=== PATIENT | female | born 2000 | race Hispanic/Latino ===

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

== ENCOUNTER 2021-05-27 18:01 | Emergency (ER) | payer OTHER ==
--- OUTSIDE RECORDS SUMMARY | 2021-05-27 18:06 | XMS REPORT | Continuity of Care Document ---
:2000 Author Organization [facility] t Address [address] [place] [address] Care Team Providers Name Role Phone PCP, DOES NOT HAVE A Primary Care Physician Unavailable RONI SMITH Attending Clinician Unavailable RONI SMITH Attending Clinician Unavailable Chandan Santamaria MD Attending Clinician Antonio OCAMPO Attending Clinician Sj ISRAEL Attending Clinician Sheyla ISRAEL Attending Clinician SJ Attending Clinician Unavailable Courtney Smith MD Attending Clinician Doctor Unassigned, Name Attending Clinician Unavailable López Attending Clinician Eusebio Rivera MD Attending Clinician Eusebio RIVERA Attending Clinician Unavailable Chandan Santamaria MD Admitting Clinician CHANDAN SANTAMARIA Admitting Clinician Unavailable Eusebio RIVERA Admitting Clinician Unavailable Payers Payer Name Policy Type Policy Number Effective Date Expiration Date Courtney JONES [id number] 2019 00:00:00 [place] [employer] [id number] 2017 HEALTH 00:00:00 Problems Condition Condition Condition Status Onset Resolution Last Treating Co mments Source Name Details Category Date Date Treatment Clinician Date Dehydratio Dehydratio Disease Active U nivers n n 9-12 ity of 00:00: [place] 00 Medical Branch Weakness Weakness Disease Active Unive rs of both of both 9-12 ity of lower lower 00:00: [place] extremitie extremitie 00 Me dical s s Branch Cystitis Cystitis Disease Active Unive rs 9-12 ity of 00:00: [place] 00 Medical Branch Complaints Complaints Disease Active U nivers of of 9-12 ity of weakness weakness 00:00: [place] of lower of lower 00 Medica l extremity extremity Bran ch No known No known Disease Unive rs active active ity of problems problems [facility] Allergies, Adverse Reactions, Alerts Allergy Allergy Status Severity Reaction(s) Onset Inactive Treating Comm ents Source Name Type Date Date Clinician [place] Propensi Active Hives Univers And ty to 9-10 ity of Derivati adverse 00:00: [place] ves reaction 00 Medical s Branch CITRUS Drug Active Hives Univers AND Class 9-10 ity of DERIVATI 00:00: [place] VES 00 Medical Branch Fruit Propensi Active Unknown - Allergy Univ ers Flavor ty to See comments 10-06 to ity of adverse 00:00: oranges [place] reaction 00 Medical s Branch FRUIT DRUG Active Unknown-Cmnt Univ ers FLAVOR INGREDI 10-06 ity of 00:00: [place] 00 Medical Branch Social History Social Habit Start Date Stop Date Quantity Comments Source Exposure to Not sure [facility] SARS-CoV-2 (event) [facility] Tobacco use and 2017-11-19 2017-11-19 Never used [facility] exposure 00:00:00 00:00:00 Medical [place] Sex Assigned At [birth year] [facility] 00:00:00 00:00:00 Medical Branch Smoking Status Start Date Stop Date Source Never smoker [facility] Medications Ordered Filled Start Stop Current Ordering Indication Dosage Frequency Signature Comments Components Source Medication Medication Date Date Medication? Clinician (SIG) Name Name Potassium Yes 40meq 40 mEq, Univ ers Bicarb-Citr 12-04 Oral, ity of ic Acid 14:00: DAILY, [place] (EFFER-K) 00 First dose Medi lilibeth effervescen on Thu [place] t tablet 40 12/04/20 at mEq 0900, Until Discontinu ed, Routine Potassium Yes 40meq 40 mEq, Univ ers Bicarb-Citr 9-14 Oral, ity of ic Acid 14:00: DAILY, [place] (EFFER-K) 00 First dose Medi lilibeth effervescen on Thu t tablet 40 12/04/20 at mEq 0900, Until Discontinu ed, Routine prazosin Yes 1mg 1 mg, Univers (MINIPRES) 9-14 Oral, QHS, ity of capsule 1 02:00: [place] 00 on [facility] 12/03/20 at [place] 2100, Until Discontinu ed, Routine prazosin Yes 1mg 1 mg, Univers (MINIPRES) 9-14 Oral, QHS, ity of capsule 1 02:00: First dose [place] mg 00 on [facility] 12/03/20 at [place] 2100, Until Discontinu ed, Routine vitamin 2020- No [id number] 1000ug Take 1 U nivers B-12 1,000 9-14 10-15 tablet by ity of mcg tablet 00:00: 04:59 mouth [place] 00 :00 daily for Medical 30 days. [place] vitamin 2020- No [id number] 1000ug Take 1 U nivers B-12 1,000 -14 10-15 tablet by ity of mcg tablet 00:00: 04:59 mouth [place] 00 :00 daily for Medical 30 days. [place] gadoteridol 2020- No [id number] .2mL/kg 11.8 mL Univers (PROHANCE-1 12-03 (0.2 mL/kg i ty of 5 mL) 17:00: 17:00 ?59 kg), [place] injection 00 :00 Intravenou Medi lilibeth 11.8 mL s, ONCE, 1 Branch dose, On [facility] 12/03/20 at 1200, Routine gadoteridol 2020- No [id number] .2mL/kg 11.8 mL Univers (PROHANCE-1 12-03 (0.2 mL/kg i ty of 5 mL) 17:00: 17:00 ?59 kg), [place] injection 00 :00 Intravenou Medi lilibeth 11.8 mL s, ONCE, 1 Branch dose, On [facility] 12/03/20 at 1200, Routine vitamin Yes 1000ug 1,000 mcg, Un spring B-12 12-03 Oral, ity of (CYANOCOBAL 14:00: DAILY, [place] RAM) 00 First dose Medical tablet on Mon Branch 1,000 mcg 12/03/20 at 0900, Until Discontinu ed, Routine pantoprazol Yes 40mg 40 mg, [facility] ers e 12-03 Oral, ity of (PROTONIX) 14:00: DAILY, [place] EC tablet 00 First dose Medi lilibeth 40 mg on Thu Branch 12/03/20 at 0900, Until Discontinu ed, Routine vitamin 0 Yes 1000ug 1,000 mcg, Un spring B-12 12-03 Oral, ity of (CYANOCOBAL 14:00: DAILY, [place] RAM[place] 00 First dose Medical tablet on [facility] Branch 1,000 mcg 12/03/20 at 0900, Until Discontinu ed, Routine pantoprazol Yes 40mg 40 mg, Univ ers e 12-03 Oral, ity of (PROTONIX) 14:00: DAILY, [place] EC tablet 00 First dose Medi lilibeth 40 mg on [facility] Branch 12/03/20 at 0900, Until Discontinu ed, Routine potassium 2020- No 20meq 20 mEq, IV Univers chloride 20 12-03 [place], i ty of mEq/100 mL 13:00: 16:59 Q2H, 2 [place] (KCL) 20 00 :00 doses, Medical mEq/100 mL First dose Bra [facility] RTU IVPB 20 on Thu mEq 12/03/20 at 0800, Last dose on Thu12/03/20 at 1000, 100 mL potassium 2020- No 20meq 20 mEq, IV Univers chloride 20 12-03 [place], i ty of mEq/100 mL 13:00: 16:59 Q2H, 2 [place] (KCL) 20 00 :00 doses, Medical mEq/100 mL First dose Bra [facility] RTU IVPB 20 on Thu mEq 12/03/20 at 0800, Last dose on Thu12/03/20 at 1000, 100 mL ciprofloxac 2020-2020- No [id number] 500mg Take 1 Univers in HCl 500 12-03 tablet by ity of mg tablet 00:00: 04:59 mouth [place] 00 :00 every 12 Medical (twelve) Branch hours for 7 days. ciprofloxac 2020- No [id number] 500mg Take 1 Univers in HCl 500 12-03 tablet by ity of mg tablet 00:00: 04:59 mouth [place] 00 :00 every 12 Medical (twelve) Branch hours for 7 days. enoxaparin Yes 40mg 40 mg, Unive rs (LOVENOX) 12-02 Subcutaneo ity of injection 22:00: [place], DAILY, [place] 40 mg 00 First dose Medical on [facility] 12/02/20 at 1700, Until Discontinu ed, Routine enoxaparin Yes 40mg 40 mg, Unive rs (LOVENOX) 12-02 Subcutaneo ity of injection 22:00: us, DAILY, [place] 40 mg 00 First dose Medical on [facility] 12/02/20 at 1700, Until Discontinu ed, Routine gadoteridol 2020- No [id number] .2mL/kg 11.8 mL Univers (PROHANCE-1 12-02 (0.2 mL/kg i ty of 5 mL) 17:45: 17:45 ?59 kg), [place] injection 00 :00 Intravenou Medi lilibeth 11.8 mL s, ONCE, 1 Branch dose, On [place] 12/02/20 at 1245, Routine gadoteridol 2020- No [id number] .2mL/kg 11.8 mL Univers (PROHANCE-1 12-02 (0.2 mL/kg i ty of 5 mL) 17:45: 17:45 ?59 kg), [place] injection 00 :00 Intravenou Medi lilibeth 11.8 mL s, ONCE, 1 Branch dose, On [place] 12/02/20 at 1245, Routine cefTRIAXone Yes 1000mg 1,000 mg, Univers (ROCEPHIN) 12-02 IV ity of 1,000 mg in 16:30: Piggyback, [place] NaCl 0.9% 00 Q24H ABX, Medic al (NS) 50 mL First dose Bra [facility] MINI-BAG on [place] 12/02/20 at 1130, Until Discontinu ed, Administer over 30 Minutes, 50 mL
Reas on for Anti-Infec tive: Documented Infection< br>Documen carole Infection Site: Urine
D uration of Therapy: 7 days cefTRIAXone 0 Yes 1000mg 1,000 mg, Univers (ROCEPHIN) 9-12 IV ity of 1,000 mg in 16:30: Piggyback, [place] NaCl 0.9% 00 Q24H ABX, Medic al (NS) 50 mL First dose Bra [facility] MINI-BAG on [place] 12/02/20 at 1130, Until Discontinu ed, Administer over 30 Minutes, 50 mL
Reas on for Anti-Infec tive: Documented Infection< br>Documen carole Infection Site: Urine
D uration of Therapy: 7 days NaCl 0.9% 0 Yes 1000mL at 50 Unive rs (NS) IV 9-12 mL/hr, IV ity of infusion 15:30: Infusion, [place] 1,000 mL 00 CONTINUOUS Medic al , Starting Branch on [place] 12/02/20 at 1030, Until Discontinu ed, Routine NaCl 0.9% 0 Yes 1000mL at 50 Unive rs (NS) IV 9-12 mL/hr, IV ity of infusion 15:30: Infusion, [place] 1,000 mL 00 CONTINUOUS Medic al , Starting Branch on [place] 12/02/20 at 1030, Until Discontinu ed, Routine acetaminoph 0 Yes 650mg 650 mg, Un spring en 12 Oral, ity of (TYLENOL) 15:19: Q6HPRN, [place] tablet 650 42 Starting Medic al mg on [facility] 12/02/20 at 1019, Until Discontinu ed, Routine, Pain (scale 4-6) docusate 0 Yes 100mg 100 mg, Unive rs (COLACE) 912 Oral, ity of capsule 100 15:19: QDAILYPRN, [place] mg 42 Starting Medical on [facility] 12/02/20 at 1019, Until Discontinu ed, Routine, Constipati on acetaminoph 0 Yes 650mg 650 mg, Un spring en 9-12 Oral, ity of (TYLENOL) 15:19: Q6HPRN, [place] tablet 650 42 Starting Medic al mg on [facility] 12/02/20 at 1019, Until Discontinu ed, Routine, Pain (scale 4-6) docusate Yes 100mg 100 mg, Unive rs (COLACE) 12-02 Oral, ity of capsule 100 15:19: QDAILYPRN, [place] mg 42 Starting Medical on [facility] 12/02/20 at 1019, Until Discontinu ed, Routine, Constipati on midazolam 2020- No 1mg 1 mg, IV Uni vers (VERSED) 12-02 Push, ity of injection 1 11:15: 10:15 ONCE, 1 [place] mg 00 :[facility] dose, [facility] 12/02/20 at Branch 0615, STAT midazolam 2020-0 2020- No 1mg 1 mg, IV Uni vers (VERSED) 12-02 Push, ity of injection 1 11:15: 10:15 ONCE, 1 [place] mg 00 :[place] dose, [facility] 12/02/20 at [place] 0615, STAT midazolam 2020-2020- No 1mg 1 mg, IV Uni vers (VERSED) 12-02 Push, ity of injection 1 10:45: 09:30 ONCE, 1 [place] mg 00 :00 dose, [facility] 12/02/20 at Branch 0545, STAT midazolam 2020-2020- No 1mg 1 mg, IV Uni vers (VERSED) 12-02 Push, ity of injection 1 10:45: 09:30 ONCE, 1 [place] mg 00 :00 dose, [facility] 12/02/20 at Branch 0545, STAT NaCl 0.9% Yes 1000mL at 125 Univ ers (NS) IV 9-12 mL/hr, IV ity of infusion 10:00: Infusion, [place] 1,000 mL 00 CONTINUOUS Medic al , Starting [facility] 12/02/20 at 0500, Until Discontinu ed, Routine NaCl 0.9% 0 Yes 1000mL at 125 Univ ers (NS) IV 9-12 mL/hr, IV ity of infusion 10:00: Infusion, [place] 1,000 mL 00 CONTINUOUS Medic al , Starting [facility] 12/02/20 at 0500, Until Discontinu ed, Routine ondansetron Yes 4mg 4 mg, Slow Univers (ZOFRAN 12-02 IV Push, ity of (PF)) 09:52: Q6HPRN, [place] injection 4 57 Starting Medi lilibeth mg [facility] 12/02/20 at 0452, Until Discontinu ed, Routine, Nausea and Vomiting (N/V) ondansetron 2020-0 Yes 4mg 4 mg, Slow Univers (ZOFRAN 12-02 IV Push, ity of (PF)) 09:52: Q6HPRN, [place] injection 4 57 Starting Medi lilibeth mg [facility] 12/02/20 at 0452, Until Discontinu ed, Routine, Nausea and Vomiting (N/V) acetaminoph 1-0 Yes 650mg 650 mg, Un spring en 12 Oral, ity of (TYLENOL) 09:52: Q6HPRN, [place] tablet 650 44 Starting Medic al mg [facility] 12/02/20 at 0452, Until Discontinu ed, Routine, Pain (scale 1-3), Temp > 38.5 C acetaminoph 2020-0 Yes 650mg 650 mg, Un spring en 12-02 Oral, ity of (TYLENOL) 09:52: Q6HPRN, [place] tablet 650 44 Starting Medic al mg [facility] 12/02/20 at 0452, Until Discontinu ed, Routine, Pain (scale 1-3), Temp > 38.5 C NaCl 0.9% 2020- No 1000mL at 999 Uni vers (NS) bolus 12-02 mL/hr, ity of infusion 09:00: 10:23 1,000 mL, [place] 1,000 [facility] 00 :[facility], [place] 12/02/20 at 0400, STAT NaCl 0.9% 2020- No 1000mL at 999 Uni vers (NS) bolus 12-02 mL/hr, ity of infusion 09:00: 10:23 1,000 mL, [place] 1,000 mL 00 :00 IV Medical Piggyback, [place] ONCE, 1 dose, [place] 12/02/20 at 0400, STAT cefTRIAXone 2020-2020- No 1000mg 1,000 mg, Univers (ROCEPHIN) 12-02 IV ity of 1,000 mg in 08:45: 08:24 [place], [place] NaCl 0.9% 00 :00 ONCE, 1 Medical (NS) 50 mL dose, [place] Bran ch MINI-BAG 12/02/20 at 0345, Administer over 30 Minutes, 50 mL
R fabio for Anti-Infec tive: Documented Infection< br>Documen carole Infection Site: Urine
D uration of Therapy: 7 days cefTRIAXone 2020-2020- No 1000mg 1,000 mg, Univers (ROCEPHIN) 12-02 IV ity of 1,000 mg in 08:45: 08:24 [place], [place] NaCl 0.9% 00 :00 ONCE, 1 Medical (NS) 50 mL dose, [place] Bran ch MINI-BAG 12/02/20 at 0345, Administer over 30 Minutes, 50 mL
R fabio for Anti-Infec tive: Documented Infection< br>Documen carole Infection Site: Urine
D uration of Therapy: 7 days midazolam 2020-2020- No 1mg 1 mg, IV Uni vers (VERSED) 12-02 Push, ity of injection 1 07:15: 06:42 ONCE, 1 [place] mg 00 :[place] dose, [facility] 12/02/20 at Branch 0215, STAT midazolam 2020-2020- No 1mg 1 mg, IV Uni vers (VERSED) 12-02 Push, ity of injection 1 07:15: 06:42 ONCE, 1 [place] mg 00 :[place] dose, [facility] 12/02/20 at Branch 0215, STAT NaCl 0.9% 2020- No 500mL at 999 Univ ers (NS) bolus 12-02 mL/hr, 500 it y of infusion 07:00: 07:12 mL, IV [place] 500 mL 00 :00 Piggyback, [facility] ONCE, 1 Branch dose, [place] 12/02/20 at 0200, STAT NaCl 0.9% 2020-2020- No 500mL at 999 Univ ers (NS) bolus 12-02 mL/hr, 500 it y of infusion 07:00: 07:12 mL, IV [place] 500 mL 00 :00 Piggy[place], Medical ONCE, 1 Branch dose, [place] 12/02/20 at 0200, STAT cefTRIAXone 2020-0 2021- No 1000mg 1,000 mg, Univers (ROCEPHIN) 11-30 IV ity of 1,000 mg in :30: 07:03 [place], [place] NaCl 0.9% 00 :00 ONCE, 1 Medical (NS) 50 mL dose, Fri Bran ch MINI-BAG 11/30/20 at 0230, Administer over 30 Minutes, 50 mL
R fabio for Anti-Infec tive: Documented Infection< br>Documen carole Infection Site: Urine
D uration of Therapy: Other (see Comments) cefTRIAXone 2020- No 1000mg 1,000 mg, Univers (ROCEPHIN) 11-30 IV ity of 1,000 mg in :30: 07:03 [place], [place] NaCl 0.9% 00 :00 ONCE, 1 Medical (NS) 50 mL dose, Fri Bran ch MINI-BAG 11/30/20 at 0230, Administer over 30 Minutes, 50 mL
R fabio for Anti-Infec tive: Documented Infection< br>Documen carole Infection Site: Urine
D uration of Therapy: Other (see Comments) Nitrofurant Yes [id number] 100mg Take 1 Univers oin&Nit. 9-10 capsule by ity o f Macroc[place] 00:00: mouth 2 [place] (MACROBID) 00 (two) Medical 100 mg times Branch capsule daily. Nitrofurant Yes [id number] 100mg Take 1 Univers oin&Nit. 9-10 capsule by ity o f Macrocryst 00:00: mouth 2 [place] (MACROBID) 00 (two) Medical 100 mg times Branch capsule daily. Nitrofurant Yes [id number] 100mg Take 1 Univers oin&Nit. 9-10 capsule by ity o f Macrocryst 00:00: mouth 2 [place] (MACROBID) 00 (two) Medical 100 mg times Branch capsule daily. Nitrofurant Yes [id number] 100mg Take 1 Univers oin&Nit. 9-10 capsule by ity o f Macrocryst 00:00: mouth 2 [place] (MACROBID) 00 (two) Medical 100 mg times Branch capsule daily. Nitrofurant Yes [id number] 100mg Take 1 Univers oin&Nit. 9-10 capsule by ity o f Macrocryst 00:00: mouth 2 [place] (MACROBID) 00 (two) Medical 100 mg times Branch capsule daily. Nitrofurant Yes [id number] 100mg Take 1 Univers oin&Nit. 9-10 capsule by ity o f Macrocryst 00:00: mouth 2 [place] (MACROBID) 00 (two) Medical 100 mg times Branch capsule daily. Nitrofurant Yes [id number] 100mg Take 1 Univers oin&Nit. 9-10 capsule by ity o f [place]ryst 00:00: mouth 2 [place] (MACROBID) 00 (two) Medical 100 mg times Branch capsule daily. HYDROcodone 2020- No 1{tbl} 1 tablet, Univers -acetaminop 3-08 03-08 Oral, ity of hen (NORCO 06:45: 05:37 ONCE, 1 [place] 5) 5-325 mg 00 :00 dose, [place] Med ical tablet 1 05/29/19 at Branch tablet 0045, CHEN hydrocortis 2015-0 Yes Apply to U nivers one 1 % 3-11 affected ity of cream 00:00: area(s) [place] 00 daily. Medical Branch hydrocortis 2015- Yes Apply to U nivers one 1 % 3-11 affected ity of cream 00:00: area(s) [place] 00 daily. Medical Branch hydrocortis 2015- Yes Apply to U nivers one 1 % 3-11 affected ity of cream 00:00: area(s) [place] 00 daily. Medical Branch hydrocortis 2015-0 Yes Apply to U nivers one 1 % 3-11 affected ity of cream 00:00: area(s) [place] 00 daily. Medical Branch hydrocortis 2015-0 Yes Apply to U nivers one 1 % 3-11 affected ity of cream 00:00: area(s) [place] 00 daily. Medical Branch hydrocortis 2015-0 Yes Apply to U nivers one 1 % 3-11 affected ity of cream 00:00: area(s) [place] 00 daily. Medical Branch hydrocortis 2015-0 Yes Apply to U nivers one 1 % 3-11 affected ity of cream 00:00: area(s) [place] 00 daily. Medical Branch hydrocortis 2016-0 Yes Apply to U nivers one 1 % 3-11 affected ity of cream 00:00: area(s) [place] 00 daily. Medical Branch hydrocortis 2016-0 Yes Apply to U nivers one 1 % 3-11 affected ity of cream 00:00: area(s) [place] 00 daily. Medical Branch hydrocortis 2016-0 Yes Apply to U nivers one 1 % 3-11 affected ity of cream 00:00: area(s) [place] 00 daily. Medical Branch crotamiton 2016-0 Yes [id number] After warm Univers (EURAX) 10 3-08 bath apply ity of % lotion 00:00: lotion to [place] 00 entire Medical body Branch excluding face and scalp. Repeat in 24 hours. cetirizine 2015- Yes [id number] 10mg Take 1 Tab Univers (ZYRTEC) 10 3-08 by mouth ity of mg tablet 00:00: at bedtime [place] 00 as needed Medical for Other Branch (itching). crotamiton 0 Yes [id number] After warm Univers (EURAX) 10 3-08 bath apply ity of % lotion 00:00: lotion to [place] 00 entire Medical body Branch excluding face and scalp. Repeat in 24 hours. cetirizine 2015-0 Yes [id number] 10mg Take 1 Tab Univers (ZYRTEC) 10 3-08 by mouth ity of mg tablet 00:00: at bedtime [place] 00 as needed Medical for Other Branch (itching). crotamiton 2015-0 Yes [id number] After warm Univers (EURAX) 10 3-08 bath apply ity of % lotion 00:00: lotion to [place] 00 entire Medical body Branch excluding face and scalp. Repeat in 24 hours. cetirizine 2015-0 Yes [id number] 10mg Take 1 Tab Univers (ZYRTEC) 10 3-08 by mouth ity of mg tablet 00:00: at bedtime [place] 00 as needed Medical for Other Branch (itching). crotamiton 2015-0 Yes [id number] After warm Univers (EURAX) 10 3-08 bath apply ity of % lotion 00:00: lotion to [place] 00 entire Medical body Branch excluding face and scalp. Repeat in 24 hours. cetirizine Yes [id number] 10mg Take 1 Tab Univers (ZYRTEC) 10 3-08 by mouth ity of mg tablet 00:00: at bedtime [place] 00 as needed Medical for Other Branch (itching). crotamiton Yes [id number] After warm Univers (EURAX) 10 3-08 bath apply ity of % lotion 00:00: lotion to [place] 00 entire Medical body Branch excluding face and scalp. Repeat in 24 hours. cetirizine Yes [id number] 10mg Take 1 Tab Univers (ZYRTEC) 10 3-08 by mouth ity of mg tablet 00:00: at bedtime [place] 00 as needed Medical for Other Branch (itching). crotamiton Yes [id number] After warm Univers (EURAX) 10 3-08 bath apply ity of % lotion 00:00: lotion to [place] 00 entire Medical body Branch excluding face and scalp. Repeat in 24 hours. cetirizine Yes [id number] 10mg Take 1 Tab Univers (ZYRTEC) 10 3-08 by mouth ity of mg tablet 00:00: at bedtime [place] 00 as needed Medical for Other Branch (itching). crotamiton Yes [id number] After warm Univers (EURAX) 10 3-08 bath apply ity of % lotion 00:00: lotion to [place] 00 entire Medical body Branch excluding face and scalp. Repeat in 24 hours. cetirizine Yes [id number] 10mg Take 1 Tab Univers (ZYRTEC) 10 3-08 by mouth ity of mg tablet 00:00: at bedtime [place] 00 as needed Medical for Other Branch (itching). crotamiton Yes [id number] After warm Univers (EURAX) 10 3-08 bath apply ity of % lotion 00:00: lotion to [place] 00 entire Medical body Branch excluding face and scalp. Repeat in 24 hours. cetirizine Yes [id number] 10mg Take 1 Tab Univers (ZYRTEC) 10 3-08 by mouth ity of mg tablet 00:00: at bedtime [place] 00 as needed Medical for Other Branch (itching). crotamiton Yes [id number] After warm Univers (EURAX) 10 3-08 bath apply ity of % lotion 00:00: lotion to [place] 00 entire Medical body Branch excluding face and scalp. Repeat in 24 hours. cetirizine Yes [id number] 10mg Take 1 Tab Univers (ZYRTEC) 10 3-08 by mouth ity of mg tablet 00:00: at bedtime [place] 00 as needed Medical for Other Branch (itching). crotamiton Yes [id number] After warm Univers (EURAX) 10 3-08 bath apply ity of % lotion 00:00: lotion to [place] 00 entire Medical body Branch excluding face and scalp. Repeat in 24 hours. cetirizine Yes [id number] 10mg Take 1 Tab Univers (ZYRTEC) 10 3-08 by mouth ity of mg tablet 00:00: at bedtime [place] 00 as needed Medical for Other Branch (itching). albuterol Yes 1{puff} Inhale 1-2 Univers (PROAIR 7-17 Puffs ity of HFA) 90 00:00: every 6 [place] mcg/actuati 00 (six) Medical on inhaler hours as Branc h needed for Wheezing or Shortness of Breath. albuterol Yes 1{puff} Inhale 1-2 Univers (PROAIR 7-17 Puffs ity of HFA) 90 00:00: every 6 [place] mcg/actuati 00 (six) Medical on inhaler hours as Branc h needed for Wheezing or Shortness of Breath. albuterol Yes 1{puff} Inhale 1-2 Univers (PROAIR 7-17 Puffs ity of HFA) 90 00:00: every 6 [place] mcg/actuati 00 (six) Medical on inhaler hours as Branc h needed for Wheezing or Shortness of Breath. albuterol Yes 1{puff} Inhale 1-2 Univers (PROAIR 7-17 Puffs ity of HFA) 90 00:00: every 6 [place] mcg/actuati 00 (six) Medical on inhaler hours as Branc h needed for Wheezing or Shortness of Breath. albuterol 2014-0 Yes 1{puff} Inhale 1-2 Univers (PROAIR 7-17 Puffs ity of HFA) 90 00:00: every 6 [place] mcg/actuati 00 (six) Medical on inhaler hours as Branc h needed for Wheezing or Shortness of Breath. albuterol 2014- Yes 1{puff} Inhale 1-2 Univers (PROAIR 7-17 Puffs ity of HFA) 90 00:00: every 6 [place] mcg/actuati 00 (six) Medical on inhaler hours as Branc h needed for Wheezing or Shortness of Breath. albuterol 2014-0 Yes 1{puff} Inhale 1-2 Univers (PROAIR 7-17 Puffs ity of HFA) 90 00:00: every 6 [place] mcg/actuati 00 (six) Medical on inhaler hours as Branc h needed for Wheezing or Shortness of Breath. albuterol 2014-0 Yes 1{puff} Inhale 1-2 Univers (PROAIR 7-17 Puffs ity of HFA) 90 00:00: every 6 [place] mcg/actuati 00 (six) Medical on inhaler hours as Branc h needed for Wheezing or Shortness of Breath. albuterol 2014-0 Yes 1{puff} Inhale 1-2 Univers (PROAIR 7-17 Puffs ity of HFA) 90 00:00: every 6 [place] mcg/actuati 00 (six) Medical on inhaler hours as Branc h needed for Wheezing or Shortness of Breath. albuterol Yes 1{puff} Inhale 1-2 Univers (PROAIR 7-17 Puffs ity of HFA) 90 00:00: every 6 [place] mcg/actuati 00 (six) Medical on inhaler hours as Branc h needed for Wheezing or Shortness of Breath. Immunizations Ordered Filled Immunization Date Status Comments [facility] e Immunization Name Name HPV9 2015-05-17 Completed University of 00:00:00 [facility] HPV9 2015-05-17 Completed University of 00:00:00 [facility] HPV9 2015-05-17 Completed University of 00:00:00 [facility] HPV9 2015-05-17 Completed University of 00:00:00 [facility] HPV9 2015-05-17 Completed University of 00:00:00 [facility] HPV9 2015-05-17 Completed University of 00:00:00 [facility] HPV9 2015-05-17 Completed University of 00:00:00 [facility] HPV9 2015-05-17 Completed University of 00:00:00 [facility] HPV9 2015-05-17 Completed University of 00:00:00 [facility] HPV9 2015-05-17 Completed University of 00:00:00 [facility] Varicella 2015-01-16 Completed University of (varivax)(chicken 00:00:00 [place] M edical pox) Branch Varicella 2015-01-16 Completed University of (varivax)(chicken 00:00:00 [place] M edical pox) Branch Varicella 2015-01-16 Completed University of (varivax)(chicken 00:00:00 [place] M edical pox) Branch Varicella 2015-01-16 Completed [facility] (varivax[facility] 00:[facility] [place] [facility] Varicella 2015-01-16 Completed [facility] (varivax[facility] 00:[facility] [place] [facility] Branch Varicella 2015-01-16 Completed [facility] (varivax)([facility] 00:00:[facility] [place] [facility] pox) Branch Varicella 2015-01-16 Completed [facility] (varivax)(chicken 00:00:00 [place] [facility] pox) Branch Varicella 2015-01-16 Completed [facility] (varivax)(chicken 00:00:00 [place] [facility] pox) Branch Varicella 2015-01-16 Completed [facility] (varivax)(chicken 00:00:00 [place] [facility] pox) Branch Varicella 2015-01-16 Completed [facility] (varivax)(chicken 00:00:00 [place] [facility] pox[facility] Branch Influenza Virus 2014-12-27 Completed Universit y of Vaccine Quad IM 3+ 00:00:00 [facility] Influenza Virus 2014-12-27 Completed Universit y of Vaccine Quad IM 3+ 00:00:00 [facility] Influenza Virus 2014-12-27 Completed Universit y of Vaccine Quad IM 3+ 00:00:00 [facility] Influenza Virus 2014-12-27 Completed Universit y of Vaccine Quad IM 3+ 00:00:00 [facility] Influenza Virus 2014-12-27 Completed Universit y of Vaccine Quad IM 3+ 00:00:00 [facility] Influenza Virus 2014-12-27 Completed Universit y of Vaccine Quad IM 3+ 00:00:00 [facility] Influenza Virus 2014-12-27 Completed Universit y of Vaccine Quad IM 3+ 00:00:00 [facility] Influenza Virus 2014-12-27 Completed Universit y of Vaccine Quad IM 3+ 00:00:00 [facility] Influenza Virus 2014-12-27 Completed Universit y of Vaccine Quad IM 3+ 00:00:00 [facility] Influenza Virus 2014-12-27 Completed Universit y of Vaccine Quad IM 3+ 00:00:00 [facility] Vital Signs Vital Name Observation Time Observation Value Comments Source Systolic blood 2020-12-04 12:43:00 118 mm[Hg] [facility]iver [facility] Diastolic blood 2020-12-04 12:43:00 65 mm[Hg] Unive rs[facility] Heart rate 2020-12-04 12:43:00 69 /min [facility] Body temperature 2020-12-04 12:43:00 36.5 Latoya [facility] Respiratory rate 2020-12-04 12:43:00 15 /min [facility] Oxygen saturation in 2020-12-04 12:43:00 97 /min [facility] Arterial blood by [facility] Pulse oximetry [place] Body height 2020-12-02 23:01:[address] [facility] Body weight 2020-12-02 23:01:[address] [facility] BMI 2020-12-02 23:01:00 22.31 kg/m2 [facility] Body mass index 2020-12-02 23:01:00 58.99 % Unive rsity of (BMI) [Percentile] [facility] ica Per age and sex Branch Systolic blood 2020-12-02 11:00:00 104 mm[Hg] Univer sity of [facility] Diastolic blood 2020-12-02 11:00:00 71 mm[Hg] Unive rsity of pressure [facility] Heart rate 2020-12-02 11:00:00 74 /min [facility] Respiratory rate 2020-12-02 11:00:00 18 /min [facility] [place] [facility] Oxygen saturation in 2020-12-02 11:00:00 98 /min [facility] of Arterial blood by [facility] Pulse oximetry Branch Body temperature 2020-12-02 05:55:00 36.44 Latoya [facility] [place] [facility] Body height 2020-12-02 05:55:00 162.6 cm [facility] [place] [facility] Body weight 2020-12-02 05:55:00 58.968 kg [facility] [place] [facility] BMI 2020-12-02 05:55:00 22.31 kg/m2 [facility] [place] [facility] Systolic blood 2020-11-30 08:00:00 100 mm[Hg] Univer sity of [facility] Diastolic blood 2020-11-30 08:00:00 66 mm[Hg] Unive rsity of [facility] Heart rate 2020-11-30 08:00:00 55 /min [facility] [place] [facility] Respiratory rate 2020-11-30 08:00:00 14 /min Univ [facility] [place] [facility] Oxygen saturation in 2020-11-30 08:00:00 100 /min [facility] of Arterial blood by [facility] Pulse oximetry Branch Body height 2020-11-30 05:22:00 162.6 cm [facility] [place] [facility] Body weight 2020-11-30 05:22:00 58.968 kg [facility] [place] [facility] BMI 2020-11-30 05:22:00 22.31 kg/m2 [facility] [place] [facility] Body temperature 2020-11-30 05:10:00 36.44 Latoya [facility] [place] [facility] Body temperature 2019-05-29 05:43:00 36.61 Latoya [facility] [place] [facility] Systolic blood 2019-05-29 04:50:00 118 mm[Hg] Univer [facility]ity of [facility] [place] [facility] Diastolic blood 2019-05-29 04:50:00 86 mm[Hg] Unive rsity [facility] [place] [facility] Heart rate 2019-05-29 04:50:00 61 /min [facility] [place] [facility] Respiratory rate 2019-05-29 04:50:00 18 /min Univ [facility] [place] [facility] Oxygen saturation in 2019-05-29 04:50:00 99 /min [place] of Arterial blood by [facility] Pulse oximetry Branch Body weight 2019-05-29 02:56:[address] [facility] Body temperature 2019-05-29 05:43:00 36.61 Latoya [facility] Systolic blood 2019-05-29 04:50:00 118 mm[Hg] Univer sity of pressure [facility] Diastolic blood 2019-05-29 04:50:00 86 mm[Hg] Unive rsity of pressure [facility] Heart rate 2019-05-29 04:50:00 61 /min [facility] Respiratory rate 2019-05-29 04:50:00 18 /min [facility] Oxygen saturation in 2019-05-29 04:50:00 99 /min [facility] Arterial blood by [facility] Pulse oximetry [place] Body weight 2019-05-29 02:56:[address] [facility] Procedures Procedure Date / Time Performing Source Performed Clinician MR BRAIN W WO CONTRAST 2020-12-03 [facility] [facility] GALV ONLY - SYPHILIS IGG/IGM 2020-12-03 Jose Martin [facility] 09:57:[address] [facility] ELECTROENCEPHALOGRAM 2020-12-03 [facility] [facility] MR LUMBAR SPINE W WO CONTRAST 2020-12-02 Marquez Philippe [facility] 17:43:[address] [place] [address] LUMBAR SPINE WO CONTRAST 2020-12-02 Marquez Philippe [facility] 16:47:15 Medical Branch PHOSPHORUS 2020-12-02 Jose Martin [facility] 16:10:00 Medical Branch CREATINE KINASE 2020-12-02 [facility] 16:10[facility]00 [facility] Branch MAGNESIUM 2020-12-02 [facility] 16:10:00 [facility] Branch VITAMIN B12, LEVEL 2020-12-02 Jose Martin [facility] 16:10:00 Medical Branch FOLATE 2020-12-02 [facility] 16:10[facility] Medical Branch BASIC METABOLIC PANEL (NA, K, 2020-12-02 Marquez Philippe [facility] CL, CO2, GLUCOSE, BUN, 16:10:00 Medical B ranch CREATININE, CA) CBC WITH DIFF 2020-12-02 Jose Martin [facility] x[facility] 16:10:00 [facility] Branch HIV 1/2 AG-AB WITH REFLEX 2020-12-02 Marquez Philippe [facility] 16:10:[address] ABDOMEN PELVIS WO CONTRAST 2020-12-02 Jermain Ghosh [facility] 08:43:26 [facility] Branch CREATINE KINASE 2020-12-02 Sj [facility] xa 07:13:00 [facility] Branch COMP. METABOLIC PANEL ([id number]) 2020-12-02 Jermain Ghosh [facility] 07:13:[address] [facility] THYROID STIMULATING HORMONE 2020-12-02 Jose Martin [facility] 07:13:[address] [facility] POCT TEST 2020-12-02 Sj [facility] [place] 06:36:[address] [facility] COVID-19 (ID NOW RAPID 2020-12-02 Sj [facility] TESTING) 06:35:[address] [facility] URINE DRUG (IMMUNOASSAY) - 2020-12-02 Sj [facility] COMPREHENSIVE DRUG SCREEN W/O 06:32:00 Nc dical Branch REFLEX URINALYSIS 2020-12-02 Sj [facility] xa 06:31:00 [facility] Branch CBC WITH DIFF 2020-12-02 Sj [facility] xa 06:15:[address] [facility] LACTIC ACID WHOLE BLOOD 2020-12-02 Jermani Ghosh [facility] 06:14:00 [facility] Branch NOTICE OF PRIVACY PRACTICES 2020-12-02 Doctor Unassigned, [facility] 05:51:23 [facility] CONSENT/REFUSAL FOR DIAGNOSIS 2020-12-02 Doctor Unassigned, [facility] AND TREATMENT 05:51:04 [facility] [address] [place] [address] HEAD WO CONTRAST 2020-11-30 Chauncey Smith [facility] 06:48:[address] [facility] POCT GLUCOSE(AGE >30DAYS) 2020-11-30 Chauncey Smith [facility] 05:31:00 Medical Branch AC PANEL 20 + LACTIC ACID 2020-11-30 Chauncey Smith [facility] 05:31:00 Medical Branch POCT GLUCOSE (AUTOMATED) 2020-11-30 Chauncey Smith [facility] 05:30:00 Medical Branch POCT TEST 2020-11-30 Chauncey Smith [facility] 05:26:[address] [facility] URINE DRUG (IMMUNOASSAY) - 2020-11-30 Chauncey Smith [facility] COMPREHENSIVE DRUG SCREEN 05:25:00 Medica l [place] URINALYSIS 2020-11-30 Chauncey Smith [facility] ex 05:25:00 Medical Branch COVID-19 (ID NOW RAPID 2020-11-30 Chauncey Smith [facility] TESTING) 05:25:00 Medical Branch MAGNESIUM 2020-11-30 Chauncey Smith [facility] ex 05:16:00 Medical Branch COMP. METABOLIC PANEL (03917) 2020-11-30 Chauncey Smith [facility] 05:16:00 Medical Branch CBC WITH DIFF 2020-11-30 Chauncey Smith [facility] 05:16:00 Medical Branch CREATINE KINASE 2020-11-30 Chauncey Smith [facility] 05:15:[address] [facility] NOTICE OF PRIVACY PRACTICES 2020-11-30 Doctor Unassigned, [facility] 05:01:00 [facility] CT HEAD WO CONTRAST 2019-05-29 Alec Rivera [facility] 04:16:04 Medical Branch XR CERVICAL SPINE 3 VW 2019-05-29 Alec Rivera [facility] 04:15:52 Medical [place] NOTICE OF PRIVACY PRACTICES 2019-05-29 Doctor Unassigned, [facility] 03:47:53 [facility] CONSENT/REFUSAL FOR DIAGNOSIS 2019-05-29 Doctor Unassigned, [facility] AND TREATMENT 03:47:41 [facility] Encounters Start End Encounter Admission Attending Care Care Encounter Source Date/Time Date/Time Type Type Clinicians Facility Department ID 2021-01-21 Emergency X [facility] [id number] Univers 22:04:01 ity of [facility] 2021-01-[address] [facility] [id number] Univers 22:03:07 ity of [facility] 2021-01-[address] [facility] [id number] Univers 21:40:40 ity of [facility] 2020 [address] [facility] [id number] Univers 15:00:00 15:00:00 SARAHBRADY [id number] ity of [facility] 2020 [address] [facility] [id number] Univers 15:00:00 15:00:00 SARAHBRADY [place] ity [facility] 2020-12-02 2020-12-04 Emergency [place] [id number] Univers 09:18:00 10:50:00 Lazaro Mckeon [id number] i ty [facility] 4.2.7.2.686 Tram[place] [id number] [place] [id number] Branch 2020-12-02 2020-12-02 Emergency AlvarezJanine mcgrath [facility] [id number] Univers 00:47:00 09:12:00 Jermain Ghosh [id number] ity Nicholas Carrion 4.2.7.2.686 [facility] [id number] [place] [address] Branch 2020-12-02 2020-12-02 Outpatient X SJ [facility] [id number] Univers 00:47:00 09:12:00 JERMAIN ity of [facility] 2020-11-30 2020-11-30 Emergency Luis [facility] [id number] Univers 00:08:00 04:02:00 Chauncey Farrell [id number] ity [place] 4.2.7.2.686 [facility] [id number] [place] 178714 Branch 2020-11-30 2020-11-30 Orders Doctor FREGOSO [id number] Univers 00:00:00 00:00:00 Only Unassigned, JOSE [id number] ity of [facility] 4.2.7.2.686 Tramaine [phone] [facility] 009 Branch 2019-06-15 2019-06-[address] [facility] [id number] Univers 10:00:00 10:00:00 [id number] ity of [facility] 2019-06-15 2019-06-[address] [facility] [id number] Univers 10:00:00 10:00:00 ity of [facility] 2019-06-15 2019-06-[address] [facility] [id number] Univers 10:00:00 10:00:00 ity of [facility] 2019-06-15 2019-06-15 Telephone de [facility] [id number] Univers 00:00:00 00:00:00 Marcos Lerma [id number] ity of [facility] 4.2.7.2.686 [place] [facility] [id number] [facility] 225 [place] 2019-06-15 2019-06-15 Telephone de [facility] [id number] 00:00:00 00:00:00 Marcos Lerma [id number] [facility] Pediatric 4.2.7.2.686 Clinic [id number] [facility] 2019-06-14 2019-06-[address] [facility] [id number] Univers 14:40:00 14:40:00 [id number] ity of [facility] 2019-06-14 2019-06-[address] [facility] [id number] Univers 14:40:00 14:40:00 ity of [facility] 2019-05-28 2019-05-28 Emergency [place]AL [place], [place] [id number] Univers 20:59:13 23:56:00 Alec Farrell [id number] i ty of [place] 4.2.7.2.686 [facility] [id number] [facility] 084 Branch 2019-05-28 2019-05-28 Emergency X NICOLE [facility] ERT [id number] Univers 20:59:13 23:56:00 ALEC ity of [facility] 2019-05-28 2019-05-28 Emergency [place], [place] [id number] 20:59:13 23:56:00 Alec Farrell [id number] [place] 4.2.7.2.686 [place] [id number] 084 2019-05-28 2019-05-28 Orders Doctor ILDEFONSO [id number] Univers 00:00:00 00:00:00 Only Unassigned, JOSE [id number] ity of [facility] 4.2.7.2.686 [facility] [id number] [address] 2019-05-28 2019-05-28 Orders Doctor FREGOSO [id number] 00:00:00 00:00:00 Only Unassigned, JOSE [id number] [facility] 4.2.7.2.686 [id number] Results Test Description Test Time Test Comments Results Result Comments Source GALV ONLY - SYPHILIS IGG/IGM 2020-12-03 15:29:02 Test Item Value Reference Range Interpretation Comme nts Syphilis IgG/IgM (test code = Non-reactive Non-reactive 08251-3) VIRIDIANA (test code = VIRIDIANA) Non-reactive - No serologic evidence of T. pallidum infection. Cannot exclude incubating or early syphilis. Submit a second specimen in 2-4 weeks if syphilis is clinically suspected. Equivocal - Further testing to follow. Reactive - Further testing to follow. Lab Interpretation (test code = Normal 27790-7) [id number] 15:29:02 Test Item Value Reference Range Interpretation Comments Syphilis IgG/IgM (test Non-reactive Non-reactive code = 19145-0) VIRIDIANA (test code = VIRIDIANA) Non-reactive - No serologic evidence of T. pallidum infection. Cannot exclude incubating or early syphilis. Submit a second specimen in 2-4 weeks if syphilis is clinically suspected. Equivocal - Further testing to follow. Reactive - Further testing to follow. Lab Interpretation (test Normal code = 64852-2) [facility]12, [id number] 23:31:33 Test Item Value Reference Range Interpretation Comments VIT B12 (test code = 367 pg/mL 240-930 3522259248) VIRIDIANA (test code = VIRIDIANA) Biotin has been reported to cause a positive bias, interpret results relative to patient's use of biotin. Lab Interpretation (test Normal code = 80753-8) [facility] B12, [id number] 23:31:33 Test Item Value Reference Range Interpretation Comments VIT B12 (test code = 367 pg/mL 240-930 2021975275) VIRIDIANA (test code = VIRIDIANA) Biotin has been reported to cause a positive bias, interpret results relative to patient's use of biotin. Lab Interpretation (test Normal code = 46572-6) [facility] AG-AB WITH [id number] 22:52:15 Test Item Value Reference Range Interpretation Comments HIV Negative Negative Semi-quantitative (test code = 08715-8) VIRIDIANA (test code = Non-reactive for HIV-1 VIRIDIANA) antigen and HIV-1/HIV-2 antibodies. ?No laboratory evidence of HIV infection. ?Repeat in 2-4 weeks if acute HIV infection is suspected. [facility] AG-AB WITH [id number] 22:52:15 Test Item Value Reference Range Interpretation Comments HIV Negative Negative Semi-quantitative (test code = 15096-8) VIRIDIANA (test code = Non-reactive for HIV-1 VIRIDIANA) antigen and HIV-1/HIV-2 antibodies. ?No laboratory evidence of HIV infection. ?Repeat in 2-4 weeks if acute HIV infection is suspected. [facility] 21:55:01 Test Item Value Reference Range Interpretation Comments FOLATE SER (test code = 10.1 ng/mL 3.0-20.0 8957355929) Lab Interpretation (test code = Normal 35027-5) [facility] 21:55:01 Test Item Value Reference Range Interpretation Comments FOLATE SER (test code = 10.1 ng/mL 3.0-20.0 5404418247) Lab Interpretation (test code = Normal 08179-0) [facility] [id number] 20:12:25 Test Item Value Reference Range Interpretation Comments MAGNESIUM (test code = 9597972038) 1.6 mg/dL 1.7-2.4 L Lab Interpretation (test code = Abnormal 92721-5) [facility] [id number] 20:12:25 Test Item Value Reference Range Interpretation Comments MAGNESIUM (test code = 0567868673) 1.6 mg/dL 1.7-2.4 L Lab Interpretation (test code = Abnormal 02983-9) [facility] Metabolic Panel (Na, K, Cl, CO2, Glucose, BUN, Creatinine, Ca)2020-12-02 20:12:19 Test Item Value Reference Range Interpretation Comments NA (test code = 144 mmol/L 135-145 6379554944) K (test code = 3.3 mmol/L 3.5-5.0 L 0305302783) CL (test code = 114 mmol/L 98-108 H 3286718880) CO2 TOTAL (test code = 21 mmol/L 23-31 L 1001428584) AGAP (test code = 2-16 5838672547) BUN (test code = 4 mg/dL 7-23 L 5755523754) GLUCOSE (test code = 71 mg/dL 70-110 6189625004) CREATININE (test code = 0.57 mg/dL 0.50-1.04 3518985690) CALCIUM (test code = 7.8 mg/dL 8.6-10.6 L 5427110353) eGFR (test code = mL/min/1.73m2 3172832863) VIRIDIANA (test code = VIRIDIANA) Association of Glomerular Filtration Rate (GFR) and Staging of Kidney Disease* + --+ --+ ------+| GFR (mL/min/1.73 m2) ?| With Kidney Damage ?| ?Without Kidney Damage+ --------+ --------+ +| ?>90 ?| ?Stage one ?| ? Normal ?+ ---+ ---+ -------+| ?60-89 ?| ?Stage two ?| ? Decreased GFR ? + --+ --+ ------+| ?30-59 ?| ?Stage three ?| ? Stage three ? + --+ --+ ------+| ?15-29 ?| ?Stage four ? | ? Stage four ?+ ---+ ---+ -------+| ?<15 (or dialysis) ? ?| ?Stage five ? | ? Stage five ?+ ---+ ---+ -------+ *Each stage assumes the associated GFR level has been in effect for at least three months. ?Stages 1 to 5, with or without kidney disease, indicate chronic kidney disease. Notes: Determination of stages one and two (with eGFR >59mL/min/1.73 m2) requires estimation of kidney damage for at least three months as defined by structural or functional abnormalities of the kidney, manifested by either:Pathological abnormalities or Markers of kidney damage (including abnormalities in the composition of the blood or urine or abnormalities in imaging tests). Lab Interpretation Abnormal (test code = 69312-0) [facility] Metabolic Panel (Na, K, Cl, CO2, Glucose, BUN, Creatinine, Ca)2020-12-02 20:12:19 Test Item Value Reference Range Interpretation Comments NA (test code = 144 mmol/L 135-145 0265140085) K (test code = 3.3 mmol/L 3.5-5.0 L 2431945709) CL (test code = 114 mmol/L 98-108 H 8265768237) CO2 TOTAL (test code = 21 mmol/L 23-31 L 2572713206) AGAP (test code = 2-16 6351141193) BUN (test code = 4 mg/dL 7-23 L 9552150458) GLUCOSE (test code = 71 mg/dL 70-110 6965240347) CREATININE (test code = 0.57 mg/dL 0.50-1.04 8839164646) CALCIUM (test code = 7.8 mg/dL 8.6-10.6 L 6973185827) eGFR (test code = mL/min/1.73m2 0221610663) VIRIDIANA (test code = VIRIDIANA) Association of Glomerular Filtration Rate (GFR) and Staging of Kidney Disease* + --+ --+ ------+| GFR (mL/min/1.73 m2) ?| With Kidney Damage ?| ?Without Kidney Damage+ --------+ --------+ +| ?>90 ?| ?Stage one ?| ? Normal ?+ ---+ ---+ -------+| ?60-89 ?| ?Stage two ?| ? Decreased GFR ? + --+ --+ ------+| ?30-59 ?| ?Stage three ?| ? Stage three ? + --+ --+ ------+| ?15-29 ?| ?Stage four ? | ? Stage four ?+ ---+ ---+ -------+| ?<15 (or dialysis) ? ?| ?Stage five ? | ? Stage five ?+ ---+ ---+ -------+ *Each stage assumes the associated GFR level has been in effect for at least three months. ?Stages 1 to 5, with or without kidney disease, indicate chronic kidney disease. Notes: Determination of stages one and two (with eGFR >59mL/min/1.73 m2) requires estimation of kidney damage for at least three months as defined by structural or functional abnormalities of the kidney, manifested by either:Pathological abnormalities or Markers of kidney damage (including abnormalities in the composition of the blood or urine or abnormalities in imaging tests). Lab Interpretation Abnormal (test code = 00477-6) [facility] [id number] 20:10:53 Test Item Value Reference Range Interpretation Comments PHOSPHORUS (test code = 0614983503) 3.7 mg/dL 2.5-5.0 Lab Interpretation (test code = Normal 38279-9) [facility] [id number] 20:10:53 Test Item Value Reference Range Interpretation Comments PHOSPHORUS (test code = 3396316913) 3.7 mg/dL 2.5-5.0 Lab Interpretation (test code = Normal 72178-2) [facility] (CK)2020-12-02 20:10:47 Test Item Value Reference Range Interpretation Comments CK (test code = 3539265804) 59 U/L 33-194 Lab Interpretation (test code = Normal 69718-6) [facility] (CK)2020-12-02 20:10:47 Test Item Value Reference Range Interpretation Comments CK (test code = 7986973986) 59 U/L 33-194 Lab Interpretation (test code = Normal 71707-9) [facility] with [id number] 20:10:42 Test Item Value Reference Range Interpretation Comments WBC (test code = See_Comment [Automated 2990-2) message] The sy stem which generated this result transmitted reference range : 4.50 - 13.50 10*3/?L. The reference range was not used to interpret this result as normal/abnormal . RBC (test code = See_Comment [Automated 789-8) message] The sy stem which generated this result transmitted reference range : 4.10 - 5.10 10*6/?L. The reference range was not used to interpret this result as normal/abnormal . HGB (test code = 11.8 g/dL 12.0-16.0 L 718-7) HCT (test code = 36.0 % 36.0-45.0 4544-3) MCV (test code = 87.2 fL 78.0-95.0 787-2) MCH (test code = 28.6 pg 26.0-32.0 785-6) MCHC (test code = 32.8 g/dL 32.0-36.0 786-4) RDW-SD (test code = 41.4 fL 38.5-49.0 17347-5) RDW-CV (test code = 13.2 % 11.5-14.0 788-0) PLT (test code = See_Comment L [Automated 777-3) message] The sy stem which generated this result transmitted reference range : 135 - 361 10*3/ ?L. The reference r lorene was not used to interpret this result as normal/abnormal . MPV (test code = 13.3 fL 9.4-13.3 62708-9) NRBC/100 WBC (test See_Comment [Automat ed code = 2489330814) message] The system which generated this result transmitted reference range : 0.0 - 10.0 /100 WBCs. The refer ence range was not u sed to interpret th is result as normal/abnormal . NRBC x10^3 (test code <0.01 See_Comment [Auto mated = [id number]) message] The s ystem which generated this result transmitted reference range : 10*3/?L. The reference range was not used to interpret this result as normal/abnormal . GRAN MAT (NEUT) % 48.7 % (test code = 770-8) IMM GRAN % (test code 0.40 % = 7547690920) LYMPH % (test code = 39.4 % 736-9) MONO % (test code = 8.9 % 5905-5) EOS % (test code = 2.2 % 713-8) BASO % (test code = 0.4 % 706-2) GRAN MAT x10^3(ANC) 2.67 10*3/uL 1.50-10.30 (test code = 3735101849) IMM GRAN x10^3 (test <0.03 0.00-0.06 code = 4493987997) LYMPH x10^3 (test code 2.16 10*3/uL 0.70-7.40 = 731-0) MONO x10^3 (test code 0.49 10*3/uL 0.00-0.50 = 742-7) EOS x10^3 (test code = 0.12 10*3/uL 0.00-0.40 711-2) BASO x10^3 (test code <0.03 0.00-0.10 = 704-7) Lab Interpretation Abnormal (test code = 88199-7) [facility] with [id number] 20:10:42 Test Item Value Reference Range Interpretation Comments WBC (test code = See_Comment [Automated 6690-2) message] The sy stem which generated this result transmitted reference range : 4.50 - 13.50 10*3/?L. The reference range was not used to interpret this result as normal/abnormal . RBC (test code = See_Comment [Automated 739-8) message] The sy stem which generated this result transmitted reference range : 4.10 - 5.10 10*6/?L. The reference range was not used to interpret this result as normal/abnormal . HGB (test code = 11.8 g/dL 12.0-16.0 L 718-7) HCT (test code = 36.0 % 36.0-45.0 4544-3) MCV (test code = 87.2 fL 78.0-95.0 787-2) MCH (test code = 28.6 pg 26.0-32.0 785-6) MCHC (test code = 32.8 g/dL 32.0-36.0 786-4) RDW-SD (test code = 41.4 fL 38.5-49.0 08055-8) RDW-CV (test code = 13.2 % 11.5-14.0 788-0) PLT (test code = See_Comment L [Automated 777-3) message] The sy stem which generated this result transmitted reference range : 135 - 361 10*3/ ?L. The reference r lorene was not used to interpret this result as normal/abnormal . MPV (test code = 13.3 fL 9.4-13.3 13226-7) NRBC/100 WBC (test See_Comment [Automat ed code = 7670092957) message] The system which generated this result transmitted reference range : 0.0 - 10.0 /100 WBCs. The refer ence range was not u sed to interpret th is result as normal/abnormal . NRBC x10^3 (test code <0.01 See_Comment [Auto mated = 6048874900) message] The s ystem which generated this result transmitted reference range : 10*3/?L. The reference range was not used to interpret this result as normal/abnormal . GRAN MAT (NEUT) % 48.7 % (test code = 770-8) IMM GRAN % (test code 0.40 % = 0315999785) LYMPH % (test code = 39.4 % 736-9) MONO % (test code = 8.9 % 5905-5) EOS % (test code = 2.2 % 713-8) BASO % (test code = 0.4 % 706-2) GRAN MAT x10^3(ANC) 2.67 10*3/uL 1.50-10.30 (test code = 3526013685) IMM GRAN x10^3 (test <0.03 0.00-0.06 code = 9157925340) LYMPH x10^3 (test code 2.16 10*3/uL 0.70-7.40 = 731-0) MONO x10^3 (test code 0.49 10*3/uL 0.00-0.50 = 742-7) EOS x10^3 (test code = 0.12 10*3/uL 0.00-0.40 711-2) BASO x10^3 (test code <0.03 0.00-0.10 = 704-7) Lab Interpretation Abnormal (test code = 18401-5) [facility] [id number] 16:37:32 Test Item Value Reference Range Interpretation Comments TSH (test code = See_Comment Biotin has been 7648239682) reported to cau se a negative bias, interpret resul ts relative to pat ient's use of biotin. [Automated mess age] The system TwitJ[employer] generated this result transmitted ref erence range: 0.45 - 4 .70 mIU/L. The refe rence range was not u sed to interpret this result as normal/abnor mal. Lab Interpretation (test Normal code = 81328-6) [facility] Rhzbkgr4913-09-39 16:37:32 Test Item Value Reference Range Interpretation Comments TSH (test code = See_Comment Biotin has been 2220673998) reported to cau se a negative bias, interpret resul ts relative to pat ient's use of biotin. [Automated mess age] The system TwitJ[employer] generated this result transmitted ref erence range: 0.45 - 4 .70 mIU/L. The refe rence range was not u sed to interpret this result as normal/abnor mal. Lab Interpretation (test Normal code = 15849-4) [facility] - COMPREHENSIVE DRUG SCREEN W/O [id number] 07:41:34 Test Item Value Reference Range Interpretation Comments AMPHET (test code = Negative Negative 3859522944) FABIO U (test code = Negative Negative 6377652635) BENZO U (test code = Negative Negative 1131283569) Cocaine Metabolite (test Negative Negative code = 3815566459) METHADONE (test code = Negative Negative 8878828438) OPIATES (test code = Negative Negative 5186021737) PCP (test code = Negative Negative 8208432302) THC (test code = Presumptive Positive Negative A 6297471289) VIRIDIANA (test code = VIRIDIANA) Urine Drug Cutoff Ranges Cocaine: ? 150 ng/mLBenzodiazepines: ? ? 200 ng/mLMethadone: ? 300 ng/mLAmphetamine: ? 1,000 ng/mLOpiates: ? 300 ng/mLCannabinoids: ?50 ng/mLPhencyclidine: ? ? ? 25 ng/mLBarbiturates: ?200 ng/mL The results are to be used only for medical (i.e., treatment) purposes. Unconfirmed screening results must not be used for non-medical purposes (e.g., employment testing, legal testing). Lab Interpretation (test Abnormal code = 11963-4) [facility] - COMPREHENSIVE DRUG SCREEN W/O [id number] 07:41:34 Test Item Value Reference Range Interpretation Comments AMPHET (test code = Negative Negative 1899513596) FABIO U (test code = Negative Negative 3228958800) BENZO U (test code = Negative Negative 9065132632) Cocaine Metabolite (test Negative Negative code = 9127913337) METHADONE (test code = Negative Negative 3535398227) OPIATES (test code = Negative Negative 7367353127) PCP (test code = Negative Negative 2494488748) THC (test code = Presumptive Positive Negative A 2694470310) VIRIDIANA (test code = VIRIDIANA) Urine Drug Cutoff Ranges Cocaine: ? 150 ng/mLBenzodiazepines: ? ? 200 ng/mLMethadone: ? 300 ng/mLAmphetamine: ? 1,000 ng/mLOpiates: ? 300 ng/mLCannabinoids: ?50 ng/mLPhencyclidine: ? ? ? 25 ng/mLBarbiturates: ?200 ng/mL The results are to be used only for medical (i.e., treatment) purposes. Unconfirmed screening results must not be used for non-medical purposes (e.g., employment testing, legal testing). Lab Interpretation (test Abnormal code = 07851-3) [facility] MET[facility]OLIC PANEL (25058)2020-12-02 07:38:37 Test Item Value Reference Range Interpretation Comments NA (test code = 138 mmol/L 135-145 4669427784) K (test code = 3.8 mmol/L 3.5-5.0 0462934106) CL (test code = 108 mmol/L 98-108 8386708559) CO2 TOTAL (test code = 23 mmol/L 23-31 8292936915) AGAP (test code = 2-16 2273218072) BUN (test code = 5 mg/dL 7-23 L 4735569004) GLUCOSE (test code = 93 mg/dL 70-110 5773256518) CREATININE (test code = 0.61 mg/dL 0.50-1.04 2745981211) TOTAL BILI (test code = 0.7 mg/dL 0.1-1.5 0622544468) CALCIUM (test code = 8.6 mg/dL 8.6-10.6 5701214892) T PROTEIN (test code = 6.5 g/dL 6.3-8.2 6630479081) ALBUMIN (test code = 3.9 g/dL 3.5-5.0 4605693439) ALK PHOS (test code = 56 U/L 34-122 2627109552) ALTv (test code = 15 U/L 5-35 2-6) AST(SGOT) (test code = 28 U/L 13-40 9314823129) eGFR (test code = mL/min/1.73m2 9102233167) VIRIDIANA (test code = VIRIDIANA) Association of Glomerular Filtration Rate (GFR) and Staging of Kidney Disease* + --+ --+ ------+| GFR (mL/min/1.73 m2) ?| With Kidney Damage ?| ?Without Kidney Damage+ --------+ --------+ +| ?>90 ?| ?Stage one ?| ? Normal ?+ ---+ ---+ -------+| ?60-89 ?| ?Stage two ?| ? Decreased GFR ? + --+ --+ ------+| ?30-59 ?| ?Stage three ?| ? Stage three ? + --+ --+ ------+| ?15-29 ?| ?Stage four ? | ? Stage four ?+ ---+ ---+ -------+| ?<15 (or dialysis) ? ?| ?Stage five ? | ? Stage five ?+ ---+ ---+ -------+ *Each stage assumes the associated GFR level has been in effect for at least three months. ?Stages 1 to 5, with or without kidney disease, indicate chronic kidney disease. Notes: Determination of stages one and two (with eGFR >59mL/min/1.73 m2) requires estimation of kidney damage for at least three months as defined by structural or functional abnormalities of the kidney, manifested by either:Pathological abnormalities or Markers of kidney damage (including abnormalities in the composition of the blood or urine or abnormalities in imaging tests). Lab Interpretation Abnormal (test code = 98654-5) [facility]. METABOLIC PANEL (87166)2020-12-02 07:38:37 Test Item Value Reference Range Interpretation Comments NA (test code = 138 mmol/L 135-145 2600519237) K (test code = 3.8 mmol/L 3.5-5.0 3181187553) CL (test code = 108 mmol/L 98-108 4735867229) CO2 TOTAL (test code = 23 mmol/L 23-31 9579791158) AGAP (test code = 2-16 6237934742) BUN (test code = 5 mg/dL 7-23 L 1760457556) GLUCOSE (test code = 93 mg/dL 70-110 0476272636) CREATININE (test code = 0.61 mg/dL 0.50-1.04 3481208838) TOTAL BILI (test code = 0.7 mg/dL 0.1-1.8 9446425179) CALCIUM (test code = 8.6 mg/dL 8.6-10.6 6204556502) T PROTEIN (test code = 6.5 g/dL 6.3-8.2 0883287056) ALBUMIN (test code = 3.9 g/dL 3.5-5.0 6723484582) ALK PHOS (test code = 56 U/L 34-122 5106112692) ALTv (test code = 15 U/L 5-35 1742-6) AST(SGOT) (test code = 28 U/L 13-40 6602713226) eGFR (test code = mL/min/1.73m2 4686939143) VIRIDIANA (test code = VIRIDIANA) Association of Glomerular Filtration Rate (GFR) and Staging of Kidney Disease* + --+ --+ ------+| GFR (mL/min/1.73 m2) ?| With Kidney Damage ?| ?Without Kidney Damage+ --------+ --------+ +| ?>90 ?| ?Stage one ?| ? Normal ?+ ---+ ---+ -------+| ?60-89 ?| ?Stage two ?| ? Decreased GFR ? + --+ --+ ------+| ?30-59 ?| ?Stage three ?| ? Stage three ? + --+ --+ ------+| ?15-29 ?| ?Stage four ? | ? Stage four ?+ ---+ ---+ -------+| ?<15 (or dialysis) ? ?| ?Stage five ? | ? Stage five ?+ ---+ ---+ -------+ *Each stage assumes the associated GFR level has been in effect for at least three months. ?Stages 1 to 5, with or without kidney disease, indicate chronic kidney disease. Notes: Determination of stages one and two (with eGFR >59mL/min/1.73 m2) requires estimation of kidney damage for at least three months as defined by structural or functional abnormalities of the kidney, manifested by either:Pathological abnormalities or Markers of kidney damage (including abnormalities in the composition of the blood or urine or abnormalities in imaging tests). Lab Interpretation Abnormal (test code = 51281-9) [facility] [id number] 07:38:17 Test Item Value Reference Range Interpretation Comments CK (test code = 9688438156) 62 U/L 33-194 Lab Interpretation (test code = Normal 25552-1) [facility] [id number] 07:38:17 Test Item Value Reference Range Interpretation Comments CK (test code = 5299230194) 62 U/L 33-194 Lab Interpretation (test code = Normal 49701-2) [facility]2021[facility]12 07:07:10 Test Item Value Reference Range Interpretation Comments APPEARANCE (test code = Cloudy Clear A 0129336454) COLOR (test code = Yellow Yellow 5558473921) PH (test code = 4.8-8.0 1298169360) SP GRAVITY (test code = 1.003-1.030 3264814074) GLU U QUAL (test code = Normal Normal 1260642602) BLOOD (test code = Negative Negative 1730313867) KETONES (test code = 5 mg/dL Negative A 5331025605) PROTEIN (test code = 100 mg/dL Negative A 2887-8) UROBILIN (test code = 2.0 mg/dL Normal A 3828210102) BILIRUBIN (test code = Negative Negative 5461339612) NITRITE (test code = Negative Negative 1477535748) LEUK DENNIS (test code = 500/uL Negative A 6358580937) RBC/HPF (test code = See_Comment [Autom ated message] 5648138407) The system TwitJ[employer] generated this result transmit carole reference range : 0 - 3 HPF. The refe rence range was not u sed to interpret th is result as normal/abnormal . WBC/HPF (test code = See_Comment H [Autom ated message] 9353385763) The system [employer] generated this result transmit carole reference range : 0 - 5 HPF. The refe rence range was not u sed to interpret th is result as normal/abnormal . BACTERIA (test code = Many Negative A 4109606368) MUCOUS (test code = Moderate Negative LPF A 2298615008) SQ EPITH (test code = HPF 8792457702) CA OXALATE (test code = See_Comment [Au tomated message] 0423235457) The system [employer] generated this result transmit carole reference range : <=1 HPF. The refere nce range was not u sed to interpret th is result as normal/abnormal . HYAL CAST (test code = See_Comment H [Aut omated message] 1162375711) The system [employer] generated this result transmit carole reference range : <=2 LPF. The refere nce range was not u sed to interpret th is result as normal/abnormal . Lab Interpretation (test Abnormal code = 53453-7) [facility] 07:07:10 Test Item Value Reference Range Interpretation Comments APPEARANCE (test code = Cloudy Clear A 1597159373) COLOR (test code = Yellow Yellow 6458568254) PH (test code = 4.8-8.0 3774303136) SP GRAVITY (test code = 1.003-1.030 6257047058) GLU U QUAL (test code = Normal Normal 4270386717) BLOOD (test code = Negative Negative 8997887500) KETONES (test code = 5 mg/dL Negative A 1837228819) PROTEIN (test code = 100 mg/dL Negative A 2887-8) UROBILIN (test code = 2.0 mg/dL Normal A 9882786019) BILIRUBIN (test code = Negative Negative 1739723836) NITRITE (test code = Negative Negative 2408036523) LEUK DENNIS (test code = 500/uL Negative A 4820892235) RBC/HPF (test code = See_Comment [Autom ated message] 8891021856) The system [employer] generated this result transmit carole reference range : 0 - 3 HPF. The refe rence range was not u sed to interpret th is result as normal/abnormal . WBC/HPF (test code = See_Comment H [Autom ated message] 0484769226) The system [employer] generated this result transmit carole reference range : 0 - 5 HPF. The refe rence range was not u sed to interpret th is result as normal/abnormal . BACTERIA (test code = Many Negative A 8785314598) MUCOUS (test code = Moderate Negative LPF A 3908622622) SQ EPITH (test code = HPF 5540271189) CA OXALATE (test code = See_Comment [Au tomated message] 3737012037) The system TwitJ[employer] generated this result transmit carole reference range : <=1 HPF. The refere nce range was not u sed to interpret th is result as normal/abnormal . HYAL CAST (test code = See_Comment H [Aut omated message] 0132004601) The system TwitJ[employer] generated this result transmit carole reference range : <=2 LPF. The refere nce range was not u sed to interpret th is result as normal/abnormal . Lab Interpretation (test Abnormal code = 44918-5) [facility] NOW RAPID TESTING)2020-12-02 06:56:19 Test Item Value Reference Range Interpretation Comments SARS-CoV-2 Rapid ID NOW Not Detected Not Detected (test code = 61770-3) VIRIDIANA (test code = VIRIDIANA) ID NOW COVID-19 Assay is an isothermal nucleic acid amplification test intended for the qualitative detection of nucleic acid from SARS-CoV-2 viral RNA in nasopharyngeal (RECREATION ESTABLISHMENT MANAGER) specimens. It is used under Emergency Use Authorization (EUA) by FDA. The limit of detection (LOD) of the assay is 125 Genome Equivalents/mL. A positive result is indicative of the presence of SARS-CoV-2 RNA. ?Clinical correlation with patient history and other diagnostic information is necessary to determine patient infection status. A negative (Not Detected) result does not preclude SARS-CoV-2 infection. In patients with a high suspicion of SARS-CoV-2 infection, negative results should be treated as presumptive negative and a new specimen should be tested with alternative nucleic acid amplification molecular test. Invalid: Please collect a new specimen for repeat patient testing if clinically indicated. Lab Interpretation Normal (test code = 80638-0) [facility]ID [facility]2020-12-02 06:56:19 Test Item Value Reference Range Interpretation Comments SARS-CoV-2 Rapid ID NOW Not Detected Not Detected (test code = 57007-7) VIRIDIANA (test code = VIRIDIANA) ID NOW COVID-19 Assay is an isothermal nucleic acid amplification test intended for the qualitative detection of nucleic acid from SARS-CoV-2 viral RNA in nasopharyngeal (RECREATION ESTABLISHMENT MANAGER) specimens. It is used under Emergency Use Authorization (EUA) by FDA. The limit of detection (LOD) of the assay is 125 Genome Equivalents/mL. A positive result is indicative of the presence of SARS-CoV-2 RNA. ?Clinical correlation with patient history and other diagnostic information is necessary to determine patient infection status. A negative (Not Detected) result does not preclude SARS-CoV-2 infection. In patients with a high suspicion of SARS-CoV-2 infection, negative results should be treated as presumptive negative and a new specimen should be tested with alternative nucleic acid amplification molecular test. Invalid: Please collect a new specimen for repeat patient testing if clinically indicated. Lab Interpretation Normal (test code = 52528-6) [facility] WITH [id number] 06:42:15 Test Item Value Reference Range Interpretation Comments WBC (test code = See_Comment [Automated message] 6790-2) The system [employer]itJ[employer] generated this result transmitted ref erence range: 4.50 - 1 3.50 10*3/?L. The re ference range was not u sed to interpret this result as normal/abnor mal. RBC (test code = See_Comment [Automated message] 539-8) The system [employer]it[employer] generated this result transmitted ref erence range: 4.10 - 5 .10 10*6/?L. The re ference range was not u sed to interpret this result as normal/abnor mal. HGB (test code = 12.8 g/dL 12.0-16.0 718-7) HCT (test code = 38.7 % 36.0-45.0 4544-3) MCV (test code = 85.2 fL 78.0-95.0 787-2) MCH (test code = 28.2 pg 26.0-32.0 785-6) MCHC (test code = 33.1 g/dL 32.0-36.0 786-4) RDW-SD (test code 40.5 fL 38.5-49.0 = 28545-1) RDW-CV (test code 13.1 % 11.5-14.0 = 788-0) PLT (test code = See_Comment [Automated message] 777-3) The system whic h generated this result transmitted ref erence range: 135 - 36 1 10*3/?L. The re ference range was not u sed to interpret this result as normal/abnor mal. MPV (test code = 12.9 fL 9.4-13.3 01809-8) NRBC/100 WBC (test See_Comment [Automat ed message] code = 0731407336) The syste m which generated this result transmitted ref erence range: 0.0 - 10 .0 /100 WBCs. The refer ence range was not u sed to interpret this result as normal/abnor mal. NRBC x10^3 (test <0.01 See_Comment [Automated message] code = 4204385129) The syste m which generated this result transmitted ref erence range: 10*3/?L. The reference range was not used to interpr et this result as normal/abnormal . GRAN MAT (NEUT) % 63.7 % (test code = 770-8) IMM GRAN % (test 0.40 % code = 4694178732) LYMPH % (test code 27.4 % = 736-9) MONO % (test code 7.2 % = 5905-5) EOS % (test code = 1.0 % 713-8) BASO % (test code 0.3 % = 706-2) GRAN MAT 4.40 10*3/uL 1.50-10.30 x10^3(ANC) (test code = 4067998667) IMM GRAN x10^3 0.03 10*3/uL 0.00-0.06 (test code = 2458486532) LYMPH x10^3 (test 1.89 10*3/uL 0.70-7.40 code = 731-0) MONO x10^3 (test 0.50 10*3/uL 0.00-0.50 code = 742-7) EOS x10^3 (test 0.07 10*3/uL 0.00-0.40 code = 711-2) BASO x10^3 (test <0.03 0.00-0.10 code = 704-7) [facility] WITH [id number] 06:42:15 Test Item Value Reference Range Interpretation Comments WBC (test code = See_Comment [Automated message] 1890-2) The system [employer] generated this result transmitted ref erence range: 4.50 - 1 3.50 10*3/?L. The re ference range was not u sed to interpret this result as normal/abnor mal. RBC (test code = See_Comment [Automated message] 809-8) The system [employer] generated this result transmitted ref erence range: 4.10 - 5 .10 10*6/?L. The re ference range was not u sed to interpret this result as normal/abnor mal. HGB (test code = 12.8 g/dL 12.0-16.0 718-7) HCT (test code = 38.7 % 36.0-45.0 4544-3) MCV (test code = 85.2 fL 78.0-95.0 787-2) MCH (test code = 28.2 pg 26.0-32.0 785-6) MCHC (test code = 33.1 g/dL 32.0-36.0 786-4) RDW-SD (test code 40.5 fL 38.5-49.0 = 75498-9) RDW-CV (test code 13.1 % 11.5-14.0 = 788-0) PLT (test code = See_Comment [Automated message] 777-3) The system [employer] generated this result transmitted ref erence range: 135 - 36 1 10*3/?L. The re ference range was not u sed to interpret this result as normal/abnor mal. MPV (test code = 12.9 fL 9.4-13.3 61940-1) NRBC/100 WBC (test See_Comment [Automat ed message] code = 3220141317) The syste m which generated this result transmitted ref erence range: 0.0 - 10 .0 /100 WBCs. The refer ence range was not u sed to interpret this result as normal/abnor mal. NRBC x10^3 (test <0.01 See_Comment [Automated message] code = 0168925904) The syste m which generated this result transmitted ref erence range: 10*3/?L. The reference range was not used to interpr et this result as normal/abnormal . GRAN MAT (NEUT) % 63.7 % (test code = 770-8) IMM GRAN % (test 0.40 % code = 6168323567) LYMPH % (test code 27.4 % = 736-9) MONO % (test code 7.2 % = 5905-5) EOS % (test code = 1.0 % 713-8) BASO % (test code 0.3 % = 706-2) GRAN MAT 4.40 10*3/uL 1.50-10.30 x10^3(ANC) (test code = 5725595780) IMM GRAN x10^3 0.03 10*3/uL 0.00-0.06 (test code = 6864730925) LYMPH x10^3 (test 1.89 10*3/uL 0.70-7.40 code = 731-0) MONO x10^3 (test 0.50 10*3/uL 0.00-0.50 code = 742-7) EOS x10^3 (test 0.07 10*3/uL 0.00-0.40 code = 711-2) BASO x10^3 (test <0.03 0.00-0.10 code = 704-7) [facility] [id number] 06:36:00 Test Item Value Reference Range Interpretation Comments POCT PREG (test code = 1605) neg On board controls acceptable with yes C Line (test code = 3574) POCT PREG LOT # (test code = [id number]) POCT PREG TEST DATE (test code = 3576) Lab Interpretation (test code = Normal 72229-0) [facility] [id number] 06:36:00 Test Item Value Reference Range Interpretation Comments POCT PREG (test code = 1605) neg On board controls acceptable with yes C Line (test code = 3574) POCT PREG LOT # (test code = [id number]) POCT PREG TEST DATE (test code = 3576) Lab Interpretation (test code = Normal 21728-8) [facility] [id number] 06:31:07 Test Item Value Reference Range Interpretation Comments LACTIC ACID (test code = 2.66 mmol/L 0.50-2.20 H 8561199028) Lab Interpretation (test code = Abnormal 95379-9) [facility] Whole [id number] 06:31:07 Test Item Value Reference Range Interpretation Comments LACTIC ACID (test code = 2.66 mmol/L 0.50-2.20 H 1514299313) Lab Interpretation (test code = Abnormal 38313-2) [facility] [id number] 08:22:54 Test Item Value Reference Range Interpretation Comments CK (test code = 5600044718) 101 U/L 33-194 Lab Interpretation (test code = Normal 29167-0) [facility] [id number] 08:22:54 Test Item Value Reference Range Interpretation Comments CK (test code = 6938112032) 101 U/L 33-194 Lab Interpretation (test code = Normal 80697-7) [facility] HEAD WO [id number] 07:07:23 Impression: No CT evidence for acute intracranial abnormality. RL: 460 AFC: [id number] Ordering physician: CHAUNCEY SMITH Indication: Altered level of awareness Comparison: None Technique: Axial images of the head were performed without administrationof intravenous contrast material. CT scan was performed according to ALARA(as low as reasonably achievable) principles. Findings: No acute intracranial abnormality is appreciated. Specifically,there is no acute intracranial hemorrhage, mass, mass effect, extra-axialfluid collection or hydrocephalus. The visualized paranasal sinuses areclear. No middle ear or mastoid effusion is appreciated. There is nocalvarial fracture. [facility], Radiant Results Inft User - 11/30/2020 2:08 AM CDT Ordering physician: CHANUCEY SMITHIndication: Altered level of awarenessComparison: NoneTechnique: Axial images of the head were performed without administrationof intravenous contrast material. CT scan was performed according to ALARA(as low as reasonably achievable) principles.Findings: No acute intracranial abnormality is appreciated. Specific ally,there is no acute intracranial hemorrhage, mass, mass effect, extra- axialfluid collection or hydrocephalus. The visualized paranasal sinuses areclear. No middle ear or mastoid effusion is appreciated. There is nocalvarial fracture.IMPRESSIONImpression:No CT evidence for acute intracranial abnormal ity.RL: 460AFC: [id number] signed by Pooja Rowland MD, PhD at 11/30/2020 2:07 AMUnMet[facility] HospitalCT HEAD WO [id number] 07:07:23Impression: No CT evidence for acute intracranial abnormality. RL: 460 AFC: [id number] Ordering physician: CHAUNCEY SIMTH Indication: Altered level of awareness Comparison: None Technique: Axial images of the head were performed without administrationof intravenous contrast material. CT scan was performed according to ALARA(as low as reasonably achievable) principles. Findings: No acute intracranial abnormality is appreciated. Specifically,there is no acute intracranial hemorrhage, mass, mass effect, extra-axialfluid collection or hydrocephalus. The visualized paranasal sinuses areclear. No middle ear or mastoid effusion is appreciated. There is nocalvarial fracture. [facility], Radiant Results Inft User - 11/30/2020 2:08 AM CDT Ordering physician: CHAUNCEY SMITHIndication: Altered level of awarenessComparison: NoneTechnique: Axial images of the head were performed without administrationof intravenous contrast material. CT scan was performed according to ALARA(as low as reasonably achievable) principles.Findings: No acute intracranial abnormality is appreciated. Specific ally,there is no acute intracranial hemorrhage, mass, mass effect, extra- axialfluid collection or hydrocephalus. The visualized paranasal sinuses areclear. No middle ear or mastoid effusion is appreciated. There is nocalvarial fracture.IMPRESSIONImpression:No CT evidence for acute intracranial abnormal ity.RL: 460AFC: [id number] signed by Pooja Rowland MD, PhD at 11/30/2020 2:07 AMUnMetropolitan Methodist HospitalDRUG SCREEN PANEL 2 URINE 2020-11-30 05:54:09 Test Item Value Reference Range Interpretation Comments AMPHET (test code = Negative Negative 8260611116) FABIO U (test code = Negative Negative 0012106437) BENZO U (test code = Presumptive Positive Negative A 1758505653) Cocaine Metabolite (test Negative Negative code = 4933058487) METHADONE (test code = Negative Negative 2287323011) OPIATES (test code = Negative Negative 5971935204) PCP (test code = Negative Negative 9448590838) THC (test code = Presumptive Positive Negative A 6435845871) VIRIDIANA (test code = VIRIDIANA) Urine Drug Cutoff Ranges Cocaine: ? 150 ng/mLBenzodiazepines: ? ? 200 ng/mLMethadone: ? 300 ng/mLAmphetamine: ? 1,000 ng/mLOpiates: ? 300 ng/mLCannabinoids: ?50 ng/mLPhencyclidine: ? ? ? 25 ng/mLBarbiturates: ?200 ng/mL The results are to be used only for medical (i.e., treatment) purposes. Unconfirmed screening results must not be used for non-medical purposes (e.g., employment testing, legal testing). Lab Interpretation (test Abnormal code = 83796-9) [facility] [id number] 05:54:09 Test Item Value Reference Range Interpretation Comments AMPHET (test code = Negative Negative 3922088887) FABIO U (test code = Negative Negative 9876323147) BENZO U (test code = Presumptive Positive Negative A 6262335019) Cocaine Metabolite (test Negative Negative code = 3986721520) METHADONE (test code = Negative Negative 9829169339) OPIATES (test code = Negative Negative 4133885670) PCP (test code = Negative Negative 2304511910) THC (test code = Presumptive Positive Negative A 9362198074) VIRIDIANA (test code = VIRIDIANA) Urine Drug Cutoff Ranges Cocaine: ? 150 ng/mLBenzodiazepines: ? ? 200 ng/mLMethadone: ? 300 ng/mLAmphetamine: ? 1,000 ng/mLOpiates: ? 300 ng/mLCannabinoids: ?50 ng/mLPhencyclidine: ? ? ? 25 ng/mLBarbiturates: ?200 ng/mL The results are to be used only for medical (i.e., treatment) purposes. Unconfirmed screening results must not be used for non-medical purposes (e.g., employment testing, legal testing). Lab Interpretation (test Abnormal code = 11652-1) [facility]-19 (ID NOW RAPID TESTING)2020-11-30 05:49:31 Test Item Value Reference Range Interpretation Comments SARS-CoV-2 Rapid ID NOW Not Detected Not Detected (test code = 08142-7) VIRIDIANA (test code = VIRIDIANA) ID NOW COVID-19 Assay is an isothermal nucleic acid amplification test intended for the qualitative detection of nucleic acid from SARS-CoV-2 viral RNA in nasopharyngeal (RECREATION ESTABLISHMENT MANAGER) specimens. It is used under Emergency Use Authorization (EUA) by FDA. The limit of detection (LOD) of the assay is 125 Genome Equivalents/mL. A positive result is indicative of the presence of SARS-CoV-2 RNA. ?Clinical correlation with patient history and other diagnostic information is necessary to determine patient infection status. A negative (Not Detected) result does not preclude SARS-CoV-2 infection. In patients with a high suspicion of SARS-CoV-2 infection, negative results should be treated as presumptive negative and a new specimen should be tested with alternative nucleic acid amplification molecular test. Invalid: Please collect a new specimen for repeat patient testing if clinically indicated. Lab Interpretation Normal (test code = 12978-3) [facility]-19 (ID NOW RAPID TESTING)2020-11-30 05:49:31 Test Item Value Reference Range Interpretation Comments SARS-CoV-2 Rapid ID NOW Not Detected Not Detected (test code = 99012-0) VIRIDIANA (test code = VIRIDIANA) ID NOW COVID-19 Assay is an isothermal nucleic acid amplification test intended for the qualitative detection of nucleic acid from SARS-CoV-2 viral RNA in nasopharyngeal (RECREATION ESTABLISHMENT MANAGER) specimens. It is used under Emergency Use Authorization (EUA) by FDA. The limit of detection (LOD) of the assay is 125 Genome Equivalents/mL. A positive result is indicative of the presence of SARS-CoV-2 RNA. ?Clinical correlation with patient history and other diagnostic information is necessary to determine patient infection status. A negative (Not Detected) result does not preclude SARS-CoV-2 infection. In patients with a high suspicion of SARS-CoV-2 infection, negative results should be treated as presumptive negative and a new specimen should be tested with alternative nucleic acid amplification molecular test. Invalid: Please collect a new specimen for repeat patient testing if clinically indicated. Lab Interpretation Normal (test code = 89061-2) [facility] 05:49:21 Test Item Value Reference Range Interpretation Comments APPEARANCE (test code = Hazy Clear A 1130947542) COLOR (test code = Lazara Yellow A 2912021602) PH (test code = 4.8-8.0 8838572867) SP GRAVITY (test code = 1.003-1.030 0825209099) GLU U QUAL (test code = Normal Normal 7592893941) BLOOD (test code = Negative Negative Interfere nce from 4419096650) ascorbic acid m ay cause false neg ative results. KETONES (test code = 20 mg/dL Negative A 4847670944) PROTEIN (test code = 30 mg/dL Negative A 2887-8) UROBILIN (test code = 4.0 mg/dL Normal A 9910935646) BILIRUBIN (test code = Negative Negative 4039167593) NITRITE (test code = Negative Negative 6097186455) LEUK DENNIS (test code = 500/uL Negative A 9533365584) RBC/HPF (test code = See_Comment H [Autom ated message] 2590478058) The system [employer]it[employer]ump generated this result transmitted ref erence range: 0 - 3 HP F. The reference range was not used to int erpret this result as normal/abnormal . WBC/HPF (test code = See_Comment H [Autom ated message] 2022638967) The system [employer] generated this result transmitted ref erence range: 0 - 5 HP F. The reference range was not used to int erpret this result as normal/abnormal . BACTERIA (test code = Few Negative A 9612476777) MUCOUS (test code = Slight Negative LPF A 9912674705) SQ EPITH (test code = HPF 7815092319) Lab Interpretation Abnormal (test code = 18417-2) [facility] 05:49:21 Test Item Value Reference Range Interpretation Comments APPEARANCE (test code = Hazy Clear A 9329287857) COLOR (test code = Lazara Yellow A 9613195592) PH (test code = 4.8-8.0 9612649349) SP GRAVITY (test code = 1.003-1.030 4895387600) GLU U QUAL (test code = Normal Normal 5040616298) BLOOD (test code = Negative Negative Interfere nce from 9389245995) ascorbic acid m ay cause false neg ative results. KETONES (test code = 20 mg/dL Negative A 4652857582) PROTEIN (test code = 30 mg/dL Negative A 2887-8) UROBILIN (test code = 4.0 mg/dL Normal A 7900476614) BILIRUBIN (test code = Negative Negative 8886589278) NITRITE (test code = Negative Negative 8503957660) LEUK DENNIS (test code = 500/uL Negative A 7574134032) RBC/HPF (test code = See_Comment H [Autom ated message] 5932541218) The system [employer] generated this result transmitted ref erence range: 0 - 3 HP F. The reference range was not used to int erpret this result as normal/abnormal . WBC/HPF (test code = See_Comment H [Autom ated message] 7676901512) The system [employer] generated this result transmitted ref erence range: 0 - 5 HP F. The reference range was not used to int erpret this result as normal/abnormal . BACTERIA (test code = Few Negative A 8783093308) MUCOUS (test code = Slight Negative LPF A 5804423304) SQ EPITH (test code = HPF 6573073417) Lab Interpretation Abnormal (test code = 21492-6) [facility] 05:47:51 Test Item Value Reference Range Interpretation Comments MAGNESIUM (test code = 8278144490) 2.1 mg/dL 1.7-2.4 Lab Interpretation (test code = Normal 01673-8) [facility]10 05:47:51 Test Item Value Reference Range Interpretation Comments MAGNESIUM (test code = 7683939704) 2.1 mg/dL 1.7-2.4 Lab Interpretation (test code = Normal 75611-9) [facility] METABOLIC PANEL (39718)2020-11-30 05:47:35 Test Item Value Reference Range Interpretation Comments NA (test code = 139 mmol/L 135-145 7581514890) K (test code = 3.4 mmol/L 3.5-5.0 L 8998709690) CL (test code = 105 mmol/L 98-108 8455239286) CO2 TOTAL (test code = 24 mmol/L 23-31 0492326470) AGAP (test code = 2-16 5957273732) BUN (test code = 8 mg/dL 7-23 3420617700) GLUCOSE (test code = 84 mg/dL 70-110 3279964413) CREATININE (test code = 0.70 mg/dL 0.50-1.04 5887183004) TOTAL BILI (test code = 0.6 mg/dL 0.1-1.2 4822858769) CALCIUM (test code = 9.3 mg/dL 8.6-10.6 9930103762) T PROTEIN (test code = 7.7 g/dL 6.3-8.2 4506566606) ALBUMIN (test code = 4.6 g/dL 3.5-5.0 2384523227) ALK PHOS (test code = 76 U/L 34-122 9682934151) ALTv (test code = 19 U/L 5-35 1742-6) AST(SGOT) (test code = 25 U/L 13-40 4723296123) eGFR (test code = mL/min/1.73m2 8619188758) VIRIDIANA (test code = VIRIDIANA) Association of Glomerular Filtration Rate (GFR) and Staging of Kidney Disease* + --+ --+ ------+| GFR (mL/min/1.73 m2) ?| With Kidney Damage ?| ?Without Kidney Damage+ --------+ --------+ +| ?>90 ?| ?Stage one ?| ? Normal ?+ ---+ ---+ -------+| ?60-89 ?| ?Stage two ?| ? Decreased GFR ? + --+ --+ ------+| ?30-59 ?| ?Stage three ?| ? Stage three ? + --+ --+ ------+| ?15-29 ?| ?Stage four ? | ? Stage four ?+ ---+ ---+ -------+| ?<15 (or dialysis) ? ?| ?Stage five ? | ? Stage five ?+ ---+ ---+ -------+ *Each stage assumes the associated GFR level has been in effect for at least three months. ?Stages 1 to 5, with or without kidney disease, indicate chronic kidney disease. Notes: Determination of stages one and two (with eGFR >59mL/min/1.73 m2) requires estimation of kidney damage for at least three months as defined by structural or functional abnormalities of the kidney, manifested by either:Pathological abnormalities or Markers of kidney damage (including abnormalities in the composition of the blood or urine or abnormalities in imaging tests). Lab Interpretation Abnormal (test code = 69244-2) [facility]. METABOLIC PANEL (74441)2020-11-30 05:47:35 Test Item Value Reference Range Interpretation Comments NA (test code = 139 mmol/L 135-145 8465745983) K (test code = 3.4 mmol/L 3.5-5.0 L 7046817335) CL (test code = 105 mmol/L 98-108 8181865993) CO2 TOTAL (test code = 24 mmol/L 23-31 0815837488) AGAP (test code = 2-16 3355303805) BUN (test code = 8 mg/dL 7-23 4703600080) GLUCOSE (test code = 84 mg/dL 70-110 4683987880) CREATININE (test code = 0.70 mg/dL 0.50-1.04 9012504787) TOTAL BILI (test code = 0.6 mg/dL 0.1-1.8 7141883830) CALCIUM (test code = 9.3 mg/dL 8.6-10.6 5050214493) T PROTEIN (test code = 7.7 g/dL 6.3-8.2 5270014981) ALBUMIN (test code = 4.6 g/dL 3.5-5.0 2773890897) ALK PHOS (test code = 76 U/L 34-122 2369724576) ALTv (test code = 19 U/L 5-35 1742-6) AST(SGOT) (test code = 25 U/L 13-40 2899351280) eGFR (test code = mL/min/1.73m2 7383636410) VIRIDIANA (test code = VIRIDIANA) Association of Glomerular Filtration Rate (GFR) and Staging of Kidney Disease* + --+ --+ ------+| GFR (mL/min/1.73 m2) ?| With Kidney Damage ?| ?Without Kidney Damage+ --------+ --------+ +| ?>90 ?| ?Stage one ?| ? Normal ?+ ---+ ---+ -------+| ?60-89 ?| ?Stage two ?| ? Decreased GFR ? + --+ --+ ------+| ?30-59 ?| ?Stage three ?| ? Stage three ? + --+ --+ ------+| ?15-29 ?| ?Stage four ? | ? Stage four ?+ ---+ ---+ -------+| ?<15 (or dialysis) ? ?| ?Stage five ? | ? Stage five ?+ ---+ ---+ -------+ *Each stage assumes the associated GFR level has been in effect for at least three months. ?Stages 1 to 5, with or without kidney disease, indicate chronic kidney disease. Notes: Determination of stages one and two (with eGFR >59mL/min/1.73 m2) requires estimation of kidney damage for at least three months as defined by structural or functional abnormalities of the kidney, manifested by either:Pathological abnormalities or Markers of kidney damage (including abnormalities in the composition of the blood or urine or abnormalities in imaging tests). Lab Interpretation Abnormal (test code = 90131-2) [facility]2020-11-30 05:45:23 Test Item Value Reference Range Interpretation Comments POCT GLU (test code = 0480620191) 83 mg/dL 70-110 Lab Interpretation (test code = Normal 48530-0) [facility]2020-11-30 05:45:23 Test Item Value Reference Range Interpretation Comments POCT GLU (test code = 7549037637) 83 mg/dL 70-110 Lab Interpretation (test code = Normal 22315-3) [facility] + LACTIC [id number] 05:35:20 Test Item Value Reference Range Interpretation Comments PH (test code = 2) 7.35-7.45 PCO2 (test code = See_Comment [Automat ed 1731033057) message] The sy stem which generated this result transmitted reference range : 35 - 45 mmHg. The reference range was not used to interpret this result as normal/abnormal . PO2 (test code = See_Comment H [Automated 8892738425) message] The sy stem which generated this result transmitted reference range : 80 - 100 mmHg. The reference range was not used to interpret this result as normal/abnormal . HCO3 (test code = See_Comment [Automate d 4354542044) message] The sy stem which generated this result transmitted reference range : 22 - 26 mEq/L. The reference range was not used to interpret this result as normal/abnormal . BE (test code = See_Comment [Automated 2089830565) message] The sy stem which generated this result transmitted reference range : -3.0 - 3.0 mEq/ L. The reference r lorene was not used to interpret this result as normal/abnormal . THB (test code = 13.4 g/dL 12.0-16.0 1833162798) %O2HB (test code = 98.5 % 94.0-99.0 2546071187) %COHB ART (test code = 0.0 % 0.0-1.5 0290865843) %METHB ART (test code = 0.3 % 0.4-1.5 L 0366532950) VOL%O2 ART (test code = 18.8 % 15.0-23.0 8897355385) NA (test code = 137 mmol/L 135-145 9308352675) K+ (test code = 3.5 mmol/L 3.5-5.0 7127090977) AC CA IONZ (test code = 4.60 mg/dL 4.50-5.30 3760914846) GLUCOSE (test code = 81 mg/dL 70-110 8491648418) LACTIC ACID (test code 0.87 mmol/L 0.50-2.20 = 0334045569) Lab Interpretation Abnormal (test code = 68663-6) [facility] + LACTIC [id number] 05:35:20 Test Item Value Reference Range Interpretation Comments PH (test code = 2) 7.35-7.45 PCO2 (test code = See_Comment [Automat ed 5611545080) message] The sy stem which generated this result transmitted reference range : 35 - 45 mmHg. The reference range was not used to interpret this result as normal/abnormal . PO2 (test code = See_Comment H [Automated 6940395811) message] The sy stem which generated this result transmitted reference range : 80 - 100 mmHg. The reference range was not used to interpret this result as normal/abnormal . HCO3 (test code = See_Comment [Automate d 4153269604) message] The sy stem which generated this result transmitted reference range : 22 - 26 mEq/L. The reference range was not used to interpret this result as normal/abnormal . BE (test code = See_Comment [Automated 1237096380) message] The sy stem which generated this result transmitted reference range : -3.0 - 3.0 mEq/ L. The reference r lorene was not used to interpret this result as normal/abnormal . THB (test code = 13.4 g/dL 12.0-16.0 2856899384) %O2HB (test code = 98.5 % 94.0-99.0 0298347986) %COHB ART (test code = 0.0 % 0.0-1.5 7713632986) %METHB ART (test code = 0.3 % 0.4-1.5 L 5329897794) VOL%O2 ART (test code = 18.8 % 15.0-23.0 4572749638) NA (test code = 137 mmol/L 135-145 8363943639) K+ (test code = 3.5 mmol/L 3.5-5.0 3119736361) AC CA IONZ (test code = 4.60 mg/dL 4.50-5.30 6181959743) GLUCOSE (test code = 81 mg/dL 70-110 5742046065) LACTIC ACID (test code 0.87 mmol/L 0.50-2.20 = 5615682797) Lab Interpretation Abnormal (test code = 57910-3) [facility] WITH [id number] 05:33:34 Test Item Value Reference Range Interpretation Comments WBC (test code = See_Comment [Automated 4790-2) message] The sy stem which generated this result transmitted reference range : 4.50 - 13.50 10*3/?L. The reference range was not used to interpret this result as normal/abnormal . RBC (test code = See_Comment [Automated 789-8) message] The sy stem which generated this result transmitted reference range : 4.10 - 5.10 10*6/?L. The reference range was not used to interpret this result as normal/abnormal . HGB (test code = 13.6 g/dL 12.0-16.0 718-7) HCT (test code = 40.8 % 36.0-45.0 4544-3) MCV (test code = 86.3 fL 78.0-95.0 787-2) MCH (test code = 28.8 pg 26.0-32.0 785-6) MCHC (test code = 33.3 g/dL 32.0-36.0 786-4) RDW-SD (test code = 41.1 fL 38.5-49.0 54384-5) RDW-CV (test code = 13.2 % 11.5-14.0 788-0) PLT (test code = See_Comment [Automated 777-3) message] The sy stem which generated this result transmitted reference range : 135 - 361 10*3/ ?L. The reference r lorene was not used to interpret this result as normal/abnormal . MPV (test code = 12.5 fL 9.4-13.3 04842-3) NRBC/100 WBC (test See_Comment [Automat ed code = 1844944738) message] The system which generated this result transmitted reference range : 0.0 - 10.0 /100 WBCs. The refer ence range was not u sed to interpret th is result as normal/abnormal . NRBC x10^3 (test code <0.01 See_Comment [Auto mated = 2990385632) message] The s ystem which generated this result transmitted reference range : 10*3/?L. The reference range was not used to interpret this result as normal/abnormal . GRAN MAT (NEUT) % 59.1 % (test code = 770-8) IMM GRAN % (test code 0.40 % = 8113936872) LYMPH % (test code = 31.7 % 736-9) MONO % (test code = 7.0 % 5905-5) EOS % (test code = 1.3 % 713-8) BASO % (test code = 0.5 % 706-2) GRAN MAT x10^3(ANC) 4.58 10*3/uL 1.50-10.30 (test code = 6985891898) IMM GRAN x10^3 (test 0.03 10*3/uL 0.00-0.06 code = 3072176528) LYMPH x10^3 (test code 2.45 10*3/uL 0.70-7.40 = 731-0) MONO x10^3 (test code 0.54 10*3/uL 0.00-0.50 H = 742-7) EOS x10^3 (test code = 0.10 10*3/uL 0.00-0.40 711-2) BASO x10^3 (test code 0.04 10*3/uL 0.00-0.10 = 704-7) Lab Interpretation Abnormal (test code = 58247-7) [facility] WITH [id number] 05:33:34 Test Item Value Reference Range Interpretation Comments WBC (test code = See_Comment [Automated 4044-2) message] The sy stem which generated this result transmitted reference range : 4.50 - 13.50 10*3/?L. The reference range was not used to interpret this result as normal/abnormal . RBC (test code = See_Comment [Automated 880-8) message] The sy stem which generated this result transmitted reference range : 4.10 - 5.10 10*6/?L. The reference range was not used to interpret this result as normal/abnormal . HGB (test code = 13.6 g/dL 12.0-16.0 718-7) HCT (test code = 40.8 % 36.0-45.0 4544-3) MCV (test code = 86.3 fL 78.0-95.0 787-2) MCH (test code = 28.8 pg 26.0-32.0 785-6) MCHC (test code = 33.3 g/dL 32.0-36.0 786-4) RDW-SD (test code = 41.1 fL 38.5-49.0 18293-5) RDW-CV (test code = 13.2 % 11.5-14.0 788-0) PLT (test code = See_Comment [Automated 777-3) message] The sy stem which generated this result transmitted reference range : 135 - 361 10*3/ ?L. The reference r lorene was not used to interpret this result as normal/abnormal . MPV (test code = 12.5 fL 9.4-13.3 67327-6) NRBC/100 WBC (test See_Comment [Automat ed code = 9772939039) message] The system which generated this result transmitted reference range : 0.0 - 10.0 /100 WBCs. The refer ence range was not u sed to interpret th is result as normal/abnormal . NRBC x10^3 (test code <0.01 See_Comment [Auto mated = 7295978151) message] The s ystem which generated this result transmitted reference range : 10*3/?L. The reference range was not used to interpret this result as normal/abnormal . GRAN MAT (NEUT) % 59.1 % (test code = 770-8) IMM GRAN % (test code 0.40 % = 4639549842) LYMPH % (test code = 31.7 % 736-9) MONO % (test code = 7.0 % 5905-5) EOS % (test code = 1.3 % 713-8) BASO % (test code = 0.5 % 706-2) GRAN MAT x10^3(ANC) 4.58 10*3/uL 1.50-10.30 (test code = 2068176897) IMM GRAN x10^3 (test 0.03 10*3/uL 0.00-0.06 code = 7012941022) LYMPH x10^3 (test code 2.45 10*3/uL 0.70-7.40 = 731-0) MONO x10^3 (test code 0.54 10*3/uL 0.00-0.50 H = 742-7) EOS x10^3 (test code = 0.10 10*3/uL 0.00-0.40 711-2) BASO x10^3 (test code 0.04 10*3/uL 0.00-0.10 = 704-7) Lab Interpretation Abnormal (test code = 77983-2) [facility] GLUCOSE(AGE >30DAYS)2020-11-30 05:31:00 Test Item Value Reference Range Interpretation Comments POCT Glu (age>30days) (test code = 83 mg/dL 70-110 3342) Lab Interpretation (test code = Normal 14750-4) [facility] GLUCOSE(AGE >30DAYS)2020-11-30 05:31:00 Test Item Value Reference Range Interpretation Comments POCT Glu (age>30days) (test code = 83 mg/dL 70-110 3342) Lab Interpretation (test code = Normal 34819-4) [facility] [id number] 05:26:00 Test Item Value Reference Range Interpretation Comments POCT PREG (test code = 1605) NEGATIVE On board controls acceptable with POSITIVE C Line (test code = 3574) POCT PREG LOT # (test code = 3575) [id number] POCT PREG TEST DATE (test 03/22/2022 code = 3576) Lab Interpretation (test code = Normal 92020-0) [facility] [id number] 05:26:00 Test Item Value Reference Range Interpretation Comments POCT PREG (test code = 1605) NEGATIVE On board controls acceptable with POSITIVE C Line (test code = 3574) POCT PREG LOT # (test code = 3575) [id number] POCT PREG TEST DATE (test 03/22/2022 code = 3576) Lab Interpretation (test code = Normal 90127-1) [facility] HEAD WO [id number] 04:38:43 1. No intracranial abnormalities.2. Left parietal scalp hematoma with no skull fracture RL: [id number] of report ORDERING CLINICIAN: ALEC RIVERA TECHNIQUE: Axial scanning of the brain was performed without IV contrast. CT scan was performed according to the ALARA (as low as reasonablyachievable) principal. INDICATION: Head injury COMPARISON: None DISCUSSION:There is no intracranial hemorrhage, extra-axial fluid collections, midlineshift or hydrocephalus. There is no loss of the pineda- white matterdifferentiation. No mass lesion isidentified. There is a left parietal scalp hematoma. There is no skull fracture. The parenchymal volume is within normal limits for the patient's age. [facility], Radiant Results Inft User - 05/28/2019 10:39PM CSTORDERING CLINICIAN: ALEC TRIANAIQUE: Axial scanning of the brain was performed without IV contrast.CT scan was performed according to the ALARA (as low as reasonablyachievable) principal.INDICATION: Head injuryCOMPARISON: NoneDISCUSSION:There is no intracranial hemorrhage, extra- axial fluid collections, midlineshift or hydrocephalus. There is no loss of the pineda-white matterdifferentiation. No mass lesion is identified.There is a left parietal scalp hematoma. There is no skull fracture.The parenchymal volume is within normal limits for the patient's age.IMPRESSION1. No intracranial abno rmalities.2. Left parietal scalp hematoma with no skull fractureRL: [id number] of report [facility] 3 [id number] 04:36:57Unremarkable cervical spine radiographs RL: [id number] End of report ORDERING PHYSICIAN: JACKY RIVERA TECHNIQUE: Cervical spine 3 views HISTORY: Fall, neck injury COMPARISON: None FINDINGS:The alignment of the cervical spine is normal. There are no displaced fractures. The prevertebral soft tissues are normal. [facility], Radiant Results Inft User- 05/28/2019 10:38 PM CSTORDERING PHYSICIAN: ALEC TRIANAIQUE: Cervical spine 3 viewsHISTORY:Fall, neck injuryCOMPARISON: NoneFINDINGS:The alignment of the cervical spine is normal.There are nodisplaced fractures.The prevertebral soft tissues are normal.IMPRESSIONUnremarkable cervical spine radiographsRL: [id number] of report [facility]"
[2021-05-27 18:53] LABS: Absolute Lymphocytes (CBC) 2.2 K/uL (0.7-4.9); Hematocrit 38.7 % (36.0-45.0); Lymphocytes % 36.3 % (15.3-44.8); MPV 10.5 fL (7.6-11.3)
[2021-05-27 19:00] LABS: Urine Blood 3+ (Negative); Urine Glucose Negative (Negative); Urine Protein Negative (Negative); Urine Specific Gravity >=1.030 (1.005-1.030)
[2021-05-27 19:03] LABS: ALT/SGPT 16 U/L (12-78); AST/SGOT 13 U/L (15-37); Alkaline Phosphatase 66 U/L (45-117); BUN Blood Urea Nitrogen 11 mg/dL (7-18); Bicarbonate 27 mmol/L (21-32); Bilirubin Total 0.3 mg/dL (0.2-1.0); Glucose Level 90 mg/dL (74-106); Potassium 3.7 mmol/L (3.5-5.1); Protein, Total 7.2 g/dL (6.4-8.2); Sodium Level 140 mmol/L (136-145)
[2021-05-27 19:21] LABS: Barbiturates NEGATIVE (NEGATIVE); Benzodiazepines NEGATIVE (NEGATIVE); Cocaine NEGATIVE (NEGATIVE); METHAMPHETAM NEGATIVE (NEGATIVE); Methadone NEGATIVE (NEGATIVE); Opiates NEGATIVE (NEGATIVE); Phencyclidine NEGATIVE (NEGATIVE); THC Cannibis POSITIVE (NEGATIVE)
--- NOTE | 2021-05-27 19:45 | EDPHYS ---
Physician Documentation [facility] Name: Sofie Jensen Age: 20 yrs Sex: Female : 2000 Arrival Date: 05/27/2021 Time: 18:12 Bed 23 Private MD: ED Physician Mckayla Benitez HPI: 05/27 18:29 This 20 yrs old Female presents to ER via EMS with complaints of Seizure. pm1 18:29 The patient presents after having a single isolated seizure, that lasted 10 minute(s), pm1 the episode(s) was witnessed, by family. Character of seizure(s): Loss of consciousness: the patient did not lose consciousness, Motor activity: generalized, Incontinence: none, Apnea: the patient did not experience apnea, Circulation: the patient did not experience evidence of pulse disturbance, Eye movements: Rolled back. Seizure onset: just prior to arrival. Seizure Hx: Last seizure: The patient's last seizure February 2021. Associated injury: The patient did not suffer any apparent associated injury. EMS care: Ativan, IV. Current symptoms: Talking like an . The patient has experienced similar episodes in the past, multiple times. The patient has not recently seen a physician. Reports that her seizures are prompted by stress. Patient's brother . 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 - Social history:: Smoking status: Patient reports the use of cigarette tobacco products. ROS: 18:29 Constitutional: Negative for fever, chills, and weight loss, Cardiovascular: Negative pm1 for chest pain, palpitations, and edema, Respiratory: Negative for shortness of breath, cough, wheezing, and pleuritic chest pain, Abdomen/GI: Negative for abdominal pain, nausea, vomiting, diarrhea, and constipation, Back: Negative for injury and pain, MS/Extremity: Negative for injury and deformity, Skin: Negative for injury, rash, and discoloration. 18:29 Neuro: Positive for seizure activity, Negative for headache, weakness. 18:29 Psych: Positive for anxiety. 18:29 All other systems are negative. Exam: 18:29 Constitutional: This is a well developed, well nourished patient who is awake, alert, pm1 and in no acute distress. Head/Face: Normocephalic, atraumatic. 18:29 Skin: Warm, dry with normal turgor. Normal color with no rashes, no lesions, and no evidence of cellulitis. MS/ Extremity: Pulses equal, no cyanosis. Neurovascular intact. Full, normal range of motion. 18:29 Eyes: Exam is negative for acute changes, Extraocular movements: no acute changes, Conjunctiva: no acute changes, no injection. 18:29 Cardiovascular: Exam negative for acute changes, Rate: normal, Rhythm: regular, Pulses: no pulse deficits are appreciated, Heart sounds: normal, normal S1and S2. 18:29 Respiratory: Exam negative for acute changes, respiratory distress, shortness of breath, Breath sounds: are clear throughout. 18:29 Neuro: Exam negative for acute changes, Orientation: is normal, Mentation: is normal, Motor: is normal, moves all fours. Vital Signs: 18:12 BP 116 / 71; Pulse 74; Resp 18; Temp 98.8; Pulse Ox 99% ; Weight 63.5 kg; Height 5 ft. ss7 5 in. (165.10 cm); 20:19 BP 114 / 73; Pulse 70; Resp 16; Pulse Ox 9% ; ss7 18:12 Body Mass Index 23.30 (63.50 kg, 165.10 cm) ss7 MDM: 18:23 Patient medically screened. pm1 19:43 Data reviewed: vital signs. Data interpreted: Pulse oximetry: on room air is 99 %. pm1 Interpretation: normal. Counseling: I had a detailed discussion with the patient and/or guardian regarding: the historical points, exam findings, and any diagnostic results supporting the discharge/admit diagnosis, lab results, the need for outpatient follow up, a neurologist, a psychiatrist, to return to the emergency department if symptoms worsen or persist or if there are any questions or concerns that arise at home. 05/27 18:26 Order name: UDS pm1 05/27 18:26 Order name: CBC with Diff pm1 05/27 18:26 Order name: CMP pm1 05/27 18:27 Order name: Urine Drug Screen; Complete Time: 19:26 EDMS 05/27 18:27 Order name: CBC with Automated Diff; Complete Time: 19:04 EDMS 05/27 18:27 Order name: Comprehensive Metabolic Panel; Complete Time: 19:04 EDMS 05/27 18:26 Order name: Urine Dipstick-Ancillary (obtain specimen); Complete Time: 19:01 pm1 05/27 18:26 Order name: Urine Test (obtain specimen); Complete Time: 19:01 pm1 05/27 18:26 Order name: EKG; Complete Time: 18:27 pm1 05/27 18:26 Order name: EKG - Nurse/Tech; Complete Time: 19:01 pm1 05/27 19:00 Order name: Urine Dipstick-Ancillary; Complete Time: 19:04 EDMS Administered Medications: No medications were administered Disposition Summary: 05/27/21 19:44 Discharge Ordered Location: Home pm1 Problem: new pm1 Symptoms: have improved pm1 Condition: Stable pm1 Diagnosis - Other seizures pm1 - Acute stress reaction pm1 Followup: pm1 - With: Emergency Department - When: As needed - Reason: Worsening of condition Followup: pm1 - With: Private Physician - When: 2 - 3 days - Reason: Recheck today's complaints, Continuance of care, Re-evaluation by your physician Discharge Instructions: - Discharge Summary Sheet pm1 - Seizure, Adult pm1 - Stress, Adult pm1 - Managing Anxiety, Adult pm1 Forms: - Medication Reconciliation Form pm1 - Thank You Letter pm1 - Antibiotic Education pm1 - Prescription Opioid Use pm1 Signatures: Dispatcher [employer] EDMS Bebeto Pabon NP CORE JAVA SOFTWARE ENGINEER pm1 Ronel Hawley, RN RN ss7
--- NOTE | 2021-05-27 19:45 | ER ---
Nurse's Notes [facility] Name: Sofie Jensen Age: 20 yrs Sex: Female : 2000 Arrival Date: 05/27/2021 Time: 18:12 Bed 23 Private MD: Diagnosis: Other seizures;Acute stress reaction Presentation: 05/27 18:12 Chief complaint: EMS states: EMS called due to seizure activity that lasted approx ss7 10minutes. + post ictal upon arrival. PMH of seizures with long post ictal states that causes her to return to " mentality" pt is unable to speak or walk. +able to follow commands. Pt does not take medication for seizures. Coronavirus screen: Vaccine status: Patient reports being unvaccinated. Ebola Screen: No symptoms or risks identified at this time. Initial Sepsis Screen: Does the patient meet any 2 criteria? No. Patient's initial sepsis screen is negative. Does the patient have a suspected source of infection? No. Patient's initial sepsis screen is negative. Risk Assessment: Do you want to hurt yourself or someone else? Patient reports no desire to harm self or others. Onset of symptoms was May 27, 2021. 18:12 Method Of Arrival: EMS: [facility] ss7 18:12 Acuity: EN 3 ss7 18:17 Note Given Ativan 2mg IV per EMS as patient began to seize again. ss7 Triage Assessment: 18:15 General: Appears in no apparent distress. Behavior is calm, cooperative, inappropriate ss7 for age. EENT: No deficits noted. Neuro: Level of Consciousness is awake, alert, obeys commands, lethargic, Oriented to Cane Burner are weak bilaterally Weakness in bilateral arm(s) leg(s) Gait is Speech with expressive aphasia noted. Cardiovascular: Heart tones S1 S2. Respiratory: Breath sounds are clear bilaterally. GI: Bowel sounds present X 4 quads. : No deficits noted. Derm: No deficits noted. Musculoskeletal: No deficits noted. 20:20 Pain: Denies pain. 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 - Social history:: Smoking status: Patient reports the use of cigarette tobacco products. Screenin:17 Abuse screen: Denies threats or abuse. Nutritional screening: No deficits noted. ss7 Tuberculosis screening: No symptoms or risk factors identified. Fall Risk IV access (20 points). Gait- Weak (10 pts.). Vital Signs: 18:12 BP 116 / 71; Pulse 74; Resp 18; Temp 98.8; Pulse Ox 99% ; Weight 63.5 kg; Height 5 ft. ss7 5 in. (165.10 cm); 20:19 BP 114 / 73; Pulse 70; Resp 16; Pulse Ox 9% ; ss7 18:12 Body Mass Index 23.30 (63.50 kg, 165.10 cm) ss7 ED Course: 18:12 Patient arrived in ED. ss7 18:15 Triage completed. ss7 18:15 Arm band placed on. ss7 18:16 Bebeto Pabon NP is PHCP. pm1 18:16 Mckayla Benitez MD is Attending Physician. pm1 18:17 Bed in low position. Call light in reach. Side rails up X2. Adult w/ patient. Cardiac ss7 monitor on. Pulse ox on. NIBP on. 18:17 Maintain EMS IV. Dressing intact. Good blood return noted. Site clean \\T\\ dry. Gauge \\T\\ ss 7 site: 20G RAC. 18:35 CBC with Automated Diff Sent. ss7 18:35 Comprehensive Metabolic Panel Sent. ss7 18:36 CMP Sent. ss7 18:39 Ronel Hawley RN is Primary Nurse. ss7 19:01 Urine Drug Screen Sent. ss7 19:01 CBC with Diff Sent. ss7 19:01 UDS Sent. ss7 20:20 No provider procedures requiring assistance completed. IV discontinued, intact. ss7 Administered Medications: No medications were administered Outcome: 19:44 Discharge ordered by . pm1 20:20 Discharged to home via wheelchair, with friend. ss7 20:20 Condition: good 20:20 Discharge instructions given to patient, friend, Instructed on discharge instructions, follow up and referral plans. Demonstrated understanding of instructions, follow-up care. 20:21 Patient left the ED. ss7 Signatures: Bebeto Pabon NP TIRE AND LUBE TECHNICIAN pm1 Hawley, Ronel, RN RN ss7
[2021-05-27 21:03] VITALS: TEMP 98.8
[2021-05-27 21:04] VITALS: BP 114/73; O2SAT 9
--- NOTE | 2021-05-28 12:50 | EKG ---
Test Date: 2021-05-27 Test Time: 18:45:42 English Composition Instructor: SS MEASUREMENT RESULTS: Intervals: Rate: 86 NJ: 174 QRSD: 88 QT: 370 QTc: 442 [place]: P: -5 NJ: 174 QRS: -16 T: 26 INTERPRETIVE STATEMENTS: Normal sinus rhythm with sinus arrhythmia Moderate voltage criteria for LVH, may be normal variant Borderline ECG Compared to ECG 01/22/2018 13:21:20 Left ventricular hypertrophy now present Electronically Signed On 05-28-21 12:49:26 STEAM PIPE FITTER by Trent aCpellan
== END 2021-05-27 20:21 | disposition home or self-care (01) ==
LOC: ER 18:01
DX: F43.0 Acute stress reaction (principal); Z72.0 Tobacco use; Z91.018 Allergy to other foods
CPT/HCPCS: 36415; 80053; 80307; 81003; 85025; 93005; 99284

== ENCOUNTER 2021-06-02 00:05 | Emergency (ER) | payer OTHER ==
--- OUTSIDE RECORDS SUMMARY | 2021-06-02 00:13 | XMS REPORT | Continuity of Care Document ---
:2000 Author Organization [facility] [place] [facility] t Address [address] [place] [address] Care Team Providers Name Role Phone PCP, [...] Number Effective Date Expiration Date Courtney JONES [id number] 2019 00:00:00 [place] [facility] [id number] 2017 HEALTH 00:00:00 Problems Condition Condition Condition [...] rs active active ity of problems problems [facility] Allergies, Adverse Reactions, Alerts Allergy Allergy Status Severity Reaction(s) Onset Inactive Treating Comm ents Source Name Type Date Date Clinician [place] [facility] Active Hives Univers And ty to [...] Quantity Comments Source Exposure to Not sure [facility] SARS-CoV-2 (event) [facility] Tobacco use and 2017-11-19 2017-11-19 Never used [facility] exposure 00:00:00 00:00:00 Medical [place] Sex Assigned At [birth year] [facility] 00:00:00 00:00:00 Medical Branch Smoking Status Start Date Stop Date Source Never smoker [facility] Medications Ordered Filled Start Stop Current Ordering Indication Dosage Frequency Signature Comments Components Source Medication Medication Date Date Medication? Clinician (SIG) Name Name Potassium Yes 40meq 40 mEq, Univ ers Bicarb-Citr 12-04 Oral, ity of ic Acid 14:00: DAILY, [place] (EFFER-K) 00 First dose Medi lilibeth effervescen on Thu [place] t tablet 40 12/04/20 at mEq 0900, Until Discontinu ed, Routine Potassium Yes 40meq 40 mEq, Univ ers Bicarb-Citr 9-14 Oral, ity of ic Acid 14:00: DAILY, [place] (EFFER-K) 00 First dose Medi lilibeth effervescen on Thu t tablet 40 12/04/20 at mEq 0900, Until Discontinu ed, Routine prazosin Yes 1mg 1 mg, Univers (MINIPRES) 9-14 Oral, QHS, ity of capsule 1 02:00: [place] dose [place] 00 on [facility] 12/03/20 at [place] 2100, Until Discontinu ed, Routine prazosin Yes 1mg 1 mg, Univers (MINIPRES) 9-14 Oral, QHS, ity of capsule 1 02:00: [place] mg 00 on [facility] 12/03/20 at [place] 2100, Until Discontinu ed, Routine vitamin 2020- No [id number] 1000ug Take 1 U nivers B-12 1,000 9-14 10-15 tablet by ity of mcg tablet 00:00: 04:59 mouth [place] 00 :00 daily for Medical 30 days. [place] vitamin 2020- No [id number] 1000ug Take 1 U nivers B-12 1,000 -14 10-15 tablet by ity of mcg tablet 00:00: 04:59 mouth [place] 00 :00 daily for Medical 30 days. [place] gadoteridol 2020- No [id number] .2mL/kg 11.8 mL Univers (PROHANCE-1 12-03 (0.2 mL/kg i ty of 5 mL) 17:00: 17:00 ?59 kg), [place] injection 00 :00 Intravenou Medi lilibeth 11.8 mL s, ONCE, 1 Branch dose, On [facility] 12/03/20 at 1200, Routine gadoteridol 2020- No [id number] .2mL/kg 11.8 mL Univers (PROHANCE-1 12-03 (0.2 mL/kg i ty of 5 mL) 17:00: 17:00 ?59 kg), [place] injection 00 :00 Intravenou Medi lilibeth 11.8 mL s, ONCE, 1 Branch dose, On [facility] 12/03/20 at 1200, Routine vitamin Yes 1000ug 1,000 mcg, Un spring B-12 12-03 Oral, ity of (CYANOCOBAL 14:00: DAILY[place] RAM[place] 00 First dose Medical tablet on Mon Branch 1,000 mcg 12/03/20 at 0900, Until Discontinu ed, Routine pantoprazol Yes 40mg 40 mg, [facility] ers e 12-03 Oral, ity of (PROTONIX) 14:00: DAILY, [place] EC tablet 00 First dose Medi lilibeth 40 mg on Thu Branch 12/03/20 at 0900, Until Discontinu ed, Routine vitamin 0 Yes 1000ug 1,000 mcg, Un spring B-12 12-03 Oral, ity of (CYANOCOBAL 14:00: DAILY[place] RAM[place] 00 First dose Medical tablet on [facility] Branch 1,000 mcg 12/03/20 at 0900, Until Discontinu ed, Routine pantoprazol Yes 40mg 40 mg, Univ ers e 12-03 Oral, ity of (PROTONIX) 14:00: DAILY, [place] EC tablet 00 First dose Medi lilibeth 40 mg on [facility] Branch 12/03/20 at 0900, Until Discontinu ed, Routine potassium 2020- No 20meq 20 mEq, IV Univers chloride 20 12-03 Piggyback, i ty of mEq/100 mL 13:00: 16:59 Q2H, 2 [place] (KCL) 20 00 :00 doses, Medical mEq/100 mL First dose [facility] RTU IVPB 20 on Thu mEq 12/03/20 at 0800, Last dose on Thu12/03/20 at 1000, 100 mL potassium 2020- No 20meq 20 mEq, IV Univers chloride 20 12-03 Piggyback, i ty of mEq/100 mL 13:00: 16:59 Q2H, 2 [place] (KCL) 20 00 :00 doses, Medical mEq/100 mL First dose [facility] RTU IVPB 20 on Thu mEq 12/03/20 at 0800, Last dose on Thu12/03/20 at 1000, 100 mL ciprofloxac 2020-2020- No [id number] 500mg Take 1 Univers in HCl 500 12-03 tablet by ity of mg tablet 00:00: 04:59 mouth [place] 00 :00 every 12 Medical (twelve) Branch hours for 7 days. ciprofloxac 2020- No [id number] 500mg Take 1 Univers in HCl 500 12-03 tablet by ity of mg tablet 00:00: 04:59 mouth [place] 00 :00 every 12 Medical (twelve) Branch hours for 7 days. enoxaparin Yes 40mg 40 mg, Unive rs (LOVENOX) 12-02 Subcutaneo ity of injection 22:00: us, DAILY, [place] 40 mg 00 First dose Medical on [facility] 12/02/20 at 1700, Until Discontinu ed, Routine enoxaparin Yes 40mg 40 mg, Unive rs (LOVENOX) 12-02 Subcutaneo ity of injection 22:00: us, DAILY, [place] 40 mg 00 First dose Medical on [facility] 12/02/20 at 1700, Until Discontinu ed, Routine gadoteridol 2020- No [id number] .2mL/kg 11.8 mL Univers (PROHANCE-1 12-02 (0.2 mL/kg i ty of 5 mL) 17:45: 17:45 ?59 kg), [place] injection 00 :00 Intravenou Medi lilibeth 11.8 mL s, ONCE, 1 Branch dose, On [facility] 12/02/20 at 1245, Routine gadoteridol 2020- No [id number] .2mL/kg 11.8 mL Univers (PROHANCE-1 12-02 (0.2 mL/kg i ty of 5 mL) 17:45: 17:45 ?59 kg), [place] injection 00 :00 Intravenou Medi lilibeth 11.8 mL s, ONCE, 1 Branch dose, On [facility] 12/02/20 at 1245, Routine cefTRIAXone Yes 1000mg 1,000 mg, Univers (ROCEPHIN) 12-02 IV ity of 1,000 mg in 16:30: Piggyback, [place] NaCl 0.9% 00 Q24H ABX, Medic al (NS) 50 mL First dose [facility] MINI-BAG on [place] 12/02/20 at 1130, Until Discontinu ed, Administer over 30 Minutes, 50 mL
Reas on for Anti-Infec tive: Documented Infection< br>Documen carole Infection Site: Urine
D uration of Therapy: 7 days cefTRIAXone 0 Yes 1000mg 1,000 mg, Univers (ROCEPHIN) 9-12 IV ity of 1,000 mg in 16:30: Piggyback, [place] NaCl 0.9% 00 Q24H ABX, Medic al (NS) 50 mL First dose [facility] MINI-BAG on [place] 12/02/20 at 1130, Until Discontinu ed, Administer over 30 Minutes, 50 mL
Reas on for Anti-Infec tive: Documented Infection< br>Documen carole Infection Site: Urine
D uration of Therapy: 7 days NaCl 0.9% 0 Yes 1000mL at 50 Unive rs (NS) IV 9-12 mL/hr, IV ity of infusion 15:30: Infusion, [place] 1,000 mL 00 CONTINUOUS Medic al , Starting Branch on [facility] 12/02/20 at 1030, Until Discontinu ed, Routine NaCl 0.9% 0 Yes 1000mL at 50 Unive rs (NS) IV 9-12 mL/hr, IV ity of infusion 15:30: Infusion, [place] 1,000 mL 00 CONTINUOUS Medic al , Starting Branch on [facility] 12/02/20 at 1030, Until Discontinu ed, Routine acetaminoph 0 Yes 650mg 650 mg, Un spring en 12 Oral, ity of (TYLENOL) 15:19: Q6HPRN, [place] tablet 650 42 Starting Medic al mg on [facility] 12/02/20 at 1019, Until Discontinu ed, Routine, Pain (scale 4-6) docusate 0 Yes 100mg 100 mg, Unive rs (COLACE) 912 Oral, ity of capsule 100 15:19: QDAILYPRN, [place] mg 42 Starting Medical on [facility] 12/02/20 at 1019, Until Discontinu ed, Routine, Constipati on acetaminoph 0 Yes 650mg 650 mg, Un spring en 9-12 Oral, ity of (TYLENOL) 15:19: Q6HPRN, [place] tablet 650 42 Starting Medic al mg on [facility] 12/02/20 at 1019, Until Discontinu ed, Routine, Pain (scale 4-6) docusate Yes 100mg 100 mg, Unive rs (COLACE) 12-02 Oral, ity of capsule 100 15:19: QDAILYPRN, [place] mg 42 Starting Medical on [facility] 12/02/20 at 1019, Until Discontinu ed, Routine, Constipati on midazolam 2020- No 1mg 1 mg, IV Uni vers (VERSED) 12-02 Push, ity of injection 1 11:15: 10:15 ONCE, 1 [place] mg 00 :00 dose, [facility] 12/02/20 at Branch 0615, STAT midazolam 2020-0 2020- No 1mg 1 mg, IV Uni vers (VERSED) 12-02 Push, ity of injection 1 11:15: 10:15 ONCE, 1 [place] mg 00 :00 dose, [facility] 12/02/20 at [place] 0615, STAT midazolam 2020-2020- No 1mg 1 mg, IV Uni vers (VERSED) 12-02 Push, ity of injection 1 10:45: 09:30 ONCE, 1 [place] mg 00 :00 dose, [facility] 12/02/20 at Branch 0545, STAT midazolam 2020-2020- No 1mg 1 mg, IV Uni vers (VERSED) 12-02 Push, ity of injection 1 10:45: 09:30 ONCE, 1 [place] mg 00 :00 dose, [facility] 12/02/20 at Branch 0545, STAT NaCl 0.9% Yes 1000mL at 125 Univ ers (NS) IV 9-12 mL/hr, IV ity of infusion 10:00: Infusion, [place] 1,000 mL 00 CONTINUOUS Medic al , Starting [facility] 12/02/20 at 0500, Until Discontinu ed, Routine NaCl 0.9% 0 Yes 1000mL at 125 Univ ers (NS) IV 9-12 mL/hr, IV ity of infusion 10:00: Infusion, [place] 1,000 mL 00 CONTINUOUS Medic al , Starting [facility] 12/02/20 at 0500, Until Discontinu ed, Routine ondansetron Yes 4mg 4 mg, Slow Univers (ZOFRAN 12-02 IV Push, ity of (PF)) 09:52: Q6HPRN, [place] injection 4 57 Starting Medi lilibeth mg [facility] 12/02/20 at 0452, Until Discontinu ed, Routine, Nausea and Vomiting (N/V) ondansetron 2020-0 Yes 4mg 4 mg, Slow Univers (ZOFRAN 12-02 IV Push, ity of (PF)) 09:52: Q6HPRN, [place] injection 4 57 Starting Medi lilibeth mg [facility] 12/02/20 at 0452, Until Discontinu ed, Routine, Nausea and Vomiting (N/V) acetaminoph 1-0 Yes 650mg 650 mg, Un spring en 12 Oral, ity of (TYLENOL) 09:52: Q6HPRN, [place] tablet 650 44 Starting Medic al mg [facility] 12/02/20 at 0452, Until Discontinu ed, Routine, Pain (scale 1-3), Temp > 38.5 C acetaminoph 2020-0 Yes 650mg 650 mg, Un spring en 12-02 Oral, ity of (TYLENOL) 09:52: Q6HPRN, [place] tablet 650 44 Starting Medic al mg [facility] 12/02/20 at 0452, Until Discontinu ed, Routine, Pain (scale 1-3), Temp > 38.5 C NaCl 0.9% 2020- No 1000mL at 999 Uni vers (NS) bolus 12-02 mL/hr, ity of infusion 09:00: 10:23 1,000 mL, [place] 1,000 mL 00 :[facility], [facility] 12/02/20 at 0400, STAT NaCl 0.9% 2020- No 1000mL at 999 Uni vers (NS) bolus 12-02 mL/hr, ity of infusion 09:00: 10:23 1,000 mL, [place] 1,000 mL 00 :00 IV Medical Piggyback, [place] ONCE, 1 dose, [facility] 12/02/20 at 0400, STAT cefTRIAXone 2020-2020- No 1000mg 1,000 mg, Univers (ROCEPHIN) 12-02 IV ity of 1,000 mg in 08:45: 08:24 [place], [place] NaCl 0.9% 00 :00 ONCE, 1 Medical (NS) 50 mL dose, [facility] Bran ch MINI-BAG 12/02/20 at 0345, Administer over 30 Minutes, 50 mL
R fabio for Anti-Infec tive: Documented Infection< br>Documen carole Infection Site: Urine
D uration of Therapy: 7 days cefTRIAXone 2020-2020- No 1000mg 1,000 mg, Univers (ROCEPHIN) 12-02 IV ity of 1,000 mg in 08:45: 08:24 [place], [place] NaCl 0.9% 00 :00 ONCE, 1 Medical (NS) 50 mL dose, [facility] Bran ch MINI-BAG 12/02/20 at 0345, Administer over 30 Minutes, 50 mL
R fabio for Anti-Infec tive: Documented Infection< br>Documen carole Infection Site: Urine
D uration of Therapy: 7 days midazolam 2020-2020- No 1mg 1 mg, IV Uni vers (VERSED) 12-02 Push, ity of injection 1 07:15: 06:42 ONCE, 1 [place] mg 00 :00 dose, [facility] 12/02/20 at Branch 0215, STAT midazolam 2020-2020- No 1mg 1 mg, IV Uni vers (VERSED) 12-02 Push, ity of injection 1 07:15: 06:42 ONCE, 1 [place] mg 00 :00 dose, [facility] 12/02/20 at Branch 0215, STAT NaCl 0.9% 2020- No 500mL at 999 Univ ers (NS) bolus 12-02 mL/hr, 500 it y of infusion 07:00: 07:12 mL, IV [place] 500 mL 00 :00 Piggyback, [facility] ONCE, 1 Branch dose, [facility] 12/02/20 at 0200, STAT NaCl 0.9% 2020-2020- No 500mL at 999 Univ ers (NS) bolus 12-02 mL/hr, 500 it y of infusion 07:00: 07:12 mL, IV [place] 500 mL 00 :00 Piggyback, Medical ONCE, 1 Branch dose, [facility] 12/02/20 at 0200, STAT cefTRIAXone 2020-0 2021- No 1000mg 1,000 mg, Univers (ROCEPHIN) 11-30 IV ity of 1,000 mg in :30: 07:03 [place], [place] NaCl 0.9% 00 :00 ONCE, 1 Medical (NS) 50 mL dose, Fri Bran ch MINI-BAG 11/30/20 at 0230, Administer over 30 Minutes, 50 mL
R fabio for Anti-Infec tive: Documented Infection< br>Documen carole Infection Site: Urine
D uration of Therapy: Other (see Comments) cefTRIAXone 2020- No 1000mg 1,000 mg, Univers (ROCEPHIN) 11-30 IV ity of 1,000 mg in :30: 07:03 [place], [place] NaCl 0.9% 00 :00 ONCE, 1 Medical (NS) 50 mL dose, Fri Bran ch MINI-BAG 11/30/20 at 0230, Administer over 30 Minutes, 50 mL
R fabio for Anti-Infec tive: Documented Infection< br>Documen carole Infection Site: Urine
D uration of Therapy: Other (see Comments) Nitrofurant Yes [id number] 100mg Take 1 Univers oin&Nit. 9-10 capsule by ity o f [place] 00:00: mouth 2 [place] (MACROBID) 00 (two) Medical 100 mg times Branch capsule daily. Nitrofurant Yes [id number] 100mg Take 1 Univers oin&Nit. 9-10 capsule by ity o f [place] 00:00: mouth 2 [place] (MACROBID) 00 (two) Medical 100 mg times Branch capsule daily. Nitrofurant Yes [id number] 100mg Take 1 Univers oin&Nit. 9-10 capsule by ity o f [place] 00:00: mouth 2 [place] (MACROBID) 00 (two) Medical 100 mg times Branch capsule daily. Nitrofurant Yes [id number] 100mg Take 1 Univers oin&Nit. 9-10 capsule by ity o f [place] 00:00: mouth 2 [place] (MACROBID) 00 (two) Medical 100 mg times Branch capsule daily. Nitrofurant Yes [id number] 100mg Take 1 Univers oin&Nit. 9-10 capsule by ity o f [place] 00:00: mouth 2 [place] (MACROBID) 00 (two) Medical 100 mg times Branch capsule daily. Nitrofurant Yes [id number] 100mg Take 1 Univers oin&Nit. 9-10 capsule by ity o f [place] 00:00: mouth 2 [place] (MACROBID) 00 (two) Medical 100 mg times Branch capsule daily. Nitrofurant Yes [id number] 100mg Take 1 Univers oin&Nit. 9-10 capsule [...] 3-11 affected ity of cream 00:00: area(s) [place] 00 daily. Medical Branch hydrocortis 2015- Yes Apply to U nivers one 1 % 3-11 affected ity of cream 00:00: area(s) [place] 00 daily. Medical Branch hydrocortis 2015- Yes [...] 00 daily. Medical Branch crotamiton 2016-0 Yes [id number] After warm Univers (EURAX) 10 3-08 bath apply ity of % lotion 00:00: lotion to [place] 00 entire Medical body Branch excluding face and scalp. Repeat in 24 hours. cetirizine 2015- Yes [id number] 10mg Take 1 Tab Univers (ZYRTEC) 10 3-08 by mouth ity of mg tablet 00:00: at bedtime [place] 00 as needed Medical for Other Branch (itching). crotamiton 0 Yes [id number] After warm Univers (EURAX) 10 3-08 bath apply ity of % lotion 00:00: lotion to [place] 00 entire Medical body Branch excluding face and scalp. Repeat in 24 hours. cetirizine 2015-0 Yes [id number] 10mg Take 1 Tab Univers (ZYRTEC) 10 3-08 by mouth ity of mg tablet 00:00: at bedtime [place] 00 as needed Medical for Other Branch (itching). crotamiton 2015-0 Yes [id number] After warm Univers (EURAX) 10 3-08 bath apply ity of % lotion 00:00: lotion to [place] 00 entire Medical body Branch excluding face and scalp. Repeat in 24 hours. cetirizine 2015-0 Yes [id number] 10mg Take 1 Tab Univers (ZYRTEC) 10 3-08 by mouth ity of mg tablet 00:00: at bedtime [place] 00 as needed Medical for Other Branch (itching). crotamiton 2015-0 Yes [id number] After warm Univers (EURAX) 10 3-08 bath apply ity of % lotion 00:00: lotion to [place] 00 entire Medical body Branch excluding face and scalp. Repeat in 24 hours. cetirizine Yes [id number] 10mg Take 1 Tab Univers (ZYRTEC) 10 3-08 by mouth ity of mg tablet 00:00: at bedtime [place] 00 as needed Medical for Other Branch (itching). crotamiton Yes [id number] After warm Univers (EURAX) 10 3-08 bath apply ity of % lotion 00:00: lotion to [place] 00 entire Medical body Branch excluding face and scalp. Repeat in 24 hours. cetirizine Yes [id number] 10mg Take 1 Tab Univers (ZYRTEC) 10 3-08 by mouth ity of mg tablet 00:00: at bedtime [place] 00 as needed Medical for Other Branch (itching). crotamiton Yes [id number] After warm Univers (EURAX) 10 3-08 bath apply ity of % lotion 00:00: lotion to [place] 00 entire Medical body Branch excluding face and scalp. Repeat in 24 hours. cetirizine Yes [id number] 10mg Take 1 Tab Univers (ZYRTEC) 10 3-08 by mouth ity of mg tablet 00:00: at bedtime [place] 00 as needed Medical for Other Branch (itching). crotamiton Yes [id number] After warm Univers (EURAX) 10 3-08 bath apply ity of % lotion 00:00: lotion to [place] 00 entire Medical body Branch excluding face and scalp. Repeat in 24 hours. cetirizine Yes [id number] 10mg Take 1 Tab Univers (ZYRTEC) 10 3-08 by mouth ity of mg tablet 00:00: at bedtime [place] 00 as needed Medical for Other Branch (itching). crotamiton Yes [id number] After warm Univers (EURAX) 10 3-08 bath apply ity of % lotion 00:00: lotion to [place] 00 entire Medical body Branch excluding face and scalp. Repeat in 24 hours. cetirizine Yes [id number] 10mg Take 1 Tab Univers (ZYRTEC) 10 3-08 by mouth ity of mg tablet 00:00: at bedtime [place] 00 as needed Medical for Other Branch (itching). crotamiton Yes [id number] After warm Univers (EURAX) 10 3-08 bath apply ity of % lotion 00:00: lotion to [place] 00 entire Medical body Branch excluding face and scalp. Repeat in 24 hours. cetirizine Yes [id number] 10mg Take 1 Tab Univers (ZYRTEC) 10 3-08 by mouth ity of mg tablet 00:00: at bedtime [place] 00 as needed Medical for Other Branch (itching). crotamiton Yes [id number] After warm Univers (EURAX) 10 3-08 bath apply ity of % lotion 00:00: lotion to [place] 00 entire Medical body Branch excluding face and scalp. Repeat in 24 hours. cetirizine Yes [id number] 10mg Take 1 Tab Univers (ZYRTEC) 10 [...] Immunizations Ordered Filled Immunization Date Status Comments [facility] e Immunization Name Name HPV9 2015-05-17 Completed University of 00:00:[address] [facility] HPV9 2015-05-17 Completed University of 00:00:[address] [facility] HPV9 2015-05-17 Completed University of 00:00:[address] [facility] HPV9 2015-05-17 Completed University of 00:00:[address] [facility] HPV9 2015-05-17 Completed University of 00:00:[address] [facility] HPV9 2015-05-17 Completed University of 00:00:[address] [facility] HPV9 2015-05-17 Completed University of 00:00:[address] [facility] HPV9 2015-05-17 Completed University of 00:00:[address] [facility] HPV9 2015-05-17 Completed University of 00:00:[address] [facility] HPV9 2015-05-17 Completed University of 00:00:[address] [facility] Varicella 2015-01-16 Completed University of (varivax)(chicken 00:00:00 [...] y of Vaccine Quad IM 3+ 00:00:00 [facility] Influenza Virus 2014-12-27 Completed Universit y of Vaccine Quad IM 3+ 00:00:00 [facility] Influenza Virus 2014-12-27 Completed Universit y of Vaccine Quad IM 3+ 00:00:00 [facility] Influenza Virus 2014-12-27 Completed Universit y of Vaccine Quad IM 3+ 00:00:00 [facility] Influenza Virus 2014-12-27 Completed Universit y of Vaccine Quad IM 3+ 00:00:00 [facility] Influenza Virus 2014-12-27 Completed Universit y of Vaccine Quad IM 3+ 00:00:00 [facility] Influenza Virus 2014-12-27 Completed Universit y of Vaccine Quad IM 3+ 00:00:00 [facility] Influenza Virus 2014-12-27 Completed Universit y of Vaccine Quad IM 3+ 00:00:00 [facility] Influenza Virus 2014-12-27 Completed Universit y of Vaccine Quad IM 3+ 00:00:00 [facility] Influenza Virus 2014-12-27 Completed Universit y of Vaccine Quad IM 3+ 00:00:00 [facility] Vital Signs Vital Name Observation Time Observation Value Comments Source Systolic blood 2020-12-04 12:43:00 118 mm[Hg] [facility] Diastolic blood 2020-12-04 12:43:00 65 mm[Hg] [facility] Heart rate 2020-12-04 12:43:00 69 /min [facility] Body temperature 2020-12-04 12:43:[address] [facility] [place] [facility] rate 2020-12-04 12:43:00 15 /min [facility] Oxygen saturation in 2020-12-04 12:43:00 97 /min [facility] Arterial blood by [facility] Pulse oximetry [place] Body height 2020-12-02 23:01:00 162.6 cm [facility] Body weight 2020-12-02 23:01:00 58.968 kg [facility] BMI 2020-12-02 23:01:00 22.31 kg/m2 [facility] Body mass index 2020-12-02 23:01:00 58.99 % Unive rsity of (BMI) [Percentile] [facility] ica Per age and sex Branch Systolic blood 2020-12-02 11:00:00 104 mm[Hg] [facility] Diastolic blood 2020-12-02 11:00:00 71 mm[Hg] Unive rsity of pressure [facility] Heart rate 2020-12-02 11:00:00 74 /min [facility] Respiratory rate 2020-12-02 11:00:00 18 /min Univ ers[facility] [place] [facility] Oxygen saturation in 2020-12-02 11:00:00 98 /min University of Arterial blood by [facility] Pulse oximetry Branch Body temperature 2020-12-02 05:55:00 36.44 [place] Univ ers[facility] [place] [facility] Body height 2020-12-02 05:55:00 162.6 cm [facility] [place] [facility] Body weight 2020-12-02 05:55:00 58.968 kg [facility] [place] [facility] BMI 2020-12-02 05:55:00 22.31 kg/m2 [facility] [place] [facility] Systolic blood 2020-11-30 08:00:00 100 mm[Hg] Univer sity of pressure [place] [facility] Diastolic blood 2020-11-30 08:00:00 66 mm[Hg] Unive rsity of pressure [place] [facility] Heart rate 2020-11-30 08:00:00 55 /min [facility] [place] [facility] Respiratory rate 2020-11-30 08:00:00 14 /min Univ ers[facility] [place] [facility] Oxygen saturation in 2020-11-30 08:00:00 100 /min University of Arterial blood by [facility] Pulse oximetry Branch Body height 2020-11-30 05:22:00 162.6 cm [facility] [place] [facility] Body weight 2020-11-30 05:22:00 58.968 kg [facility] [place] [facility] BMI 2020-11-30 05:22:00 22.31 kg/m2 [facility] [place] [facility] Body temperature 2020-11-30 05:10:00 36.44 [place] [facility] [place] [facility] Body temperature 2019-05-29 05:43:00 36.61 [place] [facility] [place] [facility] Systolic blood 2019-05-29 04:50:00 118 mm[Hg] Univer sity of pressure [place] [facility] Diastolic blood 2019-05-29 04:50:00 86 mm[Hg] Unive rsity of pressure [place] [facility] Heart rate 2019-05-29 04:50:00 61 /min [facility] [place] [facility] Respiratory rate 2019-05-29 04:50:00 18 /min Univ ers[facility] [place] [facility] Oxygen saturation in 2019-05-29 04:50:00 99 /min [place] of Arterial blood by [facility] Pulse oximetry Branch Body weight 2019-05-29 02:56:37 70.308 kg [facility] Body temperature 2019-05-29 05:43:00 36.61 [place] [facility] Systolic blood 2019-05-29 04:50:00 118 mm[Hg] Univer sity of pressure [facility] Diastolic blood 2019-05-29 04:50:00 86 mm[Hg] Unive rsity of pressure [facility] Heart rate 2019-05-29 04:50:00 61 /min [facility] Respiratory rate 2019-05-29 04:50:00 18 /min [facility] Oxygen saturation in 2019-05-29 04:50:00 99 /min [facility] Arterial blood by [facility] Pulse oximetry [place] Body weight 2019-05-29 02:56:37 70.308 kg [facility] Procedures Procedure Date / Time Performing Source Performed Clinician MR BRAIN W WO CONTRAST 2020-12-03 Luis [facility] GALV ONLY - SYPHILIS IGG/IGM 2020-12-[address] [facility] 09:57:00 [facility] ELECTROENCEPHALOGRAM 2020-12-03 [facility] MR LUMBAR SPINE W WO CONTRAST 2020-12-02 Marquez Philippe [facility] 17:43:[address] LUMBAR SPINE WO CONTRAST 2020-12-02 Marquez Philippe [facility] 16:47:15 Medical Branch PHOSPHORUS 2020-12-02 Jose Martin [facility] xas 16:10:00 Medical Branch CREATINE KINASE 2020-12-02 [facility] 16:10:00 [facility] MAGNESIUM 2020-12-02 [facility] 16:10:00 [facility] VITAMIN B12, LEVEL 2020-12-02 Jose Martin [facility] 16:10:00 Medical Branch FOLATE 2020-12-02 [facility] Branch BASIC METABOLIC PANEL (NA, K, 2020-12-02 Marquez Philippe [facility] CL, CO2, GLUCOSE, BUN, 16:10:00 Medical [place] CREATININE, CA) CBC WITH DIFF 2020-12-02 Jose Martin [facility] xa 16:10:00 [facility] HIV 1/2 AG-AB WITH REFLEX 2020-12-02 Marquez Philippe [facility] 16:10:[address] ABDOMEN PELVIS WO CONTRAST 2020-12-02 Jermain Ghosh [facility] 08:43:26 [facility] CREATINE KINASE 2020-12-02 Sj [facility] xa 07:13:00 [facility] COMP. METABOLIC PANEL (85152) 2020-12-02 Jermain Ghosh [facility] 07:13:00 [facility] THYROID STIMULATING HORMONE 2020-12-02 Jose Martin [facility] 07:13:00 [facility] POCT TEST 2020-12-02 Sj [facility] [place] 06:36:00 [facility] COVID-19 (ID NOW RAPID 2020-12-02 Sj [facility] [place] TESTING) 06:35:00 [facility] URINE DRUG (IMMUNOASSAY) - 2020-12-02 Sj [facility] COMPREHENSIVE DRUG SCREEN W/O 06:32:00 Md dical Branch REFLEX URINALYSIS 2020-12-02 Sj [facility] xa 06:31:00 [facility] CBC WITH DIFF 2020-12-02 Sj [facility] xa 06:15:00 [facility] LACTIC ACID WHOLE BLOOD 2020-12-02 Jermain Ghosh [facility] 06:14:00 [facility] NOTICE OF PRIVACY PRACTICES 2020-12-02 Doctor Unassigned, [facility] 05:51:23 [place] [facility] CONSENT/REFUSAL FOR DIAGNOSIS 2020-12-02 Doctor Unassigned, [facility] AND TREATMENT 05:51:[address] [place] [address] HEAD WO CONTRAST 2020-11-30 Chauncey Smith [facility] 06:48:07 [facility] POCT GLUCOSE(AGE >30DAYS) 2020-11-30 Chauncey Smith [facility] 05:31:00 Medical Branch AC PANEL 20 + LACTIC ACID 2020-11-30 Chauncey Smith [facility] 05:31:00 Medical Branch POCT GLUCOSE (AUTOMATED) 2020-11-30 Chauncey Smith [facility] 05:30:00 Medical Branch POCT TEST 2020-11-30 Chauncey Smith [facility] 05:26:00 [facility] URINE DRUG (IMMUNOASSAY) - 2020-11-30 Chauncey Smith [facility] COMPREHENSIVE DRUG SCREEN 05:25:00 Medica l [place] URINALYSIS 2020-11-30 Chauncey Smith [facility] ex 05:25:00 Medical Branch COVID-19 (ID NOW RAPID 2020-11-30 Chauncey Smith [facility] TESTING) 05:25:00 Medical Branch MAGNESIUM 2020-11-30 Chauncey Smith [facility] ex 05:16:00 Medical Branch COMP. METABOLIC PANEL (75570) 2020-11-30 Chauncey Smith [facility] 05:16:00 Medical Branch CBC WITH DIFF 2020-11-30 Chauncey Smith [facility] 05:16:00 Medical Branch CREATINE KINASE 2020-11-30 Chauncey Smith [facility] 05:15:00 [facility] NOTICE OF PRIVACY PRACTICES 2020-11-30 Doctor Unassigned, [facility] 05:01:[address] [place] [address] HEAD WO CONTRAST 2019-05-29 Alec Rivera [facility] 04:16:04 Medical Branch XR CERVICAL SPINE 3 VW 2019-05-29 Alec Rivera [facility] 04:15:52 [place] NOTICE OF PRIVACY PRACTICES 2019-05-29 Doctor Unassigned, [facility] 03:47:53 [place] [facility] CONSENT/REFUSAL FOR DIAGNOSIS 2019-05-29 Doctor Unassigned, [facility] AND TREATMENT 03:47:41 [place] [facility] Encounters Start End Encounter Admission Attending Care Care Encounter Source Date/Time Date/Time Type Type Clinicians Facility Department ID 2021-01-21 Emergency X [facility] [id number] Univers 22:04:[address] [facility] 2021-01-21 Emergency [facility] [id number] Univers 22:03:[address] [facility] 2021-01-21 Emergency [facility] [id number] Univers 21:40:[address] [facility] 2020 2020 Outpatient BRADY GOTTLIEB [facility] [id number] Univers 15:00:00 15:00:00 SARAHBRADY [id number] ity of [facility] 2020 2020 Outpatient BRADY GOTTLIEB [facility] [id number] Univers 15:00:00 15:00:00 SARAHBRADY Salas ity [facility] 2020-12-02 2020-12-04 Emergency Little Santamaria [id number] Univers 09:18:00 10:50:00 Lazaro Mckeon [id number] i ty [facility] 4.2.7.2.686 Tramaine [id number] [place] [id number] Branch 2020-12-02 2020-12-02 Emergency AlvarezJanine mcgrath [facility] [id number] Univers 00:47:00 09:12:00 Jermain Ghosh 350.1.13.10 ity Nicholas Carrion 4.2.7.2.686 [facility] [id number] [place] [address] Branch 2020-12-02 2020-12-02 Outpatient X SJ [facility] [id number] Univers 00:47:00 09:12:[address]ER[address] of [facility] 2020-11-30 2020-11-30 Emergency Luis [facility] [id number] Univers 00:08:00 04:02:00 Chauncey Farrell [id number] ity Shonda 4.2.7.2.686 [facility] [id number] [place] [id number] Branch 2020-11-30 2020-11-30 Orders Doctor FREGOSO [id number] Univers 00:00:00 00:00:00 Only Unassigned, JOSE [id number] [facility] 4.2.7.2.686 Tramaine [id number] [facility] 009 Branch 2019-06-15 2019-06-15 Outpatient R [facility] [id number] Univers 10:00:00 10:00:[id number] [facility] 2019-06-15 2019-06-15 Outpatient R [facility] [id number] Univers 10:00:00 10:00:[address] [facility] 2019-06-15 2019-06-15 Outpatient R [facility] [id number] Univers 10:00:00 10:00:[address] [facility] 2019-06-15 2019-06-15 Telephone de [facility] [id number] Univers 00:00:00 00:00:00 Marcos Lerma [id number] ity of [facility] 4.2.7.2.686 [place] [facility] [id number] [facility] [address] 2019-06-15 2019-06-15 Telephone de [facility] [id number] 00:00:00 00:00:00 Marcos Lerma [id number] [facility] Pediatric 4.2.7.2.686 Clinic [id number] [facility] 2019-06-14 2019-06-14 Outpatient R [facility] [id number] Univers 14:40:00 14:40:[id number] [facility] 2019-06-14 2019-06-14 Outpatient R [facility] [id number] Univers 14:40:00 14:40:[address] [facility] 2019-05-28 2019-05-28 Emergency NicoleJARALES, UTDENISE [id number] Univers 20:59:13 23:56:00 Alec Farrell 350.1.13.10 i ty of [place] 4.2.7.2.686 [facility] [id number] [facility] 084 Branch 2019-05-28 2019-05-28 Emergency X NICOLE [facility] ERT [id number] Univers 20:59:13 23:56:00 ALEC [address] of [facility] 2019-05-28 2019-05-28 Emergency [place], [place] [id number] 20:59:13 23:56:00 Alec Farrell 350.1.13.10 [place] 4.2.7.2.686 [place] [id number] 084 2019-05-28 2019-05-28 Orders Doctor ILDEFONSO [id number] Univers 00:00:00 00:00:00 Only Unassigned, JOSE 350.1.13.10 ity of [place] [facility] 4.2.7.2.686 [facility] [id number] [address] 2019-05-28 2019-05-28 Orders Doctor FREGOSO [id number] 00:00:00 00:00:00 Only Unassigned, JOSE 350.1.13.10 [place] [facility] 4.2.7.2.686 [id number] Results Test Description Test Time Test Comments Results Result Comments Source GALV ONLY - SYPHILIS IGG/IGM 2020-12-03 15:29:02 Test Item Value Reference Range Interpretation Comme nts Syphilis IgG/IgM (test code = Non-reactive Non-reactive 56893-3) VIRIDIANA (test code = VIRIDIANA) Non-reactive - No serologic evidence of T. pallidum infection. Cannot exclude incubating or early syphilis. Submit a second specimen in 2-4 weeks if syphilis is clinically suspected. Equivocal - Further testing to follow. Reactive - Further testing to follow. Lab Interpretation (test code = Normal 15251-2) [facility] SYPHILIS [id number] 15:29:02 Test Item Value Reference Range Interpretation Comments Syphilis IgG/IgM (test Non-reactive Non-reactive code = 55437-4) VIRIDIANA (test code = VIRIDIANA) Non-reactive - No serologic evidence of T. pallidum infection. Cannot exclude incubating or early syphilis. Submit a second specimen in 2-4 weeks if syphilis is clinically suspected. Equivocal - Further testing to follow. Reactive - Further testing to follow. Lab Interpretation (test Normal code = 97308-4) [facility] B12, [id number] 23:31:33 Test Item Value Reference Range Interpretation Comments VIT B12 (test code = 367 pg/mL 240-930 9542975135) VIRIDIANA (test code = VIRIDIANA) Biotin has been reported to cause a positive bias, interpret results relative to patient's use of biotin. Lab Interpretation (test Normal code = 48821-5) [facility] B12, [id number] 23:31:33 Test Item Value Reference Range Interpretation Comments VIT B12 (test code = 367 pg/mL 240-930 9366031268) VIRIDIANA (test code = VIRIDIANA) Biotin has been reported to cause a positive bias, interpret results relative to patient's use of biotin. Lab Interpretation (test Normal code = 81823-1) [facility]/2 AG-AB WITH [id number] 22:52:15 Test Item Value Reference Range Interpretation Comments HIV Negative Negative Semi-quantitative (test code = 68746-1) VIRIDIANA (test code = Non-reactive for HIV-1 VIRIDIANA) antigen and HIV-1/HIV-2 antibodies. ?No laboratory evidence of HIV infection. ?Repeat in 2-4 weeks if acute HIV infection is suspected. [facility] AG-AB WITH [id number] 22:52:15 Test Item Value Reference Range Interpretation Comments HIV Negative Negative Semi-quantitative (test code = 17463-4) VIRIDIANA (test code = Non-reactive for HIV-1 VIRIDIANA) antigen and HIV-1/HIV-2 antibodies. ?No laboratory evidence of HIV infection. ?Repeat in 2-4 weeks if acute HIV infection is suspected. [facility]OLATE2021-09-12 21:55:01 Test Item Value Reference Range Interpretation Comments FOLATE SER (test code = 10.1 ng/mL 3.0-20.0 0108214296) Lab Interpretation (test code = Normal 32309-9) [facility]2021-[facility]-12 21:55:01 Test Item Value Reference Range Interpretation Comments FOLATE SER (test code = 10.1 ng/mL 3.0-20.0 9915949183) Lab Interpretation (test code = Normal 36658-4) [facility]ano[facility] [id number] 20:12:25 Test Item Value Reference Range Interpretation Comments MAGNESIUM (test code = 5022889824) 1.6 mg/dL 1.7-2.4 L Lab Interpretation (test code = Abnormal 04174-0) [facility] [id number] 20:12:25 Test Item Value Reference Range Interpretation Comments MAGNESIUM (test code = 5081358635) 1.6 mg/dL 1.7-2.4 L Lab Interpretation (test code = Abnormal 96807-8) [facility] Metabolic Panel (Na, K, Cl, CO2, Glucose, BUN, Creatinine, Ca)2020-12-02 20:12:19 Test Item Value Reference Range Interpretation Comments NA (test code = 144 mmol/L 135-145 4720313107) K (test code = 3.3 mmol/L 3.5-5.0 L 0286199692) CL (test code = 114 mmol/L 98-108 H 2644972008) CO2 TOTAL (test code = 21 mmol/L 23-31 L 7253283481) AGAP (test code = 2-16 2697086675) BUN (test code = 4 mg/dL 7-23 L 3113994818) GLUCOSE (test code = 71 mg/dL 70-110 2959224563) CREATININE (test code = 0.57 mg/dL 0.50-1.04 3073635501) CALCIUM (test code = 7.8 mg/dL 8.6-10.6 L 0265295306) eGFR (test code = mL/min/1.73m2 4265109750) VIRIDIANA (test code = VIRIDIANA) Association of [...] tests). Lab Interpretation Abnormal (test code = 50749-0) [facility] Metabolic Panel (Na, K, Cl, CO2, Glucose, BUN, Creatinine, Ca)2020-12-02 20:12:19 Test Item Value Reference Range Interpretation Comments NA (test code = 144 mmol/L 135-145 6468690858) K (test code = 3.3 mmol/L 3.5-5.0 L 8468836676) CL (test code = 114 mmol/L 98-108 H 6553938907) CO2 TOTAL (test code = 21 mmol/L 23-31 L 0174093434) AGAP (test code = 2-16 1555706330) BUN (test code = 4 mg/dL 7-23 L 1072672177) GLUCOSE (test code = 71 mg/dL 70-110 3670102064) CREATININE (test code = 0.57 mg/dL 0.50-1.04 9090058250) CALCIUM (test code = 7.8 mg/dL 8.6-10.6 L 6371557648) eGFR (test code = mL/min/1.73m2 6791874856) VIRIDIANA (test code = VIRIDIANA) Association of [...] tests). Lab Interpretation Abnormal (test code = 03029-2) [facility] [id number] 20:10:53 Test Item Value Reference Range Interpretation Comments PHOSPHORUS (test code = 8230693471) 3.7 mg/dL 2.5-5.0 Lab Interpretation (test code = Normal 90069-3) [facility] [id number] 20:10:53 Test Item Value Reference Range Interpretation Comments PHOSPHORUS (test code = 2892337337) 3.7 mg/dL 2.5-5.0 Lab Interpretation (test code = Normal 31541-8) [facility] Kinase (CK)2020-12-02 20:10:47 Test Item Value Reference Range Interpretation Comments CK (test code = 8107753696) 59 U/L 33-194 Lab Interpretation (test code = Normal 90682-3) [facility]ano[facility] Kinase (CK)2020-12-02 20:10:47 Test Item Value Reference Range Interpretation Comments CK (test code = 5578617491) 59 U/L 33-194 Lab Interpretation (test code = Normal 06708-8) [facility] with [id number] 20:10:42 Test Item Value Reference Range Interpretation Comments WBC (test code = See_Comment [Automated 4590-2) message] The sy stem which generated this [...] RDW-SD (test code = 41.4 fL 38.5-49.0 28025-1) RDW-CV (test code = 13.2 % 11.5-14.0 788-0) PLT (test code = See_Comment L [Automated 777-3) message] The sy stem which generated this result transmitted reference range : 135 - 361 10*3/ ?L. The reference r lorene was not used to interpret this result as normal/abnormal . MPV (test code = 13.3 fL 9.4-13.3 11110-7) NRBC/100 WBC (test See_Comment [Automat ed code = 7013794998) message] The system which generated this result transmitted reference range : 0.0 - 10.0 /100 WBCs. The refer ence range was not u sed to interpret th is result as normal/abnormal . NRBC x10^3 (test code <0.01 See_Comment [Auto mated = 0568587716) message] The s ystem which generated this result transmitted reference range : 10*3/?L. The reference range was not used to interpret this result as normal/abnormal . GRAN MAT (NEUT) % 48.7 % (test code = 770-8) IMM GRAN % (test code 0.40 % = 6558086410) LYMPH % (test code = 39.4 % 736-9) MONO % (test code = 8.9 % 5905-5) EOS % (test code = 2.2 % 713-8) BASO % (test code = 0.4 % 706-2) GRAN MAT x10^3(ANC) 2.67 10*3/uL 1.50-10.30 (test code = 7163198048) IMM GRAN x10^3 (test <0.03 0.00-0.06 code = 0758176655) LYMPH x10^3 (test code 2.16 10*3/uL 0.70-7.40 = 731-0) MONO x10^3 (test code 0.49 10*3/uL 0.00-0.50 = 742-7) EOS x10^3 (test code = 0.12 10*3/uL 0.00-0.40 711-2) BASO x10^3 (test code <0.03 0.00-0.10 = 704-7) Lab Interpretation Abnormal (test code = 48202-3) [facility] with [id number] 20:10:42 Test Item Value Reference Range Interpretation Comments WBC (test code = See_Comment [Automated 6690-2) message] The sy stem which generated this result transmitted reference range : 4.50 - 13.50 10*3/?L. The reference range was not used to interpret this result as normal/abnormal . RBC (test code = See_Comment [Automated 929-8) message] The sy stem which generated this [...] RDW-SD (test code = 41.4 fL 38.5-49.0 39239-7) RDW-CV (test code = 13.2 % 11.5-14.0 788-0) PLT (test code = See_Comment L [Automated 777-3) message] The sy stem which generated this result transmitted reference range : 135 - 361 10*3/ ?L. The reference r lorene was not used to interpret this result as normal/abnormal . MPV (test code = 13.3 fL 9.4-13.3 69334-6) NRBC/100 WBC (test See_Comment [Automat ed code = 3683399419) message] The system which generated this result transmitted reference range : 0.0 - 10.0 /100 WBCs. The refer ence range was not u sed to interpret th is result as normal/abnormal . NRBC x10^3 (test code <0.01 See_Comment [Auto mated = 3915884460) message] The s ystem which generated this result transmitted reference range : 10*3/?L. The reference range was not used to interpret this result as normal/abnormal . GRAN MAT (NEUT) % 48.7 % (test code = 770-8) IMM GRAN % (test code 0.40 % = 8513043585) LYMPH % (test code = 39.4 % 736-9) MONO % (test code = 8.9 % 5905-5) EOS % (test code = 2.2 % 713-8) BASO % (test code = 0.4 % 706-2) GRAN MAT x10^3(ANC) 2.67 10*3/uL 1.50-10.30 (test code = 0069054408) IMM GRAN x10^3 (test <0.03 0.00-0.06 code = 1383079928) LYMPH x10^3 (test code 2.16 10*3/uL 0.70-7.40 = 731-0) MONO x10^3 (test code 0.49 10*3/uL 0.00-0.50 = 742-7) EOS x10^3 (test code = 0.12 10*3/uL 0.00-0.40 711-2) BASO x10^3 (test code <0.03 0.00-0.10 = 704-7) Lab Interpretation Abnormal (test code = 20155-0) [facility] [id number] 16:37:32 Test Item Value Reference Range Interpretation Comments TSH (test code = See_Comment Biotin has been 7193337498) reported to cau se a negative bias, interpret resul ts relative to pat ient's use of biotin. [Automated mess age] The system [employer] generated this result transmitted ref erence range: 0.45 - 4 .70 mIU/L. The refe rence range was not u sed to interpret this result as normal/abnor mal. Lab Interpretation (test Normal code = 47803-6) [facility] [id number] 16:37:32 Test Item Value Reference Range Interpretation Comments TSH (test code = See_Comment Biotin has been 3995408309) reported to cau se a negative bias, interpret resul ts relative to pat ient's use of biotin. [Automated mess age] The system [employer] generated this result transmitted ref erence range: 0.45 - 4 .70 mIU/L. The refe rence range was not u sed to interpret this result as normal/abnor mal. Lab Interpretation (test Normal code = 08128-0) [facility] DRUG (IMMUNOASSAY) - COMPREHENSIVE DRUG SCREEN W/O [id number] 07:41:34 Test Item Value Reference Range Interpretation Comments AMPHET (test code = Negative Negative 0910680131) FABIO U (test code = Negative Negative 4486260358) BENZO U (test code = Negative Negative 9921894729) Cocaine Metabolite (test Negative Negative code = 6508016710) METHADONE (test code = Negative Negative 9549254785) OPIATES (test code = Negative Negative 5364895137) PCP (test code = Negative Negative 6614005154) THC (test code = Presumptive Positive Negative A 6471975684) VIRIDIANA (test code = VIRIDIANA) Urine Drug [...] testing). Lab Interpretation (test Abnormal code = 24737-6) [facility] (IMMUNOASSAY) - COMPREHENSIVE DRUG SCREEN W/O [id number] 07:41:34 Test Item Value Reference Range Interpretation Comments AMPHET (test code = Negative Negative 3881944542) FABIO U (test code = Negative Negative 3127733500) BENZO U (test code = Negative Negative 6961446071) Cocaine Metabolite (test Negative Negative code = 6402055474) METHADONE (test code = Negative Negative 4963578942) OPIATES (test code = Negative Negative 6350372874) PCP (test code = Negative Negative 8440126892) THC (test code = Presumptive Positive Negative A 0942014486) VIRIDIANA (test code = VIRIDIANA) Urine Drug [...] testing). Lab Interpretation (test Abnormal code = 16162-6) [facility]. METABOLIC PANEL (33395)2020-12-02 07:38:37 Test Item Value Reference Range Interpretation Comments NA (test code = 138 mmol/L 135-145 8133966360) K (test code = 3.8 mmol/L 3.5-5.0 7787353491) CL (test code = 108 mmol/L 98-108 8560882583) CO2 TOTAL (test code = 23 mmol/L 23-31 2120401306) AGAP (test code = 2-16 5652975069) BUN (test code = 5 mg/dL 7-23 L 8382364582) GLUCOSE (test code = 93 mg/dL 70-110 4467469081) CREATININE (test code = 0.61 mg/dL 0.50-1.04 9683820150) TOTAL BILI (test code = 0.7 mg/dL 0.1-1.8 0880081983) CALCIUM (test code = 8.6 mg/dL 8.6-10.6 5406204210) T PROTEIN (test code = 6.5 g/dL 6.3-8.2 1901760362) ALBUMIN (test code = 3.9 g/dL 3.5-5.0 8047210552) ALK PHOS (test code = 56 U/L 34-122 2430338398) ALTv (test code = 15 U/L 5-35 2-6) AST(SGOT) (test code = 28 U/L 13-40 0068213473) eGFR (test code = mL/min/1.73m2 5115820630) VIRIDIANA (test code = VIRIDIANA) Association of [...] tests). Lab Interpretation Abnormal (test code = 02349-4) [facility]. METABOLIC PANEL (69920)2020-12-02 07:38:37 Test Item Value Reference Range Interpretation Comments NA (test code = 138 mmol/L 135-145 6095875860) K (test code = 3.8 mmol/L 3.5-5.0 0475600339) CL (test code = 108 mmol/L 98-108 8744042661) CO2 TOTAL (test code = 23 mmol/L 23-31 6317656044) AGAP (test code = 2-16 5931008799) BUN (test code = 5 mg/dL 7-23 L 6795739994) GLUCOSE (test code = 93 mg/dL 70-110 3350084348) CREATININE (test code = 0.61 mg/dL 0.50-1.04 4151662072) TOTAL BILI (test code = 0.7 mg/dL 0.1-1.6 3711473958) CALCIUM (test code = 8.6 mg/dL 8.6-10.6 3313472041) T PROTEIN (test code = 6.5 g/dL 6.3-8.2 0584727750) ALBUMIN (test code = 3.9 g/dL 3.5-5.0 8771025625) ALK PHOS (test code = 56 U/L 34-122 6811395819) ALTv (test code = 15 U/L 5-35 1742-6) AST(SGOT) (test code = 28 U/L 13-40 2133005536) eGFR (test code = mL/min/1.73m2 5836657708) VIRIDIANA (test code = VIRIDIANA) Association of [...] tests). Lab Interpretation Abnormal (test code = 96430-7) [facility] [id number] 07:38:17 Test Item Value Reference Range Interpretation Comments CK (test code = 6758603496) 62 U/L 33-194 Lab Interpretation (test code = Normal 47898-0) [facility] [id number] 07:38:17 Test Item Value Reference Range Interpretation Comments CK (test code = 6012937207) 62 U/L 33-194 Lab Interpretation (test code = Normal 01236-6) [facility] [facility] [place] 07[facility]07:10 Test Item Value Reference Range Interpretation Comments APPEARANCE (test code = Cloudy Clear A 9795038692) COLOR (test code = Yellow Yellow 2764682908) PH (test code = 4.8-8.0 5578074556) SP GRAVITY (test code = 1.003-1.030 1203285812) GLU U QUAL (test code = Normal Normal 8228750227) BLOOD (test code = Negative Negative 0137113901) KETONES (test code = 5 mg/dL Negative A 5452332943) PROTEIN (test code = 100 mg/dL Negative A 2887-8) UROBILIN (test code = 2.0 mg/dL Normal A 8020865618) BILIRUBIN (test code = Negative Negative 1341472113) NITRITE (test code = Negative Negative 3983168303) LEUK DENNIS (test code = 500/uL Negative A 3982336789) RBC/HPF (test code = See_Comment [Autom ated message] 2277853358) The system [employer] generated this result transmit carole reference range : 0 - 3 HPF. The refe rence range was not u sed to interpret th is result as normal/abnormal . WBC/HPF (test code = See_Comment H [Autom ated message] 8886438216) The system [employer] generated this result transmit carole reference range : 0 - 5 HPF. The refe rence range was not u sed to interpret th is result as normal/abnormal . BACTERIA (test code = Many Negative A 9763779962) MUCOUS (test code = Moderate Negative LPF A 4947406931) SQ EPITH (test code = HPF 5312650369) CA OXALATE (test code = See_Comment [Au tomated message] 7783269008) The system [employer] generated this result transmit carole reference range : <=1 HPF. The refere nce range was not u sed to interpret th is result as normal/abnormal . HYAL CAST (test code = See_Comment H [Aut omated message] 0819393265) The system [employer] generated this result transmit carole reference range : <=2 LPF. The refere nce range was not u sed to interpret th is result as normal/abnormal . Lab Interpretation (test Abnormal code = 29798-5) [facility] [place] 07[facility]07:10 Test Item Value Reference Range Interpretation Comments APPEARANCE (test code = Cloudy Clear A 0236690494) COLOR (test code = Yellow Yellow 2653863148) PH (test code = 4.8-8.0 6539457404) SP GRAVITY (test code = 1.003-1.030 2070990585) GLU U QUAL (test code = Normal Normal 8797825783) BLOOD (test code = Negative Negative 5564979439) KETONES (test code = 5 mg/dL Negative A 0921853599) PROTEIN (test code = 100 mg/dL Negative A 2887-8) UROBILIN (test code = 2.0 mg/dL Normal A 2732210242) BILIRUBIN (test code = Negative Negative 4696820102) NITRITE (test code = Negative Negative 1349492201) LEUK DENNIS (test code = 500/uL Negative A 6649139502) RBC/HPF (test code = See_Comment [Autom ated message] 5270663162) The system [employer] generated this result transmit carole reference range : 0 - 3 HPF. The refe rence range was not u sed to interpret th is result as normal/abnormal . WBC/HPF (test code = See_Comment H [Autom ated message] 6300252805) The system [employer] generated this result transmit carole reference range : 0 - 5 HPF. The refe rence range was not u sed to interpret th is result as normal/abnormal . BACTERIA (test code = Many Negative A 4173903363) MUCOUS (test code = Moderate Negative LPF A 0951074380) SQ EPITH (test code = HPF 1956951673) CA OXALATE (test code = See_Comment [Au tomated message] 7267933619) The system [employer] generated this result transmit carole reference range : <=1 HPF. The refere nce range was not u sed to interpret th is result as normal/abnormal . HYAL CAST (test code = See_Comment H [Aut omated message] 3854061263) The system [employer] generated this result transmit carole reference range : <=2 LPF. The refere nce range was not u sed to interpret th is result as normal/abnormal . Lab Interpretation (test Abnormal code = 05441-6) [facility] [place] NOW RAPID TESTING)2020-12-02 06:56:19 Test Item Value Reference Range Interpretation Comments SARS-CoV-2 Rapid ID NOW Not Detected Not Detected (test code = 37335-9) VIRIDIANA (test code = VIRIDIANA) ID NOW COVID-19 Assay is an isothermal nucleic acid amplification test intended for the qualitative detection of nucleic acid from SARS-CoV-2 viral RNA in nasopharyngeal (NUT SORTER) specimens. It is used under Emergency Use [...] indicated. Lab Interpretation Normal (test code = 46061-1) [facility] [place] NOW RAPID TESTING)2020-12-02 06:56:19 Test Item Value Reference Range Interpretation Comments SARS-CoV-2 Rapid ID NOW Not Detected Not Detected (test code = 88684-2) VIRIDIANA (test code = VIRIDIANA) ID NOW COVID-19 Assay is an isothermal nucleic acid amplification test intended for the qualitative detection of nucleic acid from SARS-CoV-2 viral RNA in nasopharyngeal (NUT SORTER) specimens. It is used under Emergency Use [...] indicated. Lab Interpretation Normal (test code = 71597-5) [facility] WITH [id number] 06:42:15 Test Item Value Reference Range Interpretation Comments WBC (test code = See_Comment [Automated message] 7690-2) The system [employer] generated this result transmitted ref erence range: 4.50 - 1 3.50 10*3/?L. The re ference range was not u sed to interpret this result as normal/abnor mal. RBC (test code = See_Comment [Automated message] 389-8) The system [employer] generated this result transmitted ref erence range: [...] RDW-SD (test code 40.5 fL 38.5-49.0 = 40997-7) RDW-CV (test code 13.1 % 11.5-14.0 = 788-0) PLT (test code = See_Comment [Automated message] 777-3) The system whic h generated this result transmitted ref erence range: 135 - 36 1 10*3/?L. The re ference range was not u sed to interpret this result as normal/abnor mal. MPV (test code = 12.9 fL 9.4-13.3 01939-1) NRBC/100 WBC (test See_Comment [Automat ed message] code = 0374351955) The syste m which generated this result transmitted ref erence range: 0.0 - 10 .0 /100 WBCs. The refer ence range was not u sed to interpret this result as normal/abnor mal. NRBC x10^3 (test <0.01 See_Comment [Automated message] code = 1676265385) The syste m which generated this result transmitted ref erence range: 10*3/?L. The reference range was not used to interpr et this result as normal/abnormal . GRAN MAT (NEUT) % 63.7 % (test code = 770-8) IMM GRAN % (test 0.40 % code = 0741036506) LYMPH % (test code 27.4 % = 736-9) MONO % (test code 7.2 % = 5905-5) EOS % (test code = 1.0 % 713-8) BASO % (test code 0.3 % = 706-2) GRAN MAT 4.40 10*3/uL 1.50-10.30 x10^3(ANC) (test code = 7532968679) IMM GRAN x10^3 0.03 10*3/uL 0.00-0.06 (test code = 0840649044) LYMPH x10^3 (test 1.89 10*3/uL 0.70-7.40 code = 731-0) MONO x10^3 (test 0.50 10*3/uL 0.00-0.50 code = 742-7) EOS x10^3 (test 0.07 10*3/uL 0.00-0.40 code = 711-2) BASO x10^3 (test <0.03 0.00-0.10 code = 704-7) [facility] WITH [id number] 06:42:15 Test Item Value Reference Range Interpretation Comments WBC (test code = See_Comment [Automated message] 8390-2) The system [employer] generated this result transmitted ref erence range: 4.50 - 1 3.50 10*3/?L. The re ference range was not u sed to interpret this result as normal/abnor mal. RBC (test code = See_Comment [Automated message] 139-8) The system [employer] generated this result transmitted ref erence range: [...] RDW-SD (test code 40.5 fL 38.5-49.0 = 65895-1) RDW-CV (test code 13.1 % 11.5-14.0 = 788-0) PLT (test code = See_Comment [Automated message] 777-3) The system [employer] generated this result transmitted ref erence range: 135 - 36 1 10*3/?L. The re ference range was not u sed to interpret this result as normal/abnor mal. MPV (test code = 12.9 fL 9.4-13.3 86091-3) NRBC/100 WBC (test See_Comment [Automat ed message] code = 2788387180) The syste m which generated this result transmitted ref erence range: 0.0 - 10 .0 /100 WBCs. The refer ence range was not u sed to interpret this result as normal/abnor mal. NRBC x10^3 (test <0.01 See_Comment [Automated message] code = 0703046078) The syste m which generated this result transmitted ref erence range: 10*3/?L. The reference range was not used to interpr et this result as normal/abnormal . GRAN MAT (NEUT) % 63.7 % (test code = 770-8) IMM GRAN % (test 0.40 % code = 3534922275) LYMPH % (test code 27.4 % = 736-9) MONO % (test code 7.2 % = 5905-5) EOS % (test code = 1.0 % 713-8) BASO % (test code 0.3 % = 706-2) GRAN MAT 4.40 10*3/uL 1.50-10.30 x10^3(ANC) (test code = 7708398841) IMM GRAN x10^3 0.03 10*3/uL 0.00-0.06 (test code = 6396514505) LYMPH x10^3 (test 1.89 10*3/uL 0.70-7.40 code = 731-0) MONO x10^3 (test 0.50 10*3/uL 0.00-0.50 code = 742-7) EOS x10^3 (test 0.07 10*3/uL 0.00-0.40 code = 711-2) BASO x10^3 (test <0.03 0.00-0.10 code = 704-7) [facility] [id number] 06:36:00 Test Item Value Reference Range Interpretation Comments POCT PREG (test code = 1605) neg On board controls acceptable with yes C Line (test code = 3574) POCT PREG LOT # (test code = [id number]) POCT PREG TEST DATE (test code = 3576) Lab Interpretation (test code = Normal 93489-3) [facility] [place] [id number] 06:36:00 Test Item Value Reference Range Interpretation Comments POCT PREG (test code = 1605) neg On board controls acceptable with yes C Line (test code = 3574) POCT PREG LOT # (test code = [id number]) POCT PREG TEST DATE (test code = 3576) Lab Interpretation (test code = Normal 44312-9) [facility] [id number] 06:31:07 Test Item Value Reference Range Interpretation Comments LACTIC ACID (test code = 2.66 mmol/L 0.50-2.20 H 8804481659) Lab Interpretation (test code = Abnormal 57449-0) [facility] [place] [id number] 06:31:07 Test Item Value Reference Range Interpretation Comments LACTIC ACID (test code = 2.66 mmol/L 0.50-2.20 H 9955498442) Lab Interpretation (test code = Abnormal 28078-8) [facility] [place] [id number] 08:22:54 Test Item Value Reference Range Interpretation Comments CK (test code = 7204887128) 101 U/L 33-194 Lab Interpretation (test code = Normal 97804-2) [facility] [place] [id number] 08:22:54 Test Item Value Reference Range Interpretation Comments CK (test code = 1952113229) 101 U/L 33-194 Lab Interpretation (test code = Normal 17962-3) [facility] HEAD WO [id number] 07:07:23 Impression: No CT evidence for acute intracranial abnormality. RL: 460 AFC: [id number] Ordering physician: CHAUNCEY SMITH Indication: Altered level [...] evidence for acute intracranial abnormal ity.RL: 460AFC: [id number] signed by Pooja Rowland MD, PhD at 11/30/2020 2:07 [facility]Un[facility] CenterCT [facility] WO [id number] 07:07:23Impression: No CT evidence for acute intracranial abnormality. RL: 460 AFC: [id number] Ordering physician: CHAUNCEY SMITH Indication: Altered level [...] evidence for acute intracranial abnormal ity.RL: 460AFC: [id number] signed by Pooja Rowland MD, PhD at 11/30/2020 2:07 AMUnBig [facility] CenterDRUG SCREEN PANEL 2 URINE 2020-11-30 05:54:09 Test Item Value Reference Range Interpretation Comments AMPHET (test code = Negative Negative 7529882853) FABIO U (test code = Negative Negative 7276656679) BENZO U (test code = Presumptive Positive Negative A 2324463874) Cocaine Metabolite (test Negative Negative code = 6058668603) METHADONE (test code = Negative Negative 2733604376) OPIATES (test code = Negative Negative 0927277003) PCP (test code = Negative Negative 9710962780) THC (test code = Presumptive Positive Negative A 3609596079) VIRIDIANA (test code = VIRIDIANA) Urine Drug [...] testing). Lab Interpretation (test Abnormal code = 14525-7) [facility] [place] [id number] 05:54:09 Test Item Value Reference Range Interpretation Comments AMPHET (test code = Negative Negative 6226212343) FABIO U (test code = Negative Negative 1503584922) BENZO U (test code = Presumptive Positive Negative A 5824820506) Cocaine Metabolite (test Negative Negative code = 5331685524) METHADONE (test code = Negative Negative 2027752604) OPIATES (test code = Negative Negative 4764057894) PCP (test code = Negative Negative 4321174822) THC (test code = Presumptive Positive Negative A 7765679994) VIRIDIANA (test code = VIRIDIANA) Urine Drug [...] testing). Lab Interpretation (test Abnormal code = 86301-9) [facility]-19 (ID NOW RAPID TESTING)2020-11-30 05:49:31 Test Item Value Reference Range Interpretation Comments SARS-CoV-2 Rapid ID NOW Not Detected Not Detected (test code = 17490-7) VIRIDIANA (test code = VIRIDIANA) ID NOW COVID-19 Assay is an isothermal nucleic acid amplification test intended for the qualitative detection of nucleic acid from SARS-CoV-2 viral RNA in nasopharyngeal (NUT SORTER) specimens. It is used under Emergency Use [...] indicated. Lab Interpretation Normal (test code = 83074-6) [facility]-19 (ID NOW RAPID TESTING)2020-11-30 05:49:31 Test Item Value Reference Range Interpretation Comments SARS-CoV-2 Rapid ID NOW Not Detected Not Detected (test code = 14652-6) VIRIDIANA (test code = VIRIDIANA) ID NOW COVID-19 Assay is an isothermal nucleic acid amplification test intended for the qualitative detection of nucleic acid from SARS-CoV-2 viral RNA in nasopharyngeal (NUT SORTER) specimens. It is used under Emergency Use [...] indicated. Lab Interpretation Normal (test code = 74690-5) [facility] [place] 05:[facility]:21 Test Item Value Reference Range Interpretation Comments APPEARANCE (test code = Hazy Clear A 2487572616) COLOR (test code = Lazara Yellow A 8353030697) PH (test code = 4.8-8.0 1318845144) SP GRAVITY (test code = 1.003-1.030 2376156199) GLU U QUAL (test code = Normal Normal 5848870859) BLOOD (test code = Negative Negative Interfere nce from 8824295105) ascorbic acid m ay cause false neg ative results. KETONES (test code = 20 mg/dL Negative A 6955129949) PROTEIN (test code = 30 mg/dL Negative A 2887-8) UROBILIN (test code = 4.0 mg/dL Normal A 3776013335) BILIRUBIN (test code = Negative Negative 9742006934) NITRITE (test code = Negative Negative 4069575068) LEUK DENNIS (test code = 500/uL Negative A 5645520606) RBC/HPF (test code = See_Comment H [Autom ated message] 9563818095) The system [employer] generated this result transmitted ref erence range: 0 - 3 HP F. The reference range was not used to int erpret this result as normal/abnormal . WBC/HPF (test code = See_Comment H [Autom ated message] 2224315053) The system [employer] generated this result transmitted ref erence range: 0 - 5 HP F. The reference range was not used to int erpret this result as normal/abnormal . BACTERIA (test code = Few Negative A 8086147462) MUCOUS (test code = Slight Negative LPF A 1828493737) SQ EPITH (test code = HPF 7872544215) Lab Interpretation Abnormal (test code = 64715-6) [facility] [place] 05:49:21 Test Item Value Reference Range Interpretation Comments APPEARANCE (test code = Hazy Clear A 0137206521) COLOR (test code = Lazara Yellow A 3872557013) PH (test code = 4.8-8.0 8461534557) SP GRAVITY (test code = 1.003-1.030 7006493694) GLU U QUAL (test code = Normal Normal 4623018421) BLOOD (test code = Negative Negative Interfere nce from 9137419764) ascorbic acid m ay cause false neg ative results. KETONES (test code = 20 mg/dL Negative A 6046650225) PROTEIN (test code = 30 mg/dL Negative A 2887-8) UROBILIN (test code = 4.0 mg/dL Normal A 2780812626) BILIRUBIN (test code = Negative Negative 8890536865) NITRITE (test code = Negative Negative 2477897707) LEUK DENNIS (test code = 500/uL Negative A 4857736312) RBC/HPF (test code = See_Comment H [Autom ated message] 5679641568) The system [employer] generated this result transmitted ref erence range: 0 - 3 HP F. The reference range was not used to int erpret this result as normal/abnormal . WBC/HPF (test code = See_Comment H [Autom ated message] 9344717835) The system [employer] generated this result transmitted ref erence range: 0 - 5 HP F. The reference range was not used to int erpret this result as normal/abnormal . BACTERIA (test code = Few Negative A 4553058180) MUCOUS (test code = Slight Negative LPF A 7216842521) SQ EPITH (test code = HPF 7498341718) Lab Interpretation Abnormal (test code = 53402-7) [facility] [place] 05:47:51 Test Item Value Reference Range Interpretation Comments MAGNESIUM (test code = 4905369525) 2.1 mg/dL 1.7-2.4 Lab Interpretation (test code = Normal 09385-9) [facility] [place]20[facility]-10 05:47:51 Test Item Value Reference Range Interpretation Comments MAGNESIUM (test code = 1985815668) 2.1 mg/dL 1.7-2.4 Lab Interpretation (test code = Normal 66290-2) [facility] [place] METABOLIC PANEL (92650)2020-11-30 05:47:35 Test Item Value Reference Range Interpretation Comments NA (test code = 139 mmol/L 135-145 8885526344) K (test code = 3.4 mmol/L 3.5-5.0 L 1146621930) CL (test code = 105 mmol/L 98-108 1442432570) CO2 TOTAL (test code = 24 mmol/L 23-31 7124509213) AGAP (test code = 2-16 9040577422) BUN (test code = 8 mg/dL 7-23 3642632240) GLUCOSE (test code = 84 mg/dL 70-110 4615467950) CREATININE (test code = 0.70 mg/dL 0.50-1.04 1388142286) TOTAL BILI (test code = 0.6 mg/dL 0.1-1.7 9267662362) CALCIUM (test code = 9.3 mg/dL 8.6-10.6 3079037375) T PROTEIN (test code = 7.7 g/dL 6.3-8.2 2053385527) ALBUMIN (test code = 4.6 g/dL 3.5-5.0 0745513661) ALK PHOS (test code = 76 U/L 34-122 8126973921) ALTv (test code = 19 U/L 5-35 1742-6) AST(SGOT) (test code = 25 U/L 13-40 7564409958) eGFR (test code = mL/min/1.73m2 2247894217) VIRIDIANA (test code = VIRIDIANA) Association of [...] tests). Lab Interpretation Abnormal (test code = 93102-4) [facility]. METABOLIC PANEL (15027)2020-11-30 05:47:35 Test Item Value Reference Range Interpretation Comments NA (test code = 139 mmol/L 135-145 7334939556) K (test code = 3.4 mmol/L 3.5-5.0 L 7787286491) CL (test code = 105 mmol/L 98-108 1438113013) CO2 TOTAL (test code = 24 mmol/L 23-31 6912709251) AGAP (test code = 2-16 8247571702) BUN (test code = 8 mg/dL 7-23 4639172386) GLUCOSE (test code = 84 mg/dL 70-110 1424951441) CREATININE (test code = 0.70 mg/dL 0.50-1.04 0604096550) TOTAL BILI (test code = 0.6 mg/dL 0.1-1.7 8271087842) CALCIUM (test code = 9.3 mg/dL 8.6-10.6 8910157884) T PROTEIN (test code = 7.7 g/dL 6.3-8.2 8619062435) ALBUMIN (test code = 4.6 g/dL 3.5-5.0 5138987341) ALK PHOS (test code = 76 U/L 34-122 6246140756) ALTv (test code = 19 U/L 5-35 1742-6) AST(SGOT) (test code = 25 U/L 13-40 9344143798) eGFR (test code = mL/min/1.73m2 9077994072) VIRIDIANA (test code = VIRIDIANA) Association of [...] tests). Lab Interpretation Abnormal (test code = 61943-2) [facility] [place])2020-11-30 05:45:23 Test Item Value Reference Range Interpretation Comments POCT GLU (test code = 2920346750) 83 mg/dL 70-110 Lab Interpretation (test code = Normal 21838-4) [facility] [place]2020-11-30 05:45:23 Test Item Value Reference Range Interpretation Comments POCT GLU (test code = 0323184815) 83 mg/dL 70-110 Lab Interpretation (test code = Normal 16921-4) [facility] [place] 20 + LACTIC [id number] 05:35:20 Test Item Value Reference Range Interpretation Comments PH (test code = 2) 7.35-7.45 PCO2 (test code = See_Comment [Automat ed 9876603842) message] The sy stem which generated this result transmitted reference range : 35 - 45 mmHg. The reference range was not used to interpret this result as normal/abnormal . PO2 (test code = See_Comment H [Automated 2797990832) message] The sy stem which generated this result transmitted reference range : 80 - 100 mmHg. The reference range was not used to interpret this result as normal/abnormal . HCO3 (test code = See_Comment [Automate d 5042644037) message] The sy stem which generated this result transmitted reference range : 22 - 26 mEq/L. The reference range was not used to interpret this result as normal/abnormal . BE (test code = See_Comment [Automated 3064352593) message] The sy stem which generated this result transmitted reference range : -3.0 - 3.0 mEq/ L. The reference r lorene was not used to interpret this result as normal/abnormal . THB (test code = 13.4 g/dL 12.0-16.0 3632549649) %O2HB (test code = 98.5 % 94.0-99.0 9937934965) %COHB ART (test code = 0.0 % 0.0-1.5 0040468935) %METHB ART (test code = 0.3 % 0.4-1.5 L 2067623799) VOL%O2 ART (test code = 18.8 % 15.0-23.0 0130234242) NA (test code = 137 mmol/L 135-145 3592824867) K+ (test code = 3.5 mmol/L 3.5-5.0 6133109816) AC CA IONZ (test code = 4.60 mg/dL 4.50-5.30 6346201074) GLUCOSE (test code = 81 mg/dL 70-110 2790994120) LACTIC ACID (test code 0.87 mmol/L 0.50-2.20 = 0056619815) Lab Interpretation Abnormal (test code = 69311-9) [facility] + LACTIC [id number] 05:35:20 Test Item Value Reference Range Interpretation Comments PH (test code = 2) 7.35-7.45 PCO2 (test code = See_Comment [Automat ed 6721893381) message] The sy stem which generated this result transmitted reference range : 35 - 45 mmHg. The reference range was not used to interpret this result as normal/abnormal . PO2 (test code = See_Comment H [Automated 8211452783) message] The sy stem which generated this result transmitted reference range : 80 - 100 mmHg. The reference range was not used to interpret this result as normal/abnormal . HCO3 (test code = See_Comment [Automate d 4236781338) message] The sy stem which generated this result transmitted reference range : 22 - 26 mEq/L. The reference range was not used to interpret this result as normal/abnormal . BE (test code = See_Comment [Automated 3253550640) message] The sy stem which generated this result transmitted reference range : -3.0 - 3.0 mEq/ L. The reference r lorene was not used to interpret this result as normal/abnormal . THB (test code = 13.4 g/dL 12.0-16.0 1827380218) %O2HB (test code = 98.5 % 94.0-99.0 7713041593) %COHB ART (test code = 0.0 % 0.0-1.5 9388987952) %METHB ART (test code = 0.3 % 0.4-1.5 L 4151428190) VOL%O2 ART (test code = 18.8 % 15.0-23.0 7233145086) NA (test code = 137 mmol/L 135-145 1490251613) K+ (test code = 3.5 mmol/L 3.5-5.0 9455410802) AC CA IONZ (test code = 4.60 mg/dL 4.50-5.30 4011190878) GLUCOSE (test code = 81 mg/dL 70-110 5889212227) LACTIC ACID (test code 0.87 mmol/L 0.50-2.20 = 3223703941) Lab Interpretation Abnormal (test code = 28167-7) [facility] WITH [id number] 05:33:34 Test Item Value Reference Range Interpretation Comments WBC (test code = See_Comment [Automated 2390-2) message] The sy stem which generated this [...] RDW-SD (test code = 41.1 fL 38.5-49.0 92425-6) RDW-CV (test code = 13.2 % 11.5-14.0 788-0) PLT (test code = See_Comment [Automated 777-3) message] The sy stem which generated this result transmitted reference range : 135 - 361 10*3/ ?L. The reference r lorene was not used to interpret this result as normal/abnormal . MPV (test code = 12.5 fL 9.4-13.3 02728-2) NRBC/100 WBC (test See_Comment [Automat ed code = 3707660835) message] The system which generated this result transmitted reference range : 0.0 - 10.0 /100 WBCs. The refer ence range was not u sed to interpret th is result as normal/abnormal . NRBC x10^3 (test code <0.01 See_Comment [Auto mated = 3668932877) message] The s ystem which generated this result transmitted reference range : 10*3/?L. The reference range was not used to interpret this result as normal/abnormal . GRAN MAT (NEUT) % 59.1 % (test code = 770-8) IMM GRAN % (test code 0.40 % = 3696080685) LYMPH % (test code = 31.7 % 736-9) MONO % (test code = 7.0 % 5905-5) EOS % (test code = 1.3 % 713-8) BASO % (test code = 0.5 % 706-2) GRAN MAT x10^3(ANC) 4.58 10*3/uL 1.50-10.30 (test code = 3860714434) IMM GRAN x10^3 (test 0.03 10*3/uL 0.00-0.06 code = [id number]) LYMPH x10^3 (test code 2.45 10*3/uL 0.70-7.40 = 731-0) MONO x10^3 (test code 0.54 10*3/uL 0.00-0.50 H = 742-7) EOS x10^3 (test code = 0.10 10*3/uL 0.00-0.40 711-2) BASO x10^3 (test code 0.04 10*3/uL 0.00-0.10 = 704-7) Lab Interpretation Abnormal (test code = 01603-4) [facility] WITH [id number] 05:33:34 Test Item Value Reference Range Interpretation Comments WBC (test code = See_Comment [Automated 0541-2) message] The sy stem which generated this result transmitted reference range : 4.50 - 13.50 10*3/?L. The reference range was not used to interpret this result as normal/abnormal . RBC (test code = See_Comment [Automated 187-8) message] The sy stem which generated this [...] RDW-SD (test code = 41.1 fL 38.5-49.0 20179-9) RDW-CV (test code = 13.2 % 11.5-14.0 788-0) PLT (test code = See_Comment [Automated 777-3) message] The sy stem which generated this result transmitted reference range : 135 - 361 10*3/ ?L. The reference r lorene was not used to interpret this result as normal/abnormal . MPV (test code = 12.5 fL 9.4-13.3 11942-7) NRBC/100 WBC (test See_Comment [Automat ed code = 1379534784) message] The system which generated this result transmitted reference range : 0.0 - 10.0 /100 WBCs. The refer ence range was not u sed to interpret th is result as normal/abnormal . NRBC x10^3 (test code <0.01 See_Comment [Auto mated = [id number]) message] The s ystem which generated this result transmitted reference range : 10*3/?L. The reference range was not used to interpret this result as normal/abnormal . GRAN MAT (NEUT) % 59.1 % (test code = 770-8) IMM GRAN % (test code 0.40 % = 1027121700) LYMPH % (test code = 31.7 % 736-9) MONO % (test code = 7.0 % 5905-5) EOS % (test code = 1.3 % 713-8) BASO % (test code = 0.5 % 706-2) GRAN MAT x10^3(ANC) 4.58 10*3/uL 1.50-10.30 (test code = 7386281976) IMM GRAN x10^3 (test 0.03 10*3/uL 0.00-0.06 code = 6398963287) LYMPH x10^3 (test code 2.45 10*3/uL 0.70-7.40 = 731-0) MONO x10^3 (test code 0.54 10*3/uL 0.00-0.50 H = 742-7) EOS x10^3 (test code = 0.10 10*3/uL 0.00-0.40 711-2) BASO x10^3 (test code 0.04 10*3/uL 0.00-0.10 = 704-7) Lab Interpretation Abnormal (test code = 05728-2) [facility] GLUCOSE(AGE >30DAYS)2020-11-30 05:31:00 Test Item Value Reference Range Interpretation Comments POCT Glu (age>30days) (test code = 83 mg/dL 70-110 3342) Lab Interpretation (test code = Normal 29034-3) [facility] GLUCOSE(AGE >30DAYS)2020-11-30 05:31:00 Test Item Value Reference Range Interpretation Comments POCT Glu (age>30days) (test code = 83 mg/dL 70-110 3342) Lab Interpretation (test code = Normal 73940-5) [facility] [id number] 05:26:00 Test Item Value Reference Range Interpretation Comments POCT PREG (test code = 1605) NEGATIVE On board controls acceptable with POSITIVE C Line (test code = 3574) POCT PREG LOT # (test code = 3575) [id number] POCT PREG TEST DATE (test 03/22/2022 code = 3576) Lab Interpretation (test code = Normal 99556-6) [facility] [id number] 05:26:00 Test Item Value Reference Range Interpretation Comments POCT PREG (test code = 1605) NEGATIVE On board controls acceptable with POSITIVE C Line (test code = 3574) POCT PREG LOT # (test code = 3575) [id number] POCT PREG TEST DATE (test 03/22/2022 code = 3576) Lab Interpretation (test code = Normal 50836-0) [facility] HEAD WO [id number] 04:38:43 1. No intracranial abnormalities.2. Left parietal [...] within normal limits for the patient's age. [facility], Radiant Results Inft User - 05/28/2019 10:39PM [...] with no skull fractureRL: 6190End of report [facility] 3 [id number] 04:36:57Unremarkable cervical spine radiographs RL: 6190 End [...] normal.IMPRESSIONUnremarkable cervical spine radiographsRL: 6190End of report [facility]"
[2021-06-02] MEDS ORDERED: NA CHLORIDE 0.9% 1,000 ML ONE (00:34)
[2021-06-02] MEDS ORDERED: LEVETIRACETAM 500 MG/5 ML VIAL IV ONE (00:34)
[2021-06-02 00:37] LABS: Absolute Lymphocytes (CBC) 1.4 K/uL (0.7-4.9); Hematocrit 39.5 % (36.0-45.0); MPV 10.5 fL (7.6-11.3); RBC Red Blood Cell Count 4.49 M/uL (3.86-4.86)
[2021-06-02] MEDS ORDERED: NA CHLORIDE 0.9% 100 ML IV ONE (00:38)
[2021-06-02 00:54] LABS: BUN Blood Urea Nitrogen 10 mg/dL (7-18); Bicarbonate 25 mmol/L (21-32); Glucose Level 93 mg/dL (74-106); Potassium 3.8 mmol/L (3.5-5.1); Sodium Level 138 mmol/L (136-145)
[2021-06-02 01:47] LABS: Urine Blood Negative (Negative); Urine Glucose Negative (Negative); Urine Protein Negative (Negative); Urine pH 7.5 (5.0-7.0)
[2021-06-02 03:11] LABS: Barbiturates NEGATIVE (NEGATIVE); Benzodiazepines POSITIVE (NEGATIVE); Cocaine NEGATIVE (NEGATIVE); METHAMPHETAM NEGATIVE (NEGATIVE); Methadone NEGATIVE (NEGATIVE); Opiates NEGATIVE (NEGATIVE); Phencyclidine NEGATIVE (NEGATIVE); THC Cannibis POSITIVE (NEGATIVE)
[2021-06-02 03:26] LABS: Urine Bacteria 20-50 /HPF (<20); Urine Trichomonas PRESENT (NONE SEEN); Urine Yeast FEW (NONE SEEN)
--- NOTE | 2021-06-02 03:44 | EDPHYS ---
Physician Documentation [facility] Name: Sofie Jensen Age: 20 yrs Sex: Female : 2000 Arrival Date: 06/02/2021 Time: 00:06 Bed 4 Private MD: ED Physician Eduardo Bill HPI: 06/02 00:24 This 20 yrs old Female presents to ER via EMS with complaints of Seizure. rn 00:24 The patient presents after having a single isolated seizure. Seizure onset: just prior rn to arrival. Seizure Hx: Original onset: 1 year(s) ago. Associated injury: The patient did not suffer any apparent associated injury. Current symptoms: confusion. The patient has experienced similar episodes in the past. The patient has not recently seen a physician. Pt's girlfriend reports she has had seizures for about 1 year, has appt with neurology next week, not currently on seizure medication, has had multiple seizures, had single seizure today that lasted approx 1 min. Pt awake now, no meds given by EMS, patient reports headache and generalized muscle aches. Denies recent illness. . 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 - Social history:: Smoking status: Reported history of juuling and/or vaping. Patient uses street drugs, marijuana. - Family history:: not pertinent. - Hospitalizations: : No recent hospitalization is reported. ROS: 00:24 Constitutional: Negative for fever, chills, and weight loss, Eyes: Negative for injury, rn pain, redness, and discharge, ENT: Negative for injury, pain, and discharge, Neck: Negative for injury, pain, and swelling, Cardiovascular: Negative for chest pain, palpitations, and edema, Respiratory: Negative for shortness of breath, cough, wheezing, and pleuritic chest pain, Abdomen/GI: Negative for abdominal pain, nausea, vomiting, diarrhea, and constipation, Back: Negative for injury and pain, : Negative for injury, bleeding, discharge, and swelling, MS/Extremity: Negative for injury and deformity, Skin: Negative for injury, rash, and discoloration, Neuro: Negative for weakness, numbness, tingling Exam: 00:24 Constitutional: This is a well developed, well nourished patient who is awake, alert, rn and in no acute distress. Head/Face: Normocephalic, atraumatic. Eyes: Periorbital areas with no swelling, redness, or edema. Cardiovascular: Regular rate and rhythm. No pulse deficits. Respiratory: No increased work of breathing, no retractions or nasal flaring. Abdomen/GI: Soft, non-tender Skin: Warm, dry MS/ Extremity: Pulses equal, no cyanosis. Neuro: Awake and alert, GCS 15 Vital Signs: 00:09 Weight 61.23 kg; Height 5 ft. 4 in. (162.56 cm); lp1 00:18 BP 126 / 79; Pulse 71; Resp 16; Pulse Ox 100% on R/A; kd3 01:59 BP 122 / 83; Pulse 72; Resp 16; Pulse Ox 100% on R/A; sf1 04:05 BP 130 / 87; Pulse 67; Resp 16; Pulse Ox 100% on R/A; kd3 00:09 Body Mass Index 23.17 (61.23 kg, 162.56 cm) lp1 [place] Coma Score: 00:13 Eye Response: spontaneous(4). Verbal Response: oriented(5). Motor Response: obeys lp1 commands(6). Total: 15. MDM: 00:07 Patient medically screened. rn 03:42 Differential diagnosis: seizure. Data reviewed: vital signs, nurses notes, lab test rn result(s), EKG, radiologic studies, CT scan, and as a result, I will discharge patient. Counseling: I had a detailed discussion with the patient and/or guardian regarding: the historical points, exam findings, and any diagnostic results supporting the discharge/admit diagnosis, lab results, radiology results, the need for outpatient follow up, to return to the emergency department if symptoms worsen or persist or if there are any questions or concerns that arise at home. Response to treatment: the patient's symptoms have markedly improved after treatment, the patient's symptoms have resolved after treatment, the patient's condition has returned to base line, the patient is now symptom free, and as a result, I will discharge patient. Special discussion: I discussed with the patient/guardian in detail that at this point there is no indication for admission to the hospital. It is understood, however, that if the symptoms persist or worsen the patient needs to return immediately for re-evaluation. Based on the history and exam findings, there is no indication for further emergent testing or inpatient evaluation. I discussed with the patient/guardian the need to see the neurologist for further evaluation of the symptoms. ED course: Pt states wants to leave, is back to baseline, refuses prescription for seizure medication, states has neuro appt in 3 days and will wait to see what they say. . 06/02 00:07 Order name: CBC with Diff; Complete Time: 03:04 rn 06/02 00:07 Order name: Basic Metabolic Panel; Complete Time: 03:04 rn 06/02 00:07 Order name: Urine Drug Screen; Complete Time: 03:13 rn 06/02 00:07 Order name: Urine Microscopic Only; Complete Time: 03:33 rn 06/02 01:47 Order name: Urine Dipstick-Ancillary; Complete Time: 03:04 EDMS 06/02 03:27 Order name: Urine Culture EDMS 06/02 00:07 Order name: CT Head Brain wo Cont rn 06/02 00:07 Order name: IV Start; Complete Time: 00:29 rn 06/02 00:07 Order name: Urine Dipstick-Ancillary (obtain specimen); Complete Time: 01:48 rn 06/02 00:07 Order name: Urine Test (obtain specimen); Complete Time: 01:48 rn 06/02 00:08 Order name: EKG; Complete Time: 00:08 rn 06/02 00:08 Order name: Cardiac monitoring; Complete Time: 00:20 rn 06/02 00:08 Order name: O2 Sat Monitoring; Complete Time: 00:19 rn 06/02 00:08 Order name: EKG - Nurse/Tech; Complete Time: 00:19 rn Administered Medications: 01:01 Drug: Keppra (levETIRAcetam) 1000 mg Route: IV; Rate: calculated rate; Site: right kd3 antecubital; 04:04 Follow up: Response: No adverse reaction; Rate change 100 ml; IV Status: Completed kd3 infusion 01:12 Drug: NS 0.9% 1000 ml Route: IV; Rate: 1000 ml; Site: right antecubital; kd3 04:04 Follow up: IV Status: Completed infusion kd3 03:54 Drug: metroNIDAZOLE 2 grams Route: PO; sf1 04:04 Follow up: Response: No adverse reaction kd3 Disposition Summary: 06/02/21 03:44 Discharge Ordered Location: Home rn Problem: new rn Symptoms: have improved rn Condition: Stable rn Diagnosis - Epileptic seizures related to external causes, not intractable, without status rn epilepticus Followup: rn - With: Private Physician - When: As needed - Reason: Recheck today's complaints, Re-evaluation by your physician Discharge Instructions: - Discharge Summary Sheet rn - Epilepsy rn - Seizure, Adult rn - Trichomoniasis rn Forms: - Medication Reconciliation Form rn - Thank You Letter rn - Antibiotic afternoon nanny - Prescription Opioid Use rn Signatures: Dispatcher [employer] EDMS Eduardo Bill MD MD rn Pena, Laura, RN RN lp1 Blanche Starkey, RN RN kd3 Samina German, RN RN sf1 Rosalia Zaragoza PA PA sb3
--- NOTE | 2021-06-02 03:44 | ER ---
Nurse's Notes [facility] Name: Sofie Jensen Age: 20 yrs Sex: Female : 2000 Arrival Date: 06/02/2021 Time: 00:06 Bed 4 Private MD: Diagnosis: Epileptic seizures related to external causes, not intractable, without status epilepticus Presentation: 06/02 00:09 Chief complaint: EMS states: Called for patient by significant other for witnessed lp1 seizure while in bed, reports about 5-10 minutes; Patient has reported new onset seizures, appt with Neurologist next week; Per EMS, patient in post-ictal state enroute. Coronavirus screen: At this time, the client does not indicate any symptoms associated with coronavirus-19. Ebola Screen: No symptoms or risks identified at this time. Onset of symptoms was June 02, 2021. Care prior to arrival: IV initiated. 20 GA, in the right antecubital area, Glucose check: 89. 00:09 Acuity: EN 2 lp1 00:09 Method Of Arrival: EMS: [facility] lp1 00:30 Initial Sepsis Screen: Does the patient meet any 2 criteria? No. Patient's initial kd3 sepsis screen is negative. Does the patient have a suspected source of infection? No. Patient's initial sepsis screen is negative. Risk Assessment: Do you want to hurt yourself or someone else? Patient reports no desire to harm self or others. Triage Assessment: 00:30 General: Appears post ictal . Behavior is calm, cooperative. Pain: Denies pain. Neuro: kd3 Level of Consciousness is awake, obeys commands, Oriented to person, place. 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 - Social history:: Smoking status: Reported history of juuling and/or vaping. Patient uses street drugs, marijuana. - Family history:: not pertinent. - Hospitalizations: : No recent hospitalization is reported. Screenin:58 Abuse screen: Denies threats or abuse. Nutritional screening: No deficits noted. sf1 Tuberculosis screening: No symptoms or risk factors identified. Fall Risk Fall in past 12 months (25 points). Secondary diagnosis (15 points) seizures, IV access (20 points). Ambulatory Aid- None/Bed Rest/Nurse Assist (0 pts). Gait- Impaired (20 pts.). Mental Status- Oriented to own ability (0 pts). Assessment: 03:20 Reassessment: Patient and/or family updated on plan of care and expected duration. Pain kd3 level reassessed. Patient is alert, oriented x 3, equal unlabored respirations, skin warm/dry/pink. General: Appears in no apparent distress. Behavior is calm, cooperative, appropriate for age. Neuro: Level of Consciousness is awake, alert, obeys commands, Oriented to person, place, time, situation. Respiratory: Airway is patent Trachea midline Respiratory effort is even, unlabored. 03:55 General: Patient gave permission to discuss personal information in front of sf1 significant other. Made patient aware that personal information would be discussed and patient confirmed okay to give information. After giving results patient's girlfriend was on the phone, nurse not aware because no one appeared to be on the phone, and several warnings of personal information was about to be shared. . Vital Signs: 00:09 Weight 61.23 kg; Height 5 ft. 4 in. (162.56 cm); lp1 00:18 BP 126 / 79; Pulse 71; Resp 16; Pulse Ox 100% on R/A; kd3 01:59 BP 122 / 83; Pulse 72; Resp 16; Pulse Ox 100% on R/A; sf1 04:05 BP 130 / 87; Pulse 67; Resp 16; Pulse Ox 100% on R/A; kd3 00:09 Body Mass Index 23.17 (61.23 kg, 162.56 cm) lp1 Vitals: 01:59 Cardiac Rhythm Assessment Regular Sinus rhythm. sf1 [place] Coma Score: 00:13 Eye Response: spontaneous(4). Verbal Response: oriented(5). Motor Response: obeys lp1 commands(6). Total: 15. ED Course: 00:01 No provider procedures requiring assistance completed. Maintain EMS IV. Dressing sf1 intact. Good blood return noted. Site clean \T\ dry. Gauge \T\ site: 20g RAC. 00:06 Patient arrived in ED. wm 00:07 Eduardo Bill MD is Attending Physician. rn 00:11 Triage completed. lp1 00:13 Patient has correct armband on for positive identification. Bed in low position. Call lp1 light in reach. Side rails up X2. Seizure precautions initiated. radiation monitor on. Pulse ox on. NIBP on. 00:18 Blanche Starkey, RN is Primary Nurse. kd3 00:30 Arm band placed on right wrist. kd3 00:56 CT Head Brain wo Cont In Process Unspecified. EDMS 03:55 patient self removed IV. sf1 Administered Medications: 01:01 Drug: Keppra (levETIRAcetam) 1000 mg Route: IV; Rate: calculated rate; Site: right kd3 antecubital; 04:04 Follow up: Response: No adverse reaction; Rate change 100 ml; IV Status: Completed kd3 infusion 01:12 Drug: NS 0.9% 1000 ml Route: IV; Rate: 1000 ml; Site: right antecubital; kd3 04:04 Follow up: IV Status: Completed infusion kd3 03:54 Drug: metroNIDAZOLE 2 grams Route: PO; sf1 04:04 Follow up: Response: No adverse reaction kd3 Outcome: 03:44 Discharge ordered by MD. rn 03:55 Discharged to home ambulatory. sf1 03:55 Condition: stable 03:55 Condition: stable 03:55 Discharge instructions given to patient, Instructed on discharge instructions, follow up and referral plans. Demonstrated understanding of instructions, follow-up care, medications. 04:18 Patient left the ED. sf1 Signatures: Dispatcher [employer] EDNJ Eduardo Bill MD MD rn Pena, Laura RN RN lp1 Jada Zamarripa Blanche Starkey, MIESHA RN kd3 Samina German RN RN sf1
[2021-06-02] MEDS ORDERED: metroNIDAZOLE 500 MG TABLET ONE (03:52)
[2021-06-02 05:43] VITALS: O2SAT 100
[2021-06-02 05:45] VITALS: BP 130/87
--- NOTE | 2021-06-03 11:54 | RAD REPORT ---
EXAM DESCRIPTION: CT - Head Brain Wo Cont - 06/02/2021 6:39 am CLINICAL HISTORY: The patient is 20 years old and is Female; SEIZURE TECHNIQUE: Axial computed tomography images of the head/brain without intravenous contrast. Sagitt al and coronal reformatted images were created and reviewed. This CT exam was performed using one o r more of the following dose reduction techniques: automated exposure control, adjustment of the mA and/or kV according to patient size, and/or use of iterative reconstruction technique. COMPARISON: No relevant prior studies available. FINDINGS: Brain: Unremarkable. No hemorrhage. No significant white matter disease. No edema. Ventricles: Unremarkable. No ventriculomegaly. Bones/joints: Unremarkable. No acute fracture. Soft tissues: Unremarkable. Sinuses: Unremarkable as visualized. Mastoid air cells: Unremarkable as visualized. No mastoid effusion. IMPRESSION: No acute intracranial abnormality. Electronically signed by: Martín Kim MD 06/02/2021 1:09 AM CARDIOVASCULAR INVASIVE SPECIALIST Due to temporary technical issues with the PACS/Fluency reporting system, reports are being signed by the in house radiologist without review as a courtesy to ensure prompt reporting. The interpreting r adiologist is fully responsible for the content of the report.
== END 2021-06-02 04:18 | disposition home or self-care (01) ==
LOC: ER 00:05
DX: G40.509 Epileptic seizures related to external causes, not intractable, without status epilepticus (principal); Z91.018 Allergy to other foods
CPT/HCPCS: 96365; 93005; 87088; 85025; 87086; 80048; 36415; 80307; 70450; 99284; 96366; J1953; J7030; 81003; 81015

== ENCOUNTER 2021-06-11 00:30 | Emergency (ER) | payer OTHER ==
[2021-06-11] MEDS ORDERED: NA CHLORIDE 0.9% 1,000 ML ONE (00:52)
--- OUTSIDE RECORDS SUMMARY | 2021-06-11 01:19 | XMS REPORT | Continuity of Care Document ---
:2000 Author Organization [facility] t Address [address] [place] [address] Care Team Providers Name Role Phone PCP, [...] Number Effective Date Expiration Date Courtney JONES [id number] 2019 00:00:00 [place] [facility] [id number] 2017 HEALTH 00:00:00 Problems Condition Condition Condition [...] rs active active ity of problems problems [facility] Allergies, Adverse Reactions, Alerts Allergy Allergy Status Severity Reaction(s) Onset Inactive Treating Comm ents Source Name Type Date Date Clinician Cameron Propensi Active Hives Univers And ty to [...] Quantity Comments Source Exposure to Not sure [facility] SARS-CoV-2 (event) [facility] Tobacco use and 2017-11-19 2017-11-19 Never used [facility] exposure 00:00:00 00:00:00 Medical [place] Sex Assigned At 2000 2001 [facility] 00:00:00 00:00:00 Medical Branch Smoking Status Start Date Stop Date Source Never smoker [facility] Medications Ordered Filled Start Stop Current Ordering Indication Dosage Frequency Signature Comments Components Source Medication Medication Date Date Medication? Clinician (SIG) Name Name Potassium Yes 40meq 40 mEq, Univ ers Bicarb-Citr 12-04 Oral, ity of ic Acid 14:00: DAILY, [place] (EFFER-K) 00 First dose Medi lilibeth effervescen on Thu [place] t tablet 40 12/04/20 at mEq 0900, Until Discontinu ed, Routine Potassium Yes 40meq 40 mEq, Univ ers Bicarb-Citr 9-14 Oral, ity of ic Acid 14:00: DAILY, [place] (EFFER-K) 00 First dose Medi lilibeth effervescen on Thu t tablet 40 12/04/20 at mEq 0900, Until Discontinu ed, Routine prazosin Yes 1mg 1 mg, Univers (MINIPRES) 9-14 Oral, QHS, ity of capsule 1 02:00: [place] 00 on [facility] 12/03/20 at [place] 2100, Until Discontinu ed, Routine prazosin Yes 1mg 1 mg, Univers (MINIPRES) 9-14 Oral, QHS, ity of capsule 1 02:00: [place] 00 on [facility] 12/03/20 at [place] 2100, Until Discontinu ed, Routine vitamin 2020- No [id number] 1000ug Take 1 U nivers B-12 1,000 9-14 10-15 tablet by ity of mcg tablet 00:00: 04:59 mouth [place] 00 :00 daily for Medical 30 days. [place] vitamin 2020- No [id number] 1000ug Take 1 U nivers B-12 1,000 -14 10-15 tablet by ity of mcg tablet 00:00: 04:59 mouth [place] 00 :00 daily for Medical 30 days. [place] gadoteridol 2020- No [id number] .2mL/kg 11.8 mL Univers (PROHANCE-1 12-03 (0.2 mL/kg i ty of 5 mL) 17:00: 17:00 ?59 kg), [place] injection 00 :00 Intravenou Medi lilibeth 11.8 mL s, ONCE, 1 Branch dose, On [facility] 12/03/20 at 1200, Routine gadoteridol 2020- No [id number] .2mL/kg 11.8 mL Univers (PROHANCE-1 12-03 (0.2 mL/kg i ty of 5 mL) 17:00: 17:00 ?59 kg), [place] injection 00 :00 Intravenou Medi lilibeth 11.8 mL s, ONCE, 1 Branch dose, On [facility] 12/03/20 at 1200, Routine vitamin Yes 1000ug 1,000 mcg, Un spring B-12 12-03 Oral, ity of (CYANOCOBAL 14:00: DAILY[place] RAM[place] 00 First dose Medical tablet on Mon Branch 1,000 mcg 12/03/20 at 0900, Until Discontinu ed, Routine pantoprazol Yes 40mg 40 mg, [facility] ers e 12-03 Oral, ity of (PROTONIX) 14:00: DAILY, [place] EC tablet 00 First dose Medi lilibeth 40 mg on Thu Branch 12/03/20 at 0900, Until Discontinu ed, Routine vitamin 0 Yes 1000ug 1,000 mcg, Un spring B-12 12-03 Oral, ity of (CYANOCOBAL 14:00: DAILY, [place] RAM[place] 00 First dose Medical tablet on [facility] Branch 1,000 mcg 12/03/20 at 0900, Until Discontinu ed, Routine pantoprazol Yes 40mg 40 mg, Univ ers e 12-03 Oral, ity of (PROTONIX) 14:00: DAILY, [place] EC tablet 00 First dose Medi lilibeth 40 mg on [facility] Branch 12/03/20 at 0900, Until Discontinu ed, Routine potassium 2020- No 20meq 20 mEq, IV Univers chloride 20 12-03 Piggyback, i ty of mEq/100 mL 13:00: 16:59 Q2H, 2 [place] (KCL) 20 00 :00 doses, Medical mEq/100 mL First dose [facility] RTU IVPB 20 on Thu mEq 12/03/20 at 0800, Last dose on Thu12/03/20 at 1000, 100 mL potassium 2020- No 20meq 20 mEq, IV Univers chloride 20 12-03 Piggyback, i ty of mEq/100 mL 13:00: 16:59 Q2H, 2 [place] (KCL) 20 00 :00 doses, Medical mEq/100 mL First dose [facility] RTU IVPB 20 on Thu mEq 12/03/20 at 0800, Last dose on Thu12/03/20 at 1000, 100 mL ciprofloxac 2020-2020- No [id number] 500mg Take 1 Univers in HCl 500 12-03 tablet by ity of mg tablet 00:00: 04:59 mouth [place] 00 :00 every 12 Medical (twelve) Branch hours for 7 days. ciprofloxac 2020- No [id number] 500mg Take 1 Univers in HCl 500 12-03 tablet by ity of mg tablet 00:00: 04:59 mouth [place] 00 :00 every 12 Medical (twelve) Branch hours for 7 days. enoxaparin Yes 40mg 40 mg, Unive rs (LOVENOX) 12-02 Subcutaneo ity of injection 22:00: us, DAILY, [place] 40 mg 00 First dose Medical on [facility] 12/02/20 at 1700, Until Discontinu ed, Routine enoxaparin Yes 40mg 40 mg, Unive rs (LOVENOX) 12-02 Subcutaneo ity of injection 22:00: us, DAILY, [place] 40 mg 00 First dose Medical on [facility] 12/02/20 at 1700, Until Discontinu ed, Routine gadoteridol 2020- No [id number] .2mL/kg 11.8 mL Univers (PROHANCE-1 12-02 (0.2 mL/kg i ty of 5 mL) 17:45: 17:45 ?59 kg), [place] injection 00 :00 Intravenou Medi lilibeth 11.8 mL s, ONCE, 1 Branch dose, On [place] 12/02/20 at 1245, Routine gadoteridol 2020- No [id number] .2mL/kg 11.8 mL Univers (PROHANCE-1 12-02 (0.2 mL/kg i ty of 5 mL) 17:45: 17:45 ?59 kg), [place] injection 00 :00 Intravenou Medi lilibeth 11.8 mL s, ONCE, 1 Branch dose, On [place] 12/02/20 at 1245, Routine cefTRIAXone Yes 1000mg 1,000 mg, Univers (ROCEPHIN) 12-02 IV ity of 1,000 mg in 16:30: Piggyback, [place] NaCl 0.9% 00 Q24H ABX, Medic al (NS) 50 mL First dose [facility] MINI-BAG on [place] 12/02/20 at 1130, Until Discontinu ed, Administer over 30 Minutes, 50 mL
Reas on for Anti-Infec tive: Documented Infection< br>Documen carole Infection Site: Urine
D uration of Therapy: 7 days cefTRIAXone 0 Yes 1000mg 1,000 mg, Univers (ROCEPHIN) 9-12 IV ity of 1,000 mg in 16:30: Piggyback, [place] NaCl 0.9% 00 Q24H ABX, Medic al (NS) 50 mL First dose [facility] MINI-BAG on [place] 12/02/20 at 1130, Until Discontinu ed, Administer over 30 Minutes, 50 mL
Reas on for Anti-Infec tive: Documented Infection< br>Documen carole Infection Site: Urine
D uration of Therapy: 7 days NaCl 0.9% 0 Yes 1000mL at 50 Unive rs (NS) IV 9-12 mL/hr, IV ity of infusion 15:30: Infusion, [place] 1,000 mL 00 CONTINUOUS Medic al , Starting Branch on [place] 12/02/20 at 1030, Until Discontinu ed, Routine NaCl 0.9% 0 Yes 1000mL at 50 Unive rs (NS) IV 9-12 mL/hr, IV ity of infusion 15:30: Infusion, [place] 1,000 mL 00 CONTINUOUS Medic al , Starting Branch on [place] 12/02/20 at 1030, Until Discontinu ed, Routine acetaminoph 0 Yes 650mg 650 mg, Un spring en 12 Oral, ity of (TYLENOL) 15:19: Q6HPRN, [place] tablet 650 42 Starting Medic al mg on [facility] 12/02/20 at 1019, Until Discontinu ed, Routine, Pain (scale 4-6) docusate 0 Yes 100mg 100 mg, Unive rs (COLACE) 912 Oral, ity of capsule 100 15:19: QDAILYPRN, [place] mg 42 Starting Medical on [facility] 12/02/20 at 1019, Until Discontinu ed, Routine, Constipati on acetaminoph 0 Yes 650mg 650 mg, Un spring en 9-12 Oral, ity of (TYLENOL) 15:19: Q6HPRN, [place] tablet 650 42 Starting Medic al mg on [facility] 12/02/20 at 1019, Until Discontinu ed, Routine, Pain (scale 4-6) docusate Yes 100mg 100 mg, Unive rs (COLACE) 12-02 Oral, ity of capsule 100 15:19: QDAILYPRN, [place] mg 42 Starting Medical on [facility] 12/02/20 at 1019, Until Discontinu ed, Routine, Constipati on midazolam 2020- No 1mg 1 mg, IV Uni vers (VERSED) 12-02 Push, ity of injection 1 11:15: 10:15 ONCE, 1 [place] mg 00 :00 dose, [facility] 12/02/20 at Branch 0615, STAT midazolam 2020-0 2020- No 1mg 1 mg, IV Uni vers (VERSED) 12-02 Push, ity of injection 1 11:15: 10:15 ONCE, 1 [place] mg 00 :00 dose, [facility] 12/02/20 at [place] 0615, STAT midazolam 2020-2020- No 1mg 1 mg, IV Uni vers (VERSED) 12-02 Push, ity of injection 1 10:45: 09:30 ONCE, 1 [place] mg 00 :00 dose, [facility] 12/02/20 at Branch 0545, STAT midazolam 2020-2020- No 1mg 1 mg, IV Uni vers (VERSED) 12-02 Push, ity of injection 1 10:45: 09:30 ONCE, 1 [place] mg 00 :00 dose, [facility] 12/02/20 at Branch 0545, STAT NaCl 0.9% Yes 1000mL at 125 Univ ers (NS) IV 9-12 mL/hr, IV ity of infusion 10:00: Infusion, [place] 1,000 mL 00 CONTINUOUS Medic al , Starting [facility] 12/02/20 at 0500, Until Discontinu ed, Routine NaCl 0.9% 0 Yes 1000mL at 125 Univ ers (NS) IV 9-12 mL/hr, IV ity of infusion 10:00: Infusion, [place] 1,000 mL 00 CONTINUOUS Medic al , Starting [facility] 12/02/20 at 0500, Until Discontinu ed, Routine ondansetron Yes 4mg 4 mg, Slow Univers (ZOFRAN 12-02 IV Push, ity of (PF)) 09:52: Q6HPRN, [place] injection 4 57 Starting Medi lilibeth mg [facility] 12/02/20 at 0452, Until Discontinu ed, Routine, Nausea and Vomiting (N/V) ondansetron 2020-0 Yes 4mg 4 mg, Slow Univers (ZOFRAN 12-02 IV Push, ity of (PF)) 09:52: Q6HPRN, [place] injection 4 57 Starting Medi lilibeth mg [facility] 12/02/20 at 0452, Until Discontinu ed, Routine, Nausea and Vomiting (N/V) acetaminoph 1-0 Yes 650mg 650 mg, Un spring en 12 Oral, ity of (TYLENOL) 09:52: Q6HPRN, [place] tablet 650 44 Starting Medic al mg [facility] 12/02/20 at 0452, Until Discontinu ed, Routine, Pain (scale 1-3), Temp > 38.5 C acetaminoph 2020-0 Yes 650mg 650 mg, Un spring en 12-02 Oral, ity of (TYLENOL) 09:52: Q6HPRN, [place] tablet 650 44 Starting Medic al mg [facility] 12/02/20 at 0452, Until Discontinu ed, Routine, Pain (scale 1-3), Temp > 38.5 C NaCl 0.9% 2020- No 1000mL at 999 Uni vers (NS) bolus 12-02 mL/hr, ity of infusion 09:00: 10:23 1,000 mL, [place] 1,000 mL 00 :[facility], [facility] dose, [place] 12/02/20 at 0400, STAT NaCl 0.9% 2020- No 1000mL at 999 Uni vers (NS) bolus 12-02 mL/hr, ity of infusion 09:00: 10:23 1,000 mL, [place] 1,000 mL 00 :00 IV Medical Piggyback, [place] ONCE, 1 dose, [place] 12/02/20 at 0400, STAT cefTRIAXone 2020-2020- No 1000mg 1,000 mg, Univers (ROCEPHIN) 12-02 IV ity of 1,000 mg in 08:45: 08:24 [place], [place] NaCl 0.9% 00 :00 ONCE, 1 Medical (NS) 50 mL dose, [place] Bran ch MINI-BAG 12/02/20 at 0345, Administer over 30 Minutes, 50 mL
R fabio for Anti-Infec tive: Documented Infection< br>Documen carole Infection Site: Urine
D uration of Therapy: 7 days cefTRIAXone 2020-2020- No 1000mg 1,000 mg, Univers (ROCEPHIN) 12-02 IV ity of 1,000 mg in 08:45: 08:24 Piggyback, [place] NaCl 0.9% 00 :00 ONCE, 1 Medical (NS) 50 mL dose, [place] Bran ch MINI-BAG 12/02/20 at 0345, Administer over 30 Minutes, 50 mL
R fabio for Anti-Infec tive: Documented Infection< br>Documen carole Infection Site: Urine
D uration of Therapy: 7 days midazolam 2020-2020- No 1mg 1 mg, IV Uni vers (VERSED) 12-02 Push, ity of injection 1 07:15: 06:42 ONCE, 1 [place] mg 00 :00 dose, [facility] 12/02/20 at Branch 0215, STAT midazolam 2020-2020- No 1mg 1 mg, IV Uni vers (VERSED) 12-02 Push, ity of injection 1 07:15: 06:42 ONCE, 1 [place] mg 00 :00 dose, [facility] 12/02/20 at Branch 0215, STAT NaCl 0.9% 2020- No 500mL at 999 Univ ers (NS) bolus 12-02 mL/hr, 500 it y of infusion 07:00: 07:12 mL, IV [place] 500 mL 00 :00 Piggyback, [facility] ONCE, 1 Branch dose, [place] 12/02/20 at 0200, STAT NaCl 0.9% 2020-2020- No 500mL at 999 Univ ers (NS) bolus 12-02 mL/hr, 500 it y of infusion 07:00: 07:12 mL, IV [place] 500 mL 00 :00 Piggyback, Medical ONCE, 1 Branch dose, [place] 12/02/20 at 0200, STAT cefTRIAXone 2020-0 2021- No 1000mg 1,000 mg, Univers (ROCEPHIN) 11-30 IV ity of 1,000 mg in :30: 07:03 [place], [place] NaCl 0.9% 00 :00 ONCE, 1 Medical (NS) 50 mL dose, Fri Bran ch MINI-BAG 11/30/20 at 0230, Administer over 30 Minutes, 50 mL
R fabio for Anti-Infec tive: Documented Infection< br>Documen carole Infection Site: Urine
D uration of Therapy: Other (see Comments) cefTRIAXone 2020- No 1000mg 1,000 mg, Univers (ROCEPHIN) 11-30 IV ity of 1,000 mg in :30: 07:03 [place], [place] NaCl 0.9% 00 :00 ONCE, 1 Medical (NS) 50 mL dose, Fri Bran ch MINI-BAG 11/30/20 at 0230, Administer over 30 Minutes, 50 mL
R fabio for Anti-Infec tive: Documented Infection< br>Documen carole Infection Site: Urine
D uration of Therapy: Other (see Comments) Nitrofurant Yes [id number] 100mg Take 1 Univers oin&Nit. 9-10 capsule by ity o f [place]roc[place] 00:00: mouth 2 [place] (MACROBID) 00 (two) Medical 100 mg times Branch capsule daily. Nitrofurant Yes [id number] 100mg Take 1 Univers oin&Nit. 9-10 capsule by ity o f Macrocryst 00:00: mouth 2 [place] (MACROBID) 00 (two) Medical 100 mg times Branch capsule daily. Nitrofurant Yes [id number] 100mg Take 1 Univers oin&Nit. 9-10 capsule by ity o f Macrocryst 00:00: mouth 2 [place] (MACROBID) 00 (two) Medical 100 mg times Branch capsule daily. Nitrofurant Yes [id number] 100mg Take 1 Univers oin&Nit. 9-10 capsule by ity o f Macrocryst 00:00: mouth 2 [place] (MACROBID) 00 (two) Medical 100 mg times Branch capsule daily. Nitrofurant Yes [id number] 100mg Take 1 Univers oin&Nit. 9-10 capsule by ity o f [place] 00:00: mouth 2 [place] (MACROBID) 00 (two) Medical 100 mg times Branch capsule daily. Nitrofurant Yes [id number] 100mg Take 1 Univers oin&Nit. 9-10 capsule by ity o f [place] 00:00: mouth 2 [place] (MACROBID) 00 (two) Medical 100 mg times Branch capsule daily. Nitrofurant Yes [id number] 100mg Take 1 Univers oin&Nit. 9-10 capsule [...] 3-11 affected ity of cream 00:00: area(s) [place] 00 daily. Medical Branch hydrocortis 2015- Yes Apply to U nivers one 1 % 3-11 affected ity of cream 00:00: area(s) [place] 00 daily. Medical Branch hydrocortis 2015- Yes [...] 00 daily. Medical Branch crotamiton 2016-0 Yes [id number] After warm Univers (EURAX) 10 3-08 bath apply ity of % lotion 00:00: lotion to [place] 00 entire Medical body Branch excluding face and scalp. Repeat in 24 hours. cetirizine 2015- Yes [id number] 10mg Take 1 Tab Univers (ZYRTEC) 10 3-08 by mouth ity of mg tablet 00:00: at bedtime [place] 00 as needed Medical for Other Branch (itching). crotamiton 0 Yes [id number] After warm Univers (EURAX) 10 3-08 bath apply ity of % lotion 00:00: lotion to [place] 00 entire Medical body Branch excluding face and scalp. Repeat in 24 hours. cetirizine 2015-0 Yes [id number] 10mg Take 1 Tab Univers (ZYRTEC) 10 3-08 by mouth ity of mg tablet 00:00: at bedtime [place] 00 as needed Medical for Other Branch (itching). crotamiton 2015-0 Yes [id number] After warm Univers (EURAX) 10 3-08 bath apply ity of % lotion 00:00: lotion to [place] 00 entire Medical body Branch excluding face and scalp. Repeat in 24 hours. cetirizine 2015-0 Yes [id number] 10mg Take 1 Tab Univers (ZYRTEC) 10 3-08 by mouth ity of mg tablet 00:00: at bedtime [place] 00 as needed Medical for Other Branch (itching). crotamiton 2015-0 Yes [id number] After warm Univers (EURAX) 10 3-08 bath apply ity of % lotion 00:00: lotion to [place] 00 entire Medical body Branch excluding face and scalp. Repeat in 24 hours. cetirizine Yes [id number] 10mg Take 1 Tab Univers (ZYRTEC) 10 3-08 by mouth ity of mg tablet 00:00: at bedtime [place] 00 as needed Medical for Other Branch (itching). crotamiton Yes [id number] After warm Univers (EURAX) 10 3-08 bath apply ity of % lotion 00:00: lotion to [place] 00 entire Medical body Branch excluding face and scalp. Repeat in 24 hours. cetirizine Yes [id number] 10mg Take 1 Tab Univers (ZYRTEC) 10 3-08 by mouth ity of mg tablet 00:00: at bedtime [place] 00 as needed Medical for Other Branch (itching). crotamiton Yes [id number] After warm Univers (EURAX) 10 3-08 bath apply ity of % lotion 00:00: lotion to [place] 00 entire Medical body Branch excluding face and scalp. Repeat in 24 hours. cetirizine Yes [id number] 10mg Take 1 Tab Univers (ZYRTEC) 10 3-08 by mouth ity of mg tablet 00:00: at bedtime [place] 00 as needed Medical for Other Branch (itching). crotamiton Yes [id number] After warm Univers (EURAX) 10 3-08 bath apply ity of % lotion 00:00: lotion to [place] 00 entire Medical body Branch excluding face and scalp. Repeat in 24 hours. cetirizine Yes [id number] 10mg Take 1 Tab Univers (ZYRTEC) 10 3-08 by mouth ity of mg tablet 00:00: at bedtime [place] 00 as needed Medical for Other Branch (itching). crotamiton Yes [id number] After warm Univers (EURAX) 10 3-08 bath apply ity of % lotion 00:00: lotion to [place] 00 entire Medical body Branch excluding face and scalp. Repeat in 24 hours. cetirizine Yes [id number] 10mg Take 1 Tab Univers (ZYRTEC) 10 3-08 by mouth ity of mg tablet 00:00: at bedtime [place] 00 as needed Medical for Other Branch (itching). crotamiton Yes [id number] After warm Univers (EURAX) 10 3-08 bath apply ity of % lotion 00:00: lotion to [place] 00 entire Medical body Branch excluding face and scalp. Repeat in 24 hours. cetirizine Yes [id number] 10mg Take 1 Tab Univers (ZYRTEC) 10 3-08 by mouth ity of mg tablet 00:00: at bedtime [place] 00 as needed Medical for Other Branch (itching). crotamiton Yes [id number] After warm Univers (EURAX) 10 3-08 bath apply ity of % lotion 00:00: lotion to [place] 00 entire Medical body Branch excluding face and scalp. Repeat in 24 hours. cetirizine Yes [id number] 10mg Take 1 Tab Univers (ZYRTEC) 10 [...] Immunizations Ordered Filled Immunization Date Status Comments [facility] e Immunization Name Name HPV9 2015-05-17 Completed University of 00:00:00 [facility] HPV9 2015-05-17 Completed University of 00:00:00 [facility] HPV9 2015-05-17 Completed University of 00:00:00 [facility] HPV9 2015-05-17 Completed University of 00:00:00 [facility] HPV9 2015-05-17 Completed University of 00:00:00 [facility] HPV9 2015-05-17 Completed University of 00:00:00 [facility] HPV9 2015-05-17 Completed University of 00:00:00 [facility] HPV9 2015-05-17 Completed University of 00:00:00 [facility] HPV9 2015-05-17 Completed University of 00:00:00 [facility] HPV9 2015-05-17 Completed University of 00:00:00 [facility] Varicella 2015-01-16 Completed University of (varivax)(chicken 00:00:00 [...] y of Vaccine Quad IM 3+ 00:00:00 [facility] Influenza Virus 2014-12-27 Completed Universit y of Vaccine Quad IM 3+ 00:00:00 [facility] Influenza Virus 2014-12-27 Completed Universit y of Vaccine Quad IM 3+ 00:00:00 [facility] Influenza Virus 2014-12-27 Completed Universit y of Vaccine Quad IM 3+ 00:00:00 [facility] Influenza Virus 2014-12-27 Completed Universit y of Vaccine Quad IM 3+ 00:00:00 [facility] Influenza Virus 2014-12-27 Completed Universit y of Vaccine Quad IM 3+ 00:00:00 [facility] Influenza Virus 2014-12-27 Completed Universit y of Vaccine Quad IM 3+ 00:00:00 [facility] Influenza Virus 2014-12-27 Completed Universit y of Vaccine Quad IM 3+ 00:00:00 [facility] Influenza Virus 2014-12-27 Completed Universit y of Vaccine Quad IM 3+ 00:00:00 [facility] Influenza Virus 2014-12-27 Completed Universit y of Vaccine Quad IM 3+ 00:00:00 [facility] Vital Signs Vital Name Observation Time Observation Value Comments Source Systolic blood 2020-12-04 12:43:00 118 mm[Hg] Univer sity of [facility] Diastolic blood 2020-12-04 12:43:00 65 mm[Hg] Unive rsity of [facility] Heart rate 2020-12-04 12:43:00 69 /min [facility] Body temperature 2020-12-04 12:43:00 36.5 Latoya [facility] 2020-12-04 12:43:00 15 /min [facility] Oxygen saturation in 2020-12-04 12:43:00 97 /min [facility] Arterial blood by [facility] Pulse oximetry [place] Body height 2020-12-02 23:01:00 162.6 cm [facility] Body weight 2020-12-02 23:01:00 58.968 kg [facility] BMI 2020-12-02 23:01:00 22.31 kg/m2 [facility] Body mass index 2020-12-02 23:01:00 58.99 % Unive rsity of (BMI) [Percentile] [facility] ica Per age and sex Branch Systolic blood 2020-12-02 11:00:00 104 mm[Hg] Univer sity of [place] Diastolic blood 2020-12-02 11:00:00 71 mm[Hg] Unive rsity of pressure [facility] Heart rate 2020-12-02 11:00:00 74 /min [facility] Respiratory rate 2020-12-02 11:00:00 18 /min Univ ersity of [place] [facility] Oxygen saturation in 2020-12-02 11:00:00 98 /min University of Arterial blood by [facility] Pulse oximetry Branch Body temperature 2020-12-02 05:55:00 36.44 Latoya Univ ersity [facility] [place] [facility] Body height 2020-12-02 05:55:00 162.6 cm [facility] [place] [facility] Body weight 2020-12-02 05:55:00 58.968 kg [facility] [place] [facility] BMI 2020-12-02 05:55:00 22.31 kg/m2 [facility] [place] [facility] Systolic blood 2020-11-30 08:00:00 100 mm[Hg] Univer sity of pressure [place] [facility] Diastolic blood 2020-11-30 08:00:00 66 mm[Hg] Unive rsity of pressure [place] [facility] Heart rate 2020-11-30 08:00:00 55 /min [facility] [place] [facility] Respiratory rate 2020-11-30 08:00:00 14 /min Univ ersity [facility] [place] [facility] Oxygen saturation in 2020-11-30 08:00:00 100 /min University of Arterial blood by [facility] Pulse oximetry Branch Body height 2020-11-30 05:22:00 162.6 cm [facility] [place] [facility] Body weight 2020-11-30 05:22:00 58.968 kg [facility] [place] [facility] BMI 2020-11-30 05:22:00 22.31 kg/m2 [facility] [place] [facility] Body temperature 2020-11-30 05:10:00 36.44 Latoya Univ ers[facility] [place] [facility] Body temperature 2019-05-29 05:43:00 36.61 Latoya Univ ersity [facility] [place] [facility] Systolic blood 2019-05-29 04:50:00 118 mm[Hg] Univer sity of pressure [place] [facility] Diastolic blood 2019-05-29 04:50:00 86 mm[Hg] Unive rsity of pressure [place] [facility] Heart rate 2019-05-29 04:50:00 61 /min [facility]i [facility] [place] [facility] Respiratory rate 2019-05-29 04:50:00 18 /min Univ ersity of [place] [facility] Oxygen saturation in 2019-05-29 04:50:00 99 /min [place] of Arterial blood by [facility] Pulse oximetry Branch Body weight 2019-05-29 02:56:37 70.308 kg [facility] Body temperature 2019-05-29 05:43:00 36.61 Latoya [facility] Systolic blood 2019-05-29 04:50:00 118 mm[Hg] Univer sity of pressure [facility] Diastolic blood 2019-05-29 04:50:00 86 mm[Hg] Unive rsity of pressure [facility] Heart rate 2019-05-29 04:50:00 61 /min [facility] Respiratory rate 2019-05-29 04:50:00 18 /min [facility] Oxygen saturation in 2019-05-29 04:50:00 99 /min [facility] Arterial blood by [facility] Pulse oximetry [place] Body weight 2019-05-29 02:56:37 70.308 kg [facility] Procedures Procedure Date / Time Performing Source Performed Clinician MR BRAIN W WO CONTRAST [facility] GALV ONLY - SYPHILIS IGG/IGM 2020-12-03 Jose Martin [facility] 09:57:00 [facility] ELECTROENCEPHALOGRAM 2020[facility]12-03 [facility] MR LUMBAR SPINE W WO CONTRAST 2020-12-02 Marquez Philippe [facility] 17:43:[address] [place] [address] LUMBAR SPINE WO CONTRAST 2020-12-02 Marquez Philippe [facility] 16:47:15 Medical Branch PHOSPHORUS 2020-12-02 Jose Martin [facility] xas 16:10:00 Medical Branch CREATINE KINASE 2020-[facility]-02 [facility] MAGNESIUM 2020-12-02 [facility] 16:10[facility]00 [facility] VITAMIN B12, LEVEL 2020-12-02 Jose Martin [facility] 16:10:00 Medical Branch FOLATE 2020-12-02 [facility] BASIC METABOLIC PANEL (NA, K, 2020-12-02 Marquez Philippe [facility] CL, CO2, GLUCOSE, BUN, 16:10:00 Medical B ranch CREATININE, CA) CBC WITH DIFF 2020-12-02 Jose Martin [facility] xa 16:10:00 [facility] HIV 1/2 AG-AB WITH REFLEX 2020-12-02 Marquez Philippe [facility] 16:10:[address] ABDOMEN PELVIS WO CONTRAST 2020-12-02 Jermain Ghosh [facility] 08:43:26 [facility] CREATINE KINASE 2020-12-02 Sj [facility] x[place] 07:13:00 [facility] COMP. METABOLIC PANEL (99404) 2020-12-02 Jermain Ghosh [facility] 07:13:00 [facility] THYROID STIMULATING HORMONE 2020-12-02 Jose Martin [facility] 07:13:00 [facility] POCT TEST 2020-12-02 Sj [facility] [place] 06:36:00 [facility] COVID-19 (ID NOW RAPID 2020-12-02 Sj [facility] TESTING) 06:35:00 [facility] URINE DRUG (IMMUNOASSAY) - 2020-12-02 Sj [facility] COMPREHENSIVE DRUG SCREEN W/O 06:32:00 Sd dical Branch REFLEX URINALYSIS 2020-12-02 Sj [facility] x[facility] 06:31:00 [facility] CBC WITH DIFF 2020-12-02 Sj [facility] x[facility] 06:15:00 [facility] LACTIC ACID WHOLE BLOOD 2020-12-02 Jermain Ghosh [facility] 06:14:00 [facility] NOTICE OF PRIVACY PRACTICES 2020-12-02 Doctor Unassigned, [facility] 05:51:23 [place] [facility] CONSENT/REFUSAL FOR DIAGNOSIS 2020-12-02 Doctor Unassigned, [facility] AND TREATMENT 05:51:04 [place] [facility] [place] CT HEAD WO CONTRAST 2020-11-30 Chauncey Smith [facility] 06:48:07 [facility] POCT GLUCOSE(AGE >30DAYS) 2020-11-30 Chauncey Smith [facility] 05:31:00 Medical Branch AC PANEL 20 + LACTIC ACID 2020-11-30 Chauncey Smith [facility] 05:31:00 Medical Branch POCT GLUCOSE (AUTOMATED) 2020-11-30 Chauncey Smith [facility] 05:30:00 Medical Branch POCT TEST 2020-11-30 Chauncey Smith [facility] 05:26:00 [facility] URINE DRUG (IMMUNOASSAY) - 2020-11-30 Chauncey Smith [facility] COMPREHENSIVE DRUG SCREEN 05:25:00 Medica l [place] URINALYSIS 2020-11-30 Chauncey Smith [facility] ex 05:25:00 Medical Branch COVID-19 (ID NOW RAPID 2020-11-30 Chauncey Smith [facility] TESTING) 05:25:00 Medical Branch MAGNESIUM 2020-11-30 Chauncey Smith [facility] ex 05:16:00 Medical Branch COMP. METABOLIC PANEL (53984) 2020-11-30 Chauncey Smith [facility] 05:16:00 Medical Branch CBC WITH DIFF 2020-11-30 Chauncey Smith [facility] 05:16:00 Medical Branch CREATINE KINASE 2020-11-30 Chauncey Smith [facility] 05:15:00 [facility] NOTICE OF PRIVACY PRACTICES 2020-11-30 Doctor Unassigned, [facility] 05:01:00 [place] [facility] CT HEAD WO CONTRAST 2019-05-29 Alec Rivera [facility] 04:16:04 Medical Branch XR CERVICAL SPINE 3 VW 2019-05-29 Alec Rivera [facility] 04:15:52 Medical [place] NOTICE OF PRIVACY PRACTICES 2019-05-29 Doctor Unassigned, [facility] 03:47:53 [place] [facility] CONSENT/REFUSAL FOR DIAGNOSIS 2019-05-29 Doctor Unassigned, [facility] AND TREATMENT 03:47:41 [place] [facility] Encounters Start End Encounter Admission Attending Care Care Encounter Source Date/Time Date/Time Type Type Clinicians Facility Department ID 2021-01-21 Emergency X [facility] [id number] Univers 22:04:01 [facility]y of [facility] 2021-01-21 Emergency [facility] [id number] Univers 22:03:07 ity of [facility] 2021-01-21 Emergency [facility] [id number] Univers 21:40:40 ity of [facility] 2020 2020 Outpatient BRADY GOTTLIEB [facility] [id number] Univers 15:00:00 15:00:00 SARAHBRADY [id number] ity of [facility] 2020 2020 Outpatient BRADY GOTTLIEB [facility] [id number] Univers 15:00:00 15:00:00 SARAHBRADY Salas ity [facility] 2020-12-02 2020-12-04 Emergency [place] [id number] Univers 09:18:00 10:50:00 Lazaro Mckeon 350.1.13.[address] [facility] 4.2.7.2.686 Tram[place] [id number] [place] [id number] Branch 2020-12-02 2020-12-02 Emergency AlvarezJanine mcgrath [facility] [id number] Univers 00:47:00 09:12:00 Jermain Ghosh 350.1.13.10 ity Nicholas Carrion 4.2.7.2.686 [facility] [id number] [place] [address] Branch 2020-12-02 2020-12-02 Outpatient X SJ [facility] [id number] Univers 00:47:00 09:12:00 JERMAIN ity of [facility] 2020-11-30 2020-11-30 Emergency Luis [facility] [id number] Univers 00:08:00 04:02:00 Chauncey Farrell [id number] ity [place] 4.2.7.2.686 [facility] [id number] [place] 165414 Branch 2020-11-30 2020-11-30 Orders Doctor FREGOSO [id number] Univers 00:00:00 00:00:00 Only Unassigned, JOSE [id number] [facility]y [facility] 4.2.7.2.686 Tramaine [id number] [facility] 009 Branch 2019-06-15 2019-06-15 Outpatient R [facility] [id number] Univers 10:00:00 10:00:00 [id number] ity of [facility] 2019-06-15 2019-06-15 Outpatient R [facility] [id number] Univers 10:00:00 10:00:00 ity of [facility] 2019-06-15 2019-06-15 Outpatient R [facility] [id number] Univers 10:00:00 10:00:00 ity of [facility] 2019-06-15 2019-06-15 Telephone de [facility] [id number] Univers 00:00:00 00:00:00 Marcos Lerma [id number] ity of [facility] 4.2.7.2.686 [place] [facility] [id number] [facility] 225 [place] 2019-06-15 2019-06-15 Telephone de [facility] [id number] 00:00:00 00:00:00 Marcos Lerma 350.1.13.10 [facility] 4.2.7.2.686 Clinic [id number] [facility] 2019-06-14 2019-06-14 Outpatient R [facility] [id number] Univers 14:40:00 14:40:00 [id number] ity of [facility] 2019-06-14 2019-06-14 Outpatient R [facility] [id number] Univers 14:40:00 14:40:00 ity of [facility] 2019-05-28 2019-05-28 [place] [id number] Univers 20:59:13 23:56:00 Alec Farrell 350.1.13.10 i ty of [place] 4.2.7.2.686 [facility] [id number] [facility] 084 Branch 2019-05-28 2019-05-28 Emergency X NICOLE [facility] ERT [id number] Univers 20:59:13 23:56:00 ALEC ity of [facility] 2019-05-28 2019-05-28 Emergency [place], [place] [id number] 20:59:13 23:56:00 Alec Farrell 350.1.13.10 [place] 4.2.7.2.686 [place] [id number] 084 2019-05-28 2019-05-28 Orders Doctor ILDEFONSO [id number] Univers 00:00:00 00:00:00 Only Unassigned, JOSE 350.1.13.10 ity of [place] [facility] 4.2.7.2.686 [facility] [id number] [address] 2019-05-28 2019-05-28 Orders Doctor FREGOSO [id number] 00:00:00 00:00:00 Only Unassigned, JOSE 350.1.13.10 [place] [facility] 4.2.7.2.686 [id number] 009 Results Test Description Test Time Test Comments Results Result Comments Source GALV ONLY - SYPHILIS IGG/IGM 2020-12-03 15:29:02 Test Item Value Reference Range Interpretation Comme nts Syphilis IgG/IgM (test code = Non-reactive Non-reactive 69740-9) VIRIDIANA (test code = VIRIDIANA) Non-reactive - No serologic evidence of T. pallidum infection. Cannot exclude incubating or early syphilis. Submit a second specimen in 2-4 weeks if syphilis is clinically suspected. Equivocal - Further testing to follow. Reactive - Further testing to follow. Lab Interpretation (test code = Normal 51671-4) [facility] SYPHILIS [id number] 15:29:02 Test Item Value Reference Range Interpretation Comments Syphilis IgG/IgM (test Non-reactive Non-reactive code = 11039-1) VIRIDIANA (test code = VIRIDIANA) Non-reactive - No serologic evidence of T. pallidum infection. Cannot exclude incubating or early syphilis. Submit a second specimen in 2-4 weeks if syphilis is clinically suspected. Equivocal - Further testing to follow. Reactive - Further testing to follow. Lab Interpretation (test Normal code = 38707-3) [facility] B12, [id number] 23:31:33 Test Item Value Reference Range Interpretation Comments VIT B12 (test code = 367 pg/mL 240-930 7984666613) VIRIDIANA (test code = VIRIDIANA) Biotin has been reported to cause a positive bias, interpret results relative to patient's use of biotin. Lab Interpretation (test Normal code = 85821-5) [facility] B12, [id number] 23:31:33 Test Item Value Reference Range Interpretation Comments VIT B12 (test code = 367 pg/mL 240-930 0604543624) VIRIDIANA (test code = VIRIDIANA) Biotin has been reported to cause a positive bias, interpret results relative to patient's use of biotin. Lab Interpretation (test Normal code = 88112-6) [facility]/2 AG-AB WITH [id number] 22:52:15 Test Item Value Reference Range Interpretation Comments HIV Negative Negative Semi-quantitative (test code = 23040-5) VIRIDIANA (test code = Non-reactive for HIV-1 VIRIDIANA) antigen and HIV-1/HIV-2 antibodies. ?No laboratory evidence of HIV infection. ?Repeat in 2-4 weeks if acute HIV infection is suspected. [facility] AG-AB WITH [id number] 22:52:15 Test Item Value Reference Range Interpretation Comments HIV Negative Negative Semi-quantitative (test code = 50087-0) VIRIDIANA (test code = Non-reactive for HIV-1 VIRIDIANA) antigen and HIV-1/HIV-2 antibodies. ?No laboratory evidence of HIV infection. ?Repeat in 2-4 weeks if acute HIV infection is suspected. [facility]2021-09-12 21:55:01 Test Item Value Reference Range Interpretation Comments FOLATE SER (test code = 10.1 ng/mL 3.0-20.0 6755058580) Lab Interpretation (test code = Normal 84409-9) [facility]2021-[facility]-12 21:55:01 Test Item Value Reference Range Interpretation Comments FOLATE SER (test code = 10.1 ng/mL 3.0-20.0 0615759933) Lab Interpretation (test code = Normal 52016-6) [facility]entonMagnesium [id number] 20:12:25 Test Item Value Reference Range Interpretation Comments MAGNESIUM (test code = 9564603748) 1.6 mg/dL 1.7-2.4 L Lab Interpretation (test code = Abnormal 57843-4) [facility]enton[facility] [id number] 20:12:25 Test Item Value Reference Range Interpretation Comments MAGNESIUM (test code = 5204296591) 1.6 mg/dL 1.7-2.4 L Lab Interpretation (test code = Abnormal 07770-2) [facility] Metabolic Panel (Na, K, Cl, CO2, Glucose, BUN, Creatinine, Ca)2020-12-02 20:12:19 Test Item Value Reference Range Interpretation Comments NA (test code = 144 mmol/L 135-145 0772505409) K (test code = 3.3 mmol/L 3.5-5.0 L 0789791335) CL (test code = 114 mmol/L 98-108 H 8070924546) CO2 TOTAL (test code = 21 mmol/L 23-31 L 9158691775) AGAP (test code = 2-16 5118057261) BUN (test code = 4 mg/dL 7-23 L 6946725278) GLUCOSE (test code = 71 mg/dL 70-110 2517781805) CREATININE (test code = 0.57 mg/dL 0.50-1.04 7604088953) CALCIUM (test code = 7.8 mg/dL 8.6-10.6 L 4764730326) eGFR (test code = mL/min/1.73m2 3617272925) VIRIDIANA (test code = VIRIDIANA) Association of [...] tests). Lab Interpretation Abnormal (test code = 88751-3) [facility] Metabolic Panel (Na, K, Cl, CO2, Glucose, BUN, Creatinine, Ca)2020-12-02 20:12:19 Test Item Value Reference Range Interpretation Comments NA (test code = 144 mmol/L 135-145 6821439835) K (test code = 3.3 mmol/L 3.5-5.0 L 6733028455) CL (test code = 114 mmol/L 98-108 H 4895387501) CO2 TOTAL (test code = 21 mmol/L 23-31 L 2797190500) AGAP (test code = 2-16 0540277453) BUN (test code = 4 mg/dL 7-23 L 2337605095) GLUCOSE (test code = 71 mg/dL 70-110 5974897220) CREATININE (test code = 0.57 mg/dL 0.50-1.04 4582877024) CALCIUM (test code = 7.8 mg/dL 8.6-10.6 L 2093174315) eGFR (test code = mL/min/1.73m2 9994054531) VIRIDIANA (test code = VIRIDIANA) Association of [...] tests). Lab Interpretation Abnormal (test code = 89693-4) [facility] [id number] 20:10:53 Test Item Value Reference Range Interpretation Comments PHOSPHORUS (test code = 5956630866) 3.7 mg/dL 2.5-5.0 Lab Interpretation (test code = Normal 25635-3) [facility] [id number] 20:10:53 Test Item Value Reference Range Interpretation Comments PHOSPHORUS (test code = 1348540503) 3.7 mg/dL 2.5-5.0 Lab Interpretation (test code = Normal 81285-0) [facility]enton[facility] Kinase (CK)2020-12-02 20:10:47 Test Item Value Reference Range Interpretation Comments CK (test code = 7490976609) 59 U/L 33-194 Lab Interpretation (test code = Normal 89400-5) [facility]enton[facility] Kinase (CK)2020-12-02 20:10:47 Test Item Value Reference Range Interpretation Comments CK (test code = 8799136024) 59 U/L 33-194 Lab Interpretation (test code = Normal 17391-7) [facility] with [id number] 20:10:42 Test Item Value Reference Range Interpretation Comments WBC (test code = See_Comment [Automated 0690-2) message] The sy stem which generated this [...] RDW-SD (test code = 41.4 fL 38.5-49.0 33850-3) RDW-CV (test code = 13.2 % 11.5-14.0 788-0) PLT (test code = See_Comment L [Automated 777-3) message] The sy stem which generated this result transmitted reference range : 135 - 361 10*3/ ?L. The reference r lorene was not used to interpret this result as normal/abnormal . MPV (test code = 13.3 fL 9.4-13.3 48942-9) NRBC/100 WBC (test See_Comment [Automat ed code = 6189690456) message] The system which generated this result transmitted reference range : 0.0 - 10.0 /100 WBCs. The refer ence range was not u sed to interpret th is result as normal/abnormal . NRBC x10^3 (test code <0.01 See_Comment [Auto mated = 1241653620) message] The s ystem which generated this result transmitted reference range : 10*3/?L. The reference range was not used to interpret this result as normal/abnormal . GRAN MAT (NEUT) % 48.7 % (test code = 770-8) IMM GRAN % (test code 0.40 % = 1501289325) LYMPH % (test code = 39.4 % 736-9) MONO % (test code = 8.9 % 5905-5) EOS % (test code = 2.2 % 713-8) BASO % (test code = 0.4 % 706-2) GRAN MAT x10^3(ANC) 2.67 10*3/uL 1.50-10.30 (test code = 9837622974) IMM GRAN x10^3 (test <0.03 0.00-0.06 code = 0107577353) LYMPH x10^3 (test code 2.16 10*3/uL 0.70-7.40 = 731-0) MONO x10^3 (test code 0.49 10*3/uL 0.00-0.50 = 742-7) EOS x10^3 (test code = 0.12 10*3/uL 0.00-0.40 711-2) BASO x10^3 (test code <0.03 0.00-0.10 = 704-7) Lab Interpretation Abnormal (test code = 80590-8) [facility] with [id number] 20:10:42 Test Item Value Reference Range Interpretation Comments WBC (test code = See_Comment [Automated 6690-2) message] The sy stem which generated this result transmitted reference range : 4.50 - 13.50 10*3/?L. The reference range was not used to interpret this result as normal/abnormal . RBC (test code = See_Comment [Automated 179-8) message] The sy stem which generated this [...] RDW-SD (test code = 41.4 fL 38.5-49.0 50428-9) RDW-CV (test code = 13.2 % 11.5-14.0 788-0) PLT (test code = See_Comment L [Automated 777-3) message] The sy stem which generated this result transmitted reference range : 135 - 361 10*3/ ?L. The reference r lorene was not used to interpret this result as normal/abnormal . MPV (test code = 13.3 fL 9.4-13.3 71311-6) NRBC/100 WBC (test See_Comment [Automat ed code = 6249784854) message] The system which generated this result transmitted reference range : 0.0 - 10.0 /100 WBCs. The refer ence range was not u sed to interpret th is result as normal/abnormal . NRBC x10^3 (test code <0.01 See_Comment [Auto mated = 0906020987) message] The s ystem which generated this result transmitted reference range : 10*3/?L. The reference range was not used to interpret this result as normal/abnormal . GRAN MAT (NEUT) % 48.7 % (test code = 770-8) IMM GRAN % (test code 0.40 % = 1941592770) LYMPH % (test code = 39.4 % 736-9) MONO % (test code = 8.9 % 5905-5) EOS % (test code = 2.2 % 713-8) BASO % (test code = 0.4 % 706-2) GRAN MAT x10^3(ANC) 2.67 10*3/uL 1.50-10.30 (test code = 2078129720) IMM GRAN x10^3 (test <0.03 0.00-0.06 code = 8156614099) LYMPH x10^3 (test code 2.16 10*3/uL 0.70-7.40 = 731-0) MONO x10^3 (test code 0.49 10*3/uL 0.00-0.50 = 742-7) EOS x10^3 (test code = 0.12 10*3/uL 0.00-0.40 711-2) BASO x10^3 (test code <0.03 0.00-0.10 = 704-7) Lab Interpretation Abnormal (test code = 27429-0) [facility]enton[facility]ulating [id number] 16:37:32 Test Item Value Reference Range Interpretation Comments TSH (test code = See_Comment Biotin has been 7454974266) reported to cau se a negative bias, interpret resul ts relative to pat ient's use of biotin. [Automated mess age] The system [employer] generated this result transmitted ref erence range: 0.45 - 4 .70 mIU/L. The refe rence range was not u sed to interpret this result as normal/abnor mal. Lab Interpretation (test Normal code = 28019-0) [facility] [id number] 16:37:32 Test Item Value Reference Range Interpretation Comments TSH (test code = See_Comment Biotin has been 5931309440) reported to cau se a negative bias, interpret resul ts relative to pat ient's use of biotin. [Automated mess age] The system [employer] generated this result transmitted ref erence range: 0.45 - 4 .70 mIU/L. The refe rence range was not u sed to interpret this result as normal/abnor mal. Lab Interpretation (test Normal code = 90132-2) [facility] DRUG (IMMUNOASSAY) - COMPREHENSIVE DRUG SCREEN W/O [id number] 07:41:34 Test Item Value Reference Range Interpretation Comments AMPHET (test code = Negative Negative 1010982342) FABIO U (test code = Negative Negative 8952539578) BENZO U (test code = Negative Negative 4944250647) Cocaine Metabolite (test Negative Negative code = 6880987086) METHADONE (test code = Negative Negative 3295077523) OPIATES (test code = Negative Negative 7489802590) PCP (test code = Negative Negative 3240672902) THC (test code = Presumptive Positive Negative A 9546280402) VIRIDIANA (test code = VIRIDIANA) Urine Drug [...] testing). Lab Interpretation (test Abnormal code = 93085-2) [facility] (IMMUNOASSAY) - COMPREHENSIVE DRUG SCREEN W/O [id number] 07:41:34 Test Item Value Reference Range Interpretation Comments AMPHET (test code = Negative Negative 9255617225) FABIO U (test code = Negative Negative 2373477076) BENZO U (test code = Negative Negative 6621858127) Cocaine Metabolite (test Negative Negative code = 2661387619) METHADONE (test code = Negative Negative 4225956456) OPIATES (test code = Negative Negative 7393731737) PCP (test code = Negative Negative 8826225862) THC (test code = Presumptive Positive Negative A 9712054898) VIRIDIANA (test code = VIRIDIANA) Urine Drug [...] testing). Lab Interpretation (test Abnormal code = 20059-6) [facility]entonCOMP. METABOLIC PANEL (70250)2020-12-02 07:38:37 Test Item Value Reference Range Interpretation Comments NA (test code = 138 mmol/L 135-145 6564155016) K (test code = 3.8 mmol/L 3.5-5.0 9388803011) CL (test code = 108 mmol/L 98-108 7045694224) CO2 TOTAL (test code = 23 mmol/L 23-31 6749588497) AGAP (test code = 2-16 5348565365) BUN (test code = 5 mg/dL 7-23 L 6774233619) GLUCOSE (test code = 93 mg/dL 70-110 7039102068) CREATININE (test code = 0.61 mg/dL 0.50-1.04 8187378057) TOTAL BILI (test code = 0.7 mg/dL 0.1-1.1 4711415073) CALCIUM (test code = 8.6 mg/dL 8.6-10.6 8254292109) T PROTEIN (test code = 6.5 g/dL 6.3-8.2 1014837699) ALBUMIN (test code = 3.9 g/dL 3.5-5.0 6679643686) ALK PHOS (test code = 56 U/L 34-122 7562781149) ALTv (test code = 15 U/L 5-35 2-6) AST(SGOT) (test code = 28 U/L 13-40 5266461229) eGFR (test code = mL/min/1.73m2 0751841090) VIRIDIANA (test code = VIRIDIANA) Association of [...] tests). Lab Interpretation Abnormal (test code = 63400-0) [facility]. METABOLIC PANEL (44558)2020-12-02 07:38:37 Test Item Value Reference Range Interpretation Comments NA (test code = 138 mmol/L 135-145 4816645488) K (test code = 3.8 mmol/L 3.5-5.0 7122556411) CL (test code = 108 mmol/L 98-108 8754373803) CO2 TOTAL (test code = 23 mmol/L 23-31 9151148071) AGAP (test code = 2-16 2565244486) BUN (test code = 5 mg/dL 7-23 L 7302034593) GLUCOSE (test code = 93 mg/dL 70-110 2775717022) CREATININE (test code = 0.61 mg/dL 0.50-1.04 6479860249) TOTAL BILI (test code = 0.7 mg/dL 0.1-1.4 2245117288) CALCIUM (test code = 8.6 mg/dL 8.6-10.6 0219520635) T PROTEIN (test code = 6.5 g/dL 6.3-8.2 3465236471) ALBUMIN (test code = 3.9 g/dL 3.5-5.0 9018190868) ALK PHOS (test code = 56 U/L 34-122 9187066115) ALTv (test code = 15 U/L 5-35 1742-6) AST(SGOT) (test code = 28 U/L 13-40 3943983967) eGFR (test code = mL/min/1.73m2 1583595894) VIRIDIANA (test code = VIRIDIANA) Association of [...] tests). Lab Interpretation Abnormal (test code = 19984-4) [facility]entonCREATINE [id number] 07:38:17 Test Item Value Reference Range Interpretation Comments CK (test code = 7747293208) 62 U/L 33-194 Lab Interpretation (test code = Normal 23346-2) [facility] DentonCREATINE [id number] 07:38:17 Test Item Value Reference Range Interpretation Comments CK (test code = 7068637715) 62 U/L 33-194 Lab Interpretation (test code = Normal 89766-4) [facility]enton[facility]INALYSIS2021-09-12 07:07:10 Test Item Value Reference Range Interpretation Comments APPEARANCE (test code = Cloudy Clear A 5203528378) COLOR (test code = Yellow Yellow 9500173822) PH (test code = 4.8-8.0 6568031907) SP GRAVITY (test code = 1.003-1.030 1052491693) GLU U QUAL (test code = Normal Normal 4420412884) BLOOD (test code = Negative Negative 0913005821) KETONES (test code = 5 mg/dL Negative A 6399429905) PROTEIN (test code = 100 mg/dL Negative A 2887-8) UROBILIN (test code = 2.0 mg/dL Normal A 6768357581) BILIRUBIN (test code = Negative Negative 7650102261) NITRITE (test code = Negative Negative 7567138034) LEUK DENNIS (test code = 500/uL Negative A 6272496489) RBC/HPF (test code = See_Comment [Autom ated message] 3634869582) The system [employer] generated this result transmit carole reference range : 0 - 3 HPF. The refe rence range was not u sed to interpret th is result as normal/abnormal . WBC/HPF (test code = See_Comment H [Autom ated message] 1526591090) The system [employer] generated this result transmit carole reference range : 0 - 5 HPF. The refe rence range was not u sed to interpret th is result as normal/abnormal . BACTERIA (test code = Many Negative A 4962539000) MUCOUS (test code = Moderate Negative LPF A 3215071481) SQ EPITH (test code = HPF 3648256963) CA OXALATE (test code = See_Comment [Au tomated message] 2008004284) The system [employer] generated this result transmit carole reference range : <=1 HPF. The refere nce range was not u sed to interpret th is result as normal/abnormal . HYAL CAST (test code = See_Comment H [Aut omated message] 3528289898) The system [employer] generated this result transmit carole reference range : <=2 LPF. The refere nce range was not u sed to interpret th is result as normal/abnormal . Lab Interpretation (test Abnormal code = 48880-9) [facility]10 Test Item Value Reference Range Interpretation Comments APPEARANCE (test code = Cloudy Clear A 4846894919) COLOR (test code = Yellow Yellow 5573770451) PH (test code = 4.8-8.0 1123402128) SP GRAVITY (test code = 1.003-1.030 2908689711) GLU U QUAL (test code = Normal Normal 9728808372) BLOOD (test code = Negative Negative 4802497689) KETONES (test code = 5 mg/dL Negative A 3812486780) PROTEIN (test code = 100 mg/dL Negative A 2887-8) UROBILIN (test code = 2.0 mg/dL Normal A 5005052830) BILIRUBIN (test code = Negative Negative 1870461749) NITRITE (test code = Negative Negative 4274738689) LEUK DENNIS (test code = 500/uL Negative A 2920495113) RBC/HPF (test code = See_Comment [Autom ated message] 8884894687) The system [employer] generated this result transmit carole reference range : 0 - 3 HPF. The refe rence range was not u sed to interpret th is result as normal/abnormal . WBC/HPF (test code = See_Comment H [Autom ated message] 8498968785) The system [employer] generated this result transmit carole reference range : 0 - 5 HPF. The refe rence range was not u sed to interpret th is result as normal/abnormal . BACTERIA (test code = Many Negative A 4136627384) MUCOUS (test code = Moderate Negative LPF A 5448833188) SQ EPITH (test code = HPF 3558780380) CA OXALATE (test code = See_Comment [Au tomated message] 3319725985) The system [employer] generated this result transmit carole reference range : <=1 HPF. The refere nce range was not u sed to interpret th is result as normal/abnormal . HYAL CAST (test code = See_Comment H [Aut omated message] 7630056425) The system [employer] generated this result transmit carole reference range : <=2 LPF. The refere nce range was not u sed to interpret th is result as normal/abnormal . Lab Interpretation (test Abnormal code = 53111-9) [facility] NOW RAPID TESTING)2020-12-02 06:56:19 Test Item Value Reference Range Interpretation Comments SARS-CoV-2 Rapid ID NOW Not Detected Not Detected (test code = 10642-2) VIRIDIANA (test code = VIRIDIANA) ID NOW COVID-19 Assay is an isothermal nucleic acid amplification test intended for the qualitative detection of nucleic acid from SARS-CoV-2 viral RNA in nasopharyngeal (INSPECTOR PLATING) specimens. It is used under Emergency Use [...] indicated. Lab Interpretation Normal (test code = 21112-9) [facility]APID TESTING[facility]2020-12-02 06:56:19 Test Item Value Reference Range Interpretation Comments SARS-CoV-2 Rapid ID NOW Not Detected Not Detected (test code = 26213-3) VIRIDIANA (test code = VIRIDIANA) ID NOW COVID-19 Assay is an isothermal nucleic acid amplification test intended for the qualitative detection of nucleic acid from SARS-CoV-2 viral RNA in nasopharyngeal (INSPECTOR PLATING) specimens. It is used under Emergency Use [...] indicated. Lab Interpretation Normal (test code = 58112-8) [facility] WITH [id number] 06:42:15 Test Item Value Reference Range Interpretation Comments WBC (test code = See_Comment [Automated message] 6190-2) The system [employer] generated this result transmitted ref erence range: 4.50 - 1 3.50 10*3/?L. The re ference range was not u sed to interpret this result as normal/abnor mal. RBC (test code = See_Comment [Automated message] 759-8) The system [employer] generated this result transmitted ref erence range: [...] RDW-SD (test code 40.5 fL 38.5-49.0 = 04237-7) RDW-CV (test code 13.1 % 11.5-14.0 = 788-0) PLT (test code = See_Comment [Automated message] 777-3) The system whic h generated this result transmitted ref erence range: 135 - 36 1 10*3/?L. The re ference range was not u sed to interpret this result as normal/abnor mal. MPV (test code = 12.9 fL 9.4-13.3 46628-2) NRBC/100 WBC (test See_Comment [Automat ed message] code = 1128323636) The syste m which generated this result transmitted ref erence range: 0.0 - 10 .0 /100 WBCs. The refer ence range was not u sed to interpret this result as normal/abnor mal. NRBC x10^3 (test <0.01 See_Comment [Automated message] code = 6148960384) The syste m which generated this result transmitted ref erence range: 10*3/?L. The reference range was not used to interpr et this result as normal/abnormal . GRAN MAT (NEUT) % 63.7 % (test code = 770-8) IMM GRAN % (test 0.40 % code = 6697205926) LYMPH % (test code 27.4 % = 736-9) MONO % (test code 7.2 % = 5905-5) EOS % (test code = 1.0 % 713-8) BASO % (test code 0.3 % = 706-2) GRAN MAT 4.40 10*3/uL 1.50-10.30 x10^3(ANC) (test code = 4866052846) IMM GRAN x10^3 0.03 10*3/uL 0.00-0.06 (test code = 0807524640) LYMPH x10^3 (test 1.89 10*3/uL 0.70-7.40 code = 731-0) MONO x10^3 (test 0.50 10*3/uL 0.00-0.50 code = 742-7) EOS x10^3 (test 0.07 10*3/uL 0.00-0.40 code = 711-2) BASO x10^3 (test <0.03 0.00-0.10 code = 704-7) [facility] WITH [id number] 06:42:15 Test Item Value Reference Range Interpretation Comments WBC (test code = See_Comment [Automated message] 1090-2) The system [employer] generated this result transmitted ref erence range: 4.50 - 1 3.50 10*3/?L. The re ference range was not u sed to interpret this result as normal/abnor mal. RBC (test code = See_Comment [Automated message] 259-8) The system [employer] generated this result transmitted ref erence range: [...] RDW-SD (test code 40.5 fL 38.5-49.0 = 60755-0) RDW-CV (test code 13.1 % 11.5-14.0 = 788-0) PLT (test code = See_Comment [Automated message] 777-3) The system [employer] generated this result transmitted ref erence range: 135 - 36 1 10*3/?L. The re ference range was not u sed to interpret this result as normal/abnor mal. MPV (test code = 12.9 fL 9.4-13.3 19620-8) NRBC/100 WBC (test See_Comment [Automat ed message] code = 5393787540) The syste m which generated this result transmitted ref erence range: 0.0 - 10 .0 /100 WBCs. The refer ence range was not u sed to interpret this result as normal/abnor mal. NRBC x10^3 (test <0.01 See_Comment [Automated message] code = 2116660817) The syste m which generated this result transmitted ref erence range: 10*3/?L. The reference range was not used to interpr et this result as normal/abnormal . GRAN MAT (NEUT) % 63.7 % (test code = 770-8) IMM GRAN % (test 0.40 % code = 1779451658) LYMPH % (test code 27.4 % = 736-9) MONO % (test code 7.2 % = 5905-5) EOS % (test code = 1.0 % 713-8) BASO % (test code 0.3 % = 706-2) GRAN MAT 4.40 10*3/uL 1.50-10.30 x10^3(ANC) (test code = 8919465659) IMM GRAN x10^3 0.03 10*3/uL 0.00-0.06 (test code = 8396919409) LYMPH x10^3 (test 1.89 10*3/uL 0.70-7.40 code = 731-0) MONO x10^3 (test 0.50 10*3/uL 0.00-0.50 code = 742-7) EOS x10^3 (test 0.07 10*3/uL 0.00-0.40 code = 711-2) BASO x10^3 (test <0.03 0.00-0.10 code = 704-7) [facility] [id number] 06:36:00 Test Item Value Reference Range Interpretation Comments POCT PREG (test code = 1605) neg On board controls acceptable with yes C Line (test code = 3574) POCT PREG LOT # (test code = [id number]) POCT PREG TEST DATE (test code = 3576) Lab Interpretation (test code = Normal 90557-4) [facility] [id number] 06:36:00 Test Item Value Reference Range Interpretation Comments POCT PREG (test code = 1605) neg On board controls acceptable with yes C Line (test code = 3574) POCT PREG LOT # (test code = [id number]) POCT PREG TEST DATE (test code = 3576) Lab Interpretation (test code = Normal 91668-8) [facility] [id number] 06:31:07 Test Item Value Reference Range Interpretation Comments LACTIC ACID (test code = 2.66 mmol/L 0.50-2.20 H 1414577468) Lab Interpretation (test code = Abnormal 57235-4) [facility] Whole [id number] 06:31:07 Test Item Value Reference Range Interpretation Comments LACTIC ACID (test code = 2.66 mmol/L 0.50-2.20 H 2347489365) Lab Interpretation (test code = Abnormal 13828-3) [facility] [id number] 08:22:54 Test Item Value Reference Range Interpretation Comments CK (test code = 9153050373) 101 U/L 33-194 Lab Interpretation (test code = Normal 47066-0) [facility] [id number] 08:22:54 Test Item Value Reference Range Interpretation Comments CK (test code = 2646387558) 101 U/L 33-194 Lab Interpretation (test code = Normal 57855-8) [facility] HEAD WO [id number] 07:07:23 Impression: No CT evidence for acute intracranial abnormality. RL: 460 AFC: [id number] Ordering physician: CHAUNCEY SMITH Indication: Altered level [...] evidence for acute intracranial abnormal ity.RL: 460AFC: [id number] signed by Pooja Rowland MD, PhD at 11/30/2020 2:07 [facility]UnWood[facility] CenterCT HEAD WO [id number] 07:07:23Impression: No CT evidence for acute intracranial abnormality. RL: 460 AFC: [id number] Ordering physician: CHAUNCEY SMITH Indication: Altered level [...] evidence for acute intracranial abnormal ity.RL: 460AFC: [id number] signed by Pooja Rowland MD, PhD at 11/30/2020 2:07 AMUnWoodland Heights [facility] CenterDRUG SCREEN PANEL 2 URINE 2020-11-30 05:54:09 Test Item Value Reference Range Interpretation Comments AMPHET (test code = Negative Negative 7088974724) FABIO U (test code = Negative Negative 5883498282) BENZO U (test code = Presumptive Positive Negative A 9997262086) Cocaine Metabolite (test Negative Negative code = 9333213419) METHADONE (test code = Negative Negative 4179660847) OPIATES (test code = Negative Negative 3540203168) PCP (test code = Negative Negative 1605103950) THC (test code = Presumptive Positive Negative A 3143996860) VIRIDIANA (test code = VIRIDIANA) Urine Drug [...] testing). Lab Interpretation (test Abnormal code = 19197-9) [facility] [id number] 05:54:09 Test Item Value Reference Range Interpretation Comments AMPHET (test code = Negative Negative 9179130091) FABIO U (test code = Negative Negative 1328832424) BENZO U (test code = Presumptive Positive Negative A 8001643283) Cocaine Metabolite (test Negative Negative code = 0758012823) METHADONE (test code = Negative Negative 3963486016) OPIATES (test code = Negative Negative 2032406960) PCP (test code = Negative Negative 7801674221) THC (test code = Presumptive Positive Negative A 6327541122) VIRIDIANA (test code = VIRIDIANA) Urine Drug [...] testing). Lab Interpretation (test Abnormal code = 80967-4) [facility]-19 (ID NOW RAPID TESTING)2020-11-30 05:49:31 Test Item Value Reference Range Interpretation Comments SARS-CoV-2 Rapid ID NOW Not Detected Not Detected (test code = 48732-8) VIRIDIANA (test code = VIRIDIANA) ID NOW COVID-19 Assay is an isothermal nucleic acid amplification test intended for the qualitative detection of nucleic acid from SARS-CoV-2 viral RNA in nasopharyngeal (INSPECTOR PLATING) specimens. It is used under Emergency Use [...] indicated. Lab Interpretation Normal (test code = 43372-9) [facility]-19 (ID NOW RAPID TESTING)2020-11-30 05:49:31 Test Item Value Reference Range Interpretation Comments SARS-CoV-2 Rapid ID NOW Not Detected Not Detected (test code = 13913-8) VIRIDIANA (test code = VIRIDIANA) ID NOW COVID-19 Assay is an isothermal nucleic acid amplification test intended for the qualitative detection of nucleic acid from SARS-CoV-2 viral RNA in nasopharyngeal (INSPECTOR PLATING) specimens. It is used under Emergency Use [...] indicated. Lab Interpretation Normal (test code = 62177-7) [facility] 05:49:21 Test Item Value Reference Range Interpretation Comments APPEARANCE (test code = Hazy Clear A 1570035726) COLOR (test code = Lazara Yellow A 3419047572) PH (test code = 4.8-8.0 3310714424) SP GRAVITY (test code = 1.003-1.030 4453668344) GLU U QUAL (test code = Normal Normal 2486575555) BLOOD (test code = Negative Negative Interfere nce from 6608901411) ascorbic acid m ay cause false neg ative results. KETONES (test code = 20 mg/dL Negative A 1981058154) PROTEIN (test code = 30 mg/dL Negative A 2887-8) UROBILIN (test code = 4.0 mg/dL Normal A 3191437708) BILIRUBIN (test code = Negative Negative 0102506257) NITRITE (test code = Negative Negative 2920809131) LEUK DENNIS (test code = 500/uL Negative A 9780680433) RBC/HPF (test code = See_Comment H [Autom ated message] 7928667159) The system [employer] generated this result transmitted ref erence range: 0 - 3 HP F. The reference range was not used to int erpret this result as normal/abnormal . WBC/HPF (test code = See_Comment H [Autom ated message] 8054586892) The system [employer] generated this result transmitted ref erence range: 0 - 5 HP F. The reference range was not used to int erpret this result as normal/abnormal . BACTERIA (test code = Few Negative A 6433656033) MUCOUS (test code = Slight Negative LPF A 7305311040) SQ EPITH (test code = HPF 2829817287) Lab Interpretation Abnormal (test code = 25774-0) [facility] 05:49:21 Test Item Value Reference Range Interpretation Comments APPEARANCE (test code = Hazy Clear A 8189219025) COLOR (test code = Lazara Yellow A 8558917591) PH (test code = 4.8-8.0 3252779167) SP GRAVITY (test code = 1.003-1.030 6657142823) GLU U QUAL (test code = Normal Normal 4228516391) BLOOD (test code = Negative Negative Interfere nce from 9572970380) ascorbic acid m ay cause false neg ative results. KETONES (test code = 20 mg/dL Negative A 1259105996) PROTEIN (test code = 30 mg/dL Negative A 2887-8) UROBILIN (test code = 4.0 mg/dL Normal A 8966048326) BILIRUBIN (test code = Negative Negative 1580410188) NITRITE (test code = Negative Negative 4891512034) LEUK DENNIS (test code = 500/uL Negative A 5906496055) RBC/HPF (test code = See_Comment H [Autom ated message] 8959177175) The system [employer] generated this result transmitted ref erence range: 0 - 3 HP F. The reference range was not used to int erpret this result as normal/abnormal . WBC/HPF (test code = See_Comment H [Autom ated message] 4699530234) The system [employer] generated this result transmitted ref erence range: 0 - 5 HP F. The reference range was not used to int erpret this result as normal/abnormal . BACTERIA (test code = Few Negative A 0506717639) MUCOUS (test code = Slight Negative LPF A 6909132574) SQ EPITH (test code = HPF 1973649432) Lab Interpretation Abnormal (test code = 85958-0) [facility]2021-[facility]-10 05:47:51 Test Item Value Reference Range Interpretation Comments MAGNESIUM (test code = 9960120644) 2.1 mg/dL 1.7-2.4 Lab Interpretation (test code = Normal 19625-1) [facility]2021-09-10 05:47:51 Test Item Value Reference Range Interpretation Comments MAGNESIUM (test code = 4879071404) 2.1 mg/dL 1.7-2.4 Lab Interpretation (test code = Normal 37476-8) [facility] METABOLIC PANEL (76677)2020-11-30 05:47:35 Test Item Value Reference Range Interpretation Comments NA (test code = 139 mmol/L 135-145 6325742164) K (test code = 3.4 mmol/L 3.5-5.0 L 1515348904) CL (test code = 105 mmol/L 98-108 7401385270) CO2 TOTAL (test code = 24 mmol/L 23-31 8924667357) AGAP (test code = 2-16 6972041211) BUN (test code = 8 mg/dL 7-23 8684661600) GLUCOSE (test code = 84 mg/dL 70-110 9351575694) CREATININE (test code = 0.70 mg/dL 0.50-1.04 6213509633) TOTAL BILI (test code = 0.6 mg/dL 0.1-1.5 5397210227) CALCIUM (test code = 9.3 mg/dL 8.6-10.6 7869770698) T PROTEIN (test code = 7.7 g/dL 6.3-8.2 2401763158) ALBUMIN (test code = 4.6 g/dL 3.5-5.0 2015114265) ALK PHOS (test code = 76 U/L 34-122 9016890306) ALTv (test code = 19 U/L 5-35 1742-6) AST(SGOT) (test code = 25 U/L 13-40 7746514082) eGFR (test code = mL/min/1.73m2 2708098721) VIRIDIANA (test code = VIRIDIANA) Association of [...] tests). Lab Interpretation Abnormal (test code = 24604-2) [facility]. METABOLIC PANEL (88654)2020-11-30 05:47:35 Test Item Value Reference Range Interpretation Comments NA (test code = 139 mmol/L 135-145 6052572748) K (test code = 3.4 mmol/L 3.5-5.0 L 6401083619) CL (test code = 105 mmol/L 98-108 8387723027) CO2 TOTAL (test code = 24 mmol/L 23-31 6394241239) AGAP (test code = 2-16 0941090805) BUN (test code = 8 mg/dL 7-23 4484341323) GLUCOSE (test code = 84 mg/dL 70-110 7693925029) CREATININE (test code = 0.70 mg/dL 0.50-1.04 6311028364) TOTAL BILI (test code = 0.6 mg/dL 0.1-1.4 6902194521) CALCIUM (test code = 9.3 mg/dL 8.6-10.6 2718550015) T PROTEIN (test code = 7.7 g/dL 6.3-8.2 4300356635) ALBUMIN (test code = 4.6 g/dL 3.5-5.0 7743844441) ALK PHOS (test code = 76 U/L 34-122 8489990076) ALTv (test code = 19 U/L 5-35 1742-6) AST(SGOT) (test code = 25 U/L 13-40 9982687105) eGFR (test code = mL/min/1.73m2 9041903465) VIRIDIANA (test code = VIRIDIANA) Association of [...] tests). Lab Interpretation Abnormal (test code = 35954-7) [facility] (AUTOMATED)2020-11-30 05:45:23 Test Item Value Reference Range Interpretation Comments POCT GLU (test code = 2650184111) 83 mg/dL 70-110 Lab Interpretation (test code = Normal 39595-9) [facility])2020-11-30 05:45:23 Test Item Value Reference Range Interpretation Comments POCT GLU (test code = 4441062469) 83 mg/dL 70-110 Lab Interpretation (test code = Normal 72702-7) [facility] 20 + LACTIC [id number] 05:35:20 Test Item Value Reference Range Interpretation Comments PH (test code = 2) 7.35-7.45 PCO2 (test code = See_Comment [Automat ed 8104079985) message] The sy stem which generated this result transmitted reference range : 35 - 45 mmHg. The reference range was not used to interpret this result as normal/abnormal . PO2 (test code = See_Comment H [Automated 7110825982) message] The sy stem which generated this result transmitted reference range : 80 - 100 mmHg. The reference range was not used to interpret this result as normal/abnormal . HCO3 (test code = See_Comment [Automate d 3594611010) message] The sy stem which generated this result transmitted reference range : 22 - 26 mEq/L. The reference range was not used to interpret this result as normal/abnormal . BE (test code = See_Comment [Automated 1902234747) message] The sy stem which generated this result transmitted reference range : -3.0 - 3.0 mEq/ L. The reference r lorene was not used to interpret this result as normal/abnormal . THB (test code = 13.4 g/dL 12.0-16.0 5523200829) %O2HB (test code = 98.5 % 94.0-99.0 5701776667) %COHB ART (test code = 0.0 % 0.0-1.5 9566840063) %METHB ART (test code = 0.3 % 0.4-1.5 L 6155778931) VOL%O2 ART (test code = 18.8 % 15.0-23.0 2837864258) NA (test code = 137 mmol/L 135-145 3696626800) K+ (test code = 3.5 mmol/L 3.5-5.0 8818680779) AC CA IONZ (test code = 4.60 mg/dL 4.50-5.30 0279962871) GLUCOSE (test code = 81 mg/dL 70-110 0611131095) LACTIC ACID (test code 0.87 mmol/L 0.50-2.20 = 2643304346) Lab Interpretation Abnormal (test code = 56947-0) [facility] + LACTIC [id number] 05:35:20 Test Item Value Reference Range Interpretation Comments PH (test code = 2) 7.35-7.45 PCO2 (test code = See_Comment [Automat ed 2193280653) message] The sy stem which generated this result transmitted reference range : 35 - 45 mmHg. The reference range was not used to interpret this result as normal/abnormal . PO2 (test code = See_Comment H [Automated 0181136700) message] The sy stem which generated this result transmitted reference range : 80 - 100 mmHg. The reference range was not used to interpret this result as normal/abnormal . HCO3 (test code = See_Comment [Automate d 0946542524) message] The sy stem which generated this result transmitted reference range : 22 - 26 mEq/L. The reference range was not used to interpret this result as normal/abnormal . BE (test code = See_Comment [Automated 8016981635) message] The sy stem which generated this result transmitted reference range : -3.0 - 3.0 mEq/ L. The reference r lorene was not used to interpret this result as normal/abnormal . THB (test code = 13.4 g/dL 12.0-16.0 1997068058) %O2HB (test code = 98.5 % 94.0-99.0 4273227968) %COHB ART (test code = 0.0 % 0.0-1.5 6334100294) %METHB ART (test code = 0.3 % 0.4-1.5 L 2407375823) VOL%O2 ART (test code = 18.8 % 15.0-23.0 0308319437) NA (test code = 137 mmol/L 135-145 5506148568) K+ (test code = 3.5 mmol/L 3.5-5.0 0992398101) AC CA IONZ (test code = 4.60 mg/dL 4.50-5.30 6285237041) GLUCOSE (test code = 81 mg/dL 70-110 2480634471) LACTIC ACID (test code 0.87 mmol/L 0.50-2.20 = 1898699775) Lab Interpretation Abnormal (test code = 31048-3) [facility] WITH [id number] 05:33:34 Test Item Value Reference Range Interpretation Comments WBC (test code = See_Comment [Automated 6790-2) message] The sy stem which generated this [...] RDW-SD (test code = 41.1 fL 38.5-49.0 67092-8) RDW-CV (test code = 13.2 % 11.5-14.0 788-0) PLT (test code = See_Comment [Automated 777-3) message] The sy stem which generated this result transmitted reference range : 135 - 361 10*3/ ?L. The reference r lorene was not used to interpret this result as normal/abnormal . MPV (test code = 12.5 fL 9.4-13.3 54920-7) NRBC/100 WBC (test See_Comment [Automat ed code = 9664061813) message] The system which generated this result transmitted reference range : 0.0 - 10.0 /100 WBCs. The refer ence range was not u sed to interpret th is result as normal/abnormal . NRBC x10^3 (test code <0.01 See_Comment [Auto mated = 0867827251) message] The s ystem which generated this result transmitted reference range : 10*3/?L. The reference range was not used to interpret this result as normal/abnormal . GRAN MAT (NEUT) % 59.1 % (test code = 770-8) IMM GRAN % (test code 0.40 % = 3140994932) LYMPH % (test code = 31.7 % 736-9) MONO % (test code = 7.0 % 5905-5) EOS % (test code = 1.3 % 713-8) BASO % (test code = 0.5 % 706-2) GRAN MAT x10^3(ANC) 4.58 10*3/uL 1.50-10.30 (test code = 2506182656) IMM GRAN x10^3 (test 0.03 10*3/uL 0.00-0.06 code = 3020104363) LYMPH x10^3 (test code 2.45 10*3/uL 0.70-7.40 = 731-0) MONO x10^3 (test code 0.54 10*3/uL 0.00-0.50 H = 742-7) EOS x10^3 (test code = 0.10 10*3/uL 0.00-0.40 711-2) BASO x10^3 (test code 0.04 10*3/uL 0.00-0.10 = 704-7) Lab Interpretation Abnormal (test code = 81206-6) [facility] WITH [id number] 05:33:34 Test Item Value Reference Range Interpretation Comments WBC (test code = See_Comment [Automated 5395-2) message] The sy stem which generated this result transmitted reference range : 4.50 - 13.50 10*3/?L. The reference range was not used to interpret this result as normal/abnormal . RBC (test code = See_Comment [Automated 943-8) message] The sy stem which generated this [...] RDW-SD (test code = 41.1 fL 38.5-49.0 36578-1) RDW-CV (test code = 13.2 % 11.5-14.0 788-0) PLT (test code = See_Comment [Automated 777-3) message] The sy stem which generated this result transmitted reference range : 135 - 361 10*3/ ?L. The reference r lorene was not used to interpret this result as normal/abnormal . MPV (test code = 12.5 fL 9.4-13.3 54576-7) NRBC/100 WBC (test See_Comment [Automat ed code = [id number]) message] The system which generated this result transmitted reference range : 0.0 - 10.0 /100 WBCs. The refer ence range was not u sed to interpret th is result as normal/abnormal . NRBC x10^3 (test code <0.01 See_Comment [Auto mated = [id number]) message] The s ystem which generated this result transmitted reference range : 10*3/?L. The reference range was not used to interpret this result as normal/abnormal . GRAN MAT (NEUT) % 59.1 % (test code = 770-8) IMM GRAN % (test code 0.40 % = 6266373713) LYMPH % (test code = 31.7 % 736-9) MONO % (test code = 7.0 % 5905-5) EOS % (test code = 1.3 % 713-8) BASO % (test code = 0.5 % 706-2) GRAN MAT x10^3(ANC) 4.58 10*3/uL 1.50-10.30 (test code = 6971081275) IMM GRAN x10^3 (test 0.03 10*3/uL 0.00-0.06 code = 0547079959) LYMPH x10^3 (test code 2.45 10*3/uL 0.70-7.40 = 731-0) MONO x10^3 (test code 0.54 10*3/uL 0.00-0.50 H = 742-7) EOS x10^3 (test code = 0.10 10*3/uL 0.00-0.40 711-2) BASO x10^3 (test code 0.04 10*3/uL 0.00-0.10 = 704-7) Lab Interpretation Abnormal (test code = 55792-3) [facility] GLUCOSE(AGE >30DAYS)2020-11-30 05:31:00 Test Item Value Reference Range Interpretation Comments POCT Glu (age>30days) (test code = 83 mg/dL 70-110 3342) Lab Interpretation (test code = Normal 42193-7) [facility] GLUCOSE(AGE >30DAYS)2020-11-30 05:31:00 Test Item Value Reference Range Interpretation Comments POCT Glu (age>30days) (test code = 83 mg/dL 70-110 3342) Lab Interpretation (test code = Normal 83707-8) [facility] [id number] 05:26:00 Test Item Value Reference Range Interpretation Comments POCT PREG (test code = 1605) NEGATIVE On board controls acceptable with POSITIVE C Line (test code = 3574) POCT PREG LOT # (test code = 3575) [id number] POCT PREG TEST DATE (test 03/22/2022 code = 3576) Lab Interpretation (test code = Normal 96822-9) [facility] [id number] 05:26:00 Test Item Value Reference Range Interpretation Comments POCT PREG (test code = 1605) NEGATIVE On board controls acceptable with POSITIVE C Line (test code = 3574) POCT PREG LOT # (test code = 3575) [id number] POCT PREG TEST DATE (test 03/22/2022 code = 3576) Lab Interpretation (test code = Normal 18760-8) [facility] HEAD WO [id number] 04:38:43 1. No intracranial abnormalities.2. Left parietal [...] within normal limits for the patient's age. [facility] Inft User - 05/28/2019 10:39PM [...] with no skull fractureRL: [id number] of report [facility] 3 [id number] 04:36:57Unremarkable cervical spine radiographs RL: [id number] End [...] [facility]"
[2021-06-11 02:00] LABS: Absolute Lymphocytes (CBC) 2.4 K/uL (0.7-4.9); Hematocrit 35.3 % (36.0-45.0); Lymphocytes % 32.2 % (15.3-44.8); MPV 10.2 fL (7.6-11.3); RBC Red Blood Cell Count 4.02 M/uL (3.86-4.86)
[2021-06-11 02:05] LABS: BUN Blood Urea Nitrogen 11 mg/dL (7-18); Bicarbonate 25 mmol/L (21-32); Glucose Level 87 mg/dL (74-106); Potassium 3.2 mmol/L (3.5-5.1); Sodium Level 141 mmol/L (136-145)
--- NOTE | 2021-06-11 02:46 | EDPHYS ---
Physician Documentation [facility] Name: Sofie Jensen Age: 20 yrs Sex: Female : 2000 Arrival Date: 06/11/2021 Time: 00:31 Bed 6 Private MD: ED Physician Evan Ochoa HPI: 06/11 02:36 This 20 yrs old Female presents to ER via EMS with complaints of Seizure. pm1 02:36 The patient presents after having a single isolated seizure, the episode(s) was pm1 witnessed, by family. Character of seizure(s): Loss of consciousness: it is not known if the patient experienced loss of consciousness, Motor activity: generalized. Seizure onset: just prior to arrival. Context: Contributing factors: Depression and Stressor of her cousins . Associated injury: The patient did not suffer any apparent associated injury. EMS care: IV fluids. Current symptoms: Currently, the patient is not experiencing any symptoms. The patient has experienced similar episodes in the past, a few times. The patient has not recently seen a physician, Patient has not followed up with neurology since last ER visit. OIM ARCHITECT: 00:34 LMP 05/22/2021 st1 Historical: - Allergies: 00:34 citris; st1 - PMHx: 00:34 Asthma; Seizure; st1 - Immunization history:: Adult Immunizations not up to date, Client reports having NOT received the Covid vaccine. Pneumococcal vaccine is not up to date, Flu vaccine is not up to date. - Social history:: Smoking status: Patient reports the use of cigarette tobacco products, denies chronic smoking, but will smoke occasionally, Patient uses alcohol, only on a social basis. street drugs, marijuana, Patient/guardian denies using IV drugs. ROS: 02:36 Constitutional: Negative for fever, chills, and weight loss, Cardiovascular: Negative pm1 for chest pain, palpitations, and edema, Respiratory: Negative for shortness of breath, cough, wheezing, and pleuritic chest pain. 02:36 Abdomen/GI: Negative for abdominal pain, nausea, vomiting, diarrhea, and constipation, MS/Extremity: Negative for injury and deformity, Skin: Negative for injury, rash, and discoloration. 02:36 Neuro: Positive for seizure activity. 02:36 All other systems are negative. Exam: 02:36 Constitutional: This is a well developed, well nourished patient who is awake, alert, pm1 and in no acute distress. Head/Face: Normocephalic, atraumatic. 02:36 Skin: Warm, dry with normal turgor. Normal color with no rashes, no lesions, and no evidence of cellulitis. MS/ Extremity: Pulses equal, no cyanosis. Neurovascular intact. Full, normal range of motion. 02:36 Eyes: Exam is negative for acute changes, Pupils: no acute changes, Extraocular movements: intact throughout, Conjunctiva: no acute changes, no injection. 02:36 ENT: Exam is negative for acute changes, External ear(s): no acute changes, Ear canal(s): no acute changes, Mouth: Lips: normal, moist, Oral mucosa: normal, pink and intact, moist. 02:36 Cardiovascular: Exam negative for acute changes, Rate: normal, Rhythm: regular, Pulses: no pulse deficits are appreciated, Heart sounds: normal. 02:36 Respiratory: Exam negative for acute changes, respiratory distress, shortness of breath. 02:36 Abdomen/GI: Inspection: abdomen appears normal, Palpation: abdomen is soft and non-tender, in all quadrants. 02:36 Neuro: Exam negative for acute changes, Orientation: is normal, Mentation: is normal, Motor: moves all fours. Vital Signs: 00:38 BP 93 / 50; Pulse 74; Resp 18; Temp 99.1; Pulse Ox 100% on R/A; Weight 61.2 kg; Height st1 5 ft. 4 in. (162.56 cm); Pain 0/10; 03:03 BP 104 / 60; Pulse 70; Resp 18; Pulse Ox 100% on R/A; st1 00:38 Body Mass Index 23.16 (61.20 kg, 162.56 cm) st1 MDM: 00:35 Patient medically screened. pm1 02:45 Data reviewed: vital signs. Data interpreted: Pulse oximetry: on room air is 100 %. pm1 Interpretation: normal. Counseling: I had a detailed discussion with the patient and/or guardian regarding: the historical points, exam findings, and any diagnostic results supporting the discharge/admit diagnosis, lab results, the need for outpatient follow up, a neurologist, to return to the emergency department if symptoms worsen or persist or if there are any questions or concerns that arise at home. 06/11 00:38 Order name: CBC with Diff; Complete Time: 02:09 pm1 06/11 00:38 Order name: BMP; Complete Time: 02:27 pm1 06/11 00:38 Order name: IV Saline Lock; Complete Time: 00:47 pm1 06/11 00:38 Order name: EKG; Complete Time: 00:39 pm1 06/11 00:38 Order name: EKG - Nurse/Tech; Complete Time: 01:02 pm1 06/11 00:38 Order name: Urine Dipstick-Ancillary (obtain specimen) pm1 06/11 00:38 Order name: Urine Test (obtain specimen) pm1 Administered Medications: 00:50 Drug: NS 0.9% 1000 ml Route: IV; Rate: 1000 ml; Site: right antecubital; st1 Disposition Summary: 06/11/21 02:46 Discharge Ordered Location: Home pm1 Problem: new pm1 Symptoms: have improved pm1 Condition: Stable pm1 Diagnosis - Epileptic seizures related to external causes, not intractable pm1 - Acute stress reaction - Grief pm1 Followup: pm1 - With: Emergency Department - When: As needed - Reason: Worsening of condition Followup: pm1 - With: Private Physician - When: 2 - 3 days - Reason: Recheck today's complaints, Continuance of care, Re-evaluation by your physician Discharge Instructions: - Discharge Summary Sheet pm1 - Seizure, Adult pm1 - Stress, Adult pm1 Forms: - Medication Reconciliation Form pm1 - Thank You Letter pm1 - Antibiotic Education pm1 - Prescription Opioid Use pm1 Addendum: 06/12/2021 07:06 Co-signature as Attending Physician, Evan Ochoa MD I agree with the assessment and c cook plan of care. Signatures: Dispatcher [employer] Evan Zaman MD MD cha Marinas, Patrick, WOOD CREW SUPERVISOR WOOD CREW SUPERVISOR pm1 Ying Marin RN RN st1 Corrections: (The following items were deleted from the chart) 06/11 00:38 00:34 Social history: Smoking status: Patient reports the use of cigarette tobacco st1 products, denies chronic smoking, but will smoke occasionally, Patient uses alcohol, only on a social basis. Patient/guardian denies using street drugs, IV drugs, st1
--- NOTE | 2021-06-11 02:46 | ER ---
Nurse's Notes [facility] Name: Sofie Jensen Age: 20 yrs Sex: Female : 2000 Arrival Date: 06/11/2021 Time: 00:31 Bed 6 Private MD: Diagnosis: Epileptic seizures related to external causes, not intractable;Acute stress reaction-Grief Presentation: 06/11 00:31 Chief complaint: EMS states: the patient went to lay down in bed and had a seizure for st1 approximately 5 -10 minutes. The patient has not been taking her prescribed seizure medications. Coronavirus screen: Vaccine status: Patient reports being unvaccinated. Ebola Screen: No symptoms or risks identified at this time. Initial Sepsis Screen: Does the patient meet any 2 criteria? No. Patient's initial sepsis screen is negative. Does the patient have a suspected source of infection? No. Patient's initial sepsis screen is negative. Risk Assessment: Do you want to hurt yourself or someone else? Patient reports no desire to harm self or others. Onset of symptoms was June 11, 2021. 00:31 Method Of Arrival: EMS: [facility] st1 00:31 Acuity: EN 3 st1 Triage Assessment: 00:34 General: Appears in no apparent distress. uncomfortable, ill, well groomed, Behavior is st1 calm, cooperative, flat. Pain: Denies pain. WEED BURNER: 00:34 LMP 05/22/2021 st1 Historical: - Allergies: 00:34 citris; st1 - PMHx: 00:34 Asthma; Seizure; st1 - Immunization history:: Adult Immunizations not up to date, Client reports having NOT received the Covid vaccine. Pneumococcal vaccine is not up to date, Flu vaccine is not up to date. - Social history:: Smoking status: Patient reports the use of cigarette tobacco products, denies chronic smoking, but will smoke occasionally, Patient uses alcohol, only on a social basis. street drugs, marijuana, Patient/guardian denies using IV drugs. Screenin:40 Abuse screen: Denies threats or abuse. Nutritional screening: No deficits noted. st1 Tuberculosis screening: No symptoms or risk factors identified. Fall Risk None identified. No fall in past 12 months (0 pts). Secondary diagnosis (15 points) seizures, IV access (20 points). Ambulatory Aid- None/Bed Rest/Nurse Assist (0 pts). Gait- Normal/Bed Rest/Wheelchair (0 pts) Mental Status- Oriented to own ability (0 pts). Total Walton Fall Scale indicates No Risk (0-24 pts). Assessment: 00:40 Reassessment: Patient appears in no apparent distress at this time. please see triage st1 note. Vital Signs: 00:38 BP 93 / 50; Pulse 74; Resp 18; Temp 99.1; Pulse Ox 100% on R/A; Weight 61.2 kg; Height st1 5 ft. 4 in. (162.56 cm); Pain 0/10; 03:03 BP 104 / 60; Pulse 70; Resp 18; Pulse Ox 100% on R/A; st1 00:38 Body Mass Index 23.16 (61.20 kg, 162.56 cm) st1 ED Course: 00:31 Patient arrived in ED. mw2 00:31 Ying Marin RN is Primary Nurse. st1 00:32 Bebeto Pabon NP is PHCP. pm1 00:32 Evan Ochoa MD is Attending Physician. pm1 00:34 Triage completed. st1 00:36 Arm band placed on right wrist. st1 00:46 CBC with Diff Sent. st1 00:47 BMP Sent. st1 00:50 Maintain EMS IV. Dressing intact. Good blood return noted. Site clean \T\ dry. Gauge \T\ st 1 site: 18ga right AC. 01:02 Patient has correct armband on for positive identification. Bed in low position. Call st1 light in reach. Side rails up X2. Seizure precautions initiated. 02:59 No provider procedures requiring assistance completed. IV discontinued, intact, st1 bleeding controlled, No redness/swelling at site. Pressure dressing applied. Administered Medications: 00:50 Drug: NS 0.9% 1000 ml Route: IV; Rate: 1000 ml; Site: right antecubital; st1 Outcome: 02:46 Discharge ordered by . pm1 02:59 Discharged to home ambulatory. st1 02:59 Condition: good 02:59 Discharge instructions given to patient, Instructed on discharge instructions, follow up and referral plans. Demonstrated understanding of instructions, follow-up care. 03:03 Patient left the ED. st1 Signatures: Bebeto Pabon NP FASHION BUYER pm1 Bar Addison mw2 Ying Marin, RN RN st1 Corrections: (The following items were deleted from the chart) 00:38 00:34 Social history: Smoking status: Patient reports the use of cigarette tobacco st1 products, denies chronic smoking, but will smoke occasionally, Patient uses alcohol, only on a social basis. Patient/guardian denies using street drugs, IV drugs, st1 00:40 00:34 LMP N/A - Irregular menses st1 st1
[2021-06-11 03:45] VITALS: TEMP 99.1; O2SAT 100
[2021-06-11 03:46] VITALS: BP 104/60
--- NOTE | 2021-06-11 08:43 | EKG ---
Test Date: 2021-06-11 Test Time: 00:59:22 Copy Chaser: DANNIE MEASUREMENT RESULTS: Intervals: Rate: 80 IL: 188 QRSD: 90 QT: 384 QTc: 442 Corn: P: 56 IL: 188 QRS: 73 T: 58 INTERPRETIVE STATEMENTS: Normal sinus rhythm RSR' or QR pattern in V1 suggests right ventricular conduction delay Borderline ECG Compared to ECG 06/02/2021 00:13:57 RSR' in V1 or V2 now present Electronically Signed On 06-11-21 08:42:05 CDT by Trent Capellan
== END 2021-06-11 03:03 | disposition home or self-care (01) ==
LOC: ER 00:30
DX: G40.509 Epileptic seizures related to external causes, not intractable, without status epilepticus (principal); F43.0 Acute stress reaction; F17.210 Nicotine dependence, cigarettes, uncomplicated; Z91.018 Allergy to other foods
CPT/HCPCS: 93005; 85025; 80048; 36415; 99283; J7030

== ENCOUNTER 2021-06-24 14:30 | Emergency (ER) | payer OTHER ==
--- OUTSIDE RECORDS SUMMARY | 2021-06-24 14:36 | XMS REPORT | Continuity of Care Document ---
:[address] [facility] t Address [address] [place] [address] Care Team Providers Name Role Phone PCP, [...] Number Effective Date Expiration Date Courtney JONES [id number] 2019 00:00:00 [place] [facility] [id number] 2017 HEALTH 00:00:00 Problems Condition Condition Condition [...] rs active active ity of problems problems [facility] Allergies, Adverse Reactions, Alerts Allergy Allergy Status Severity Reaction(s) Onset Inactive Treating Comm ents Source Name Type Date Date Clinician Lasker Propensi Active Hives Univers And ty to [...] Quantity Comments Source Exposure to Not sure [facility] SARS-CoV-2 (event) [facility] Tobacco use and 2017-11-19 2017-11-19 Never used [facility] exposure 00:00:00 00:00:00 Medical [place] Sex Assigned At [birth year] [facility] 00:00:00 00:00:00 Medical Branch Smoking Status Start Date Stop Date Source Never smoker [facility] Medications Ordered Filled Start Stop Current Ordering Indication Dosage Frequency Signature Comments Components Source Medication Medication Date Date Medication? Clinician (SIG) Name Name Potassium Yes 40meq 40 mEq, Univ ers Bicarb-Citr 12-04 Oral, ity of ic Acid 14:00: DAILY, [place] (EFFER-K) 00 First dose Medi lilibeth effervescen on Thu [place] t tablet 40 12/04/20 at mEq 0900, Until Discontinu ed, Routine Potassium Yes 40meq 40 mEq, Univ ers Bicarb-Citr 9-14 Oral, ity of ic Acid 14:00: DAILY, [place] (EFFER-K) 00 First dose Medi lilibeth effervescen on Thu t tablet 40 12/04/20 at mEq 0900, Until Discontinu ed, Routine prazosin Yes 1mg 1 mg, Univers (MINIPRES) 9-14 Oral, QHS, ity of capsule 1 02:00: First dose [place] mg 00 on [facility] 12/03/20 at [place] 2100, Until Discontinu ed, Routine prazosin Yes 1mg 1 mg, Univers (MINIPRES) 9-14 Oral, QHS, ity of capsule 1 02:00: First dose [place] mg 00 on [facility] 12/03/20 at [place] 2100, Until Discontinu ed, Routine vitamin 2020- No [id number] 1000ug Take 1 U nivers B-12 1,000 9-14 10-15 tablet by ity of mcg tablet 00:00: 04:59 mouth [place] 00 :00 daily for Medical 30 days. [place] vitamin 2020- No [id number] 1000ug Take 1 U nivers B-12 1,000 -14 10-15 tablet by ity of mcg tablet 00:00: 04:59 mouth [place] 00 :00 daily for Medical 30 days. [place] gadoteridol 2020- No [id number] .2mL/kg 11.8 mL Univers (PROHANCE-1 12-03 (0.2 mL/kg i ty of 5 mL) 17:00: 17:00 ?59 kg), [place] injection 00 :00 Intravenou Medi lilibeth 11.8 mL s, ONCE, 1 Branch dose, On [facility] 12/03/20 at 1200, Routine gadoteridol 2020- No [id number] .2mL/kg 11.8 mL Univers (PROHANCE-1 12-03 (0.2 mL/kg i ty of 5 mL) 17:00: 17:00 ?59 kg), [place] injection 00 :00 Intravenou Medi lilibeth 11.8 mL s, ONCE, 1 Branch dose, On [facility] 12/03/20 at 1200, Routine vitamin Yes 1000ug 1,000 mcg, Un spring B-12 12-03 Oral, ity of (CYANOCOBAL 14:00: DAILY, [place] RAM) 00 First dose Medical tablet on Mon Branch 1,000 mcg 12/03/20 at 0900, Until Discontinu ed, Routine pantoprazol Yes 40mg 40 mg, [facility] ers e 12-03 Oral, ity of (PROTONIX) 14:00: DAILY, [place] EC tablet 00 First dose Medi lilibeth 40 mg on Thu Branch 12/03/20 at 0900, Until Discontinu ed, Routine vitamin 0 Yes 1000ug 1,000 mcg, Un spring B-12 12-03 Oral, ity of (CYANOCOBAL 14:00: DAILY, [place] RAM) 00 First dose Medical tablet on [facility] Branch 1,000 mcg 12/03/20 at 0900, Until Discontinu ed, Routine pantoprazol Yes 40mg 40 mg, Univ ers e 12-03 Oral, ity of (PROTONIX) 14:00: DAILY, [place] EC tablet 00 First dose Medi lilibeth 40 mg on [facility] Branch 12/03/20 at 0900, Until Discontinu ed, Routine potassium 2020- No 20meq 20 mEq, IV Univers chloride 20 12-03 Piggyback, i ty of mEq/100 mL 13:00: 16:59 Q2H, 2 [place] (KCL) 20 00 :00 doses, Medical mEq/100 mL First dose [facility] RTU IVPB 20 on Thu mEq 12/03/20 at 0800, Last dose on Thu12/03/20 at 1000, 100 mL potassium 2020- No 20meq 20 mEq, IV Univers chloride 20 12-03 Piggyback, i ty of mEq/100 mL 13:00: 16:59 Q2H, 2 [place] (KCL) 20 00 :00 doses, Medical mEq/100 mL First dose [facility] RTU IVPB 20 on Thu mEq 12/03/20 at 0800, Last dose on Thu12/03/20 at 1000, 100 mL ciprofloxac 2020-2020- No [id number] 500mg Take 1 Univers in HCl 500 12-03 tablet by ity of mg tablet 00:00: 04:59 mouth [place] 00 :00 every 12 Medical (twelve) Branch hours for 7 days. ciprofloxac 2020- No [id number] 500mg Take 1 Univers in HCl 500 12-03 tablet by ity of mg tablet 00:00: 04:59 mouth [place] 00 :00 every 12 Medical (twelve) Branch hours for 7 days. enoxaparin Yes 40mg 40 mg, Unive rs (LOVENOX) 12-02 Subcutaneo ity of injection 22:00: us, DAILY, [place] 40 mg 00 First dose Medical on [facility] 12/02/20 at 1700, Until Discontinu ed, Routine enoxaparin Yes 40mg 40 mg, Unive rs (LOVENOX) 12-02 Subcutaneo ity of injection 22:00: us, DAILY, [place] 40 mg 00 First dose Medical on [facility] 12/02/20 at 1700, Until Discontinu ed, Routine gadoteridol 2020- No [id number] .2mL/kg 11.8 mL Univers (PROHANCE-1 12-02 (0.2 mL/kg i ty of 5 mL) 17:45: 17:45 ?59 kg), [place] injection 00 :00 Intravenou Medi lilibeth 11.8 mL s, ONCE, 1 Branch dose, On [place] 12/02/20 at 1245, Routine gadoteridol 2020- No [id number] .2mL/kg 11.8 mL Univers (PROHANCE-1 12-02 (0.2 mL/kg i ty of 5 mL) 17:45: 17:45 ?59 kg), [place] injection 00 :00 Intravenou Medi lilibeth 11.8 mL s, ONCE, 1 Branch dose, On [place] 12/02/20 at 1245, Routine cefTRIAXone Yes 1000mg 1,000 mg, Univers (ROCEPHIN) 12-02 IV ity of 1,000 mg in 16:30: Piggyback, [place] NaCl 0.9% 00 Q24H ABX, Medic al (NS) 50 mL First dose [facility] MINI-BAG on [place] 12/02/20 at 1130, Until Discontinu ed, Administer over 30 Minutes, 50 mL
Reas on for Anti-Infec tive: Documented Infection< br>Documen carole Infection Site: Urine
D uration of Therapy: 7 days cefTRIAXone 0 Yes 1000mg 1,000 mg, Univers (ROCEPHIN) 9-12 IV ity of 1,000 mg in 16:30: Piggyback, [place] NaCl 0.9% 00 Q24H ABX, Medic al (NS) 50 mL First dose [facility] MINI-BAG on [place] 12/02/20 at 1130, Until Discontinu ed, Administer over 30 Minutes, 50 mL
Reas on for Anti-Infec tive: Documented Infection< br>Documen carole Infection Site: Urine
D uration of Therapy: 7 days NaCl 0.9% 0 Yes 1000mL at 50 Unive rs (NS) IV 9-12 mL/hr, IV ity of infusion 15:30: Infusion, [place] 1,000 mL 00 CONTINUOUS Medic al , Starting Branch on [place] 12/02/20 at 1030, Until Discontinu ed, Routine NaCl 0.9% 0 Yes 1000mL at 50 Unive rs (NS) IV 9-12 mL/hr, IV ity of infusion 15:30: Infusion, [place] 1,000 mL 00 CONTINUOUS Medic al , Starting Branch on [place] 12/02/20 at 1030, Until Discontinu ed, Routine acetaminoph 0 Yes 650mg 650 mg, Un spring en 12 Oral, ity of (TYLENOL) 15:19: Q6HPRN, [place] tablet 650 42 Starting Medic al mg on [facility] 12/02/20 at 1019, Until Discontinu ed, Routine, Pain (scale 4-6) docusate 0 Yes 100mg 100 mg, Unive rs (COLACE) 912 Oral, ity of capsule 100 15:19: QDAILYPRN, [place] mg 42 Starting Medical on [facility] 12/02/20 at 1019, Until Discontinu ed, Routine, Constipati on acetaminoph 0 Yes 650mg 650 mg, Un spring en 9-12 Oral, ity of (TYLENOL) 15:19: Q6HPRN, [place] tablet 650 42 Starting Medic al mg on [facility] 12/02/20 at 1019, Until Discontinu ed, Routine, Pain (scale 4-6) docusate Yes 100mg 100 mg, Unive rs (COLACE) 12-02 Oral, ity of capsule 100 15:19: QDAILYPRN, [place] mg 42 Starting Medical on [facility] 12/02/20 at 1019, Until Discontinu ed, Routine, Constipati on midazolam 2020- No 1mg 1 mg, IV Uni vers (VERSED) 12-02 Push, ity of injection 1 11:15: 10:15 ONCE, 1 [place] mg 00 :00 dose, [facility] 12/02/20 at Branch 0615, STAT midazolam 2020-0 2020- No 1mg 1 mg, IV Uni vers (VERSED) 12-02 Push, ity of injection 1 11:15: 10:15 ONCE, 1 [place] mg 00 :00 dose, [facility] 12/02/20 at [place] 0615, STAT midazolam 2020-2020- No 1mg 1 mg, IV Uni vers (VERSED) 12-02 Push, ity of injection 1 10:45: 09:30 ONCE, 1 [place] mg 00 :00 dose, [facility] 12/02/20 at [place] 0545, STAT midazolam 2020-2020- No 1mg 1 mg, IV Uni vers (VERSED) 12-02 Push, ity of injection 1 10:45: 09:30 ONCE, 1 [place] mg 00 :00 dose, [facility] 12/02/20 at Branch 0545, STAT NaCl 0.9% Yes 1000mL at 125 Univ ers (NS) IV 9-12 mL/hr, IV ity of infusion 10:00: Infusion, [place] 1,000 mL 00 CONTINUOUS Medic al , Starting [facility] 12/02/20 at 0500, Until Discontinu ed, Routine NaCl 0.9% 0 Yes 1000mL at 125 Univ ers (NS) IV 9-12 mL/hr, IV ity of infusion 10:00: Infusion, [place] 1,000 mL 00 CONTINUOUS Medic al , Starting [facility] 12/02/20 at 0500, Until Discontinu ed, Routine ondansetron Yes 4mg 4 mg, Slow Univers (ZOFRAN 12-02 IV Push, ity of (PF)) 09:52: Q6HPRN, [place] injection 4 57 Starting Medi lilibeth mg [facility] 12/02/20 at 0452, Until Discontinu ed, Routine, Nausea and Vomiting (N/V) ondansetron 2020-0 Yes 4mg 4 mg, Slow Univers (ZOFRAN 12-02 IV Push, ity of (PF)) 09:52: Q6HPRN, [place] injection 4 57 Starting Medi lilibeth mg [facility] 12/02/20 at 0452, Until Discontinu ed, Routine, Nausea and Vomiting (N/V) acetaminoph 1-0 Yes 650mg 650 mg, Un spring en 12 Oral, ity of (TYLENOL) 09:52: Q6HPRN, [place] tablet 650 44 Starting Medic al mg [facility] 12/02/20 at 0452, Until Discontinu ed, Routine, Pain (scale 1-3), Temp > 38.5 C acetaminoph 2020-0 Yes 650mg 650 mg, Un spring en 12-02 Oral, ity of (TYLENOL) 09:52: Q6HPRN, [place] tablet 650 44 Starting Medic al mg [facility] 12/02/20 at 0452, Until Discontinu ed, Routine, Pain (scale 1-3), Temp > 38.5 C NaCl 0.9% 2020- No 1000mL at 999 Uni vers (NS) bolus 12-02 mL/hr, ity of infusion 09:00: 10:23 1,000 mL, [place] 1,000 mL 00 :[facility] dose, [place] 12/02/20 at 0400, STAT NaCl 0.9% 2020- No 1000mL at 999 Uni vers (NS) bolus 12-02 mL/hr, ity of infusion 09:00: 10:23 1,000 mL, [place] 1,000 mL 00 :00 IV Medical Piggyback, [place] ONCE, 1 dose, [place] 12/02/20 at 0400, STAT cefTRIAXone 2020-2020- No 1000mg 1,000 mg, Univers (ROCEPHIN) 12-02 IV ity of 1,000 mg in 08:45: 08:24 [place], [place] NaCl 0.9% 00 :00 ONCE, 1 Medical (NS) 50 mL dose, [place] Bran ch MINI-BAG 12/02/20 at 0345, Administer over 30 Minutes, 50 mL
R fabio for Anti-Infec tive: Documented Infection< br>Documen carole Infection Site: Urine
D uration of Therapy: 7 days cefTRIAXone 2020-2020- No 1000mg 1,000 mg, Univers (ROCEPHIN) 12-02 IV ity of 1,000 mg in 08:45: 08:24 Piggyback, [place] NaCl 0.9% 00 :00 ONCE, 1 Medical (NS) 50 mL dose, [place] Bran ch MINI-BAG 12/02/20 at 0345, Administer over 30 Minutes, 50 mL
R fabio for Anti-Infec tive: Documented Infection< br>Documen carole Infection Site: Urine
D uration of Therapy: 7 days midazolam 2020-2020- No 1mg 1 mg, IV Uni vers (VERSED) 12-02 Push, ity of injection 1 07:15: 06:42 ONCE, 1 [place] mg 00 :00 dose, [facility] 12/02/20 at Branch 0215, STAT midazolam 2020-2020- No 1mg 1 mg, IV Uni vers (VERSED) 12-02 Push, ity of injection 1 07:15: 06:42 ONCE, 1 [place] mg 00 :00 dose, [facility] 12/02/20 at [place] 0215, STAT NaCl 0.9% 2020- No 500mL at 999 Univ ers (NS) bolus 12-02 mL/hr, 500 it y of infusion 07:00: 07:12 mL, IV [place] 500 mL 00 :00 Piggyback, [facility] ONCE, 1 Branch dose, [place] 12/02/20 at 0200, STAT NaCl 0.9% 2020-2020- No 500mL at 999 Univ ers (NS) bolus 12-02 mL/hr, 500 it y of infusion 07:00: 07:12 mL, IV [place] 500 mL 00 :00 Piggyback, Medical ONCE, 1 Branch dose, [place] 12/02/20 at 0200, STAT cefTRIAXone 2020-0 2021- No 1000mg 1,000 mg, Univers (ROCEPHIN) 11-30 IV ity of 1,000 mg in :30: 07:03 [place], [place] NaCl 0.9% 00 :00 ONCE, 1 Medical (NS) 50 mL dose, Fri Bran ch MINI-BAG 11/30/20 at 0230, Administer over 30 Minutes, 50 mL
R fabio for Anti-Infec tive: Documented Infection< br>Documen carole Infection Site: Urine
D uration of Therapy: Other (see Comments) cefTRIAXone 2020- No 1000mg 1,000 mg, Univers (ROCEPHIN) 11-30 IV ity of 1,000 mg in :30: 07:03 [place], [place] NaCl 0.9% 00 :00 ONCE, 1 Medical (NS) 50 mL dose, Fri Bran ch MINI-BAG 11/30/20 at 0230, Administer over 30 Minutes, 50 mL
R fabio for Anti-Infec tive: Documented Infection< br>Documen carole Infection Site: Urine
D uration of Therapy: Other (see Comments) Nitrofurant Yes [id number] 100mg Take 1 Univers oin&Nit. 9-10 capsule by ity o f Macrocryst 00:00: mouth 2 [place] (MACROBID) 00 (two) Medical 100 mg times Branch capsule daily. Nitrofurant Yes [id number] 100mg Take 1 Univers oin&Nit. 9-10 capsule by ity o f Macrocryst 00:00: mouth 2 [place] (MACROBID) 00 (two) Medical 100 mg times Branch capsule daily. Nitrofurant Yes [id number] 100mg Take 1 Univers oin&Nit. 9-10 capsule by ity o f Macrocryst 00:00: mouth 2 [place] (MACROBID) 00 (two) Medical 100 mg times Branch capsule daily. Nitrofurant Yes [id number] 100mg Take 1 Univers oin&Nit. 9-10 capsule by ity o f Macrocryst 00:00: mouth 2 [place] (MACROBID) 00 (two) Medical 100 mg times Branch capsule daily. Nitrofurant Yes [id number] 100mg Take 1 Univers oin&Nit. 9-10 capsule by ity o f Mac[place]ryst 00:00: mouth 2 [place] (MACROBID) 00 (two) Medical 100 mg times Branch capsule daily. Nitrofurant Yes [id number] 100mg Take 1 Univers oin&Nit. 9-10 capsule by ity o f [place] 00:00: mouth 2 [place] (MACROBID) 00 (two) Medical 100 mg times Branch capsule daily. Nitrofurant Yes [id number] 100mg Take 1 Univers oin&Nit. 9-10 capsule [...] 3-11 affected ity of cream 00:00: area(s) [place] 00 daily. Medical Branch hydrocortis 2015- Yes Apply to U nivers one 1 % 3-11 affected ity of cream 00:00: area(s) [place] 00 daily. Medical Branch hydrocortis 2015- Yes [...] 00 daily. Medical Branch crotamiton 2016-0 Yes [id number] After warm Univers (EURAX) 10 3-08 bath apply ity of % lotion 00:00: lotion to [place] 00 entire Medical body Branch excluding face and scalp. Repeat in 24 hours. cetirizine 2015- Yes [id number] 10mg Take 1 Tab Univers (ZYRTEC) 10 3-08 by mouth ity of mg tablet 00:00: at bedtime [place] 00 as needed Medical for Other Branch (itching). crotamiton 0 Yes [id number] After warm Univers (EURAX) 10 3-08 bath apply ity of % lotion 00:00: lotion to [place] 00 entire Medical body Branch excluding face and scalp. Repeat in 24 hours. cetirizine 2015-0 Yes [id number] 10mg Take 1 Tab Univers (ZYRTEC) 10 3-08 by mouth ity of mg tablet 00:00: at bedtime [place] 00 as needed Medical for Other Branch (itching). crotamiton 2015-0 Yes [id number] After warm Univers (EURAX) 10 3-08 bath apply ity of % lotion 00:00: lotion to [place] 00 entire Medical body Branch excluding face and scalp. Repeat in 24 hours. cetirizine 2015-0 Yes [id number] 10mg Take 1 Tab Univers (ZYRTEC) 10 3-08 by mouth ity of mg tablet 00:00: at bedtime [place] 00 as needed Medical for Other Branch (itching). crotamiton 2015-0 Yes [id number] After warm Univers (EURAX) 10 3-08 bath apply ity of % lotion 00:00: lotion to [place] 00 entire Medical body Branch excluding face and scalp. Repeat in 24 hours. cetirizine Yes [id number] 10mg Take 1 Tab Univers (ZYRTEC) 10 3-08 by mouth ity of mg tablet 00:00: at bedtime [place] 00 as needed Medical for Other Branch (itching). crotamiton Yes [id number] After warm Univers (EURAX) 10 3-08 bath apply ity of % lotion 00:00: lotion to [place] 00 entire Medical body Branch excluding face and scalp. Repeat in 24 hours. cetirizine Yes [id number] 10mg Take 1 Tab Univers (ZYRTEC) 10 3-08 by mouth ity of mg tablet 00:00: at bedtime [place] 00 as needed Medical for Other Branch (itching). crotamiton Yes [id number] After warm Univers (EURAX) 10 3-08 bath apply ity of % lotion 00:00: lotion to [place] 00 entire Medical body Branch excluding face and scalp. Repeat in 24 hours. cetirizine Yes [id number] 10mg Take 1 Tab Univers (ZYRTEC) 10 3-08 by mouth ity of mg tablet 00:00: at bedtime [place] 00 as needed Medical for Other Branch (itching). crotamiton Yes [id number] After warm Univers (EURAX) 10 3-08 bath apply ity of % lotion 00:00: lotion to [place] 00 entire Medical body Branch excluding face and scalp. Repeat in 24 hours. cetirizine Yes [id number] 10mg Take 1 Tab Univers (ZYRTEC) 10 3-08 by mouth ity of mg tablet 00:00: at bedtime [place] 00 as needed Medical for Other Branch (itching). crotamiton Yes [id number] After warm Univers (EURAX) 10 3-08 bath apply ity of % lotion 00:00: lotion to [place] 00 entire Medical body Branch excluding face and scalp. Repeat in 24 hours. cetirizine Yes [id number] 10mg Take 1 Tab Univers (ZYRTEC) 10 3-08 by mouth ity of mg tablet 00:00: at bedtime [place] 00 as needed Medical for Other Branch (itching). crotamiton Yes [id number] After warm Univers (EURAX) 10 3-08 bath apply ity of % lotion 00:00: lotion to [place] 00 entire Medical body Branch excluding face and scalp. Repeat in 24 hours. cetirizine Yes [id number] 10mg Take 1 Tab Univers (ZYRTEC) 10 3-08 by mouth ity of mg tablet 00:00: at bedtime [place] 00 as needed Medical for Other Branch (itching). crotamiton Yes [id number] After warm Univers (EURAX) 10 3-08 bath apply ity of % lotion 00:00: lotion to [place] 00 entire Medical body Branch excluding face and scalp. Repeat in 24 hours. cetirizine Yes [id number] 10mg Take 1 Tab Univers (ZYRTEC) 10 [...] Immunizations Ordered Filled Immunization Date Status Comments [facility] e Immunization Name Name HPV9 2015-05-17 Completed University of 00:00:00 [facility] HPV9 2015-05-17 Completed University of 00:00:00 [facility] HPV9 2015-05-17 Completed University of 00:00:00 [facility] HPV9 2015-05-17 Completed University of 00:00:00 [facility] HPV9 2015-05-17 Completed University of 00:00:00 [facility] HPV9 2015-05-17 Completed University of 00:00:00 [facility] HPV9 2015-05-17 Completed University of 00:00:00 [facility] HPV9 2015-05-17 Completed University of 00:00:00 [facility] HPV9 2015-05-17 Completed University of 00:00:00 [facility] HPV9 2015-05-17 Completed University of 00:00:00 [facility] Varicella 2015-01-16 Completed University of [...] y of Vaccine Quad IM 3+ 00:00:00 [facility] Influenza Virus 2014-12-27 Completed Universit y of Vaccine Quad IM 3+ 00:00:00 [facility] Influenza Virus 2014-12-27 Completed Universit y of Vaccine Quad IM 3+ 00:00:00 [facility] Influenza Virus 2014-12-27 Completed Universit y of Vaccine Quad IM 3+ 00:00:00 [facility] Influenza Virus 2014-12-27 Completed Universit y of Vaccine Quad IM 3+ 00:00:00 [facility] Influenza Virus 2014-12-27 Completed Universit y of Vaccine Quad IM 3+ 00:00:00 [facility] Influenza Virus 2014-12-27 Completed Universit y of Vaccine Quad IM 3+ 00:00:00 [facility] Influenza Virus 2014-12-27 Completed Universit y of Vaccine Quad IM 3+ 00:00:00 [facility] Influenza Virus 2014-12-27 Completed Universit y of Vaccine Quad IM 3+ 00:00:00 [facility] Influenza Virus 2014-12-27 Completed Universit y of Vaccine Quad IM 3+ 00:00:00 [facility] Vital Signs Vital Name Observation Time Observation Value Comments Source Systolic blood 2020-12-04 12:43:00 118 mm[Hg] [facility]iver [facility]ity [facility] Diastolic blood 2020-12-04 12:43:00 65 mm[Hg] Unive rsity of [facility] Heart rate 2020-12-04 12:43:00 69 /min General acute hospital Body temperature 2020-12-04 12:43:00 36.5 Latoya [facility] 2020-12-04 12:43:00 15 /min [facility] Oxygen saturation in 2020-12-04 12:43:00 97 /min [facility] Arterial blood by [facility] Pulse oximetry [place] Body height 2020-12-02 23:01:00 162.6 cm General acute hospital Body weight 2020-12-02 23:01:00 58.968 kg General acute hospital BMI 2020-12-02 23:01:00 22.31 kg/m2 General acute hospital Body mass index 2020-12-02 23:01:00 58.99 % Unive rsity of (BMI) [Percentile] [facility] ica Per age and sex Branch Systolic blood 2020-12-02 11:00:00 104 mm[Hg] Univer sity of [facility] Diastolic blood 2020-12-02 11:00:00 71 mm[Hg] Unive rsity of pressure [facility] Heart rate 2020-12-02 11:00:00 74 /min General acute hospital Respiratory rate 2020-12-02 11:00:00 18 /min Univ ersity of [place] [facility] Oxygen saturation in 2020-12-02 11:00:00 98 /min University of Arterial blood by [facility] Pulse oximetry Branch Body temperature 2020-12-02 05:55:00 36.44 [place]oya Univ ers[facility] [place] [facility] Body height 2020-12-02 05:55:00 162.6 cm [facility]i ty [facility] [place] [facility] Body weight 2020-12-02 05:55:00 58.968 kg [facility]i [facility] [place] [facility] BMI 2020-12-02 05:55:00 22.31 kg/m2 [facility] [place] [facility] Systolic blood 2020-11-30 08:00:00 100 mm[Hg] Univer sity of pressure [place] [facility] Diastolic blood 2020-11-30 08:00:00 66 mm[Hg] Unive rsity of pressure [place] [facility] Heart rate 2020-11-30 08:00:00 55 /min [facility] [place] [facility] Respiratory rate 2020-11-30 08:00:00 14 /min Univ ers[facility] [place] [facility] Oxygen saturation in 2020-11-30 08:00:00 100 /min University of Arterial blood by [facility] Pulse oximetry Branch Body height 2020-11-30 05:22:00 162.6 cm [facility] [place] [facility] Body weight 2020-11-30 05:22:00 58.968 kg [facility] [place] [facility] BMI 2020-11-30 05:22:00 22.31 kg/m2 [facility] [place] [facility] Body temperature 2020-11-30 05:10:00 36.44 [place] Univ ers[facility] [place] [facility] Body temperature 2019-05-29 05:43:00 36.61 [place] [facility] [place] [facility] Systolic blood 2019-05-29 04:50:00 118 mm[Hg] Univer sity of pressure [place] [facility] Diastolic blood 2019-05-29 04:50:00 86 mm[Hg] Unive rsity of pressure [place] [facility] Heart rate 2019-05-29 04:50:00 61 /min [facility] [place] [facility] Respiratory rate 2019-05-29 04:50:00 18 /min Univ ers[facility] [place] [facility] Oxygen saturation in 2019-05-29 04:50:00 99 /min [place] of Arterial blood by [facility] Pulse oximetry Branch Body weight 2019-05-29 02:56:37 70.308 kg General acute hospital Body temperature 2019-05-29 05:43:00 36.61 Lat[place] [facility] Systolic blood 2019-05-29 04:50:00 118 mm[Hg] Univer sity of pressure [facility] Diastolic blood 2019-05-29 04:50:00 86 mm[Hg] Unive rsity of pressure [facility] Heart rate 2019-05-29 04:50:00 61 /min General acute hospital Respiratory rate 2019-05-29 04:50:00 18 /min [facility] Oxygen saturation in 2019-05-29 04:50:00 99 /min [facility] Arterial blood by [facility] Pulse oximetry [place] Body weight 2019-05-29 02:56:37 70.308 kg General acute hospital Procedures Procedure Date / Time Performing Source Performed Clinician MR BRAIN W WO CONTRAST [facility]03 [facility] GALV ONLY - SYPHILIS IGG/IGM 2020-12-03 Jose Martin [facility] 09:57:00 [facility] E[facility]ROENCEPHALOGRAM 2020[facility]12-[facility] MR LUMBAR SPINE W WO CONTRAST 2020-12-02 Marquez Philippe [facility] 17:43:[address] [place] [address] LUMBAR SPINE WO CONTRAST 2020-12-02 Marquez Philippe [facility] Healthcare 16:47:15 Medical Branch PHOSPHORUS 2020-12-02 Jose Martin [facility] [place] 16:10:00 Medical Branch CREATINE KINASE 2020-12-02 [facility] 16:10[facility]00 [facility] MAGNESIUM 2020-12-02 [facility] 16:10[facility]00 [facility] VITAMIN B12, LEVEL 2020-12-02 Jose Martin [facility] 16:10:00 Medical Branch FOLATE 2020-12-02 [facility] Medical Branch BASIC METABOLIC PANEL (NA, K, 2020-12-02 Marquez Philippe [facility] CL, CO2, GLUCOSE, BUN, 16:10:00 Medical B ranch CREATININE, CA) CBC WITH DIFF 2020-12-02 Jose Martin [facility] [place] 16:10:00 [facility] HIV 1/2 AG-AB WITH REFLEX 2020-12-02 Marquez Philippe [facility] 16:10:[address] ABDOMEN PELVIS WO CONTRAST 2020-12-02 Jermain Ghosh [facility] 08:43:26 [facility] CREATINE KINASE 2020-12-02 Sj [facility] xa 07:13:00 [facility] COMP. METABOLIC PANEL (08340) 2020-12-02 Jermain Ghosh [facility] 07:13:00 [facility] THYROID STIMULATING HORMONE 2020-12-02 Jose Martin [facility] 07:13:00 [facility] POCT TEST 2020-12-02 Sj [facility] [place] 06:36:00 [facility] COVID-19 (ID NOW RAPID 2020-12-02 Sj [facility] TESTING) 06:35:00 [facility] URINE DRUG (IMMUNOASSAY) - 2020-12-02 Sj [facility] COMPREHENSIVE DRUG SCREEN W/O 06:32:00 Oh dical Branch REFLEX URINALYSIS 2020-12-02 Sj [facility] xa 06:31:00 [facility] CBC WITH DIFF 2020-12-02 Sj [facility] xa 06:15:00 [facility] LACTIC ACID WHOLE BLOOD 2020-12-02 Jermain Ghosh [facility] 06:14:00 [facility] Branch NOTICE OF PRIVACY PRACTICES 2020-12-02 Doctor Unassigned, [facility] 05:51:23 [place] [facility] CONSENT/REFUSAL FOR DIAGNOSIS 2020-12-02 Doctor Unassigned, [facility] AND TREATMENT 05:51:04 [place] Medical [place] CT HEAD WO CONTRAST 2020-11-30 Chauncey Smith [facility] 06:48:07 [facility] POCT GLUCOSE(AGE >30DAYS) 2020-11-30 Chauncey Smith [facility] 05:31:00 Medical Branch AC PANEL 20 + LACTIC ACID 2020-11-30 Chauncey Smith [facility] 05:31:00 Medical Branch POCT GLUCOSE (AUTOMATED) 2020-11-30 Chauncey Smith [facility] 05:30:00 Medical Branch POCT TEST 2020-11-30 Chauncey Smith [facility] 05:26:00 [facility] URINE DRUG (IMMUNOASSAY) - 2020-11-30 Chauncey Smith [facility] COMPREHENSIVE DRUG SCREEN 05:25:00 Medica l [place] URINALYSIS 2020-11-30 Chauncey Smith [facility] ex 05:25:00 Medical Branch COVID-19 (ID NOW RAPID 2020-11-30 Chauncey Smith [facility] TESTING) 05:25:00 Medical Branch MAGNESIUM 2020-11-30 Chauncey Smith [facility] ex 05:16:00 Medical Branch COMP. METABOLIC PANEL (17345) 2020-11-[address] [facility] 05:16:00 Medical Branch CBC WITH DIFF 2020-11-30 Chauncey Smith [facility] 05:16:00 Medical Branch CREATINE KINASE 2020-11-30 Chauncey Smith [facility] 05:15:00 [facility] NOTICE OF PRIVACY PRACTICES 2020-11-30 Doctor Unassigned, [facility] 05:01:00 [place] [facility] CT HEAD WO CONTRAST 2019-05-29 Alec Rivera [facility] 04:16:04 Medical Branch XR CERVICAL SPINE 3 VW 2019-05-29 Alec Rivera [facility] 04:15:52 Medical [place] NOTICE OF PRIVACY PRACTICES 2019-05-29 Doctor Unassigned, [facility] 03:47:53 [place] [facility] CONSENT/REFUSAL FOR DIAGNOSIS 2019-05-29 Doctor Unassigned, [facility] T[facility]ATMENT 03:47:41 [place] [facility] Encounters Start End Encounter Admission Attending Care Care Encounter Source Date/Time Date/Time Type Type Clinicians Facility Department ID 2021-01-21 Emergency X [facility] [id number] Univers 22:04:01 ity of [facility] 2021-01-[address] [facility] [id number] Univers 22:03:07 ity of [facility] 2021-01-[address] [facility] [id number] Univers 21:40:40 ity of [facility] 2020 [address] [facility] [id number] Univers 15:00:00 15:00:00 SARAHBRADY [id number] ity of [facility] 2020 [address] [facility] [id number] Univers 15:00:00 15:00:00 SARAHBRADY [place] ity [facility] 2020-12-02 2020-12-04 Emergency Little Santamraia [id number] Univers 09:18:00 10:50:00 Lazaro Mckeon [id number] i ty [facility] 4.2.7.2.686 Tramaine [phone] [place] 886882 Branch 2020-12-02 2020-12-02 Emergency AlvarezJanine mcgrath [facility] 1.2.840 [id number] Univers 00:47:00 09:12:00 Jermain Ghosh 350.1.13.10 ity Nicholas Carrion 4.2.7.2.686 [facility] [phone] [place] [address] Branch 2020-12-02 2020-12-02 Outpatient X SJ [facility] [id number] Univers 00:47:00 09:12:00 JERMAIN ity of [facility] 2020-11-30 2020-11-30 Emergency Luis [facility] [id number] Univers 00:08:00 04:02:00 Chauncey Farrell [id number] ity Shonda 4.2.7.2.686 [facility] [phone] [place] [id number] Branch 2020-11-30 2020-11-30 Orders Doctor FREGOSO [id number] Univers 00:00:00 00:00:00 Only Unassigned, JOSE [id number] ity of [facility] 4.2.7.2.686 Tramaine [id number] [facility] 009 Branch 2019-06-15 2019-06-[address] [facility] [id number] Univers 10:00:00 10:00:00 [id number] ity of [facility] 2019-06-15 2019-06-[address] [facility] [id number] Univers 10:00:00 10:00:00 ity of [facility] 2019-06-15 2019-06-[address] [facility] [id number] Univers 10:00:00 10:00:00 ity of [facility] 2019-06-15 2019-06-15 Telephone de [facility] [id number] Univers 00:00:00 00:00:00 Marcos Lerma [id number] ity of [facility] 4.2.7.2.686 [place] [facility] [id number] [facility] [address] [place] 2019-06-15 2019-06-15 Telephone de [facility] [id number] 00:00:00 00:00:00 Marcos Lerma [id number] Camila Pediatric 4.2.7.2.686 Clinic [id number] [facility] 2019-06-14 2019-06-[address] [facility] [id number] Univers 14:40:00 14:40:00 [id number] ity of [facility] 2019-06-14 2019-06-[address] [facility] [id number] Univers 14:40:00 14:40:00 ity of [facility] 2019-05-28 2019-05-28 Emergency NicoleBEDMINSTER, UTDENISE [id number] Univers 20:59:13 23:56:00 Alec Farrell 350.1.13.10 i ty of [place] 4.2.7.2.686 [facility] [id number] [facility] 084 Branch 2019-05-28 2019-05-28 Emergency X NICOLE [facility] ERT [id number] Univers 20:59:13 23:56:00 ALEC ity of [facility] 2019-05-28 2019-05-28 Emergency [place], [place] [id number] 20:59:13 23:56:00 Alec Farrell 350.1.13.[address] [place] [address] [id number] 084 2019-05-28 2019-05-28 Orders Doctor ILDEFONSO [id number] Univers 00:00:00 00:00:00 Only Unassigned, JOSE [id number] ity of [place] [facility] 4.2.7.2.686 [facility] [id number] [address] 2019-05-28 2019-05-28 Orders Doctor FREGOSO [id number] 00:00:00 00:00:00 Only Unassigned, JOSE 350.1.13.10 [place] [facility] 4.2.7.2.686 [id number] Results Test Description Test Time Test Comments Results Result Comments Source GAL[facility] ONLY - SYPHILIS IGG/IGM 2020-12-03 15:29:02 Test Item Value Reference Range Interpretation Comme nts Syphilis IgG/IgM (test code = Non-reactive Non-reactive 52071-4) VIRIDIANA (test code = VIRIDIANA) Non-reactive - No serologic evidence of T. pallidum infection. Cannot exclude incubating or early syphilis. Submit a second specimen in 2-4 weeks if syphilis is clinically suspected. Equivocal - Further testing to follow. Reactive - Further testing to follow. Lab Interpretation (test code = Normal 72334-8) [facility] [id number] 15:29:02 Test Item Value Reference Range Interpretation Comments Syphilis IgG/IgM (test Non-reactive Non-reactive code = 99904-5) VIRIDIANA (test code = VIRIDIANA) Non-reactive - No serologic evidence of T. pallidum infection. Cannot exclude incubating or early syphilis. Submit a second specimen in 2-4 weeks if syphilis is clinically suspected. Equivocal - Further testing to follow. Reactive - Further testing to follow. Lab Interpretation (test Normal code = 20103-4) [facility], [id number] 23:31:33 Test Item Value Reference Range Interpretation Comments VIT B12 (test code = 367 pg/mL 240-930 2571994267) VIRIDIANA (test code = VIRIDIANA) Biotin has been reported to cause a positive bias, interpret results relative to patient's use of biotin. Lab Interpretation (test Normal code = 40473-8) [facility] B12, [id number] 23:31:33 Test Item Value Reference Range Interpretation Comments VIT B12 (test code = 367 pg/mL 240-930 2669285082) VIRIDIANA (test code = VIRIDIANA) Biotin has been reported to cause a positive bias, interpret results relative to patient's use of biotin. Lab Interpretation (test Normal code = 42650-6) [facility]-AB WITH [id number] 22:52:15 Test Item Value Reference Range Interpretation Comments HIV Negative Negative Semi-quantitative (test code = 67647-3) VIRIDIANA (test code = Non-reactive for HIV-1 VIRIDIANA) antigen and HIV-1/HIV-2 antibodies. ?No laboratory evidence of HIV infection. ?Repeat in 2-4 weeks if acute HIV infection is suspected. [facility]-AB WITH [id number] 22:52:15 Test Item Value Reference Range Interpretation Comments HIV Negative Negative Semi-quantitative (test code = 24157-1) VIRIDIANA (test code = Non-reactive for HIV-1 VIRIDIANA) antigen and HIV-1/HIV-2 antibodies. ?No laboratory evidence of HIV infection. ?Repeat in 2-4 weeks if acute HIV infection is suspected. [facility] 21:55:01 Test Item Value Reference Range Interpretation Comments FOLATE SER (test code = 10.1 ng/mL 3.0-20.0 1472371290) Lab Interpretation (test code = Normal 95746-8) [facility] 21:55:01 Test Item Value Reference Range Interpretation Comments FOLATE SER (test code = 10.1 ng/mL 3.0-20.0 5896827687) Lab Interpretation (test code = Normal 97491-3) [facility] [id number] 20:12:25 Test Item Value Reference Range Interpretation Comments MAGNESIUM (test code = 1145680146) 1.6 mg/dL 1.7-2.4 L Lab Interpretation (test code = Abnormal 52398-0) [facility] [id number] 20:12:25 Test Item Value Reference Range Interpretation Comments MAGNESIUM (test code = 9234440785) 1.6 mg/dL 1.7-2.4 L Lab Interpretation (test code = Abnormal 82454-6) [facility] (Na, K, Cl, CO2, Glucose, BUN, Creatinine, Ca)2020-12-02 20:12:19 Test Item Value Reference Range Interpretation Comments NA (test code = 144 mmol/L 135-145 8837883415) K (test code = 3.3 mmol/L 3.5-5.0 L 1377491700) CL (test code = 114 mmol/L 98-108 H 7326344540) CO2 TOTAL (test code = 21 mmol/L 23-31 L 7545589707) AGAP (test code = 2-16 8461073506) BUN (test code = 4 mg/dL 7-23 L 0257454333) GLUCOSE (test code = 71 mg/dL 70-110 2536242602) CREATININE (test code = 0.57 mg/dL 0.50-1.04 9150304783) CALCIUM (test code = 7.8 mg/dL 8.6-10.6 L 0884126977) eGFR (test code = mL/min/1.73m2 0953023036) VIRIDIANA (test code = VIRIDIANA) Association of [...] tests). Lab Interpretation Abnormal (test code = 64491-7) [facility] Metabolic Panel (Na, K, Cl, CO2, Glucose, BUN, Creatinine, Ca)2020-12-02 20:12:19 Test Item Value Reference Range Interpretation Comments NA (test code = 144 mmol/L 135-145 5145239779) K (test code = 3.3 mmol/L 3.5-5.0 L 0150101282) CL (test code = 114 mmol/L 98-108 H 0999827668) CO2 TOTAL (test code = 21 mmol/L 23-31 L 6083674187) AGAP (test code = 2-16 1589261942) BUN (test code = 4 mg/dL 7-23 L 1098002003) GLUCOSE (test code = 71 mg/dL 70-110 2982137844) CREATININE (test code = 0.57 mg/dL 0.50-1.04 4738640197) CALCIUM (test code = 7.8 mg/dL 8.6-10.6 L 6819908117) eGFR (test code = mL/min/1.73m2 6222982406) VIRIDIANA (test code = VIRIDIANA) Association of [...] tests). Lab Interpretation Abnormal (test code = 25168-7) [facility] [id number] 20:10:53 Test Item Value Reference Range Interpretation Comments PHOSPHORUS (test code = 6859290858) 3.7 mg/dL 2.5-5.0 Lab Interpretation (test code = Normal 46801-6) [facility] [id number] 20:10:53 Test Item Value Reference Range Interpretation Comments PHOSPHORUS (test code = 7457214769) 3.7 mg/dL 2.5-5.0 Lab Interpretation (test code = Normal 51839-1) [facility] ([facility])2020-12-02 20:10:47 Test Item Value Reference Range Interpretation Comments CK (test code = 6097412911) 59 U/L 33-194 Lab Interpretation (test code = Normal 00354-6) [facility] (CK)2020-12-02 20:10:47 Test Item Value Reference Range Interpretation Comments CK (test code = 3420677001) 59 U/L 33-194 Lab Interpretation (test code = Normal 66506-5) [facility] with [id number] 20:10:42 Test Item Value Reference Range Interpretation Comments WBC (test code = See_Comment [Automated 6590-2) message] The sy stem which generated this [...] RDW-SD (test code = 41.4 fL 38.5-49.0 22414-7) RDW-CV (test code = 13.2 % 11.5-14.0 788-0) PLT (test code = See_Comment L [Automated 777-3) message] The sy stem which generated this result transmitted reference range : 135 - 361 10*3/ ?L. The reference r lorene was not used to interpret this result as normal/abnormal . MPV (test code = 13.3 fL 9.4-13.3 75790-9) NRBC/100 WBC (test See_Comment [Automat ed code = 3488914877) message] The system which generated this result transmitted reference range : 0.0 - 10.0 /100 WBCs. The refer ence range was not u sed to interpret th is result as normal/abnormal . NRBC x10^3 (test code <0.01 See_Comment [Auto mated = 3358689587) message] The s ystem which generated this result transmitted reference range : 10*3/?L. The reference range was not used to interpret this result as normal/abnormal . GRAN MAT (NEUT) % 48.7 % (test code = 770-8) IMM GRAN % (test code 0.40 % = 8915323260) LYMPH % (test code = 39.4 % 736-9) MONO % (test code = 8.9 % 5905-5) EOS % (test code = 2.2 % 713-8) BASO % (test code = 0.4 % 706-2) GRAN MAT x10^3(ANC) 2.67 10*3/uL 1.50-10.30 (test code = 3366198507) IMM GRAN x10^3 (test <0.03 0.00-0.06 code = 1588903686) LYMPH x10^3 (test code 2.16 10*3/uL 0.70-7.40 = 731-0) MONO x10^3 (test code 0.49 10*3/uL 0.00-0.50 = 742-7) EOS x10^3 (test code = 0.12 10*3/uL 0.00-0.40 711-2) BASO x10^3 (test code <0.03 0.00-0.10 = 704-7) Lab Interpretation Abnormal (test code = 86669-2) [facility] with [id number] 20:10:42 Test Item Value Reference Range Interpretation Comments WBC (test code = See_Comment [Automated 6690-2) message] The sy stem which generated this result transmitted reference range : 4.50 - 13.50 10*3/?L. The reference range was not used to interpret this result as normal/abnormal . RBC (test code = See_Comment [Automated 479-8) message] The sy stem which generated this [...] RDW-SD (test code = 41.4 fL 38.5-49.0 78454-2) RDW-CV (test code = 13.2 % 11.5-14.0 788-0) PLT (test code = See_Comment L [Automated 777-3) message] The sy stem which generated this result transmitted reference range : 135 - 361 10*3/ ?L. The reference r lorene was not used to interpret this result as normal/abnormal . MPV (test code = 13.3 fL 9.4-13.3 26742-0) NRBC/100 WBC (test See_Comment [Automat ed code = 0729150587) message] The system which generated this result transmitted reference range : 0.0 - 10.0 /100 WBCs. The refer ence range was not u sed to interpret th is result as normal/abnormal . NRBC x10^3 (test code <0.01 See_Comment [Auto mated = 2431454909) message] The s ystem which generated this result transmitted reference range : 10*3/?L. The reference range was not used to interpret this result as normal/abnormal . GRAN MAT (NEUT) % 48.7 % (test code = 770-8) IMM GRAN % (test code 0.40 % = 6088583648) LYMPH % (test code = 39.4 % 736-9) MONO % (test code = 8.9 % 5905-5) EOS % (test code = 2.2 % 713-8) BASO % (test code = 0.4 % 706-2) GRAN MAT x10^3(ANC) 2.67 10*3/uL 1.50-10.30 (test code = 1642306555) IMM GRAN x10^3 (test <0.03 0.00-0.06 code = 0565670600) LYMPH x10^3 (test code 2.16 10*3/uL 0.70-7.40 = 731-0) MONO x10^3 (test code 0.49 10*3/uL 0.00-0.50 = 742-7) EOS x10^3 (test code = 0.12 10*3/uL 0.00-0.40 711-2) BASO x10^3 (test code <0.03 0.00-0.10 = 704-7) Lab Interpretation Abnormal (test code = 58062-7) [facility] [id number] 16:37:32 Test Item Value Reference Range Interpretation Comments TSH (test code = See_Comment Biotin has been 1512788754) reported to cau se a negative bias, interpret resul ts relative to pat ient's use of biotin. [Automated mess age] The system [employer] generated this result transmitted ref erence range: 0.45 - 4 .70 mIU/L. The refe rence range was not u sed to interpret this result as normal/abnor mal. Lab Interpretation (test Normal code = 30232-2) [facility] [id number] 16:37:32 Test Item Value Reference Range Interpretation Comments TSH (test code = See_Comment Biotin has been 1694646889) reported to cau se a negative bias, interpret resul ts relative to pat ient's use of biotin. [Automated mess age] The system [employer] generated this result transmitted ref erence range: 0.45 - 4 .70 mIU/L. The refe rence range was not u sed to interpret this result as normal/abnor mal. Lab Interpretation (test Normal code = 41490-3) [facility] (IMMUNOASSAY) - COMPREHENSIVE DRUG SCREEN W/O [id number] 07:41:34 Test Item Value Reference Range Interpretation Comments AMPHET (test code = Negative Negative 6998743082) FABIO U (test code = Negative Negative 3862748460) BENZO U (test code = Negative Negative 2876122933) Cocaine Metabolite (test Negative Negative code = 8128327747) METHADONE (test code = Negative Negative 4437081164) OPIATES (test code = Negative Negative 4618074941) PCP (test code = Negative Negative 5860103738) THC (test code = Presumptive Positive Negative A 8603992756) VIRIDIANA (test code = VIRIDIANA) Urine Drug [...] testing). Lab Interpretation (test Abnormal code = 91797-9) [facility]IM[facility] - COMPREHENSIVE DRUG SCREEN W/O [id number] 07:41:34 Test Item Value Reference Range Interpretation Comments AMPHET (test code = Negative Negative 4301892004) FABIO U (test code = Negative Negative 4988383390) BENZO U (test code = Negative Negative 0281763769) Cocaine Metabolite (test Negative Negative code = 1072901899) METHADONE (test code = Negative Negative 9394522662) OPIATES (test code = Negative Negative 2893265762) PCP (test code = Negative Negative 6560666009) THC (test code = Presumptive Positive Negative A 4964865459) VIRIDIANA (test code = VIRIDIANA) Urine Drug [...] testing). Lab Interpretation (test Abnormal code = 40993-4) [facility]OL[facility] PANEL (41434)2020-12-02 07:38:37 Test Item Value Reference Range Interpretation Comments NA (test code = 138 mmol/L 135-145 2637338837) K (test code = 3.8 mmol/L 3.5-5.0 3442249983) CL (test code = 108 mmol/L 98-108 3581351961) CO2 TOTAL (test code = 23 mmol/L 23-31 4867445440) AGAP (test code = 2-16 5218642279) BUN (test code = 5 mg/dL 7-23 L 4241160978) GLUCOSE (test code = 93 mg/dL 70-110 7970694900) CREATININE (test code = 0.61 mg/dL 0.50-1.04 3338257034) TOTAL BILI (test code = 0.7 mg/dL 0.1-1.7 6894854350) CALCIUM (test code = 8.6 mg/dL 8.6-10.6 2513611474) T PROTEIN (test code = 6.5 g/dL 6.3-8.2 6070724437) ALBUMIN (test code = 3.9 g/dL 3.5-5.0 3819685673) ALK PHOS (test code = 56 U/L 34-122 5970263614) ALTv (test code = 15 U/L 5-35 2-6) AST(SGOT) (test code = 28 U/L 13-40 9376398801) eGFR (test code = mL/min/1.73m2 0425847895) VIRIDIANA (test code = VIRIDIANA) Association of [...] tests). Lab Interpretation Abnormal (test code = 10068-5) [facility]. METABOLIC PANEL (66291)2020-12-02 07:38:37 Test Item Value Reference Range Interpretation Comments NA (test code = 138 mmol/L 135-145 8145668563) K (test code = 3.8 mmol/L 3.5-5.0 2478165239) CL (test code = 108 mmol/L 98-108 3082636479) CO2 TOTAL (test code = 23 mmol/L 23-31 1535428145) AGAP (test code = 2-16 7939940068) BUN (test code = 5 mg/dL 7-23 L 4018112173) GLUCOSE (test code = 93 mg/dL 70-110 9399489082) CREATININE (test code = 0.61 mg/dL 0.50-1.04 4240054309) TOTAL BILI (test code = 0.7 mg/dL 0.1-1.4 6510298551) CALCIUM (test code = 8.6 mg/dL 8.6-10.6 4261766245) T PROTEIN (test code = 6.5 g/dL 6.3-8.2 5517119297) ALBUMIN (test code = 3.9 g/dL 3.5-5.0 8079855947) ALK PHOS (test code = 56 U/L 34-122 8913482896) ALTv (test code = 15 U/L 5-35 1742-6) AST(SGOT) (test code = 28 U/L 13-40 1048274337) eGFR (test code = mL/min/1.73m2 9577510770) VIRIDIANA (test code = VIRIDIANA) Association of [...] tests). Lab Interpretation Abnormal (test code = 53233-1) [facility] [id number] 07:38:17 Test Item Value Reference Range Interpretation Comments CK (test code = 2365471646) 62 U/L 33-194 Lab Interpretation (test code = Normal 60657-9) [facility] [id number] 07:38:17 Test Item Value Reference Range Interpretation Comments CK (test code = 5986046632) 62 U/L 33-194 Lab Interpretation (test code = Normal 68992-3) [facility]UR[facility]IS2021-[facility]-12 07:07:10 Test Item Value Reference Range Interpretation Comments APPEARANCE (test code = Cloudy Clear A 8201359869) COLOR (test code = Yellow Yellow 0669866318) PH (test code = 4.8-8.0 6864272603) SP GRAVITY (test code = 1.003-1.030 4473872046) GLU U QUAL (test code = Normal Normal 7352757742) BLOOD (test code = Negative Negative 3356866112) KETONES (test code = 5 mg/dL Negative A 8455850402) PROTEIN (test code = 100 mg/dL Negative A 2887-8) UROBILIN (test code = 2.0 mg/dL Normal A 5124448230) BILIRUBIN (test code = Negative Negative 1329987778) NITRITE (test code = Negative Negative 7311771141) LEUK DENNIS (test code = 500/uL Negative A 7405539094) RBC/HPF (test code = See_Comment [Autom ated message] 8260256292) The system [employer] generated this result transmit carole reference range : 0 - 3 HPF. The refe rence range was not u sed to interpret th is result as normal/abnormal . WBC/HPF (test code = See_Comment H [Autom ated message] 5566579309) The system [employer] generated this result transmit carole reference range : 0 - 5 HPF. The refe rence range was not u sed to interpret th is result as normal/abnormal . BACTERIA (test code = Many Negative A 3953922483) MUCOUS (test code = Moderate Negative LPF A 7747308308) SQ EPITH (test code = HPF 8386976046) CA OXALATE (test code = See_Comment [Au tomated message] 1692604251) The system [employer] generated this result transmit carole reference range : <=1 HPF. The refere nce range was not u sed to interpret th is result as normal/abnormal . HYAL CAST (test code = See_Comment H [Aut omated message] 4503755246) The system [employer] generated this result transmit carole reference range : <=2 LPF. The refere nce range was not u sed to interpret th is result as normal/abnormal . Lab Interpretation (test Abnormal code = 09934-2) [facility] Test Item Value Reference Range Interpretation Comments APPEARANCE (test code = Cloudy Clear A 0964612586) COLOR (test code = Yellow Yellow 7505158296) PH (test code = 4.8-8.0 0145591936) SP GRAVITY (test code = 1.003-1.030 8056271527) GLU U QUAL (test code = Normal Normal 7974782839) BLOOD (test code = Negative Negative 3569416815) KETONES (test code = 5 mg/dL Negative A 1757513949) PROTEIN (test code = 100 mg/dL Negative A 2887-8) UROBILIN (test code = 2.0 mg/dL Normal A 4860380437) BILIRUBIN (test code = Negative Negative 8371653142) NITRITE (test code = Negative Negative 8605379558) LEUK DENNIS (test code = 500/uL Negative A 1971219903) RBC/HPF (test code = See_Comment [Autom ated message] 7306260691) The system [employer] generated this result transmit carole reference range : 0 - 3 HPF. The refe rence range was not u sed to interpret th is result as normal/abnormal . WBC/HPF (test code = See_Comment H [Autom ated message] 9672644569) The system [employer] generated this result transmit carole reference range : 0 - 5 HPF. The refe rence range was not u sed to interpret th is result as normal/abnormal . BACTERIA (test code = Many Negative A 6721247786) MUCOUS (test code = Moderate Negative LPF A 4742376040) SQ EPITH (test code = HPF 5744585081) CA OXALATE (test code = See_Comment [Au tomated message] 6344249225) The system [employer] generated this result transmit carole reference range : <=1 HPF. The refere nce range was not u sed to interpret th is result as normal/abnormal . HYAL CAST (test code = See_Comment H [Aut omated message] 7624503970) The system [employer] generated this result transmit carole reference range : <=2 LPF. The refere nce range was not u sed to interpret th is result as normal/abnormal . Lab Interpretation (test Abnormal code = 82579-5) [facility]ID [facility]2020-12-02 06:56:19 Test Item Value Reference Range Interpretation Comments SARS-CoV-2 Rapid ID NOW Not Detected Not Detected (test code = 63285-2) VIRIDIANA (test code = VIRIDIANA) ID NOW COVID-19 Assay is an isothermal nucleic acid amplification test intended for the qualitative detection of nucleic acid from SARS-CoV-2 viral RNA in nasopharyngeal (SOD STRIPPER) specimens. It is used under Emergency Use [...] indicated. Lab Interpretation Normal (test code = 19556-1) [facility]2020-12-02 06:56:19 Test Item Value Reference Range Interpretation Comments SARS-CoV-2 Rapid ID NOW Not Detected Not Detected (test code = 59327-3) VIRIDIANA (test code = VIRIDIANA) ID NOW COVID-19 Assay is an isothermal nucleic acid amplification test intended for the qualitative detection of nucleic acid from SARS-CoV-2 viral RNA in nasopharyngeal (SOD STRIPPER) specimens. It is used under Emergency Use [...] indicated. Lab Interpretation Normal (test code = 63770-2) [facility] WITH [id number] 06:42:15 Test Item Value Reference Range Interpretation Comments WBC (test code = See_Comment [Automated message] 7590-2) The system [employer] generated this result transmitted ref erence range: 4.50 - 1 3.50 10*3/?L. The re ference range was not u sed to interpret this result as normal/abnor mal. RBC (test code = See_Comment [Automated message] 149-8) The system [employer] generated this result transmitted ref erence range: [...] RDW-SD (test code 40.5 fL 38.5-49.0 = 07953-8) RDW-CV (test code 13.1 % 11.5-14.0 = 788-0) PLT (test code = See_Comment [Automated message] 777-3) The system whic h generated this result transmitted ref erence range: 135 - 36 1 10*3/?L. The re ference range was not u sed to interpret this result as normal/abnor mal. MPV (test code = 12.9 fL 9.4-13.3 89933-9) NRBC/100 WBC (test See_Comment [Automat ed message] code = 9468634781) The syste m which generated this result transmitted ref erence range: 0.0 - 10 .0 /100 WBCs. The refer ence range was not u sed to interpret this result as normal/abnor mal. NRBC x10^3 (test <0.01 See_Comment [Automated message] code = 7561128754) The syste m which generated this result transmitted ref erence range: 10*3/?L. The reference range was not used to interpr et this result as normal/abnormal . GRAN MAT (NEUT) % 63.7 % (test code = 770-8) IMM GRAN % (test 0.40 % code = 3726981516) LYMPH % (test code 27.4 % = 736-9) MONO % (test code 7.2 % = 5905-5) EOS % (test code = 1.0 % 713-8) BASO % (test code 0.3 % = 706-2) GRAN MAT 4.40 10*3/uL 1.50-10.30 x10^3(ANC) (test code = 8619093135) IMM GRAN x10^3 0.03 10*3/uL 0.00-0.06 (test code = 8225147708) LYMPH x10^3 (test 1.89 10*3/uL 0.70-7.40 code = 731-0) MONO x10^3 (test 0.50 10*3/uL 0.00-0.50 code = 742-7) EOS x10^3 (test 0.07 10*3/uL 0.00-0.40 code = 711-2) BASO x10^3 (test <0.03 0.00-0.10 code = 704-7) [facility] WITH [id number] 06:42:15 Test Item Value Reference Range Interpretation Comments WBC (test code = See_Comment [Automated message] 1890-2) The system [employer] generated this result transmitted ref erence range: 4.50 - 1 3.50 10*3/?L. The re ference range was not u sed to interpret this result as normal/abnor mal. RBC (test code = See_Comment [Automated message] 079-8) The system [employer] generated this result transmitted ref erence range: [...] RDW-SD (test code 40.5 fL 38.5-49.0 = 55087-3) RDW-CV (test code 13.1 % 11.5-14.0 = 788-0) PLT (test code = See_Comment [Automated message] 777-3) The system [employer] generated this result transmitted ref erence range: 135 - 36 1 10*3/?L. The re ference range was not u sed to interpret this result as normal/abnor mal. MPV (test code = 12.9 fL 9.4-13.3 99158-6) NRBC/100 WBC (test See_Comment [Automat ed message] code = 0437874999) The syste m which generated this result transmitted ref erence range: 0.0 - 10 .0 /100 WBCs. The refer ence range was not u sed to interpret this result as normal/abnor mal. NRBC x10^3 (test <0.01 See_Comment [Automated message] code = 0493152234) The syste m which generated this result transmitted ref erence range: 10*3/?L. The reference range was not used to interpr et this result as normal/abnormal . GRAN MAT (NEUT) % 63.7 % (test code = 770-8) IMM GRAN % (test 0.40 % code = 1426924154) LYMPH % (test code 27.4 % = 736-9) MONO % (test code 7.2 % = 5905-5) EOS % (test code = 1.0 % 713-8) BASO % (test code 0.3 % = 706-2) GRAN MAT 4.40 10*3/uL 1.50-10.30 x10^3(ANC) (test code = 2688784947) IMM GRAN x10^3 0.03 10*3/uL 0.00-0.06 (test code = 7252872749) LYMPH x10^3 (test 1.89 10*3/uL 0.70-7.40 code = 731-0) MONO x10^3 (test 0.50 10*3/uL 0.00-0.50 code = 742-7) EOS x10^3 (test 0.07 10*3/uL 0.00-0.40 code = 711-2) BASO x10^3 (test <0.03 0.00-0.10 code = 704-7) [facility] [id number] 06:36:00 Test Item Value Reference Range Interpretation Comments POCT PREG (test code = 1605) neg On board controls acceptable with yes C Line (test code = 3574) POCT PREG LOT # (test code = [id number]) POCT PREG TEST DATE (test code = 3576) Lab Interpretation (test code = Normal 50134-5) [facility] [id number] 06:36:00 Test Item Value Reference Range Interpretation Comments POCT PREG (test code = 1605) neg On board controls acceptable with yes C Line (test code = 3574) POCT PREG LOT # (test code = [id number]) POCT PREG TEST DATE (test code = 3576) Lab Interpretation (test code = Normal 15322-9) [facility] [id number] 06:31:07 Test Item Value Reference Range Interpretation Comments LACTIC ACID (test code = 2.66 mmol/L 0.50-2.20 H 7530338585) Lab Interpretation (test code = Abnormal 94264-7) [facility] [id number] 06:31:07 Test Item Value Reference Range Interpretation Comments LACTIC ACID (test code = 2.66 mmol/L 0.50-2.20 H 8891808084) Lab Interpretation (test code = Abnormal 21119-1) [facility] [id number] 08:22:54 Test Item Value Reference Range Interpretation Comments CK (test code = 8645383183) 101 U/L 33-194 Lab Interpretation (test code = Normal 92419-0) [facility] [id number] 08:22:54 Test Item Value Reference Range Interpretation Comments CK (test code = 8473624801) 101 U/L 33-194 Lab Interpretation (test code = Normal 56457-8) [facility] HEAD WO [id number] 07:07:23 Impression: No CT evidence for acute intracranial abnormality. RL: 460 AFC: [id number] Ordering physician: CHAUNCEY SMITH Indication: Altered level [...] evidence for acute intracranial abnormal ity.RL: 460AFC: [id number] signed by Pooja Rowland MD, PhD at 11/30/2020 2:07 [facility]CT [facility] WO [id number] 07:07:23Impression: No CT evidence for acute intracranial abnormality. RL: 460 AFC: [id number] Ordering physician: CHAUNCEY SMITH Indication: Altered level [...] evidence for acute intracranial abnormal ity.RL: 460AFC: [id number] signed by Pooja Rowland MD, PhD at 11/30/2020 2:07 AMUnHeref[facility] CenterDRUG SCREEN PANEL 2 URINE 2020-11-30 05:54:09 Test Item Value Reference Range Interpretation Comments AMPHET (test code = Negative Negative 6479147192) FABIO U (test code = Negative Negative 6356075912) BENZO U (test code = Presumptive Positive Negative A 0272079090) Cocaine Metabolite (test Negative Negative code = 1414892908) METHADONE (test code = Negative Negative 1830632556) OPIATES (test code = Negative Negative 9489299623) PCP (test code = Negative Negative 5245710001) THC (test code = Presumptive Positive Negative A 3611997030) VIRIDIANA (test code = VIRIDIANA) Urine Drug [...] testing). Lab Interpretation (test Abnormal code = 88832-1) [facility] [id number] 05:54:09 Test Item Value Reference Range Interpretation Comments AMPHET (test code = Negative Negative 4482454230) FABIO U (test code = Negative Negative 5009495509) BENZO U (test code = Presumptive Positive Negative A 0155423407) Cocaine Metabolite (test Negative Negative code = 9094126156) METHADONE (test code = Negative Negative 2359470798) OPIATES (test code = Negative Negative 6417839633) PCP (test code = Negative Negative 0174299796) THC (test code = Presumptive Positive Negative A 9872999281) VIRIDIANA (test code = VIRIDIANA) Urine Drug [...] testing). Lab Interpretation (test Abnormal code = 30889-7) [facility]-19 (ID NOW RAPID TESTING)2020-11-30 05:49:31 Test Item Value Reference Range Interpretation Comments SARS-CoV-2 Rapid ID NOW Not Detected Not Detected (test code = 22609-9) VIRIDIANA (test code = VIRIDIANA) ID NOW COVID-19 Assay is an isothermal nucleic acid amplification test intended for the qualitative detection of nucleic acid from SARS-CoV-2 viral RNA in nasopharyngeal (SOD STRIPPER) specimens. It is used under Emergency Use [...] indicated. Lab Interpretation Normal (test code = 31171-6) [facility]-19 (ID NOW RAPID TESTING)2020-11-30 05:49:31 Test Item Value Reference Range Interpretation Comments SARS-CoV-2 Rapid ID NOW Not Detected Not Detected (test code = 08623-5) VIRIDIANA (test code = VIRIDIANA) ID NOW COVID-19 Assay is an isothermal nucleic acid amplification test intended for the qualitative detection of nucleic acid from SARS-CoV-2 viral RNA in nasopharyngeal (SOD STRIPPER) specimens. It is used under Emergency Use [...] indicated. Lab Interpretation Normal (test code = 23638-2) [facility] 05[facility]49:21 Test Item Value Reference Range Interpretation Comments APPEARANCE (test code = Hazy Clear A 3483625314) COLOR (test code = Lazara Yellow A 2077013156) PH (test code = 4.8-8.0 5868267978) SP GRAVITY (test code = 1.003-1.030 3496567529) GLU U QUAL (test code = Normal Normal 6226214335) BLOOD (test code = Negative Negative Interfere nce from 1727633361) ascorbic acid m ay cause false neg ative results. KETONES (test code = 20 mg/dL Negative A 8419339958) PROTEIN (test code = 30 mg/dL Negative A 2887-8) UROBILIN (test code = 4.0 mg/dL Normal A 7883530496) BILIRUBIN (test code = Negative Negative 0856928734) NITRITE (test code = Negative Negative 3076637132) LEUK DENNIS (test code = 500/uL Negative A 9842241790) RBC/HPF (test code = See_Comment H [Autom ated message] 4385616663) The system [employer] generated this result transmitted ref erence range: 0 - 3 HP F. The reference range was not used to int erpret this result as normal/abnormal . WBC/HPF (test code = See_Comment H [Autom ated message] 4710136674) The system [employer] generated this result transmitted ref erence range: 0 - 5 HP F. The reference range was not used to int erpret this result as normal/abnormal . BACTERIA (test code = Few Negative A 9104098667) MUCOUS (test code = Slight Negative LPF A 3469980758) SQ EPITH (test code = HPF 5275922790) Lab Interpretation Abnormal (test code = 16197-9) [facility] 05:49:21 Test Item Value Reference Range Interpretation Comments APPEARANCE (test code = Hazy Clear A 1839510475) COLOR (test code = Lazara Yellow A 2740140710) PH (test code = 4.8-8.0 5820602219) SP GRAVITY (test code = 1.003-1.030 6877410198) GLU U QUAL (test code = Normal Normal 9812371852) BLOOD (test code = Negative Negative Interfere nce from 1268292708) ascorbic acid m ay cause false neg ative results. KETONES (test code = 20 mg/dL Negative A 0242883817) PROTEIN (test code = 30 mg/dL Negative A 2887-8) UROBILIN (test code = 4.0 mg/dL Normal A 5848876741) BILIRUBIN (test code = Negative Negative 1252818163) NITRITE (test code = Negative Negative 7368820539) LEUK DENNIS (test code = 500/uL Negative A 8094313374) RBC/HPF (test code = See_Comment H [Autom ated message] 7807247393) The system [employer] generated this result transmitted ref erence range: 0 - 3 HP F. The reference range was not used to int erpret this result as normal/abnormal . WBC/HPF (test code = See_Comment H [Autom ated message] 6184287125) The system [employer] generated this result transmitted ref erence range: 0 - 5 HP F. The reference range was not used to int erpret this result as normal/abnormal . BACTERIA (test code = Few Negative A 7069391407) MUCOUS (test code = Slight Negative LPF A 2687437866) SQ EPITH (test code = HPF 9753738801) Lab Interpretation Abnormal (test code = 84531-3) [facility] 05:47:51 Test Item Value Reference Range Interpretation Comments MAGNESIUM (test code = 4612323583) 2.1 mg/dL 1.7-2.4 Lab Interpretation (test code = Normal 50753-4) [facility] 05:47:51 Test Item Value Reference Range Interpretation Comments MAGNESIUM (test code = 4154201380) 2.1 mg/dL 1.7-2.4 Lab Interpretation (test code = Normal 22562-5) [facility]COM. METABOLIC PANEL (91635)2020-11-30 05:47:35 Test Item Value Reference Range Interpretation Comments NA (test code = 139 mmol/L 135-145 0803260920) K (test code = 3.4 mmol/L 3.5-5.0 L 8770648970) CL (test code = 105 mmol/L 98-108 8573024004) CO2 TOTAL (test code = 24 mmol/L 23-31 1337922910) AGAP (test code = 2-16 5289424682) BUN (test code = 8 mg/dL 7-23 9607958858) GLUCOSE (test code = 84 mg/dL 70-110 6516423534) CREATININE (test code = 0.70 mg/dL 0.50-1.04 3348071335) TOTAL BILI (test code = 0.6 mg/dL 0.1-1.6 9505149001) CALCIUM (test code = 9.3 mg/dL 8.6-10.6 1756770954) T PROTEIN (test code = 7.7 g/dL 6.3-8.2 0431765419) ALBUMIN (test code = 4.6 g/dL 3.5-5.0 5333372142) ALK PHOS (test code = 76 U/L 34-122 7511777002) ALTv (test code = 19 U/L 5-35 1742-6) AST(SGOT) (test code = 25 U/L 13-40 3199496079) eGFR (test code = mL/min/1.73m2 8759775402) VIRIDIANA (test code = VIRIDIANA) Association of [...] tests). Lab Interpretation Abnormal (test code = 78822-0) [facility]. METABOLIC PANEL (13239)2020-11-30 05:47:35 Test Item Value Reference Range Interpretation Comments NA (test code = 139 mmol/L 135-145 4273330666) K (test code = 3.4 mmol/L 3.5-5.0 L 5190935641) CL (test code = 105 mmol/L 98-108 0269536358) CO2 TOTAL (test code = 24 mmol/L 23-31 2155734208) AGAP (test code = 2-16 8008330912) BUN (test code = 8 mg/dL 7-23 7074170705) GLUCOSE (test code = 84 mg/dL 70-110 6667097916) CREATININE (test code = 0.70 mg/dL 0.50-1.04 3932967363) TOTAL BILI (test code = 0.6 mg/dL 0.1-1.1 4293374822) CALCIUM (test code = 9.3 mg/dL 8.6-10.6 8711157726) T PROTEIN (test code = 7.7 g/dL 6.3-8.2 2104497796) ALBUMIN (test code = 4.6 g/dL 3.5-5.0 2950013055) ALK PHOS (test code = 76 U/L 34-122 8857116957) ALTv (test code = 19 U/L 5-35 1742-6) AST(SGOT) (test code = 25 U/L 13-40 5383868459) eGFR (test code = mL/min/1.73m2 1195739070) VIRIDIANA (test code = VIRIDIANA) Association of [...] tests). Lab Interpretation Abnormal (test code = 28651-1) [facility]2020-11-30 05:45:23 Test Item Value Reference Range Interpretation Comments POCT GLU (test code = 6881461059) 83 mg/dL 70-110 Lab Interpretation (test code = Normal 88998-3) [facility]2020-11-30 05:45:23 Test Item Value Reference Range Interpretation Comments POCT GLU (test code = 6195772217) 83 mg/dL 70-110 Lab Interpretation (test code = Normal 63308-7) [facility] + LACTIC [id number] 05:35:20 Test Item Value Reference Range Interpretation Comments PH (test code = 2) 7.35-7.45 PCO2 (test code = See_Comment [Automat ed 3512661979) message] The sy stem which generated this result transmitted reference range : 35 - 45 mmHg. The reference range was not used to interpret this result as normal/abnormal . PO2 (test code = See_Comment H [Automated 1917083874) message] The sy stem which generated this result transmitted reference range : 80 - 100 mmHg. The reference range was not used to interpret this result as normal/abnormal . HCO3 (test code = See_Comment [Automate d 9054242492) message] The sy stem which generated this result transmitted reference range : 22 - 26 mEq/L. The reference range was not used to interpret this result as normal/abnormal . BE (test code = See_Comment [Automated 6022784489) message] The sy stem which generated this result transmitted reference range : -3.0 - 3.0 mEq/ L. The reference r lorene was not used to interpret this result as normal/abnormal . THB (test code = 13.4 g/dL 12.0-16.0 5889685308) %O2HB (test code = 98.5 % 94.0-99.0 8735881972) %COHB ART (test code = 0.0 % 0.0-1.5 9381262038) %METHB ART (test code = 0.3 % 0.4-1.5 L 2000918349) VOL%O2 ART (test code = 18.8 % 15.0-23.0 6155379130) NA (test code = 137 mmol/L 135-145 5825958255) K+ (test code = 3.5 mmol/L 3.5-5.0 8444197587) AC CA IONZ (test code = 4.60 mg/dL 4.50-5.30 5058826553) GLUCOSE (test code = 81 mg/dL 70-110 6338418724) LACTIC ACID (test code 0.87 mmol/L 0.50-2.20 = 3939898297) Lab Interpretation Abnormal (test code = 53236-1) [facility] + LACTIC [id number] 05:35:20 Test Item Value Reference Range Interpretation Comments PH (test code = 2) 7.35-7.45 PCO2 (test code = See_Comment [Automat ed 8084138561) message] The sy stem which generated this result transmitted reference range : 35 - 45 mmHg. The reference range was not used to interpret this result as normal/abnormal . PO2 (test code = See_Comment H [Automated 3857703394) message] The sy stem which generated this result transmitted reference range : 80 - 100 mmHg. The reference range was not used to interpret this result as normal/abnormal . HCO3 (test code = See_Comment [Automate d 2213465547) message] The sy stem which generated this result transmitted reference range : 22 - 26 mEq/L. The reference range was not used to interpret this result as normal/abnormal . BE (test code = See_Comment [Automated 5492224787) message] The sy stem which generated this result transmitted reference range : -3.0 - 3.0 mEq/ L. The reference r lorene was not used to interpret this result as normal/abnormal . THB (test code = 13.4 g/dL 12.0-16.0 5330445751) %O2HB (test code = 98.5 % 94.0-99.0 8657120619) %COHB ART (test code = 0.0 % 0.0-1.5 4483559767) %METHB ART (test code = 0.3 % 0.4-1.5 L 3018532198) VOL%O2 ART (test code = 18.8 % 15.0-23.0 2690541374) NA (test code = 137 mmol/L 135-145 5406753764) K+ (test code = 3.5 mmol/L 3.5-5.0 4311187626) AC CA IONZ (test code = 4.60 mg/dL 4.50-5.30 8457044960) GLUCOSE (test code = 81 mg/dL 70-110 9268106713) LACTIC ACID (test code 0.87 mmol/L 0.50-2.20 = 7742148092) Lab Interpretation Abnormal (test code = 26264-1) [facility] WITH [id number] 05:33:34 Test Item Value Reference Range Interpretation Comments WBC (test code = See_Comment [Automated 5290-2) message] The sy stem which generated this [...] RDW-SD (test code = 41.1 fL 38.5-49.0 50685-4) RDW-CV (test code = 13.2 % 11.5-14.0 788-0) PLT (test code = See_Comment [Automated 777-3) message] The sy stem which generated this result transmitted reference range : 135 - 361 10*3/ ?L. The reference r lorene was not used to interpret this result as normal/abnormal . MPV (test code = 12.5 fL 9.4-13.3 10252-0) NRBC/100 WBC (test See_Comment [Automat ed code = 8509945245) message] The system which generated this result transmitted reference range : 0.0 - 10.0 /100 WBCs. The refer ence range was not u sed to interpret th is result as normal/abnormal . NRBC x10^3 (test code <0.01 See_Comment [Auto mated = 1693127722) message] The s ystem which generated this result transmitted reference range : 10*3/?L. The reference range was not used to interpret this result as normal/abnormal . GRAN MAT (NEUT) % 59.1 % (test code = 770-8) IMM GRAN % (test code 0.40 % = 8964119902) LYMPH % (test code = 31.7 % 736-9) MONO % (test code = 7.0 % 5905-5) EOS % (test code = 1.3 % 713-8) BASO % (test code = 0.5 % 706-2) GRAN MAT x10^3(ANC) 4.58 10*3/uL 1.50-10.30 (test code = 2237637116) IMM GRAN x10^3 (test 0.03 10*3/uL 0.00-0.06 code = 4128779870) LYMPH x10^3 (test code 2.45 10*3/uL 0.70-7.40 = 731-0) MONO x10^3 (test code 0.54 10*3/uL 0.00-0.50 H = 742-7) EOS x10^3 (test code = 0.10 10*3/uL 0.00-0.40 711-2) BASO x10^3 (test code 0.04 10*3/uL 0.00-0.10 = 704-7) Lab Interpretation Abnormal (test code = 99576-0) [facility] WITH [id number] 05:33:34 Test Item Value Reference Range Interpretation Comments WBC (test code = See_Comment [Automated 7190-2) message] The sy stem which generated this result transmitted reference range : 4.50 - 13.50 10*3/?L. The reference range was not used to interpret this result as normal/abnormal . RBC (test code = See_Comment [Automated 201-8) message] The sy stem which generated this [...] RDW-SD (test code = 41.1 fL 38.5-49.0 77648-5) RDW-CV (test code = 13.2 % 11.5-14.0 788-0) PLT (test code = See_Comment [Automated 777-3) message] The sy stem which generated this result transmitted reference range : 135 - 361 10*3/ ?L. The reference r lorene was not used to interpret this result as normal/abnormal . MPV (test code = 12.5 fL 9.4-13.3 36513-1) NRBC/100 WBC (test See_Comment [Automat ed code = 4158672857) message] The system which generated this result transmitted reference range : 0.0 - 10.0 /100 WBCs. The refer ence range was not u sed to interpret th is result as normal/abnormal . NRBC x10^3 (test code <0.01 See_Comment [Auto mated = 3932944460) message] The s ystem which generated this result transmitted reference range : 10*3/?L. The reference range was not used to interpret this result as normal/abnormal . GRAN MAT (NEUT) % 59.1 % (test code = 770-8) IMM GRAN % (test code 0.40 % = 0237357374) LYMPH % (test code = 31.7 % 736-9) MONO % (test code = 7.0 % 5905-5) EOS % (test code = 1.3 % 713-8) BASO % (test code = 0.5 % 706-2) GRAN MAT x10^3(ANC) 4.58 10*3/uL 1.50-10.30 (test code = 4435687646) IMM GRAN x10^3 (test 0.03 10*3/uL 0.00-0.06 code = [id number]) LYMPH x10^3 (test code 2.45 10*3/uL 0.70-7.40 = 731-0) MONO x10^3 (test code 0.54 10*3/uL 0.00-0.50 H = 742-7) EOS x10^3 (test code = 0.10 10*3/uL 0.00-0.40 711-2) BASO x10^3 (test code 0.04 10*3/uL 0.00-0.10 = 704-7) Lab Interpretation Abnormal (test code = 10834-3) [facility] GLUCOSE(AGE >30DAYS)2020-11-30 05:31:00 Test Item Value Reference Range Interpretation Comments POCT Glu (age>30days) (test code = 83 mg/dL 70-110 3342) Lab Interpretation (test code = Normal 48220-3) [facility] GLUCOSE(AGE >30DAYS)2020-11-30 05:31:00 Test Item Value Reference Range Interpretation Comments POCT Glu (age>30days) (test code = 83 mg/dL 70-110 3342) Lab Interpretation (test code = Normal 47048-5) [facility] [id number] 05:26:00 Test Item Value Reference Range Interpretation Comments POCT PREG (test code = 1605) NEGATIVE On board controls acceptable with POSITIVE C Line (test code = 3574) POCT PREG LOT # (test code = 3575) [id number] POCT PREG TEST DATE (test 03/22/2022 code = 3576) Lab Interpretation (test code = Normal 45672-5) [facility] [id number] 05:26:00 Test Item Value Reference Range Interpretation Comments POCT PREG (test code = 1605) NEGATIVE On board controls acceptable with POSITIVE C Line (test code = 3574) POCT PREG LOT # (test code = 3575) [id number] POCT PREG TEST DATE (test 03/22/2022 code = 3576) Lab Interpretation (test code = Normal 16179-9) [facility] HEAD WO [id number] 04:38:43 1. No intracranial abnormalities.2. Left parietal [...] within normal limits for the patient's age. [facility], Radiant Results Inft User - [...] with no skull fractureRL: [id number] of report [facility] 3 [id number] 04:36:57Unremarkable cervical spine radiographs RL: [id number] End [...] normal.IMPRESSIONUnremarkable cervical spine radiographsRL: [id number] of report [facility]"
[2021-06-24 15:06] LABS: Absolute Lymphocytes (CBC) 1.6 K/uL (0.7-4.9); Hematocrit 39.7 % (36.0-45.0); Lymphocytes % 34.5 % (15.3-44.8); MPV 10.1 fL (7.6-11.3); RBC Red Blood Cell Count 4.58 M/uL (3.86-4.86)
[2021-06-24 15:09] LABS: Urine Blood Trace-intact (Negative); Urine Glucose Negative (Negative); Urine Protein Negative (Negative); Urine pH 7.5 (5.0-7.0)
[2021-06-24] MEDS ORDERED: levETIRAcetam 1,000 MG in NA CHLORIDE 0.9% 100 ML IV ONE (15:15)
[2021-06-24] MEDS ORDERED: NA CHLORIDE 0.9% 1,000 ML ONE (15:19)
[2021-06-24 15:24] LABS: BUN Blood Urea Nitrogen 6 mg/dL (7-18); Bicarbonate 25 mmol/L (21-32); Glucose Level 93 mg/dL (74-106); Potassium 4.2 mmol/L (3.5-5.1); Sodium Level 141 mmol/L (136-145)
[2021-06-24 15:27] LABS: Barbiturates NEGATIVE (NEGATIVE); Benzodiazepines NEGATIVE (NEGATIVE); Cocaine NEGATIVE (NEGATIVE); METHAMPHETAM NEGATIVE (NEGATIVE); Methadone NEGATIVE (NEGATIVE); Opiates NEGATIVE (NEGATIVE); Phencyclidine NEGATIVE (NEGATIVE); THC Cannibis POSITIVE (NEGATIVE)
--- NOTE | 2021-06-24 16:13 | EDPHYS ---
Physician Documentation [facility] Name: Sofie Jensen Age: 20 yrs Sex: Female : 2000 Arrival Date: 06/24/2021 Time: 14:41 Bed 24 Private MD: ED Physician Eduardo Bill HPI: 06/24 15:29 This 20 yrs old Female presents to ER via EMS with complaints of seizure. rn 15:29 The patient presents after having a single isolated seizure. Character of seizure(s): rn Loss of consciousness: it is not known if the patient experienced loss of consciousness, Motor activity: generalized, Incontinence: none, Apnea: the patient did not experience apnea, Circulation: the patient did not experience evidence of pulse disturbance, Eye movements: are unknown. Seizure onset: just prior to arrival. Associated injury: The patient did not suffer any apparent associated injury. Current symptoms: confusion, headache. The patient has experienced similar episodes in the past. The patient has been recently seen at the [facility] Emergency Department. Pt states has hx of seizures, never put on seizure medication, seen here a few times, was supposed to f/u with neurology but never did. NO trauma. No drug use. No fever. . Historical: - Allergies: 14:50 No Known Allergies; ab2 - PMHx: 14:50 Asthma; Seizure; ab2 - PSHx: 14:50 None; ab2 - Immunization history:: Adult Immunizations up to date. - Social history:: Smoking status: Patient reports the use of cigarette tobacco products, smokes one-half pack cigarettes per day. - Family history:: not pertinent. - Hospitalizations: : No recent hospitalization is reported. ROS: 15:29 Constitutional: Negative for fever, chills, and weight loss, Eyes: Negative for injury, rn pain, redness, and discharge, Neck: Negative for injury, pain, and swelling, Cardiovascular: Negative for chest pain, palpitations, and edema, Respiratory: Negative for shortness of breath, cough, wheezing, and pleuritic chest pain, Abdomen/GI: Negative for abdominal pain, nausea, vomiting, diarrhea, and constipation, Back: Negative for injury and pain, : Negative for injury, bleeding, discharge, and swelling, MS/Extremity: Negative for injury and deformity, Skin: Negative for injury, rash, and discoloration, Neuro: Negative for headache, weakness, numbness, tingling Exam: 15:29 Constitutional: This is a well developed, well nourished patient who is awake, alert, rn and in no acute distress. Head/Face: Normocephalic, atraumatic. Eyes: Periorbital areas with no swelling, redness, or edema. Cardiovascular: Regular rate and rhythm. No pulse deficits. Respiratory: No increased work of breathing, no retractions or nasal flaring. Abdomen/GI: Soft, non-tender Skin: Warm, dry MS/ Extremity: Pulses equal, no cyanosis. Neuro: Awake and alert, GCS 15, oriented to person, place, time, and situation. Cranial nerves II-XII grossly intact. Motor strength 5/5 in all extremities. Sensory grossly intact. Cerebellar exam normal. 15:33 ECG was reviewed by the Attending Physician. rn Vital Signs: 14:45 BP 125 / 81; Pulse 67; Resp 17; Temp 98.3(O); Pulse Ox 99% on R/A; Weight 58.97 kg; ab2 Height 5 ft. 5 in. (165.10 cm); Pain 0/10; 15:30 BP 125 / 77; Pulse 73; Resp 16; Pulse Ox 100% on R/A; Pain 0/10; ab2 16:30 BP 117 / 69; Pulse 76; Resp 17; Pulse Ox 99% on R/A; ab2 17:42 BP 121 / 77; Pulse 75; Resp 16; Pulse Ox 99% on R/A; ab2 14:45 Body Mass Index 21.63 (58.97 kg, 165.10 cm) ab2 MDM: 14:48 Patient medically screened. rn 16:12 Differential diagnosis: seizure. Data reviewed: vital signs, nurses notes, lab test rn result(s), and as a result, I will discharge patient. Counseling: I had a detailed discussion with the patient and/or guardian regarding: the historical points, exam findings, and any diagnostic results supporting the discharge/admit diagnosis, lab results, the need for outpatient follow up, to return to the emergency department if symptoms worsen or persist or if there are any questions or concerns that arise at home. Response to treatment: the patient's symptoms have markedly improved after treatment, the patient is now symptom free, patient is well hydrated. and as a result, I will discharge patient. Special discussion: I discussed with the patient/guardian in detail that at this point there is no indication for admission to the hospital. It is understood, however, that if the symptoms persist or worsen the patient needs to return immediately for re-evaluation. Based on the history and exam findings, there is no indication for further emergent testing or inpatient evaluation. I discussed with the patient/guardian the need to see the neurologist for further evaluation of the symptoms. 06/24 14:53 Order name: CBC with Diff; Complete Time: 15:32 rn 06/24 14:53 Order name: Basic Metabolic Panel; Complete Time: 15:32 rn 06/24 14:53 Order name: Urine Drug Screen; Complete Time: 15:32 rn 06/24 15:09 Order name: Urine Dipstick-Ancillary; Complete Time: 15:32 EDMS 06/24 15:11 Order name: Urine --Ancillary (enter results); Complete Time: 15:32 bd 06/24 14:53 Order name: IV Start; Complete Time: 14:54 rn 06/24 14:53 Order name: Urine Dipstick-Ancillary (obtain specimen); Complete Time: 15:10 rn 06/24 14:53 Order name: Urine Test (obtain specimen); Complete Time: 15:10 rn 06/24 14:53 Order name: EKG; Complete Time: 14:54 rn 06/24 14:53 Order name: EKG - Nurse/Tech; Complete Time: 15:00 rn 06/24 14:54 Order name: Cardiac monitoring; Complete Time: 14:59 rn 06/24 14:54 Order name: O2 Sat Monitoring; Complete Time: 14:59 rn EC:33 Rate is 54 beats/min. Rhythm is regular. QRS [place] is Normal. [place] interval is normal. QRS rn interval is normal. QT interval is normal. No Q waves. T waves are Normal. No ST changes noted. Clinical impression: Sinus bradycardia. Interpreted by me. Reviewed by me. Administered Medications: 15:23 Drug: Keppra (levETIRAcetam) 1000 mg Route: IV; Rate: calculated rate; Site: right ab2 antecubital; 16:18 Follow up: Response: No adverse reaction; IV Status: Completed infusion ab2 15:23 Drug: NS 0.9% 1000 ml Route: IV; Rate: 1000 ml; Site: right antecubital; ab2 16:17 Follow up: Response: No adverse reaction; IV Status: Completed infusion ab2 Disposition Summary: 06/24/21 16:13 Discharge Ordered Location: Home rn Problem: new rn Symptoms: have improved rn Condition: Stable rn Diagnosis - Epileptic seizures related to external causes, not intractable rn Followup: rn - With: Ricky Ugalde MD - When: As needed - Reason: Recheck today's complaints, Re-evaluation by your physician Discharge Instructions: - Discharge Summary Sheet rn - Seizure, Adult rn Forms: - Medication Reconciliation Form rn - Thank You Letter rn - Antibiotic underwriting internship - Prescription Opioid Use rn Prescriptions: - Keppra 500 mg Oral Tablet - take 1 tablet by ORAL route every 12 hours; 60 tablet; Refills: 0, Product rn Selection Permitted Signatures: Dispatcher [employer] Eduardo Mitchell MD MD rn Bleininger, Alexis ab2 Corrections: (The following items were deleted from the chart) 14:51 14:50 Allergies: citris; ab2 ab2
--- NOTE | 2021-06-24 16:13 | ER ---
Nurse's Notes [facility] Name: Sofie Jensen Age: 20 yrs Sex: Female : 2000 Arrival Date: 06/24/2021 Time: 14:41 Bed 24 Private MD: Diagnosis: Epileptic seizures related to external causes, not intractable Presentation: 06/24 14:45 Chief complaint: EMS states: She was found around 1400 by other people living in the ab2 house. When they found her she was having seizure like activity. Pt is postictal upon arrival to ED. Coronavirus screen: Vaccine status: Patient reports being unvaccinated. Client denies travel out of the [place] in the last 14 days. At this time, the client does not indicate any symptoms associated with coronavirus-19. Ebola Screen: Patient negative for fever greater than or equal to 101.5 degrees Fahrenheit, and additional compatible Ebola Virus Disease symptoms Patient denies exposure to infectious person. Patient denies travel to an Ebola-affected area in the 21 days before illness onset. No symptoms or risks identified at this time. Initial Sepsis Screen: Does the patient meet any 2 criteria? No. Patient's initial sepsis screen is negative. Does the patient have a suspected source of infection? No. Patient's initial sepsis screen is negative. Risk Assessment: Do you want to hurt yourself or someone else? Patient reports no desire to harm self or others. Onset of symptoms is unknown. 14:45 Method Of Arrival: EMS: [facility] ab2 14:45 Acuity: EN 3 ab2 Historical: - Allergies: 14:50 No Known Allergies; ab2 - PMHx: 14:50 Asthma; Seizure; ab2 - PSHx: 14:50 None; ab2 - Immunization history:: Adult Immunizations up to date. - Social history:: Smoking status: Patient reports the use of cigarette tobacco products, smokes one-half pack cigarettes per day. - Family history:: not pertinent. - Hospitalizations: : No recent hospitalization is reported. Screenin:29 Abuse screen: Denies threats or abuse. Denies injuries from another. Nutritional ab2 screening: No deficits noted. Tuberculosis screening: No symptoms or risk factors identified. Fall Risk None identified. Assessment: 15:24 General: Appears in no apparent distress. comfortable, Behavior is calm, cooperative, ab2 appropriate for age. Pain: Denies pain. Neuro: Level of Consciousness is awake, alert, obeys commands, Oriented to person, place, time, situation, Appropriate for age Associate Professor Of English are equal bilaterally Moves all extremities. Gait is steady, Speech is normal, Facial symmetry appears normal. Neuro: Seizure activity reported prior to arrival. Cardiovascular: No deficits noted. Denies chest pain, shortness of breath, Heart tones S1 S2 present. Respiratory: No deficits noted. Airway is patent Respiratory effort is even, unlabored, Respiratory pattern is regular, symmetrical, Breath sounds are clear bilaterally. GI: No deficits noted. No signs and/or symptoms were reported involving the gastrointestinal system. Abdomen is round non-distended, Bowel sounds present X 4 quads. : No deficits noted. No signs and/or symptoms were reported regarding the genitourinary system. EENT: No deficits noted. No signs and/or symptoms were reported regarding the EENT system. Derm: Skin is intact, Skin is pink, warm \T\ dry. 15:31 Reassessment: Patient appears in no apparent distress at this time. No changes from ab2 previously documented assessment. Pt is resting in bed, seizure pads in place. Pt more alert at this time. Denies any needs. Keppra is infusing at this time, pt tolerating well. 16:16 Reassessment: Pt up for discharge. Pt does not have anyone that can give her a ride. Pt ab2 does not know the phone number for us to call anyone. MD aware. will try to arrange transportation. 16:55 Reassessment: Number for mother of patient phone is no longer in service. And number on ab2 file for the grandmother worked, nut no answer and no option to leave voicemail. pt ambulatory and alert and oriented she states she normally takes a cab. Charge nurse assessed pt as well and charge nurse and myself feel comfortable sending the patient home by cab. Vital Signs: 14:45 BP 125 / 81; Pulse 67; Resp 17; Temp 98.3(O); Pulse Ox 99% on R/A; Weight 58.97 kg; ab2 Height 5 ft. 5 in. (165.10 cm); Pain 0/10; 15:30 BP 125 / 77; Pulse 73; Resp 16; Pulse Ox 100% on R/A; Pain 0/10; ab2 16:30 BP 117 / 69; Pulse 76; Resp 17; Pulse Ox 99% on R/A; ab2 17:42 BP 121 / 77; Pulse 75; Resp 16; Pulse Ox 99% on R/A; ab2 14:45 Body Mass Index 21.63 (58.97 kg, 165.10 cm) ab2 ED Course: 14:41 Patient arrived in ED. bd 14:45 Nicholas Amezquita is Primary Nurse. ab2 14:48 Eduardo Bill MD is Attending Physician. rn 14:49 Patient has correct armband on for positive identification. Placed in gown. Bed in low mh5 position. Call light in reach. Side rails up X2. Seizure precautions initiated. Warm blanket given. Pillow given. store associate on. Pulse ox on. NIBP on. 14:50 Triage completed. ab2 14:50 Initial lab(s) drawn, by me, held in ED. Maintain EMS IV. Dressing intact. Good blood mh5 return noted. Site clean \T\ dry. 15:00 CBC with Diff Sent. ab2 15:00 Basic Metabolic Panel Sent. ab2 15:10 Urine Drug Screen Sent. mh5 15:10 Basic Metabolic Panel Sent. mh5 15:10 sent to lab. Urine collected: clean catch specimen, cloudy, EKG done, by ED staff, mh5 reviewed by Eduardo Bill MD. 15:29 Arm band placed on right wrist. ab2 15:30 No provider procedures requiring assistance completed. ab2 16:12 Ricky Ugalde MD is Referral Physician. rn 17:43 IV discontinued, intact, bleeding controlled, No redness/swelling at site. Pressure ab2 dressing applied. Administered Medications: 15:23 Drug: Keppra (levETIRAcetam) 1000 mg Route: IV; Rate: calculated rate; Site: right ab2 antecubital; 16:18 Follow up: Response: No adverse reaction; IV Status: Completed infusion ab2 15:23 Drug: NS 0.9% 1000 ml Route: IV; Rate: 1000 ml; Site: right antecubital; ab2 16:17 Follow up: Response: No adverse reaction; IV Status: Completed infusion ab2 Outcome: 16:13 Discharge ordered by . rn 17:43 Discharged to home via wheelchair, jinriksha driver ab2 17:43 Condition: good 17:43 Discharge instructions given to patient, Instructed on discharge instructions, follow up and referral plans. medication usage, Demonstrated understanding of instructions, follow-up care, medications, Prescriptions given X 1. 17:43 Patient left the ED. ab2 Signatures: Camila Martínez Roman, MD MD rn Martinez, Maria [facility] Nicholas Amezquita ab2 Corrections: (The following items were deleted from the chart) 14:51 14:50 Allergies: citris; ab2 ab2
[2021-06-24 18:07] VITALS: TEMP 98.3
[2021-06-24 18:10] VITALS: O2SAT 99
[2021-06-24 18:11] VITALS: BP 121/77
--- NOTE | 2021-06-25 08:30 | EKG ---
Test Date: 2021-06-24 Test Time: 15:11:[address] Associate Justice: MEASUREMENT RESULTS: Intervals: Rate: 54 MA: 176 QRSD: 84 QT: 438 QTc: 415 [place]: P: 64 MA: 176 QRS: 80 T: 47 INTERPRETIVE STATEMENTS: Sinus bradycardia Otherwise normal ECG Compared to ECG 06/11/2021 00:59:22 Sinus rhythm no longer present Electronically Signed On 06-25-21 08:28:02 CDT by Trent Capellan
== END 2021-06-24 17:43 | disposition home or self-care (01) ==
LOC: ER 14:30
DX: G40.509 Epileptic seizures related to external causes, not intractable, without status epilepticus (principal); F17.210 Nicotine dependence, cigarettes, uncomplicated
CPT/HCPCS: 96365; 93005; 85025; 80048; 36415; 81025; 81003; 80307; 99284; J1953; J7030

== ENCOUNTER 2021-06-24 23:34 | Emergency (ER) | payer OTHER ==
--- OUTSIDE RECORDS SUMMARY | 2021-06-24 23:40 | XMS REPORT | Continuity of Care Document ---
:2000 Author Organization [facility] t Address [address] [place] [address] Care Team Providers Name Role Phone PCP, [...] Number Effective Date Expiration Date Courtney JONES [id number] 2019 00:00:00 [place] [facility] [id number] 2017 HEALTH 00:00:00 Problems Condition Condition Condition [...] rs active active ity of problems problems [facility] Allergies, Adverse Reactions, Alerts Allergy Allergy Status Severity Reaction(s) Onset Inactive Treating Comm ents Source Name Type Date Date Clinician Shubert Propensi Active Hives Univers And ty to [...] Quantity Comments Source Exposure to Not sure [facility] SARS-CoV-2 (event) [facility] Tobacco use and 2017-11-19 2017-11-19 Never used [facility] exposure 00:00:00 00:00:00 Medical [place] Sex Assigned At 2000 2001 [facility] 00:00:00 00:00:00 Medical Branch Smoking Status Start Date Stop Date Source Never smoker [facility] Medications Ordered Filled Start Stop Current Ordering Indication Dosage Frequency Signature Comments Components Source Medication Medication Date Date Medication? Clinician (SIG) Name Name Potassium Yes 40meq 40 mEq, Univ ers Bicarb-Citr 12-04 Oral, ity of ic Acid 14:00: DAILY, [place] (EFFER-K) 00 First dose Medi lilibeth effervescen on Thu [place] t tablet 40 12/04/20 at mEq 0900, Until Discontinu ed, Routine Potassium Yes 40meq 40 mEq, Univ ers Bicarb-Citr 9-14 Oral, ity of ic Acid 14:00: DAILY, [place] (EFFER-K) 00 First dose Medi lilibeth effervescen on Thu t tablet 40 12/04/20 at mEq 0900, Until Discontinu ed, Routine prazosin Yes 1mg 1 mg, Univers (MINIPRES) 9-14 Oral, QHS, ity of capsule 1 02:00: [place] dose [place] 00 on [facility] 12/03/20 at [place] 2100, Until Discontinu ed, Routine prazosin Yes 1mg 1 mg, Univers (MINIPRES) 9-14 Oral, QHS, ity of capsule 1 02:00: [place] mg 00 on [facility] 12/03/20 at [place] 2100, Until Discontinu ed, Routine vitamin 2020- No [id number] 1000ug Take 1 U nivers B-12 1,000 9-14 10-15 tablet by ity of mcg tablet 00:00: 04:59 mouth [place] 00 :00 daily for Medical 30 days. [place] vitamin 2020- No [id number] 1000ug Take 1 U nivers B-12 1,000 -14 10-15 tablet by ity of mcg tablet 00:00: 04:59 mouth [place] 00 :00 daily for Medical 30 days. [place] gadoteridol 2020- No [id number] .2mL/kg 11.8 mL Univers (PROHANCE-1 12-03 (0.2 mL/kg i ty of 5 mL) 17:00: 17:00 ?59 kg), [place] injection 00 :00 Intravenou Medi lilibeth 11.8 mL s, ONCE, 1 Branch dose, On [facility] 12/03/20 at 1200, Routine gadoteridol 2020- No [id number] .2mL/kg 11.8 mL Univers (PROHANCE-1 12-03 (0.2 mL/kg i ty of 5 mL) 17:00: 17:00 ?59 kg), [place] injection 00 :00 Intravenou Medi lilibeth 11.8 mL s, ONCE, 1 Branch dose, On [facility] 12/03/20 at 1200, Routine vitamin Yes 1000ug 1,000 mcg, Un spring B-12 12-03 Oral, ity of (CYANOCOBAL 14:00: DAILY[place] RAM[place] 00 First dose Medical tablet on Mon Branch 1,000 mcg 12/03/20 at 0900, Until Discontinu ed, Routine pantoprazol Yes 40mg 40 mg, [facility] ers e 12-03 Oral, ity of (PROTONIX) 14:00: DAILY, [place] EC tablet 00 First dose Medi lilibeth 40 mg on Thu Branch 12/03/20 at 0900, Until Discontinu ed, Routine vitamin 0 Yes 1000ug 1,000 mcg, Un spring B-12 12-03 Oral, ity of (CYANOCOBAL 14:00: DAILY[place] RAM[place] 00 First dose Medical tablet on [facility] Branch 1,000 mcg 12/03/20 at 0900, Until Discontinu ed, Routine pantoprazol Yes 40mg 40 mg, Univ ers e 12-03 Oral, ity of (PROTONIX) 14:00: DAILY, [place] EC tablet 00 First dose Medi lilibeth 40 mg on [facility] Branch 12/03/20 at 0900, Until Discontinu ed, Routine potassium 2020- No 20meq 20 mEq, IV Univers chloride 20 12-03 [place]gy[place], i ty of mEq/100 mL 13:00: 16:59 Q2H, 2 [place] (KCL[place] 20 00 :00 doses, Medical mEq/100 mL First dose Bra [facility] RTU IVPB 20 on Thu mEq 12/03/20 at 0800, Last dose on Thu12/03/20 at 1000, 100 mL potassium 2020- No 20meq 20 mEq, IV Univers chloride 20 12-03 [place], i ty of mEq/100 mL 13:00: 16:59 Q2H, 2 [place] (KCL) 20 00 :00 doses, Medical mEq/100 mL First dose Bra [facility] RTU IVPB 20 on Thu mEq 12/03/20 at 0800, Last dose on Thu12/03/20 at 1000, 100 mL ciprofloxac 2020-2020- No [id number] 500mg Take 1 Univers in HCl 500 12-03 tablet by ity of mg tablet 00:00: 04:59 mouth [place] 00 :00 every 12 Medical (twelve) Branch hours for 7 days. ciprofloxac 2020- No [id number] 500mg Take 1 Univers in HCl 500 12-03 tablet by ity of mg tablet 00:00: 04:59 mouth [place] 00 :00 every 12 Medical (twelve) Branch hours for 7 days. enoxaparin Yes 40mg 40 mg, Unive rs (LOVENOX) 12-02 Subcutaneo ity of injection 22:00: us, DAILY, [place] 40 mg 00 First dose Medical on [facility] 12/02/20 at 1700, Until Discontinu ed, Routine enoxaparin Yes 40mg 40 mg, Unive rs (LOVENOX) 12-02 Subcutaneo ity of injection 22:00: us, DAILY, [place] 40 mg 00 First dose Medical on [facility] 12/02/20 at 1700, Until Discontinu ed, Routine gadoteridol 2020- No [id number] .2mL/kg 11.8 mL Univers (PROHANCE-1 12-02 (0.2 mL/kg i ty of 5 mL) 17:45: 17:45 ?59 kg), [place] injection 00 :00 Intravenou Medi lilibeth 11.8 mL s, ONCE, 1 Branch dose, On [place] 12/02/20 at 1245, Routine gadoteridol 2020- No [id number] .2mL/kg 11.8 mL Univers (PROHANCE-1 12-02 (0.2 mL/kg i ty of 5 mL) 17:45: 17:45 ?59 kg), [place] injection 00 :00 Intravenou Medi lilibeth 11.8 mL s, ONCE, 1 Branch dose, On [place] 12/02/20 at 1245, Routine cefTRIAXone Yes 1000mg 1,000 mg, Univers (ROCEPHIN) 12-02 IV ity of 1,000 mg in 16:30: [place]gy[place], [place] NaCl 0.9% 00 Q24H ABX, Medic al (NS) 50 mL First dose Bra [facility] MINI-BAG on [place] 12/02/20 at 1130, Until Discontinu ed, Administer over 30 Minutes, 50 mL
Reas on for Anti-Infec tive: Documented Infection< br>Documen carole Infection Site: Urine
D uration of Therapy: 7 days cefTRIAXone 0 Yes 1000mg 1,000 mg, Univers (ROCEPHIN) 9-12 IV ity of 1,000 mg in 16:30: [place], [place] NaCl 0.9% 00 Q24H ABX, Medic al (NS) 50 mL First dose Bra [facility] MINI-BAG on [place] 12/02/20 at 1130, Until Discontinu ed, Administer over 30 Minutes, 50 mL
Reas on for Anti-Infec tive: Documented Infection< br>Documen carole Infection Site: Urine
D uration of Therapy: 7 days NaCl 0.9% 0 Yes 1000mL at 50 Unive rs (NS) IV 9-12 mL/hr, IV ity of infusion 15:30: In[place], [place] 1,000 mL 00 CONTINUOUS Medic al , Starting Branch on [place] 12/02/20 at 1030, Until Discontinu ed, Routine NaCl 0.9% 0 Yes 1000mL at 50 Unive rs (NS) IV 9-12 mL/hr, IV ity of infusion 15:30: Infusion, [place] 1,000 mL 00 CONTINUOUS Medic al , Starting Branch on [place] 12/02/20 at 1030, Until Discontinu ed, Routine acetaminoph 0 Yes 650mg 650 mg, Un spring en 12 Oral, ity of (TYLENOL) 15:19: Q6HPRN, [place] tablet 650 42 Starting Medic al mg on [facility] 12/02/20 at 1019, Until Discontinu ed, Routine, Pain (scale 4-6) docusate 0 Yes 100mg 100 mg, Unive rs (COLACE) 912 Oral, ity of capsule 100 15:19: QDAILYPRN, [place] mg 42 Starting Medical on [facility] 12/02/20 at 1019, Until Discontinu ed, Routine, Constipati on acetaminoph 0 Yes 650mg 650 mg, Un spring en 9-12 Oral, ity of (TYLENOL) 15:19: Q6HPRN, [place] tablet 650 42 Starting Medic al mg on [facility] 12/02/20 at 1019, Until Discontinu ed, Routine, Pain (scale 4-6) docusate Yes 100mg 100 mg, Unive rs (COLACE) 12-02 Oral, ity of capsule 100 15:19: QDAILYPRN, [place] mg 42 Starting Medical on [facility] 12/02/20 at 1019, Until Discontinu ed, Routine, Constipati on midazolam 2020- No 1mg 1 mg, IV Uni vers (VERSED) 12-02 Push, ity of injection 1 11:15: 10:15 ONCE, 1 [place] mg 00 :00 dose, [facility] 12/02/20 at Branch 0615, STAT midazolam 2020-0 2020- No 1mg 1 mg, IV Uni vers (VERSED) 12-02 Push, ity of injection 1 11:15: 10:15 ONCE, 1 [place] mg 00 :00 dose, [facility] 12/02/20 at [place] 0615, STAT midazolam 2020-2020- No 1mg 1 mg, IV Uni vers (VERSED) 12-02 Push, ity of injection 1 10:45: 09:30 ONCE, 1 [place] mg 00 :00 dose, [facility] 12/02/20 at Branch 0545, STAT midazolam 2020-2020- No 1mg 1 mg, IV Uni vers (VERSED) 12-02 Push, ity of injection 1 10:45: 09:30 ONCE, 1 [place] mg 00 :00 dose, [facility] 12/02/20 at Branch 0545, STAT NaCl 0.9% Yes 1000mL at 125 Univ ers (NS) IV 9-12 mL/hr, IV ity of infusion 10:00: Infusion, [place] 1,000 mL 00 CONTINUOUS Medic al , Starting [facility] 12/02/20 at 0500, Until Discontinu ed, Routine NaCl 0.9% 0 Yes 1000mL at 125 Univ ers (NS) IV 9-12 mL/hr, IV ity of infusion 10:00: Infusion, [place] 1,000 mL 00 CONTINUOUS Medic al , Starting [facility] 12/02/20 at 0500, Until Discontinu ed, Routine ondansetron Yes 4mg 4 mg, Slow Univers (ZOFRAN 12-02 IV Push, ity of (PF)) 09:52: Q6HPRN, [place] injection 4 57 Starting Medi lilibeth mg [facility] 12/02/20 at 0452, Until Discontinu ed, Routine, Nausea and Vomiting (N/V) ondansetron 2020-0 Yes 4mg 4 mg, Slow Univers (ZOFRAN 12-02 IV Push, ity of (PF)) 09:52: Q6HPRN, [place] injection 4 57 Starting Medi lilibeth mg [facility] 12/02/20 at 0452, Until Discontinu ed, Routine, Nausea and Vomiting (N/V) acetaminoph 1-0 Yes 650mg 650 mg, Un spring en 12 Oral, ity of (TYLENOL) 09:52: Q6HPRN, [place] tablet 650 44 Starting Medic al mg [facility] 12/02/20 at 0452, Until Discontinu ed, Routine, Pain (scale 1-3), Temp > 38.5 C acetaminoph 2020-0 Yes 650mg 650 mg, Un spring en 12-02 Oral, ity of (TYLENOL) 09:52: Q6HPRN, [place] tablet 650 44 Starting Medic al mg [facility] 12/02/20 at 0452, Until Discontinu ed, Routine, Pain (scale 1-3), Temp > 38.5 C NaCl 0.9% 2020- No 1000mL at 999 Uni vers (NS) bolus 12-02 mL/hr, ity of infusion 09:00: 10:23 1,000 mL, [place] 1,000 mL 00 :[facility] dose, [place] 12/02/20 at 0400, STAT NaCl 0.9% 2020- No 1000mL at 999 Uni vers (NS) bolus 12-02 mL/hr, ity of infusion 09:00: 10:23 1,000 mL, [place] 1,000 mL 00 :00 IV Medical [place], [place] ONCE, 1 dose, [place] 12/02/20 at 0400, STAT cefTRIAXone 2020-2020- No 1000mg 1,000 mg, Univers (ROCEPHIN) 12-02 IV ity of 1,000 mg in 08:45: 08:24 [place], [place] NaCl 0.9% 00 :00 ONCE, 1 Medical (NS) 50 mL dose, [place] Bran ch MINI-BAG 12/02/20 at 0345, Administer over 30 Minutes, 50 mL
R fabio for Anti-Infec tive: Documented Infection< br>Documen carole Infection Site: Urine
D uration of Therapy: 7 days cefTRIAXone 2020-2020- No 1000mg 1,000 mg, Univers (ROCEPHIN) 12-02 IV ity of 1,000 mg in 08:45: 08:24 [place], [place] NaCl 0.9% 00 :00 ONCE, 1 Medical (NS) 50 mL dose, [place] Bran ch MINI-BAG 12/02/20 at 0345, Administer over 30 Minutes, 50 mL
R fabio for Anti-Infec tive: Documented Infection< br>Documen carole Infection Site: Urine
D uration of Therapy: 7 days midazolam 2020-2020- No 1mg 1 mg, IV Uni vers (VERSED) 12-02 Push, ity of injection 1 07:15: 06:42 ONCE, 1 [place] mg 00 :00 dose, [facility] 12/02/20 at Branch 0215, STAT midazolam 2020-2020- No 1mg 1 mg, IV Uni vers (VERSED) 12-02 Push, ity of injection 1 07:15: 06:42 ONCE, 1 [place] mg 00 :00 dose, [facility] 12/02/20 at Branch 0215, STAT NaCl 0.9% 2020- No 500mL at 999 Univ ers (NS) bolus 12-02 mL/hr, 500 it y of infusion 07:00: 07:12 mL, IV [place] 500 mL 00 :00 Piggyback, [facility] ONCE, 1 Branch dose, [place] 12/02/20 at 0200, STAT NaCl 0.9% 2020-2020- No 500mL at 999 Univ ers (NS) bolus 12-02 mL/hr, 500 it y of infusion 07:00: 07:12 mL, IV [place] 500 mL 00 :00 Piggy[place], Medical ONCE, 1 Branch dose, [place] 12/02/20 at 0200, STAT cefTRIAXone 2020-0 2021- No 1000mg 1,000 mg, Univers (ROCEPHIN) 11-30 IV ity of 1,000 mg in :30: 07:03 [place], [place] NaCl 0.9% 00 :00 ONCE, 1 Medical (NS) 50 mL dose, Fri Bran ch MINI-BAG 11/30/20 at 0230, Administer over 30 Minutes, 50 mL
R fabio for Anti-Infec tive: Documented Infection< br>Documen carole Infection Site: Urine
D uration of Therapy: Other (see Comments) cefTRIAXone 2020- No 1000mg 1,000 mg, Univers (ROCEPHIN) 11-30 IV ity of 1,000 mg in :30: 07:03 [place], [place] NaCl 0.9% 00 :00 ONCE, 1 Medical (NS) 50 mL dose, Fri Bran ch MINI-BAG 11/30/20 at 0230, Administer over 30 Minutes, 50 mL
R fabio for Anti-Infec tive: Documented Infection< br>Documen carole Infection Site: Urine
D uration of Therapy: Other (see Comments) Nitrofurant Yes [id number] 100mg Take 1 Univers oin&Nit. 9-10 capsule by ity o f [place] 00:00: mouth 2 [place] (MACROBID) 00 (two) Medical 100 mg times Branch capsule daily. Nitrofurant Yes [id number] 100mg Take 1 Univers oin&Nit. 9-10 capsule by ity o f [place] 00:00: mouth 2 [place] (MACROBID) 00 (two) Medical 100 mg times Branch capsule daily. Nitrofurant Yes [id number] 100mg Take 1 Univers oin&Nit. 9-10 capsule by ity o f Mac[place] 00:00: mouth 2 [place] (MACROBID) 00 (two) Medical 100 mg times Branch capsule daily. Nitrofurant Yes [id number] 100mg Take 1 Univers oin&Nit. 9-10 capsule by ity o f Mac[place]ryst 00:00: mouth 2 [place] (MACROBID) 00 (two) Medical 100 mg times Branch capsule daily. Nitrofurant Yes [id number] 100mg Take 1 Univers oin&Nit. 9-10 capsule by ity o f [place] 00:00: mouth 2 [place] (MACROBID) 00 (two) Medical 100 mg times Branch capsule daily. Nitrofurant Yes [id number] 100mg Take 1 Univers oin&Nit. 9-10 capsule by ity o f [place] 00:00: mouth 2 [place] (MACROBID) 00 (two) Medical 100 mg times Branch capsule daily. Nitrofurant Yes [id number] 100mg Take 1 Univers oin&Nit. 9-10 capsule [...] 3-11 affected ity of cream 00:00: area(s) [place] 00 daily. Medical Branch hydrocortis 2015- Yes Apply to U nivers one 1 % 3-11 affected ity of cream 00:00: area(s) [place] 00 daily. Medical Branch hydrocortis 2015- Yes [...] 00 daily. Medical Branch crotamiton 2016-0 Yes [id number] After warm Univers (EURAX) 10 3-08 bath apply ity of % lotion 00:00: lotion to [place] 00 entire Medical body Branch excluding face and scalp. Repeat in 24 hours. cetirizine 2015- Yes [id number] 10mg Take 1 Tab Univers (ZYRTEC) 10 3-08 by mouth ity of mg tablet 00:00: at bedtime [place] 00 as needed Medical for Other Branch (itching). crotamiton 0 Yes [id number] After warm Univers (EURAX) 10 3-08 bath apply ity of % lotion 00:00: lotion to [place] 00 entire Medical body Branch excluding face and scalp. Repeat in 24 hours. cetirizine 2015-0 Yes [id number] 10mg Take 1 Tab Univers (ZYRTEC) 10 3-08 by mouth ity of mg tablet 00:00: at bedtime [place] 00 as needed Medical for Other Branch (itching). crotamiton 2015-0 Yes [id number] After warm Univers (EURAX) 10 3-08 bath apply ity of % lotion 00:00: lotion to [place] 00 entire Medical body Branch excluding face and scalp. Repeat in 24 hours. cetirizine 2015-0 Yes [id number] 10mg Take 1 Tab Univers (ZYRTEC) 10 3-08 by mouth ity of mg tablet 00:00: at bedtime [place] 00 as needed Medical for Other Branch (itching). crotamiton 2015-0 Yes [id number] After warm Univers (EURAX) 10 3-08 bath apply ity of % lotion 00:00: lotion to [place] 00 entire Medical body Branch excluding face and scalp. Repeat in 24 hours. cetirizine Yes [id number] 10mg Take 1 Tab Univers (ZYRTEC) 10 3-08 by mouth ity of mg tablet 00:00: at bedtime [place] 00 as needed Medical for Other Branch (itching). crotamiton Yes [id number] After warm Univers (EURAX) 10 3-08 bath apply ity of % lotion 00:00: lotion to [place] 00 entire Medical body Branch excluding face and scalp. Repeat in 24 hours. cetirizine Yes [id number] 10mg Take 1 Tab Univers (ZYRTEC) 10 3-08 by mouth ity of mg tablet 00:00: at bedtime [place] 00 as needed Medical for Other Branch (itching). crotamiton Yes [id number] After warm Univers (EURAX) 10 3-08 bath apply ity of % lotion 00:00: lotion to [place] 00 entire Medical body Branch excluding face and scalp. Repeat in 24 hours. cetirizine Yes [id number] 10mg Take 1 Tab Univers (ZYRTEC) 10 3-08 by mouth ity of mg tablet 00:00: at bedtime [place] 00 as needed Medical for Other Branch (itching). crotamiton Yes [id number] After warm Univers (EURAX) 10 3-08 bath apply ity of % lotion 00:00: lotion to [place] 00 entire Medical body Branch excluding face and scalp. Repeat in 24 hours. cetirizine Yes [id number] 10mg Take 1 Tab Univers (ZYRTEC) 10 3-08 by mouth ity of mg tablet 00:00: at bedtime [place] 00 as needed Medical for Other Branch (itching). crotamiton Yes [id number] After warm Univers (EURAX) 10 3-08 bath apply ity of % lotion 00:00: lotion to [place] 00 entire Medical body Branch excluding face and scalp. Repeat in 24 hours. cetirizine Yes [id number] 10mg Take 1 Tab Univers (ZYRTEC) 10 3-08 by mouth ity of mg tablet 00:00: at bedtime [place] 00 as needed Medical for Other Branch (itching). crotamiton Yes [id number] After warm Univers (EURAX) 10 3-08 bath apply ity of % lotion 00:00: lotion to [place] 00 entire Medical body Branch excluding face and scalp. Repeat in 24 hours. cetirizine Yes [id number] 10mg Take 1 Tab Univers (ZYRTEC) 10 3-08 by mouth ity of mg tablet 00:00: at bedtime [place] 00 as needed Medical for Other Branch (itching). crotamiton Yes [id number] After warm Univers (EURAX) 10 3-08 bath apply ity of % lotion 00:00: lotion to [place] 00 entire Medical body Branch excluding face and scalp. Repeat in 24 hours. cetirizine Yes [id number] 10mg Take 1 Tab Univers (ZYRTEC) 10 [...] Name HPV9 2015-05-17 Completed University of 00:00:00 [facility] HPV9 2015-05-17 Completed University of 00:00:00 [facility] HPV9 2015-05-17 Completed University of 00:00:00 [facility] HPV9 2015-05-17 Completed University of 00:00:00 [facility] HPV9 2015-05-17 Completed University of 00:00:00 [facility] HPV9 2015-05-17 Completed University of 00:00:00 [facility] HPV9 2015-05-17 Completed University of 00:00:00 [facility] HPV9 2015-05-17 Completed University of 00:00:00 [facility] HPV9 2015-05-17 Completed University of 00:00:00 [facility] HPV9 2015-05-17 Completed University of 00:00:00 [facility] Varicella 2015-01-16 Completed University of (varivax)(chicken 00:00:00 [...] y of Vaccine Quad IM 3+ 00:00:00 [facility] Influenza Virus 2014-12-27 Completed Universit y of Vaccine Quad IM 3+ 00:00:00 [facility] Influenza Virus 2014-12-27 Completed Universit y of Vaccine Quad IM 3+ 00:00:00 [facility] Influenza Virus 2014-12-27 Completed Universit y of Vaccine Quad IM 3+ 00:00:00 [facility] Influenza Virus 2014-12-27 Completed Universit y of Vaccine Quad IM 3+ 00:00:00 [facility] Influenza Virus 2014-12-27 Completed Universit y of Vaccine Quad IM 3+ 00:00:00 [facility] Influenza Virus 2014-12-27 Completed Universit y of Vaccine Quad IM 3+ 00:00:00 [facility] Influenza Virus 2014-12-27 Completed Universit y of Vaccine Quad IM 3+ 00:00:00 [facility] Influenza Virus 2014-12-27 Completed Universit y of Vaccine Quad IM 3+ 00:00:00 [facility] Influenza Virus 2014-12-27 Completed Universit y of Vaccine Quad IM 3+ 00:00:00 [facility] Vital Signs Vital Name Observation Time Observation Value Comments Source Systolic blood 2020-12-04 12:43:00 118 mm[Hg] [facility]iver [facility]ity of [facility] Diastolic blood 2020-12-04 12:43:00 65 mm[Hg] Unive rsity of [facility] Heart rate 2020-12-04 12:43:00 69 /min [facility] Body temperature 2020-12-04 12:43:00 36.5 Latoya [facility] 2020-12-04 12:43:00 15 /min [facility] Oxygen saturation in 2020-12-04 12:43:00 97 /min [facility] Arterial blood by [facility] Pulse oximetry [place] Body height 2020-12-02 23:01:00 162.6 cm [facility] Body weight 2020-12-02 23:01:00 58.968 kg [facility] BMI 2020-12-02 23:01:00 22.31 kg/m2 [facility] Body mass index 2020-12-02 23:01:00 58.99 % Unive rsity of (BMI) [Percentile] [facility] ica Per age and sex Branch Systolic blood 2020-12-02 11:00:00 104 mm[Hg] Univer sity of [facility] Diastolic blood 2020-12-02 11:00:00 71 mm[Hg] Unive rsity of pressure [facility] Heart rate 2020-12-02 11:00:00 74 /min [facility] Respiratory rate 2020-12-02 11:00:00 18 /min Univ ersity [facility] [place] [facility] Oxygen saturation in 2020-12-02 11:00:00 98 /min University of Arterial blood by [facility] Pulse oximetry Branch Body temperature 2020-12-02 05:55:00 36.44 Latoya Univ ers[facility] [place] [facility] Body height 2020-12-02 05:55:00 162.6 cm [facility] [place] [facility] Body weight 2020-12-02 05:55:00 58.968 kg [facility] [place] [facility] BMI 2020-12-02 05:55:00 22.31 kg/m2 [facility] [place] [facility] Systolic blood 2020-11-30 08:00:00 100 mm[Hg] Univer sity of pressure [place] [facility] Diastolic blood 2020-11-30 08:00:00 66 mm[Hg] Unive rsity of pressure [place] [facility] Heart rate 2020-11-30 08:00:00 55 /min [facility] [place] [facility] Respiratory rate 2020-11-30 08:00:00 14 /min Univ ers[facility] [place] [facility] Oxygen saturation in 2020-11-30 08:00:00 100 /min University of Arterial blood by [facility] Pulse oximetry Branch Body height 2020-11-30 05:22:00 162.6 cm [facility] [place] [facility] Body weight 2020-11-30 05:22:00 58.968 kg [facility] [place] [facility] BMI 2020-11-30 05:22:00 22.31 kg/m2 [facility] [place] [facility] Body temperature 2020-11-30 05:10:00 36.44 [place] Univ [facility] [place] [facility] Body temperature 2019-05-29 05:43:00 36.61 [place] [facility] [place] [facility] Systolic blood 2019-05-29 04:50:00 118 mm[Hg] Univer sity of pressure [place] [facility] Diastolic blood 2019-05-29 04:50:00 86 mm[Hg] Unive rsity of pressure [place] [facility] Heart rate 2019-05-29 04:50:00 61 /min [facility] [place] [facility] Respiratory rate 2019-05-29 04:50:00 18 /min Univ ers[facility] [place] [facility] Oxygen saturation in 2019-05-29 04:50:00 99 /min [place] of Arterial blood by [facility] Pulse oximetry Branch Body weight 2019-05-29 02:56:37 70.308 kg [facility] Body temperature 2019-05-29 05:43:00 36.61 Latoya [facility] Systolic blood 2019-05-29 04:50:00 118 mm[Hg] Univer sity of pressure [facility] Diastolic blood 2019-05-29 04:50:00 86 mm[Hg] Unive rsity of pressure [facility] Heart rate 2019-05-29 04:50:00 61 /min [facility] Respiratory rate 2019-05-29 04:50:00 18 /min [facility] Oxygen saturation in 2019-05-29 04:50:00 99 /min [facility] Arterial blood by [facility] Pulse oximetry [place] Body weight 2019-05-29 02:56:37 70.308 kg [facility] Procedures Procedure Date / Time Performing Source Performed Clinician MR BRAIN W WO [facility]AST [facility] GALV ONLY - SYPHILIS IGG/IGM 2020-12-03 Jose Martin [facility] 09:57:00 [facility] ELECTROENCEPHALOGRAM 2020[facility] MR LUMBAR SPINE W WO CONTRAST 2020-12-02 Marquez Philippe [facility] [facility] 17:43:[address] LUMBAR SPINE WO CONTRAST 2020-12-02 Marquez Philippe [facility] 16:47:15 Medical Branch PHOSPHORUS 2020-12-[address] [facility] [place] 16:10:00 Medical Branch CREATINE KINASE 2020-12-02 [facility] MAGNESIUM 2020-12-02 [facility] 16:10[facility]00 [facility] VITAMIN B12, LEVEL 2020-12-[address] Jose Martin [facility] 16:10:00 Medical Branch FOLATE 2020-12-02 [facility] Branch BASIC METABOLIC PANEL (NA, K, 2020-12-02 Marquez Philippe [facility] CL, CO2, GLUCOSE, BUN, 16:10:00 Medical B ranch CREATININE, CA) CBC WITH DIFF 2020-12-[address] [facility] [place] 16:10:00 [facility] HIV 1/2 AG-AB WITH REFLEX 2020-12-02 Marquez Philippe [facility] 16:10:[address] ABDOMEN PELVIS WO CONTRAST 2020-12-02 Jermain Ghosh [facility] 08:43:26 [facility] CREATINE KINASE 2020-12-02 Sj [facility] 07:13:00 [facility] COMP. METABOLIC PANEL (84434) 2020-12-02 Jermain Ghosh [facility] 07:13:00 [facility] THYROID STIMULATING HORMONE 2020-12-02 Jose Martin [facility] 07:13:00 [facility] POCT TEST 2020-12-02 Sj [facility] [place] 06:36:00 [facility] COVID-19 (ID NOW RAPID 2020-12-02 Sj [facility] TESTING) 06:35:00 [facility] URINE DRUG (IMMUNOASSAY) - 2020-12-02 Sj [facility] COMPREHENSIVE DRUG SCREEN W/O 06:32:00 Nm dical Branch REFLEX URINALYSIS 2020-12-02 Sj [facility] 06:31:00 [facility] CBC WITH DIFF 2020-12-02 Sj [facility] 06:15:00 [facility] LACTIC ACID WHOLE BLOOD 2020-12-02 Jermain Ghosh [facility] 06:14:00 [facility] NOTICE OF PRIVACY PRACTICES 2020-12-02 Doctor Unassigned, [facility] 05:51:23 [facility] CONSENT/REFUSAL FOR DIAGNOSIS 2020-12-02 Doctor Unassigned, [facility] AND TREATMENT 05:51:[address] HEAD WO CONTRAST 2020-11-30 Chauncey Smith [facility] 06:48:07 [facility] POCT GLUCOSE(AGE >30DAYS) 2020-11-30 Chauncey Smith [facility] 05:31:00 Medical Branch AC PANEL 20 + LACTIC ACID 2020-11-30 Chauncey Smith [facility] 05:31:00 Medical Branch POCT GLUCOSE (AUTOMATED) 2020-11-30 Chauncey Smith [facility] 05:30:00 Medical Branch POCT TEST 2020-11-30 Chauncey Smith [facility] 05:26:00 [facility] URINE DRUG (IMMUNOASSAY) - 2020-11-30 Chauncey Smith [facility] COMPREHENSIVE DRUG SCREEN 05:25:00 Medica l [place] URINALYSIS 2020-11-30 Chauncey Smith [facility] ex 05:25:00 Medical Branch COVID-19 (ID NOW RAPID 2020-11-30 Chauncey Smith [facility] TESTING) 05:25:00 Medical Branch MAGNESIUM 2020-11-30 Chauncey Smith [facility] ex 05:16:00 Medical Branch COMP. METABOLIC PANEL (37755) 2020-11-30 Chauncey Smith [facility] 05:16:00 Medical Branch CBC WITH DIFF 2020-11-30 Chauncey Smith [facility] 05:16:00 Medical Branch CREATINE KINASE 2020-11-30 Chauncey Smith [facility] 05:15:00 [facility] NOTICE OF PRIVACY PRACTICES 2020-11-30 Doctor Unassigned, [facility] 05:01:[address] [facility] [address] HEAD WO CONTRAST 2019-05-29 Alec Rivera [facility] 04:16:04 Medical Branch XR CERVICAL SPINE 3 VW 2019-05-29 Alec Rivera [facility] 04:15:52 Medical [place] NOTICE OF PRIVACY PRACTICES 2019-05-29 Doctor Unassigned, [facility] 03:47:53 [facility] CONSENT/REFUSAL FOR DIAGNOSIS 2019-05-29 Doctor Unassigned, [facility] AND TREATMENT 03:47:41 [facility] Encounters Start End Encounter Admission Attending Care Care Encounter Source Date/Time Date/Time Type Type Clinicians Facility Department ID 2021-01-21 Emergency X [facility] [id number] Univers 22:04:01 [facility] of [facility] 2021-01-21 Emergency [facility] [id number] Univers 22:03:07 ity of [facility] 2021-01-21 Emergency [facility] [id number] Univers 21:40:40 ity of [facility] 2020 2020 Outpatient BRADY GOTTLIEB [facility] [id number] Univers 15:00:00 15:00:00 SARAHBRADY [id number] ity of [facility] 2020 2020 Outpatient BRADY GOTTLIEB [facility] [id number] Univers 15:00:00 15:00:00 SARAHBRADY [place] ity [facility] 2020-12-02 2020-12-04 Emergency [place] [id number] Univers 09:18:00 10:50:00 Lazaro Mckeon 350.1.13.10 i ty [facility] 4.2.7.2.686 Tram[place] [phone] [place] 135692 Branch 2020-12-02 2020-12-02 Emergency AlvarezJanine mcgrath [facility] 1.2.840 [id number] Univers 00:47:00 09:12:00 Jermain Ghosh 350.1.13.10 ity Nicholas Carrion 4.2.7.2.686 [facility] [id number] [place] [address] Branch 2020-12-02 2020-12-02 Outpatient X [facility]J [facility] [id number] Univers 00:47:00 09:12:00 JERMAIN ity of [facility] 2020-11-30 2020-11-30 Emergency Luis [facility] [id number] Univers 00:08:00 04:02:00 Chauncey Farrell [id number] ity Shonda 4.2.7.2.686 [facility] [phone] [place] 724284 Branch 2020-11-30 2020-11-30 Orders Doctor FREGOSO [id number] Univers 00:00:00 00:00:00 Only Unassigned, JOSE [id number] ity of [facility] 4.2.7.2.686 Tramaine [id number] [facility] 009 Branch 2019-06-15 2019-06-15 Outpatient R [facility] [id number] Univers 10:00:00 10:00:00 [id number] ity of [facility] 2019-06-15 2019-06-15 Outpatient R [facility] [id number] Univers 10:00:00 10:00:00 ity of [facility] 2019-06-15 2019-06-15 Outpatient R [facility] [id number] Univers 10:00:00 10:00:00 ity of [facility] 2019-06-15 2019-06-15 Telephone de [facility] [id number] Univers 00:00:00 00:00:00 Marcos Lerma [id number] ity of [facility] 4.2.7.2.686 [place] [facility] [phone] [facility] [address] 2019-06-15 2019-06-15 Telephone de [facility] [id number] 00:00:00 00:00:00 Marcos Lerma 350.1.13.10 [facility] 4.2.7.2.686 Clinic [id number] [facility] 2019-06-14 2019-06-14 Outpatient R [facility] [id number] Univers 14:40:00 14:40:00 [id number] ity of [facility] 2019-06-14 2019-06-14 Outpatient R [facility] [id number] Univers 14:40:00 14:40:00 ity of [facility] 2019-05-28 2019-05-28 Emergency NicoleWEATHERFORD, UTDENISE [id number] Univers 20:59:13 23:56:00 Alec Farrell 350.1.13.10 i ty of Pain[place] 4.2.7.2.686 [facility] [id number] [facility] 084 Branch 2019-05-28 2019-05-28 Emergency X NICOLE [facility] ERT [id number] Univers 20:59:13 23:56:00 ALEC ity of [facility] 2019-05-28 2019-05-28 Emergency [place], [place] [id number] 20:59:13 23:56:00 Alec Farrell 350.1.13.10 Painter 4.2.7.2.686 [place] [id number] 084 2019-05-28 2019-05-28 Orders Doctor ILDEFONSO 1.2.840.114 [id number] Univers 00:00:00 00:00:00 Only Unassigned, JOSE [id number] ity of [place] [facility] 4.2.7.2.686 [facility] [id number] [address] 2019-05-28 2019-05-28 Orders Doctor FREGOSO [id number] 00:00:00 00:00:00 Only Unassigned, JOSE 350.1.13.10 [place] [facility] 4.2.7.2.686 [id number] [id number] Results Test Description Test Time Test Comments Results Result Comments Source GALV ONLY - SYPHILIS IGG/IGM 2020-12-03 15:29:02 Test Item Value Reference Range Interpretation Comme nts Syphilis IgG/IgM (test code = Non-reactive Non-reactive 08488-7) VIRIDIANA (test code = VIRIDIANA) Non-reactive - No serologic evidence of T. pallidum infection. Cannot exclude incubating or early syphilis. Submit a second specimen in 2-4 weeks if syphilis is clinically suspected. Equivocal - Further testing to follow. Reactive - Further testing to follow. Lab Interpretation (test code = Normal 05834-8) [facility] SYPHILIS [id number] 15:29:02 Test Item Value Reference Range Interpretation Comments Syphilis IgG/IgM (test Non-reactive Non-reactive code = 66216-4) VIRIDIANA (test code = VIRIDIANA) Non-reactive - No serologic evidence of T. pallidum infection. Cannot exclude incubating or early syphilis. Submit a second specimen in 2-4 weeks if syphilis is clinically suspected. Equivocal - Further testing to follow. Reactive - Further testing to follow. Lab Interpretation (test Normal code = 71706-8) [facility] Center[facility] B12, [id number] 23:31:33 Test Item Value Reference Range Interpretation Comments VIT B12 (test code = 367 pg/mL 240-930 7822598861) VIRIDIANA (test code = VIRIDIANA) Biotin has been reported to cause a positive bias, interpret results relative to patient's use of biotin. Lab Interpretation (test Normal code = 17657-4) [facility] B12, [id number] 23:31:33 Test Item Value Reference Range Interpretation Comments VIT B12 (test code = 367 pg/mL 240-930 4280340325) VIRIDIANA (test code = VIRIDIANA) Biotin has been reported to cause a positive bias, interpret results relative to patient's use of biotin. Lab Interpretation (test Normal code = 80152-7) [facility]2 AG-AB WITH [id number] 22:52:15 Test Item Value Reference Range Interpretation Comments HIV Negative Negative Semi-quantitative (test code = 09771-5) VIRIDIANA (test code = Non-reactive for HIV-1 VIRIDIANA) antigen and HIV-1/HIV-2 antibodies. ?No laboratory evidence of HIV infection. ?Repeat in 2-4 weeks if acute HIV infection is suspected. [facility]2 AG-AB WITH [id number] 22:52:15 Test Item Value Reference Range Interpretation Comments HIV Negative Negative Semi-quantitative (test code = 09209-2) VIRIDIANA (test code = Non-reactive for HIV-1 VIRIDIANA) antigen and HIV-1/HIV-2 antibodies. ?No laboratory evidence of HIV infection. ?Repeat in 2-4 weeks if acute HIV infection is suspected. [facility] CenterFOLATE2021-09-12 21:55:01 Test Item Value Reference Range Interpretation Comments FOLATE SER (test code = 10.1 ng/mL 3.0-20.0 6268963358) Lab Interpretation (test code = Normal 33385-1) [facility]2021-09-12 21:55:01 Test Item Value Reference Range Interpretation Comments FOLATE SER (test code = 10.1 ng/mL 3.0-20.0 7408072712) Lab Interpretation (test code = Normal 83631-9) [facility] CenterMagnesium [id number] 20:12:25 Test Item Value Reference Range Interpretation Comments MAGNESIUM (test code = 8279468471) 1.6 mg/dL 1.7-2.4 L Lab Interpretation (test code = Abnormal 76218-4) [facility] CenterMagnesium [id number] 20:12:25 Test Item Value Reference Range Interpretation Comments MAGNESIUM (test code = 3024568946) 1.6 mg/dL 1.7-2.4 L Lab Interpretation (test code = Abnormal 19146-0) [facility] CenterBas[facility] Metabolic Panel (Na, K, Cl, CO2, Glucose, BUN, Creatinine, Ca)2020-12-02 20:12:19 Test Item Value Reference Range Interpretation Comments NA (test code = 144 mmol/L 135-145 9628971320) K (test code = 3.3 mmol/L 3.5-5.0 L 1568711981) CL (test code = 114 mmol/L 98-108 H 9346603395) CO2 TOTAL (test code = 21 mmol/L 23-31 L 2661188423) AGAP (test code = 2-16 2213997053) BUN (test code = 4 mg/dL 7-23 L 6102673137) GLUCOSE (test code = 71 mg/dL 70-110 3420579627) CREATININE (test code = 0.57 mg/dL 0.50-1.04 8873344630) CALCIUM (test code = 7.8 mg/dL 8.6-10.6 L 0316141881) eGFR (test code = mL/min/1.73m2 8610698318) VIRIDIANA (test code = VIRIDIANA) Association of [...] tests). Lab Interpretation Abnormal (test code = 56958-3) [facility] Metabolic Panel (Na, K, Cl, CO2, Glucose, BUN, Creatinine, Ca)2020-12-02 20:12:19 Test Item Value Reference Range Interpretation Comments NA (test code = 144 mmol/L 135-145 2135706070) K (test code = 3.3 mmol/L 3.5-5.0 L 6740142245) CL (test code = 114 mmol/L 98-108 H 8902503221) CO2 TOTAL (test code = 21 mmol/L 23-31 L 0268658102) AGAP (test code = 2-16 9040986373) BUN (test code = 4 mg/dL 7-23 L 3705003157) GLUCOSE (test code = 71 mg/dL 70-110 8561331268) CREATININE (test code = 0.57 mg/dL 0.50-1.04 7846454527) CALCIUM (test code = 7.8 mg/dL 8.6-10.6 L 1433291310) eGFR (test code = mL/min/1.73m2 8030612463) VIRIDIANA (test code = VIRIDIANA) Association of [...] tests). Lab Interpretation Abnormal (test code = 59476-1) [facility] [id number] 20:10:53 Test Item Value Reference Range Interpretation Comments PHOSPHORUS (test code = 8087354518) 3.7 mg/dL 2.5-5.0 Lab Interpretation (test code = Normal 35416-1) [facility] [id number] 20:10:53 Test Item Value Reference Range Interpretation Comments PHOSPHORUS (test code = 5360389285) 3.7 mg/dL 2.5-5.0 Lab Interpretation (test code = Normal 10004-7) [facility] CenterCreatine Kinase (CK)2020-12-02 20:10:47 Test Item Value Reference Range Interpretation Comments CK (test code = 0756840674) 59 U/L 33-194 Lab Interpretation (test code = Normal 91313-1) [facility] CenterCreatine Kinase (CK)2020-12-02 20:10:47 Test Item Value Reference Range Interpretation Comments CK (test code = 2245712181) 59 U/L 33-194 Lab Interpretation (test code = Normal 10511-1) [facility] with [id number] 20:10:42 Test Item Value Reference Range Interpretation Comments WBC (test code = See_Comment [Automated 5890-2) message] The sy stem which generated this [...] RDW-SD (test code = 41.4 fL 38.5-49.0 33293-3) RDW-CV (test code = 13.2 % 11.5-14.0 788-0) PLT (test code = See_Comment L [Automated 777-3) message] The sy stem which generated this result transmitted reference range : 135 - 361 10*3/ ?L. The reference r lorene was not used to interpret this result as normal/abnormal . MPV (test code = 13.3 fL 9.4-13.3 34894-9) NRBC/100 WBC (test See_Comment [Automat ed code = 3122954851) message] The system which generated this result transmitted reference range : 0.0 - 10.0 /100 WBCs. The refer ence range was not u sed to interpret th is result as normal/abnormal . NRBC x10^3 (test code <0.01 See_Comment [Auto mated = 0866638646) message] The s ystem which generated this result transmitted reference range : 10*3/?L. The reference range was not used to interpret this result as normal/abnormal . GRAN MAT (NEUT) % 48.7 % (test code = 770-8) IMM GRAN % (test code 0.40 % = 1227248990) LYMPH % (test code = 39.4 % 736-9) MONO % (test code = 8.9 % 5905-5) EOS % (test code = 2.2 % 713-8) BASO % (test code = 0.4 % 706-2) GRAN MAT x10^3(ANC) 2.67 10*3/uL 1.50-10.30 (test code = 3734652938) IMM GRAN x10^3 (test <0.03 0.00-0.06 code = 8773366826) LYMPH x10^3 (test code 2.16 10*3/uL 0.70-7.40 = 731-0) MONO x10^3 (test code 0.49 10*3/uL 0.00-0.50 = 742-7) EOS x10^3 (test code = 0.12 10*3/uL 0.00-0.40 711-2) BASO x10^3 (test code <0.03 0.00-0.10 = 704-7) Lab Interpretation Abnormal (test code = 36713-2) [facility] with [id number] 20:10:42 Test Item Value Reference Range Interpretation Comments WBC (test code = See_Comment [Automated 6690-2) message] The sy stem which generated this result transmitted reference range : 4.50 - 13.50 10*3/?L. The reference range was not used to interpret this result as normal/abnormal . RBC (test code = See_Comment [Automated 729-8) message] The sy stem which generated this [...] RDW-SD (test code = 41.4 fL 38.5-49.0 02064-6) RDW-CV (test code = 13.2 % 11.5-14.0 788-0) PLT (test code = See_Comment L [Automated 777-3) message] The sy stem which generated this result transmitted reference range : 135 - 361 10*3/ ?L. The reference r lorene was not used to interpret this result as normal/abnormal . MPV (test code = 13.3 fL 9.4-13.3 66527-0) NRBC/100 WBC (test See_Comment [Automat ed code = 6370908475) message] The system which generated this result transmitted reference range : 0.0 - 10.0 /100 WBCs. The refer ence range was not u sed to interpret th is result as normal/abnormal . NRBC x10^3 (test code <0.01 See_Comment [Auto mated = 3825540634) message] The s ystem which generated this result transmitted reference range : 10*3/?L. The reference range was not used to interpret this result as normal/abnormal . GRAN MAT (NEUT) % 48.7 % (test code = 770-8) IMM GRAN % (test code 0.40 % = 5955632229) LYMPH % (test code = 39.4 % 736-9) MONO % (test code = 8.9 % 5905-5) EOS % (test code = 2.2 % 713-8) BASO % (test code = 0.4 % 706-2) GRAN MAT x10^3(ANC) 2.67 10*3/uL 1.50-10.30 (test code = 9425456444) IMM GRAN x10^3 (test <0.03 0.00-0.06 code = 5400437142) LYMPH x10^3 (test code 2.16 10*3/uL 0.70-7.40 = 731-0) MONO x10^3 (test code 0.49 10*3/uL 0.00-0.50 = 742-7) EOS x10^3 (test code = 0.12 10*3/uL 0.00-0.40 711-2) BASO x10^3 (test code <0.03 0.00-0.10 = 704-7) Lab Interpretation Abnormal (test code = 11086-9) [facility] CenterThyroid Stimulating [id number] 16:37:32 Test Item Value Reference Range Interpretation Comments TSH (test code = See_Comment Biotin has been 5093822640) reported to cau se a negative bias, interpret resul ts relative to pat ient's use of biotin. [Automated mess age] The system [employer] generated this result transmitted ref erence range: 0.45 - 4 .70 mIU/L. The refe rence range was not u sed to interpret this result as normal/abnor mal. Lab Interpretation (test Normal code = 88198-6) [facility] CenterThy[facility] Stimulating [id number] 16:37:32 Test Item Value Reference Range Interpretation Comments TSH (test code = See_Comment Biotin has been 4255256037) reported to cau se a negative bias, interpret resul ts relative to pat ient's use of biotin. [Automated mess age] The system [employer] generated this result transmitted ref erence range: 0.45 - 4 .70 mIU/L. The refe rence range was not u sed to interpret this result as normal/abnor mal. Lab Interpretation (test Normal code = 44493-8) [facility] CenterURINE DRUG (IMMUNOASSAY) - COMPREHENSIVE DRUG SCREEN W/O [id number] 07:41:34 Test Item Value Reference Range Interpretation Comments AMPHET (test code = Negative Negative 6390798265) FABIO U (test code = Negative Negative 0463248048) BENZO U (test code = Negative Negative 3568196296) Cocaine Metabolite (test Negative Negative code = 2100985104) METHADONE (test code = Negative Negative 4427143462) OPIATES (test code = Negative Negative 9373461251) PCP (test code = Negative Negative 0838179987) THC (test code = Presumptive Positive Negative A 4370066905) VIRIDIANA (test code = VIRIDIANA) Urine Drug [...] testing). Lab Interpretation (test Abnormal code = 25841-1) [facility] (IMMUNOASSAY) - COMPREHENSIVE DRUG SCREEN W/O [id number] 07:41:34 Test Item Value Reference Range Interpretation Comments AMPHET (test code = Negative Negative 3745108280) FABIO U (test code = Negative Negative 5420499231) BENZO U (test code = Negative Negative 3049058780) Cocaine Metabolite (test Negative Negative code = 7439620241) METHADONE (test code = Negative Negative 9604399996) OPIATES (test code = Negative Negative 4152371875) PCP (test code = Negative Negative 0211282735) THC (test code = Presumptive Positive Negative A 2079461134) VIRIDIANA (test code = VIRIDIANA) Urine Drug [...] testing). Lab Interpretation (test Abnormal code = 20314-3) [facility] CenterCOMP. METABOLIC PANEL (68091)2020-12-02 07:38:37 Test Item Value Reference Range Interpretation Comments NA (test code = 138 mmol/L 135-145 9312591347) K (test code = 3.8 mmol/L 3.5-5.0 2175940777) CL (test code = 108 mmol/L 98-108 7800245306) CO2 TOTAL (test code = 23 mmol/L 23-31 0329300218) AGAP (test code = 2-16 4211244312) BUN (test code = 5 mg/dL 7-23 L 2496189590) GLUCOSE (test code = 93 mg/dL 70-110 9354401151) CREATININE (test code = 0.61 mg/dL 0.50-1.04 2147317363) TOTAL BILI (test code = 0.7 mg/dL 0.1-1.3 8823464824) CALCIUM (test code = 8.6 mg/dL 8.6-10.6 5978828682) T PROTEIN (test code = 6.5 g/dL 6.3-8.2 1505739565) ALBUMIN (test code = 3.9 g/dL 3.5-5.0 2316297438) ALK PHOS (test code = 56 U/L 34-122 0998589971) ALTv (test code = 15 U/L 5-35 2-6) AST(SGOT) (test code = 28 U/L 13-40 0514093498) eGFR (test code = mL/min/1.73m2 5483169728) VIRIDIANA (test code = VIRIDIANA) Association of [...] tests). Lab Interpretation Abnormal (test code = 86370-4) [facility]. METABOLIC PANEL (95040)2020-12-02 07:38:37 Test Item Value Reference Range Interpretation Comments NA (test code = 138 mmol/L 135-145 3821681535) K (test code = 3.8 mmol/L 3.5-5.0 2141855031) CL (test code = 108 mmol/L 98-108 8552539861) CO2 TOTAL (test code = 23 mmol/L 23-31 7132209483) AGAP (test code = 2-16 4142919819) BUN (test code = 5 mg/dL 7-23 L 3502554779) GLUCOSE (test code = 93 mg/dL 70-110 9600374898) CREATININE (test code = 0.61 mg/dL 0.50-1.04 2826965011) TOTAL BILI (test code = 0.7 mg/dL 0.1-1.9 3050635850) CALCIUM (test code = 8.6 mg/dL 8.6-10.6 9615170901) T PROTEIN (test code = 6.5 g/dL 6.3-8.2 4590922456) ALBUMIN (test code = 3.9 g/dL 3.5-5.0 8318073550) ALK PHOS (test code = 56 U/L 34-122 0320783723) ALTv (test code = 15 U/L 5-35 1742-6) AST(SGOT) (test code = 28 U/L 13-40 8472244914) eGFR (test code = mL/min/1.73m2 8528281982) VIRIDIANA (test code = VIRIDIANA) Association of [...] tests). Lab Interpretation Abnormal (test code = 60638-6) [facility] CenterCREATINE [id number] 07:38:17 Test Item Value Reference Range Interpretation Comments CK (test code = 1388333785) 62 U/L 33-194 Lab Interpretation (test code = Normal 93370-2) [facility] CenterCREATINE [id number] 07:38:17 Test Item Value Reference Range Interpretation Comments CK (test code = 1825795993) 62 U/L 33-194 Lab Interpretation (test code = Normal 01192-7) [facility] CenterURINALYSIS2021-09-12 07:07:10 Test Item Value Reference Range Interpretation Comments APPEARANCE (test code = Cloudy Clear A 4882244198) COLOR (test code = Yellow Yellow 2464855452) PH (test code = 4.8-8.0 2490916403) SP GRAVITY (test code = 1.003-1.030 3846964533) GLU U QUAL (test code = Normal Normal 7223660752) BLOOD (test code = Negative Negative 2004175976) KETONES (test code = 5 mg/dL Negative A 8069065078) PROTEIN (test code = 100 mg/dL Negative A 2887-8) UROBILIN (test code = 2.0 mg/dL Normal A 2802833280) BILIRUBIN (test code = Negative Negative 1293795441) NITRITE (test code = Negative Negative 7935374558) LEUK DENNIS (test code = 500/uL Negative A 7183443225) RBC/HPF (test code = See_Comment [Autom ated message] 5894677488) The system [employer] generated this result transmit carole reference range : 0 - 3 HPF. The refe rence range was not u sed to interpret th is result as normal/abnormal . WBC/HPF (test code = See_Comment H [Autom ated message] 5770029376) The system [employer] generated this result transmit carole reference range : 0 - 5 HPF. The refe rence range was not u sed to interpret th is result as normal/abnormal . BACTERIA (test code = Many Negative A 3467702001) MUCOUS (test code = Moderate Negative LPF A 8666533974) SQ EPITH (test code = HPF 0298043065) CA OXALATE (test code = See_Comment [Au tomated message] 4105827807) The system [employer] generated this result transmit carole reference range : <=1 HPF. The refere nce range was not u sed to interpret th is result as normal/abnormal . HYAL CAST (test code = See_Comment H [Aut omated message] 3167763911) The system [employer] generated this result transmit carole reference range : <=2 LPF. The refere nce range was not u sed to interpret th is result as normal/abnormal . Lab Interpretation (test Abnormal code = 74476-4) [facility] Test Item Value Reference Range Interpretation Comments APPEARANCE (test code = Cloudy Clear A 1083486297) COLOR (test code = Yellow Yellow 4899932154) PH (test code = 4.8-8.0 4278259149) SP GRAVITY (test code = 1.003-1.030 2339259515) GLU U QUAL (test code = Normal Normal 4952467756) BLOOD (test code = Negative Negative 3613018707) KETONES (test code = 5 mg/dL Negative A 5948146133) PROTEIN (test code = 100 mg/dL Negative A 2887-8) UROBILIN (test code = 2.0 mg/dL Normal A 4519497458) BILIRUBIN (test code = Negative Negative 8805919635) NITRITE (test code = Negative Negative 9047651348) LEUK DENNIS (test code = 500/uL Negative A 6065479178) RBC/HPF (test code = See_Comment [Autom ated message] 1743441139) The system [employer] generated this result transmit carole reference range : 0 - 3 HPF. The refe rence range was not u sed to interpret th is result as normal/abnormal . WBC/HPF (test code = See_Comment H [Autom ated message] 8020277399) The system [employer] generated this result transmit carole reference range : 0 - 5 HPF. The refe rence range was not u sed to interpret th is result as normal/abnormal . BACTERIA (test code = Many Negative A 0582433889) MUCOUS (test code = Moderate Negative LPF A 5918576315) SQ EPITH (test code = HPF 4909316627) CA OXALATE (test code = See_Comment [Au tomated message] 8236775329) The system [employer] generated this result transmit carole reference range : <=1 HPF. The refere nce range was not u sed to interpret th is result as normal/abnormal . HYAL CAST (test code = See_Comment H [Aut omated message] 7068002119) The system [employer] generated this result transmit carole reference range : <=2 LPF. The refere nce range was not u sed to interpret th is result as normal/abnormal . Lab Interpretation (test Abnormal code = 19361-6) [facility] NOW RAPID TESTING)2020-12-02 06:56:19 Test Item Value Reference Range Interpretation Comments SARS-CoV-2 Rapid ID NOW Not Detected Not Detected (test code = 31987-0) VIRIDIANA (test code = VIRIDIANA) ID NOW COVID-19 Assay is an isothermal nucleic acid amplification test intended for the qualitative detection of nucleic acid from SARS-CoV-2 viral RNA in nasopharyngeal (LITERACY TEACHER) specimens. It is used under Emergency Use [...] indicated. Lab Interpretation Normal (test code = 03529-6) [facility]ID [facility])2020-12-02 06:56:19 Test Item Value Reference Range Interpretation Comments SARS-CoV-2 Rapid ID NOW Not Detected Not Detected (test code = 96892-7) VIRIDIANA (test code = VIRIDIANA) ID NOW COVID-19 Assay is an isothermal nucleic acid amplification test intended for the qualitative detection of nucleic acid from SARS-CoV-2 viral RNA in nasopharyngeal (LITERACY TEACHER) specimens. It is used under Emergency Use [...] indicated. Lab Interpretation Normal (test code = 44702-9) [facility] WITH [id number] 06:42:15 Test Item Value Reference Range Interpretation Comments WBC (test code = See_Comment [Automated message] 6090-2) The system [employer] generated this result transmitted ref erence range: 4.50 - 1 3.50 10*3/?L. The re ference range was not u sed to interpret this result as normal/abnor mal. RBC (test code = See_Comment [Automated message] 159-8) The system [employer] generated this result transmitted ref erence range: [...] RDW-SD (test code 40.5 fL 38.5-49.0 = 51748-2) RDW-CV (test code 13.1 % 11.5-14.0 = 788-0) PLT (test code = See_Comment [Automated message] 777-3) The system whic h generated this result transmitted ref erence range: 135 - 36 1 10*3/?L. The re ference range was not u sed to interpret this result as normal/abnor mal. MPV (test code = 12.9 fL 9.4-13.3 51401-4) NRBC/100 WBC (test See_Comment [Automat ed message] code = 9376456679) The syste m which generated this result transmitted ref erence range: 0.0 - 10 .0 /100 WBCs. The refer ence range was not u sed to interpret this result as normal/abnor mal. NRBC x10^3 (test <0.01 See_Comment [Automated message] code = 9821755121) The syste m which generated this result transmitted ref erence range: 10*3/?L. The reference range was not used to interpr et this result as normal/abnormal . GRAN MAT (NEUT) % 63.7 % (test code = 770-8) IMM GRAN % (test 0.40 % code = 9211330870) LYMPH % (test code 27.4 % = 736-9) MONO % (test code 7.2 % = 5905-5) EOS % (test code = 1.0 % 713-8) BASO % (test code 0.3 % = 706-2) GRAN MAT 4.40 10*3/uL 1.50-10.30 x10^3(ANC) (test code = 8135262688) IMM GRAN x10^3 0.03 10*3/uL 0.00-0.06 (test code = 8387288633) LYMPH x10^3 (test 1.89 10*3/uL 0.70-7.40 code = 731-0) MONO x10^3 (test 0.50 10*3/uL 0.00-0.50 code = 742-7) EOS x10^3 (test 0.07 10*3/uL 0.00-0.40 code = 711-2) BASO x10^3 (test <0.03 0.00-0.10 code = 704-7) [facility] WITH [id number] 06:42:15 Test Item Value Reference Range Interpretation Comments WBC (test code = See_Comment [Automated message] 8790-2) The system [employer] generated this result transmitted ref erence range: 4.50 - 1 3.50 10*3/?L. The re ference range was not u sed to interpret this result as normal/abnor mal. RBC (test code = See_Comment [Automated message] 749-8) The system [employer] generated this result transmitted ref erence range: [...] RDW-SD (test code 40.5 fL 38.5-49.0 = 55325-8) RDW-CV (test code 13.1 % 11.5-14.0 = 788-0) PLT (test code = See_Comment [Automated message] 777-3) The system [employer] generated this result transmitted ref erence range: 135 - 36 1 10*3/?L. The re ference range was not u sed to interpret this result as normal/abnor mal. MPV (test code = 12.9 fL 9.4-13.3 31373-2) NRBC/100 WBC (test See_Comment [Automat ed message] code = 7446642041) The syste m which generated this result transmitted ref erence range: 0.0 - 10 .0 /100 WBCs. The refer ence range was not u sed to interpret this result as normal/abnor mal. NRBC x10^3 (test <0.01 See_Comment [Automated message] code = 0358220955) The syste m which generated this result transmitted ref erence range: 10*3/?L. The reference range was not used to interpr et this result as normal/abnormal . GRAN MAT (NEUT) % 63.7 % (test code = 770-8) IMM GRAN % (test 0.40 % code = 6171376867) LYMPH % (test code 27.4 % = 736-9) MONO % (test code 7.2 % = 5905-5) EOS % (test code = 1.0 % 713-8) BASO % (test code 0.3 % = 706-2) GRAN MAT 4.40 10*3/uL 1.50-10.30 x10^3(ANC) (test code = 0216972990) IMM GRAN x10^3 0.03 10*3/uL 0.00-0.06 (test code = 0961336220) LYMPH x10^3 (test 1.89 10*3/uL 0.70-7.40 code = 731-0) MONO x10^3 (test 0.50 10*3/uL 0.00-0.50 code = 742-7) EOS x10^3 (test 0.07 10*3/uL 0.00-0.40 code = 711-2) BASO x10^3 (test <0.03 0.00-0.10 code = 704-7) [facility] [id number] 06:36:00 Test Item Value Reference Range Interpretation Comments POCT PREG (test code = 1605) neg On board controls acceptable with yes C Line (test code = 3574) POCT PREG LOT # (test code = [id number]) POCT PREG TEST DATE (test code = 3576) Lab Interpretation (test code = Normal 88835-5) [facility] [id number] 06:36:00 Test Item Value Reference Range Interpretation Comments POCT PREG (test code = 1605) neg On board controls acceptable with yes C Line (test code = 3574) POCT PREG LOT # (test code = [id number]) POCT PREG TEST DATE (test code = 3576) Lab Interpretation (test code = Normal 25356-9) [facility] [id number] 06:31:07 Test Item Value Reference Range Interpretation Comments LACTIC ACID (test code = 2.66 mmol/L 0.50-2.20 H 4567466374) Lab Interpretation (test code = Abnormal 57483-5) [facility] Whole [id number] 06:31:07 Test Item Value Reference Range Interpretation Comments LACTIC ACID (test code = 2.66 mmol/L 0.50-2.20 H 0795939321) Lab Interpretation (test code = Abnormal 30910-2) [facility] CenterCREATINE [id number] 08:22:54 Test Item Value Reference Range Interpretation Comments CK (test code = 0385990133) 101 U/L 33-194 Lab Interpretation (test code = Normal 72587-9) [facility] CenterCREATINE [id number] 08:22:54 Test Item Value Reference Range Interpretation Comments CK (test code = 6563655723) 101 U/L 33-194 Lab Interpretation (test code = Normal 70013-8) [facility] HEAD WO [id number] 07:07:23 Impression: No CT evidence for acute intracranial abnormality. RL: 460 AFC: [id number] Ordering physician: CHAUNCEY SMITH Indication: Altered level [...] evidence for acute intracranial abnormal ity.RL: 460AFC: [id number] signed by Pooja Rowland MD, PhD at 11/30/2020 2:07 [facility] [id number] 07:07:23Impression: No CT evidence for acute intracranial abnormality. RL: 460 AFC: [id number] Ordering physician: CHAUNCEY SMITH Indication: Altered level [...] evidence for acute intracranial abnormal ity.RL: 460AFC: [id number] signed by Pooja Rowland MD, PhD at 11/30/2020 2:07 [facility] SystemDR[facility] S[facility]EN PANEL 2 URINE 2020-11-30 05:54:09 Test Item Value Reference Range Interpretation Comments AMPHET (test code = Negative Negative 3012064215) FABIO U (test code = Negative Negative 7300468720) BENZO U (test code = Presumptive Positive Negative A 6019004162) Cocaine Metabolite (test Negative Negative code = 0146465078) METHADONE (test code = Negative Negative 0447758274) OPIATES (test code = Negative Negative 7407231780) PCP (test code = Negative Negative 6343029306) THC (test code = Presumptive Positive Negative A 1903972078) VIRIDIANA (test code = VIRIDIANA) Urine Drug [...] testing). Lab Interpretation (test Abnormal code = 58821-3) [facility] [id number] 05:54:09 Test Item Value Reference Range Interpretation Comments AMPHET (test code = Negative Negative 6379960372) FABIO U (test code = Negative Negative 1340976635) BENZO U (test code = Presumptive Positive Negative A 2583694095) Cocaine Metabolite (test Negative Negative code = 1793630840) METHADONE (test code = Negative Negative 1487582380) OPIATES (test code = Negative Negative 0147465938) PCP (test code = Negative Negative 3478491772) THC (test code = Presumptive Positive Negative A 6955153791) VIRIDIANA (test code = VIRIDIANA) Urine Drug [...] testing). Lab Interpretation (test Abnormal code = 46696-4) [facility]-19 (ID NOW RAPID TESTING)2020-11-30 05:49:31 Test Item Value Reference Range Interpretation Comments SARS-CoV-2 Rapid ID NOW Not Detected Not Detected (test code = 05014-0) VIRIDIANA (test code = VIRIDIANA) ID NOW COVID-19 Assay is an isothermal nucleic acid amplification test intended for the qualitative detection of nucleic acid from SARS-CoV-2 viral RNA in nasopharyngeal (LITERACY TEACHER) specimens. It is used under Emergency Use [...] indicated. Lab Interpretation Normal (test code = 81739-7) [facility]-19 (ID NOW RAPID TESTING)2020-11-30 05:49:31 Test Item Value Reference Range Interpretation Comments SARS-CoV-2 Rapid ID NOW Not Detected Not Detected (test code = 81358-8) VIRIDIANA (test code = VIRIDIANA) ID NOW COVID-19 Assay is an isothermal nucleic acid amplification test intended for the qualitative detection of nucleic acid from SARS-CoV-2 viral RNA in nasopharyngeal (LITERACY TEACHER) specimens. It is used under Emergency Use [...] indicated. Lab Interpretation Normal (test code = 06058-0) [facility] 05:49:21 Test Item Value Reference Range Interpretation Comments APPEARANCE (test code = Hazy Clear A 8689356520) COLOR (test code = Lazara Yellow A 2005249180) PH (test code = 4.8-8.0 6190712957) SP GRAVITY (test code = 1.003-1.030 5934836109) GLU U QUAL (test code = Normal Normal 2721293386) BLOOD (test code = Negative Negative Interfere nce from 8113746984) ascorbic acid m ay cause false neg ative results. KETONES (test code = 20 mg/dL Negative A 1025056177) PROTEIN (test code = 30 mg/dL Negative A 2887-8) UROBILIN (test code = 4.0 mg/dL Normal A 2070569474) BILIRUBIN (test code = Negative Negative 1269969912) NITRITE (test code = Negative Negative 9610743084) LEUK DENNIS (test code = 500/uL Negative A 1394128803) RBC/HPF (test code = See_Comment H [Autom ated message] 7354620278) The system [employer] generated this result transmitted ref erence range: 0 - 3 HP F. The reference range was not used to int erpret this result as normal/abnormal . WBC/HPF (test code = See_Comment H [Autom ated message] 2929060178) The system [employer] generated this result transmitted ref erence range: 0 - 5 HP F. The reference range was not used to int erpret this result as normal/abnormal . BACTERIA (test code = Few Negative A 4918745744) MUCOUS (test code = Slight Negative LPF A 2042305528) SQ EPITH (test code = HPF 5248570802) Lab Interpretation Abnormal (test code = 53919-6) [facility] 05:49:21 Test Item Value Reference Range Interpretation Comments APPEARANCE (test code = Hazy Clear A 2581271084) COLOR (test code = Lazara Yellow A 5276996602) PH (test code = 4.8-8.0 0104074734) SP GRAVITY (test code = 1.003-1.030 2196864690) GLU U QUAL (test code = Normal Normal 4609941572) BLOOD (test code = Negative Negative Interfere nce from 9188138723) ascorbic acid m ay cause false neg ative results. KETONES (test code = 20 mg/dL Negative A 7122826272) PROTEIN (test code = 30 mg/dL Negative A 2887-8) UROBILIN (test code = 4.0 mg/dL Normal A 3103609135) BILIRUBIN (test code = Negative Negative 0363931785) NITRITE (test code = Negative Negative 4517581099) LEUK DENNIS (test code = 500/uL Negative A 7477005218) RBC/HPF (test code = See_Comment H [Autom ated message] 2206274941) The system [employer] generated this result transmitted ref erence range: 0 - 3 HP F. The reference range was not used to int erpret this result as normal/abnormal . WBC/HPF (test code = See_Comment H [Autom ated message] 0364466255) The system [employer] generated this result transmitted ref erence range: 0 - 5 HP F. The reference range was not used to int erpret this result as normal/abnormal . BACTERIA (test code = Few Negative A 5977700880) MUCOUS (test code = Slight Negative LPF A 0642961758) SQ EPITH (test code = HPF 0521492398) Lab Interpretation Abnormal (test code = 11657-9) [facility]MAG[facility]UM2021-[facility]-10 05:47:51 Test Item Value Reference Range Interpretation Comments MAGNESIUM (test code = 1778803757) 2.1 mg/dL 1.7-2.4 Lab Interpretation (test code = Normal 55899-1) [facility]MAG[facility]UM2021-09-10 05:47:51 Test Item Value Reference Range Interpretation Comments MAGNESIUM (test code = 1378389210) 2.1 mg/dL 1.7-2.4 Lab Interpretation (test code = Normal 88217-2) [facility] CenterCOM. METABOLIC PANEL (68723)2020-11-30 05:47:35 Test Item Value Reference Range Interpretation Comments NA (test code = 139 mmol/L 135-145 7139084987) K (test code = 3.4 mmol/L 3.5-5.0 L 6411343034) CL (test code = 105 mmol/L 98-108 2087991904) CO2 TOTAL (test code = 24 mmol/L 23-31 8166551789) AGAP (test code = 2-16 9663206479) BUN (test code = 8 mg/dL 7-23 7910763369) GLUCOSE (test code = 84 mg/dL 70-110 3141302741) CREATININE (test code = 0.70 mg/dL 0.50-1.04 5059686647) TOTAL BILI (test code = 0.6 mg/dL 0.1-1.8 9044095047) CALCIUM (test code = 9.3 mg/dL 8.6-10.6 5879215724) T PROTEIN (test code = 7.7 g/dL 6.3-8.2 1500324085) ALBUMIN (test code = 4.6 g/dL 3.5-5.0 9983089721) ALK PHOS (test code = 76 U/L 34-122 5437873337) ALTv (test code = 19 U/L 5-35 1742-6) AST(SGOT) (test code = 25 U/L 13-40 9726743328) eGFR (test code = mL/min/1.73m2 1286823552) VIRIDIANA (test code = IVRIDIANA) Association of Glomerular Filtration Rate (GFR) and [...] tests). Lab Interpretation Abnormal (test code = 62019-8) [facility]. METABOLIC PANEL (50674)2020-11-30 05:47:35 Test Item Value Reference Range Interpretation Comments NA (test code = 139 mmol/L 135-145 2937621905) K (test code = 3.4 mmol/L 3.5-5.0 L 2354212860) CL (test code = 105 mmol/L 98-108 2592502998) CO2 TOTAL (test code = 24 mmol/L 23-31 2054228379) AGAP (test code = 2-16 1800124714) BUN (test code = 8 mg/dL 7-23 5197344106) GLUCOSE (test code = 84 mg/dL 70-110 3694449606) CREATININE (test code = 0.70 mg/dL 0.50-1.04 1394043074) TOTAL BILI (test code = 0.6 mg/dL 0.1-1.9 4534050096) CALCIUM (test code = 9.3 mg/dL 8.6-10.6 9220781544) T PROTEIN (test code = 7.7 g/dL 6.3-8.2 7479001976) ALBUMIN (test code = 4.6 g/dL 3.5-5.0 7596347937) ALK PHOS (test code = 76 U/L 34-122 3064207906) ALTv (test code = 19 U/L 5-35 1742-6) AST(SGOT) (test code = 25 U/L 13-40 6700843679) eGFR (test code = mL/min/1.73m2 4081250469) VIRIDIANA (test code = VIRIDIANA) Association of [...] tests). Lab Interpretation Abnormal (test code = 63609-0) [facility]PO[facility] (AUTOMATED)2020-11-30 05:45:23 Test Item Value Reference Range Interpretation Comments POCT GLU (test code = 0723196791) 83 mg/dL 70-110 Lab Interpretation (test code = Normal 31832-1) [facility] ([facility]ATED)2020-11-30 05:45:23 Test Item Value Reference Range Interpretation Comments POCT GLU (test code = 4221035875) 83 mg/dL 70-110 Lab Interpretation (test code = Normal 88753-3) [facility] CenterAC [facility] 20 + LACTIC [id number] 05:35:20 Test Item Value Reference Range Interpretation Comments PH (test code = 2) 7.35-7.45 PCO2 (test code = See_Comment [Automat ed 2895276190) message] The sy stem which generated this result transmitted reference range : 35 - 45 mmHg. The reference range was not used to interpret this result as normal/abnormal . PO2 (test code = See_Comment H [Automated 0527412412) message] The sy stem which generated this result transmitted reference range : 80 - 100 mmHg. The reference range was not used to interpret this result as normal/abnormal . HCO3 (test code = See_Comment [Automate d 0630785197) message] The sy stem which generated this result transmitted reference range : 22 - 26 mEq/L. The reference range was not used to interpret this result as normal/abnormal . BE (test code = See_Comment [Automated 5566824332) message] The sy stem which generated this result transmitted reference range : -3.0 - 3.0 mEq/ L. The reference r lorene was not used to interpret this result as normal/abnormal . THB (test code = 13.4 g/dL 12.0-16.0 3604844914) %O2HB (test code = 98.5 % 94.0-99.0 1353155140) %COHB ART (test code = 0.0 % 0.0-1.5 1634413724) %METHB ART (test code = 0.3 % 0.4-1.5 L 6893271721) VOL%O2 ART (test code = 18.8 % 15.0-23.0 1442018231) NA (test code = 137 mmol/L 135-145 4877005399) K+ (test code = 3.5 mmol/L 3.5-5.0 7407832039) AC CA IONZ (test code = 4.60 mg/dL 4.50-5.30 5332885016) GLUCOSE (test code = 81 mg/dL 70-110 4323234757) LACTIC ACID (test code 0.87 mmol/L 0.50-2.20 = 0022948140) Lab Interpretation Abnormal (test code = 60841-9) [facility] + LACTIC [id number] 05:35:20 Test Item Value Reference Range Interpretation Comments PH (test code = 2) 7.35-7.45 PCO2 (test code = See_Comment [Automat ed 0467655108) message] The sy stem which generated this result transmitted reference range : 35 - 45 mmHg. The reference range was not used to interpret this result as normal/abnormal . PO2 (test code = See_Comment H [Automated 0605288356) message] The sy stem which generated this result transmitted reference range : 80 - 100 mmHg. The reference range was not used to interpret this result as normal/abnormal . HCO3 (test code = See_Comment [Automate d 4964262419) message] The sy stem which generated this result transmitted reference range : 22 - 26 mEq/L. The reference range was not used to interpret this result as normal/abnormal . BE (test code = See_Comment [Automated 8709007379) message] The sy stem which generated this result transmitted reference range : -3.0 - 3.0 mEq/ L. The reference r lorene was not used to interpret this result as normal/abnormal . THB (test code = 13.4 g/dL 12.0-16.0 0199906379) %O2HB (test code = 98.5 % 94.0-99.0 9030401554) %COHB ART (test code = 0.0 % 0.0-1.5 6415369715) %METHB ART (test code = 0.3 % 0.4-1.5 L 3665156265) VOL%O2 ART (test code = 18.8 % 15.0-23.0 2991025517) NA (test code = 137 mmol/L 135-145 8587666083) K+ (test code = 3.5 mmol/L 3.5-5.0 4984547473) AC CA IONZ (test code = 4.60 mg/dL 4.50-5.30 7412952063) GLUCOSE (test code = 81 mg/dL 70-110 6042680829) LACTIC ACID (test code 0.87 mmol/L 0.50-2.20 = 8115044910) Lab Interpretation Abnormal (test code = 04758-3) [facility] WITH [id number] 05:33:34 Test Item Value Reference Range Interpretation Comments WBC (test code = See_Comment [Automated 8690-2) message] The sy stem which generated this [...] RDW-SD (test code = 41.1 fL 38.5-49.0 61983-4) RDW-CV (test code = 13.2 % 11.5-14.0 788-0) PLT (test code = See_Comment [Automated 777-3) message] The sy stem which generated this result transmitted reference range : 135 - 361 10*3/ ?L. The reference r lorene was not used to interpret this result as normal/abnormal . MPV (test code = 12.5 fL 9.4-13.3 46834-7) NRBC/100 WBC (test See_Comment [Automat ed code = 3696740310) message] The system which generated this result transmitted reference range : 0.0 - 10.0 /100 WBCs. The refer ence range was not u sed to interpret th is result as normal/abnormal . NRBC x10^3 (test code <0.01 See_Comment [Auto mated = 9522811386) message] The s ystem which generated this result transmitted reference range : 10*3/?L. The reference range was not used to interpret this result as normal/abnormal . GRAN MAT (NEUT) % 59.1 % (test code = 770-8) IMM GRAN % (test code 0.40 % = 2713099792) LYMPH % (test code = 31.7 % 736-9) MONO % (test code = 7.0 % 5905-5) EOS % (test code = 1.3 % 713-8) BASO % (test code = 0.5 % 706-2) GRAN MAT x10^3(ANC) 4.58 10*3/uL 1.50-10.30 (test code = 4181592091) IMM GRAN x10^3 (test 0.03 10*3/uL 0.00-0.06 code = 7426050714) LYMPH x10^3 (test code 2.45 10*3/uL 0.70-7.40 = 731-0) MONO x10^3 (test code 0.54 10*3/uL 0.00-0.50 H = 742-7) EOS x10^3 (test code = 0.10 10*3/uL 0.00-0.40 711-2) BASO x10^3 (test code 0.04 10*3/uL 0.00-0.10 = 704-7) Lab Interpretation Abnormal (test code = 35957-9) [facility] WITH [id number] 05:33:34 Test Item Value Reference Range Interpretation Comments WBC (test code = See_Comment [Automated 2142-2) message] The sy stem which generated this result transmitted reference range : 4.50 - 13.50 10*3/?L. The reference range was not used to interpret this result as normal/abnormal . RBC (test code = See_Comment [Automated 114-8) message] The sy stem which generated this [...] RDW-SD (test code = 41.1 fL 38.5-49.0 61782-9) RDW-CV (test code = 13.2 % 11.5-14.0 788-0) PLT (test code = See_Comment [Automated 777-3) message] The sy stem which generated this result transmitted reference range : 135 - 361 10*3/ ?L. The reference r lorene was not used to interpret this result as normal/abnormal . MPV (test code = 12.5 fL 9.4-13.3 16681-2) NRBC/100 WBC (test See_Comment [Automat ed code = [id number]) message] The system which generated this result transmitted reference range : 0.0 - 10.0 /100 WBCs. The refer ence range was not u sed to interpret th is result as normal/abnormal . NRBC x10^3 (test code <0.01 See_Comment [Auto mated = [id number]) message] The s ystem which generated this result transmitted reference range : 10*3/?L. The reference range was not used to interpret this result as normal/abnormal . GRAN MAT (NEUT) % 59.1 % (test code = 770-8) IMM GRAN % (test code 0.40 % = 8788224341) LYMPH % (test code = 31.7 % 736-9) MONO % (test code = 7.0 % 5905-5) EOS % (test code = 1.3 % 713-8) BASO % (test code = 0.5 % 706-2) GRAN MAT x10^3(ANC) 4.58 10*3/uL 1.50-10.30 (test code = 2615491468) IMM GRAN x10^3 (test 0.03 10*3/uL 0.00-0.06 code = 1125540276) LYMPH x10^3 (test code 2.45 10*3/uL 0.70-7.40 = 731-0) MONO x10^3 (test code 0.54 10*3/uL 0.00-0.50 H = 742-7) EOS x10^3 (test code = 0.10 10*3/uL 0.00-0.40 711-2) BASO x10^3 (test code 0.04 10*3/uL 0.00-0.10 = 704-7) Lab Interpretation Abnormal (test code = 13756-8) [facility] GLUCOSE(AGE >30DAYS)2020-11-30 05:31:00 Test Item Value Reference Range Interpretation Comments POCT Glu (age>30days) (test code = 83 mg/dL 70-110 3342) Lab Interpretation (test code = Normal 93651-4) [facility] GLUCOSE(AGE >30DAYS)2020-11-30 05:31:00 Test Item Value Reference Range Interpretation Comments POCT Glu (age>30days) (test code = 83 mg/dL 70-110 3342) Lab Interpretation (test code = Normal 06666-4) [facility] [id number] 05:26:00 Test Item Value Reference Range Interpretation Comments POCT PREG (test code = 1605) NEGATIVE On board controls acceptable with POSITIVE C Line (test code = 3574) POCT PREG LOT # (test code = 3575) [id number] POCT PREG TEST DATE (test 03/22/2022 code = 3576) Lab Interpretation (test code = Normal 12105-9) [facility] [id number] 05:26:00 Test Item Value Reference Range Interpretation Comments POCT PREG (test code = 1605) NEGATIVE On board controls acceptable with POSITIVE C Line (test code = 3574) POCT PREG LOT # (test code = 3575) [id number] POCT PREG TEST DATE (test 03/22/2022 code = 3576) Lab Interpretation (test code = Normal 00745-2) [facility] HEAD WO [id number] 04:38:43 1. No intracranial abnormalities.2. Left parietal [...] within normal limits for the patient's age. [facility], Radiant Results Inft User - 05/28/2019 10:39PM [...] with no skull fractureRL: 6190End of report [facility] 3 [id number] 04:36:57Unremarkable cervical spine radiographs RL: 6190 End [...] normal.IMPRESSIONUnremarkable cervical spine radiographsRL: 6190End of report [facility]"
[2021-06-25 02:27] LABS: Absolute Lymphocytes (CBC) 1.6 K/uL (0.7-4.9); Hematocrit 37.7 % (36.0-45.0); Lymphocytes % 23.9 % (15.3-44.8); MPV 10.5 fL (7.6-11.3)
[2021-06-25 02:42] LABS: ALT/SGPT 16 U/L (12-78); AST/SGOT 18 U/L (15-37); Albumin 3.8 g/dL (3.4-5.0); Alkaline Phosphatase 57 U/L (45-117); BUN Blood Urea Nitrogen 6 mg/dL (7-18); Bicarbonate 25 mmol/L (21-32); Bilirubin Total 0.3 mg/dL (0.2-1.0); Glucose Level 86 mg/dL (74-106); Potassium 3.9 mmol/L (3.5-5.1); Protein, Total 6.9 g/dL (6.4-8.2); Sodium Level 140 mmol/L (136-145)
--- NOTE | 2021-06-25 02:54 | ER ---
Nurse's Notes [facility] Name: Sofie Jensen Age: 20 yrs Sex: Female : 2000 Arrival Date: 06/24/2021 Time: 23:43 Bed 14 Private MD: Diagnosis: Other seizures Presentation: 06/24 23:44 Chief complaint: EMS states: seizure, patient found face down unresponsive. Risk al4 Assessment: Do you want to hurt yourself or someone else? Patient reports no desire to harm self or others. Onset of symptoms was June 24, 2021. 23:44 Method Of Arrival: EMS al4 23:44 Acuity: EN 3 al4 06/25 00:43 Coronavirus screen: At this time, the client does not indicate any symptoms associated al4 with coronavirus-19. Ebola Screen: No symptoms or risks identified at this time. Initial Sepsis Screen: Does the patient meet any 2 criteria? No. Patient's initial sepsis screen is negative. Does the patient have a suspected source of infection? No. Patient's initial sepsis screen is negative. Triage Assessment: 06/24 23:45 General: Appears in no apparent distress. Behavior is post ictal. Patient is alert to al4 person and place and able to talk to me. . Pain: Denies pain. Neuro: Level of Consciousness is obeys commands, post ictal, Oriented to person, place. Cardiovascular: Capillary refill < 3 seconds Patient's skin is warm and dry. Respiratory: Airway is patent Respiratory effort is unlabored, Respiratory pattern is regular. Musculoskeletal: Circulation, motion, and sensation intact. Historical: - PMHx: 23:45 Asthma; Seizure; al4 - Immunization history:: Adult Immunizations up to date, Client reports having NOT received the Covid vaccine. - Social history:: Smoking status: Patient denies any tobacco usage or history of. Screenin/05 00:42 Abuse screen: Denies threats or abuse. Nutritional screening: No deficits noted. al4 Tuberculosis screening: No symptoms or risk factors identified. Fall Risk No fall in past 12 months (0 pts). Secondary diagnosis (15 points) seizures, IV access (20 points). Ambulatory Aid- None/Bed Rest/Nurse Assist (0 pts). Gait- Normal/Bed Rest/Wheelchair (0 pts) Mental Status- Overestimates/Forgets Limitations (15 pts.). Total Walton Fall Scale indicates High Risk Score (45 or more points). Fall prevention measures have been instituted. Assessment: 00:40 Reassessment: see triage assessment. al4 01:28 Reassessment: Patient is able to follow commands. Patient is drowsy but aroused by name al4 calling or a tap on the shoulder. Patients cousin is at bedside. 02:00 Reassessment: patient does not know when lmp was. al4 02:16 Reassessment: Patient appears in no apparent distress at this time. Patient is alert, al4 oriented x 3, equal unlabored respirations, skin warm/dry/pink. patient is drowsy, but easily awakened to voice. . 02:47 Reassessment: patient is sleeping, but easily awakened to voice. alert and oriented x al4 3. denies pain. 03:13 Reassessment: Cousin will be giving patient a ride home. patient is more alert and took al4 off all the vital signs equipment. patient ambulated out of room. Vital Signs: 06/24 23:44 BP 106 / 64; Pulse 55; Resp 16 S; Pulse Ox 99% on R/A; al4 23:45 BP 110 / 70; Pulse 61; Resp 16 S; Pulse Ox 100% on R/A; al4 06/25 00:30 BP 114 / 76; Pulse 65; Resp 16 S; Pulse Ox 100% on R/A; al4 01:15 BP 115 / 70; Pulse 57; Resp 16 S; Pulse Ox 99% on R/A; al4 02:17 BP 102 / 73; Pulse 57; Resp 16 S; Pulse Ox 100% on R/A; al4 02:45 BP 103 / 70; Pulse 52; Resp 16 S; Pulse Ox 100% ; al4 ED Course: 06/24 23:43 Patient arrived in ED. mw2 23:44 Nicholas Gee is Primary Nurse. al4 23:45 Triage completed. al4 23:45 Arm band placed on left wrist. al4 23:46 Bebeto Pabon NP is PHCP. pm1 23:46 Evan Ochoa MD is Attending Physician. pm1 06/25 00:26 CT Head Brain wo Cont In Process Unspecified. EDMS 00:42 Patient has correct armband on for positive identification. al4 00:42 Maintain EMS IV. Site clean \T\ dry. Gauge \T\ site: 20 RAC. al 4 02:16 CMP Sent. al4 02:16 CBC with Diff Sent. al4 02:54 Ricky Ugalde MD is Referral Physician. pm1 03:14 No provider procedures requiring assistance completed. IV discontinued, intact, al4 bleeding controlled, No redness/swelling at site. Pressure dressing applied. Administered Medications: No medications were administered Outcome: 02:54 Discharge ordered by MD. pm1 03:14 Discharged to home ambulatory, with family. al4 03:14 Condition: stable 03:14 Discharge instructions given to patient, family, Instructed on discharge instructions, follow up and referral plans. Demonstrated understanding of instructions, follow-up care. 03:15 Patient left the ED. al4 Signatures: Dispatcher [employer] EDMS Bebeto Pabon, DENISSE MANAGER SALT pm1 Bar Addison mw2 Nicholas Gee al4 Corrections: (The following items were deleted from the chart) 00:57 0404 23:45 General: Appears in no apparent distress. Behavior is post ictal. al4 al4 04 01:29 01:28 Reassessment: Patient is able to follow commands. Patient is drowsy but aroused al4 by name calling or a tap on the shoulder. al4 07:38 01:28 Reassessment: Patient is able to follow commands. Patient is drowsy but aroused al4 by name calling or a tap on the shoulder. Patients gf is at bedside. al4
--- NOTE | 2021-06-25 02:54 | EDPHYS ---
Physician Documentation [facility] Name: Sofie Jensen Age: 20 yrs Sex: Female : 2000 Arrival Date: 06/24/2021 Time: 23:43 Bed 14 Private MD: ED Physician Evan Ochoa HPI: 06/25 00:03 This 20 yrs old Female presents to ER via EMS with complaints of Seizure. pm1 00:03 The patient presents after having a possible seizure episode. Character of seizure(s): pm1 Loss of consciousness: it is not known if the patient experienced loss of consciousness, Motor activity: the motor activity is unknown. Seizure onset: just prior to arrival. Seizure Hx: Cause: stressful situations per patient, Seizure medications: none. Associated injury: The patient did not suffer any apparent associated injury. EMS care: none. Current symptoms: Currently, the patient is not experiencing any symptoms. The patient has experienced similar episodes in the past, several times. The patient has been recently seen at the [facility] Emergency Department, today, for similar complaints given keppra IV and discharged home with keppra. Patient has not followed up with neurology since the onset of her seizures. Historical: - PMHx: 06/24 23:45 Asthma; Seizure; al4 - Immunization history:: Adult Immunizations up to date, Client reports having NOT received the Covid vaccine. - Social history:: Smoking status: Patient denies any tobacco usage or history of. ROS: 06/25 00:03 Constitutional: Negative for fever, chills, and weight loss, Cardiovascular: Negative pm1 for chest pain, palpitations, and edema, Respiratory: Negative for shortness of breath, cough, wheezing, and pleuritic chest pain, Abdomen/GI: Negative for abdominal pain, nausea, vomiting, diarrhea, and constipation, MS/Extremity: Negative for injury and deformity, Skin: Negative for injury, rash, and discoloration. Neuro: Positive for seizure activity. All other systems are negative. Exam: 00:03 Constitutional: This is a well developed, well nourished patient who is awake, alert, pm1 and in no acute distress. Head/Face: Normocephalic, atraumatic. 00:03 Skin: Warm, dry with normal turgor. Normal color with no rashes, no lesions, and no evidence of cellulitis. MS/ Extremity: Pulses equal, no cyanosis. Neurovascular intact. Full, normal range of motion. 00:03 Eyes: Exam is negative for acute changes, Pupils: no acute changes, Extraocular movements: intact throughout, Conjunctiva: no acute changes. 00:03 ENT: Exam is negative for acute changes, Mouth: Lips: normal, moist, Oral mucosa: normal, pink and intact, moist. 00:03 Cardiovascular: Exam negative for acute changes, Rate: normal, Rhythm: regular, Pulses: no pulse deficits are appreciated, Heart sounds: normal. 00:03 Respiratory: Exam negative for acute changes, respiratory distress, shortness of breath, Breath sounds: are clear throughout. 00:03 Abdomen/GI: Exam negative for acute changes, Inspection: abdomen appears normal, Palpation: abdomen is soft and non-tender, in all quadrants. 00:03 Neuro: Orientation: is normal, Mentation: is normal, Motor: moves all fours, Sensation: no obvious gross deficits. Vital Signs: 06/24 23:44 BP 106 / 64; Pulse 55; Resp 16 S; Pulse Ox 99% on R/A; al4 23:45 BP 110 / 70; Pulse 61; Resp 16 S; Pulse Ox 100% on R/A; al4 06/25 00:30 BP 114 / 76; Pulse 65; Resp 16 S; Pulse Ox 100% on R/A; al4 01:15 BP 115 / 70; Pulse 57; Resp 16 S; Pulse Ox 99% on R/A; al4 02:17 BP 102 / 73; Pulse 57; Resp 16 S; Pulse Ox 100% on R/A; al4 02:45 BP 103 / 70; Pulse 52; Resp 16 S; Pulse Ox 100% ; al4 MDM: 06/24 23:49 Patient medically screened. [facility] 06/25 01:03 Data reviewed: vital signs. Data interpreted: Pulse oximetry: on room air is 100 %. pm1 Interpretation: normal. 01:03 ED course: Patient's family member reports possible seizure activity. Patient evaluated pm1 and no seizure activity noted. Patient opens eyes and responded quickly to sternal rubbing and she looks away and closes her eyes with the Bentley saline sign. 02:53 Counseling: I had a detailed discussion with the patient and/or guardian regarding: the pm1 historical points, exam findings, and any diagnostic results supporting the discharge/admit diagnosis, lab results, radiology results, the need for outpatient follow up, to return to the emergency department if symptoms worsen or persist or if there are any questions or concerns that arise at home. 06/24 23:54 Order name: CBC with Diff; Complete Time: 02:53 pm1 06/24 23:54 Order name: CMP; Complete Time: 02:43 pm1 06/24 23:54 Order name: CT Head Brain wo Cont pm1 06/24 23:54 Order name: EKG; Complete Time: 23:55 pm1 06/24 23:54 Order name: EKG - Nurse/Tech; Complete Time: 01:28 pm1 06/24 23:55 Order name: Glucose, Ancillary Testing; Complete Time: 00:23 EDMS Administered Medications: No medications were administered Disposition Summary: 06/25/21 02:54 Discharge Ordered Location: Home pm1 Problem: new pm1 Symptoms: have improved pm1 Condition: Stable pm1 Diagnosis - Other seizures pm1 Followup: pm1 - With: Emergency Department - When: As needed - Reason: Worsening of condition Followup: pm1 - With: - When: 2 - 3 days - Reason: Recheck today's complaints, Continuance of care, Re-evaluation by your physician Discharge Instructions: - Discharge Summary Sheet pm1 - Seizure, Adult pm1 Forms: - Medication Reconciliation Form pm1 - Thank You Letter pm1 - Antibiotic Education pm1 - Prescription Opioid Use pm1 Addendum: 06/27/2021 07:18 Co-signature as Attending Physician, Evan Ochoa MD I agree with the assessment and c cook plan of care. Signatures: Dispatcher [employer] EDEvan Sandra MD MD cha Marinas, Patrick, QUILLER HAND QUILLER HAND pm1 Nicholas Gee4
[2021-06-25 07:55] VITALS: BP 102/73; O2SAT 100
--- NOTE | 2021-06-25 08:29 | EKG ---
Test Date: 2021-06-25 Test Time: 01:23:18 Mortgage Specialist: CARLOS MEASUREMENT RESULTS: Intervals: Rate: 55 HI: 162 QRSD: 86 QT: 428 QTc: 409 [place]: P: 38 HI: 162 QRS: 78 T: 44 INTERPRETIVE STATEMENTS: Sinus bradycardia with sinus arrhythmia Otherwise normal ECG Compared to ECG 06/24/2021 15:11:08 No significant changes Electronically Signed On 06-25-21 08:27:50 CDT by Trent Capellan
--- NOTE | 2021-06-25 13:56 | RAD REPORT ---
EXAM DESCRIPTION: CT - Head Brain Wo Cont - 06/25/2021 4:36 am CLINICAL HISTORY: The patient is 20 years old and is Female; SEIZURE TECHNIQUE: Axial computed tomography images of the head/brain without intravenous contrast. Sagitt al and coronal reformatted images were created and reviewed. This CT exam was performed using one o r more of the following dose reduction techniques: automated exposure control, adjustment of the mA and/or kV according to patient size, and/or use of iterative reconstruction technique. COMPARISON: June 02, 2021. FINDINGS: Brain: Unremarkable. No hemorrhage. No significant white matter disease. No edema. Ventricles: Unremarkable. No ventriculomegaly. Bones/joints: Unremarkable. No acute fracture. Soft tissues: Unremarkable. Sinuses: Unremarkable as visualized. Mastoid air cells: Unremarkable as visualized. No mastoid effusion. IMPRESSION: No acute intracranial abnormality. Electronically signed by: Martín Kim MD 06/25/2021 12:36 AM CDT Due to temporary technical issues with the PACS/Fluency reporting system, reports are being signed by the in house radiologists without review as a courtesy to insure prompt reporting. The interpreting radiologist is fully responsible for the content of the report.
== END 2021-06-25 03:15 | disposition home or self-care (01) ==
LOC: ER 23:34
DX: G40.89 Other seizures (principal)
CPT/HCPCS: 36415; 70450; 80053; 82947; 85025; 93005; 99284

== ENCOUNTER 2021-06-26 09:54 | Emergency (ER) | payer OTHER ==
--- OUTSIDE RECORDS SUMMARY | 2021-06-26 10:00 | XMS REPORT | Continuity of Care Document ---
:2000 Author Organization [facility] t Address [address] [place] [address] Care Team Providers Name Role Phone PCP, [...] Number Effective Date Expiration Date Courtney JONES [id number] 2019 00:00:00 [place] [facility] [id number] 2017 HEALTH 00:00:00 Problems Condition Condition Condition [...] rs active active ity of problems problems [facility] Allergies, Adverse Reactions, Alerts Allergy Allergy Status Severity Reaction(s) Onset Inactive Treating Comm ents Source Name Type Date Date Clinician Bear Propensi Active Hives Univers And ty to [...] Quantity Comments Source Exposure to Not sure [facility] SARS-CoV-2 (event) [facility] Tobacco use and 2017-11-19 2017-11-19 Never used [facility] exposure 00:00:00 00:00:00 Medical [place] Sex Assigned At [birth year] [facility] 00:00:00 00:00:00 Medical Branch Smoking Status Start Date Stop Date Source Never smoker [facility] Medications Ordered Filled Start Stop Current Ordering Indication Dosage Frequency Signature Comments Components Source Medication Medication Date Date Medication? Clinician (SIG) Name Name Potassium Yes 40meq 40 mEq, Univ ers Bicarb-Citr 12-04 Oral, ity of ic Acid 14:00: DAILY, [place] (EFFER-K) 00 First dose Medi lilibeth effervescen on Thu [place] t tablet 40 12/04/20 at mEq 0900, Until Discontinu ed, Routine Potassium Yes 40meq 40 mEq, Univ ers Bicarb-Citr 9-14 Oral, ity of ic Acid 14:00: DAILY, [place] (EFFER-K) 00 First dose Medi lilibeth effervescen on Thu t tablet 40 12/04/20 at mEq 0900, Until Discontinu ed, Routine prazosin Yes 1mg 1 mg, Univers (MINIPRES) 9-14 Oral, QHS, ity of capsule 1 02:00: [place] 00 on [facility] 12/03/20 at [place] 2100, Until Discontinu ed, Routine prazosin Yes 1mg 1 mg, Univers (MINIPRES) 9-14 Oral, QHS, ity of capsule 1 02:00: [place] 00 on [facility] 12/03/20 at [place] 2100, Until Discontinu ed, Routine vitamin 2020- No [id number] 1000ug Take 1 U nivers B-12 1,000 9-14 10-15 tablet by ity of mcg tablet 00:00: 04:59 mouth [place] 00 :00 daily for Medical 30 days. [place] vitamin 2020- No [id number] 1000ug Take 1 U nivers B-12 1,000 -14 10-15 tablet by ity of mcg tablet 00:00: 04:59 mouth [place] 00 :00 daily for Medical 30 days. [place] gadoteridol 2020- No [id number] .2mL/kg 11.8 mL Univers (PROHANCE-1 12-03 (0.2 mL/kg i ty of 5 mL) 17:00: 17:00 ?59 kg), [place] injection 00 :00 Intravenou Medi lilibeth 11.8 mL s, ONCE, 1 Branch dose, On [facility] 12/03/20 at 1200, Routine gadoteridol 2020- No [id number] .2mL/kg 11.8 mL Univers (PROHANCE-1 12-03 (0.2 mL/kg i ty of 5 mL) 17:00: 17:00 ?59 kg), [place] injection 00 :00 Intravenou Medi lilibeth 11.8 mL s, ONCE, 1 Branch dose, On [facility] 12/03/20 at 1200, Routine vitamin Yes 1000ug 1,000 mcg, Un spring B-12 12-03 Oral, ity of (CYANOCOBAL 14:00: DAILY, [place] RAM) 00 First dose Medical tablet on Mon Branch 1,000 mcg 12/03/20 at 0900, Until Discontinu ed, Routine pantoprazol Yes 40mg 40 mg, [facility] ers e 12-03 Oral, ity [...] doses, Medical mEq/100 mL First dose Bra [facility] RTU IVPB 20 on Thu mEq 12/03/20 at 0800, Last dose on Thu12/03/20 at 1000, 100 mL potassium 2020- No 20meq 20 mEq, IV Univers chloride 20 12-03 Piggyback, i ty of mEq/100 mL 13:00: 16:59 Q2H, 2 [place] (KCL) 20 00 :00 doses, Medical mEq/100 mL First dose Bra [facility] RTU IVPB 20 on Thu mEq 12/03/20 at 0800, Last dose on Thu12/03/20 at 1000, 100 mL ciprofloxac 2020-2020- No [id number] 500mg Take 1 Univers in HCl 500 12-03 tablet by ity of mg tablet 00:00: 04:59 mouth [place] 00 :00 every 12 Medical (twelve) Branch hours for 7 days. ciprofloxac 2020- No [id number] 500mg Take 1 Univers in HCl 500 12-03 tablet by ity of mg tablet 00:00: 04:59 mouth [place] 00 :00 every 12 Medical (twelve) Branch hours for 7 days. enoxaparin Yes 40mg 40 mg, Unive rs (LOVENOX) 12-02 Subcutaneo ity of injection 22:00: us, DAILY, [place] 40 mg 00 First dose Medical on [facility] 12/02/20 at 1700, Until Discontinu ed, Routine enoxaparin Yes 40mg 40 mg, Unive rs (LOVENOX) 12-02 Subcutaneo ity of injection 22:00: us, DAILY, [place] 40 mg 00 First dose Medical on [facility] 12/02/20 at 1700, Until Discontinu ed, Routine gadoteridol 2020- No [id number] .2mL/kg 11.8 mL Univers (PROHANCE-1 12-02 (0.2 mL/kg i ty of 5 mL) 17:45: 17:45 ?59 kg), [place] injection 00 :00 Intravenou Medi lilibeth 11.8 mL s, ONCE, 1 Branch dose, On [place] 12/02/20 at 1245, Routine gadoteridol 2020- No [id number] .2mL/kg 11.8 mL Univers (PROHANCE-1 12-02 (0.2 mL/kg i ty of 5 mL) 17:45: 17:45 ?59 kg), [place] injection 00 :00 Intravenou Medi lilibeth 11.8 mL s, ONCE, 1 Branch dose, On [place] 12/02/20 at 1245, Routine cefTRIAXone Yes 1000mg 1,000 mg, Univers (ROCEPHIN) 12-02 IV ity of 1,000 mg in 16:30: Piggyback, [place] NaCl 0.9% 00 Q24H ABX, Medic al (NS) 50 mL First dose [facility] MINI-BAG on [place] 12/02/20 at 1130, Until Discontinu ed, Administer over 30 Minutes, 50 mL
Reas on for Anti-Infec tive: Documented Infection< br>Documen carole Infection Site: Urine
D uration of Therapy: 7 days cefTRIAXone 0 Yes 1000mg 1,000 mg, Univers (ROCEPHIN) 9-12 IV ity of 1,000 mg in 16:30: Piggyback, [place] NaCl 0.9% 00 Q24H ABX, Medic al (NS) 50 mL First dose [facility] MINI-BAG on [place] 12/02/20 at 1130, Until Discontinu ed, Administer over 30 Minutes, 50 mL
Reas on for Anti-Infec tive: Documented Infection< br>Documen carole Infection Site: Urine
D uration of Therapy: 7 days NaCl 0.9% 0 Yes 1000mL at 50 Unive rs (NS) IV 9-12 mL/hr, IV ity of infusion 15:30: Infusion, [place] 1,000 mL 00 CONTINUOUS Medic al , Starting Branch on [place] 12/02/20 at 1030, Until Discontinu ed, Routine NaCl 0.9% 0 Yes 1000mL at 50 Unive rs (NS) IV 9-12 mL/hr, IV ity of infusion 15:30: Infusion, [place] 1,000 mL 00 CONTINUOUS Medic al , Starting Branch on [place] 12/02/20 at 1030, Until Discontinu ed, Routine acetaminoph 0 Yes 650mg 650 mg, Un spring en 12 Oral, ity of (TYLENOL) 15:19: Q6HPRN, [place] tablet 650 42 Starting Medic al mg on [facility] 12/02/20 at 1019, Until Discontinu ed, Routine, Pain (scale 4-6) docusate 0 Yes 100mg 100 mg, Unive rs (COLACE) 912 Oral, ity of capsule 100 15:19: QDAILYPRN, [place] mg 42 Starting Medical on [facility] 12/02/20 at 1019, Until Discontinu ed, Routine, Constipati on acetaminoph 0 Yes 650mg 650 mg, Un spring en 9-12 Oral, ity of (TYLENOL) 15:19: Q6HPRN, [place] tablet 650 42 Starting Medic al mg on [facility] 12/02/20 at 1019, Until Discontinu ed, Routine, Pain (scale 4-6) docusate Yes 100mg 100 mg, Unive rs (COLACE) 12-02 Oral, ity of capsule 100 15:19: QDAILYPRN, [place] mg 42 Starting Medical on [facility] 12/02/20 at 1019, Until Discontinu ed, Routine, Constipati on midazolam 2020- No 1mg 1 mg, IV Uni vers (VERSED) 12-02 Push, ity of injection 1 11:15: 10:15 ONCE, 1 [place] mg 00 :00 dose, [facility] 12/02/20 at Branch 0615, STAT midazolam 2020-0 2020- No 1mg 1 mg, IV Uni vers (VERSED) 12-02 Push, ity of injection 1 11:15: 10:15 ONCE, 1 [place] mg 00 :00 dose, [facility] 12/02/20 at [place] 0615, STAT midazolam 2020-2020- No 1mg 1 mg, IV Uni vers (VERSED) 12-02 Push, ity of injection 1 10:45: 09:30 ONCE, 1 [place] mg 00 :00 dose, [facility] 12/02/20 at [place] 0545, STAT midazolam 2020-2020- No 1mg 1 mg, IV Uni vers (VERSED) 12-02 Push, ity of injection 1 10:45: 09:30 ONCE, 1 [place] mg 00 :00 dose, [facility] 12/02/20 at [place] 0545, STAT NaCl 0.9% Yes 1000mL at 125 Univ ers (NS) IV 9-12 mL/hr, IV ity of infusion 10:00: Infusion, [place] 1,000 mL 00 CONTINUOUS Medic al , Starting [facility] 12/02/20 at 0500, Until Discontinu ed, Routine NaCl 0.9% 0 Yes 1000mL at 125 Univ ers (NS) IV 9-12 mL/hr, IV ity of infusion 10:00: Infusion, [place] 1,000 mL 00 CONTINUOUS Medic al , Starting [facility] 12/02/20 at 0500, Until Discontinu ed, Routine ondansetron Yes 4mg 4 mg, Slow Univers (ZOFRAN 12-02 IV Push, ity of (PF)) 09:52: Q6HPRN, [place] injection 4 57 Starting Medi lilibeth mg [facility] 12/02/20 at 0452, Until Discontinu ed, Routine, Nausea and Vomiting (N/V) ondansetron 2020-0 Yes 4mg 4 mg, Slow Univers (ZOFRAN 12-02 IV Push, ity of (PF)) 09:52: Q6HPRN, [place] injection 4 57 Starting Medi lilibeth mg [facility] 12/02/20 at 0452, Until Discontinu ed, Routine, Nausea and Vomiting (N/V) acetaminoph 1-0 Yes 650mg 650 mg, Un spring en 12 Oral, ity of (TYLENOL) 09:52: Q6HPRN, [place] tablet 650 44 Starting Medic al mg [facility] 12/02/20 at 0452, Until Discontinu ed, Routine, Pain (scale 1-3), Temp > 38.5 C acetaminoph 2020-0 Yes 650mg 650 mg, Un spring en 12-02 Oral, ity of (TYLENOL) 09:52: Q6HPRN, [place] tablet 650 44 Starting Medic al mg [facility] 12/02/20 at 0452, Until Discontinu ed, Routine, Pain (scale 1-3), Temp > 38.5 C NaCl 0.9% 2020- No 1000mL at 999 Uni vers (NS) bolus 12-02 mL/hr, ity of infusion 09:00: 10:23 1,000 mL, [place] 1,000 mL 00 :[facility] dose, [place] 12/02/20 at 0400, STAT NaCl 0.9% 2020- No 1000mL at 999 Uni vers (NS) bolus 12-02 mL/hr, ity of infusion 09:00: 10:23 1,000 mL, [place] 1,000 mL 00 :00 IV Medical Piggyback, [place] ONCE, 1 dose, [place] 12/02/20 at 0400, STAT cefTRIAXone 2020-2020- No 1000mg 1,000 mg, Univers (ROCEPHIN) 12-02 IV ity of 1,000 mg in 08:45: 08:24 [place], [place] NaCl 0.9% 00 :00 ONCE, 1 Medical (NS) 50 mL dose, [place] Bran ch MINI-BAG 12/02/20 at 0345, Administer over 30 Minutes, 50 mL
R fabio for Anti-Infec tive: Documented Infection< br>Documen carole Infection Site: Urine
D uration of Therapy: 7 days cefTRIAXone 2020-2020- No 1000mg 1,000 mg, Univers (ROCEPHIN) 12-02 IV ity of 1,000 mg in 08:45: 08:24 Piggyback, [place] NaCl 0.9% 00 :00 ONCE, 1 Medical (NS) 50 mL dose, [place] Bran ch MINI-BAG 12/02/20 at 0345, Administer over 30 Minutes, 50 mL
R fabio for Anti-Infec tive: Documented Infection< br>Documen carole Infection Site: Urine
D uration of Therapy: 7 days midazolam 2020-2020- No 1mg 1 mg, IV Uni vers (VERSED) 12-02 Push, ity of injection 1 07:15: 06:42 ONCE, 1 [place] mg 00 :00 dose, [facility] 12/02/20 at Branch 0215, STAT midazolam 2020-2020- No 1mg 1 mg, IV Uni vers (VERSED) 12-02 Push, ity of injection 1 07:15: 06:42 ONCE, 1 [place] mg 00 :00 dose, [facility] 12/02/20 at [place] 0215, STAT NaCl 0.9% 2020- No 500mL at 999 Univ ers (NS) bolus 12-02 mL/hr, 500 it y of infusion 07:00: 07:12 mL, IV [place] 500 mL 00 :00 Piggyback, [facility] ONCE, 1 Branch dose, [place] 12/02/20 at 0200, STAT NaCl 0.9% 2020-2020- No 500mL at 999 Univ ers (NS) bolus 12-02 mL/hr, 500 it y of infusion 07:00: 07:12 mL, IV [place] 500 mL 00 :00 Piggyback, Medical ONCE, 1 Branch dose, [place] 12/02/20 at 0200, STAT cefTRIAXone 2020-0 2021- No 1000mg 1,000 mg, Univers (ROCEPHIN) 11-30 IV ity of 1,000 mg in :30: 07:03 [place], [place] NaCl 0.9% 00 :00 ONCE, 1 Medical (NS) 50 mL dose, Fri Bran ch MINI-BAG 11/30/20 at 0230, Administer over 30 Minutes, 50 mL
R fabio for Anti-Infec tive: Documented Infection< br>Documen carole Infection Site: Urine
D uration of Therapy: Other (see Comments) cefTRIAXone 2020- No 1000mg 1,000 mg, Univers (ROCEPHIN) 11-30 IV ity of 1,000 mg in :30: 07:03 [place], [place] NaCl 0.9% 00 :00 ONCE, 1 Medical (NS) 50 mL dose, Fri Bran ch MINI-BAG 11/30/20 at 0230, Administer over 30 Minutes, 50 mL
R fabio for Anti-Infec tive: Documented Infection< br>Documen carole Infection Site: Urine
D uration of Therapy: Other (see Comments) Nitrofurant Yes [id number] 100mg Take 1 Univers oin&Nit. 9-10 capsule by ity o f Macroc[place] 00:00: mouth 2 [place] (MACROBID) 00 (two) Medical 100 mg times Branch capsule daily. Nitrofurant Yes [id number] 100mg Take 1 Univers oin&Nit. 9-10 capsule by ity o f Macrocryst 00:00: mouth 2 [place] (MACROBID) 00 (two) Medical 100 mg times Branch capsule daily. Nitrofurant Yes [id number] 100mg Take 1 Univers oin&Nit. 9-10 capsule by ity o f Macrocryst 00:00: mouth 2 [place] (MACROBID) 00 (two) Medical 100 mg times Branch capsule daily. Nitrofurant Yes [id number] 100mg Take 1 Univers oin&Nit. 9-10 capsule by ity o f Macrocryst 00:00: mouth 2 [place] (MACROBID) 00 (two) Medical 100 mg times Branch capsule daily. Nitrofurant Yes [id number] 100mg Take 1 Univers oin&Nit. 9-10 capsule by ity o f Mac[place]ryst 00:00: mouth 2 [place] (MACROBID) 00 (two) Medical 100 mg times Branch capsule daily. Nitrofurant Yes [id number] 100mg Take 1 Univers oin&Nit. 9-10 capsule by ity o f [place] 00:00: mouth 2 [place] (MACROBID) 00 (two) Medical 100 mg times Branch capsule daily. Nitrofurant Yes [id number] 100mg Take 1 Univers oin&Nit. 9-10 capsule [...] 3-11 affected ity of cream 00:00: area(s) [place] 00 daily. Medical Branch hydrocortis 2015- Yes Apply to U nivers one 1 % 3-11 affected ity of cream 00:00: area(s) [place] 00 daily. Medical Branch hydrocortis 2015- Yes [...] 00 daily. Medical Branch crotamiton 2016-0 Yes [id number] After warm Univers (EURAX) 10 3-08 bath apply ity of % lotion 00:00: lotion to [place] 00 entire Medical body Branch excluding face and scalp. Repeat in 24 hours. cetirizine 2015- Yes [id number] 10mg Take 1 Tab Univers (ZYRTEC) 10 3-08 by mouth ity of mg tablet 00:00: at bedtime [place] 00 as needed Medical for Other Branch (itching). crotamiton 0 Yes [id number] After warm Univers (EURAX) 10 3-08 bath apply ity of % lotion 00:00: lotion to [place] 00 entire Medical body Branch excluding face and scalp. Repeat in 24 hours. cetirizine 2015-0 Yes [id number] 10mg Take 1 Tab Univers (ZYRTEC) 10 3-08 by mouth ity of mg tablet 00:00: at bedtime [place] 00 as needed Medical for Other Branch (itching). crotamiton 2015-0 Yes [id number] After warm Univers (EURAX) 10 3-08 bath apply ity of % lotion 00:00: lotion to [place] 00 entire Medical body Branch excluding face and scalp. Repeat in 24 hours. cetirizine 2015-0 Yes [id number] 10mg Take 1 Tab Univers (ZYRTEC) 10 3-08 by mouth ity of mg tablet 00:00: at bedtime [place] 00 as needed Medical for Other Branch (itching). crotamiton 2015-0 Yes [id number] After warm Univers (EURAX) 10 3-08 bath apply ity of % lotion 00:00: lotion to [place] 00 entire Medical body Branch excluding face and scalp. Repeat in 24 hours. cetirizine Yes [id number] 10mg Take 1 Tab Univers (ZYRTEC) 10 3-08 by mouth ity of mg tablet 00:00: at bedtime [place] 00 as needed Medical for Other Branch (itching). crotamiton Yes [id number] After warm Univers (EURAX) 10 3-08 bath apply ity of % lotion 00:00: lotion to [place] 00 entire Medical body Branch excluding face and scalp. Repeat in 24 hours. cetirizine Yes [id number] 10mg Take 1 Tab Univers (ZYRTEC) 10 3-08 by mouth ity of mg tablet 00:00: at bedtime [place] 00 as needed Medical for Other Branch (itching). crotamiton Yes [id number] After warm Univers (EURAX) 10 3-08 bath apply ity of % lotion 00:00: lotion to [place] 00 entire Medical body Branch excluding face and scalp. Repeat in 24 hours. cetirizine Yes [id number] 10mg Take 1 Tab Univers (ZYRTEC) 10 3-08 by mouth ity of mg tablet 00:00: at bedtime [place] 00 as needed Medical for Other Branch (itching). crotamiton Yes [id number] After warm Univers (EURAX) 10 3-08 bath apply ity of % lotion 00:00: lotion to [place] 00 entire Medical body Branch excluding face and scalp. Repeat in 24 hours. cetirizine Yes [id number] 10mg Take 1 Tab Univers (ZYRTEC) 10 3-08 by mouth ity of mg tablet 00:00: at bedtime [place] 00 as needed Medical for Other Branch (itching). crotamiton Yes [id number] After warm Univers (EURAX) 10 3-08 bath apply ity of % lotion 00:00: lotion to [place] 00 entire Medical body Branch excluding face and scalp. Repeat in 24 hours. cetirizine Yes [id number] 10mg Take 1 Tab Univers (ZYRTEC) 10 3-08 by mouth ity of mg tablet 00:00: at bedtime [place] 00 as needed Medical for Other Branch (itching). crotamiton Yes [id number] After warm Univers (EURAX) 10 3-08 bath apply ity of % lotion 00:00: lotion to [place] 00 entire Medical body Branch excluding face and scalp. Repeat in 24 hours. cetirizine Yes [id number] 10mg Take 1 Tab Univers (ZYRTEC) 10 3-08 by mouth ity of mg tablet 00:00: at bedtime [place] 00 as needed Medical for Other Branch (itching). crotamiton Yes [id number] After warm Univers (EURAX) 10 3-08 bath apply ity of % lotion 00:00: lotion to [place] 00 entire Medical body Branch excluding face and scalp. Repeat in 24 hours. cetirizine Yes [id number] 10mg Take 1 Tab Univers (ZYRTEC) 10 [...] Filled Immunization Date Status Comments [facility] e Immunization Name Name HPV9 2015-05-17 Completed University of 00:00:00 [facility] HPV9 2015-05-17 Completed University of 00:00:00 [facility] HPV9 2015-05-17 Completed University of 00:00:00 [facility] HPV9 2015-05-17 Completed University of 00:00:00 [facility] HPV9 2015-05-17 Completed University of 00:00:00 [facility] HPV9 2015-05-17 Completed University of 00:00:00 [facility] HPV9 2015-05-17 Completed University of 00:00:00 [facility] HPV9 2015-05-17 Completed University of 00:00:00 [facility] HPV9 2015-05-17 Completed University of 00:00:00 [facility] HPV9 2015-05-17 Completed University of 00:00:00 [facility] Varicella 2015-01-16 Completed University of (varivax)(chicken [...] y of Vaccine Quad IM 3+ 00:00:00 [facility] Influenza Virus 2014-12-27 Completed Universit y of Vaccine Quad IM 3+ 00:00:00 [facility] Influenza Virus 2014-12-27 Completed Universit y of Vaccine Quad IM 3+ 00:00:00 [facility] Influenza Virus 2014-12-27 Completed Universit y of Vaccine Quad IM 3+ 00:00:00 [facility] Influenza Virus 2014-12-27 Completed Universit y of Vaccine Quad IM 3+ 00:00:00 [facility] Influenza Virus 2014-12-27 Completed Universit y of Vaccine Quad IM 3+ 00:00:00 [facility] Influenza Virus 2014-12-27 Completed Universit y of Vaccine Quad IM 3+ 00:00:00 [facility] Influenza Virus 2014-12-27 Completed Universit y of Vaccine Quad IM 3+ 00:00:00 [facility] Influenza Virus 2014-12-27 Completed Universit y of Vaccine Quad IM 3+ 00:00:00 [facility] Influenza Virus 2014-12-27 Completed Universit y of Vaccine Quad IM 3+ 00:00:00 [facility] Vital Signs Vital Name Observation Time Observation Value Comments Source Systolic blood 2020-12-04 12:43:00 118 mm[Hg] Univer sity of [facility] Diastolic blood 2020-12-04 12:43:00 65 mm[Hg] Unive rsity of [facility] Heart rate 2020-12-04 12:43:00 69 /min [facility] Body temperature 2020-12-04 12:43:00 36.5 Latoya [facility] rate 2020-12-04 12:43:00 15 /min [facility] Oxygen saturation in 2020-12-04 12:43:00 97 /min [facility] Arterial blood by [facility] Pulse oximetry [place] Body height 2020-12-02 23:01:00 162.6 cm [facility] Body weight 2020-12-02 23:01:00 58.968 kg [facility] BMI 2020-12-02 23:01:00 22.31 kg/m2 [facility] Body mass index 2020-12-02 23:01:00 58.99 % Unive rsity of (BMI) [Percentile] [facility] ica Per age and sex Branch Systolic blood 2020-12-02 11:00:00 104 mm[Hg] Univer sity of [facility] Diastolic blood 2020-12-02 11:00:00 71 mm[Hg] Unive rsity of pressure [facility] Heart rate 2020-12-02 11:00:00 74 /min [facility] Respiratory rate 2020-12-02 11:00:00 18 /min Univ ersity of [place] [facility] Oxygen saturation in 2020-12-02 11:00:00 98 /min University of Arterial blood by [facility] Pulse oximetry Branch Body temperature 2020-12-02 05:55:00 36.44 Latoya Univ ersity [facility] [place] [facility] Body height 2020-12-02 05:55:00 162.6 cm Universi [facility] [place] [facility] Body weight 2020-12-02 05:55:00 58.968 kg Universi ty [facility] [place] [facility] BMI 2020-12-02 05:55:00 22.31 kg/m2 [facility]i [facility] [place] [facility] Systolic blood 2020-11-30 08:00:00 100 mm[Hg] Univer sity of pressure [place] [facility] Diastolic blood 2020-11-30 08:00:00 66 mm[Hg] Unive rsity of pressure [place] [facility] Heart rate 2020-11-30 08:00:00 55 /min [facility]i [facility] [place] [facility] Respiratory rate 2020-11-30 08:00:00 14 /min Univ ersity [facility] [place] [facility] Oxygen saturation in 2020-11-30 08:00:00 100 /min University of Arterial blood by [facility] Pulse oximetry Branch Body height 2020-11-30 05:22:00 162.6 cm [facility] [place] [facility] Body weight 2020-11-30 05:22:00 58.968 kg [facility]i [facility] [place] [facility] BMI 2020-11-30 05:22:00 22.31 kg/m2 [facility] [place] [facility] Body temperature 2020-11-30 05:10:00 36.44 Latoya Univ ers[facility] [place] [facility] Body temperature 2019-05-29 05:43:00 36.61 Latoya Univ ers[facility] [place] [facility] Systolic blood 2019-05-29 04:50:00 118 mm[Hg] Univer sity of pressure [place] [facility] Diastolic blood 2019-05-29 04:50:00 86 mm[Hg] Unive rsity of pressure [place] [facility] Heart rate 2019-05-29 04:50:00 61 /min [facility]i [facility] [place] [facility] Respiratory rate 2019-05-29 04:50:00 18 /min Univ ers[facility] [place] [facility] Oxygen saturation in 2019-05-29 04:50:00 99 /min [place] Arterial blood by [facility] Pulse oximetry Branch Body weight 2019-05-29 02:56:37 70.308 kg [facility] Body temperature 2019-05-29 05:43:00 36.61 Latoya [facility] Systolic blood 2019-05-29 04:50:00 118 mm[Hg] Univer sity of pressure [facility] Diastolic blood 2019-05-29 04:50:00 86 mm[Hg] Unive rsity of pressure [facility] Heart rate 2019-05-29 04:50:00 61 /min [facility] Respiratory rate 2019-05-29 04:50:00 18 /min [facility] Oxygen saturation in 2019-05-29 04:50:00 99 /min [facility] Arterial blood by [facility] Pulse oximetry [place] Body weight 2019-05-29 02:56:37 70.308 kg [facility] Procedures Procedure Date / Time Performing Source Performed Clinician MR BRAIN W WO CONTRAST [facility]-03 [facility] 16:[facility] GALV ONLY - SYPHILIS IGG/IGM 2020-12-03 Jose Martin [facility] 09:57:00 [facility] ELECTROENCEPHALOGRAM 2020-12-03 [facility] MR LUMBAR SPINE W WO CONTRAST 2020-12-02 Marquez Philippe [facility] 17:43:[address] [place] [address] LUMBAR SPINE WO CONTRAST 2020-12-02 Marquez Philippe [facility] 16:47:15 Medical Branch PHOSPHORUS 2020-12-02 Jose Martin [facility] [place] 16:10:00 Medical Branch CREATINE KINASE 2020-[facility] [place]00 [facility] Branch MAGNESIUM 2020-12-02 Jose [facility] 16:[facility] VITAMIN B12, LEVEL 2020-12-02 Jose Martin [facility] 16:10:00 Medical Branch FOLATE 2020-12-02 [facility] [place] [facility] BASIC METABOLIC PANEL (NA, K, 2020-12-02 Marquez Philippe [facility] CL, CO2, GLUCOSE, BUN, 16:10:00 Medical B ranch CREATININE, CA) CBC WITH DIFF 2020-12-02 Jose Martin [facility] [place] 16:10:00 [facility] HIV 1/2 AG-AB WITH REFLEX 2020-12-02 Marquez Philippe [facility] 16:10:[address] ABDOMEN PELVIS WO CONTRAST 2020-12-02 Jermain Ghosh [facility] 08:43:26 [facility] CREATINE KINASE 2020-12-02 Sj [facility] x[place] 07:13:00 [facility] COMP. METABOLIC PANEL (87442) 2020-12-02 Jermain Ghosh [facility] 07:13:00 [facility] THYROID STIMULATING HORMONE 2020-12-02 Jose Martin [facility] 07:13:00 [facility] POCT TEST 2020-12-02 Sj [facility] [place] 06:36:00 [facility] COVID-19 (ID NOW RAPID 2020-12-02 Sj [facility] TESTING) 06:35:00 [facility] URINE DRUG (IMMUNOASSAY) - 2020-12-02 Sj [facility] COMPREHENSIVE DRUG SCREEN W/O 06:32:00 Az dical Branch REFLEX URINALYSIS 2020-12-02 Sj [facility] x[place] 06:31:00 [facility] CBC WITH DIFF 2020-12-02 Sj [facility] x[place] 06:15:00 [facility] LACTIC ACID WHOLE BLOOD 2020-12-02 Jermain Ghosh [facility] 06:14:00 [facility] NOTICE OF PRIVACY PRACTICES 2020-12-02 Doctor Unassigned, [facility] 05:51:23 [facility] CONSENT/REFUSAL FOR DIAGNOSIS 2020-12-02 Doctor Unassigned, [facility] AND TREATMENT 05:51:[address] [facility] [address] [place] [address] HEAD WO CONTRAST 2020-11-30 Chauncey Smith [facility] 06:48:07 [facility] POCT GLUCOSE(AGE >30DAYS) 2020-11-30 Chauncey Smith [facility] 05:31:00 Medical Branch AC PANEL 20 + LACTIC ACID 2020-11-30 Chauncey Smith [facility] 05:31:00 Medical Branch POCT GLUCOSE (AUTOMATED) 2020-11-30 Chauncey Smith [facility] 05:30:00 Medical Branch POCT TEST 2020-11-30 Chauncey Smith [facility] 05:26:00 [facility] URINE DRUG (IMMUNOASSAY) - 2020-11-30 Chauncey Smith [facility] COMPREHENSIVE DRUG SCREEN 05:25:00 Medica l [place] URINALYSIS 2020-11-30 Chauncey Smith [facility] ex 05:25:00 Medical Branch COVID-19 (ID NOW RAPID 2020-11-30 Chauncey Smith [facility] TESTING) 05:25:00 Medical Branch MAGNESIUM 2020-11-30 Chauncey Smith [facility] ex 05:16:00 Medical Branch COMP. METABOLIC PANEL (97893) 2020-11-30 Chauncey Smith [facility] 05:16:00 Medical Branch CBC WITH DIFF 2020-11-30 Chauncey Smith [facility] 05:16:00 Medical Branch CREATINE KINASE 2020-11-30 Chauncey Smith [facility] 05:15:00 [facility] NOTICE OF PRIVACY PRACTICES 2020-11-30 Doctor Unassigned, [facility] 05:01:[address] [facility] [address] HEAD WO CONTRAST 2019-05-29 Alec Rivera [facility] 04:16:04 Medical Branch XR CERVICAL SPINE 3 VW 2019-05-29 Alec Rivera [facility] 04:15:52 Medical [place] NOTICE OF PRIVACY PRACTICES 2019-05-29 Doctor Unassigned, [facility] 03:47:53 [facility] CONSENT/REFUSAL FOR DIAGNOSIS 2019-05-29 Doctor Unassigned, [facility] AND T[facility]ATMENT 03:47:41 [facility] Encounters Start End Encounter Admission Attending Care Care Encounter Source Date/Time Date/Time Type Type Clinicians Facility Department ID 2021-01-21 Emergency X [facility] [id number] Univers 22:04:01 ity of [facility] 2021-01-21 Emergency [facility] [id number] Univers 22:03:07 ity of [facility] 2021-01-21 Emergency [facility] [id number] Univers 21:40:40 ity of [facility] 2020 2020 Outpatient BRADY GOTTLIEB [facility] [id number] Univers 15:00:00 15:00:00 SARAHBRADY [id number] ity of [facility] 2020 2020 Outpatient BRADY GOTTLIEB [facility] [id number] Univers 15:00:00 15:00:00 SARAHBRADY [place] ity [facility] 2020-12-02 2020-12-04 Emergency [place] [id number] Univers 09:18:00 10:50:00 Lazaro Mckeon 350.1.13.10 i ty [facility] 4.2.7.2.686 Tramaine [phone] [place] [id number] Branch 2020-12-02 2020-12-02 Emergency AlvarezJanine mcgrath [facility] 1.2.840 [id number] Univers 00:47:00 09:12:00 Jermain Ghosh 350.1.13.10 ity Nicholas Carrion 4.2.7.2.686 [facility] [phone] [place] [address] Branch 2020-12-02 2020-12-02 Outpatient X SJ [facility] [id number] Univers 00:47:00 09:12:00 JERMAIN ity of [facility] 2020-11-30 2020-11-30 Emergency Luis [facility] [id number] Univers 00:08:00 04:02:00 Chauncey Farrell 350.1.13.10 ity Shonda 4.2.7.2.686 [facility] [id number] [place] 659224 Branch 2020-11-30 2020-11-30 Orders Doctor FREGOSO [id number] Univers 00:00:00 00:00:00 Only Unassigned, JOSE [id number] ity of [facility] 4.2.7.2.686 Tramaine [id number] [facility] 009 Branch 2019-06-15 2019-06-15 Outpatient R [facility] [id number] Univers 10:00:00 10:00:00 [id number] ity of [facility] 2019-06-15 2019-06-15 Outpatient R [facility] [id number] Univers 10:00:00 10:00:00 ity of [facility] 2019-06-15 2019-06-15 Outpatient R [facility] [id number] Univers 10:00:00 10:00:00 ity of [facility] 2019-06-15 2019-06-15 Telephone de [facility] [id number] Univers 00:00:00 00:00:00 Marcos Lerma [id number] ity of [facility] 4[place].7.2.686 [place] [facility] [phone] [facility] [address] [place] 2019-06-15 2019-06-15 Telephone de [facility] [id number] 00:00:00 00:00:00 Marcos Lerma 350.1.13.10 [facility] 4.2.7.2.686 Clinic [phone] [facility] 2019-06-14 2019-06-14 Outpatient R [facility] [id number] Univers 14:40:00 14:40:00 [id number] ity of [facility] 2019-06-14 2019-06-14 Outpatient R [facility] [id number] Univers 14:40:00 14:40:00 ity of [facility] 2019-05-28 2019-05-28 [place] [id number] Univers 20:59:13 23:56:00 Alec Farrell 350.1.13.10 i ty of [place] 4.2.7.2.686 [facility] [phone] [facility] 084 Branch 2019-05-28 2019-05-28 Emergency X NICOLE [facility] ERT [id number] Univers 20:59:13 23:56:00 ALEC ity of [facility] 2019-05-28 2019-05-28 Emergency [place], [place] [id number] 20:59:13 23:56:00 Alec Farrell 350.1.13.10 [place] 4.2.7.2.686 [place] [id number] 084 2019-05-28 2019-05-28 Orders Doctor ILDEFONSO [id number] Univers 00:00:00 00:00:00 Only Unassigned, JOSE 350.1.13.10 ity of [place] [facility] 4.2.7.2.686 [facility] [id number] [address] 2019-05-28 2019-05-28 Orders Doctor FREGOSO 1.2.840.114 [id number] 00:00:00 00:00:00 Only Unassigned, JOSE 350.1.13.10 [place] [facility] 4.2.7.2.686 [id number] Results Test Description Test Time Test Comments Results Result Comments Source GAL[facility] ONLY - SYPHILIS IGG/IGM 2020-12-03 15:29:02 Test Item Value Reference Range Interpretation Comme nts Syphilis IgG/IgM (test code = Non-reactive Non-reactive 25463-1) VIRIDIANA (test code = VIRIDIANA) Non-reactive - No serologic evidence of T. pallidum infection. Cannot exclude incubating or early syphilis. Submit a second specimen in 2-4 weeks if syphilis is clinically suspected. Equivocal - Further testing to follow. Reactive - Further testing to follow. Lab Interpretation (test code = Normal 12415-4) [facility] [id number] 15:29:02 Test Item Value Reference Range Interpretation Comments Syphilis IgG/IgM (test Non-reactive Non-reactive code = 64704-6) VIRIDIANA (test code = VIRIDIANA) Non-reactive - No serologic evidence of T. pallidum infection. Cannot exclude incubating or early syphilis. Submit a second specimen in 2-4 weeks if syphilis is clinically suspected. Equivocal - Further testing to follow. Reactive - Further testing to follow. Lab Interpretation (test Normal code = 73048-4) [facility], [id number] 23:31:33 Test Item Value Reference Range Interpretation Comments VIT B12 (test code = 367 pg/mL 240-930 2502793410) VIRIDIANA (test code = VIRIDIANA) Biotin has been reported to cause a positive bias, interpret results relative to patient's use of biotin. Lab Interpretation (test Normal code = 94252-1) [facility] B12, [id number] 23:31:33 Test Item Value Reference Range Interpretation Comments VIT B12 (test code = 367 pg/mL 240-930 5698643839) VIRIDIANA (test code = VIRIDIANA) Biotin has been reported to cause a positive bias, interpret results relative to patient's use of biotin. Lab Interpretation (test Normal code = 55484-9) [facility]-AB WITH [id number] 22:52:15 Test Item Value Reference Range Interpretation Comments HIV Negative Negative Semi-quantitative (test code = 16346-4) VIRIDIANA (test code = Non-reactive for HIV-1 VIRIDIANA) antigen and HIV-1/HIV-2 antibodies. ?No laboratory evidence of HIV infection. ?Repeat in 2-4 weeks if acute HIV infection is suspected. [facility]-AB WITH [id number] 22:52:15 Test Item Value Reference Range Interpretation Comments HIV Negative Negative Semi-quantitative (test code = 85936-1) VIRIDIANA (test code = Non-reactive for HIV-1 VIRIDIANA) antigen and HIV-1/HIV-2 antibodies. ?No laboratory evidence of HIV infection. ?Repeat in 2-4 weeks if acute HIV infection is suspected. [facility] 21:55:01 Test Item Value Reference Range Interpretation Comments FOLATE SER (test code = 10.1 ng/mL 3.0-20.0 8781211753) Lab Interpretation (test code = Normal 17682-1) [facility] 21:55:01 Test Item Value Reference Range Interpretation Comments FOLATE SER (test code = 10.1 ng/mL 3.0-20.0 7959382383) Lab Interpretation (test code = Normal 68700-4) [facility] Center[facility] [id number] 20:12:25 Test Item Value Reference Range Interpretation Comments MAGNESIUM (test code = 4520599813) 1.6 mg/dL 1.7-2.4 L Lab Interpretation (test code = Abnormal 58784-5) [facility] [id number] 20:12:25 Test Item Value Reference Range Interpretation Comments MAGNESIUM (test code = 4781886280) 1.6 mg/dL 1.7-2.4 L Lab Interpretation (test code = Abnormal 27026-6) [facility] (Na, K, Cl, CO2, Glucose, BUN, Creatinine, Ca)2020-12-02 20:12:19 Test Item Value Reference Range Interpretation Comments NA (test code = 144 mmol/L 135-145 2215900528) K (test code = 3.3 mmol/L 3.5-5.0 L 8043709776) CL (test code = 114 mmol/L 98-108 H 1995468039) CO2 TOTAL (test code = 21 mmol/L 23-31 L 5953747555) AGAP (test code = 2-16 8112879791) BUN (test code = 4 mg/dL 7-23 L 3969134778) GLUCOSE (test code = 71 mg/dL 70-110 4410865332) CREATININE (test code = 0.57 mg/dL 0.50-1.04 4244335329) CALCIUM (test code = 7.8 mg/dL 8.6-10.6 L 0508763899) eGFR (test code = mL/min/1.73m2 6025143309) VIRIDIANA (test code = VIRIDIANA) Association of [...] tests). Lab Interpretation Abnormal (test code = 02334-3) [facility] Metabolic Panel (Na, K, Cl, CO2, Glucose, BUN, Creatinine, Ca)2020-12-02 20:12:19 Test Item Value Reference Range Interpretation Comments NA (test code = 144 mmol/L 135-145 7729303748) K (test code = 3.3 mmol/L 3.5-5.0 L 3437059215) CL (test code = 114 mmol/L 98-108 H 4239709245) CO2 TOTAL (test code = 21 mmol/L 23-31 L 9082817911) AGAP (test code = 2-16 7736165922) BUN (test code = 4 mg/dL 7-23 L 1011947683) GLUCOSE (test code = 71 mg/dL 70-110 9964181617) CREATININE (test code = 0.57 mg/dL 0.50-1.04 5766735990) CALCIUM (test code = 7.8 mg/dL 8.6-10.6 L 2073715881) eGFR (test code = mL/min/1.73m2 1749832216) VIRIDIANA (test code = VIRIDIANA) Association of [...] tests). Lab Interpretation Abnormal (test code = 60508-1) [facility] [id number] 20:10:53 Test Item Value Reference Range Interpretation Comments PHOSPHORUS (test code = 8751612101) 3.7 mg/dL 2.5-5.0 Lab Interpretation (test code = Normal 59130-4) [facility] [id number] 20:10:53 Test Item Value Reference Range Interpretation Comments PHOSPHORUS (test code = 2256153037) 3.7 mg/dL 2.5-5.0 Lab Interpretation (test code = Normal 24379-4) [facility] (CK)2020-12-02 20:10:47 Test Item Value Reference Range Interpretation Comments CK (test code = 4876049846) 59 U/L 33-194 Lab Interpretation (test code = Normal 43804-0) [facility] Kin[facility] (CK)2020-12-02 20:10:47 Test Item Value Reference Range Interpretation Comments CK (test code = 3800417232) 59 U/L 33-194 Lab Interpretation (test code = Normal 45606-7) [facility] with [id number] 20:10:42 Test Item Value Reference Range Interpretation Comments WBC (test code = See_Comment [Automated 5190-2) message] The sy stem which generated this [...] RDW-SD (test code = 41.4 fL 38.5-49.0 66933-5) RDW-CV (test code = 13.2 % 11.5-14.0 788-0) PLT (test code = See_Comment L [Automated 777-3) message] The sy stem which generated this result transmitted reference range : 135 - 361 10*3/ ?L. The reference r lorene was not used to interpret this result as normal/abnormal . MPV (test code = 13.3 fL 9.4-13.3 19264-4) NRBC/100 WBC (test See_Comment [Automat ed code = 9867852635) message] The system which generated this result transmitted reference range : 0.0 - 10.0 /100 WBCs. The refer ence range was not u sed to interpret th is result as normal/abnormal . NRBC x10^3 (test code <0.01 See_Comment [Auto mated = 3324893644) message] The s ystem which generated this result transmitted reference range : 10*3/?L. The reference range was not used to interpret this result as normal/abnormal . GRAN MAT (NEUT) % 48.7 % (test code = 770-8) IMM GRAN % (test code 0.40 % = 6918448539) LYMPH % (test code = 39.4 % 736-9) MONO % (test code = 8.9 % 5905-5) EOS % (test code = 2.2 % 713-8) BASO % (test code = 0.4 % 706-2) GRAN MAT x10^3(ANC) 2.67 10*3/uL 1.50-10.30 (test code = 9367275710) IMM GRAN x10^3 (test <0.03 0.00-0.06 code = 1346786494) LYMPH x10^3 (test code 2.16 10*3/uL 0.70-7.40 = 731-0) MONO x10^3 (test code 0.49 10*3/uL 0.00-0.50 = 742-7) EOS x10^3 (test code = 0.12 10*3/uL 0.00-0.40 711-2) BASO x10^3 (test code <0.03 0.00-0.10 = 704-7) Lab Interpretation Abnormal (test code = 45676-2) [facility] with [id number] 20:10:42 Test Item Value Reference Range Interpretation Comments WBC (test code = See_Comment [Automated 6690-2) message] The sy stem which generated this result transmitted reference range : 4.50 - 13.50 10*3/?L. The reference range was not used to interpret this result as normal/abnormal . RBC (test code = See_Comment [Automated 099-8) message] The sy stem which generated this [...] RDW-SD (test code = 41.4 fL 38.5-49.0 91905-6) RDW-CV (test code = 13.2 % 11.5-14.0 788-0) PLT (test code = See_Comment L [Automated 777-3) message] The sy stem which generated this result transmitted reference range : 135 - 361 10*3/ ?L. The reference r lorene was not used to interpret this result as normal/abnormal . MPV (test code = 13.3 fL 9.4-13.3 56094-9) NRBC/100 WBC (test See_Comment [Automat ed code = 7572841280) message] The system which generated this result transmitted reference range : 0.0 - 10.0 /100 WBCs. The refer ence range was not u sed to interpret th is result as normal/abnormal . NRBC x10^3 (test code <0.01 See_Comment [Auto mated = 9566796859) message] The s ystem which generated this result transmitted reference range : 10*3/?L. The reference range was not used to interpret this result as normal/abnormal . GRAN MAT (NEUT) % 48.7 % (test code = 770-8) IMM GRAN % (test code 0.40 % = 1252282571) LYMPH % (test code = 39.4 % 736-9) MONO % (test code = 8.9 % 5905-5) EOS % (test code = 2.2 % 713-8) BASO % (test code = 0.4 % 706-2) GRAN MAT x10^3(ANC) 2.67 10*3/uL 1.50-10.30 (test code = 1772975075) IMM GRAN x10^3 (test <0.03 0.00-0.06 code = 7822706056) LYMPH x10^3 (test code 2.16 10*3/uL 0.70-7.40 = 731-0) MONO x10^3 (test code 0.49 10*3/uL 0.00-0.50 = 742-7) EOS x10^3 (test code = 0.12 10*3/uL 0.00-0.40 711-2) BASO x10^3 (test code <0.03 0.00-0.10 = 704-7) Lab Interpretation Abnormal (test code = 05489-3) [facility] [id number] 16:37:32 Test Item Value Reference Range Interpretation Comments TSH (test code = See_Comment Biotin has been 0591341157) reported to cau se a negative bias, interpret resul ts relative to pat ient's use of biotin. [Automated mess age] The system [employer] generated this result transmitted ref erence range: 0.45 - 4 .70 mIU/L. The refe rence range was not u sed to interpret this result as normal/abnor mal. Lab Interpretation (test Normal code = 35380-8) [facility] [id number] 16:37:32 Test Item Value Reference Range Interpretation Comments TSH (test code = See_Comment Biotin has been 9169020641) reported to cau se a negative bias, interpret resul ts relative to pat ient's use of biotin. [Automated mess age] The system [employer] generated this result transmitted ref erence range: 0.45 - 4 .70 mIU/L. The refe rence range was not u sed to interpret this result as normal/abnor mal. Lab Interpretation (test Normal code = 99014-4) [facility] (IMMUNOASSAY) - COMPREHENSIVE DRUG SCREEN W/O [id number] 07:41:34 Test Item Value Reference Range Interpretation Comments AMPHET (test code = Negative Negative 7763481571) FABIO U (test code = Negative Negative 2114555781) BENZO U (test code = Negative Negative 9853516410) Cocaine Metabolite (test Negative Negative code = 4844737775) METHADONE (test code = Negative Negative 0688687742) OPIATES (test code = Negative Negative 0454194014) PCP (test code = Negative Negative 1491426900) THC (test code = Presumptive Positive Negative A 0782366727) VIRIDIANA (test code = VIRIDIANA) Urine Drug [...] testing). Lab Interpretation (test Abnormal code = 65955-0) [facility]IM[facility] - COMPREHENSIVE DRUG SCREEN W/O [id number] 07:41:34 Test Item Value Reference Range Interpretation Comments AMPHET (test code = Negative Negative 1903059143) FABIO U (test code = Negative Negative 5611028048) BENZO U (test code = Negative Negative 1686944714) Cocaine Metabolite (test Negative Negative code = 2104117774) METHADONE (test code = Negative Negative 2836587989) OPIATES (test code = Negative Negative 1672605195) PCP (test code = Negative Negative 4530281999) THC (test code = Presumptive Positive Negative A 3124618152) VIRIDIANA (test code = VIRIDIANA) Urine Drug [...] testing). Lab Interpretation (test Abnormal code = 48330-1) [facility]OLIC PANEL (48759)2020-12-02 07:38:37 Test Item Value Reference Range Interpretation Comments NA (test code = 138 mmol/L 135-145 3105496495) K (test code = 3.8 mmol/L 3.5-5.0 7843063024) CL (test code = 108 mmol/L 98-108 7290617316) CO2 TOTAL (test code = 23 mmol/L 23-31 8402753710) AGAP (test code = 2-16 9267214060) BUN (test code = 5 mg/dL 7-23 L 9198601390) GLUCOSE (test code = 93 mg/dL 70-110 3339722802) CREATININE (test code = 0.61 mg/dL 0.50-1.04 2387131794) TOTAL BILI (test code = 0.7 mg/dL 0.1-1.7 3322168489) CALCIUM (test code = 8.6 mg/dL 8.6-10.6 0545609387) T PROTEIN (test code = 6.5 g/dL 6.3-8.2 4500818815) ALBUMIN (test code = 3.9 g/dL 3.5-5.0 9247415755) ALK PHOS (test code = 56 U/L 34-122 0561048552) ALTv (test code = 15 U/L 5-35 2-6) AST(SGOT) (test code = 28 U/L 13-40 3769572245) eGFR (test code = mL/min/1.73m2 9760657732) VIRIDIANA (test code = VIRIDIANA) Association of [...] tests). Lab Interpretation Abnormal (test code = 18852-5) [facility]. METABOLIC PANEL (79780)2020-12-02 07:38:37 Test Item Value Reference Range Interpretation Comments NA (test code = 138 mmol/L 135-145 6875213825) K (test code = 3.8 mmol/L 3.5-5.0 5173871212) CL (test code = 108 mmol/L 98-108 1493735607) CO2 TOTAL (test code = 23 mmol/L 23-31 2976381529) AGAP (test code = 2-16 8175313416) BUN (test code = 5 mg/dL 7-23 L 6396299056) GLUCOSE (test code = 93 mg/dL 70-110 0199553294) CREATININE (test code = 0.61 mg/dL 0.50-1.04 2370911248) TOTAL BILI (test code = 0.7 mg/dL 0.1-1.9 9828705426) CALCIUM (test code = 8.6 mg/dL 8.6-10.6 9935495137) T PROTEIN (test code = 6.5 g/dL 6.3-8.2 9035199412) ALBUMIN (test code = 3.9 g/dL 3.5-5.0 4502373048) ALK PHOS (test code = 56 U/L 34-122 6343721907) ALTv (test code = 15 U/L 5-35 1742-6) AST(SGOT) (test code = 28 U/L 13-40 6466476017) eGFR (test code = mL/min/1.73m2 5782659194) VIRIDIANA (test code = VIRIDIANA) Association of [...] tests). Lab Interpretation Abnormal (test code = 03701-2) [facility] [id number] 07:38:17 Test Item Value Reference Range Interpretation Comments CK (test code = 3163981879) 62 U/L 33-194 Lab Interpretation (test code = Normal 47601-3) [facility] [id number] 07:38:17 Test Item Value Reference Range Interpretation Comments CK (test code = 3960508956) 62 U/L 33-194 Lab Interpretation (test code = Normal 25172-9) [facility]IS2021-[facility]-12 07:07:10 Test Item Value Reference Range Interpretation Comments APPEARANCE (test code = Cloudy Clear A 3514102830) COLOR (test code = Yellow Yellow 6638819087) PH (test code = 4.8-8.0 0190509716) SP GRAVITY (test code = 1.003-1.030 1784930965) GLU U QUAL (test code = Normal Normal 5460510923) BLOOD (test code = Negative Negative 1720780762) KETONES (test code = 5 mg/dL Negative A 2890826631) PROTEIN (test code = 100 mg/dL Negative A 2887-8) UROBILIN (test code = 2.0 mg/dL Normal A 4370783389) BILIRUBIN (test code = Negative Negative 1580144980) NITRITE (test code = Negative Negative 6272948455) LEUK DENNIS (test code = 500/uL Negative A 0643410540) RBC/HPF (test code = See_Comment [Autom ated message] 2248367072) The system [employer] generated this result transmit carole reference range : 0 - 3 HPF. The refe rence range was not u sed to interpret th is result as normal/abnormal . WBC/HPF (test code = See_Comment H [Autom ated message] 7880673278) The system [employer] generated this result transmit carole reference range : 0 - 5 HPF. The refe rence range was not u sed to interpret th is result as normal/abnormal . BACTERIA (test code = Many Negative A 8425888690) MUCOUS (test code = Moderate Negative LPF A 9472972827) SQ EPITH (test code = HPF 2511527175) CA OXALATE (test code = See_Comment [Au tomated message] 7981709387) The system [employer] generated this result transmit carole reference range : <=1 HPF. The refere nce range was not u sed to interpret th is result as normal/abnormal . HYAL CAST (test code = See_Comment H [Aut omated message] 6844061007) The system [employer] generated this result transmit carole reference range : <=2 LPF. The refere nce range was not u sed to interpret th is result as normal/abnormal . Lab Interpretation (test Abnormal code = 15609-4) [facility] Test Item Value Reference Range Interpretation Comments APPEARANCE (test code = Cloudy Clear A 3785944921) COLOR (test code = Yellow Yellow 3391407735) PH (test code = 4.8-8.0 3317993010) SP GRAVITY (test code = 1.003-1.030 4647619691) GLU U QUAL (test code = Normal Normal 8380093878) BLOOD (test code = Negative Negative 5622054229) KETONES (test code = 5 mg/dL Negative A 3825873893) PROTEIN (test code = 100 mg/dL Negative A 2887-8) UROBILIN (test code = 2.0 mg/dL Normal A 8065854209) BILIRUBIN (test code = Negative Negative 9543290036) NITRITE (test code = Negative Negative 6952288959) LEUK DENNIS (test code = 500/uL Negative A 5021475576) RBC/HPF (test code = See_Comment [Autom ated message] 9238046709) The system [facility] generated this result transmit carole reference range : 0 - 3 HPF. The refe rence range was not u sed to interpret th is result as normal/abnormal . WBC/HPF (test code = See_Comment H [Autom ated message] 7352217692) The system [facility] generated this result transmit carole reference range : 0 - 5 HPF. The refe rence range was not u sed to interpret th is result as normal/abnormal . BACTERIA (test code = Many Negative A 2763653068) MUCOUS (test code = Moderate Negative LPF A 3451038036) SQ EPITH (test code = HPF 5030559128) CA OXALATE (test code = See_Comment [Au tomated message] 5796358197) The system [facility] generated this result transmit carole reference range : <=1 HPF. The refere nce range was not u sed to interpret th is result as normal/abnormal . HYAL CAST (test code = See_Comment H [Aut omated message] 1018892511) The system [facility] [employer] generated this result transmit carole reference range : <=2 LPF. The refere nce range was not u sed to interpret th is result as normal/abnormal . Lab Interpretation (test Abnormal code = 17773-4) [facility]2020-12-02 06:56:19 Test Item Value Reference Range Interpretation Comments SARS-CoV-2 Rapid ID NOW Not Detected Not Detected (test code = 96069-6) VIRIDIANA (test code = VIRIDIANA) ID NOW COVID-19 Assay is an isothermal nucleic acid amplification test intended for the qualitative detection of nucleic acid from SARS-CoV-2 viral RNA in nasopharyngeal (DIRECTOR ORANGE) specimens. It is used under Emergency Use [...] indicated. Lab Interpretation Normal (test code = 46870-1) [facility]2020-12-02 06:56:19 Test Item Value Reference Range Interpretation Comments SARS-CoV-2 Rapid ID NOW Not Detected Not Detected (test code = 11907-8) VIRIDIANA (test code = VIRIDIANA) ID NOW COVID-19 Assay is an isothermal nucleic acid amplification test intended for the qualitative detection of nucleic acid from SARS-CoV-2 viral RNA in nasopharyngeal (DIRECTOR ORANGE) specimens. It is used under Emergency Use [...] indicated. Lab Interpretation Normal (test code = 75549-8) [facility] WITH [id number] 06:42:15 Test Item Value Reference Range Interpretation Comments WBC (test code = See_Comment [Automated message] 7890-2) The system [facility] generated this result transmitted ref erence range: 4.50 - 1 3.50 10*3/?L. The re ference range was not u sed to interpret this result as normal/abnor mal. RBC (test code = See_Comment [Automated message] 379-8) The system [facility] generated this result transmitted ref erence range: [...] RDW-SD (test code 40.5 fL 38.5-49.0 = 57898-6) RDW-CV (test code 13.1 % 11.5-14.0 = 788-0) PLT (test code = See_Comment [Automated message] 777-3) The system whic h generated this result transmitted ref erence range: 135 - 36 1 10*3/?L. The re ference range was not u sed to interpret this result as normal/abnor mal. MPV (test code = 12.9 fL 9.4-13.3 66297-2) NRBC/100 WBC (test See_Comment [Automat ed message] code = 8016958870) The syste m which generated this result transmitted ref erence range: 0.0 - 10 .0 /100 WBCs. The refer ence range was not u sed to interpret this result as normal/abnor mal. NRBC x10^3 (test <0.01 See_Comment [Automated message] code = 2705495727) The syste m which generated this result transmitted ref erence range: 10*3/?L. The reference range was not used to interpr et this result as normal/abnormal . GRAN MAT (NEUT) % 63.7 % (test code = 770-8) IMM GRAN % (test 0.40 % code = 3503802762) LYMPH % (test code 27.4 % = 736-9) MONO % (test code 7.2 % = 5905-5) EOS % (test code = 1.0 % 713-8) BASO % (test code 0.3 % = 706-2) GRAN MAT 4.40 10*3/uL 1.50-10.30 x10^3(ANC) (test code = 6616119667) IMM GRAN x10^3 0.03 10*3/uL 0.00-0.06 (test code = 5712268030) LYMPH x10^3 (test 1.89 10*3/uL 0.70-7.40 code = 731-0) MONO x10^3 (test 0.50 10*3/uL 0.00-0.50 code = 742-7) EOS x10^3 (test 0.07 10*3/uL 0.00-0.40 code = 711-2) BASO x10^3 (test <0.03 0.00-0.10 code = 704-7) [facility] WITH [id number] 06:42:15 Test Item Value Reference Range Interpretation Comments WBC (test code = See_Comment [Automated message] 0990-2) The system [facility] generated this result transmitted ref erence range: 4.50 - 1 3.50 10*3/?L. The re ference range was not u sed to interpret this result as normal/abnor mal. RBC (test code = See_Comment [Automated message] 039-8) The system [facility] generated this result transmitted ref erence range: [...] RDW-SD (test code 40.5 fL 38.5-49.0 = 53496-7) RDW-CV (test code 13.1 % 11.5-14.0 = 788-0) PLT (test code = See_Comment [Automated message] 777-3) The system [facility] generated this result transmitted ref erence range: 135 - 36 1 10*3/?L. The re ference range was not u sed to interpret this result as normal/abnor mal. MPV (test code = 12.9 fL 9.4-13.3 31724-7) NRBC/100 WBC (test See_Comment [Automat ed message] code = 0791677079) The syste m which generated this result transmitted ref erence range: 0.0 - 10 .0 /100 WBCs. The refer ence range was not u sed to interpret this result as normal/abnor mal. NRBC x10^3 (test <0.01 See_Comment [Automated message] code = 8784549581) The syste m which generated this result transmitted ref erence range: 10*3/?L. The reference range was not used to interpr et this result as normal/abnormal . GRAN MAT (NEUT) % 63.7 % (test code = 770-8) IMM GRAN % (test 0.40 % code = 6843707553) LYMPH % (test code 27.4 % = 736-9) MONO % (test code 7.2 % = 5905-5) EOS % (test code = 1.0 % 713-8) BASO % (test code 0.3 % = 706-2) GRAN MAT 4.40 10*3/uL 1.50-10.30 x10^3(ANC) (test code = 9261147972) IMM GRAN x10^3 0.03 10*3/uL 0.00-0.06 (test code = 7660576112) LYMPH x10^3 (test 1.89 10*3/uL 0.70-7.40 code = 731-0) MONO x10^3 (test 0.50 10*3/uL 0.00-0.50 code = 742-7) EOS x10^3 (test 0.07 10*3/uL 0.00-0.40 code = 711-2) BASO x10^3 (test <0.03 0.00-0.10 code = 704-7) [facility] [id number] 06:36:00 Test Item Value Reference Range Interpretation Comments POCT PREG (test code = 1605) neg On board controls acceptable with yes C Line (test code = 3574) POCT PREG LOT # (test code = [id number]) POCT PREG TEST DATE (test code = 3576) Lab Interpretation (test code = Normal 76900-5) [facility] [id number] 06:36:00 Test Item Value Reference Range Interpretation Comments POCT PREG (test code = 1605) neg On board controls acceptable with yes C Line (test code = 3574) POCT PREG LOT # (test code = [id number]) POCT PREG TEST DATE (test code = 3576) Lab Interpretation (test code = Normal 47011-1) [facility] Whole [id number] 06:31:07 Test Item Value Reference Range Interpretation Comments LACTIC ACID (test code = 2.66 mmol/L 0.50-2.20 H 0509046945) Lab Interpretation (test code = Abnormal 83836-7) [facility] [id number] 06:31:07 Test Item Value Reference Range Interpretation Comments LACTIC ACID (test code = 2.66 mmol/L 0.50-2.20 H 4477996191) Lab Interpretation (test code = Abnormal 62878-2) [facility] [id number] 08:22:54 Test Item Value Reference Range Interpretation Comments CK (test code = 9495907329) 101 U/L 33-194 Lab Interpretation (test code = Normal 66112-5) [facility] [id number] 08:22:54 Test Item Value Reference Range Interpretation Comments CK (test code = 9938551026) 101 U/L 33-194 Lab Interpretation (test code = Normal 27263-2) [facility] HEAD WO [id number] 07:07:23 Impression: No CT evidence for acute intracranial abnormality. RL: 460 AFC: [id number] Ordering physician: CHAUNCEY SMITH Indication: Altered level [...] evidence for acute intracranial abnormal ity.RL: 460AFC: [id number] signed by Pooja Rowland MD, PhD at 11/30/2020 2:07 [facility]Un[facility]CT [facility] [id number] 07:07:23Impression: No CT evidence for acute intracranial abnormality. RL: 460 AFC: [id number] Ordering physician: CHAUNCEY SMITH Indication: Altered level [...] evidence for acute intracranial abnormal ity.RL: 460AFC: [id number] signed by oPoja Rowland MD, PhD at 11/30/2020 2:07 AMUnD[facility] TexasDRUG SCREEN PANEL 2 URINE 2020-11-30 05:54:09 Test Item Value Reference Range Interpretation Comments AMPHET (test code = Negative Negative 9037643108) FABIO U (test code = Negative Negative 6641993682) BENZO U (test code = Presumptive Positive Negative A 4063614243) Cocaine Metabolite (test Negative Negative code = 5107527044) METHADONE (test code = Negative Negative 1421830056) OPIATES (test code = Negative Negative 1173844158) PCP (test code = Negative Negative 7034646387) THC (test code = Presumptive Positive Negative A 4059158612) VIRIDIANA (test code = VIRIDIANA) Urine Drug [...] testing). Lab Interpretation (test Abnormal code = 43845-9) [facility] [id number] 05:54:09 Test Item Value Reference Range Interpretation Comments AMPHET (test code = Negative Negative 0060359605) FABIO U (test code = Negative Negative 1386606064) BENZO U (test code = Presumptive Positive Negative A 1115124825) Cocaine Metabolite (test Negative Negative code = 1761582754) METHADONE (test code = Negative Negative 0105985688) OPIATES (test code = Negative Negative 0761363624) PCP (test code = Negative Negative 4708820429) THC (test code = Presumptive Positive Negative A 9597109209) VIRIDIANA (test code = VIRIDIANA) Urine Drug [...] testing). Lab Interpretation (test Abnormal code = 99759-8) [facility]-19 (ID NOW RAPID TESTING)2020-11-30 05:49:31 Test Item Value Reference Range Interpretation Comments SARS-CoV-2 Rapid ID NOW Not Detected Not Detected (test code = 90394-1) VIRIDIANA (test code = VIRIDIANA) ID NOW COVID-19 Assay is an isothermal nucleic acid amplification test intended for the qualitative detection of nucleic acid from SARS-CoV-2 viral RNA in nasopharyngeal (DIRECTOR ORANGE) specimens. It is used under Emergency Use [...] indicated. Lab Interpretation Normal (test code = 22871-4) [facility]-19 (ID NOW RAPID TESTING)2020-11-30 05:49:31 Test Item Value Reference Range Interpretation Comments SARS-CoV-2 Rapid ID NOW Not Detected Not Detected (test code = 75836-4) VIRIDIANA (test code = VIRIDIANA) ID NOW COVID-19 Assay is an isothermal nucleic acid amplification test intended for the qualitative detection of nucleic acid from SARS-CoV-2 viral RNA in nasopharyngeal (DIRECTOR ORANGE) specimens. It is used under Emergency Use [...] indicated. Lab Interpretation Normal (test code = 80730-8) [facility] 05[facility]49:21 Test Item Value Reference Range Interpretation Comments APPEARANCE (test code = Hazy Clear A 9917024291) COLOR (test code = Lazara Yellow A 0150845077) PH (test code = 4.8-8.0 3666294791) SP GRAVITY (test code = 1.003-1.030 2568034887) GLU U QUAL (test code = Normal Normal 6133730810) BLOOD (test code = Negative Negative Interfere nce from 5861681058) ascorbic acid m ay cause false neg ative results. KETONES (test code = 20 mg/dL Negative A 5277822863) PROTEIN (test code = 30 mg/dL Negative A 2887-8) UROBILIN (test code = 4.0 mg/dL Normal A 0544175159) BILIRUBIN (test code = Negative Negative 2575247415) NITRITE (test code = Negative Negative 4020430299) LEUK DENNIS (test code = 500/uL Negative A 6699091973) RBC/HPF (test code = See_Comment H [Autom ated message] 3521066055) The system [employer] generated this result transmitted ref erence range: 0 - 3 HP F. The reference range was not used to int erpret this result as normal/abnormal . WBC/HPF (test code = See_Comment H [Autom ated message] 2100173859) The system [employer] generated this result transmitted ref erence range: 0 - 5 HP F. The reference range was not used to int erpret this result as normal/abnormal . BACTERIA (test code = Few Negative A 9572253248) MUCOUS (test code = Slight Negative LPF A 6375288206) SQ EPITH (test code = HPF 2060714215) Lab Interpretation Abnormal (test code = 51347-6) [facility] 05:49:21 Test Item Value Reference Range Interpretation Comments APPEARANCE (test code = Hazy Clear A 9776347318) COLOR (test code = Lazara Yellow A 4377177586) PH (test code = 4.8-8.0 0956770898) SP GRAVITY (test code = 1.003-1.030 9229305947) GLU U QUAL (test code = Normal Normal 7520175160) BLOOD (test code = Negative Negative Interfere nce from 5677050701) ascorbic acid m ay cause false neg ative results. KETONES (test code = 20 mg/dL Negative A 9321152800) PROTEIN (test code = 30 mg/dL Negative A 2887-8) UROBILIN (test code = 4.0 mg/dL Normal A 8213662680) BILIRUBIN (test code = Negative Negative 8796040911) NITRITE (test code = Negative Negative 2904130155) LEUK DENNIS (test code = 500/uL Negative A 9650684142) RBC/HPF (test code = See_Comment H [Autom ated message] 9787072989) The system [facility] generated this result transmitted ref erence range: 0 - 3 HP F. The reference range was not used to int erpret this result as normal/abnormal . WBC/HPF (test code = See_Comment H [Autom ated message] 8609308930) The system [facility] generated this result transmitted ref erence range: 0 - 5 HP F. The reference range was not used to int erpret this result as normal/abnormal . BACTERIA (test code = Few Negative A 9413707325) MUCOUS (test code = Slight Negative LPF A 9085252115) SQ EPITH (test code = HPF 6943313485) Lab Interpretation Abnormal (test code = 96638-2) [facility] 05:47:51 Test Item Value Reference Range Interpretation Comments MAGNESIUM (test code = 8532884994) 2.1 mg/dL 1.7-2.4 Lab Interpretation (test code = Normal 14662-0) [facility] 05:47:51 Test Item Value Reference Range Interpretation Comments MAGNESIUM (test code = 6413575835) 2.1 mg/dL 1.7-2.4 Lab Interpretation (test code = Normal 47457-9) [facility] MET[facility]OLIC PANEL (07038)2020-11-30 05:47:35 Test Item Value Reference Range Interpretation Comments NA (test code = 139 mmol/L 135-145 5495932359) K (test code = 3.4 mmol/L 3.5-5.0 L 5213982360) CL (test code = 105 mmol/L 98-108 3132758300) CO2 TOTAL (test code = 24 mmol/L 23-31 6896294234) AGAP (test code = 2-16 2194297847) BUN (test code = 8 mg/dL 7-23 5441195124) GLUCOSE (test code = 84 mg/dL 70-110 0304225800) CREATININE (test code = 0.70 mg/dL 0.50-1.04 0893665869) TOTAL BILI (test code = 0.6 mg/dL 0.1-1.2 1919443869) CALCIUM (test code = 9.3 mg/dL 8.6-10.6 9907496856) T PROTEIN (test code = 7.7 g/dL 6.3-8.2 9410057162) ALBUMIN (test code = 4.6 g/dL 3.5-5.0 9448802575) ALK PHOS (test code = 76 U/L 34-122 5398668307) ALTv (test code = 19 U/L 5-35 1742-6) AST(SGOT) (test code = 25 U/L 13-40 5696293605) eGFR (test code = mL/min/1.73m2 3569399812) VIRIDIANA (test code = VIRIDIANA) Association of [...] tests). Lab Interpretation Abnormal (test code = 05814-4) [facility]. METABOLIC PANEL (50230)2020-11-30 05:47:35 Test Item Value Reference Range Interpretation Comments NA (test code = 139 mmol/L 135-145 3681805311) K (test code = 3.4 mmol/L 3.5-5.0 L 9180700678) CL (test code = 105 mmol/L 98-108 0243383034) CO2 TOTAL (test code = 24 mmol/L 23-31 2210769057) AGAP (test code = 2-16 4274121898) BUN (test code = 8 mg/dL 7-23 7871063499) GLUCOSE (test code = 84 mg/dL 70-110 5980185860) CREATININE (test code = 0.70 mg/dL 0.50-1.04 3556454524) TOTAL BILI (test code = 0.6 mg/dL 0.1-1.4 3371848653) CALCIUM (test code = 9.3 mg/dL 8.6-10.6 8199984134) T PROTEIN (test code = 7.7 g/dL 6.3-8.2 7028115173) ALBUMIN (test code = 4.6 g/dL 3.5-5.0 6207706465) ALK PHOS (test code = 76 U/L 34-122 3606420684) ALTv (test code = 19 U/L 5-35 1742-6) AST(SGOT) (test code = 25 U/L 13-40 9695017069) eGFR (test code = mL/min/1.73m2 2105050895) VIRIDIANA (test code = VIRIDIANA) Association of [...] tests). Lab Interpretation Abnormal (test code = 75365-4) [facility]2020-11-30 05:45:23 Test Item Value Reference Range Interpretation Comments POCT GLU (test code = 2662683754) 83 mg/dL 70-110 Lab Interpretation (test code = Normal 32023-9) [facility]2020-11-30 05:45:23 Test Item Value Reference Range Interpretation Comments POCT GLU (test code = 3553554736) 83 mg/dL 70-110 Lab Interpretation (test code = Normal 56250-3) [facility] + LACTIC [id number] 05:35:20 Test Item Value Reference Range Interpretation Comments PH (test code = 2) 7.35-7.45 PCO2 (test code = See_Comment [Automat ed 6718051652) message] The sy stem which generated this result transmitted reference range : 35 - 45 mmHg. The reference range was not used to interpret this result as normal/abnormal . PO2 (test code = See_Comment H [Automated 7032000613) message] The sy stem which generated this result transmitted reference range : 80 - 100 mmHg. The reference range was not used to interpret this result as normal/abnormal . HCO3 (test code = See_Comment [Automate d 0104027061) message] The sy stem which generated this result transmitted reference range : 22 - 26 mEq/L. The reference range was not used to interpret this result as normal/abnormal . BE (test code = See_Comment [Automated 9922174779) message] The sy stem which generated this result transmitted reference range : -3.0 - 3.0 mEq/ L. The reference r lorene was not used to interpret this result as normal/abnormal . THB (test code = 13.4 g/dL 12.0-16.0 8102482369) %O2HB (test code = 98.5 % 94.0-99.0 8215048137) %COHB ART (test code = 0.0 % 0.0-1.5 1869175027) %METHB ART (test code = 0.3 % 0.4-1.5 L 5025991143) VOL%O2 ART (test code = 18.8 % 15.0-23.0 8619246277) NA (test code = 137 mmol/L 135-145 1295064739) K+ (test code = 3.5 mmol/L 3.5-5.0 0865435952) AC CA IONZ (test code = 4.60 mg/dL 4.50-5.30 8505281247) GLUCOSE (test code = 81 mg/dL 70-110 6915424632) LACTIC ACID (test code 0.87 mmol/L 0.50-2.20 = 1780834255) Lab Interpretation Abnormal (test code = 82804-3) [facility] LACTIC [id number] 05:35:20 Test Item Value Reference Range Interpretation Comments PH (test code = 2) 7.35-7.45 PCO2 (test code = See_Comment [Automat ed 5464433194) message] The sy stem which generated this result transmitted reference range : 35 - 45 mmHg. The reference range was not used to interpret this result as normal/abnormal . PO2 (test code = See_Comment H [Automated 3210810272) message] The sy stem which generated this result transmitted reference range : 80 - 100 mmHg. The reference range was not used to interpret this result as normal/abnormal . HCO3 (test code = See_Comment [Automate d 7428922910) message] The sy stem which generated this result transmitted reference range : 22 - 26 mEq/L. The reference range was not used to interpret this result as normal/abnormal . BE (test code = See_Comment [Automated 0248500252) message] The sy stem which generated this result transmitted reference range : -3.0 - 3.0 mEq/ L. The reference r lorene was not used to interpret this result as normal/abnormal . THB (test code = 13.4 g/dL 12.0-16.0 0052679444) %O2HB (test code = 98.5 % 94.0-99.0 6056726032) %COHB ART (test code = 0.0 % 0.0-1.5 5818204075) %METHB ART (test code = 0.3 % 0.4-1.5 L 8072626162) VOL%O2 ART (test code = 18.8 % 15.0-23.0 7944944950) NA (test code = 137 mmol/L 135-145 5287964024) K+ (test code = 3.5 mmol/L 3.5-5.0 8197360409) AC CA IONZ (test code = 4.60 mg/dL 4.50-5.30 9830196915) GLUCOSE (test code = 81 mg/dL 70-110 5305357209) LACTIC ACID (test code 0.87 mmol/L 0.50-2.20 = 7486895245) Lab Interpretation Abnormal (test code = 06264-2) [facility] WITH [id number] 05:33:34 Test Item Value Reference Range Interpretation Comments WBC (test code = See_Comment [Automated 3390-2) message] The sy stem which generated this [...] RDW-SD (test code = 41.1 fL 38.5-49.0 87838-6) RDW-CV (test code = 13.2 % 11.5-14.0 788-0) PLT (test code = See_Comment [Automated 777-3) message] The sy stem which generated this result transmitted reference range : 135 - 361 10*3/ ?L. The reference r lorene was not used to interpret this result as normal/abnormal . MPV (test code = 12.5 fL 9.4-13.3 61501-9) NRBC/100 WBC (test See_Comment [Automat ed code = 8568510059) message] The system which generated this result transmitted reference range : 0.0 - 10.0 /100 WBCs. The refer ence range was not u sed to interpret th is result as normal/abnormal . NRBC x10^3 (test code <0.01 See_Comment [Auto mated = 7466728993) message] The s ystem which generated this result transmitted reference range : 10*3/?L. The reference range was not used to interpret this result as normal/abnormal . GRAN MAT (NEUT) % 59.1 % (test code = 770-8) IMM GRAN % (test code 0.40 % = 3043869382) LYMPH % (test code = 31.7 % 736-9) MONO % (test code = 7.0 % 5905-5) EOS % (test code = 1.3 % 713-8) BASO % (test code = 0.5 % 706-2) GRAN MAT x10^3(ANC) 4.58 10*3/uL 1.50-10.30 (test code = 6182464223) IMM GRAN x10^3 (test 0.03 10*3/uL 0.00-0.06 code = 5879367019) LYMPH x10^3 (test code 2.45 10*3/uL 0.70-7.40 = 731-0) MONO x10^3 (test code 0.54 10*3/uL 0.00-0.50 H = 742-7) EOS x10^3 (test code = 0.10 10*3/uL 0.00-0.40 711-2) BASO x10^3 (test code 0.04 10*3/uL 0.00-0.10 = 704-7) Lab Interpretation Abnormal (test code = 31678-1) [facility] WITH [id number] 05:33:34 Test Item Value Reference Range Interpretation Comments WBC (test code = See_Comment [Automated 7498-2) message] The sy stem which generated this result transmitted reference range : 4.50 - 13.50 10*3/?L. The reference range was not used to interpret this result as normal/abnormal . RBC (test code = See_Comment [Automated 459-8) message] The sy stem which generated this [...] RDW-SD (test code = 41.1 fL 38.5-49.0 00742-9) RDW-CV (test code = 13.2 % 11.5-14.0 788-0) PLT (test code = See_Comment [Automated 777-3) message] The sy stem which generated this result transmitted reference range : 135 - 361 10*3/ ?L. The reference r lorene was not used to interpret this result as normal/abnormal . MPV (test code = 12.5 fL 9.4-13.3 41507-1) NRBC/100 WBC (test See_Comment [Automat ed code = 8880204729) message] The system which generated this result transmitted reference range : 0.0 - 10.0 /100 WBCs. The refer ence range was not u sed to interpret th is result as normal/abnormal . NRBC x10^3 (test code <0.01 See_Comment [Auto mated = 1259926432) message] The s ystem which generated this result transmitted reference range : 10*3/?L. The reference range was not used to interpret this result as normal/abnormal . GRAN MAT (NEUT) % 59.1 % (test code = 770-8) IMM GRAN % (test code 0.40 % = 4570966727) LYMPH % (test code = 31.7 % 736-9) MONO % (test code = 7.0 % 5905-5) EOS % (test code = 1.3 % 713-8) BASO % (test code = 0.5 % 706-2) GRAN MAT x10^3(ANC) 4.58 10*3/uL 1.50-10.30 (test code = 4112851473) IMM GRAN x10^3 (test 0.03 10*3/uL 0.00-0.06 code = 6168715426) LYMPH x10^3 (test code 2.45 10*3/uL 0.70-7.40 = 731-0) MONO x10^3 (test code 0.54 10*3/uL 0.00-0.50 H = 742-7) EOS x10^3 (test code = 0.10 10*3/uL 0.00-0.40 711-2) BASO x10^3 (test code 0.04 10*3/uL 0.00-0.10 = 704-7) Lab Interpretation Abnormal (test code = 68698-2) [facility] GLUCOSE(AGE >30DAYS)2020-11-30 05:31:00 Test Item Value Reference Range Interpretation Comments POCT Glu (age>30days) (test code = 83 mg/dL 70-110 3342) Lab Interpretation (test code = Normal 73918-8) [facility] GLUCOSE(AGE >30DAYS)2020-11-30 05:31:00 Test Item Value Reference Range Interpretation Comments POCT Glu (age>30days) (test code = 83 mg/dL 70-110 3342) Lab Interpretation (test code = Normal 21217-7) [facility] [id number] 05:26:00 Test Item Value Reference Range Interpretation Comments POCT PREG (test code = 1605) NEGATIVE On board controls acceptable with POSITIVE C Line (test code = 3574) POCT PREG LOT # (test code = 3575) [id number] POCT PREG TEST DATE (test 03/22/2022 code = 3576) Lab Interpretation (test code = Normal 52532-8) [facility] [id number] 05:26:00 Test Item Value Reference Range Interpretation Comments POCT PREG (test code = 1605) NEGATIVE On board controls acceptable with POSITIVE C Line (test code = 3574) POCT PREG LOT # (test code = 3575) [id number] POCT PREG TEST DATE (test 03/22/2022 code = 3576) Lab Interpretation (test code = Normal 18123-4) [facility] HEAD WO [id number] 04:38:43 1. No intracranial abnormalities.2. Left parietal [...] within normal limits for the patient's age. [facility], Radiant Results Inft User - [...] with no skull fractureRL: [id number] of report [facility] CERVICAL [facility] 3 [id number] 04:36:57Unremarkable cervical spine radiographs RL: [id number] End [...] normal.IMPRESSIONUnremarkable cervical spine radiographsRL: [id number] of report [facility]"
[2021-06-26 10:38] LABS: Absolute Lymphocytes (CBC) 1.9 K/uL (0.7-4.9); Hematocrit 38.8 % (36.0-45.0); Lymphocytes % 33.9 % (15.3-44.8); MPV 9.8 fL (7.6-11.3); RBC Red Blood Cell Count 4.47 M/uL (3.86-4.86)
[2021-06-26 10:39] LABS: Protime INR 1.17
--- NOTE | 2021-06-26 10:44 | RAD REPORT ---
EXAM DESCRIPTION: CT - CTHCSPWOC - 06/26/2021 10:25 am CLINICAL HISTORY: AMS COMPARISON: No comparisons TECHNIQUE: Axial 5 mm thick images of the head were obtained. Axial 2 mm thick images of the cervical spine were obtained with sagittal and coronal reconstruction images generated and reviewed. All CT scans are performed using dose optimization technique as appropriate and may include automated exposure control or mA/KV adjustment according to patient size. FINDINGS: CT HEAD WITHOUT CONTRAST: No acute hemorrhage, hydrocephalus or extra-axial collection is identified.No areas of brain edema or midline shift. The paranasal sinuses and mastoids are clear.The calvarium is intact. CT CERVICAL SPINE WITHOUT CONTRAST: No fracture or subluxation.No prevertebral soft tissues swelling is identified. Loss of the normal ce rvical lordosis. IMPRESSION: No acute intracranial or cervical spine findings.
[2021-06-26] MEDS ORDERED: NA CHLORIDE 0.9% 1,000 ML ONE (10:45)
[2021-06-26 10:58] LABS: ALT/SGPT 18 U/L (12-78); AST/SGOT 16 U/L (15-37); Alkaline Phosphatase 64 U/L (45-117); BUN Blood Urea Nitrogen 11 mg/dL (7-18); Bicarbonate 19 mmol/L (21-32); Bilirubin Direct 0.2 mg/dL (0-0.2); Bilirubin Total 0.6 mg/dL (0.2-1.0); Glucose Level 117 mg/dL (74-106); Potassium 3.2 mmol/L (3.5-5.1); Protein, Total 7.1 g/dL (6.4-8.2); Sodium Level 138 mmol/L (136-145)
[2021-06-26 11:20] LABS: Urine Blood Negative (Negative); Urine Glucose Negative (Negative); Urine Protein Trace (Negative); Urine Specific Gravity >=1.030 (1.005-1.030)
[2021-06-26 11:44] LABS: Barbiturates NEGATIVE (NEGATIVE); Benzodiazepines NEGATIVE (NEGATIVE); Cocaine NEGATIVE (NEGATIVE); METHAMPHETAM NEGATIVE (NEGATIVE); Methadone NEGATIVE (NEGATIVE); Opiates NEGATIVE (NEGATIVE); Phencyclidine NEGATIVE (NEGATIVE); THC Cannibis POSITIVE (NEGATIVE)
[2021-06-26] MEDS ORDERED: POTASSIUM CL SA 10 MEQ TAB PO ONE (12:10)
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
--- NOTE | 2021-06-26 14:40 | EDPHYS ---
Physician Documentation [facility] Name: Sofie Jensen Age: 20 yrs Sex: Female : 2000 Arrival Date: 06/26/2021 Time: 10:02 Bed 5 Private MD: ED Physician Terry Elliott HPI: 06/26 11:21 This 20 yrs old Female presents to ER via EMS with complaints of Recurrent kdr seizure activity and altered mental status. 11:21 The patient presents with confusion, disorientation, seizure activity, This department kdr was called for patient was running in and out of traffic. They were able to coax the patient into a safe area and then drain her until EMS arrived. EMS reports altered mental status, confusion and possible seizure activity. Patient has had frequent encounters with EMS and police in the recent weeks. These incidents have been similar and had similar aspects to today's encounter. EMS reports that the patient may have had a change in her status with her significant other which may have precipitated most recent events. EMS and police report that there was not any trauma involved. Onset: The symptoms/episode began/occurred today. Possible causes: CVA or TIA, drug use, alcohol, head injury, sepsis, unknown. Associated signs and symptoms: The patient has no apparent associated signs or symptoms. Patient's baseline: Neuro: not alert, My initial evaluation, the patient was laying calmly in bed. Her eyes were closed. When her eyelashes were touch she flinched. When her eyes were opened, her gaze went up into the right. The patient otherwise was resting calmly in bed without any seizure activity. The patient has experienced similar episodes in the past. The patient has not recently seen a physician. 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 - Social history:: Smoking status: unknown. ROS: 11:21 Constitutional: Negative for fever, chills, and weight loss, Eyes: Negative for injury, kdr pain, redness, and discharge, Neck: Negative for injury, pain, and swelling, Cardiovascular: Negative for chest pain, palpitations, and edema, Respiratory: Negative for shortness of breath, cough, wheezing, and pleuritic chest pain. 11:21 Unable to obtain ROS due to altered mental status, obtunded state. Exam: 11:28 Constitutional: This is a well developed, well nourished patient who is somnolent but kdr in no acute distress. Head/Face: Normocephalic, atraumatic. Eyes: Pupils equal round and reactive to light, extra-ocular motions intact. Lids and lashes normal. Conjunctiva and sclera are non-icteric and not injected. Cornea within normal limits. Periorbital areas with no swelling, redness, or edema. Neck: Trachea midline, no thyromegaly or masses palpated, and no cervical lymphadenopathy. Supple, full range of motion without nuchal rigidity, or vertebral point tenderness. No Meningismus. Chest/axilla: Normal chest wall appearance and motion. Nontender with no deformity. No lesions are appreciated. Cardiovascular: Regular rate and rhythm with a normal S1 and S2. No gallops, murmurs, or rubs. Normal PMI, no JVD. No pulse deficits. Respiratory: Lungs have equal breath sounds bilaterally, clear to auscultation and percussion. No rales, rhonchi or wheezes noted. No increased work of breathing, no retractions or nasal flaring. Abdomen/GI: Soft, non-tender, with normal bowel sounds. No distension or tympany. No guarding or rebound. No evidence of tenderness throughout. Back: No spinal tenderness. No costovertebral tenderness. Full range of motion. Skin: Warm, dry with normal turgor. Normal color with no rashes, no lesions, and no evidence of cellulitis. MS/ Extremity: Pulses equal, no cyanosis. Neurovascular intact. Full, normal range of motion. Neuro: Awake and alert, GCS 15, oriented to person, place, time, and situation. Cranial nerves II-XII grossly intact. Motor strength 5/5 in all extremities. Sensory grossly intact. Cerebellar exam normal. Normal gait except for limp from leg pain and prior injury 11:28 Psych: Behavior/mood is Show the patient was uncooperative but after a few minutes, she kdr was awake and interacting appropriately with the staff though she seems somewhat slow to respond. Affect is calm, flat, Oriented to person, place, Patient has no thoughts/intents to harm self or others. Judgement / Insight is normal. Delusions/hallucinations are not present. Vital Signs: 09:55 BP 122 / 70; Pulse 97; Resp 13 S; Temp 97.8(O); Pulse Ox 100% on R/A; Weight 56.7 kg; jg9 Height 5 ft. 5 in. (165.10 cm); Pain 0/10; 11:45 BP 113 / 69; Pulse 71; Resp 13 S; Pulse Ox 95% on R/A; Pain 0/10; jg9 12:15 BP 119 / 90; Pulse 73; Resp 14 S; Pulse Ox 98% on R/A; jg9 13:15 BP 111 / 69; Pulse 81; Resp 19 S; Pulse Ox 100% ; jg9 14:15 BP 120 / 77; Pulse 89; Resp 16 S; Pulse Ox 100% on R/A; jg9 15:15 BP 121 / 71; Pulse 89; Resp 16 S; Pulse Ox 100% on R/A; jg9 19:28 BP 104 / 56; Pulse 65; Resp 19; Pulse Ox 100% on R/A; wm 20:50 BP 103 / 62; Pulse 62; Resp 17; Pulse Ox 100% on R/A; wm 21:49 BP 106 / 73; Pulse 73; Resp 22 S; Pulse Ox 100% on R/A; wm 22:45 BP 109 / 81; Pulse 77; Resp 13 S; Pulse Ox 100% on R/A; wm 23:45 BP 124 / 81; Pulse 72; Resp 20 S; Pulse Ox 98% on R/A; wm 09:55 Body Mass Index 20.80 (56.70 kg, 165.10 cm) j9 MDM: 11:28 Data reviewed: vital signs, nurses notes, lab test result(s), radiologic studies. kdr Counseling: I had a detailed discussion with the patient and/or guardian regarding: the historical points, exam findings, and any diagnostic results supporting the discharge/admit diagnosis, lab results, radiology results, the need for outpatient follow up. 14:39 Patient medically screened. kdr 18:26 ED course: Patient was largely stable in the ED. There was a short period where a kdr family member or friend came back at which time the patient became more acting out and difficult to manage. The nursing staff however did a good job of getting the patient under control and she has been quiet and cooperative since that time in the ED. Patient's mother reportedly called the ED, I spoke with her briefly, I indicated that I was happy to send her to [facility] however that facility is now not returning her calls or stating they have bed availability. They had informed us earlier after I had spoken with the accepting physician that they may or may not have beds later in the day. In the interim, a psychiatric bed was secured at [facility]. Patient was aware that that was her terminal facility for today. She was satisfied with that transfer and destination. I indicated to the patient's reported mother that we were happy to transfer the patient where they want to go. Further that I believe that that was the best outcome for the patient. However at this time, there was no bed availability at that facility.. 06/26 10:03 Order name: Acetaminophen; Complete Time: 11:20 kdr 06/26 10:03 Order name: Basic Metabolic Panel; Complete Time: 11:20 kdr 06/26 10:03 Order name: CBC with Diff; Complete Time: 10: kdr 06/26 10:03 Order name: ETOH Level; Complete Time: 10:51 kdr 06/26 10:03 Order name: Hepatic Function; Complete Time: 11: kdr 06/26 10:03 Order name: PT-INR; Complete Time: 10:51 kdr 06/26 10:03 Order name: Ptt, Activated; Complete Time: 10:51 kdr 06/26 10:03 Order name: Salicylate; Complete Time: 11:20 kdr 06/26 10:03 Order name: Urine Drug Screen; Complete Time: 12:09 kdr 06/26 10:03 Order name: CT Head C Spine; Complete Time: 10:51 kdr 06/26 11:20 Order name: Urine Dipstick-Ancillary; Complete Time: 12:09 EDMS 06/26 12:04 Order name: COVID-19 SARS RT PCR (Document "Date of Onset" if Symptomatic); Complete jg9 Time: 14:23 06/26 10:03 Order name: EKG; Complete Time: 10:04 kdr 06/26 10:03 Order name: EKG - Nurse/Tech; Complete Time: 10:48 kdr 06/26 10:03 Order name: IV Saline Lock; Complete Time: 10: kdr 06/26 10:03 Order name: Labs collected and sent; Complete Time: 10:23 kdr 06/26 10:03 Order name: Suicide Screening ([place]); Complete Time: 13:24 kdr 06/26 10:03 Order name: Urine Dipstick-Ancillary (obtain specimen); Complete Time: 12:10 kdr 06/26 13:08 Order name: Diet Finger Food; Complete Time: 13:09 bd Administered Medications: 10:48 Drug: NS 0.9% 1000 ml Route: IV; Rate: 1 bolus; Site: right antecubital; jg9 22:24 Follow up: IV Status: Completed infusion; IV Intake: 1000ml vc1 12:10 Drug: Potassium Chloride 40 mEq Route: PO; jg9 12:22 Follow up: Response: No adverse reaction jg9 06/27 01:13 Drug: Ativan (LORazepam) 2 mg Route: IVP; Site: right antecubital; vc1 02:18 Not Given (Patient Refused; "I dont want any needles"): Geodon (ziprasidone) 20 mg IM tw5 once Disposition Summary: 06/26/21 14:39 Transfer Ordered Transfer Location: Psych Facility kdr Reason: Higher level of care kdr Condition: Stable kdr Problem: an ongoing problem kdr Symptoms: are unchanged kdr Accepting Physician: Dr. Early(06/27/21 07:58) jl7 Diagnosis - Major depressive disorder, recurrent, unspecified kdr - Suicidal ideations kdr - Suicide attempt kdr Forms: - Medication Reconciliation Form kdr - SBAR form kdr Signatures: Dispatcher [employer] Terry Chaudhry MD MD kdr Salomon Goldman RN RN jl7 Tess Car tw5 Khushbu Jarquin RN RN jg9 Katie Aranda, RN RN vc1 Corrections: (The following items were deleted from the chart) 07:58 06/26 14:39 Dr. Early kdr [id number]
[2021-06-27] MEDS ORDERED: LORazepam 2 MG/ML VIAL ONE (01:00)
[2021-06-27] MEDS ORDERED: ZIPRASIDONE MESYLA 20 MG/VIAL IM ONE (01:01)
[2021-06-27] MEDS ORDERED: WATER FOR INJ,STERILE 10 ML ONE (01:02)
[2021-06-27 14:10] VITALS: TEMP 97.8
[2021-06-27 14:25] VITALS: BP 124/81; O2SAT 98
== END 2021-06-27 07:58 ==
LOC: ER 09:54
DX: R41.82 Altered mental status, unspecified (principal); F33.9 Major depressive disorder, recurrent, unspecified; X83.8XXA Intentional self-harm by other specified means, initial encounter; R56.9 Unspecified convulsions; Z20.822 Contact with and (suspected) exposure to COVID-19; Z91.018 Allergy to other foods
CPT/HCPCS: 96361; 93005; 85025; 80048; 36415; 80320; 80329 ×2; 85610; 80076; 85730; 81003; 80307; 70450; 72125; 96374; 99285; U0003; J7030; J3486

== ENCOUNTER 2021-07-27 23:24 | Emergency (ER) | payer OTHER ==
--- OUTSIDE RECORDS SUMMARY | 2021-07-27 23:28 | XMS REPORT | Continuity of Care Document ---
:2000 Author Organization [facility] t Address [address] [place] [address] Care Team Providers Name Role Phone PCP, [...] Number Effective Date Expiration Date Courtney JONES [phone] 2019 00:00:00 [place] XENIA [id number] 2017 HEALTH 00:00:00 Problems Condition Condition Condition Status Onset Resolution Last Treating Co mments Source Name Details Category Date Date Treatment Clinician Date Dehydratio Dehydratio Disease Active N PI:183 n n 9-12 [id number] 00:00: 00 Weakness Weakness Disease Active NPI:1 83 of both of both 12-02 [id number] lower lower 00:00: extremitie extremitie 00 s s Cystitis Cystitis Disease Active NPI:1 83 12-02 [id number] 00:00: 00 Complaints Complaints Disease Active N PI:183 of of 12-02 [id number] weakness weakness 00:00: of lower of lower 00 extremity extremity No known No known Disease NPI:1 83 active active [id number] problems problems Allergies, Adverse Reactions, Alerts Allergy Allergy Status Severity Reaction(s) Onset Inactive Treating Comm ents Source Name Type Date Date Clinician Colbert Propensi Active Hives NPI:183 And ty to - [id number] Derivati adverse 00:00: ves reaction 00 s CITRUS Drug Active Hives NPI:183 AND Class - [id number] DERIVATI 00:00: VES 00 Fruit Propensi Active Unknown - Allergy NPI: 183 Flavor ty to See comments 10-06 to 1318 781 adverse 00:00: oranges reaction 00 s FRUIT DRUG Active Unknown-Cmnt NPI: 183 FLAVOR INGREDI 10-06 [id number] 00:00: 00 Social History Social Habit Start Date Stop Date Quantity Comments Source Exposure to Not sure NPI:[id number] 1 SARS-CoV-2 (event) Tobacco use and 2017-11-19 2017-11-19 Never used NPI:[id number] 08883 exposure 00:00:00 00:00:00 Sex Ass[birth year] At [birth year] NPI:[id number] 00:00:00 00:00:00 Smoking Status Start Date Stop Date Source Never smoker Medications Ordered Filled Start Stop Current Ordering Indication Dosage Frequency Signature Comments Components Source Medication Medication Date Date Medication? Clinician (SIG) Name Name Potassium Yes 40meq 40 mEq, NPI: 183 Bicarb-Citr 9-14 Oral, [id number] ic Acid 14:00: DAILY, (EFFER-K) 00 First dose effervescen on Thu t tablet 40 12/04/20 at mEq 0900, Until Discontinu ed, Routine Potassium Yes 40meq 40 mEq, NPI: 183 Bicarb-Citr 9-14 Oral, [id number] ic Acid 14:00: DAILY, (EFFER-K) 00 First dose effervescen on e t tablet 40 12/04/20 at mEq 0900, Until Discontinu ed, Routine prazosin Yes 1mg 1 mg, NPI:183 (MINIPRES) -14 Oral, QHS, 131 8781 capsule 1 02:00: First dose mg 00 on Thu12/03/20 at 2100, Until Discontinu ed, Routine prazosin Yes 1mg 1 mg, NPI:183 (MINIPRES) -14 Oral, QHS, 131 8781 capsule 1 02:00: First dose mg 00 on Thu12/03/20 at 2100, Until Discontinu ed, Routine vitamin 2020- No [id number] 1000ug Take 1 N PI:183 B-12 1,000 -14 10-15 tablet by 131 8781 mcg tablet 00:00: 04:59 mouth 00 :00 daily for 30 days. vitamin 2020-2020- No [id number] 1000ug Take 1 N PI: B-12 1,000 -14 10-15 tablet by 131 8781 mcg tablet 00:00: 04:59 mouth 00 :00 daily for 30 days. gadoteridol 2020- No [id number] .2mL/kg 11.8 mL NPI:183 (PROHANCE-1 12-03 (0.2 mL/kg 1 635611 5 mL) 17:00: 17:00 ?59 kg), injection 00 :00 Intravenou 11.8 mL s, ONCE, 1 dose, On Thu12/03/20 at 1200, Routine gadoteridol 2020- No [id number] .2mL/kg 11.8 mL NPI:183 (PROHANCE-1 12-03 (0.2 mL/kg 1 542927 5 mL) 17:00: 17:00 ?59 kg), injection 00 :00 Intravenou 11.8 mL s, ONCE, 1 dose, On Thu12/03/20 at 1200, Routine vitamin Yes 1000ug 1,000 mcg, [employer] I:183 B-12 12-03 Oral, [id number] (CYANOCOBAL 14:00: DAILY, RAM) 00 First dose tablet on Mon 1,000 mcg 12/03/20 at 0900, Until Discontinu ed, Routine pantoprazol Yes 40mg 40 mg, NPI: 183 e 12-03 Oral, [id number] (PROTONIX) 14:00: DAILY, EC tablet 00 First dose 40 mg on Thu12/03/20 at 0900, Until Discontinu ed, Routine vitamin Yes 1000ug 1,000 mcg, [employer] I:183 B-12 12-03 Oral, [id number] (CYANOCOBAL 14:00: DAILY, RAM) 00 First dose tablet on Thu 1,000 mcg 12/03/20 at 0900, Until Discontinu ed, Routine pantoprazol Yes 40mg 40 mg, NPI: 183 e 12-03 Oral, [id number] (PROTONIX) 14:00: DAILY, EC tablet 00 First dose 40 mg on Thu12/03/20 at 0900, Until Discontinu ed, Routine potassium 2020- No 20meq 20 mEq, IV NPI:183 chloride 20 12-03 Piggyback, 1 184399 mEq/100 mL 13:00: 16:59 Q2H, 2 (KCL) 20 00 :00 doses, mEq/100 mL First dose RTU IVPB 20 on Thu mEq 12/03/20 at 0800, Last dose on Thu12/03/20 at 1000, 100 mL potassium 2020- No 20meq 20 mEq, IV NPI:183 chloride 20 12-03 Piggyback, 1 201077 mEq/100 mL 13:00: 16:59 Q2H, 2 (KCL) 20 00 :00 doses, mEq/100 mL First dose RTU IVPB 20 on Thu mEq 12/03/20 at 0800, Last dose on Thu12/03/20 at 1000, 100 mL ciprofloxac 2020- No [id number] 500mg Take 1 NPI:183 in HCl 500 12-03 tablet by 131 8781 mg tablet 00:00: 04:59 mouth 00 :00 every 12 (twelve) hours for 7 days. ciprofloxac 2020- No [id number] 500mg Take 1 NPI:183 in HCl 500 12-03 tablet by 131 8781 mg tablet 00:00: 04:59 mouth 00 :00 every 12 (twelve) hours for 7 days. enoxaparin Yes 40mg 40 mg, NPI:1 83 (LOVENOX) 12-02 Subcutaneo 1318 781 injection 22:00: us, DAILY, 40 mg 00 First dose on 12/02/20 at 1700, Until Discontinu ed, Routine enoxaparin Yes 40mg 40 mg, NPI:1 83 (LOVENOX) 12-02 Subcutaneo 1318 781 injection 22:00: us, DAILY, 40 mg 00 First dose on 12/02/20 at 1700, Until Discontinu ed, Routine gadoteridol 2020- No [id number] .2mL/kg 11.8 mL NPI:183 (PROHANCE-1 12-02 (0.2 mL/kg 1 487542 5 mL) 17:45: 17:45 ?59 kg), injection 00 :00 Intravenou 11.8 mL s, ONCE, 1 dose, On 12/02/20 at 1245, Routine gadoteridol 2020- No [id number] .2mL/kg 11.8 mL NPI:183 (PROHANCE-1 12-02 (0.2 mL/kg 1 391284 5 mL) 17:45: 17:45 ?59 kg), injection 00 :00 Intravenou 11.8 mL s, ONCE, 1 dose, On Thu12/02/20 at 1245, Routine cefTRIAXone Yes 1000mg 1,000 mg, NPI:183 (ROCEPHIN) 12-02 IV [id number] 1,000 mg in 16:30: Piggyback, NaCl 0.9% 00 Q24H ABX, (NS) 50 mL First dose MINI-BAG on 12/02/20 at 1130, Until Discontinu ed, Administer over 30 Minutes, 50 mL
Reas on for Anti-Infec tive: Documented Infection< br>Documen carole Infection Site: Urine
D uration of Therapy: 7 days cefTRIAXone Yes 1000mg 1,000 mg, NPI:183 (ROCEPHIN) 9-12 IV [id number] 1,000 mg in 16:30: Piggyback, NaCl 0.9% 00 Q24H ABX, (NS) 50 mL First dose MINI-BAG on 12/02/20 at 1130, Until Discontinu ed, Administer over 30 Minutes, 50 mL
Reas on for Anti-Infec tive: Documented Infection< br>Documen carole Infection Site: Urine
D uration of Therapy: 7 days NaCl 0.9% 2020-0 Yes 1000mL at 50 NPI:1 83 (NS) IV 9-12 mL/hr, IV [id number] infusion 15:30: Infusion, 1,000 mL 00 CONTINUOUS , Starting on 12/02/20 at 1030, Until Discontinu ed, Routine NaCl 0.9% 2020-0 Yes 1000mL at 50 NPI:1 83 (NS) IV 9-12 mL/hr, IV [id number] infusion 15:30: Infusion, 1,000 mL 00 CONTINUOUS , Starting on 12/02/20 at 1030, Until Discontinu ed, Routine acetaminoph 2020-0 Yes 650mg 650 mg, [employer] I:183 en 9-12 Oral, [id number] (TYLENOL) 15:19: Q6HPRN, tablet 650 42 Starting mg on 12/02/20 at 1019, Until Discontinu ed, Routine, Pain (scale 4-6) docusate 2020-0 Yes 100mg 100 mg, NPI:1 83 (COLACE) 9-12 Oral, [id number] capsule 100 15:19: QDAILYPRN, mg 42 Starting on 12/02/20 at 1019, Until Discontinu ed, Routine, Constipati on acetaminoph 2020-0 Yes 650mg 650 mg, [employer] I:183 en 9-12 Oral, [id number] (TYLENOL) 15:19: Q6HPRN, tablet 650 42 Starting mg on 12/02/20 at 1019, Until Discontinu ed, Routine, Pain (scale 4-6) docusate 2020-0 Yes 100mg 100 mg, NPI:1 83 (COLACE) 9-12 Oral, [id number] capsule 100 15:19: QDAILYPRN, mg 42 Starting on 12/02/20 at 1019, Until Discontinu ed, Routine, Constipati on midazolam 2021-0 2021- No 1mg 1 mg, IV NPI :183 (VERSED) 12-02 Push, [id number] injection 1 11:15: 10:15 ONCE, 1 mg 00 :00 dose, [place] 12/02/20 at 0615, STAT midazolam 2021-0 2021- No 1mg 1 mg, IV NPI :183 (VERSED) 12-02 Push, [id number] injection 1 11:15: 10:15 ONCE, 1 mg 00 :00 dose, [place] 12/02/20 at 0615, STAT midazolam 2020-0 202- No 1mg 1 mg, IV NPI :183 (VERSED) 12-02 Push, [id number] injection 1 10:45: 09:30 ONCE, 1 mg 00 :00 dose, [place] 12/02/20 at 0545, STAT midazolam 2020-0 202- No 1mg 1 mg, IV NPI :183 (VERSED) 12-02 Push, [id number] injection 1 10:45: 09:30 ONCE, 1 mg 00 :00 dose, [place] 12/02/20 at 0545, STAT NaCl 0.9% 2020-0 Yes 1000mL at 125 NPI: 183 (NS) IV 9-12 mL/hr, IV [id number] infusion 10:00: Infusion, 1,000 mL 00 CONTINUOUS , Starting 12/02/20 at 0500, Until Discontinu ed, Routine NaCl 0.9% 2020-0 Yes 1000mL at 125 NPI: 183 (NS) IV 9-12 mL/hr, IV [id number] infusion 10:00: Infusion, 1,000 mL 00 CONTINUOUS , Starting 12/02/20 at 0500, Until Discontinu ed, Routine ondansetron 2020-0 Yes 4mg 4 mg, Slow NPI:183 (ZOFRAN 9-12 IV Push, [id number] (PF)) 09:52: Q6HPRN, injection 4 57 Starting mg [place] 12/02/20 at 0452, Until Discontinu ed, Routine, Nausea and Vomiting (N/V) ondansetron 1-0 Yes 4mg 4 mg, Slow NPI:183 (ZOFRAN 9-12 IV Push, [id number] (PF)) 09:52: Q6HPRN, injection 4 57 Starting mg [place] 12/02/20 at 0452, Until Discontinu ed, Routine, Nausea and Vomiting (N/V) acetaminoph 2020-0 Yes 650mg 650 mg, [employer] I:183 en 12-02 Oral, [id number] (TYLENOL) 09:52: Q6HPRN, tablet 650 44 Starting mg 12/02/20 at 0452, Until Discontinu ed, Routine, Pain (scale 1-3), Temp > 38.5 C acetaminoph 2020-0 Yes 650mg 650 mg, HAND D[employer] I:183 en 12-02 Oral, [id number] (TYLENOL) 09:52: Q6HPRN, tablet 650 44 Starting mg [place] 12/02/20 at 0452, Until Discontinu ed, Routine, Pain (scale 1-3), Temp > 38.5 C NaCl 0.9% 2020- No 1000mL at 999 NPI :183 (NS) bolus 12-02 mL/hr, [id number] 1 infusion 09:00: 10:23 1,000 mL, 1,000 mL 00 :00 IV Piggyback, ONCE, 1 dose, [place] 12/02/20 at 0400, STAT NaCl 0.9% 2020- No 1000mL at 999 NPI :183 (NS) bolus 12-02 mL/hr, [id number] 1 infusion 09:00: 10:23 1,000 mL, 1,000 mL 00 :00 IV Piggyback, ONCE, 1 dose, [place] 12/02/20 at 0400, STAT cefTRIAXone 2020-2020- No 1000mg 1,000 mg, NPI:183 (ROCEPHIN) 12-02 IV [id number] 1,000 mg in 08:45: 08:24 Piggyback, NaCl 0.9% 00 :00 ONCE, 1 (NS) 50 mL dose, [place] MINI-BAG 12/02/20 at 0345, Administer over 30 Minutes, 50 mL
R fabio for Anti-Infec tive: Documented Infection< br>Documen carole Infection Site: Urine
D uration of Therapy: 7 days cefTRIAXone 2020-0 2020- No 1000mg 1,000 mg, NPI:183 (ROCEPHIN) 12-02 IV [id number] 1,000 mg in 08:45: 08:24 Piggyback, NaCl 0.9% 00 :00 ONCE, 1 (NS) 50 mL dose, [place] MINI-BAG 12/02/20 at 0345, Administer over 30 Minutes, 50 mL
R fabio for Anti-Infec tive: Documented Infection< br>Documen carole Infection Site: Urine
D uration of Therapy: 7 days midazolam 2020-0 2020- No 1mg 1 mg, IV NPI :183 (VERSED) 12-02 Push, [id number] injection 1 07:15: 06:42 ONCE, 1 mg 00 :00 dose, [place] 12/02/20 at 0215, STAT midazolam 2020-0 2020- No 1mg 1 mg, IV NPI :183 (VERSED) 12-02 Push, [id number] injection 1 07:15: 06:42 ONCE, 1 mg 00 :00 dose, [place] 12/02/20 at 0215, STAT NaCl 0.9% 2020- No 500mL at 999 NPI: 183 (NS) bolus 12-02 mL/hr, 500 13 [id number] infusion 07:00: 07:12 mL, IV 500 mL 00 :00 Piggyback, ONCE, 1 dose, [place] 12/02/20 at 0200, STAT NaCl 0.9% 2020- No 500mL at 999 NPI: 183 (NS) bolus 12-02 mL/hr, 500 13 [id number] infusion 07:00: 07:12 mL, IV 500 mL 00 :00 Piggyback, ONCE, 1 dose, [place] 12/02/20 at 0200, STAT cefTRIAXone 2020-2020- No 1000mg 1,000 mg, NPI:183 (ROCEPHIN) 11-30 IV [id number] 1,000 mg in 07:30: 07:03 Piggyback, NaCl 0.9% 00 :00 ONCE, 1 (NS) 50 mL dose, [facility] MINI-BAG 11/30/20 at 0230, Administer over 30 Minutes, 50 mL
R fabio for Anti-Infec tive: Documented Infection< br>Documen carole Infection Site: Urine
D uration of Therapy: Other (see Comments) cefTRIAXone 2020- No 1000mg 1,000 mg, NPI:183 (ROCEPHIN) 11-30 IV [id number] 1,000 mg in 07:30: 07:03 Piggyback, NaCl 0.9% 00 :00 ONCE, 1 (NS) 50 mL dose, Fri MINI-BAG 11/30/20 at 0230, Administer over 30 Minutes, 50 mL
R fabio for Anti-Infec tive: Documented Infection< br>Documen carole Infection Site: Urine
D uration of Therapy: Other (see Comments) Nitrofurant Yes [id number] 100mg Take 1 NPI:183 oin&Nit. 9-10 [place] [id number] Macrocryst 00:00: mouth 2 (MACROBID) 00 (two) 100 mg times capsule daily. Nitrofurant Yes [id number] 100mg Take 1 NPI:183 oin&Nit. 9-[place] [id number] Macrocryst 00:00: mouth 2 (MACROBID) 00 (two) 100 mg times capsule daily. Nitrofurant Yes [id number] 100mg Take 1 NPI:183 oin&Nit. 9-10 [place] [id number] Macrocryst 00:00: mouth 2 (MACROBID) 00 (two) 100 mg times capsule daily. Nitrofurant Yes [id number] 100mg Take 1 NPI:183 oin&Nit. 9-10 capsule [place] [id number] Macrocryst 00:00: mouth 2 (MACROBID) 00 (two) 100 mg times capsule daily. Nitrofurant Yes [id number] 100mg Take 1 NPI:183 oin&Nit. 9-[place] [id number] Macrocryst 00:00: mouth 2 (MACROBID) 00 (two) 100 mg times capsule daily. Nitrofurant Yes [id number] 100mg Take 1 NPI:183 oin&Nit. 9-[place] [id number] Macrocryst 00:00: mouth 2 (MACROBID) 00 (two) 100 mg times capsule daily. Nitrofurant Yes [id number] 100mg Take 1 NPI:183 oin&Nit. 9-[place] [id number] Macrocryst 00:00: mouth 2 (MACROBID) 00 (two) 100 mg times capsule daily. HYDROcodone 2019-0 2019- No 1{tbl} 1 tablet, NPI:183 -acetaminop 3-08 03-08 Oral, [id number] 1 hen (NORCO 06:45: 05:37 ONCE, 1 5) 5-325 mg 00 :00 dose, Sun tablet 1 05/29/19 at tablet 0045, CHEN hydrocortis 2016-0 Yes Apply to N PI:183 one 1 % 3-11 affected [id number] cream 00:00: area(s) 00 daily. hydrocortis 2016-0 Yes Apply to N PI:183 one 1 % 3-11 affected [id number] cream 00:00: area(s) 00 daily. hydrocortis 2016-0 Yes Apply to N PI:183 one 1 % 3-11 affected [id number] cream 00:00: area(s) 00 daily. hydrocortis 2016-0 Yes Apply to N PI:183 one 1 % 3-11 affected [id number] cream 00:00: area(s) 00 daily. hydrocortis 2016-0 Yes Apply to N PI:183 one 1 % 3-11 affected [id number] cream 00:00: area(s) 00 daily. hydrocortis 2016-0 Yes Apply to N PI:183 one 1 % 3-11 affected [id number] cream 00:00: area(s) 00 daily. hydrocortis 2016-0 Yes Apply to N PI:183 one 1 % 3-11 affected [id number] cream 00:00: area(s) 00 daily. hydrocortis 2016-0 Yes Apply to N PI:183 one 1 % 3-11 affected [id number] cream 00:00: area(s) 00 daily. hydrocortis 2016-0 Yes Apply to N PI:183 one 1 % 3-11 affected [id number] cream 00:00: area(s) 00 daily. hydrocortis 2016-0 Yes Apply to N PI:183 one 1 % 3-11 affected [id number] cream 00:00: area(s) 00 daily. crotamiton 2016-0 Yes [id number] After warm NPI:183 (EURAX) 10 3-08 bath apply 131 8781 % lotion 00:00: lotion to 00 entire body excluding face and scalp. Repeat in 24 hours. cetirizine 2016-0 Yes [id number] 10mg Take 1 Tab NPI:183 (ZYRTEC) 10 3-08 by mouth 1318 781 mg tablet 00:00: at bedtime 00 as needed for Other (itching). crotamiton 2016-0 Yes [id number] After warm NPI:183 (EURAX) 10 3-08 bath apply 131 8781 % lotion 00:00: lotion to 00 entire body excluding face and scalp. Repeat in 24 hours. cetirizine 2016-0 Yes [id number] 10mg Take 1 Tab NPI:183 (ZYRTEC) 10 3-08 by mouth 1318 781 mg tablet 00:00: at bedtime 00 as needed for Other (itching). crotamiton 2016-0 Yes [id number] After warm NPI:183 (EURAX) 10 3-08 bath apply 131 8781 % lotion 00:00: lotion to 00 entire body excluding face and scalp. Repeat in 24 hours. cetirizine 2016-0 Yes [id number] 10mg Take 1 Tab NPI:183 (ZYRTEC) 10 3-08 by mouth 1318 781 mg tablet 00:00: at bedtime 00 as needed for Other (itching). crotamiton 2016-0 Yes [id number] After warm NPI:183 (EURAX) 10 3-08 bath apply 131 8781 % lotion 00:00: lotion to 00 entire body excluding face and scalp. Repeat in 24 hours. cetirizine 2016-0 Yes [id number] 10mg Take 1 Tab NPI:183 (ZYRTEC) 10 3-08 by mouth 1318 781 mg tablet 00:00: at bedtime 00 as needed for Other (itching). crotamiton 2016-0 Yes [id number] After warm NPI:183 (EURAX) 10 3-08 bath apply 131 8781 % lotion 00:00: lotion to 00 entire body excluding face and scalp. Repeat in 24 hours. cetirizine 2016-0 Yes [id number] 10mg Take 1 Tab NPI:183 (ZYRTEC) 10 3-08 by mouth 1318 781 mg tablet 00:00: at bedtime 00 as needed for Other (itching). crotamiton 2016-0 Yes [id number] After warm NPI:183 (EURAX) 10 3-08 bath apply 131 8781 % lotion 00:00: lotion to 00 entire body excluding face and scalp. Repeat in 24 hours. cetirizine 2016-0 Yes [id number] 10mg Take 1 Tab NPI:183 (ZYRTEC) 10 3-08 by mouth 1318 781 mg tablet 00:00: at bedtime 00 as needed for Other (itching). crotamiton 2016-0 Yes [id number] After warm NPI:183 (EURAX) 10 3-08 bath apply 131 8781 % lotion 00:00: lotion to 00 entire body excluding face and scalp. Repeat in 24 hours. cetirizine 2015-0 Yes [id number] 10mg Take 1 Tab NPI:183 (ZYRTEC) 10 3-08 by mouth 1318 781 mg tablet 00:00: at bedtime 00 as needed for Other (itching). crotamiton 2015-0 Yes [id number] After warm NPI:183 (EURAX) 10 3-08 bath apply 131 8781 % lotion 00:00: lotion to 00 entire body excluding face and scalp. Repeat in 24 hours. cetirizine 2016-0 Yes [id number] 10mg Take 1 Tab NPI:183 (ZYRTEC) 10 3-08 by mouth 1318 781 mg tablet 00:00: at bedtime 00 as needed for Other (itching). crotamiton 2016-0 Yes [id number] After warm NPI:183 (EURAX) 10 3-08 bath apply 131 8781 % lotion 00:00: lotion to 00 entire body excluding face and scalp. Repeat in 24 hours. cetirizine 2016-0 Yes [id number] 10mg Take 1 Tab NPI:183 (ZYRTEC) 10 3-08 by mouth 1318 781 mg tablet 00:00: at bedtime 00 as needed for Other (itching). crotamiton 2016-0 Yes [id number] After warm NPI:183 (EURAX) 10 3-08 bath apply 131 8781 % lotion 00:00: lotion to 00 entire body excluding face and scalp. Repeat in 24 hours. cetirizine Yes [id number] 10mg Take 1 Tab NPI:183 (ZYRTEC) 10 3-08 by mouth 1318 781 mg tablet 00:00: at bedtime 00 as needed for Other (itching). albuterol Yes 1{puff} Inhale 1-2 NPI:183 (PROAIR 7-17 Puffs [id number] HFA) 90 00:00: every 6 mcg/actuati 00 (six) on inhaler hours as needed for Wheezing or Shortness of Breath. albuterol Yes 1{puff} Inhale 1-2 NPI:183 (PROAIR 7-17 Puffs [id number] HFA) 90 00:00: every 6 mcg/actuati 00 (six) on inhaler hours as needed for Wheezing or Shortness of Breath. albuterol Yes 1{puff} Inhale 1-2 NPI:183 (PROAIR 7-17 Puffs [id number] HFA) 90 00:00: every 6 mcg/actuati 00 (six) on inhaler hours as needed for Wheezing or Shortness of Breath. albuterol Yes 1{puff} Inhale 1-2 NPI:183 (PROAIR 7-17 Puffs [id number] HFA) 90 00:00: every 6 mcg/actuati 00 (six) on inhaler hours as needed for Wheezing or Shortness of Breath. albuterol Yes 1{puff} Inhale 1-2 NPI:183 (PROAIR 7-17 Puffs [id number] HFA) 90 00:00: every 6 mcg/actuati 00 (six) on inhaler hours as needed for Wheezing or Shortness of Breath. albuterol Yes 1{puff} Inhale 1-2 NPI:183 (PROAIR 7-17 Puffs [id number] HFA) 90 00:00: every 6 mcg/actuati 00 (six) on inhaler hours as needed for Wheezing or Shortness of Breath. albuterol Yes 1{puff} Inhale 1-2 NPI:183 (PROAIR 7-17 Puffs [id number] HFA) 90 00:00: every 6 mcg/actuati 00 (six) on inhaler hours as needed for Wheezing or Shortness of Breath. albuterol Yes 1{puff} Inhale 1-2 NPI:183 (PROAIR 7-17 Puffs [id number] HFA) 90 00:00: every 6 mcg/actuati 00 (six) on inhaler hours as needed for Wheezing or Shortness of Breath. albuterol Yes 1{puff} Inhale 1-2 NPI:183 (PROAIR 7-17 Puffs [id number] HFA) 90 00:00: every 6 mcg/actuati 00 (six) on inhaler hours as needed for Wheezing or Shortness of Breath. albuterol Yes 1{puff} Inhale 1-2 NPI:183 (PROAIR 7-17 Puffs [id number] HFA) 90 00:00: every 6 mcg/actuati 00 (six) on inhaler hours as needed for Wheezing or Shortness of Breath. Immunizations Ordered Immunization Filled Immunization Date Status Commen ts Source Name Name HPV9 2015-05-17 Completed 00:00:00 HPV9 2015-05-17 Completed 00:00:00 HPV9 2015-05-17 Completed 00:00:00 HPV9 2015-05-17 Completed 00:00:00 HPV9 2015-05-17 Completed 00:00:00 HPV9 2015-05-17 Completed 00:00:00 HPV9 2015-05-17 Completed 00:00:00 HPV9 2015-05-17 Completed 00:00:00 HPV9 2015-05-17 Completed 00:00:00 HPV9 2015-05-17 Completed 00:00:00 Varicella 2015-01-16 Completed (varivax)(chicken 00:00:00 pox) Varicella 2015-01-16 Completed (varivax)(chicken 00:00:00 pox) Varicella 2015-01-16 Completed (varivax)(chicken 00:00:00 pox) Varicella 2015-01-16 Completed (varivax)(chicken 00:00:00 pox) Varicella 2015-01-16 Completed (varivax)(chicken 00:00:00 pox) Varicella 2015-01-16 Completed (varivax)(chicken 00:00:00 pox) Varicella 2015-01-16 Completed (varivax)(chicken 00:00:00 pox) Varicella 2015-01-16 Completed (varivax)(chicken 00:00:00 pox) Varicella 2015-01-16 Completed (varivax)(chicken 00:00:00 pox) Varicella 2015-01-16 Completed (varivax)(chicken 00:00:00 pox) Influenza Virus 2014-12-27 Completed NPI:[id number] Vaccine Quad IM 3+ 00:00:00 YRS Influenza Virus 2014-12-27 Completed NPI:[id number] Vaccine Quad IM 3+ 00:00:00 YRS Influenza Virus 2014-12-27 Completed NPI:[id number] Vaccine Quad IM 3+ 00:00:00 YRS Influenza Virus 2014-12-27 Completed NPI:[id number] Vaccine Quad IM 3+ 00:00:00 YRS Influenza Virus 2014-12-27 Completed NPI:[id number] [id number] Vaccine Quad IM 3+ 00:00:00 YRS Influenza Virus 2014-12-27 Completed NPI:[id number] [id number] Vaccine Quad IM 3+ 00:00:00 YRS Influenza Virus 2014-12-27 Completed NPI:[id number] Vaccine Quad IM 3+ 00:00:00 YRS Influenza Virus 2014-12-27 Completed NPI:[id number] Vaccine Quad IM 3+ 00:00:00 YRS Influenza Virus 2014-12-27 Completed NPI:[id number] Vaccine Quad IM 3+ 00:00:00 YRS Influenza Virus 2014-12-27 Completed NPI:[id number] [id number] Vaccine Quad IM 3+ 00:00:00 YRS Vital Signs Vital Name Observation Time Observation Value Comments Source Systolic blood pressure 2020-12-04 12:43:00 118 mm[Hg] Diastolic blood 2020-12-04 12:43:00 65 mm[Hg] NPI:1 [id number] pressure Heart rate 2020-12-04 12:43:00 69 /min NPI:1831 [id number] Body temperature 2020-12-04 12:43:00 36.5 Latoya Respiratory rate 2020-12-04 12:43:00 15 /min Oxygen saturation in 2020-12-04 12:43:00 97 /min Arterial blood by Pulse oximetry Body height 2020-12-02 23:01:00 162.6 cm NPI:1831 [id number] Body weight 2020-12-02 23:01:00 58.968 kg NPI:1831 [id number] BMI 2020-12-02 23:01:00 22.31 kg/m2 NPI:1831 [id number] Body mass index (BMI) 2020-12-02 23:01:00 58.99 % [Percentile] Per age and sex Systolic blood pressure 2020-12-02 11:00:00 104 mm[Hg] Diastolic blood 2020-12-02 11:00:00 71 mm[Hg] NPI:1 [id number] pressure Heart rate 2020-12-02 11:00:00 74 /min NPI:1831 192417 Respiratory rate 2020-12-02 11:00:00 18 /min Oxygen saturation in 2020-12-02 11:00:00 98 /min Arterial blood by Pulse oximetry Body temperature 2020-12-02 05:55:00 36.44 Latoya Body height 2020-12-02 05:55:00 162.6 cm NPI:1831 [id number] Body weight 2020-12-02 05:55:00 58.968 kg NPI:1831 [id number] BMI 2020-12-02 05:55:00 22.31 kg/m2 NPI:1831 [id number] Systolic blood pressure 2020-11-30 08:00:00 100 mm[Hg] Diastolic blood 2020-11-30 08:00:00 66 mm[Hg] NPI:1 [id number] pressure Heart rate 2020-11-30 08:00:00 55 /min NPI:1831 [id number] Respiratory rate 2020-11-30 08:00:00 14 /min Oxygen saturation in 2020-11-30 08:00:00 100 /min Arterial blood by Pulse oximetry Body height 2020-11-30 05:22:00 162.6 cm NPI:1831 [id number] Body weight 2020-11-30 05:22:00 58.968 kg NPI:1831 [id number] BMI 2020-11-30 05:22:00 22.31 kg/m2 NPI:1831 [id number] Body temperature 2020-11-30 05:10:00 36.44 Latoya Body temperature 2019-05-29 05:43:00 36.61 Latoya Systolic blood pressure 2019-05-29 04:50:00 118 mm[Hg] Diastolic blood 2019-05-29 04:50:00 86 mm[Hg] NPI:1 [id number] pressure Heart rate 2019-05-29 04:50:00 61 /min NPI:1831 [id number] Respiratory rate 2019-05-29 04:50:00 18 /min Oxygen saturation in 2019-05-29 04:50:00 99 /min Arterial blood by Pulse oximetry Body weight 2019-05-29 02:56:37 70.308 kg NPI:1831 [id number] Body temperature 2019-05-29 05:43:00 36.61 Latoya Systolic blood pressure 2019-05-29 04:50:00 118 mm[Hg] Diastolic blood 2019-05-29 04:50:00 86 mm[Hg] NPI:1 [id number] pressure Heart rate 2019-05-29 04:50:00 61 /min NPI:1831 [id number] Respiratory rate 2019-05-29 04:50:00 18 /min Oxygen saturation in 2019-05-29 04:50:00 99 /min Arterial blood by Pulse oximetry Body weight 2019-05-29 02:56:37 70.308 kg NPI:1831 [id number] Procedures Procedure Date / Time Performing Clinician Source Performed MR BRAIN W WO CONTRAST 2020-12-03 16:44:59 Marquez Philippe NPI:1 [id number] [facility] ONLY - SYPHILIS IGG/IGM 2020-12-03 09:57:00 Marquez Philippe ELECTROENCEPHALOGRAM 2020-12-03 00:00:00 Marquez Philippe NPI:897 [id number] MR LUMBAR SPINE W WO CONTRAST 2020-12-02 17:43:[address] LUMBAR SPINE WO CONTRAST 2020-12-02 16:47:15 Luis Philippeis PHOSPHORUS 2020-12-02 16:10:00 Marquez Philippe NPI:[id number] CREATINE KINASE 2020-12-02 16:10:00 ToyajayantMarquez NPI:[id number] MAGNESIUM 2020-12-02 16:10:00 ToyaMarquez saba NPI:[id number] VITAMIN B12, LEVEL 2020-12-02 16:10:00 Marquez Philippe NPI:[id number] FOLATE 2020-12-02 16:10:00 Toyajayant Marquez NPI:[id number] 81 BASIC METABOLIC PANEL (NA, K, 2020-12-02 16:10:00 Marquez Philippe CL, CO2, GLUCOSE, BUN, CREATININE, CA) CBC WITH DIFF 2020-12-02 16:10:00 Marquez Philippe NPI:[id number] HIV 1/2 AG-AB WITH REFLEX 2020-12-02 16:10:00 Marquez Philippe 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 METABOLIC PANEL (86464) 2020-12-02 07:13:00 Jermain Ghosh THYROID STIMULATING HORMONE 2020-12-02 07:13:00 Marquez Philippe POCT TEST 2020-12-02 06:36:00 Jermain Ghosh NPI:[id number] COVID-19 (ID NOW RAPID TESTING) 2020-12-02 06:35:00 Peter Ghosh URINE DRUG (IMMUNOASSAY) - 2020-12-02 06:32:00 Sj Jermain N PI:[id number] COMPREHENSIVE DRUG SCREEN W/O REFLEX URINALYSIS 2020-12-02 06:31:00 Michelle Ghoshith NPI:[id number] 81 CBC WITH DIFF 2020-12-02 06:15:00 BarryJermain gonzales NPI:[id number] 81 LACTIC ACID WHOLE BLOOD 2020-12-02 06:14:00 Michelle Ghoshith NOTICE OF PRIVACY PRACTICES 2020-12-02 05:51:23 Doctor Promise polo, [place] CONSENT/REFUSAL FOR DIAGNOSIS 2020-12-02 05:51:04 Doctor Stanley el, AND TREATMENT [place] CT HEAD WO CONTRAST 2020-11-30 06:48:07 Chauncey Smith NPI:[id number] POCT GLUCOSE(AGE >30DAYS) 2020-11-30 05:31:00 Chauncey Smith PI:[id number] AC PANEL 20 + LACTIC ACID 2020-11-30 05:31:00 Chauncey Smith PI:[id number] POCT GLUCOSE (AUTOMATED) 2020-11-30 05:30:00 Chauncey Smith 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 METABOLIC PANEL (13206) 2020-11-30 05:16:00 Chauncey Smith CBC WITH DIFF 2020-11-30 05:16:00 Chauncey Smith NPI:[id number] CREATINE KINASE 2020-11-30 05:15:00 Chauncey Smith NPI:[id number] NOTICE OF PRIVACY PRACTICES 2020-11-30 05:01:00 Doctor Promise polo, [place] CT HEAD WO CONTRAST 2019-05-29 04:16:04 Alec Rivera NPI:[id number] XR CERVICAL SPINE 3 VW 2019-05-29 04:15:52 Alec Rivera NPI:1 [id number] NOTICE OF PRIVACY PRACTICES 2019-05-29 03:47:53 Doctor Promise polo, [place] CONSENT/REFUSAL FOR DIAGNOSIS 2019-05-29 03:47:41 Doctor Stanley el, AND TREATMENT [place] Encounters Start End Encounter Admission Attending Care Care Encounter Source Date/Time Date/Time Type Type Clinicians Facility Department ID 2021-06-26 Outpatient [facility] [id number] NPI:152 19:37:59 [id number] 2021-01-21 Emergency X [facility] SNS [id number] NPI:183 22:04:01 [id number] 0902-11-01 Emergency [facility] [id number] NPI:183 22:03:07 [id number] 2561-11-01 Emergency [facility] [id number] NPI:183 21:40:40 [id number] 7280-09-17 2020 Outpatient BRADY GOTTLIEB [facility] [id number] NPI:183 15:00:00 15:00:00 BRADY SMITH [id number] 2256-09-17 2020 Outpatient R BRADY SMITH [facility] [id number] NPI:183 15:00:00 15:00:00 BRADY SMITH [id number] 9827-09-12 2020-12-04 Emergency [place] [id number] NPI:183 09:18:00 10:50:00 Lazaro Mckeon 350.1.13.10 1 [id number] [place] [address].2.7.2.686 [id number] 2020-12-02 2020-12-02 Emergency Janine Alvarez [facility] 1.2.840 .114 [id number] NPI:183 00:47:00 09:12:00 Jermain Ghosh 350.1.13.10 [id number] [place] 4.2.7.2.686 [facility] [id number] 2020-12-02 2020-12-02 Outpatient X SJ [facility] [id number] NPI:183 00:47:00 09:12:00 JERMAIN [id number] 2020-11-30 2020-11-30 Emergency [facility] 1.2.379.066 [id number] NPI:183 00:08:00 04:02:00 Chauncey Farrell 350.1.13.[id number]7.2.686 [place] [id number] 084 2020-11-30 2020-11-30 Orders Doctor ILDEFONSO 1.2.840.114 [id number] NPI:183 00:00:00 00:00:00 Only UnassJOSE ayoub 350.1.13.[id number]686 [id number] [id number] 2019-06-15 2019-06-15 Outpatient R [facility] [id number] NPI:183 10:00:00 10:00:00 [id number] 2019-06-15 2019-06-15 Outpatient R [facility] [id number] NPI:183 10:00:00 10:00:00 [id number] 2019-06-15 2019-06-15 Outpatient R [facility] [id number] NPI:183 10:00:00 10:00:00 [id number] 1 2019-06-15 2019-06-15 Telephone de [facility] 1.2.840.114 [id number] NPI:183 00:00:00 00:00:00 Marcos Lerma 350.1.13.10 [id number] [facility] 4.2.7.2.686 [facility] [id number] 2019-06-15 2019-06-15 Telephone de [facility] 1.2.840.114 [id number] 00:00:00 00:00:00 Marcos Lerma 350.1.13.10 [facility] 4.2.7.2.686 [place] [address] [id number] 225 2019-06-14 2019-06-14 Outpatient R [facility] [id number] NPI:183 14:40:00 14:40:00 [id number] 2019-06-14 2019-06-14 Outpatient R [facility] [id number] NPI:183 14:40:00 14:40:00 [id number] 1 2019-05-28 2019-05-28 Emergency [facility] 1.2.346.262 [id number] NPI:183 20:59:13 23:56:00 Alec Farrell 350.1.13.10 1 214220 [place] 4.2.7.2.686 [place] [address] [id number] 084 2019-05-28 2019-05-28 Emergency X [facility] ERT [id number] NPI:183 20:59:13 23:56:00 ALEC [id number] 1 2019-05-28 2019-05-28 Emergency [facility] 1.2.529.991 [id number] 20:59:13 23:56:00 Juan Alsey 350.1.13.10 [place] 4.2.7.2.686 [place] [address] [id number] 084 2019-05-28 2019-05-28 Orders Doctor FREGOSO 1.2.840.114 [id number] NPI:183 00:00:00 00:00:00 Only UnassignedJOSE 350.1.13.10 [id number] [place] [facility] 4.2.7.2.686 [id number] [id number] 2019-05-28 2019-05-28 Orders Doctor ILDEFONSO 1.2.840.114 [id number] 00:00:00 00:00:00 Only UnassignedJOSE 350.1.13.10 [place] [facility] 4.2.7.2.686 [id number] [id number] Results Test Description Test Time Test Comments Results Result Comments Source [facility] ONLY - SYPHILIS IGG/IGM 2020-12-03 15:29:02 Test Item Value Reference Range Interpretation Comme nts Syphilis IgG/IgM (test code = Non-reactive Non-reactive 12054-8) VIRIDIANA (test code = VIRIDIANA) Non-reactive - No serologic evidence of T. pallidum infection. Cannot exclude incubating or early syphilis. Submit a second specimen in 2-4 weeks if syphilis is clinically suspected. Equivocal - Further testing to follow. Reactive - Further testing to follow. Lab Interpretation (test code = Normal 54080-9) NPI:[id number] ONLY - SYPHILIS IGG/[id number] 15:29:02 Test Item Value Reference Range Interpretation Comments Syphilis IgG/IgM (test Non-reactive Non-reactive code = 78484-3) VIRIDIANA (test code = VIRIDIANA) Non-reactive - No serologic evidence of T. pallidum infection. Cannot exclude incubating or early syphilis. Submit a second specimen in 2-4 weeks if syphilis is clinically suspected. Equivocal - Further testing to follow. Reactive - Further testing to follow. Lab Interpretation (test Normal code = 45344-5) NPI:[id number] B12, [id number] 23:31:33 Test Item Value Reference Range Interpretation Comments VIT B12 (test code = 367 pg/mL 240-930 0118824033) VIRIDIANA (test code = VIRIDIANA) Biotin has been reported to cause a positive bias, interpret results relative to patient's use of biotin. Lab Interpretation (test Normal code = 85449-4) NPI:[id number] B12, [id number] 23:31:33 Test Item Value Reference Range Interpretation Comments VIT B12 (test code = 367 pg/mL 240-930 1600074524) VIRIDIANA (test code = VIRIDIANA) Biotin has been reported to cause a positive bias, interpret results relative to patient's use of biotin. Lab Interpretation (test Normal code = 51874-2) NPI:[id number] 1/2 AG-AB WITH [id number] 22:52:15 Test Item Value Reference Range Interpretation Comments HIV Negative Negative Semi-quantitative (test code = 39487-7) VIRIDIANA (test code = Non-reactive for HIV-1 VIRIDIANA) antigen and HIV-1/HIV-2 antibodies. ?No laboratory evidence of HIV infection. ?Repeat in 2-4 weeks if acute HIV infection is suspected. NPI:[id number] 1/2 AG-AB WITH [id number] 22:52:15 Test Item Value Reference Range Interpretation Comments HIV Negative Negative Semi-quantitative (test code = 43433-1) VIRIDIANA (test code = Non-reactive for HIV-1 VIRIDIANA) antigen and HIV-1/HIV-2 antibodies. ?No laboratory evidence of HIV infection. ?Repeat in 2-4 weeks if acute HIV infection is suspected. NPI:[id number] 21:55:01 Test Item Value Reference Range Interpretation Comments FOLATE SER (test code = 10.1 ng/mL 3.0-20.0 1590491356) Lab Interpretation (test code = Normal 75315-4) NPI:[id number] 21:55:01 Test Item Value Reference Range Interpretation Comments FOLATE SER (test code = 10.1 ng/mL 3.0-20.0 6692950140) Lab Interpretation (test code = Normal 59533-0) NPI:[id number] [id number] 20:12:25 Test Item Value Reference Range Interpretation Comments MAGNESIUM (test code = 2401881460) 1.6 mg/dL 1.7-2.4 L Lab Interpretation (test code = Abnormal 26812-3) NPI:[id number] [id number] 20:12:25 Test Item Value Reference Range Interpretation Comments MAGNESIUM (test code = 7440352719) 1.6 mg/dL 1.7-2.4 L Lab Interpretation (test code = Abnormal 87618-7) NPI:[id number] Metabolic Panel (Na, K, Cl, CO2, Glucose, BUN, Creatinine, Ca)2020-12-02 20:12:19 Test Item Value Reference Range Interpretation Comments NA (test code = 144 mmol/L 135-145 5316943593) K (test code = 3.3 mmol/L 3.5-5.0 L 5074532232) CL (test code = 114 mmol/L 98-108 H 2730811854) CO2 TOTAL (test code = 21 mmol/L 23-31 L 0486949781) AGAP (test code = 2-16 7597840541) BUN (test code = 4 mg/dL 7-23 L 7859076418) GLUCOSE (test code = 71 mg/dL 70-110 6547758840) CREATININE (test code = 0.57 mg/dL 0.50-1.04 1869754947) CALCIUM (test code = 7.8 mg/dL 8.6-10.6 L 5694891537) eGFR (test code = mL/min/1.73m2 6578990239) VIRIDIANA (test code = VIRIDIANA) Association of [...] tests). Lab Interpretation Abnormal (test code = 66054-4) NPI:[id number] Metabolic Panel (Na, K, Cl, CO2, Glucose, BUN, Creatinine, Ca)2020-12-02 20:12:19 Test Item Value Reference Range Interpretation Comments NA (test code = 144 mmol/L 135-145 7874188293) K (test code = 3.3 mmol/L 3.5-5.0 L 6948438286) CL (test code = 114 mmol/L 98-108 H 7548414622) CO2 TOTAL (test code = 21 mmol/L 23-31 L 4609056400) AGAP (test code = 2-16 8083384651) BUN (test code = 4 mg/dL 7-23 L 5064869926) GLUCOSE (test code = 71 mg/dL 70-110 0942502382) CREATININE (test code = 0.57 mg/dL 0.50-1.04 4559064632) CALCIUM (test code = 7.8 mg/dL 8.6-10.6 L 6288994003) eGFR (test code = mL/min/1.73m2 6097675079) VIRIDIANA (test code = VIRIDIANA) Association of [...] tests). Lab Interpretation Abnormal (test code = 80614-1) NPI:[id number] [id number] 20:10:53 Test Item Value Reference Range Interpretation Comments PHOSPHORUS (test code = 4002084870) 3.7 mg/dL 2.5-5.0 Lab Interpretation (test code = Normal 75769-0) NPI:[id number] [id number] 20:10:53 Test Item Value Reference Range Interpretation Comments PHOSPHORUS (test code = 9489488745) 3.7 mg/dL 2.5-5.0 Lab Interpretation (test code = Normal 36466-7) NPI:[id number] Kinase (CK)2020-12-02 20:10:47 Test Item Value Reference Range Interpretation Comments CK (test code = 6996989745) 59 U/L 33-194 Lab Interpretation (test code = Normal 39752-4) NPI:[id number] Kinase (CK)2020-12-02 20:10:47 Test Item Value Reference Range Interpretation Comments CK (test code = 5102096892) 59 U/L 33-194 Lab Interpretation (test code = Normal 68697-5) NPI:[id number] with Chocumeuxzyj3994-93-39 20:10:42 Test Item Value Reference Range Interpretation Comments WBC (test code = See_Comment [Automated 7492-2) message] The sy stem which generated this result transmitted reference range : 4.50 - 13.50 10*3/?L. The reference range was not used to interpret this result as normal/abnormal . RBC (test code = See_Comment [Automated 633-4) message] The sy stem which generated this [...] RDW-SD (test code = 41.4 fL 38.5-49.0 88585-8) RDW-CV (test code = 13.2 % 11.5-14.0 788-0) PLT (test code = See_Comment L [Automated 777-3) message] The sy stem which generated this result transmitted reference range : 135 - 361 10*3/ ?L. The reference r lorene was not used to interpret this result as normal/abnormal . MPV (test code = 13.3 fL 9.4-13.3 80073-8) NRBC/100 WBC (test See_Comment [Automat ed code = 7827770393) message] The system which generated this result transmitted reference range : 0.0 - 10.0 /100 WBCs. The refer ence range was not u sed to interpret th is result as normal/abnormal . NRBC x10^3 (test code <0.01 See_Comment [Auto mated = 8647820098) message] The s ystem which generated this result transmitted reference range : 10*3/?L. The reference range was not used to interpret this result as normal/abnormal . GRAN MAT (NEUT) % 48.7 % (test code = 770-8) IMM GRAN % (test code 0.40 % = 9932132692) LYMPH % (test code = 39.4 % 736-9) MONO % (test code = 8.9 % 5905-5) EOS % (test code = 2.2 % 713-8) BASO % (test code = 0.4 % 706-2) GRAN MAT x10^3(ANC) 2.67 10*3/uL 1.50-10.30 (test code = 4377324647) IMM GRAN x10^3 (test <0.03 0.00-0.06 code = 1585310517) LYMPH x10^3 (test code 2.16 10*3/uL 0.70-7.40 = 731-0) MONO x10^3 (test code 0.49 10*3/uL 0.00-0.50 = 742-7) EOS x10^3 (test code = 0.12 10*3/uL 0.00-0.40 711-2) BASO x10^3 (test code <0.03 0.00-0.10 = 704-7) Lab Interpretation Abnormal (test code = 52311-4) NPI:[id number] with Hrrealqwrkdg3894-36-07 20:10:42 Test Item Value Reference Range Interpretation Comments WBC (test code = See_Comment [Automated 8590-2) message] The sy stem which generated this result transmitted reference range : 4.50 - 13.50 10*3/?L. The reference range was not used to interpret this result as normal/abnormal . RBC (test code = See_Comment [Automated 129-8) message] The sy stem which generated this [...] RDW-SD (test code = 41.4 fL 38.5-49.0 55911-5) RDW-CV (test code = 13.2 % 11.5-14.0 788-0) PLT (test code = See_Comment L [Automated 777-3) message] The sy stem which generated this result transmitted reference range : 135 - 361 10*3/ ?L. The reference r lorene was not used to interpret this result as normal/abnormal . MPV (test code = 13.3 fL 9.4-13.3 73176-3) NRBC/100 WBC (test See_Comment [Automat ed code = 5635615039) message] The system which generated this result transmitted reference range : 0.0 - 10.0 /100 WBCs. The refer ence range was not u sed to interpret th is result as normal/abnormal . NRBC x10^3 (test code <0.01 See_Comment [Auto mated = 9635274836) message] The s ystem which generated this result transmitted reference range : 10*3/?L. The reference range was not used to interpret this result as normal/abnormal . GRAN MAT (NEUT) % 48.7 % (test code = 770-8) IMM GRAN % (test code 0.40 % = 5963564505) LYMPH % (test code = 39.4 % 736-9) MONO % (test code = 8.9 % 5905-5) EOS % (test code = 2.2 % 713-8) BASO % (test code = 0.4 % 706-2) GRAN MAT x10^3(ANC) 2.67 10*3/uL 1.50-10.30 (test code = 1990143597) IMM GRAN x10^3 (test <0.03 0.00-0.06 code = 3271873649) LYMPH x10^3 (test code 2.16 10*3/uL 0.70-7.40 = 731-0) MONO x10^3 (test code 0.49 10*3/uL 0.00-0.50 = 742-7) EOS x10^3 (test code = 0.12 10*3/uL 0.00-0.40 711-2) BASO x10^3 (test code <0.03 0.00-0.10 = 704-7) Lab Interpretation Abnormal (test code = 14366-3) NPI:[id number] Stimulating Axwiyal8916-25-48 16:37:32 Test Item Value Reference Range Interpretation Comments TSH (test code = See_Comment Biotin has been 0387394499) reported to cau se a negative bias, interpret resul ts relative to pat ient's use of biotin. [Automated mess age] The system whic h generated this result transmitted ref erence range: 0.45 - 4 .70 mIU/L. The refe rence range was not u sed to interpret this result as normal/abnor mal. Lab Interpretation (test Normal code = 40509-5) NPI:[id number] Stimulating Aoptrhk8517-02-25 16:37:32 Test Item Value Reference Range Interpretation Comments TSH (test code = See_Comment Biotin has been 3279006480) reported to cau se a negative bias, interpret resul ts relative to ines bond's use of biotin. [Automated mess age] The system [employer] generated this result transmitted ref erence range: 0.45 - 4 .70 mIU/L. The refe rence range was not u sed to interpret this result as normal/abnor mal. Lab Interpretation (test Normal code = 52472-3) NPI:[id number] DRUG (IMMUNOASSAY) - COMPREHENSIVE DRUG SCREEN W/O REFLEX 2020-12-02 07:41:34 Test Item Value Reference Range Interpretation Comments AMPHET (test code = Negative Negative 1289775826) FABIO U (test code = Negative Negative 1108461319) BENZO U (test code = Negative Negative 7451870009) Cocaine Metabolite (test Negative Negative code = 0167123148) METHADONE (test code = Negative Negative 7744676714) OPIATES (test code = Negative Negative 2960595662) PCP (test code = Negative Negative 8576561571) THC (test code = Presumptive Positive Negative A 5945979118) VIRIDIANA (test code = VIRIDIANA) Urine Drug [...] testing). Lab Interpretation (test Abnormal code = 83532-5) NPI:[id number] DRUG (IMMUNOASSAY) - COMPREHENSIVE DRUG SCREEN W/O REFLEX 2020-12-02 07:41:34 Test Item Value Reference Range Interpretation Comments AMPHET (test code = Negative Negative 1947440676) FABIO U (test code = Negative Negative 0572624721) BENZO U (test code = Negative Negative 9660495075) Cocaine Metabolite (test Negative Negative code = 2638640577) METHADONE (test code = Negative Negative 4833406822) OPIATES (test code = Negative Negative 9780509605) PCP (test code = Negative Negative 8817329555) THC (test code = Presumptive Positive Negative A 4112945366) VIRIDIANA (test code = VIRIDIANA) Urine Drug [...] testing). Lab Interpretation (test Abnormal code = 32919-6) NPI:[id number]. METABOLIC PANEL (47761)2020-12-02 07:38:37 Test Item Value Reference Range Interpretation Comments NA (test code = 138 mmol/L 135-145 7124747589) K (test code = 3.8 mmol/L 3.5-5.0 2101588963) CL (test code = 108 mmol/L 98-108 4900779011) CO2 TOTAL (test code = 23 mmol/L 23-31 6389655466) AGAP (test code = 2-16 6366366417) BUN (test code = 5 mg/dL 7-23 L 7767808779) GLUCOSE (test code = 93 mg/dL 70-110 1871775742) CREATININE (test code = 0.61 mg/dL 0.50-1.04 8745224787) TOTAL BILI (test code = 0.7 mg/dL 0.1-1.3 0981003069) CALCIUM (test code = 8.6 mg/dL 8.6-10.6 6157879452) T PROTEIN (test code = 6.5 g/dL 6.3-8.2 0235455977) ALBUMIN (test code = 3.9 g/dL 3.5-5.0 7730271259) ALK PHOS (test code = 56 U/L 34-122 9807075849) ALTv (test code = 15 U/L 5-35 1742-6) AST(SGOT) (test code = 28 U/L 13-40 3673760200) eGFR (test code = mL/min/1.73m2 1847552747) VIRIDIANA (test code = VIRIDIANA) Association of [...] tests). Lab Interpretation Abnormal (test code = 77657-0) NPI:[id number]. METABOLIC PANEL (44913)2020-12-02 07:38:37 Test Item Value Reference Range Interpretation Comments NA (test code = 138 mmol/L 135-145 3279993812) K (test code = 3.8 mmol/L 3.5-5.0 9155270137) CL (test code = 108 mmol/L 98-108 9320325534) CO2 TOTAL (test code = 23 mmol/L 23-31 4637377990) AGAP (test code = 2-16 1802817367) BUN (test code = 5 mg/dL 7-23 L 0130749332) GLUCOSE (test code = 93 mg/dL 70-110 7251361657) CREATININE (test code = 0.61 mg/dL 0.50-1.04 4726599730) TOTAL BILI (test code = 0.7 mg/dL 0.1-1.4 9844909326) CALCIUM (test code = 8.6 mg/dL 8.6-10.6 8628614947) T PROTEIN (test code = 6.5 g/dL 6.3-8.2 6456923762) ALBUMIN (test code = 3.9 g/dL 3.5-5.0 8743821831) ALK PHOS (test code = 56 U/L 34-122 2723309282) ALTv (test code = 15 U/L 5-35 1742-6) AST(SGOT) (test code = 28 U/L 13-40 4209567355) eGFR (test code = mL/min/1.73m2 7531391938) VIRIDIANA (test code = VIRIDIANA) Association of [...] tests). Lab Interpretation Abnormal (test code = 49202-3) NPI:[id number] PHTDNJ8716-59-21 07:38:17 Test Item Value Reference Range Interpretation Comments CK (test code = 8165359599) 62 U/L 33-194 Lab Interpretation (test code = Normal 67759-0) NPI:[id number] XBSJKD2461-80-75 07:38:17 Test Item Value Reference Range Interpretation Comments CK (test code = 9414732836) 62 U/L 33-194 Lab Interpretation (test code = Normal 53280-1) NPI:[id number] 07:07:10 Test Item Value Reference Range Interpretation Comments APPEARANCE (test code = Cloudy Clear A 4277875466) COLOR (test code = Yellow Yellow 4613132165) PH (test code = 4.8-8.0 6290779401) SP GRAVITY (test code = 1.003-1.030 7510842633) GLU U QUAL (test code = Normal Normal 0385072136) BLOOD (test code = Negative Negative 3934504598) KETONES (test code = 5 mg/dL Negative A 5569573052) PROTEIN (test code = 100 mg/dL Negative A 2887-8) UROBILIN (test code = 2.0 mg/dL Normal A 4298424821) BILIRUBIN (test code = Negative Negative 4524360653) NITRITE (test code = Negative Negative 4513667290) LEUK DENNIS (test code = 500/uL Negative A 1472716165) RBC/HPF (test code = See_Comment [Autom ated message] 1281955517) The system [employer] generated this result transmit carole reference range : 0 - 3 HPF. The refe rence range was not u sed to interpret th is result as normal/abnormal . WBC/HPF (test code = See_Comment H [Autom ated message] 2617061735) The system [employer] generated this result transmit carole reference range : 0 - 5 HPF. The refe rence range was not u sed to interpret th is result as normal/abnormal . BACTERIA (test code = Many Negative A 3673116742) MUCOUS (test code = Moderate Negative LPF A 1885073967) SQ EPITH (test code = HPF 4943812923) CA OXALATE (test code = See_Comment [Au tomated message] [id number]) The system [employer] generated this result transmit carole reference range : <=1 HPF. The refere nce range was not u sed to interpret th is result as normal/abnormal . HYAL CAST (test code = See_Comment H [Aut omated message] [id number]) The system [employer] generated this result transmit carole reference range : <=2 LPF. The refere nce range was not u sed to interpret th is result as normal/abnormal . Lab Interpretation (test Abnormal code = 01319-6) NPI:[id number] 07:07:10 Test Item Value Reference Range Interpretation Comments APPEARANCE (test code = Cloudy Clear A [id number]) COLOR (test code = Yellow Yellow [id number]) PH (test code = 4.8-8.0 2133187338) SP GRAVITY (test code = 1.003-1.030 5104571533) GLU U QUAL (test code = Normal Normal 4265407561) BLOOD (test code = Negative Negative 9710841602) KETONES (test code = 5 mg/dL Negative A 4809786340) PROTEIN (test code = 100 mg/dL Negative A 2887-8) UROBILIN (test code = 2.0 mg/dL Normal A 5939254843) BILIRUBIN (test code = Negative Negative 2899743845) NITRITE (test code = Negative Negative 9439254341) LEUK DENNIS (test code = 500/uL Negative A 6167633381) RBC/HPF (test code = See_Comment [Autom ated message] 4965851930) The system [employer] generated this result transmit carole reference range : 0 - 3 HPF. The refe rence range was not u sed to interpret th is result as normal/abnormal . WBC/HPF (test code = See_Comment H [Autom ated message] 6544440308) The system [employer] generated this result transmit carole reference range : 0 - 5 HPF. The refe rence range was not u sed to interpret th is result as normal/abnormal . BACTERIA (test code = Many Negative A 9661734374) MUCOUS (test code = Moderate Negative LPF A 5948316804) SQ EPITH (test code = HPF 7932281636) CA OXALATE (test code = See_Comment [Au tomated message] 1774026904) The system [employer] generated this result transmit carole reference range : <=1 HPF. The refere nce range was not u sed to interpret th is result as normal/abnormal . HYAL CAST (test code = See_Comment H [Aut omated message] 1307529266) The system [employer] generated this result transmit carole reference range : <=2 LPF. The refere nce range was not u sed to interpret th is result as normal/abnormal . Lab Interpretation (test Abnormal code = 33054-0) NPI:[id number] (ID NOW RAPID TESTING)2020-12-02 06:56:19 Test Item Value Reference Range Interpretation Comments SARS-CoV-2 Rapid ID NOW Not Detected Not Detected (test code = 86867-3) VIRIDIANA (test code = VIRIDIANA) ID NOW COVID-19 Assay is an isothermal nucleic acid amplification test intended for the qualitative detection of nucleic acid from SARS-CoV-2 viral RNA in nasopharyngeal (HAND DRAWER IN HELPER) specimens. It is used under Emergency Use [...] indicated. Lab Interpretation Normal (test code = 63893-1) NPI:[id number] (ID NOW RAPID TESTING)2020-12-02 06:56:19 Test Item Value Reference Range Interpretation Comments SARS-CoV-2 Rapid ID NOW Not Detected Not Detected (test code = 78620-7) VIRIDIANA (test code = VIRIDIANA) ID NOW COVID-19 Assay is an isothermal nucleic acid amplification test intended for the qualitative detection of nucleic acid from SARS-CoV-2 viral RNA in nasopharyngeal (HAND DRAWER IN HELPER) specimens. It is used under Emergency Use [...] indicated. Lab Interpretation Normal (test code = 20404-7) NPI:[id number] WITH [id number] 06:42:15 Test Item Value Reference Range Interpretation Comments WBC (test code = See_Comment [Automated message] 2090-2) The system [employer] generated this result transmitted ref erence range: 4.50 - 1 3.50 10*3/?L. The re ference range was not u sed to interpret this result as normal/abnor mal. RBC (test code = See_Comment [Automated message] 319-8) The system [employer] generated this result transmitted ref erence range: [...] RDW-SD (test code 40.5 fL 38.5-49.0 = 51039-1) RDW-CV (test code 13.1 % 11.5-14.0 = 788-0) PLT (test code = See_Comment [Automated message] 777-3) The system whic h generated this result transmitted ref erence range: 135 - 36 1 10*3/?L. The re ference range was not u sed to interpret this result as normal/abnor mal. MPV (test code = 12.9 fL 9.4-13.3 66855-5) NRBC/100 WBC (test See_Comment [Automat ed message] code = 4867906837) The syste m which generated this result transmitted ref erence range: 0.0 - 10 .0 /100 WBCs. The refer ence range was not u sed to interpret this result as normal/abnor mal. NRBC x10^3 (test <0.01 See_Comment [Automated message] code = 7651219361) The syste m which generated this result transmitted ref erence range: 10*3/?L. The reference range was not used to interpr et this result as normal/abnormal . GRAN MAT (NEUT) % 63.7 % (test code = 770-8) IMM GRAN % (test 0.40 % code = 0075580436) LYMPH % (test code 27.4 % = 736-9) MONO % (test code 7.2 % = 5905-5) EOS % (test code = 1.0 % 713-8) BASO % (test code 0.3 % = 706-2) GRAN MAT 4.40 10*3/uL 1.50-10.30 x10^3(ANC) (test code = 7945758706) IMM GRAN x10^3 0.03 10*3/uL 0.00-0.06 (test code = 5396196606) LYMPH x10^3 (test 1.89 10*3/uL 0.70-7.40 code = 731-0) MONO x10^3 (test 0.50 10*3/uL 0.00-0.50 code = 742-7) EOS x10^3 (test 0.07 10*3/uL 0.00-0.40 code = 711-2) BASO x10^3 (test <0.03 0.00-0.10 code = 704-7) NPI:[id number] WITH [id number] 06:42:15 Test Item Value Reference Range Interpretation Comments WBC (test code = See_Comment [Automated message] 3090-2) The system [employer] generated this result transmitted ref erence range: 4.50 - 1 3.50 10*3/?L. The re ference range was not u sed to interpret this result as normal/abnor mal. RBC (test code = See_Comment [Automated message] 789-8) The system [employer] generated this result transmitted ref erence range: [...] RDW-SD (test code 40.5 fL 38.5-49.0 = 08095-1) RDW-CV (test code 13.1 % 11.5-14.0 = 788-0) PLT (test code = See_Comment [Automated message] 777-3) The system [employer] generated this result transmitted ref erence range: 135 - 36 1 10*3/?L. The re ference range was not u sed to interpret this result as normal/abnor mal. MPV (test code = 12.9 fL 9.4-13.3 77591-7) NRBC/100 WBC (test See_Comment [Automat ed message] code = 3589875896) The syste m which generated this result transmitted ref erence range: 0.0 - 10 .0 /100 WBCs. The refer ence range was not u sed to interpret this result as normal/abnor mal. NRBC x10^3 (test <0.01 See_Comment [Automated message] code = 3468740530) The syste m which generated this result transmitted ref erence range: 10*3/?L. The reference range was not used to interpr et this result as normal/abnormal . GRAN MAT (NEUT) % 63.7 % (test code = 770-8) IMM GRAN % (test 0.40 % code = 4425443278) LYMPH % (test code 27.4 % = 736-9) MONO % (test code 7.2 % = 5905-5) EOS % (test code = 1.0 % 713-8) BASO % (test code 0.3 % = 706-2) GRAN MAT 4.40 10*3/uL 1.50-10.30 x10^3(ANC) (test code = 9163493587) IMM GRAN x10^3 0.03 10*3/uL 0.00-0.06 (test code = 3559006721) LYMPH x10^3 (test 1.89 10*3/uL 0.70-7.40 code = 731-0) MONO x10^3 (test 0.50 10*3/uL 0.00-0.50 code = 742-7) EOS x10^3 (test 0.07 10*3/uL 0.00-0.40 code = 711-2) BASO x10^3 (test <0.03 0.00-0.10 code = 704-7) NPI:[id number] 06:36:00 Test Item Value Reference Range Interpretation Comments POCT PREG (test code = 1605) neg On board controls acceptable with yes C Line (test code = 3574) POCT PREG LOT # (test code = [id number]) POCT PREG TEST DATE (test code = 3576) Lab Interpretation (test code = Normal 79984-6) NPI:[id number] 06:36:00 Test Item Value Reference Range Interpretation Comments POCT PREG (test code = 1605) neg On board controls acceptable with yes C Line (test code = 3574) POCT PREG LOT # (test code = [id number]) POCT PREG TEST DATE (test code = 3576) Lab Interpretation (test code = Normal 56496-5) NPI:[id number] Acid Whole [id number] 06:31:07 Test Item Value Reference Range Interpretation Comments LACTIC ACID (test code = 2.66 mmol/L 0.50-2.20 H 1974182932) Lab Interpretation (test code = Abnormal 12763-0) NPI:[id number] Acid Whole [id number] 06:31:07 Test Item Value Reference Range Interpretation Comments LACTIC ACID (test code = 2.66 mmol/L 0.50-2.20 H 2687522829) Lab Interpretation (test code = Abnormal 70476-5) NPI:[id number] [id number] 08:22:54 Test Item Value Reference Range Interpretation Comments CK (test code = 2814128195) 101 U/L 33-194 Lab Interpretation (test code = Normal 28710-8) NPI:[id number] 08:22:54 Test Item Value Reference Range Interpretation Comments CK (test code = 2636998827) 101 U/L 33-194 Lab Interpretation (test code = Normal 56768-7) NPI:[id number] HEAD WO [id number] 07:07:23Impression: No CT evidence for acute intracranial abnormality. RL: 460 AFC: [id number] Ordering physician: CHAUNCEY SMITH Indication: Altered level of awareness Comparison: None Technique: Axial images of the head were performed without administrationof intravenous contrast material. CT scan was performed according to ALARA(as low as reasonably achievable) principles. Findings: No acute intracranial abnormality is appreciated. Specifically,there is no acute intracranial hemorrhage, mass, mass effect, extra-axialfluid collection orhydrocephalus. The visualized paranasal sinuses areclear. No middle [...] principles.Findings: No acute intracranial abnormality is appreciated. Specifically,there is no acute intracranial hemorrhage, mass, mass effect, extra-axialfluid collection or hydrocephalus. The visualized paranasal sinuses areclear. No middle ear or mastoid effusion is appreciated. There is nocalvarial fracture.IMPRESSIONImpression:No CT evidence for acute intracranial abnormality.RL: 460AFC: [id number] signed by Pooja Rowland MD, PhD at 11/30/2020 2:07 AMNPI:[id number] HEAD WO CONTRAST 2020-11-30 07:07:23Impression: No CT evidence for acute intracranial abnormality. RL: 460 AFC: [id number] Ordering physician: CHAUNCEY SMITH Indication: Altered level of awareness Comparison: None Technique: Axial images of the head were performed without administrationof intravenous contrast material. CT scan was performed according to ALARA(as low as reasonably achievable) principles. Findings: No acute intracranial abnormality is appreciated. Specifically,there is no acute intracranial hemorrhage, mass, mass effect, extra-axialfluid collection orhydrocephalus. The visualized paranasal sinuses areclear. No middle [...] CT evidence for acute intracranial abnormal ity.RL: 460AF: [id number] signed by Pooja Rowland MD, PhD at 11/30/2020 2:07 AMNPI:[id number] SCREEN PANEL 2 [id number] 05:54:09 Test Item Value Reference Range Interpretation Comments AMPHET (test code = Negative Negative 2453202933) FABIO U (test code = Negative Negative 3845524627) BENZO U (test code = Presumptive Positive Negative A 5720234546) Cocaine Metabolite (test Negative Negative code = 2839090365) METHADONE (test code = Negative Negative 6266388105) OPIATES (test code = Negative Negative 0113613116) PCP (test code = Negative Negative 3395722285) THC (test code = Presumptive Positive Negative A 2365595280) VIRIDIANA (test code = VIRIDIANA) Urine Drug [...] testing). Lab Interpretation (test Abnormal code = 58369-5) NPI:[id number] SCREEN PANEL 2 [id number] 05:54:09 Test Item Value Reference Range Interpretation Comments AMPHET (test code = Negative Negative 9069932142) FABIO U (test code = Negative Negative 0576502139) BENZO U (test code = Presumptive Positive Negative A 9715533647) Cocaine Metabolite (test Negative Negative code = 6265660545) METHADONE (test code = Negative Negative 3065619658) OPIATES (test code = Negative Negative 4602011650) PCP (test code = Negative Negative 9150880315) THC (test code = Presumptive Positive Negative A 6865026771) VIRIDIANA (test code = VIRIDIANA) Urine Drug [...] testing). Lab Interpretation (test Abnormal code = 85682-7) NPI:[id number] (ID NOW RAPID TESTING)2020-11-30 05:49:31 Test Item Value Reference Range Interpretation Comments SARS-CoV-2 Rapid ID NOW Not Detected Not Detected (test code = 59414-4) VIRIDIANA (test code = VIRIDIANA) ID NOW COVID-19 Assay is an isothermal nucleic acid amplification test intended for the qualitative detection of nucleic acid from SARS-CoV-2 viral RNA in nasopharyngeal (HAND DRAWER IN HELPER) specimens. It is used under Emergency Use [...] indicated. Lab Interpretation Normal (test code = 77190-7) NPI:[id number] (ID NOW RAPID TESTING)2020-11-30 05:49:31 Test Item Value Reference Range Interpretation Comments SARS-CoV-2 Rapid ID NOW Not Detected Not Detected (test code = 87575-7) VIRIDIANA (test code = VIRIDIANA) ID NOW COVID-19 Assay is an isothermal nucleic acid amplification test intended for the qualitative detection of nucleic acid from SARS-CoV-2 viral RNA in nasopharyngeal (HAND DRAWER IN HELPER) specimens. It is used under Emergency Use [...] indicated. Lab Interpretation Normal (test code = 91574-4) NPI:[id number] 05:49:21 Test Item Value Reference Range Interpretation Comments APPEARANCE (test code = Hazy Clear A 7047388542) COLOR (test code = Lazara Yellow A 2890153415) PH (test code = 4.8-8.0 2900413590) SP GRAVITY (test code = 1.003-1.030 1075545970) GLU U QUAL (test code = Normal Normal 7701643040) BLOOD (test code = Negative Negative Interfere nce from 7566891011) ascorbic acid m ay cause false neg ative results. KETONES (test code = 20 mg/dL Negative A 2287168308) PROTEIN (test code = 30 mg/dL Negative A 2887-8) UROBILIN (test code = 4.0 mg/dL Normal A 8624826039) BILIRUBIN (test code = Negative Negative 6311725936) NITRITE (test code = Negative Negative 5708528845) LEUK DENNIS (test code = 500/uL Negative A 1231135054) RBC/HPF (test code = See_Comment H [Autom ated message] 2525716613) The system [employer] generated this result transmitted ref erence range: 0 - 3 HP F. The reference range was not used to int erpret this result as normal/abnormal . WBC/HPF (test code = See_Comment H [Autom ated message] 9933552957) The system [employer] generated this result transmitted ref erence range: 0 - 5 HP F. The reference range was not used to int erpret this result as normal/abnormal . BACTERIA (test code = Few Negative A 6395907109) MUCOUS (test code = Slight Negative LPF A 5751058874) SQ EPITH (test code = HPF 9233652572) Lab Interpretation Abnormal (test code = 26706-0) NPI:[id number] 05:49:21 Test Item Value Reference Range Interpretation Comments APPEARANCE (test code = Hazy Clear A 5032713498) COLOR (test code = Lazara Yellow A 2168061547) PH (test code = 4.8-8.0 0999257134) SP GRAVITY (test code = 1.003-1.030 1058346600) GLU U QUAL (test code = Normal Normal 3080411597) BLOOD (test code = Negative Negative Interfere nce from 0494916519) ascorbic acid m ay cause false neg ative results. KETONES (test code = 20 mg/dL Negative A 0144985148) PROTEIN (test code = 30 mg/dL Negative A 2887-8) UROBILIN (test code = 4.0 mg/dL Normal A 8212934870) BILIRUBIN (test code = Negative Negative 3286075984) NITRITE (test code = Negative Negative 9274901850) LEUK DENNIS (test code = 500/uL Negative A 6104474769) RBC/HPF (test code = See_Comment H [Autom ated message] 9379098696) The system [employer] generated this result transmitted ref erence range: 0 - 3 HP F. The reference range was not used to int erpret this result as normal/abnormal . WBC/HPF (test code = See_Comment H [Autom ated message] 8085011853) The system [employer] generated this result transmitted ref erence range: 0 - 5 HP F. The reference range was not used to int erpret this result as normal/abnormal . BACTERIA (test code = Few Negative A 2990435862) MUCOUS (test code = Slight Negative LPF A 0353935285) SQ EPITH (test code = HPF 1957886158) Lab Interpretation Abnormal (test code = 96332-0) NPI:[id number] 05:47:51 Test Item Value Reference Range Interpretation Comments MAGNESIUM (test code = 5217459382) 2.1 mg/dL 1.7-2.4 Lab Interpretation (test code = Normal 76751-4) NPI:[id number] 05:47:51 Test Item Value Reference Range Interpretation Comments MAGNESIUM (test code = 9307205753) 2.1 mg/dL 1.7-2.4 Lab Interpretation (test code = Normal 49653-4) NPI:[id number]. METABOLIC PANEL (57958)2020-11-30 05:47:35 Test Item Value Reference Range Interpretation Comments NA (test code = 139 mmol/L 135-145 9694012170) K (test code = 3.4 mmol/L 3.5-5.0 L 2934045284) CL (test code = 105 mmol/L 98-108 9388426579) CO2 TOTAL (test code = 24 mmol/L 23-31 5896207076) AGAP (test code = 2-16 1823864040) BUN (test code = 8 mg/dL 7-23 5461770787) GLUCOSE (test code = 84 mg/dL 70-110 4272191264) CREATININE (test code = 0.70 mg/dL 0.50-1.04 2019417605) TOTAL BILI (test code = 0.6 mg/dL 0.1-1.9 2920422654) CALCIUM (test code = 9.3 mg/dL 8.6-10.6 8802921280) T PROTEIN (test code = 7.7 g/dL 6.3-8.2 7801450567) ALBUMIN (test code = 4.6 g/dL 3.5-5.0 7860288351) ALK PHOS (test code = 76 U/L 34-122 0073485921) ALTv (test code = 19 U/L 5-35 1742-6) AST(SGOT) (test code = 25 U/L 13-40 7925982964) eGFR (test code = mL/min/1.73m2 5581863909) VIRIDIANA (test code = VIRIDIANA) Association of [...] tests). Lab Interpretation Abnormal (test code = 58086-7) NPI:[id number]. METABOLIC PANEL (69538)2020-11-30 05:47:35 Test Item Value Reference Range Interpretation Comments NA (test code = 139 mmol/L 135-145 3267899441) K (test code = 3.4 mmol/L 3.5-5.0 L 4216631403) CL (test code = 105 mmol/L 98-108 9019254159) CO2 TOTAL (test code = 24 mmol/L 23-31 2116596011) AGAP (test code = 2-16 5435025699) BUN (test code = 8 mg/dL 7-23 8570923357) GLUCOSE (test code = 84 mg/dL 70-110 0492084918) CREATININE (test code = 0.70 mg/dL 0.50-1.04 4309730855) TOTAL BILI (test code = 0.6 mg/dL 0.1-1.3 3331851766) CALCIUM (test code = 9.3 mg/dL 8.6-10.6 7128858224) T PROTEIN (test code = 7.7 g/dL 6.3-8.2 2873059881) ALBUMIN (test code = 4.6 g/dL 3.5-5.0 9074394914) ALK PHOS (test code = 76 U/L 34-122 4678543663) ALTv (test code = 19 U/L 5-35 1742-6) AST(SGOT) (test code = 25 U/L 13-40 8471526381) eGFR (test code = mL/min/1.73m2 0876754877) VIRIDIANA (test code = VIRIDIANA) Association of [...] tests). Lab Interpretation Abnormal (test code = 81731-1) NPI:[id number] GLUCOSE (AUTOMATED)2020-11-30 05:45:23 Test Item Value Reference Range Interpretation Comments POCT GLU (test code = 6570134300) 83 mg/dL 70-110 Lab Interpretation (test code = Normal 40253-4) NPI:[id number] GLUCOSE (AUTOMATED)2020-11-30 05:45:23 Test Item Value Reference Range Interpretation Comments POCT GLU (test code = 8675247156) 83 mg/dL 70-110 Lab Interpretation (test code = Normal 55620-4) NPI:[id number] PANEL 20 + LACTIC [id number] 05:35:20 Test Item Value Reference Range Interpretation Comments PH (test code = 2) 7.35-7.45 PCO2 (test code = See_Comment [Automat ed 1875458625) message] The sy stem which generated this result transmitted reference range : 35 - 45 mmHg. The reference range was not used to interpret this result as normal/abnormal . PO2 (test code = See_Comment H [Automated 5789687132) message] The sy stem which generated this result transmitted reference range : 80 - 100 mmHg. The reference range was not used to interpret this result as normal/abnormal . HCO3 (test code = See_Comment [Automate d 7720326271) message] The sy stem which generated this result transmitted reference range : 22 - 26 mEq/L. The reference range was not used to interpret this result as normal/abnormal . BE (test code = See_Comment [Automated 4199471575) message] The sy stem which generated this result transmitted reference range : -3.0 - 3.0 mEq/ L. The reference r lorene was not used to interpret this result as normal/abnormal . THB (test code = 13.4 g/dL 12.0-16.0 0174146668) %O2HB (test code = 98.5 % 94.0-99.0 4002066063) %COHB ART (test code = 0.0 % 0.0-1.5 7192257135) %METHB ART (test code = 0.3 % 0.4-1.5 L 7436896138) VOL%O2 ART (test code = 18.8 % 15.0-23.0 8710874840) NA (test code = 137 mmol/L 135-145 5246504237) K+ (test code = 3.5 mmol/L 3.5-5.0 1367167050) AC CA IONZ (test code = 4.60 mg/dL 4.50-5.30 5774795126) GLUCOSE (test code = 81 mg/dL 70-110 8363328457) LACTIC ACID (test code 0.87 mmol/L 0.50-2.20 = 7174969550) Lab Interpretation Abnormal (test code = 97109-2) NPI:[id number] PANEL 20 + LACTIC [id number] 05:35:20 Test Item Value Reference Range Interpretation Comments PH (test code = 2) 7.35-7.45 PCO2 (test code = See_Comment [Automat ed 8891517948) message] The sy stem which generated this result transmitted reference range : 35 - 45 mmHg. The reference range was not used to interpret this result as normal/abnormal . PO2 (test code = See_Comment H [Automated 8039888122) message] The sy stem which generated this result transmitted reference range : 80 - 100 mmHg. The reference range was not used to interpret this result as normal/abnormal . HCO3 (test code = See_Comment [Automate d 8135389098) message] The sy stem which generated this result transmitted reference range : 22 - 26 mEq/L. The reference range was not used to interpret this result as normal/abnormal . BE (test code = See_Comment [Automated 5911889098) message] The sy stem which generated this result transmitted reference range : -3.0 - 3.0 mEq/ L. The reference r lorene was not used to interpret this result as normal/abnormal . THB (test code = 13.4 g/dL 12.0-16.0 3984641216) %O2HB (test code = 98.5 % 94.0-99.0 7678197941) %COHB ART (test code = 0.0 % 0.0-1.5 0505709464) %METHB ART (test code = 0.3 % 0.4-1.5 L 2557910994) VOL%O2 ART (test code = 18.8 % 15.0-23.0 3768090874) NA (test code = 137 mmol/L 135-145 0321209165) K+ (test code = 3.5 mmol/L 3.5-5.0 0865603953) AC CA IONZ (test code = 4.60 mg/dL 4.50-5.30 5239945343) GLUCOSE (test code = 81 mg/dL 70-110 3216455141) LACTIC ACID (test code 0.87 mmol/L 0.50-2.20 = 5496652644) Lab Interpretation Abnormal (test code = 08788-8) NPI:[id number] WITH [id number] 05:33:34 Test Item Value Reference Range Interpretation [...] RDW-SD (test code = 41.1 fL 38.5-49.0 94310-4) RDW-CV (test code = 13.2 % 11.5-14.0 788-0) PLT (test code = See_Comment [Automated 777-3) message] The sy stem which generated this result transmitted reference range : 135 - 361 10*3/ ?L. The reference r lorene was not used to interpret this result as normal/abnormal . MPV (test code = 12.5 fL 9.4-13.3 94245-9) NRBC/100 WBC (test See_Comment [Automat ed code = 7417435296) message] The system which generated this result transmitted reference range : 0.0 - 10.0 /100 WBCs. The refer ence range was not u sed to interpret th is result as normal/abnormal . NRBC x10^3 (test code <0.01 See_Comment [Auto mated = 3641594082) message] The s ystem which generated this result transmitted reference range : 10*3/?L. The reference range was not used to interpret this result as normal/abnormal . GRAN MAT (NEUT) % 59.1 % (test code = 770-8) IMM GRAN % (test code 0.40 % = 9791192220) LYMPH % (test code = 31.7 % 736-9) MONO % (test code = 7.0 % 5905-5) EOS % (test code = 1.3 % 713-8) BASO % (test code = 0.5 % 706-2) GRAN MAT x10^3(ANC) 4.58 10*3/uL 1.50-10.30 (test code = 8016082035) IMM GRAN x10^3 (test 0.03 10*3/uL 0.00-0.06 code = 6613018710) LYMPH x10^3 (test code 2.45 10*3/uL 0.70-7.40 = 731-0) MONO x10^3 (test code 0.54 10*3/uL 0.00-0.50 H = 742-7) EOS x10^3 (test code = 0.10 10*3/uL 0.00-0.40 711-2) BASO x10^3 (test code 0.04 10*3/uL 0.00-0.10 = 704-7) Lab Interpretation Abnormal (test code = 70596-8) NPI:[id number] WITH [id number] 05:33:34 Test Item Value Reference Range Interpretation Comments WBC (test code = See_Comment [Automated 8670-2) message] The sy stem which generated this result transmitted reference range : 4.50 - 13.50 10*3/?L. The reference range was not used to interpret this result as normal/abnormal . RBC (test code = See_Comment [Automated 511-8) message] The sy stem which generated this [...] RDW-SD (test code = 41.1 fL 38.5-49.0 86810-9) RDW-CV (test code = 13.2 % 11.5-14.0 788-0) PLT (test code = See_Comment [Automated 777-3) message] The sy stem which generated this result transmitted reference range : 135 - 361 10*3/ ?L. The reference r lorene was not used to interpret this result as normal/abnormal . MPV (test code = 12.5 fL 9.4-13.3 84216-4) NRBC/100 WBC (test See_Comment [Automat ed code = 9672633683) message] The system which generated this result transmitted reference range : 0.0 - 10.0 /100 WBCs. The refer ence range was not u sed to interpret th is result as normal/abnormal . NRBC x10^3 (test code <0.01 See_Comment [Auto mated = 7451674286) message] The s ystem which generated this result transmitted reference range : 10*3/?L. The reference range was not used to interpret this result as normal/abnormal . GRAN MAT (NEUT) % 59.1 % (test code = 770-8) IMM GRAN % (test code 0.40 % = 3603533439) LYMPH % (test code = 31.7 % 736-9) MONO % (test code = 7.0 % 5905-5) EOS % (test code = 1.3 % 713-8) BASO % (test code = 0.5 % 706-2) GRAN MAT x10^3(ANC) 4.58 10*3/uL 1.50-10.30 (test code = 4395797292) IMM GRAN x10^3 (test 0.03 10*3/uL 0.00-0.06 code = 5457146267) LYMPH x10^3 (test code 2.45 10*3/uL 0.70-7.40 = 731-0) MONO x10^3 (test code 0.54 10*3/uL 0.00-0.50 H = 742-7) EOS x10^3 (test code = 0.10 10*3/uL 0.00-0.40 711-2) BASO x10^3 (test code 0.04 10*3/uL 0.00-0.10 = 704-7) Lab Interpretation Abnormal (test code = 29219-3) NPI:[id number] GLUCOSE(AGE >30DAYS)2020-11-30 05:31:00 Test Item Value Reference Range Interpretation Comments POCT Glu (age>30days) (test code = 83 mg/dL 70-110 3342) Lab Interpretation (test code = Normal 07638-1) NPI:[id number] GLUCOSE(AGE >30DAYS)2020-11-30 05:31:00 Test Item Value Reference Range Interpretation Comments POCT Glu (age>30days) (test code = 83 mg/dL 70-110 3342) Lab Interpretation (test code = Normal 75052-8) NPI:[id number] 05:26:00 Test Item Value Reference Range Interpretation Comments POCT PREG (test code = 1605) NEGATIVE On board controls acceptable with POSITIVE C Line (test code = 3574) POCT PREG LOT # (test code = 3575) [id number] POCT PREG TEST DATE (test 03/22/2022 code = 3576) Lab Interpretation (test code = Normal 40741-0) NPI:[id number] 05:26:00 Test Item Value Reference Range Interpretation Comments POCT PREG (test code = 1605) NEGATIVE On board controls acceptable with POSITIVE C Line (test code = 3574) POCT PREG LOT # (test code = 3575) [id number] POCT PREG TEST DATE (test 03/22/2022 code = 3576) Lab Interpretation (test code = Normal 46489-1) NPI:[id number] HEAD WO [id number] 04:38:43 1. No intracranial abnormalities.2. Left parietal scalp hematoma with no skull fracture RL: [id number] End of report ORDERING CLINICIAN: ALEC RIVERA TECHNIQUE: Axial scanning of the brain was performed without IV contrast. CT scan was performed according to the ALARA (as low as reasonablyachievable) principal. INDICATION: Head injury COMPARISON: None DISCUSSION:There is no intracranial hemorrhage, extra-axial fluid collections, midlineshift or hydrocephalus. There is no loss of the pineda-white matterdifferentiation. No mass lesion isidentified. There is a left parietal scalp hematoma. There is no skull fracture. The parenchymal volume is within normal limits for the patient's age. [facility], Radiant Results Inft User [...] with no skull fractureRL: [id number] of report XR CERVICAL SPINE 3 [id number] 04:36:57Unremarkable cervical spine radiographs RL: [id number] End of report ORDERING PHYSICIAN: JACKY RIVERA TECHNIQUE: Cervical spine 3 views HISTORY: Fall, neck injury COMPARISON: None FINDINGS:The alignment of the cervical spine is normal. There are no displaced fractures. The prevertebral soft tissues are normal. [facility], Radiant Results Inft User- 05/28/2019 10:38 PM CSTORDERING PHYSICIAN: ALEC TRIANAIQUE: Cervical spine 3 viewsHISTORY: Fall, neck injuryCOMPARISON: NoneFINDINGS:The alignment of the cervical spine is normal.There are nodisplaced fractures.The prevertebral soft tissues are normal.IMPRESSIONUnremarkable cervical spine radiographsRL: [id number] of report "
--- NOTE | 2021-07-27 23:56 | ER ---
Nurse's Notes [facility] Name: Sofie Jensen Age: 20 yrs Sex: Female : 2000 Arrival Date: 07/27/2021 Time: 23:25 Bed 15 Private MD: Diagnosis: Presentation: 07/27 23:29 Chief complaint: EMS states: pt had a seizure witnessed by family, pt has hx and takes ld1 keppra. pt post ictal upon ems arrival. Coronavirus screen: At this time, the client does not indicate any symptoms associated with coronavirus-19. Ebola Screen: No symptoms or risks identified at this time. Initial Sepsis Screen: Does the patient meet any 2 criteria? No. Patient's initial sepsis screen is negative. Does the patient have a suspected source of infection? No. Patient's initial sepsis screen is negative. Risk Assessment: Do you want to hurt yourself or someone else? Patient reports no desire to harm self or others. Onset of symptoms was July 27, 2021. 23:29 Method Of Arrival: EMS: [facility] ld1 23:29 Acuity: EN 3 ld1 Triage Assessment: 23:30 General: Appears in no apparent distress. Behavior is cooperative. Pain: Complains of ld1 pain in right leg and left leg. Neuro: No deficits noted. Dean Agitation-Sedation Scale (RASS): -1 Drowsy Level of Consciousness is alert, obeys commands, Oriented to person, place, time, situation. Cardiovascular: No deficits noted. Capillary refill < 3 seconds Patient's skin is warm and dry. Respiratory: No deficits noted. Airway is patent Trachea midline Respiratory effort is even, unlabored. GI: No deficits noted. 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 - Social history:: Smoking status: Patient denies any tobacco usage or history of. Patient/guardian denies using alcohol. Screenin:53 Abuse screen: Denies threats or abuse. Denies injuries from another. Nutritional sm5 screening: No deficits noted. Tuberculosis screening: No symptoms or risk factors identified. Fall Risk None identified. Assessment: 23:52 Reassessment: girlfriend asking to speak to this RN in the room. Girlfriend and pt sm5 stating they would like to leave as the pt "is fine now". Pt left without being seen by a provider. Vital Signs: 23:29 BP 106 / 70; Pulse 93; Resp 20; Pulse Ox 100% on R/A; Weight 58.97 kg; Height 5 ft. 5 ld1 in. (165.10 cm); Pain 5/10; 23:29 Body Mass Index 21.63 (58.97 kg, 165.10 cm) ld1 ED Course: 23:25 Patient arrived in ED. mw2 23:29 Enriqueta Pelaez, RN is Primary Nurse. ld1 23:30 Triage completed. ld1 23:31 Arm band placed on right wrist. ld1 23:32 Brandon Ambrosio MD is Attending Physician. [facility] 23:53 Patient has correct armband on for positive identification. Placed in gown. Bed in low sm5 position. Call light in reach. Side rails up X2. Client placed on continuous cardiac and pulse oximetry monitoring. NIBP monitoring applied. 23:53 No provider procedures requiring assistance completed. Patient did not have IV access sm5 during this emergency room visit. 23:55 Elisa Rowe, RN is Attending Physician. 5 Administered Medications: No medications were administered Outcome: 23:54 Eloped from patient exam room, before seeing physician 5 23:54 Condition: stable 23:54 Instructed on need to come back if she has another seizure 23:55 Patient left the ED. [facility] Signatures: Bar Addison mw2 Brandon Ambrosio MD MD [facility] Enriqueta Pelaez, RN RN 1 Elisa Rowe RN RN [facility]
[2021-07-28 00:20] VITALS: BP 106/70; O2SAT 100
== END 2021-07-27 23:55 | disposition left against medical advice (07) ==
LOC: ER 23:24
DX: Z53.21 Procedure and treatment not carried out due to patient leaving prior to being seen by health care provider (principal)
CPT/HCPCS: 99282

== ENCOUNTER 2021-08-12 18:40 | Emergency (ER) | payer OTHER ==
--- OUTSIDE RECORDS SUMMARY | 2021-08-12 18:44 | XMS REPORT | Continuity of Care Document ---
:2000 Author Organization [facility] t Address [address] [place] [address] Care Team Providers Name Role Phone PCP, [...] Number Effective Date Expiration Date Courtney JONES [id number] 2019 00:00:00 [place] XENIA [id number] 2017 HEALTH 00:00:00 Problems Condition Condition Condition [...] rs active active ity of problems problems [facility] Allergies, Adverse Reactions, Alerts Allergy Allergy Status Severity Reaction(s) Onset Inactive Treating Comm ents Source Name Type Date Date Clinician [place] [facility] Active Hives Univers And ty to [...] Quantity Comments Source Exposure to Not sure [facility] [place] Tobacco use and 2017-11-19 2017-11-19 Never used [facility] exposure 00:00:00 00:00:00 Medical [place] Sex Assigned At [birth year] [facility] 00:00:00 00:00:00 Medical [place] Smoking Status Start Date Stop Date Source Never smoker [facility] Medications Ordered Filled Start Stop Current Ordering Indication Dosage Frequency Signature Comments Components Source Medication Medication Date Date Medication? Clinician (SIG) Name Name Potassium Yes 40meq 40 mEq, Univ ers Bicarb-Citr 12-04 Oral, ity of ic Acid 14:00: DAILY, [place] (EFFER-K) First dose Medi lilibeth effervescen on Thu t tablet 40 12/04/20 at mEq 0900, Until Discontinu ed, Routine Potassium Yes 40meq 40 mEq, [facility] ers Bicarb-Citr 9-14 Oral, ity of ic Acid 14:00: DAILY, [place] (EFFER-K) 00 First dose Medi lilibeth effervescen on Thu t tablet 40 12/04/20 at mEq 0900, Until Discontinu ed, Routine prazosin Yes 1mg 1 mg, Univers (MINIPRES) 9-14 Oral, QHS, ity of capsule 1 02:00: [place] dose [place] 00 on [facility] 12/03/20 at [place] 2100, Until Discontinu ed, Routine prazosin Yes 1mg 1 mg, Univers (MINIPRES) 9-14 Oral, QHS, ity of capsule 1 02:00: [place] mg 00 on [facility] 12/03/20 at [place] 2100, Until Discontinu ed, Routine vitamin 2020- No [id number] 1000ug Take 1 U nivers B-12 1,000 9-14 10-15 tablet by ity of mcg tablet 00:00: 04:59 mouth [place] 00 :00 daily for Medical 30 days. [place] vitamin 2020- No [id number] 1000ug Take 1 U nivers B-12 1,000 9-14 10-15 tablet by ity of mcg tablet 00:00: 04:59 mouth [place] 00 :00 daily for Medical 30 days. [place] gadoteridol 2020- No [id number] .2mL/kg 11.8 mL Univers (PROHANCE-1 12-03 (0.2 mL/kg i ty of 5 mL) 17:00: 17:00 ?59 kg), [place] injection 00 :00 Intravenou Medi lilibeth 11.8 mL s, ONCE, 1 Branch dose, On [facility] 12/03/20 at 1200, Routine gadoteridol 2020- No [id number] .2mL/kg 11.8 mL Univers (PROHANCE-1 12-03 (0.2 mL/kg i ty of 5 mL) 17:00: 17:00 ?59 kg), [place] injection 00 :00 Intravenou Medi lilibeth 11.8 mL s, ONCE, 1 Branch dose, On [facility] 12/03/20 at 1200, Routine vitamin Yes 1000ug 1,000 mcg, Un spring B-12 12-03 Oral, ity of (CYANOCOBAL 14:00: DAILY, [place] RAM) 00 First dose Medical tablet on [facility] Branch 1,000 mcg 12/03/20 at 0900, Until Discontinu ed, Routine pantoprazol 0 Yes 40mg 40 mg, [facility] ers e 12-03 Oral, ity of (PROTONIX) 14:00: DAILY, [place] EC tablet 00 First dose Medi lilibeth 40 mg on [facility] Branch 12/03/20 at 0900, Until Discontinu ed, Routine vitamin 2020-0 Yes 1000ug 1,000 mcg, Un spring B-12 12-03 Oral, ity of (CYANOCOBAL 14:00: DAILY, [place] RAM[place] 00 First dose Medical tablet on [facility] Branch 1,000 mcg 12/03/20 at 0900, Until Discontinu ed, Routine pantoprazol 0 Yes 40mg 40 mg, Univ ers e 12-03 Oral, ity of (PROTONIX) 14:00: DAILY, [place] EC tablet 00 First dose Medi lilibeth 40 mg on [facility] Branch 12/03/20 at 0900, Until Discontinu ed, Routine potassium 2020- No 20meq 20 mEq, IV Univers chloride 20 12-03 Piggyback, i ty of mEq/100 mL 13:00: 16:59 Q2H, 2 [place] (KCL) 20 00 :00 doses, Medical mEq/100 mL First dose [facility] RTU IVPB 20 on Thu mEq 12/03/20 at 0800, Last dose on Thu12/03/20 at 1000, 100 mL potassium 2020- No 20meq 20 mEq, IV Univers chloride 20 12-03 [place], i ty of mEq/100 mL 13:00: 16:59 Q2H, 2 [place] (KCL) 20 00 :00 doses, Medical mEq/100 mL First dose [facility] RTU IVPB 20 on Thu mEq 12/03/20 at 0800, Last dose on Thu12/03/20 at 1000, 100 mL ciprofloxac 2020- No [id number] 500mg Take 1 Univers in HCl 500 12-03 tablet by ity of mg tablet 00:00: 04:59 mouth [place] 00 :00 every 12 Medical (twelve) Branch hours for 7 days. ciprofloxac 2020- No [id number] 500mg Take 1 Univers in HCl 500 12-03 tablet by ity of mg tablet 00:00: 04:59 mouth [place] 00 :00 every 12 Medical (twelve) Branch hours for 7 days. enoxaparin Yes 40mg 40 mg, Unive rs (LOVENOX) 12-02 Subcutaneo ity of injection 22:00: us, DAILY, [place] 40 mg 00 First dose Medical on [facility] 12/02/20 at 1700, Until Discontinu ed, Routine enoxaparin Yes 40mg 40 mg, Unive rs (LOVENOX) 12-02 Subcutaneo ity of injection 22:00: us, DAILY, [place] 40 mg 00 First dose Medical on [facility] 12/02/20 at 1700, Until Discontinu ed, Routine gadoteridol 2020- No [id number] .2mL/kg 11.8 mL Univers (PROHANCE-1 12-02 (0.2 mL/kg i ty of 5 mL) 17:45: 17:45 ?59 kg), [place] injection 00 :00 Intravenou Medi lilibeth 11.8 mL s, ONCE, 1 Branch dose, On [place] 12/02/20 at 1245, Routine gadoteridol 2020- No [id number] .2mL/kg 11.8 mL Univers (PROHANCE-1 12-02 (0.2 mL/kg i ty of 5 mL) 17:45: 17:45 ?59 kg), [place] injection 00 :00 Intravenou Medi lilibeth 11.8 mL s, ONCE, 1 Branch dose, On [place] 12/02/20 at 1245, Routine cefTRIAXone Yes 1000mg 1,000 mg, Univers (ROCEPHIN) 12-02 IV ity of 1,000 mg in 16:30: Piggyback, [place] NaCl 0.9% 00 Q24H ABX, Medic al (NS) 50 mL First dose Bra njh MINI-BAG on [place] 12/02/20 at 1130, Until Discontinu ed, Administer over 30 Minutes, 50 mL
Reas on for Anti-Infec tive: Documented Infection< br>Documen carole Infection Site: Urine
D uration of Therapy: 7 days cefTRIAXone 2020-0 Yes 1000mg 1,000 mg, Univers (ROCEPHIN) 9-12 IV ity of 1,000 mg in 16:30: [place], [place] NaCl 0.9% 00 Q24H ABX, Medic al (NS) 50 mL First dose [facility] MINI-BAG on [place] 12/02/20 at 1130, Until Discontinu ed, Administer over 30 Minutes, 50 mL
Reas on for Anti-Infec tive: Documented Infection< br>Documen carole Infection Site: Urine
D uration of Therapy: 7 days NaCl 0.9% 0 Yes 1000mL at 50 Unive rs (NS) IV 9-12 mL/hr, IV ity of infusion 15:30: Infusion, [place] 1,000 mL 00 CONTINUOUS Medic al , Starting Branch on [place] 12/02/20 at 1030, Until Discontinu ed, Routine NaCl 0.9% 0 Yes 1000mL at 50 Unive rs (NS) IV 9-12 mL/hr, IV ity of infusion 15:30: Infusion, [place] 1,000 mL 00 CONTINUOUS Medic al , Starting Branch on [place] 12/02/20 at 1030, Until Discontinu ed, Routine acetaminoph 0 Yes 650mg 650 mg, Un spring en 9-12 Oral, ity of (TYLENOL) 15:19: Q6HPRN, [place] tablet 650 42 Starting Medic al mg on [facility] 12/02/20 at 1019, Until Discontinu ed, Routine, Pain (scale 4-6) docusate 2020-0 Yes 100mg 100 mg, Unive rs (COLACE) 9-12 Oral, ity of capsule 100 15:19: QDAILYPRN, [place] mg 42 Starting Medical on [facility] 12/02/20 at 1019, Until Discontinu ed, Routine, Constipati on acetaminoph 2020-0 Yes 650mg 650 mg, Un spring en 9-12 Oral, ity of (TYLENOL) 15:19: Q6HPRN, [place] tablet 650 42 Starting Medic al mg on [facility] 12/02/20 at 1019, Until Discontinu ed, Routine, Pain (scale 4-6) docusate Yes 100mg 100 mg, Unive rs (COLACE) 12-02 Oral, ity of capsule 100 15:19: QDAILYPRN, [place] mg 42 Starting Medical on [facility] 12/02/20 at 1019, Until Discontinu ed, Routine, Constipati on midazolam 0 2020- No 1mg 1 mg, IV Uni vers (VERSED) 12-02 Push, ity of injection 1 11:15: 10:15 ONCE, 1 [place] mg 00 :00 dose, [facility] 12/02/20 at [place] 0615, STAT midazolam 2020-0 202- No 1mg 1 mg, IV Uni vers (VERSED) 12-02 Push, ity of injection 1 11:15: 10:15 ONCE, 1 [place] mg 00 :00 dose, [facility] 12/02/20 at [place] 0615, STAT midazolam 2020-0 2020- No 1mg 1 mg, IV Uni vers (VERSED) 12-02 Push, ity of injection 1 10:45: 09:30 ONCE, 1 [place] mg 00 :00 dose, [facility] 12/02/20 at Branch 0545, STAT midazolam 2020-0 2020- No 1mg 1 mg, IV Uni vers (VERSED) 12-02 Push, ity of injection 1 10:45: 09:30 ONCE, 1 [place] mg 00 :00 dose, [facility] 12/02/20 at Branch 0545, STAT NaCl 0.9% 0 Yes 1000mL at 125 Univ ers (NS) IV 9-12 mL/hr, IV ity of infusion 10:00: Infusion, [place] 1,000 mL 00 CONTINUOUS Medic al , Starting [facility] 12/02/20 at 0500, Until Discontinu ed, Routine NaCl 0.9% 0 Yes 1000mL at 125 Univ ers (NS) IV 9-12 mL/hr, IV ity of infusion 10:00: Infusion, [place] 1,000 mL 00 CONTINUOUS Medic al , Starting [facility] 12/02/20 at 0500, Until Discontinu ed, Routine ondansetron Yes 4mg 4 mg, Slow Univers (ZOFRAN 9-12 IV Push, ity of (PF)) 09:52: Q6HPRN, [place] injection 4 57 Starting Medi lilibeth mg [facility] 12/02/20 at 0452, Until Discontinu ed, Routine, Nausea and Vomiting (N/V) ondansetron 2020-0 Yes 4mg 4 mg, Slow Univers (ZOFRAN 12-02 IV Push, ity of (PF)) 09:52: Q6HPRN, [place] injection 4 57 Starting Medi lilibeth mg [facility] 12/02/20 at 0452, Until Discontinu ed, Routine, Nausea and Vomiting (N/V) acetaminoph 2020-0 Yes 650mg 650 mg, Un spring en 12 Oral, ity of (TYLENOL) 09:52: Q6HPRN, [place] tablet 650 44 Starting Medic al mg [facility] 12/02/20 at 0452, Until Discontinu ed, Routine, Pain (scale 1-3), Temp > 38.5 C acetaminoph 2020-0 Yes 650mg 650 mg, Un spring en 12-02 Oral, ity of (TYLENOL) 09:52: Q6HPRN, [place] tablet 650 44 Starting Medic al mg [facility] 12/02/20 at 0452, Until Discontinu ed, Routine, Pain (scale 1-3), Temp > 38.5 C NaCl 0.9% 2020- No 1000mL at 999 Uni vers (NS) bolus 12-02 mL/hr, ity of infusion 09:00: 10:23 1,000 mL, [place] 1,000 mL 00 :00 IV Medical [facility] [place] ONCE, 1 dose, [place] 12/02/20 at 0400, STAT NaCl 0.9% 2020- No 1000mL at 999 Uni vers (NS) bolus 12-02 mL/hr, ity of infusion 09:00: 10:23 1,000 mL, [place] 1,000 mL 00 :00 [facility] [place] ONCE, 1 dose, [place] 12/02/20 at 0400, STAT cefTRIAXone 2020-0 2020- No 1000mg 1,000 mg, Univers (ROCEPHIN) 12-02 IV ity of 1,000 mg in 08:45: 08:24 [place], [place] NaCl 0.9% 00 :00 ONCE, 1 Medical (NS) 50 mL dose, [facility] ch MINI-BAG 12/02/20 at 0345, Administer over 30 Minutes, 50 mL
R fabio for Anti-Infec tive: Documented Infection< br>Documen carole Infection Site: Urine
D uration of Therapy: 7 days cefTRIAXone 2020-2020- No 1000mg 1,000 mg, Univers (ROCEPHIN) 12-02 IV ity of 1,000 mg in 08:45: 08:24 [place], [place] NaCl 0.9% 00 :00 ONCE, 1 Medical (NS) 50 mL dose, [facility] ch MINI-BAG 12/02/20 at 0345, Administer over [...] NaCl 0.9% 2020- No 500mL at 999 [facility] ers (NS) bolus 12-02 mL/hr, 500 it y of infusion 07:00: 07:12 mL, IV [place] 500 mL 00 :00 Piggyback, Medical ONCE, 1 Branch dose, [place] 12/02/20 at 0200, STAT NaCl 0.9% 2020-0 2020- No 500mL at 999 Univ ers (NS) bolus 12-02 mL/hr, 500 it y of infusion 07:00: 07:12 mL, IV [place] 500 mL 00 :00 [place], Medical ONCE, 1 Branch dose, [place] 12/02/20 at 0200, STAT cefTRIAXone 2020- No 1000mg 1,000 mg, Univers (ROCEPHIN) 11-30 IV ity of 1,000 mg in :30: :03 [place], [place] NaCl 0.9% 00 :00 ONCE, 1 Medical (NS) 50 mL dose, Fri Bran ch MINI-BAG 11/30/20 at 0230, Administer over 30 Minutes, 50 mL
R fabio for Anti-Infec tive: Documented Infection< br>Documen carole Infection Site: Urine
D uration of Therapy: Other (see Comments) cefTRIAXone No 1000mg 1,000 mg, Univers (ROCEPHIN) 11-30 IV ity of 1,000 mg in 07:30: 07:03 [place], [place] NaCl 0.9% 00 :00 ONCE, 1 Medical (NS) 50 mL dose, Fri Bran ch MINI-BAG 11/30/20 at 0230, Administer over 30 Minutes, 50 mL
R fabio for Anti-Infec tive: Documented Infection< br>Documen carole Infection Site: Urine
D uration of Therapy: Other (see Comments) Nitrofurant Yes [id number] 100mg Take 1 Univers oin&Nit. 9-10 capsule by ity o f [place] 00:00: mouth 2 [place] (MACROBID) 00 (two) Medical 100 mg times Branch capsule daily. Nitrofurant Yes [id number] 100mg Take 1 Univers oin&Nit. 9-10 capsule by ity o f [place] 00:00: mouth 2 [place] (MACROBID) 00 (two) Medical 100 mg times Branch capsule daily. Nitrofurant Yes [id number] 100mg Take 1 Univers oin&Nit. 9-10 capsule by ity o f [place] 00:00: mouth 2 [place] (MACROBID) 00 (two) Medical 100 mg times Branch capsule daily. Nitrofurant Yes [id number] 100mg Take 1 Univers oin&Nit. 9-10 capsule by ity o f [place] 00:00: mouth 2 [place] (MACROBID) 00 (two) Medical 100 mg times Branch capsule daily. Nitrofurant Yes [id number] 100mg Take 1 Univers oin&Nit. 9-10 capsule by ity o f [place] 00:00: mouth 2 [place] (MACROBID) 00 (two) Medical 100 mg times Branch capsule daily. Nitrofurant Yes [id number] 100mg Take 1 Univers oin&Nit. 9-10 capsule by ity o f [place] 00:00: mouth 2 [place] (MACROBID) 00 (two) Medical 100 mg times Branch capsule daily. Nitrofurant Yes [id number] 100mg Take 1 Univers oin&Nit. 9-10 capsule [...] 05/29/19 at Branch tablet 0045, CHEN hydrocortis Yes Apply to U nivers one 1 % 3-11 affected ity of cream 00:00: area(s) [place] 00 daily. Medical Branch hydrocortis Yes Apply to U nivers one 1 % 3-11 affected ity of cream 00:00: area(s) [place] 00 daily. Medical Branch hydrocortis Yes Apply to U nivers one 1 % 3-11 affected ity of cream 00:00: area(s) [place] 00 daily. Medical Branch hydrocortis 2015-0 Yes Apply to U nivers one 1 % 3-11 affected ity of cream 00:00: area(s) [place] 00 daily. Medical Branch hydrocortis 2015-0 Yes Apply to U nivers one 1 % 3-11 affected ity of cream 00:00: area(s) [place] 00 daily. Medical Branch hydrocortis 2015-0 Yes Apply to U nivers one 1 % 3-11 affected ity of cream 00:00: area(s) [place] 00 daily. Medical Branch hydrocortis 2015-0 Yes [...] 00 daily. Medical Branch crotamiton 2016-0 Yes [id number] After warm Univers (EURAX) 10 3-08 bath apply ity of % lotion 00:00: lotion to [place] 00 entire Medical body Branch excluding face and scalp. Repeat in 24 hours. cetirizine Yes [id number] 10mg Take 1 Tab Univers (ZYRTEC) 10 3-08 by mouth ity of mg tablet 00:00: at bedtime [place] 00 as needed Medical for Other Branch (itching). crotamiton Yes [id number] After warm Univers (EURAX) 10 3-08 bath apply ity of % lotion 00:00: lotion to [place] 00 entire Medical body Branch excluding face and scalp. Repeat in 24 hours. cetirizine 2015-0 Yes [id number] 10mg Take 1 Tab Univers (ZYRTEC) 10 3-08 by mouth ity of mg tablet 00:00: at bedtime [place] 00 as needed Medical for Other Branch (itching). crotamiton Yes [id number] After warm Univers (EURAX) 10 3-08 bath apply ity of % lotion 00:00: lotion to [place] 00 entire Medical body Branch excluding face and scalp. Repeat in 24 hours. cetirizine 2015-0 Yes [id number] 10mg Take 1 Tab Univers (ZYRTEC) 10 3-08 by mouth ity of mg tablet 00:00: at bedtime [place] 00 as needed Medical for Other Branch (itching). crotamiton 2015- Yes [id number] After warm Univers (EURAX) 10 3-08 bath apply ity of % lotion 00:00: lotion to [place] 00 entire Medical body Branch excluding face and scalp. Repeat in 24 hours. cetirizine Yes [id number] 10mg Take 1 Tab Univers (ZYRTEC) 10 3-08 by mouth ity of mg tablet 00:00: at bedtime [place] 00 as needed Medical for Other Branch (itching). crotamiton Yes [id number] After warm Univers (EURAX) 10 3-08 bath apply ity of % lotion 00:00: lotion to [place] 00 entire Medical body Branch excluding face and scalp. Repeat in 24 hours. cetirizine Yes [id number] 10mg Take 1 Tab Univers (ZYRTEC) 10 3-08 by mouth ity of mg tablet 00:00: at bedtime [place] 00 as needed Medical for Other Branch (itching). crotamiton Yes [id number] After warm Univers (EURAX) 10 3-08 bath apply ity of % lotion 00:00: lotion to [place] 00 entire Medical body Branch excluding face and scalp. Repeat in 24 hours. cetirizine Yes [id number] 10mg Take 1 Tab Univers (ZYRTEC) 10 3-08 by mouth ity of mg tablet 00:00: at bedtime [place] 00 as needed Medical for Other Branch (itching). crotamiton Yes [id number] After warm Univers (EURAX) 10 3-08 bath apply ity of % lotion 00:00: lotion to [place] 00 entire Medical body Branch excluding face and scalp. Repeat in 24 hours. cetirizine Yes [id number] 10mg Take 1 Tab Univers (ZYRTEC) 10 3-08 by mouth ity of mg tablet 00:00: at bedtime [place] 00 as needed Medical for Other Branch (itching). crotamiton Yes [id number] After warm Univers (EURAX) 10 3-08 bath apply ity of % lotion 00:00: lotion to [place] 00 entire Medical body Branch excluding face and scalp. Repeat in 24 hours. cetirizine Yes [id number] 10mg Take 1 Tab Univers (ZYRTEC) 10 3-08 by mouth ity of mg tablet 00:00: at bedtime [place] 00 as needed Medical for Other Branch (itching). crotamiton Yes [id number] After warm Univers (EURAX) 10 3-08 bath apply ity of % lotion 00:00: lotion to [place] 00 entire Medical body Branch excluding face and scalp. Repeat in 24 hours. cetirizine Yes [id number] 10mg Take 1 Tab Univers (ZYRTEC) 10 3-08 by mouth ity of mg tablet 00:00: at bedtime [place] 00 as needed Medical for Other Branch (itching). crotamiton Yes [id number] After warm Univers (EURAX) 10 3-08 bath apply ity of % lotion 00:00: lotion to [place] 00 entire Medical body Branch excluding face and scalp. Repeat in 24 hours. cetirizine Yes [id number] 10mg Take 1 Tab Univers (ZYRTEC) 10 [...] Immunizations Ordered Filled Immunization Date Status Comments [facility] e Immunization Name Name HPV9 2015-05-17 Completed University of 00:00:00 [facility] HPV9 2015-05-17 Completed University of 00:00:00 [facility] HPV9 2015-05-17 Completed University of 00:00:00 [facility] HPV9 2015-05-17 Completed University of 00:00:00 [facility] HPV9 2015-05-17 Completed University of 00:00:00 [facility] HPV9 2015-05-17 Completed University of 00:00:00 [facility] HPV9 2015-05-17 Completed University of 00:00:00 [facility] HPV9 2015-05-17 Completed University of 00:00:00 [facility] HPV9 2015-05-17 Completed University of 00:00:00 [facility] HPV9 2015-05-17 Completed University of 00:00:00 [facility] Varicella 2015-01-16 Completed University of (varivax)(chicken 00:00:00 [...] y of Vaccine Quad IM 3+ 00:00:00 [facility] Influenza Virus 2014-12-27 Completed Universit y of Vaccine Quad IM 3+ 00:00:00 [facility] Influenza Virus 2014-12-27 Completed Universit y of Vaccine Quad IM 3+ 00:00:00 [facility] Influenza Virus 2014-12-27 Completed Universit y of Vaccine Quad IM 3+ 00:00:00 [facility] Influenza Virus 2014-12-27 Completed Universit y of Vaccine Quad IM 3+ 00:00:00 [facility] Influenza Virus 2014-12-27 Completed Universit y of Vaccine Quad IM 3+ 00:00:00 [facility] Influenza Virus 2014-12-27 Completed Universit y of Vaccine Quad IM 3+ 00:00:00 [facility] Influenza Virus 2014-12-27 Completed Universit y of Vaccine Quad IM 3+ 00:00:00 [facility] Influenza Virus 2014-12-27 Completed Universit y of Vaccine Quad IM 3+ 00:00:00 [facility] Influenza Virus 2014-12-27 Completed Universit y of Vaccine Quad IM 3+ 00:00:00 [facility] Vital Signs Vital Name Observation Time Observation Value Comments Source Systolic blood 2020-12-04 12:43:00 118 mm[Hg] Univer sity of pressure [facility] Diastolic blood 2020-12-04 12:43:00 65 mm[Hg] Unive rsity of pressure [facility] Heart rate 2020-12-04 12:43:00 69 /min [facility] Body temperature 2020-12-04 12:43:00 36.5 Latoya [facility] Respiratory rate 2020-12-04 12:43:00 15 /min [facility] in 2020-12-04 12:43:00 97 /min [facility] Arterial blood by [facility] [place] [facility] Pulse oximetry [place] Body height 2020-12-02 23:01:00 162.6 cm [facility] Body weight 2020-12-02 23:01:00 58.968 kg [facility] BMI 2020-12-02 23:01:00 22.31 kg/m2 [facility] Body mass index 2020-12-02 23:01:00 58.99 % Unive rsity of (BMI) [Percentile] [facility] Per age and sex Branch Systolic blood 2020-12-02 11:00:00 104 mm[Hg] Univer sity of [facility] Diastolic blood 2020-12-02 11:00:00 71 mm[Hg] Unive rsity of pressure [facility] Heart rate 2020-12-02 11:00:00 74 /min [facility] [place] [facility] Respiratory rate 2020-12-02 11:00:00 18 /min Univ ersity [facility] [place] [facility] Oxygen saturation in 2020-12-02 11:00:00 98 /min University of Arterial blood by [facility] [place] [facility] Pulse oximetry Branch Body temperature 2020-12-02 05:55:00 36.44 Latoya Univ ers[facility] [place] [facility] Body height 2020-12-02 05:55:00 162.6 cm [facility] [place] [facility] Body weight 2020-12-02 05:55:00 58.968 kg [facility] [place] [facility] BMI 2020-12-02 05:55:00 22.31 kg/m2 [...] 100 /min University of Arterial blood by [facility] [place] [facility] Pulse oximetry Branch Body height 2020-11-30 05:22:00 162.6 cm [facility] [place] [facility] Body weight 2020-11-30 05:22:00 58.968 kg [facility] [place] [facility] BMI 2020-11-30 05:22:00 22.31 kg/m2 [...] Oxygen saturation in 2019-05-29 04:50:00 99 /min University of Arterial blood by [facility] [place] [facility] Pulse oximetry Branch Body weight 2019-05-29 02:56:37 70.308 kg [facility] Body temperature 2019-05-29 05:43:00 36.61 Latoya [facility] Systolic blood 2019-05-29 04:50:00 118 mm[Hg] Univer sity of pressure [facility] Diastolic blood 2019-05-29 04:50:00 86 mm[Hg] [facility] Heart rate 2019-05-29 04:50:00 61 /min [facility] Respiratory rate 2019-05-29 04:50:00 18 /min [facility] Oxygen saturation in 2019-05-29 04:50:00 99 /min [facility] Arterial blood by [facility] [place] [facility] Pulse oximetry Branch Body weight 2019-05-29 02:56:37 70.308 kg [facility] Procedures Procedure Date / Time Performing Source Performed Clinician MR BRAIN W WO CONTRAST [facility]-03 [facility] GALV ONLY - SYPHILIS IGG/IGM 2020[facility]-03 [facility] ELECTROENCEPHALOGRAM 2020-12-03 [facility] MR LUMBAR SPINE W WO CONTRAST 2020-12-02 Marquez Philippe [facility] 17:43:[address] [place] [address] LUMBAR SPINE WO CONTRAST 2020-12-02 Marquez Philippe [facility] 16:47:15 Medical Branch PHOSPHORUS 2020-12-02 [facility] 16[facility]10:00 Medical Branch CREATINE KINASE 2020-12-02 [facility] 16:10:00 Medical Branch MAGNESIUM 2020-12-02 [facility] 16:10:00 Medical Branch VITAMIN B12, LEVEL 2020-12-02 [facility] 16:10[facility] Branch FOLATE 2020-12-02 [facility] 16:10:00 Medical Branch BASIC METABOLIC PANEL (NA, K, 2020-12-02 Marquez Philippe [facility] CL, CO2, GLUCOSE, BUN, 16:10:00 [facility] CREATININE, CA) CBC WITH DIFF 2020-12-02 Jose Martin [facility] 16:10:00 [facility] HIV 1/2 AG-AB WITH REFLEX 2020[facility]12-[facility] ABDOMEN PELVIS WO CONTRAST 2020-12-02 Jermain Ghosh [facility] 08:43:26 [facility] CREATINE KINASE 2020-12-02 [facility] 07:13[facility]00 [facility] COMP. METABOLIC PANEL (64101) 2020-12-02 Jermain Ghosh [facility] 07:13:00 [facility] THYROID STIMULATING HORMONE 2020-12-02 Jose Martin [facility] 07:13:00 [facility] POCT TEST 2020-12-02 Sj [facility] [place] 06:36:00 [facility] COVID-19 (ID NOW RAPID [facility] 06:35:00 [facility] URINE DRUG (IMMUNOASSAY) - 2020-12-02 [facility]PREHENS[facility] SCREEN W/O 06:32[facility]00 [facility]IS 2020-12-02 Sj [facility] 06:31:00 [facility] CBC WITH DIFF 2020-12-02 Sj [facility] 06:15:00 [facility] LACTIC ACID WHOLE BLOOD 2020-12-02 Jermain Ghosh [facility] 06:14:00 [facility] NOTICE OF PRIVACY PRACTICES 2020-12-02 Doctor Unassigned, [facility] 05:51:23 [facility] CONSENT/REFUSAL FOR DIAGNOSIS 2020-12-02 Doctor Unassigned, [facility] 05:51:04 [facility] [place] [facility] HEAD WO CONTRAST 2020-11-30 Chauncey Smith [facility] 06:48:07 [facility] POCT GLUCOSE(AGE >30DAYS) 2020-11-30 Chauncey Smith [facility] 05:31:00 [facility] AC PANEL 20 + LACTIC ACID 2020-11-30 Chauncey Smith [facility] 05:31:00 [facility] POCT GLUCOSE (AUTOMATED) 2020-11-30 Chauncey Smith [facility] 05:30:00 [facility] POCT TEST 2020-11-30 Chauncey Smith [facility] 05:26:00 [facility] URINE DRUG (IMMUNOASSAY) - 2020-11-30 Chauncey Smith [facility] COMPREHENSIVE DRUG SCREEN 05:25:00 [facility] URINALYSIS 2020-11-30 Chauncey mSith [facility] ex 05:25:00 [facility] Branch COVID-19 (ID NOW RAPID 2020-11-30 Chauncey Smith [facility] TESTING) 05:25:00 [facility] MAGNESIUM 2020-11-30 Chauncey Smith [facility] 05:16:00 [facility] COMP. METABOLIC PANEL (77702) 2020-11-30 Chauncey Smith [facility] 05:16:00 [facility] CBC WITH DIFF 2020-11-30 Chauncey Smith [facility] 05:16:00 [facility] CREATINE KINASE 2020-11-30 Chauncey Smith [facility] 05:15:00 [facility] NOTICE OF PRIVACY PRACTICES 2020-11-30 Doctor Unassigned, [facility] 05:01:00 [facility] HEAD WO CONTRAST 2019-05-29 Alec Rivera [facility] 04:16:04 [facility] XR CERVICAL SPINE 3 VW 2019-05-29 Alec Rivera [facility] 04:15:52 [facility] NOTICE OF PRIVACY PRACTICES 2019-05-29 Doctor Unassigned, [facility] 03:47:53 [facility] CONSENT/REFUSAL FOR DIAGNOSIS 2019-05-29 Doctor Unassigned, [facility] 03:47:41 [facility] Encounters Start End Encounter Admission Attending Care Care Encounter Source Date/Time Date/Time Type Type Clinicians Facility Department ID 2021-06-26 Outpatient [facility] [id number] [place] 19:37:59 [id number] Health 2021-01-21 Emergency X [facility] SNS [id number] Univers 22:04:01 [facility] of [facility] 2021-01-21 Emergency [facility] [id number] Univers 22:03:07 ity of [facility] 2021-01-21 Emergency [facility] [id number] Univers 21:40:40 ity of [facility] 2020 2020 Outpatient Brooke BRADY SMITH [facility] [id number] Univers 15:00:00 15:00:00 SARAH, BRADY [id number] ity of [facility] 2020 2020 Outpatient Brooke BRADY SMITH [facility] [id number] Univers 15:00:00 15:00:00 [facility] 2020-12-02 2020-12-04 Emergency Rex Little [id number] Univers 09:18:00 10:50:00 Lazaro Mckeon 350.1.13.10 i ty [facility] 4.2.7.2.686 Tramaine [id number] [address] 2020-12-02 2020-12-02 Emergency Janine Alvarez [facility] 1.2.840 .[id number] Univers 00:47:00 09:12:00 Jermain Ghosh 350.1.13.10 ity of [place] 4.2.7.2.686 [facility] [phone] [place] [address] Branch 2020-12-02 2020-12-02 Outpatient X [facility] [id number] Univers 00:47:00 09:12:00 JERMAIN itale [facility] 2020-11-30 2020-11-30 Emergency Bettyjacki, [facility] [id number] Univers 00:08:00 04:02:00 Chauncey Farrell 350.1.13.10 ity of [place] 4.2.7.2.686 [facility] [id number] [address] 2020-11-30 2020-11-30 Orders Doctor ILDEFONSO [id number] Univers 00:00:00 00:00:00 Only Unassigned, JOSE 350.1.13.10 ity of [facility] 4.2.7.2.686 Tramaine [id number] [facility] 009 Branch 2019-06-15 2019-06-15 Outpatient R [facility] [id number] Univers 10:00:00 10:00:00 [id number] ity of [facility] 2019-06-15 2019-06-15 Outpatient R [facility] [id number] Univers 10:00:00 10:00:00 ity of [facility] 2019-06-15 2019-06-15 Outpatient R [facility] [id number] Univers 10:00:00 10:00:00 ity of [facility] 2019-06-15 2019-06-15 Telephone de [facility] [id number] Univers 00:00:00 00:00:00 Marcos Lerma 350.1.13.10 ity of [facility] 4.2.7.2.686 [facility] [id number] [facility] [address] [place] 2019-06-15 2019-06-15 Telephone de [facility] 1.2.840.114 [id number] 00:00:00 00:00:00 Marcos Lerma 350.1.13.10 [facility] 4.2.7.2.686 Clinic [id number] 225 2019-06-14 2019-06-14 Outpatient R [facility] [id number] Univers 14:40:00 14:40:00 [id number] ity of [facility] 2019-06-14 2019-06-14 Outpatient R [facility] [id number] Univers 14:40:00 14:40:00 ity of [facility] 2019-05-28 2019-05-28 Emergency Nicole [facility] [id number] Univers 20:59:13 23:56:00 Alec Farrell 350.1.13.10 i ty of [place] 4.2.7.2.686 [facility] [id number] [facility] [address] [place] 2019-05-28 2019-05-28 Emergency X NICOLE, [facility] ERT [id number] Univers 20:59:13 23:56:00 ALEC ity of [facility] 2019-05-28 2019-05-28 Emergency Nicole, [facility] [id number] 20:59:13 23:56:00 Juan Jami 350.1.13.10 [place] 4.2.7.2.686 [place] [id number] [facility] 2019-05-28 2019-05-28 Orders Doctor ILDEFONSO 1.2.840.114 [id number] Univers 00:00:00 00:00:00 Only Unassigned, JOSE 350.1.13.10 ity of [place] [facility] 4.2.7.2.686 [facility] [id number] [facility] [address] [place] 2019-05-28 2019-05-28 Orders Doctor ILDEFONSO 1.2.840.114 [id number] 00:00:00 00:00:00 Only Unassigned, JOSE 350.1.13.10 [place] [facility] 4.2.7.2.686 [id number] 009 Results Test Description Test Time Test Comments Results Result Comments Source GALV ONLY - SYPHILIS IGG/IGM 2020-12-03 15:29:02 Test Item Value Reference Range Interpretation Comme nts Syphilis IgG/IgM (test code = Non-reactive Non-reactive 69485-0) VIRIDIANA (test code = VIRIDIANA) Non-reactive - No serologic evidence of T. pallidum infection. Cannot exclude incubating or early syphilis. Submit a second specimen in 2-4 weeks if syphilis is clinically suspected. Equivocal - Further testing to follow. Reactive - Further testing to follow. Lab Interpretation (test code = Normal 57910-9) [id number] 15:29:02 Test Item Value Reference Range Interpretation Comments Syphilis IgG/IgM (test Non-reactive Non-reactive code = 49526-3) VIRIDIANA (test code = VIRIDIANA) Non-reactive - No serologic evidence of T. pallidum infection. Cannot exclude incubating or early syphilis. Submit a second specimen in 2-4 weeks if syphilis is clinically suspected. Equivocal - Further testing to follow. Reactive - Further testing to follow. Lab Interpretation (test Normal code = 17943-6) [facility] [id number] 23:31:33 Test Item Value Reference Range Interpretation Comments VIT B12 (test code = 367 pg/mL 240-930 1531147729) VIRIDIANA (test code = VIRIDIANA) Biotin has been reported to cause a positive bias, interpret results relative to patient's use of biotin. Lab Interpretation (test Normal code = 95624-3) [facility], [id number] 23:31:33 Test Item Value Reference Range Interpretation Comments VIT B12 (test code = 367 pg/mL 240-930 1530616743) VIRIDIANA (test code = VIRIDIANA) Biotin has been reported to cause a positive bias, interpret results relative to patient's use of biotin. Lab Interpretation (test Normal code = 65464-7) [facility]-AB WITH [id number] 22:52:15 Test Item Value Reference Range Interpretation Comments HIV Negative Negative Semi-quantitative (test code = 51792-9) VIRIDIANA (test code = Non-reactive for HIV-1 VIRIDIANA) antigen and HIV-1/HIV-2 antibodies. ?No laboratory evidence of HIV infection. ?Repeat in 2-4 weeks if acute HIV infection is suspected. [facility]-AB WITH [id number] 22:52:15 Test Item Value Reference Range Interpretation Comments HIV Negative Negative Semi-quantitative (test code = 36819-1) VIRIDIANA (test code = Non-reactive for HIV-1 VIRIDIANA) antigen and HIV-1/HIV-2 antibodies. ?No laboratory evidence of HIV infection. ?Repeat in 2-4 weeks if acute HIV infection is suspected. [facility] 21:55:01 Test Item Value Reference Range Interpretation Comments FOLATE SER (test code = 10.1 ng/mL 3.0-20.0 5062704951) Lab Interpretation (test code = Normal 31027-4) [facility] 21:55:01 Test Item Value Reference Range Interpretation Comments FOLATE SER (test code = 10.1 ng/mL 3.0-20.0 4837181181) Lab Interpretation (test code = Normal 29396-3) [facility] [id number] 20:12:25 Test Item Value Reference Range Interpretation Comments MAGNESIUM (test code = 4968207892) 1.6 mg/dL 1.7-2.4 L Lab Interpretation (test code = Abnormal 96485-4) [facility] [id number] 20:12:25 Test Item Value Reference Range Interpretation Comments MAGNESIUM (test code = 7514421883) 1.6 mg/dL 1.7-2.4 L Lab Interpretation (test code = Abnormal 82224-7) [facility] Metabolic Panel (Na, K, Cl, CO2, Glucose, BUN, Creatinine, Ca)2020-12-02 20:12:19 Test Item Value Reference Range Interpretation Comments NA (test code = 144 mmol/L 135-145 2025631940) K (test code = 3.3 mmol/L 3.5-5.0 L 0457371538) CL (test code = 114 mmol/L 98-108 H 6196174827) CO2 TOTAL (test code = 21 mmol/L 23-31 L 8414251055) AGAP (test code = 2-16 9048671816) BUN (test code = 4 mg/dL 7-23 L 4006735334) GLUCOSE (test code = 71 mg/dL 70-110 4952397343) CREATININE (test code = 0.57 mg/dL 0.50-1.04 1019590505) CALCIUM (test code = 7.8 mg/dL 8.6-10.6 L 1672902922) eGFR (test code = mL/min/1.73m2 6674576949) VIRIDIANA (test code = VIRIDIANA) Association of [...] tests). Lab Interpretation Abnormal (test code = 65447-8) [facility] (Na, K, Cl, CO2, Glucose, BUN, Creatinine, Ca)2020-12-02 20:12:19 Test Item Value Reference Range Interpretation Comments NA (test code = 144 mmol/L 135-145 2432663694) K (test code = 3.3 mmol/L 3.5-5.0 L 7479331393) CL (test code = 114 mmol/L 98-108 H 3642188135) CO2 TOTAL (test code = 21 mmol/L 23-31 L 8754265550) AGAP (test code = 2-16 9753664868) BUN (test code = 4 mg/dL 7-23 L 0757474311) GLUCOSE (test code = 71 mg/dL 70-110 2755321430) CREATININE (test code = 0.57 mg/dL 0.50-1.04 0337393441) CALCIUM (test code = 7.8 mg/dL 8.6-10.6 L 8879599162) eGFR (test code = mL/min/1.73m2 6828235066) VIRIDIANA (test code = VIRIDIANA) Association of [...] tests). Lab Interpretation Abnormal (test code = 26069-8) [facility] [id number] 20:10:53 Test Item Value Reference Range Interpretation Comments PHOSPHORUS (test code = 9205252198) 3.7 mg/dL 2.5-5.0 Lab Interpretation (test code = Normal 48185-9) [facility] [id number] 20:10:53 Test Item Value Reference Range Interpretation Comments PHOSPHORUS (test code = 7168071588) 3.7 mg/dL 2.5-5.0 Lab Interpretation (test code = Normal 68614-3) [facility] (CK)2020-12-02 20:10:47 Test Item Value Reference Range Interpretation Comments CK (test code = 9138821123) 59 U/L 33-194 Lab Interpretation (test code = Normal 67128-3) [facility] (CK)2020-12-02 20:10:47 Test Item Value Reference Range Interpretation Comments CK (test code = 0521339307) 59 U/L 33-194 Lab Interpretation (test code = Normal 43783-5) [facility] with Axrgtmcjdrbh6736-16-02 20:10:42 Test Item Value Reference Range Interpretation [...] RDW-SD (test code = 41.4 fL 38.5-49.0 91382-0) RDW-CV (test code = 13.2 % 11.5-14.0 788-0) PLT (test code = See_Comment L [Automated 777-3) message] The sy stem which generated this result transmitted reference range : 135 - 361 10*3/ ?L. The reference r lorene was not used to interpret this result as normal/abnormal . MPV (test code = 13.3 fL 9.4-13.3 95116-3) NRBC/100 WBC (test See_Comment [Automat ed code = 1039379901) message] The system which generated this result transmitted reference range : 0.0 - 10.0 /100 WBCs. The refer ence range was not u sed to interpret th is result as normal/abnormal . NRBC x10^3 (test code <0.01 See_Comment [Auto mated = 7421662220) message] The s ystem which generated this result transmitted reference range : 10*3/?L. The reference range was not used to interpret this result as normal/abnormal . GRAN MAT (NEUT) % 48.7 % (test code = 770-8) IMM GRAN % (test code 0.40 % = 8476450910) LYMPH % (test code = 39.4 % 736-9) MONO % (test code = 8.9 % 5905-5) EOS % (test code = 2.2 % 713-8) BASO % (test code = 0.4 % 706-2) GRAN MAT x10^3(ANC) 2.67 10*3/uL 1.50-10.30 (test code = 9057047440) IMM GRAN x10^3 (test <0.03 0.00-0.06 code = 4349829681) LYMPH x10^3 (test code 2.16 10*3/uL 0.70-7.40 = 731-0) MONO x10^3 (test code 0.49 10*3/uL 0.00-0.50 = 742-7) EOS x10^3 (test code = 0.12 10*3/uL 0.00-0.40 711-2) BASO x10^3 (test code <0.03 0.00-0.10 = 704-7) Lab Interpretation Abnormal (test code = 16999-9) [facility] with Lnzidfckatqd7230-10-29 20:10:42 Test Item Value Reference Range Interpretation Comments WBC (test code = See_Comment [Automated 7690-2) message] The sy stem which generated this result transmitted reference range : 4.50 - 13.50 10*3/?L. The reference range was not used to interpret this result as normal/abnormal . RBC (test code = See_Comment [Automated 749-8) message] The sy stem which generated this [...] RDW-SD (test code = 41.4 fL 38.5-49.0 69019-2) RDW-CV (test code = 13.2 % 11.5-14.0 788-0) PLT (test code = See_Comment L [Automated 777-3) message] The sy stem which generated this result transmitted reference range : 135 - 361 10*3/ ?L. The reference r lorene was not used to interpret this result as normal/abnormal . MPV (test code = 13.3 fL 9.4-13.3 27063-4) NRBC/100 WBC (test See_Comment [Automat ed code = 4422904178) message] The system which generated this result transmitted reference range : 0.0 - 10.0 /100 WBCs. The refer ence range was not u sed to interpret th is result as normal/abnormal . NRBC x10^3 (test code <0.01 See_Comment [Auto mated = 7315775636) message] The s ystem which generated this result transmitted reference range : 10*3/?L. The reference range was not used to interpret this result as normal/abnormal . GRAN MAT (NEUT) % 48.7 % (test code = 770-8) IMM GRAN % (test code 0.40 % = 3334058237) LYMPH % (test code = 39.4 % 736-9) MONO % (test code = 8.9 % 5905-5) EOS % (test code = 2.2 % 713-8) BASO % (test code = 0.4 % 706-2) GRAN MAT x10^3(ANC) 2.67 10*3/uL 1.50-10.30 (test code = 1662616123) IMM GRAN x10^3 (test <0.03 0.00-0.06 code = 8682064610) LYMPH x10^3 (test code 2.16 10*3/uL 0.70-7.40 = 731-0) MONO x10^3 (test code 0.49 10*3/uL 0.00-0.50 = 742-7) EOS x10^3 (test code = 0.12 10*3/uL 0.00-0.40 711-2) BASO x10^3 (test code <0.03 0.00-0.10 = 704-7) Lab Interpretation Abnormal (test code = 22324-9) [facility] [id number] 16:37:32 Test Item Value Reference Range Interpretation Comments TSH (test code = See_Comment Biotin has been 3567860115) reported to cau se a negative bias, interpret resul ts relative to pat ient's use of biotin. [Automated mess age] The system [employer] generated this result transmitted ref erence range: 0.45 - 4 .70 mIU/L. The refe rence range was not u sed to interpret this result as normal/abnor mal. Lab Interpretation (test Normal code = 35042-9) [facility] Fwixqen9745-35-63 16:37:32 Test Item Value Reference Range Interpretation Comments TSH (test code = See_Comment Biotin has been 8229861827) reported to cau se a negative bias, interpret resul ts relative to pat ient's use of biotin. [Automated mess age] The system [employer] generated this result transmitted ref erence range: 0.45 - 4 .70 mIU/L. The refe rence range was not u sed to interpret this result as normal/abnor mal. Lab Interpretation (test Normal code = 90033-8) [facility] - COMPREHENSIVE DRUG SCREEN W/O [id number] 07:41:34 Test Item Value Reference Range Interpretation Comments AMPHET (test code = Negative Negative 3279433572) FABIO U (test code = Negative Negative 1178742274) BENZO U (test code = Negative Negative 1272053305) Cocaine Metabolite (test Negative Negative code = 1871142635) METHADONE (test code = Negative Negative 8418701621) OPIATES (test code = Negative Negative 3805451543) PCP (test code = Negative Negative 8092685803) THC (test code = Presumptive Positive Negative A 8505483101) VIRIDIANA (test code = VIRIDIANA) Urine Drug [...] testing). Lab Interpretation (test Abnormal code = 91783-7) [facility] - COMPREHENSIVE DRUG SCREEN W/O [id number] 07:41:34 Test Item Value Reference Range Interpretation Comments AMPHET (test code = Negative Negative 2229301919) FABIO U (test code = Negative Negative 0735804989) BENZO U (test code = Negative Negative 7719043559) Cocaine Metabolite (test Negative Negative code = 3444903998) METHADONE (test code = Negative Negative 6578012559) OPIATES (test code = Negative Negative 4486983240) PCP (test code = Negative Negative 3753551380) THC (test code = Presumptive Positive Negative A 3258684681) VIRIDIANA (test code = VIRIDIANA) Urine Drug [...] testing). Lab Interpretation (test Abnormal code = 82982-3) [facility]OLIC PANEL (00623)2020-12-02 07:38:37 Test Item Value Reference Range Interpretation Comments NA (test code = 138 mmol/L 135-145 1340000386) K (test code = 3.8 mmol/L 3.5-5.0 7818064766) CL (test code = 108 mmol/L 98-108 7682229951) CO2 TOTAL (test code = 23 mmol/L 23-31 8818343482) AGAP (test code = 2-16 6240426552) BUN (test code = 5 mg/dL 7-23 L 0615642051) GLUCOSE (test code = 93 mg/dL 70-110 1381049280) CREATININE (test code = 0.61 mg/dL 0.50-1.04 7829323119) TOTAL BILI (test code = 0.7 mg/dL 0.1-1.8 7412594748) CALCIUM (test code = 8.6 mg/dL 8.6-10.6 3044805600) T PROTEIN (test code = 6.5 g/dL 6.3-8.2 4369064598) ALBUMIN (test code = 3.9 g/dL 3.5-5.0 5174291218) ALK PHOS (test code = 56 U/L 34-122 3144878804) ALTv (test code = 15 U/L 5-35 1742-6) AST(SGOT) (test code = 28 U/L 13-40 6439390457) eGFR (test code = mL/min/1.73m2 5993910247) VIRIDIANA (test code = VIRIDIANA) Association of [...] tests). Lab Interpretation Abnormal (test code = 07562-4) [facility]. METABOLIC PANEL (59043)2020-12-02 07:38:37 Test Item Value Reference Range Interpretation Comments NA (test code = 138 mmol/L 135-145 4291794781) K (test code = 3.8 mmol/L 3.5-5.0 6226376575) CL (test code = 108 mmol/L 98-108 6335332584) CO2 TOTAL (test code = 23 mmol/L 23-31 1039770110) AGAP (test code = 2-16 4866203532) BUN (test code = 5 mg/dL 7-23 L 5438911485) GLUCOSE (test code = 93 mg/dL 70-110 4739170250) CREATININE (test code = 0.61 mg/dL 0.50-1.04 9409429252) TOTAL BILI (test code = 0.7 mg/dL 0.1-1.7 7219698406) CALCIUM (test code = 8.6 mg/dL 8.6-10.6 8113291994) T PROTEIN (test code = 6.5 g/dL 6.3-8.2 0517381849) ALBUMIN (test code = 3.9 g/dL 3.5-5.0 6525318144) ALK PHOS (test code = 56 U/L 34-122 7535597022) ALTv (test code = 15 U/L 5-35 1742-6) AST(SGOT) (test code = 28 U/L 13-40 5990001892) eGFR (test code = mL/min/1.73m2 8168603191) VIRIDIANA (test code = VIRIDIANA) Association of [...] tests). Lab Interpretation Abnormal (test code = 68296-5) [facility] [id number] 07:38:17 Test Item Value Reference Range Interpretation Comments CK (test code = 4307732804) 62 U/L 33-194 Lab Interpretation (test code = Normal 50621-8) [facility] [id number] 07:38:17 Test Item Value Reference Range Interpretation Comments CK (test code = 9661522411) 62 U/L 33-194 Lab Interpretation (test code = Normal 27689-6) [facility] 07:07:10 Test Item Value Reference Range Interpretation Comments APPEARANCE (test code = Cloudy Clear A 9365599115) COLOR (test code = Yellow Yellow 3879499348) PH (test code = 4.8-8.0 6074679687) SP GRAVITY (test code = 1.003-1.030 1956264672) GLU U QUAL (test code = Normal Normal 9690176601) BLOOD (test code = Negative Negative 9205124626) KETONES (test code = 5 mg/dL Negative A 5357955883) PROTEIN (test code = 100 mg/dL Negative A 2887-8) UROBILIN (test code = 2.0 mg/dL Normal A 0572986875) BILIRUBIN (test code = Negative Negative 3741696094) NITRITE (test code = Negative Negative 6113766307) LEUK DENNIS (test code = 500/uL Negative A 3250425258) RBC/HPF (test code = See_Comment [Autom ated message] 9490817797) The system [employer] generated this result transmit carole reference range : 0 - 3 HPF. The refe rence range was not u sed to interpret th is result as normal/abnormal . WBC/HPF (test code = See_Comment H [Autom ated message] 2632639597) The system [employer] generated this result transmit carole reference range : 0 - 5 HPF. The refe rence range was not u sed to interpret th is result as normal/abnormal . BACTERIA (test code = Many Negative A 2149429159) MUCOUS (test code = Moderate Negative LPF A 4517526118) SQ EPITH (test code = HPF 1052837520) CA OXALATE (test code = See_Comment [Au tomated message] 9925501803) The system [employer] generated this result transmit carole reference range : <=1 HPF. The refere nce range was not u sed to interpret th is result as normal/abnormal . HYAL CAST (test code = See_Comment H [Aut omated message] 1809674160) The system [employer] generated this result transmit carole reference range : <=2 LPF. The refere nce range was not u sed to interpret th is result as normal/abnormal . Lab Interpretation (test Abnormal code = 97668-3) [facility] 07:07:10 Test Item Value Reference Range Interpretation Comments APPEARANCE (test code = Cloudy Clear A 9316536691) COLOR (test code = Yellow Yellow 5589230503) PH (test code = 4.8-8.0 0912325188) SP GRAVITY (test code = 1.003-1.030 8895069544) GLU U QUAL (test code = Normal Normal 7823196676) BLOOD (test code = Negative Negative 9103894193) KETONES (test code = 5 mg/dL Negative A 1088707824) PROTEIN (test code = 100 mg/dL Negative A 2887-8) UROBILIN (test code = 2.0 mg/dL Normal A 2054170316) BILIRUBIN (test code = Negative Negative 1330002681) NITRITE (test code = Negative Negative 1691096818) LEUK DENNIS (test code = 500/uL Negative A 1617537422) RBC/HPF (test code = See_Comment [Autom ated message] 7003380752) The system [employer] generated this result transmit carole reference range : 0 - 3 HPF. The refe rence range was not u sed to interpret th is result as normal/abnormal . WBC/HPF (test code = See_Comment H [Autom ated message] 1058002372) The system [employer] generated this result transmit carole reference range : 0 - 5 HPF. The refe rence range was not u sed to interpret th is result as normal/abnormal . BACTERIA (test code = Many Negative A 8366908945) MUCOUS (test code = Moderate Negative LPF A 7524296259) SQ EPITH (test code = HPF 3114134141) CA OXALATE (test code = See_Comment [Au tomated message] 8598632399) The system [employer] generated this result transmit carole reference range : <=1 HPF. The refere nce range was not u sed to interpret th is result as normal/abnormal . HYAL CAST (test code = See_Comment H [Aut omated message] 3201077373) The system [employer] generated this result transmit carole reference range : <=2 LPF. The refere nce range was not u sed to interpret th is result as normal/abnormal . Lab Interpretation (test Abnormal code = 66324-3) [facility]2020-12-02 06:56:19 Test Item Value Reference Range Interpretation Comments SARS-CoV-2 Rapid ID NOW Not Detected Not Detected (test code = 20203-9) VIRIDIANA (test code = VIRIDIANA) ID NOW COVID-19 Assay is an isothermal nucleic acid amplification test intended for the qualitative detection of nucleic acid from SARS-CoV-2 viral RNA in nasopharyngeal ([employer]) specimens. It is used under Emergency Use [...] indicated. Lab Interpretation Normal (test code = 40422-3) [facility]2020-12-02 06:56:19 Test Item Value Reference Range Interpretation Comments SARS-CoV-2 Rapid ID NOW Not Detected Not Detected (test code = 61706-7) VIRIDIANA (test code = VIRIDIANA) ID NOW COVID-19 Assay is an isothermal nucleic acid amplification test intended for the qualitative detection of nucleic acid from SARS-CoV-2 viral RNA in nasopharyngeal ([employer]) specimens. It is used under Emergency Use [...] indicated. Lab Interpretation Normal (test code = 69040-7) [facility] WITH [id number] 06:42:15 Test Item Value Reference Range Interpretation Comments WBC (test code = See_Comment [Automated message] 6690-2) The system [employer] generated this result transmitted ref erence range: 4.50 - 1 3.50 10*3/?L. The re ference range was not u sed to interpret this result as normal/abnor mal. RBC (test code = See_Comment [Automated message] 789-8) The system [employer] generated this result transmitted ref erence range: [...] RDW-SD (test code 40.5 fL 38.5-49.0 = 69861-4) RDW-CV (test code 13.1 % 11.5-14.0 = 788-0) PLT (test code = See_Comment [Automated message] 777-3) The system [employer] generated this result transmitted ref erence range: 135 - 36 1 10*3/?L. The re ference range was not u sed to interpret this result as normal/abnor mal. MPV (test code = 12.9 fL 9.4-13.3 00143-4) NRBC/100 WBC (test See_Comment [Automat ed message] code = 3285048772) The syste m which generated this result transmitted ref erence range: 0.0 - 10 .0 /100 WBCs. The refer ence range was not u sed to interpret this result as normal/abnor mal. NRBC x10^3 (test <0.01 See_Comment [Automated message] code = 7972245156) The syste m which generated this result transmitted ref erence range: 10*3/?L. The reference range was not used to interpr et this result as normal/abnormal . GRAN MAT (NEUT) % 63.7 % (test code = 770-8) IMM GRAN % (test 0.40 % code = 0327096343) LYMPH % (test code 27.4 % = 736-9) MONO % (test code 7.2 % = 5905-5) EOS % (test code = 1.0 % 713-8) BASO % (test code 0.3 % = 706-2) GRAN MAT 4.40 10*3/uL 1.50-10.30 x10^3(ANC) (test code = 0692531514) IMM GRAN x10^3 0.03 10*3/uL 0.00-0.06 (test code = 7461964509) LYMPH x10^3 (test 1.89 10*3/uL 0.70-7.40 code = 731-0) MONO x10^3 (test 0.50 10*3/uL 0.00-0.50 code = 742-7) EOS x10^3 (test 0.07 10*3/uL 0.00-0.40 code = 711-2) BASO x10^3 (test <0.03 0.00-0.10 code = 704-7) [facility] WITH [id number] 06:42:15 Test Item Value Reference Range Interpretation Comments WBC (test code = See_Comment [Automated message] 7590-2) The system [employer] generated this result transmitted ref erence range: 4.50 - 1 3.50 10*3/?L. The re ference range was not u sed to interpret this result as normal/abnor mal. RBC (test code = See_Comment [Automated message] 649-8) The system [employer] generated this result transmitted ref erence range: [...] RDW-SD (test code 40.5 fL 38.5-49.0 = 23678-3) RDW-CV (test code 13.1 % 11.5-14.0 = 788-0) PLT (test code = See_Comment [Automated message] 577-3) The system [employer] generated this result transmitted ref erence range: 135 - 36 1 10*3/?L. The re ference range was not u sed to interpret this result as normal/abnor mal. MPV (test code = 12.9 fL 9.4-13.3 35704-3) NRBC/100 WBC (test See_Comment [Automat ed message] code = 7378192567) The syste m which generated this result transmitted ref erence range: 0.0 - 10 .0 /100 WBCs. The refer ence range was not u sed to interpret this result as normal/abnor mal. NRBC x10^3 (test <0.01 See_Comment [Automated message] code = 6123522912) The syste m which generated this result transmitted ref erence range: 10*3/?L. The reference range was not used to interpr et this result as normal/abnormal . GRAN MAT (NEUT) % 63.7 % (test code = 770-8) IMM GRAN % (test 0.40 % code = 9018886800) LYMPH % (test code 27.4 % = 736-9) MONO % (test code 7.2 % = 5905-5) EOS % (test code = 1.0 % 713-8) BASO % (test code 0.3 % = 706-2) GRAN MAT 4.40 10*3/uL 1.50-10.30 x10^3(ANC) (test code = 0107606476) IMM GRAN x10^3 0.03 10*3/uL 0.00-0.06 (test code = 9454386407) LYMPH x10^3 (test 1.89 10*3/uL 0.70-7.40 code = 731-0) MONO x10^3 (test 0.50 10*3/uL 0.00-0.50 code = 742-7) EOS x10^3 (test 0.07 10*3/uL 0.00-0.40 code = 711-2) BASO x10^3 (test <0.03 0.00-0.10 code = 704-7) [facility] [id number] 06:36:00 Test Item Value Reference Range Interpretation Comments POCT PREG (test code = 1605) neg On board controls acceptable with yes C Line (test code = 3574) POCT PREG LOT # (test code = [id number]) POCT PREG TEST DATE (test code = 3576) Lab Interpretation (test code = Normal 43102-8) [facility] [id number] 06:36:00 Test Item Value Reference Range Interpretation Comments POCT PREG (test code = 1605) neg On board controls acceptable with yes C Line (test code = 3574) POCT PREG LOT # (test code = [id number]) POCT PREG TEST DATE (test code = 3576) Lab Interpretation (test code = Normal 75943-0) [facility] [id number] 06:31:07 Test Item Value Reference Range Interpretation Comments LACTIC ACID (test code = 2.66 mmol/L 0.50-2.20 H 9276455356) Lab Interpretation (test code = Abnormal 12359-4) [facility] [id number] 06:31:07 Test Item Value Reference Range Interpretation Comments LACTIC ACID (test code = 2.66 mmol/L 0.50-2.20 H 8464576332) Lab Interpretation (test code = Abnormal 87674-0) [facility]AT[facility] [id number] 08:22:54 Test Item Value Reference Range Interpretation Comments CK (test code = 1487023360) 101 U/L 33-194 Lab Interpretation (test code = Normal 15486-3) [facility] [id number] 08:22:54 Test Item Value Reference Range Interpretation Comments CK (test code = 8749733296) 101 U/L 33-194 Lab Interpretation (test code = Normal 12627-0) [facility] HEAD WO [id number] 07:07:23 Impression: No CT evidence for acute intracranial abnormality. RL: 460 AFC: [id number] Ordering physician: CHAUNCEY SMITH Indication: Altered level [...] evidence for acute intracranial abnormal ity.RL: 460AFC: [id number] signed by Pooja Rowland MD, PhD at 11/30/2020 2:07 [facility]CT [facility] [id number] 07:07:23Impression: No CT evidence for acute intracranial abnormality. RL: 460 AFC: [id number] Ordering physician: CHAUNCEY SMITH Indication: Altered level [...] evidence for acute intracranial abnormal ity.RL: 460AF: [id number] signed by Pooja Rowland MD, PhD at 11/30/2020 2:07 [facility]DR[facility] URINE 2020-11-30 05:54:09 Test Item Value Reference Range Interpretation Comments AMPHET (test code = Negative Negative 9704284033) FABIO U (test code = Negative Negative 7506177137) BENZO U (test code = Presumptive Positive Negative A 8851896728) Cocaine Metabolite (test Negative Negative code = 4493908823) METHADONE (test code = Negative Negative 0863909154) OPIATES (test code = Negative Negative 9681331256) PCP (test code = Negative Negative 9295018103) THC (test code = Presumptive Positive Negative A 2252025810) VIRIDIANA (test code = VIRIDIANA) Urine Drug [...] testing). Lab Interpretation (test Abnormal code = 56816-3) [facility] [id number] 05:54:09 Test Item Value Reference Range Interpretation Comments AMPHET (test code = Negative Negative 7284447702) FABIO U (test code = Negative Negative 9582825720) BENZO U (test code = Presumptive Positive Negative A 2479220992) Cocaine Metabolite (test Negative Negative code = 6865684525) METHADONE (test code = Negative Negative 8445807849) OPIATES (test code = Negative Negative 4948608550) PCP (test code = Negative Negative 4364278711) THC (test code = Presumptive Positive Negative A 2733797206) VIRIDIANA (test code = VIRIDIANA) Urine Drug [...] testing). Lab Interpretation (test Abnormal code = 99795-8) [facility]2020-11-30 05:49:31 Test Item Value Reference Range Interpretation Comments SARS-CoV-2 Rapid ID NOW Not Detected Not Detected (test code = 88386-9) VIRIDIANA (test code = VIRIDIANA) ID NOW COVID-19 Assay is an isothermal nucleic acid amplification test intended for the qualitative detection of nucleic acid from SARS-CoV-2 viral RNA in nasopharyngeal ([employer]) specimens. It is used under Emergency Use [...] indicated. Lab Interpretation Normal (test code = 27782-8) [facility]2020-11-30 05:49:31 Test Item Value Reference Range Interpretation Comments SARS-CoV-2 Rapid ID NOW Not Detected Not Detected (test code = 92651-3) VIRIDIANA (test code = VIRIDIANA) ID NOW COVID-19 Assay is an isothermal nucleic acid amplification test intended for the qualitative detection of nucleic acid from SARS-CoV-2 viral RNA in nasopharyngeal ([employer]) specimens. It is used under Emergency Use [...] indicated. Lab Interpretation Normal (test code = 16751-2) [facility] 05:49:21 Test Item Value Reference Range Interpretation Comments APPEARANCE (test code = Hazy Clear A 6550431417) COLOR (test code = Lazara Yellow A 9597015777) PH (test code = 4.8-8.0 7516455954) SP GRAVITY (test code = 1.003-1.030 5072740619) GLU U QUAL (test code = Normal Normal 2569717074) BLOOD (test code = Negative Negative Interfere nce from 3543526145) ascorbic acid m ay cause false neg ative results. KETONES (test code = 20 mg/dL Negative A 7049652951) PROTEIN (test code = 30 mg/dL Negative A 2887-8) UROBILIN (test code = 4.0 mg/dL Normal A 9003278137) BILIRUBIN (test code = Negative Negative 6122038718) NITRITE (test code = Negative Negative 5840274659) LEUK DENNIS (test code = 500/uL Negative A 4827345170) RBC/HPF (test code = See_Comment H [Autom ated message] 3480327490) The system [employer] generated this result transmitted ref erence range: 0 - 3 HP F. The reference range was not used to int erpret this result as normal/abnormal . WBC/HPF (test code = See_Comment H [Autom ated message] 1148672811) The system [employer] generated this result transmitted ref erence range: 0 - 5 HP F. The reference range was not used to int erpret this result as normal/abnormal . BACTERIA (test code = Few Negative A 7242141208) MUCOUS (test code = Slight Negative LPF A 0765548958) SQ EPITH (test code = HPF 6415590890) Lab Interpretation Abnormal (test code = 09272-9) [facility] 05:49:21 Test Item Value Reference Range Interpretation Comments APPEARANCE (test code = Hazy Clear A 9519494539) COLOR (test code = Lazara Yellow A 7569199808) PH (test code = 4.8-8.0 0562146956) SP GRAVITY (test code = 1.003-1.030 9873266182) GLU U QUAL (test code = Normal Normal 1766746395) BLOOD (test code = Negative Negative Interfere nce from 2491702988) ascorbic acid m ay cause false neg ative results. KETONES (test code = 20 mg/dL Negative A 4539388862) PROTEIN (test code = 30 mg/dL Negative A 2887-8) UROBILIN (test code = 4.0 mg/dL Normal A 6505508501) BILIRUBIN (test code = Negative Negative 8112016307) NITRITE (test code = Negative Negative 3953339896) LEUK DENNIS (test code = 500/uL Negative A 2311481172) RBC/HPF (test code = See_Comment H [Autom ated message] 9084031829) The system [employer] generated this result transmitted ref erence range: 0 - 3 HP F. The reference range was not used to int erpret this result as normal/abnormal . WBC/HPF (test code = See_Comment H [Autom ated message] 4746765924) The system [employer] generated this result transmitted ref erence range: 0 - 5 HP F. The reference range was not used to int erpret this result as normal/abnormal . BACTERIA (test code = Few Negative A 1763961694) MUCOUS (test code = Slight Negative LPF A 3966135190) SQ EPITH (test code = HPF 3495536012) Lab Interpretation Abnormal (test code = 82176-9) [facility] 05:47:51 Test Item Value Reference Range Interpretation Comments MAGNESIUM (test code = 4941168258) 2.1 mg/dL 1.7-2.4 Lab Interpretation (test code = Normal 21193-8) [facility] 05[facility]47[facility]51 Test Item Value Reference Range Interpretation Comments MAGNESIUM (test code = 8053248575) 2.1 mg/dL 1.7-2.4 Lab Interpretation (test code = Normal 21115-2) [facility]. METABOLIC PANEL (85201)2020-11-30 05:47:35 Test Item Value Reference Range Interpretation Comments NA (test code = 139 mmol/L 135-145 5548098294) K (test code = 3.4 mmol/L 3.5-5.0 L 2723684087) CL (test code = 105 mmol/L 98-108 1520108806) CO2 TOTAL (test code = 24 mmol/L 23-31 5414236694) AGAP (test code = 2-16 3268551540) BUN (test code = 8 mg/dL 7-23 4688765578) GLUCOSE (test code = 84 mg/dL 70-110 0861910934) CREATININE (test code = 0.70 mg/dL 0.50-1.04 9153234307) TOTAL BILI (test code = 0.6 mg/dL 0.1-1.7 0761823189) CALCIUM (test code = 9.3 mg/dL 8.6-10.6 4694551298) T PROTEIN (test code = 7.7 g/dL 6.3-8.2 6459845737) ALBUMIN (test code = 4.6 g/dL 3.5-5.0 9683538439) ALK PHOS (test code = 76 U/L 34-122 8880948973) ALTv (test code = 19 U/L 5-35 1742-6) AST(SGOT) (test code = 25 U/L 13-40 7759311165) eGFR (test code = mL/min/1.73m2 5103326731) VIRIDIANA (test code = VIRIDIANA) Association of [...] tests). Lab Interpretation Abnormal (test code = 88993-2) [facility]. METABOLIC PANEL (11892)2020-11-30 05:47:35 Test Item Value Reference Range Interpretation Comments NA (test code = 139 mmol/L 135-145 5581853259) K (test code = 3.4 mmol/L 3.5-5.0 L 5365972562) CL (test code = 105 mmol/L 98-108 0627260245) CO2 TOTAL (test code = 24 mmol/L 23-31 0504289904) AGAP (test code = 2-16 5042505616) BUN (test code = 8 mg/dL 7-23 4645942357) GLUCOSE (test code = 84 mg/dL 70-110 2023256154) CREATININE (test code = 0.70 mg/dL 0.50-1.04 3982265666) TOTAL BILI (test code = 0.6 mg/dL 0.1-1.2 0306753155) CALCIUM (test code = 9.3 mg/dL 8.6-10.6 5326230805) T PROTEIN (test code = 7.7 g/dL 6.3-8.2 5949438484) ALBUMIN (test code = 4.6 g/dL 3.5-5.0 4590265035) ALK PHOS (test code = 76 U/L 34-122 9971923206) ALTv (test code = 19 U/L 5-35 1742-6) AST(SGOT) (test code = 25 U/L 13-40 3503623488) eGFR (test code = mL/min/1.73m2 6504152886) VIRIDIANA (test code = VIRIDIANA) Association of [...] tests). Lab Interpretation Abnormal (test code = 82725-5) [facility] GLUCOSE (AUTOMATED)2020-11-30 05:45:23 Test Item Value Reference Range Interpretation Comments POCT GLU (test code = 9721716498) 83 mg/dL 70-110 Lab Interpretation (test code = Normal 45873-5) [facility] GLUCOSE (AUTOMATED)2020-11-30 05:45:23 Test Item Value Reference Range Interpretation Comments POCT GLU (test code = 0068770393) 83 mg/dL 70-110 Lab Interpretation (test code = Normal 63476-3) [facility] + LACTIC [id number] 05:35:20 Test Item Value Reference Range Interpretation Comments PH (test code = 2) 7.35-7.45 PCO2 (test code = See_Comment [Automat ed 1739238187) message] The sy stem which generated this result transmitted reference range : 35 - 45 mmHg. The reference range was not used to interpret this result as normal/abnormal . PO2 (test code = See_Comment H [Automated 8474171601) message] The sy stem which generated this result transmitted reference range : 80 - 100 mmHg. The reference range was not used to interpret this result as normal/abnormal . HCO3 (test code = See_Comment [Automate d 0279383691) message] The sy stem which generated this result transmitted reference range : 22 - 26 mEq/L. The reference range was not used to interpret this result as normal/abnormal . BE (test code = See_Comment [Automated 2299325904) message] The sy stem which generated this result transmitted reference range : -3.0 - 3.0 mEq/ L. The reference r lorene was not used to interpret this result as normal/abnormal . THB (test code = 13.4 g/dL 12.0-16.0 3756719131) %O2HB (test code = 98.5 % 94.0-99.0 3520140104) %COHB ART (test code = 0.0 % 0.0-1.5 4313890963) %METHB ART (test code = 0.3 % 0.4-1.5 L 2533936170) VOL%O2 ART (test code = 18.8 % 15.0-23.0 1755930718) NA (test code = 137 mmol/L 135-145 0706567368) K+ (test code = 3.5 mmol/L 3.5-5.0 5350313543) AC CA IONZ (test code = 4.60 mg/dL 4.50-5.30 7999757139) GLUCOSE (test code = 81 mg/dL 70-110 5444507007) LACTIC ACID (test code 0.87 mmol/L 0.50-2.20 = 2314663890) Lab Interpretation Abnormal (test code = 30306-0) [facility] LACTIC [id number] 05:35:20 Test Item Value Reference Range Interpretation Comments PH (test code = 2) 7.35-7.45 PCO2 (test code = See_Comment [Automat ed 8733369369) message] The sy stem which generated this result transmitted reference range : 35 - 45 mmHg. The reference range was not used to interpret this result as normal/abnormal . PO2 (test code = See_Comment H [Automated 0068011289) message] The sy stem which generated this result transmitted reference range : 80 - 100 mmHg. The reference range was not used to interpret this result as normal/abnormal . HCO3 (test code = See_Comment [Automate d 7977319638) message] The sy stem which generated this result transmitted reference range : 22 - 26 mEq/L. The reference range was not used to interpret this result as normal/abnormal . BE (test code = See_Comment [Automated 5084771618) message] The sy stem which generated this result transmitted reference range : -3.0 - 3.0 mEq/ L. The reference r lorene was not used to interpret this result as normal/abnormal . THB (test code = 13.4 g/dL 12.0-16.0 7076824705) %O2HB (test code = 98.5 % 94.0-99.0 2051270610) %COHB ART (test code = 0.0 % 0.0-1.5 3847053630) %METHB ART (test code = 0.3 % 0.4-1.5 L 3091333450) VOL%O2 ART (test code = 18.8 % 15.0-23.0 3947883144) NA (test code = 137 mmol/L 135-145 0051568871) K+ (test code = 3.5 mmol/L 3.5-5.0 5773239620) AC CA IONZ (test code = 4.60 mg/dL 4.50-5.30 3084783455) GLUCOSE (test code = 81 mg/dL 70-110 3237981417) LACTIC ACID (test code 0.87 mmol/L 0.50-2.20 = 8415439609) Lab Interpretation Abnormal (test code = 10009-4) [facility] WITH [id number] 05:33:34 Test Item Value Reference Range Interpretation [...] RDW-SD (test code = 41.1 fL 38.5-49.0 49215-4) RDW-CV (test code = 13.2 % 11.5-14.0 788-0) PLT (test code = See_Comment [Automated 777-3) message] The sy stem which generated this result transmitted reference range : 135 - 361 10*3/ ?L. The reference r lorene was not used to interpret this result as normal/abnormal . MPV (test code = 12.5 fL 9.4-13.3 88121-0) NRBC/100 WBC (test See_Comment [Automat ed code = 3201882794) message] The system which generated this result transmitted reference range : 0.0 - 10.0 /100 WBCs. The refer ence range was not u sed to interpret th is result as normal/abnormal . NRBC x10^3 (test code <0.01 See_Comment [Auto mated = 1572051815) message] The s ystem which generated this result transmitted reference range : 10*3/?L. The reference range was not used to interpret this result as normal/abnormal . GRAN MAT (NEUT) % 59.1 % (test code = 770-8) IMM GRAN % (test code 0.40 % = 8017916916) LYMPH % (test code = 31.7 % 736-9) MONO % (test code = 7.0 % 5905-5) EOS % (test code = 1.3 % 713-8) BASO % (test code = 0.5 % 706-2) GRAN MAT x10^3(ANC) 4.58 10*3/uL 1.50-10.30 (test code = 8771620834) IMM GRAN x10^3 (test 0.03 10*3/uL 0.00-0.06 code = 7603222724) LYMPH x10^3 (test code 2.45 10*3/uL 0.70-7.40 = 731-0) MONO x10^3 (test code 0.54 10*3/uL 0.00-0.50 H = 742-7) EOS x10^3 (test code = 0.10 10*3/uL 0.00-0.40 711-2) BASO x10^3 (test code 0.04 10*3/uL 0.00-0.10 = 704-7) Lab Interpretation Abnormal (test code = 80798-8) [facility] WITH [id number] 05:33:34 Test Item Value Reference Range Interpretation Comments WBC (test code = See_Comment [Automated 90-2) message] The sy stem which generated this result transmitted reference range : 4.50 - 13.50 10*3/?L. The reference range was not used to interpret this result as normal/abnormal . RBC (test code = See_Comment [Automated 059-8) message] The sy stem which generated this [...] RDW-SD (test code = 41.1 fL 38.5-49.0 50030-5) RDW-CV (test code = 13.2 % 11.5-14.0 788-0) PLT (test code = See_Comment [Automated 777-3) message] The sy stem which generated this result transmitted reference range : 135 - 361 10*3/ ?L. The reference r lorene was not used to interpret this result as normal/abnormal . MPV (test code = 12.5 fL 9.4-13.3 89462-3) NRBC/100 WBC (test See_Comment [Automat ed code = 2888189934) message] The system which generated this result transmitted reference range : 0.0 - 10.0 /100 WBCs. The refer ence range was not u sed to interpret th is result as normal/abnormal . NRBC x10^3 (test code <0.01 See_Comment [Auto mated = 8854539726) message] The s ystem which generated this result transmitted reference range : 10*3/?L. The reference range was not used to interpret this result as normal/abnormal . GRAN MAT (NEUT) % 59.1 % (test code = 770-8) IMM GRAN % (test code 0.40 % = 5131313238) LYMPH % (test code = 31.7 % 736-9) MONO % (test code = 7.0 % 5905-5) EOS % (test code = 1.3 % 713-8) BASO % (test code = 0.5 % 706-2) GRAN MAT x10^3(ANC) 4.58 10*3/uL 1.50-10.30 (test code = 5944996516) IMM GRAN x10^3 (test 0.03 10*3/uL 0.00-0.06 code = 5019452173) LYMPH x10^3 (test code 2.45 10*3/uL 0.70-7.40 = 731-0) MONO x10^3 (test code 0.54 10*3/uL 0.00-0.50 H = 742-7) EOS x10^3 (test code = 0.10 10*3/uL 0.00-0.40 711-2) BASO x10^3 (test code 0.04 10*3/uL 0.00-0.10 = 704-7) Lab Interpretation Abnormal (test code = 77843-2) [facility] GLUCOSE(AGE >30DAYS)2020-11-30 05:31:00 Test Item Value Reference Range Interpretation Comments POCT Glu (age>30days) (test code = 83 mg/dL 70-110 3342) Lab Interpretation (test code = Normal 18332-7) [facility] GLUCOSE(AGE >30DAYS)2020-11-30 05:31:00 Test Item Value Reference Range Interpretation Comments POCT Glu (age>30days) (test code = 83 mg/dL 70-110 3342) Lab Interpretation (test code = Normal 35631-6) [facility] [id number] 05:26:00 Test Item Value Reference Range Interpretation Comments POCT PREG (test code = 1605) NEGATIVE On board controls acceptable with POSITIVE C Line (test code = 3574) POCT PREG LOT # (test code = 3575) [id number] POCT PREG TEST DATE (test 03/22/2022 code = 3576) Lab Interpretation (test code = Normal 45011-3) [facility] [id number] 05:26:00 Test Item Value Reference Range Interpretation Comments POCT PREG (test code = 1605) NEGATIVE On board controls acceptable with POSITIVE C Line (test code = 3574) POCT PREG LOT # (test code = 3575) [id number] POCT PREG TEST DATE (test 03/22/2022 code = 3576) Lab Interpretation (test code = Normal 31280-1) [id number] 04:38:43 1. No intracranial abnormalities.2. Left parietal [...] within normal limits for the patient's age. [facility], Radiant Results Inft User - 05/28/2019 10:39PM CSTORDERING CLINICIAN: ALEC BARDALESECHNIQUE: Axial scanning of the brain was performed [...] with no skull fractureRL: [id number] of report [facility] C[facility] 3 [id number] 04:36:57Unremarkable cervical spine radiographs RL: [id number] End of report ORDERING PHYSICIAN: JACKY RIVERA TECHNIQUE: Cervical spine 3 views HISTORY: Fall, neck injury COMPARISON: None FINDINGS:The alignment of the cervical spine is normal. There are no displaced fractures. The prevertebral soft tissues are normal. [facility], Radiant Results Inft User- 05/28/2019 10:38 PM CSTORDERING PHYSICIAN: ALEC TRIANAIQUE: Cervical spine 3 viewsHISTORY:Fall, neck injuryCOMPARISON: NoneFINDINGS:The alignment of the cervical spine is normal.There are nodisplaced fractures.The prevertebral soft tissues are normal.IMPRESSIONUnremarkable cervical spine radiographsRL: [id number] of report [facility]"
[2021-08-12] MEDS ORDERED: ZIPRASIDONE MESYLA 20 MG/VIAL IM ONE (20:08)
[2021-08-12] MEDS ORDERED: WATER FOR INJ,STERILE 10 ML ONE (20:08)
[2021-08-12 21:04] LABS: Urine Blood Negative (Negative); Urine Glucose Negative (Negative); Urine Protein Negative (Negative); Urine Specific Gravity >=1.030 (1.005-1.030)
[2021-08-12 21:07] LABS: Protime INR 1.02
[2021-08-12 21:09] LABS: Absolute Lymphocytes (CBC) 2.1 K/uL (0.7-4.9); Hematocrit 40.4 % (36.0-45.0); Lymphocytes % 29.6 % (15.3-44.8); MPV 10.1 fL (7.6-11.3); RBC Red Blood Cell Count 4.59 M/uL (3.86-4.86)
[2021-08-12 21:40] LABS: Barbiturates NEGATIVE (NEGATIVE); Benzodiazepines NEGATIVE (NEGATIVE); Cocaine NEGATIVE (NEGATIVE); METHAMPHETAM NEGATIVE (NEGATIVE); Methadone NEGATIVE (NEGATIVE); Opiates NEGATIVE (NEGATIVE); Phencyclidine NEGATIVE (NEGATIVE); THC Cannibis POSITIVE (NEGATIVE)
[2021-08-12 21:41] LABS: ALT/SGPT 14 U/L (12-78); AST/SGOT 13 U/L (15-37); Albumin 3.9 g/dL (3.4-5.0); Alkaline Phosphatase 65 U/L (45-117); BUN Blood Urea Nitrogen 8 mg/dL (7-18); Bicarbonate 26 mmol/L (21-32); Bilirubin Total 0.2 mg/dL (0.2-1.0); Glomerular Filtration Rate 131 ml/min (=/>90); Glucose Level 89 mg/dL (74-106); Potassium 3.4 mmol/L (3.5-5.1); Protein, Total 6.8 g/dL (6.4-8.2); Sodium Level 140 mmol/L (136-145)
[2021-08-12 21:42] LABS: Bilirubin Direct < 0.1 mg/dL (0-0.2)
[2021-08-12] MEDS ORDERED: DIPHENHYDRAMINE 50 MG/ML VIAL ONE (22:28)
[2021-08-12] MEDS ORDERED: LORazepam 2 MG/ML VIAL ONE (22:28)
[2021-08-12 23:51] LABS: Urine Specific Gravity/Preg >1.030 (1.005-1.030)
--- NOTE | 2021-08-13 00:45 | EDPHYS ---
Physician Documentation [facility] Name: Sofie Jensen Age: 20 yrs Sex: Female : 2000 Arrival Date: 08/12/2021 Time: 18:42 Bed 13 Private MD: ED Physician Terry Elliott HPI: 08/11 19:15 This 20 yrs old Female presents to ER via EMS with complaints of Seizure. cp 08/12 19:15 The patient presents after having a single isolated seizure, that lasted an unknown cp period of time, the episode(s) was witnessed, by family. 19:15 Character of seizure(s): Loss of consciousness: the patient experienced loss of cp consciousness, brief. Seizure onset: just prior to arrival. Context: the seizure(s) was witnessed, by family, Contributing factors: Patient reportedly attempted to hang herself from tree. Patient has [facility] from [facility]. Associated injury: The patient did not suffer any apparent associated injury. Current symptoms: Currently, the patient is not experiencing any symptoms. Historical: - Allergies: 18:46 Moultrie And Derivatives; iw - PMHx: 18:46 Asthma; Seizure; iw - Immunization history:: Client reports having NOT received the Covid vaccine. - Social history:: Smoking status: Reported history of juuling and/or vaping. ROS: 19:20 Constitutional: Negative for body aches, chills, fever, poor PO intake. cp 19:20 Eyes: Negative for injury, pain, redness, and discharge. cp 19:20 ENT: Negative for drainage from ear(s), ear pain, sore throat, difficulty swallowing, difficulty handling secretions. 19:20 Neck: Negative for pain with movement, pain at rest, tenderness, bony tenderness. 19:20 Cardiovascular: Negative for chest pain, palpitations. 19:20 Respiratory: Negative for cough, shortness of breath, wheezing. 19:20 Abdomen/GI: Negative for abdominal pain, vomiting, diarrhea, constipation. 19:20 Back: Negative for pain at rest, pain with movement. 19:20 Neuro: Positive for history of seizure, Negative for altered mental status, headache, weakness. 19:20 All other systems are negative. Exam: 19:25 Constitutional: The patient appears in no acute distress, alert, awake, cp non-diaphoretic, non-toxic, well developed, well nourished. 19:25 Head/Face: Normocephalic, atraumatic. cp 19:25 Eyes: Periorbital structures: appear normal, Pupils: equal, round, and reactive to light and accomodation, Extraocular movements: intact throughout, Conjunctiva: normal, no exudate, no injection, Sclera: no appreciated abnormality, Lids and lashes: appear normal, bilaterally. 19:25 ENT: External ear(s): are unremarkable, Nose: is normal, Mouth: Lips: moist, Oral mucosa: pink and intact, moist, Posterior pharynx: Airway: no evidence of obstruction, patent. 19:25 Neck: External neck: abrasion(s), superficial, that are mild, right lateral neck, C-spine: vertebral tenderness, is not appreciated, crepitus, is not appreciated, ROM/movement: is normal, is supple, without pain, no range of motions limitations, no nuchal rigidity. 19:25 Chest/axilla: Inspection: normal. 19:25 Cardiovascular: Rate: normal, Rhythm: regular. 19:25 Respiratory: the patient does not display signs of respiratory distress, Respirations: normal, no use of accessory muscles, no retractions, labored breathing, is not present, Breath sounds: are clear throughout, no decreased breath sounds, no stridor, no wheezing. 19:25 Abdomen/GI: Inspection: abdomen appears normal, Palpation: abdomen is soft and non-tender, in all quadrants. 19:25 Back: pain, is absent, ROM is normal. 19:25 Neuro: Orientation: to person, place \\T\\ time. Mentation: is normal, Cerebellar function: is grossly normal, Motor: moves all fours, strength is normal, Sensation: is normal. 19:25 Psych: Behavior/mood is uncooperative, Affect is animated, Oriented to person, place, time, Judgement / Insight is normal. Delusions/hallucinations are not present. 21:12 ECG was reviewed by the Attending Physician. cp Vital Signs: 18:44 BP 113 / 69; Pulse 70; Resp 16; Temp 98.0; Pulse Ox 100% on R/A; Weight 72.57 kg; iw Height 5 ft. 0 in. (152.40 cm); 21:17 BP 100 / 66; Pulse 72; Resp 16 S; Temp 97.5; Pulse Ox 100% on R/A; wm 23:46 BP 100 / 58; Pulse 68; Resp 18; Temp 97.6(O); Pulse Ox 100% on R/A; ld1 08/13 01:00 BP 102 / 59; Pulse 66; Resp 17; Pulse Ox 100% on R/A; Pain 0/10; ld1 06:48 BP 99 / 55; Pulse 58; Resp 16; Temp 97.5; Pulse Ox 98% on R/A; wm 07:30 BP 100 / 67; Pulse 52; Resp 16; Temp 98; Pulse Ox 100% on R/A; kj1 17:51 BP 108 / 76 LA Sitting (auto/reg); Pulse 71 LA; Resp 16 S; Temp 98.3(O); Pulse Ox 100% jw7 on R/A; 08/12 18:44 Body Mass Index 31.25 (72.57 kg, 152.40 cm) iw Randall Coma Score: 12:20 Eye Response: spontaneous(4). Verbal Response: oriented(5). Motor Response: obeys ph commands(6). Total: 15. MDM: 08/12 18:48 Patient medically screened. cp 08/13 00:45 Data reviewed: vital signs, nurses notes, lab test result(s), EKG. cp 00:45 Differential diagnosis: seizure, neck fracture, suicide ideation. Test interpretation: cp by ED physician or midlevel provider: ECG. Counseling: I had a detailed discussion with the patient and/or guardian regarding: the historical points, exam findings, and any diagnostic results supporting the discharge/admit diagnosis, lab results, the need to transfer to another facility, [facility] does not immediately have the required specialist. 04:06 ED course: Patient continues to rest comfortably and not require any further kdr intervention. 08/12 18:48 Order name: Acetaminophen; Complete Time: 22:19 cp 08/12 18:48 Order name: Basic Metabolic Panel; Complete Time: 22:19 cp 08/13 00:42 Interpretation: Normal except: K 3.4; CL 108; CA 8.4. cp 08/12 18:48 Order name: CBC with Diff; Complete Time: 22:19 cp 08/13 00:42 Interpretation: Normal except: PLT 144. cp 08/12 18:48 Order name: ETOH Level; Complete Time: 22:19 cp 08/12 18:48 Order name: Hepatic Function; Complete Time: 22:19 cp 08/13 00:43 Interpretation: Normal except: AST 13. cp 08/12 18:48 Order name: PT-INR; Complete Time: 22:19 cp 08/12 18:48 Order name: Ptt, Activated; Complete Time: 22:19 cp 08/12 18:48 Order name: Salicylate; Complete Time: 22:19 cp 08/12 18:48 Order name: Urine Drug Screen; Complete Time: 22:19 cp 08/12 21:04 Order name: Urine Dipstick-Ancillary; Complete Time: 22:19 EDMS 08/12 21:27 Order name: COVID-19 SARS RT PCR (Document "Date of Onset" if Symptomatic); Complete mw2 Time: 00:42 05 00:42 Interpretation: Reviewed. 08/12 23:51 Order name: Urine --Ancillary; Complete Time: 00:42 EDMS 08/12 18:48 Order name: EKG; Complete Time: 18:48 cp 08/12 18:48 Order name: EKG - Nurse/Tech; Complete Time: 21:13 cp 08/12 18:48 Order name: IV Saline Lock; Complete Time: 20:37 cp 08/12 18:48 Order name: Labs collected and sent; Complete Time: 20:52 cp 08/12 18:48 Order name: Suicide Screening ([place]); Complete Time: 20:37 cp 08/12 18:48 Order name: Urine Dipstick-Ancillary (obtain specimen); Complete Time: 21:06 cp 08/12 18:48 Order name: Urine Test (obtain specimen); Complete Time: 21:06 cp 08/13 07:16 Order name: Diet Finger Food; Complete Time: 07:17 ph 08/13 11:51 Order name: Diet Finger Food; Complete Time: 11:52 ph 08/13 15:47 Order name: Diet Finger Food; Complete Time: 15:48 bd 08/13 17:10 Order name: Diet Finger Food; Complete Time: 17:11 ph EC/23 21:12 Rate is 68 beats/min. Rhythm is regular. VA interval is normal. QRS interval is normal. cp QT interval is normal. T waves are Inverted in leads III, aVR. Interpreted by me. Reviewed by me. Administered Medications: 23:47 Drug: Geodon (ziprasidone) 10 mg Route: IM; Site: left deltoid; ld1 08/13 01:53 Follow up: Response: No adverse reaction ld1 01:53 Not Given (Patient Refused): Ativan (LORazepam) 0.5 mg IM once ld1 01:53 Not Given (Patient Refused): Benadryl (diphenhydrAMINE) 12.5 mg IM once ld1 Disposition: 08/12 22:11 Co-signature as Attending Physician, Tony Augustine DO I was immediately available on-site ms3 in the Emergency Department for consultation in the care of the patient. . Disposition Summary: 08/13/21 00:44 Transfer Ordered Transfer Location: [facility] Facility cp Reason: Higher level of care cp Condition: Stable cp Problem: an ongoing problem cp Symptoms: are unchanged cp Accepting Physician: Dr. Carolina Bradley(08/13/21 20:59) tw5 Diagnosis - Suicide attempt(08/13/21 03:26) cp Forms: - Medication Reconciliation Form cp - SBAR form cp Signatures: Dispatcher [employer] EDMS Terry Elliott MD MD kdr Williams, Irene, RN RN iw Page, Corey, PA PA cp Sims, Marcus, DO DO ms3 Enriqueta Pleaez RN RN ld1 Tess Car tw5 Corrections: (The following items were deleted from the chart) 08/13 00:45 00:44 Doctor cp cp 00:45 00:44 Suicide attempt cp cp 03:26 00:45 Doctor cp cp 03:26 00:45 Suicidal ideations cp cp 07:43 03:26 Doctor cp kdr 20:59 07:43 Dr. Carolina Bradley kdr tw5
--- NOTE | 2021-08-13 00:45 | ER ---
Nurse's Notes [facility] Name: Sofie Jensen Age: 20 yrs Sex: Female : 2000 Arrival Date: 08/12/2021 Time: 18:42 Bed 13 Private MD: Diagnosis: Suicide attempt Presentation: 08/12 18:44 Chief complaint: Patient states: witnessed seizure, did not fall, hx of seizures, has iw been out of her meds , last seizure a month ago, pt a\\T\\OX3. Coronavirus screen: At this time, the client does not indicate any symptoms associated with coronavirus-19. Ebola Screen: Patient negative for fever greater than or equal to 101.5 degrees Fahrenheit, and additional compatible Ebola Virus Disease symptoms Patient denies exposure to infectious person. Patient denies travel to an Ebola-affected area in the 21 days before illness onset. No symptoms or risks identified at this time. Initial Sepsis Screen: Does the patient meet any 2 criteria? No. Patient's initial sepsis screen is negative. Does the patient have a suspected source of infection? No. Patient's initial sepsis screen is negative. Risk Assessment: Do you want to hurt yourself or someone else? Patient reports no desire to harm self or others. Onset of symptoms was August 12, 2021. 18:44 Method Of Arrival: EMS: [facility] iw 18:44 Acuity: EN 2 bb Historical: - Allergies: 18:46 [place] [employer]; iw - PMHx: 18:46 Asthma; Seizure; iw - Immunization history:: Client reports having NOT received the Covid vaccine. - Social history:: Smoking status: Reported history of juuling and/or vaping. Screenin:34 Abuse screen: Denies threats or abuse. Denies injuries from another. Nutritional ld1 screening: No deficits noted. Tuberculosis screening: No symptoms or risk factors identified. Fall Risk None identified. Assessment: 20:01 General: pt crying saying "I don't want go back, I want to go home". as6 20:34 General: Appears in no apparent distress. comfortable, Behavior is calm, cooperative, ld1 appropriate for age. Pain: Denies pain. Neuro: Level of Consciousness is awake, alert, obeys commands, Oriented to person, place, time, situation. Cardiovascular: Capillary refill < 3 seconds Patient's skin is warm and dry. Respiratory: Airway is patent Respiratory effort is even, unlabored. GI: Abdomen is flat, non-distended. : No signs and/or symptoms were reported regarding the genitourinary system. EENT: No signs and/or symptoms were reported regarding the EENT system. Derm: No signs and/or symptoms reported regarding the dermatologic system. Musculoskeletal: No signs and/or symptoms reported regarding the musculoskeletal system. 20:36 Reassessment: Sitter at bedside. Safety measures in place. All psych items removed from [facility] room and checked off. 22:04 Reassessment: Patient appears in no apparent distress at this time. Patient and/or ld1 family updated on plan of care and expected duration. Pain level reassessed. Patient is alert, oriented x 3, equal unlabored respirations, skin warm/dry/pink. 23:48 Reassessment: Patient appears in no apparent distress at this time. Patient and/or ld1 family updated on plan of care and expected duration. Pain level reassessed. Pt laying in bed with mother. Denies pain at this time. 08/13 01:00 Reassessment: Reassessment: [facility] at bedside. [facility] 01:29 Reassessment: Patient appears in no apparent distress at this time. No changes from [facility] previously documented assessment. Resting in bed with mother at bedside. RR 18. 03:43 Reassessment: Patient appears in no apparent distress at this time. Patient is alert, lg3 oriented x 3, equal unlabored respirations, skin warm/dry/pink. General: Behavior is calm, pt quietly resting in bed at this time with mother at bedside. . 05:16 General: nurse to nurse report given to Loli with [facility] . lg3 06:38 General: nurse to nurse report given to Ta with [facility] . lg3 07:15 Reassessment: Pt asleep in bed, mother in bed sleeping w/ pt. ph 08:30 Reassessment: Patient appears in no apparent distress at this time. Patient and/or ph family updated on plan of care and expected duration. Pain level reassessed. 10:00 Reassessment: Patient appears in no apparent distress at this time. Patient and/or ph family updated on plan of care and expected duration. Pain level reassessed. 11:00 Reassessment: Patient appears in no apparent distress at this time. Patient and/or ph family updated on plan of care and expected duration. Pain level reassessed. Mother at bedside requesting to speak w/ doctor, states, " I talked to [facility] and they said she can follow up outpatient.". 12:14 Reassessment: Spoke with [facility] who states she will notify screener for ss reevaluation and ordered by Dr. Bill. 14:06 Reassessment: Patient appears in no apparent distress at this time. Patient and/or ph family updated on plan of care and expected duration. Pain level reassessed. Pt attempting to leave room, states, " I'm going to the vending machine, I'm not eating that shit that they brought me." Pt not able to be redirected, went to lobby to vending machine. Informed pt that she could not leave facility because of WINSOME issued by mental health deputy. Mother at bedside states, " That's fine, I'll call the police." Tana arriaga called overhead. 14:13 Reassessment: Mother yelling at tech at bedside, states, " We've talked to [facility] and I have a safety plan in place for her. They said she can do outpatient. I lost my 25 year old months ago and I just lost my 1 month old and I need my daughter home w/ me." Kellie arriaga called overhead, security, charge nurse, and houseperson at bedside. 14:14 Reassessment: Mother on speaker phone w/ [facility]. ph 14:15 Reassessment: [place] [employer] at bedside. ph 15:30 Reassessment: Patient appears in no apparent distress at this time. Patient and/or ph family updated on plan of care and expected duration. Pain level reassessed. Pt sitting quietly in bed, mother remains at bedside. 17:00 Reassessment: Patient appears in no apparent distress at this time. Patient and/or ph family updated on plan of care and expected duration. Pain level reassessed. Patient is alert, oriented x 3, equal unlabored respirations, skin warm/dry/pink. Pt sitting in bed eating pizza which was delivered to ED, mother asleep at bedside. 18:48 Reassessment: Patient appears in no apparent distress at this time. Patient and/or ph family updated on plan of care and expected duration. Pain level reassessed. Awaiting [facility] health deputy for transfer to [facility]. 19:17 General: pt quietly watching tv with mother at bedside. lg3 19:17 General: Appears in no apparent distress. comfortable, Behavior is calm, cooperative, lg3 quiet. Pain: Denies pain. Neuro: No deficits noted. Dean Agitation-Sedation Scale (RASS): 0 - Alert and Calm Level of Consciousness is awake, alert, obeys commands, Oriented to person, place, time, situation. Cardiovascular: No deficits noted. Denies chest pain, shortness of breath, Capillary refill < 3 seconds Clubbing of nail beds is absent JVD is absent Patient's skin is warm and dry. Respiratory: No deficits noted. Airway is patent Trachea midline Respiratory effort is even, unlabored, Respiratory pattern is regular, symmetrical. GI: No deficits noted. No signs and/or symptoms were reported involving the gastrointestinal system. Abdomen is flat, non-distended. : No deficits noted. No signs and/or symptoms were reported regarding the genitourinary system. EENT: No deficits noted. No signs and/or symptoms were reported regarding the EENT system. Derm: No deficits noted. Bruising that is dark purple, on neck. Musculoskeletal: No deficits noted. No signs and/or symptoms reported regarding the musculoskeletal system. Circulation, motion, and sensation intact. Capillary refill < 3 seconds, Range of motion: intact in all extremities. 20:25 General: [facility] Deputies at bedside talking to patient and lg3 mother . Psych: 08:00 Lillian Suicide Severity Screening: In the past month, have you wished you were ph or wished you could go to sleep and not wake up? Patient responds "No." "In the past month, have you actually had any thoughts of killing yourself?" Patient responds "no." "In your lifetime, have you ever done anything, started to do anything, or prepared to do anything to end your life?" Patient responds "yes." Patient reports suicidal intent occurred greater than 3 months prior. shift superintendent nurse stated during shift change report that the pt attempted to hang herself w/ a dog leash yesterday. Subjective: Delusions are denied, Hallucinations are denied. Objective: Patient is cooperative, Speech is normal, Affect is appropriate. Interventions: Patient placed in hospital gown. Safety Checks: Personal items have been removed. Door is open. Visitors are present. mother sitter present. Pt denies substance abuse. Commitment: Patient will be an involuntary commitment. Vital Signs: 08/12 18:44 BP 113 / 69; Pulse 70; Resp 16; Temp 98.0; Pulse Ox 100% on R/A; Weight 72.57 kg; iw Height 5 ft. 0 in. (152.40 cm); 21:17 BP 100 / 66; Pulse 72; Resp 16 S; Temp 97.5; Pulse Ox 100% on R/A; wm 23:46 BP 100 / 58; Pulse 68; Resp 18; Temp 97.6(O); Pulse Ox 100% on R/A; ld1 08/13 01:00 BP 102 / 59; Pulse 66; Resp 17; Pulse Ox 100% on R/A; Pain 0/10; ld1 06:48 BP 99 / 55; Pulse 58; Resp 16; Temp 97.5; Pulse Ox 98% on R/A; wm 07:30 BP 100 / 67; Pulse 52; Resp 16; Temp 98; Pulse Ox 100% on R/A; kj1 17:51 BP 108 / 76 LA Sitting (auto/reg); Pulse 71 LA; Resp 16 S; Temp 98.3(O); Pulse Ox 100% jw7 on R/A; 08/12 18:44 Body Mass Index 31.25 (72.57 kg, 152.40 cm) iw Savannah Coma Score: 12:20 Eye Response: spontaneous(4). Verbal Response: oriented(5). Motor Response: obeys ph commands(6). Total: 15. ED Course: 08/12 18:42 Patient arrived in ED. iw 18:45 Triage completed. iw 18:46 Arm band placed on. iw 18:47 Evan Garcia PA is PHCP. cp 18:47 Tony Augustine DO is Attending Physician. cp 20:01 Martin Loaiza, MIESHA is Primary Nurse. as6 20:34 Patient has correct armband on for positive identification. Placed in gown. Bed in low ld1 position. Pulse ox on. NIBP on. Sitter at bedside. Patient is placed in psych hold. 20:34 No provider procedures requiring assistance completed. Maintain EMS IV. Dressing ld1 intact. Good blood return noted. Site clean \\T\\ dry. Gauge \\T\\ site: 20G RAC. 21:06 Urine collected: clean catch specimen, cloudy. wm 21:06 EKG done, by ED staff. wm 21:07 Lights dimmed. Warm blanket given. 22:55 contacted [facility] spoke to Delia to have a screener evaluate the patient. mw2 23:35 COVID-19 SARS RT PCR (Document "Date of Onset" if Symptomatic) Sent. 08/13 02:24 faxed all patient clinicals to all available psych facilities. mw2 02:54 Naomi from [facility] called to decline the patient due to capacity. mw2 03:16 Attending Physician role handed off by Tony Augustine DO cp 03:16 Terry Elliott MD is Attending Physician. cp 04:22 faxed patient exclusionary form to [facility]. mw2 05:10 Nurse to Nurse from [facility]. mw2 06:28 Nurse to Nurse from [facility]. mw2 06:43 faxed over covid result and WINSOME to [facility]. mw2 06:[address] Elliott with the Psychiatrist from [facility]. mw2 07:57 Primary Nurse role handed off by Martin Loaiza, MIESHA 08:42 Mariam García, RN is Primary Nurse. ph 12:19 Seizure precautions initiated. ph 14:13 pt accepted in transfer to [facility] by dr fairbanks admin approval given by ruby Aceves. 14:47 contacted [facility] dispatch to have mental health deputy transport pt to [facility]. 16:29 contacted [facility] dispatch, requested to have mental health deputy call er with ETA. bd 17:03 was contacted by [facility] mental health deputy, he is coming from [place] and bd will be about 1 1/2 hr. 20:26 IV discontinued, intact, bleeding controlled, No redness/swelling at site. Pressure lg3 dressing applied. Administered Medications: 08/12 23:47 Drug: Geodon (ziprasidone) 10 mg Route: IM; Site: left deltoid; ld1 08/13 01:53 Follow up: Response: No adverse reaction ld1 01:53 Not Given (Patient Refused): Ativan (LORazepam) 0.5 mg IM once ld1 01:53 Not Given (Patient Refused): Benadryl (diphenhydrAMINE) 12.5 mg IM once ld1 Medication: 08/12 20:34 VIS not applicable for this client. ld1 Outcome: 08/13 00:44 ER care complete, transfer ordered by cp 20:59 Patient left the ED. tw5 21:03 Transferred By [facility] Deputies. lg3 21:03 Condition: stable 21:03 Instructed on the need for transfer. Signatures: Camila Martínez Brenda, RN RN bb Donna Francisco RN RN iw Joanne Phillips RN RN ss Hall, Patricia, RN RN ph Evan Garcia PA PA cp [place], Bar mw2 Marcos, Alesia kj1 Beata Rivero RN RN lg3 Enriqueta Pelaez RN RN ld1 Jada Zamarripa Tiffany tw5 Martin Loaiza RN RN as6 Ana Jauregui jw7 Corrections: (The following items were deleted from the chart) 08/12 21:58 18:44 Acuity: EN 3 iw bb 08/13 17:53 11:00 BP 108 / 76; Pulse 71bpm; Resp 16bpm; Pulse Ox 100% RA; Temp 98F; jw7 jw7 18:51 18:48 Reassessment: Patient appears in no apparent distress at this time. Patient ph and/or family updated on plan of care and expected duration. Pain level reassessed. Awaiting mental health deputy for transfer ph 20:22 20:20 General: Appears in no apparent distress. comfortable, Behavior is calm, lg3 cooperative, appropriate for age, lg3 20:25 20:20 Pain: Denies pain. lg3 lg3 20:25 20:20 Neuro: No deficits noted. Dean Agitation-Sedation Scale (RASS): 0 - Alert and lg3 Calm Level of Consciousness is awake, alert, obeys commands, Oriented to person, place, time, situation, lg3 20:25 20:20 Cardiovascular: No deficits noted. Denies chest pain, shortness of breath, lg3 lg3 20:25 20:20 Respiratory: No deficits noted. Airway is patent Trachea midline Respiratory lg3 effort is even, unlabored, Respiratory pattern is regular, symmetrical, lg3 20:25 20:20 GI: No deficits noted. No signs and/or symptoms were reported involving the lg3 gastrointestinal system. Abdomen is flat, non-distended, lg3 20:25 20:20 : No deficits noted. No signs and/or symptoms were reported regarding the lg3 genitourinary system. lg3 20:25 20:20 EENT: No deficits noted. No signs and/or symptoms were reported regarding the lg3 EENT system. lg3 20:25 20:20 Derm: No deficits noted. Bruising that is dark purple, on neck lg3 lg3 20:25 20:20 Musculoskeletal: No deficits noted. No signs and/or symptoms reported regarding lg3 the musculoskeletal system. Circulation, motion, and sensation intact. Range of motion: intact in all extremities, lg3 20:25 19:17 General: Appears in no apparent distress. comfortable, Behavior is calm, lg3 cooperative, appropriate for age, lg3
--- NOTE | 2021-08-13 09:09 | EKG ---
Test Date: 2021-08-12 Test Time: 21:06:42 Beam Dyer Recessed Vat: DAYSI MEASUREMENT RESULTS: Intervals: Rate: 68 VA: 176 QRSD: 84 QT: 388 QTc: 412 [place]: P: 49 VA: 176 QRS: 73 T: 23 INTERPRETIVE STATEMENTS: Normal sinus rhythm with sinus arrhythmia Normal ECG Compared to ECG 06/26/2021 10:15:13 No significant changes Electronically Signed On 08-13-21 09:08:01 CDT by Trent Capellan
[2021-08-13 21:28] VITALS: TEMP 97.7
[2021-08-13 21:30] VITALS: BP 120/89; O2SAT 99
== END 2021-08-13 20:59 ==
LOC: ER 18:40
DX: T14.91XA Suicide attempt, initial encounter (principal); X83.8XXA Intentional self-harm by other specified means, initial encounter; Z20.822 Contact with and (suspected) exposure to COVID-19; Z91.018 Allergy to other foods
CPT/HCPCS: 93005; 85025; 80048; 36415; 80320; 80329 ×2; 81025; 85610; 80076; 85730; 81003; 80307; 96372; 99285; U0003; J1200; J3486

== ENCOUNTER 2022-12-08 18:01 | Emergency (ER) | payer OTHER ==
--- OUTSIDE RECORDS SUMMARY | 2022-12-08 18:29 | XMS REPORT | Continuity of Care Document ---
:[address] [facility] t Address [address] [place] [id number] Care Team Providers Name Role Phone Unavailable Unavailable Unavailable Problems This patient has no known problems. Allergies, Adverse Reactions, Alerts This patient has no known allergies or adverse reactions. Medications This patient has no known medications. Procedures This patient has no known procedures. Encounters Start End Encounter Admission Attending Care Care Encounter Source Date/Time Date/Time Type Type Clinicians Facility Department ID 2021-06-26 Outpatient [facility] [id number] [place] 19:37:59 [id number] [facility] 2019-05-17 2019-05-17 Outpatient [facility] [id number] 13:16:00 13:16:00 01 karsten [place] 2019-05-17 2019-05-17 Outpatient [facility] [id number] 13:16:00 13:16:00 01 [place] 2018-06-04 2018-06-04 Outpatient [facility] [id number] 10:32:00 10:32:00 00 karsten [place] 2018-06-04 2018-06-04 Outpatient [facility] [id number] 10:32:00 10:32:00 00 [place]sten [place] Results This patient has no known results.
[2022-12-08 18:39] LABS: Specific Gravity < 1.005 (1.005-1.030); Urine Bacteria None Seen /HPF (<20); Urine Bilirubin NEGATIVE (Negative); Urine Blood Negative (Negative); Urine Clarity Turbid (Clear); Urine Color Colorless (Yellow); Urine Glucose NEGATIVE (Negative); Urine Protein NEGATIVE (Negative); Urine RBC <5 /HPF (None Seen); Urine Urobilinogen Normal (Normal); Urine pH 5.5 (5.0-7.0)
[2022-12-08 18:48] LABS: Barbiturates NEGATIVE (NEGATIVE); Benzodiazepines NEGATIVE (NEGATIVE); Cocaine NEGATIVE (NEGATIVE); METHAMPHETAM NEGATIVE (NEGATIVE); Methadone NEGATIVE (NEGATIVE); Opiates NEGATIVE (NEGATIVE); Phencyclidine NEGATIVE (NEGATIVE); THC Cannibis POSITIVE (NEGATIVE)
[2022-12-08] MEDS ORDERED: LORazepam 2 MG/ML VIAL ONE ×2 (18:53→20:04)
[2022-12-08] MEDS ORDERED: WATER FOR INJ,STERILE 10 ML ONE (18:58)
[2022-12-08] MEDS ORDERED: ZIPRASIDONE MESYLA 20 MG/VIAL IM ONE (18:58)
[2022-12-08] MEDS ORDERED: LEVETIRACETAM 500 MG/5 ML VIAL IV ONE (19:20)
[2022-12-08 19:21] LABS: Hematocrit 45.2 % (36.0-45.0); Lymphocytes % 27.9 % (15.3-44.8); MCV 88.8 fL (80-100); MPV 10.2 fL (7.6-11.3); Platelets 192 thou/uL (152-406); RBC Red Blood Cell Count 5.09 M/uL (3.86-4.86)
[2022-12-08] MEDS ORDERED: NA CHLORIDE 0.9% 50 ML ONE (19:21)
[2022-12-08 19:24] LABS: Protime INR 0.99
[2022-12-08 19:38] LABS: ALT/SGPT 18 U/L (13-56); AST/SGOT 14 U/L (15-37); Albumin 4.6 g/dL (3.4-5.0); Alkaline Phosphatase 71 U/L (45-117); BUN Blood Urea Nitrogen 7 mg/dL (7-18); Bicarbonate 25 mEq/L (21-32); Bilirubin Total 0.2 mg/dL (0.2-1.0); Glomerular Filtration Rate 109 ml/min (=/>90); Glucose Level 89 mg/dL (74-106); Potassium 3.6 mEq/L (3.5-5.1); Protein, Total 8.5 g/dL (6.4-8.2); Sodium Level 145 mEq/L (136-145)
[2022-12-08 19:42] LABS: Bilirubin Direct < 0.1 mg/dL (0-0.2); Bilirubin Indirect, Calculated ND mg/dL (0.2-0.8); HCG, Quantitative < 1 mIU/mL (1-3)
[2022-12-08] MEDS ORDERED: CEFTRIAXONE 1000 MG/VIAL ONE (20:22)
[2022-12-08] MEDS ORDERED: NACHLORIDE 0.45% 1,000 ML IV ONE (20:23)
--- NOTE | 2022-12-08 20:45 | RAD REPORT ---
EXAM DESCRIPTION: CT - Head Brain Wo Cont - 12/08/2022 8:09 pm CLINICAL HISTORY: SEIZURE;Mental status change COMPARISON: Head Brain Wo Cont dated 06/25/2021; Head Brain Wo Cont dated 06/02/2021 TECHNIQUE: Noncontrast head CT images were obtained without IV contrast. Multiplanar reformats were generated and reviewed. All CT scans are performed using dose optimization technique as appropriate and may include automated exposure control or mA/KV adjustment according to patient size. FINDINGS: No intracranial hemorrhage, mass, or edema. Midline structures are unremarkable. Normal ventricular caliber for age. Kemp-white matter differentiation is preserved, without evidence of acute infarct. No abnormal extra- axial fluid collections. Mastoid air cells and visualized portions of the paranasal sinuses are clear. No acute bony findings. IMPRESSION: No evidence of an acute intracranial process.
--- NOTE | 2022-12-08 21:10 | ER ---
Nurse's Notes [facility] Name: Sofie Jensen Age: 22 yrs Sex: Female : 2000 Arrival Date: 12/08/2022 Time: 18:01 Bed 3 Private MD: Diagnosis: Epileptic seizures related to external causes, not intractable, without status epilepticus;Alcohol use, unspecified;Altered mental status, unspecified-RESOLVED Presentation: 12/08 18:06 Chief complaint: EMS states: they were called for patient having a seizure, she was ko1 post ictal when they arrived, she had another seizure with EMS and was given ativan 4mg IV. She began to come around upon arrival to the hospital. Coronavirus screen: At this time, the client does not indicate any symptoms associated with coronavirus-19. Ebola Screen: No symptoms or risks identified at this time. Initial Sepsis Screen: Does the patient meet any 2 criteria? No. Patient's initial sepsis screen is negative. Does the patient have a suspected source of infection? No. Patient's initial sepsis screen is negative. Risk Assessment: Do you want to hurt yourself or someone else? Patient reports no desire to harm self or others. Onset of symptoms was December 08, 2022. Care prior to arrival: Medication(s) given: ativan 4 mg IV IV initiated. 20 GA, in the left antecubital area. 18:06 Method Of Arrival: EMS: [facility] ko1 18:06 Acuity: EN 2 ko1 Triage Assessment: 18:11 General: Appears distressed, Behavior is anxious, uncooperative. Pain: Unable to use ko1 pain scale. Patient is disoriented. Neuro: Seizure activity reported prior to arrival. Historical: - Allergies: 18:11 Kurten And Derivatives; ko1 - PMHx: 18:11 Asthma; Seizure; ko1 - Immunization history:: Adult Immunizations unknown. - Social history:: Smoking status: unknown. - Family history:: not pertinent. Screenin:14 [facility] ED Fall Risk Assessment (Adult) History of falling in the last 3 months, ko1 including since admission No falls in past 3 months (0 pts) Confusion or Disorientation Yes (5 pts) Intoxicated or Sedated Yes (3 pts) Impaired Gait No (0 pts) Mobility Assist Device Used No (0 pt) Altered Elimination No (0 pt) Score/Fall Risk Level 3 or more points = High Risk Oriented to surroundings, Maintained a safe environment, Educated pt \T\ family on fall prevention, incl call for assistance when getting out of bed, Assessed \T\ reinforced patient's understanding of fall precautions, Provided non-skid footwear, Hourly rounding (assess needs \T\ fall precautionary measures) done, Used ambulatory aids as needed (educated on \T\ assisted with), Used gait belt as appropriate Implemented a Fall Risk Plan of Care, Apply high fall risk patient identification: yellow non skid footwear/ fall signage, Remained with patient while ambulating, Utilized family, sitter, or virtual database modeler as indicated. Abuse screen: Denies threats or abuse. Denies injuries from another. Nutritional screening: No deficits noted. Tuberculosis screening: No symptoms or risk factors identified. Assessment: 18:14 Cardiovascular: No deficits noted. Respiratory: No deficits noted. GI: No deficits ko1 noted. : No deficits noted. EENT: No deficits noted. Derm: No deficits noted. Musculoskeletal: No deficits noted. 18:30 Reassessment: Patient became combative, throwing herself into the siderails, hitting ko1 staff, kicking staff. Restraints applied and extra staff called for assistance, patient continued trying to bite staff and cussing/yelling/screaming at staff and family members. Side rails remained padded for patient safety. Dr Quezada at bedside, orders received for ativan and geodon. Ativan was given with no results, Geodon was given, patient became slightly calmer, family at bedside. Vital signs were not obtained during this due to patient ripped off pulse ox with teeth, blood pressure cuff would not obtain blood pressure due to patient thrashing around. 19:15 General: Behavior is combative, fussy, inappropriate for age, restless, uncooperative. lg3 Neuro: Dean Agitation-Sedation Scale (RASS): +4 Combative Level of Consciousness is awake, confused, stuporous. Cardiovascular: No deficits noted. Capillary refill < 3 seconds Clubbing of nail beds is absent JVD is absent Patient's skin is warm and dry. Respiratory: No deficits noted. Airway is patent Respiratory effort is even, unlabored, Respiratory pattern is regular, symmetrical. GI: No deficits noted. Abdomen is flat, non-distended. : No deficits noted. EENT: No deficits noted. Derm: No deficits noted. Skin is intact, is healthy with good turgor, Skin is dry, Skin is normal, Skin temperature is warm. Musculoskeletal: No deficits noted. Circulation, motion, and sensation intact. Range of motion: intact in all extremities. 20:16 General: Appears in no apparent distress. comfortable, Behavior is calm. Neuro: lg3 Dean Agitation-Sedation Scale (RASS): -3 Moderate Sedation. Respiratory: No deficits noted. Airway is patent Respiratory effort is even, unlabored, Respiratory pattern is regular, symmetrical. 21:52 Reassessment: Patient appears in no apparent distress at this time. No changes from lg3 previously documented assessment. Neuro: Dean Agitation-Sedation Scale (RASS): -3 Moderate Sedation. Respiratory: No deficits noted. Airway is patent Respiratory effort is even, unlabored, Respiratory pattern is regular, symmetrical. 22:23 General: Appears in no apparent distress. comfortable, Behavior is calm, cooperative, lg3 drowsy. Pain: Denies pain. Neuro: No deficits noted. Dean Agitation-Sedation Scale (RASS): -1 Drowsy Level of Consciousness is awake, alert, obeys commands, Oriented to person, place. Cardiovascular: No deficits noted. Respiratory: No deficits noted. Airway is patent Respiratory effort is even, unlabored, Respiratory pattern is regular, symmetrical. Vital Signs: 18:06 BP 126 / 95; Pulse 111; Resp 20; Temp 98; Pulse Ox 99% ; ko1 18:56 Weight 53.07 kg; jl7 18:57 Pulse 146; Resp 18; Pulse Ox 100% on R/A; jl7 19:15 BP 138 / 93; Pulse 94; Pulse Ox 99% on R/A; lg3 20:16 BP 111 / 73; Pulse 106; Resp 17 S; Pulse Ox 100% on R/A; lg3 21:53 BP 107 / 83; Pulse 82; Resp 16 S; Pulse Ox 100% on R/A; lg3 Savannah Coma Score: 18:11 Eye Response: spontaneous(4). Motor Response: obeys commands(6). Verbal Response: ko1 inappropriate words(3). Total: 13. ED Course: 18:03 Patient arrived in ED. ld1 18:03 Surjit Quezada MD is Attending Physician. cp3 18:06 Renée Marshall, RN is Primary Nurse. ko1 18:11 Triage completed. ko1 18:11 Arm band placed on right wrist. Patient placed in an exam room, on a stretcher, on ko1 claims clerk, on pulse oximetry, Patient notified of wait time. 18:14 Patient has correct armband on for positive identification. Bed in low position. Call ko1 light in reach. Side rails up X2. Seizure precautions initiated. Provided Education on: na. 18:14 Maintain EMS IV. Dressing intact. Good blood return noted. Site clean \T\ dry. Gauge \T\ ko 1 site: 20 g L AC. 18:21 contacted [facility] to have a officer come to er as requested by patients mother. bd 18:30 Client placed on continuous cardiac and pulse oximetry monitoring. NIBP monitoring ko1 applied. medical imaging technician on. Door closed. Noise minimized. Lights dimmed. 18:47 UDS Sent. jl7 18:54 Radiology exam delayed due to patient not able to come to CT at this time. nj 18:55 Blood Culture Adult (2) Sent. jl7 18:55 Lactate w/ 2H reflex if indic. Sent. jl7 18:55 AMMONIA Sent. jl7 18:55 HCG-Quantitative Sent. jl7 18:55 Acetaminophen Sent. jl7 18:55 Basic Metabolic Panel Sent. jl7 18:55 CBC with Diff Sent. jl7 18:55 ETOH Level Sent. jl7 18:55 Hepatic Function Sent. jl7 18:55 PT-INR Sent. jl7 18:55 Salicylate Sent. jl7 19:15 Report received from MIESHA Robison. lg3 19:15 Patient maintains SpO2 saturation greater than 95% on room air. lg3 20:10 CT Head Brain wo Cont In Process Unspecified. EDMS 21:08 Ricky Ugalde MD is Referral Physician. cp3 22:24 No provider procedures requiring assistance completed. IV discontinued, intact, lg3 bleeding controlled, No redness/swelling at site. Pressure dressing applied. Administered Medications: 18:52 Drug: NS 0.9% IV 1000 ml IV at 1 bolus Per protocol; 1000 mL bolus Route: IV; Rate: 1 ko1 bolus; Site: left antecubital; 20:09 Follow up: IV Status: Completed infusion; IV Intake: 1000ml lg3 18:57 Drug: Ativan IVP 1 mg IVP once Route: IVP; Site: right antecubital; jl7 21:54 Follow up: Response: No adverse reaction; Marked relief of symptoms; RASS: Moderate lg3 sedation (-3) 18:57 Drug: Geodon IM 10 mg IM once; Verbal order per Dr. Quezada Route: IM; Site: right jl7 deltoid; 21:53 Follow up: Response: No adverse reaction; Marked relief of symptoms; RASS: Moderate lg3 sedation (-3) 19:17 Drug: Keppra IV 20 mg/kg IV at calculated rate once; not to exceed 2,500 milligrams lg3 administer over 15 minutes Route: IV; Rate: calculated rate; Site: left antecubital; 21:54 Follow up: Response: No adverse reaction; IV Status: Completed infusion; IV Intake: [id number] 20:11 Drug: NS IV 0.45 % 1000 ml IV at 125 ml/hr continuous Route: IV; Rate: 125 ml/hr; Site: lg3 left antecubital; 20:11 Drug: Rocephin IV 1 grams IV at bolus once; Given slow IV push per pharmacy lg3 instructions Route: IV; Rate: bolus; Site: left antecubital; 21:53 Follow up: Response: No adverse reaction; IV Status: Completed infusion; IV Intake: [id number] Medication: 22:24 VIS not applicable for this client. lg3 Intake: 20:09 IV: 1000ml; Total: 1000ml. lg3 21:53 IV: 10ml; Total: 1010ml. lg3 21:54 IV: 50ml; Total: 1060ml. lg3 Outcome: 21:10 Discharge ordered by . cp3 22:24 Discharged to home via wheelchair, with family, lg3 22:24 Condition: stable 22:24 Discharge instructions given to patient, family, Instructed on discharge instructions, follow up and referral plans. medication usage, Demonstrated understanding of instructions, follow-up care, medications, Prescriptions given X 1, 22:25 Patient left the ED. lg3 Signatures: Dispatcher [employer] EDMS Camila Martínez Cwanza, MD MD cp3 Viktor Hylton Jahala, RN RN jl7 Beata Rivero RN RN lg3 Enriqueta Augustine RN RN ld1 Renée Marshall, RN RN ko1
--- NOTE | 2022-12-08 21:10 | EDPHYS ---
Physician Documentation [facility] Name: Sofie Jensen Age: 22 yrs Sex: Female : 2000 Arrival Date: 12/08/2022 Time: 18:01 Bed 3 Private MD: ED Physician Surjit Quezada HPI: 12/08 19:40 This 22 yrs old Female presents to ER via EMS with complaints of Seizure. cp3 19:40 Patient is a 22-year-old female with a history of asthma and seizure disorder who cp3 presents to the ED for altered mental status after seizure this evening. Per EMS witnessed at home endorsed that patient had had some alcohol today is her birthday was yesterday. Patient's mom at bedside endorses that patient does have a history of seizures and was previously taking Keppra but has not taken medication in some time secondary to being nonsymptomatic for a period of years. Patient agitated and belligerent which may be due to postictal status or unknown ingestion. Historical: - Allergies: 18:11 Lipscomb And Derivatives; ko1 - PMHx: 18:11 Asthma; Seizure; ko1 - Immunization history:: Adult Immunizations unknown. - Social history:: Smoking status: unknown. - Family history:: not pertinent. ROS: 19:40 Constitutional: Negative for fever, chills, and weight loss, Eyes: Negative for injury, cp3 pain, redness, and discharge, ENT: Negative for injury, pain, and discharge, Neck: Negative for injury, pain, and swelling, Cardiovascular: Negative for chest pain, palpitations, and edema, Respiratory: Negative for shortness of breath, cough, wheezing, and pleuritic chest pain, Abdomen/GI: Negative for abdominal pain, nausea, vomiting, diarrhea, and constipation, Back: Negative for injury and pain, : Negative for injury, bleeding, discharge, and swelling, MS/Extremity: Negative for injury and deformity, Skin: Negative for injury, rash, and discoloration, Psych: Negative for depression, anxiety, suicide ideation, homicidal ideation, and hallucinations, Allergy/Immunology: Negative for hives, rash, and allergies, Endocrine: Negative for neck swelling, polydipsia, polyuria, polyphagia, and marked weight changes, Hematologic/Lymphatic: Negative for swollen nodes, abnormal bleeding, and unusual bruising, 19:40 Neuro: Positive for altered mental status, seizure activity, 19:40 Psych: Positive for Acute agitation, Exam: 19:40 Head/Face: Normocephalic, atraumatic. ENT: Nares patent. No nasal discharge, no cp3 septal abnormalities noted. Tympanic membranes are normal and external auditory canals are clear. Oropharynx with no redness, swelling, or masses, exudates, or evidence of obstruction, uvula midline. Mucous membranes moist. Neck: Trachea midline, no thyromegaly or masses palpated, and no cervical lymphadenopathy. Supple, full range of motion without nuchal rigidity, or vertebral point tenderness. No Meningismus. Chest/axilla: Normal chest wall appearance and motion. Nontender with no deformity. No lesions are appreciated. Cardiovascular: Regular rate and rhythm with a normal S1 and S2. No gallops, murmurs, or rubs. Normal PMI, no JVD. No pulse deficits. Respiratory: Lungs have equal breath sounds bilaterally, clear to auscultation and percussion. No rales, rhonchi or wheezes noted. No increased work of breathing, no retractions or nasal flaring. Abdomen/GI: Soft, non-tender, with normal bowel sounds. No distension or tympany. No guarding or rebound. No evidence of tenderness throughout. Back: No spinal tenderness. No costovertebral tenderness. Full range of motion. Skin: Warm, dry with normal turgor. Normal color with no rashes, no lesions, and no evidence of cellulitis. MS/ Extremity: Pulses equal, no cyanosis. Neurovascular intact. Full, normal range of motion. 19:40 Neuro: Mentation: confused, Patient agitated and belligerent, Vital Signs: 18:06 BP 126 / 95; Pulse 111; Resp 20; Temp 98; Pulse Ox 99% ; ko1 18:56 Weight 53.07 kg; jl7 18:57 Pulse 146; Resp 18; Pulse Ox 100% on R/A; jl7 19:15 BP 138 / 93; Pulse 94; Pulse Ox 99% on R/A; lg3 20:16 BP 111 / 73; Pulse 106; Resp 17 S; Pulse Ox 100% on R/A; lg3 21:53 BP 107 / 83; Pulse 82; Resp 16 S; Pulse Ox 100% on R/A; lg3 Savannah Coma Score: 18:11 Eye Response: spontaneous(4). Motor Response: obeys commands(6). Verbal Response: ko1 inappropriate words(3). Total: 13. Procedures: 19:40 equipment monitor phototypesetting interpreted by me-heart rate improved from 175, sinus tachycardia to 94 cp3 normal sinus rhythm. MDM: 18:04 Patient medically screened. cp3 19:40 Differential diagnosis: cerebral vascular accident, drug overdose, cardiac arrhythmia, cp3 seizure, TIA. Data reviewed: vital signs, nurses notes, old medical records. Consideration of Admission/Observation Escalation of care including admission/observation considered. Response to treatment: the patient's symptoms have markedly improved after treatment, Patient placed in nonviolent restraints secondary to agitation and confusion. Patient medicated with Ativan and Geodon with improvement in agitation. 19:51 ED course: ekg interpreted by me at 1950- normal sinus rhythm, rate 85, no evidence of cp3 acute mi. 20:51 ED course: PATIENT CALM AND OUT OF SOFT RESTRAINTS. . 3 12/08 18:09 Order name: Acetaminophen; Complete Time: 19:44 cp3 12/08 19:44 Interpretation: ACETA < 2.5. cp3 12/08 18:09 Order name: Basic Metabolic Panel; Complete Time: 19:44 cp3 12/08 19:44 Interpretation: NA 145; K 3.6; CL 113; CO2 25; ANION GAP 10.6; GLUC 89; BUN 7; CRE cp3 0.79; GFR 109; CA 8.3. 12/08 18:09 Order name: CBC with Diff; Complete Time: 19:44 cp3 12/08 18:09 Order name: ETOH Level; Complete Time: 19:44 cp3 12/08 19:44 Interpretation: ETOH 275. cp3 12/08 18:09 Order name: Hepatic Function; Complete Time: 19:44 cp3 18 19:44 Interpretation: AST 14; ALT 18; ALK 71; BILIT 0.2; BILID < 0.1; IBILI, CALC Not Done; cp3 TP 8.5; ALB 4.6; GLOB 3.9; A/G 1.2. 12/08 18:09 Order name: PT-INR; Complete Time: 19:44 cp3 12/08 19:45 Interpretation: PT 10.9; INR <p>0.99</p>. cp3 12/08 18:09 Order name: Ptt, Activated; Complete Time: 19:44 [facility] 12/08 18:09 Order name: Salicylate; Complete Time: 20:04 [facility] 12/08 20:05 Interpretation: Within normal limits: CHANDRIKA < 2.2. [facility] 12/08 18:09 Order name: Urinalysis w/ reflexes; Complete Time: 19:16 [facility] 12/08 19:45 Interpretation: Within normal limits: Unremarkable urine. [facility] 12/08 18:09 Order name: Urine Drug Screen; Complete Time: 19:16 [facility] 12/08 19:17 Interpretation: Abnormal: PCP NEGATIVE; BZO NEGATIVE; PAUL NEGATIVE; METHAMPHETAMINE cp3 NEGATIVE; THC POSITIVE; OPI NEGATIVE; FABIO NEGATIVE; METH NEGATIVE. 12/08 18:09 Order name: UDS [facility] 12/08 18:09 Order name: HCG-Quantitative; Complete Time: 19:44 [facility] 12/08 19:44 Interpretation: HCGQ < 1. [facility] 12/08 18:13 Order name: AMMONIA; Complete Time: 19:16 [facility] 12/08 18:13 Order name: Blood Culture Adult (2) [facility] 12/08 18:13 Order name: Lactate w/ 2H reflex if indic.; Complete Time: 19:44 [facility] 12/08 19:44 Interpretation: LAC 3.1. [facility] 12/08 18:09 Order name: CT Head Brain wo Cont; Complete Time: 20:49 [facility] 12/08 18:09 Order name: EKG; Complete Time: 18:09 [facility] 12/08 18:09 Order name: Labs collected and sent; Complete Time: 18:55 [facility] 12/08 18:09 Order name: Suicide Screening ([place]); Complete Time: 21:20 [facility] 12/08 18:09 Order name: Seizure Precautions; Complete Time: 18:52 [facility] 12/08 18:12 Order name: Restraint:Non-Violent; Complete Time: 18:52 [facility] 12/08 18:13 Order name: O2 Per Protocol; Complete Time: 18:47 [facility] 12/08 18:13 Order name: O2 Sat Monitoring; Complete Time: 18:47 [facility] 12/08 18:13 Order name: Vital Signs; Complete Time: 18:47 3 Administered Medications: 18:52 Drug: NS 0.9% IV 1000 ml IV at 1 bolus Per protocol; 1000 mL bolus Route: IV; Rate: 1 ko1 bolus; Site: left antecubital; 20:09 Follow up: IV Status: Completed infusion; IV Intake: 1000ml lg3 18:57 Drug: Ativan IVP 1 mg IVP once Route: IVP; Site: right antecubital; jl7 21:54 Follow up: Response: No adverse reaction; Marked relief of symptoms; RASS: Moderate lg3 sedation (-3) 18:57 Drug: Geodon IM 10 mg IM once; Verbal order per Dr. Quezada Route: IM; Site: right jl7 deltoid; 21:53 Follow up: Response: No adverse reaction; Marked relief of symptoms; RASS: Moderate lg3 sedation (-3) 19:17 Drug: Keppra IV 20 mg/kg IV at calculated rate once; not to exceed 2,500 milligrams lg3 administer over 15 minutes Route: IV; Rate: calculated rate; Site: left antecubital; 21:54 Follow up: Response: No adverse reaction; IV Status: Completed infusion; IV Intake: [id number] 20:11 Drug: NS IV 0.45 % 1000 ml IV at 125 ml/hr continuous Route: IV; Rate: 125 ml/hr; Site: lg3 left antecubital; 20:11 Drug: Rocephin IV 1 grams IV at bolus once; Given slow IV push per pharmacy lg3 instructions Route: IV; Rate: bolus; Site: left antecubital; 21:53 Follow up: Response: No adverse reaction; IV Status: Completed infusion; IV Intake: [id number] Disposition Summary: 12/08/22 21:10 Discharge Ordered Notes: Location: Home cp3 Condition: Stable cp3 Diagnosis - Epileptic seizures related to external causes, not intractable, without status cp3 epilepticus - Alcohol use, unspecified cp3 - Altered mental status, unspecified - RESOLVED cp3 Followup: cp3 - With: Ricky Ugalde MD - When: 1 - 2 days - Reason: Recheck today's complaints Discharge Instructions: - Discharge Summary Sheet cp3 - Alcohol Intoxication cp3 - Seizure, Adult cp3 Forms: - Medication Reconciliation Form cp3 - Thank You Letter cp3 - Antibiotic Education cp3 - Prescription Opioid Use cp3 - Patient Portal Instructions cp3 - Leadership Thank You Letter cp3 Prescriptions: - Keppra 500 mg Oral Tablet - take 1 tablet by ORAL route every 12 hours; 20 tablet; Refills: 0, Product cp3 Selection Permitted Signatures: Dispatcher [employer] Surjit Manuel MD MD cp3 Salomon Goldman RN RN jl7 Beata Rivero RN RN lg3 Renée Marshall RN RN ko1 Corrections: (The following items were deleted from the chart) 19:45 19:17 Unremarkable urine. cp3 cp3 20:05 20:05 CHANDRIKA < 2.2. cp3 cp3
[2022-12-09 00:25] VITALS: TEMP 98
[2022-12-09 00:28] VITALS: O2SAT 100
[2022-12-09 00:29] VITALS: BP 107/83
--- NOTE | 2022-12-10 14:39 | EKG ---
Test Date: 2022-12-08 Test Time: 19:48:42 [employer] Presser: [place] MEASUREMENT RESULTS: Intervals: Rate: 85 TN: 172 QRSD: 88 QT: 364 QTc: 433 [place]: P: 66 TN: 172 QRS: 78 T: 81 INTERPRETIVE STATEMENTS: Normal sinus rhythm with sinus arrhythmia Normal ECG Compared to ECG 08/12/2021 21:06:42 No significant changes Electronically Signed On 12-10-22 14:33:30 CDT by Hayden Frank
== END 2022-12-08 22:25 | disposition home or self-care (01) ==
LOC: ER 18:01
DX: G40.509 Epileptic seizures related to external causes, not intractable, without status epilepticus (principal); F10.90 Alcohol use, unspecified, uncomplicated; Z91.018 Allergy to other foods; Z78.1 Physical restraint status
CPT/HCPCS: 96365; 93005; 87040 ×2; 85025; 81001; 80048; 36415; 82140; 85610; 80076; 83605; 85730; 84702; 80307; 70450; 96375; 96372; 99285; 96366; 80143; 80179; 82077; J1953; J3486; J0696

== ENCOUNTER 2022-12-09 04:24 | Emergency (ER) | payer OTHER ==
--- OUTSIDE RECORDS SUMMARY | 2022-12-09 04:28 | XMS REPORT | Continuity of Care Document ---
:2000 Author Organization [facility] t Address [address] [place] [id number] Care Team Providers Name Role Phone Unavailable Unavailable Unavailable Problems This patient has no known problems. Allergies, Adverse Reactions, Alerts This patient has no known allergies or adverse reactions. Medications This patient has no known medications. Procedures This patient has no known procedures. Encounters Start End Encounter Admission Attending Care Care Encounter Source Date/Time Date/Time Type Type Clinicians Facility Department ID 2021-06-26 Outpatient [facility] [id number] [place] 19:37:59 [id number] [facility] 2019-05-17 2019-05-17 Outpatient [facility] [id number] 13:16:00 13:16:00 01 karsten Pender 2019-05-17 2019-05-17 Outpatient [facility] [id number] 13:16:00 13:16:00 01 karsten Alcantara 2018-06-04 2018-06-04 Outpatient [facility] [id number] 10:32:00 10:32:00 00 karsten Alcantara 2018-06-04 2018-06-04 Outpatient [facility] [id number] 10:32:00 10:32:00 00 karsten Alcantara Results This patient has no known results.
[2022-12-09] MEDS ORDERED: ZIPRASIDONE MESYLA 20 MG/VIAL IM ONE (04:56)
[2022-12-09 05:28] LABS: Absolute Lymphocytes (CBC) 1.4 K/uL (0.7-4.9); Hematocrit 42.2 % (36.0-45.0); Lymphocytes % 10.8 % (15.3-44.8); MCV 88.8 fL (80-100); MPV 10.2 fL (7.6-11.3); Platelets 204 thou/uL (152-406); RBC Red Blood Cell Count 4.75 M/uL (3.86-4.86)
[2022-12-09 05:38] LABS: Specific Gravity 1.024 (1.005-1.030)
[2022-12-09 05:39] LABS: SARS-CoV-2 Antigen Rapid Res Negative (Negative)
[2022-12-09 05:42] LABS: Specific Gravity 1.024 (1.005-1.030); Urine Bacteria <20 /HPF (<20); Urine Bilirubin NEGATIVE (Negative); Urine Blood Negative (Negative); Urine Clarity Extremely Turbid (Clear); Urine Color Yellow (Yellow); Urine Glucose NEGATIVE (Negative); Urine Mucus 3+ /HPF (None Seen); Urine Protein 1+ (Negative); Urine RBC <5 /HPF (None Seen); Urine Urobilinogen Normal (Normal); Urine pH 5.5 (5.0-7.0)
[2022-12-09] MEDS ORDERED: NA CHLORIDE 0.9% 1,000 ML ONE (06:19)
[2022-12-09] MEDS ORDERED: THIAMINE 200 MG/2 ML INJ ONE (06:19)
[2022-12-09 06:23] LABS: Benzodiazepines POSITIVE (NEGATIVE); Cocaine NEGATIVE (NEGATIVE); METHAMPHETAM NEGATIVE (NEGATIVE); Phencyclidine NEGATIVE (NEGATIVE); THC Cannibis POSITIVE (NEGATIVE)
[2022-12-09 06:24] LABS: Barbiturates NEGATIVE (NEGATIVE); Methadone NEGATIVE (NEGATIVE); Opiates NEGATIVE (NEGATIVE)
[2022-12-09 06:29] LABS: ALT/SGPT 18 U/L (13-56); AST/SGOT 16 U/L (15-37); Albumin 4.2 g/dL (3.4-5.0); Alkaline Phosphatase 62 U/L (45-117); BUN Blood Urea Nitrogen 8 mg/dL (7-18); Bicarbonate 23 mEq/L (21-32); Bilirubin Direct 0.1 mg/dL (0-0.2); Bilirubin Indirect, Calculated 0.3 mg/dL (0.2-0.8); Bilirubin Total 0.4 mg/dL (0.2-1.0); Glomerular Filtration Rate 120 ml/min (=/>90); Glucose Level 78 mg/dL (74-106); Potassium 3.5 mEq/L (3.5-5.1); Protein, Total 7.4 g/dL (6.4-8.2); Sodium Level 142 mEq/L (136-145)
[2022-12-09 06:38] LABS: Protime INR 1.06
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
[2022-12-10 07:45] VITALS: O2SAT 100
[2022-12-10 07:48] VITALS: BP 121/71; TEMP 98.8
== END 2022-12-10 07:34 | disposition home or self-care (01) ==
LOC: ER 04:24
DX: R41.82 Altered mental status, unspecified (principal); T50.905A Adverse effect of unspecified drugs, medicaments and biological substances, initial encounter; Z20.822 Contact with and (suspected) exposure to COVID-19; Z91.018 Allergy to other foods
CPT/HCPCS: 85025; 81001; 80048; 36415; 81025; 85610; 80076; 85730; 80307; 80143; 80179; 82077; 87811; J3411; J3486; J7030; 93005

== ENCOUNTER 2023-02-02 16:10 | Emergency (ER) | payer OTHER ==
--- OUTSIDE RECORDS SUMMARY | 2023-02-02 16:15 | XMS REPORT | Continuity of Care Document ---
:[address] [facility] t Address [address] [facility] [address] [place] [id number] Care Team Providers Name Role Phone Jose AntonioYvanen Primary Care Physician NADIA MOREAU Attending Clinician Unavailable Nadia Moreau DO Attending Clinician KYA VIDAL Attending Clinician Unavailable ALAINA GOVEA Attending Clinician Unavailable Alaina Govea DO Attending Clinician JAMIR LEPE Attending Clinician Unavailable Jamir Lepe MD Attending Clinician ALLISON RECIO Attending Clinician Unavailable BRADY SMITH Attending Clinician Unavailable BRADY SMITH Attending Clinician Unavailable Jewel Santamaria MD Attending Clinician Janine Eugene Attending Clinician Jermain Gustafson MD Attending Clinician Nicholas Carrion MD Attending Clinician JERMAIN GUSTAFSON Attending Clinician Unavailable Chauncey Smith MD Attending Clinician Doctor Unassigned, [place] Tract Attending Clinician Unavailable Camila López Attending Clinician Alec Rivera MD Attending Clinician ALEC RIVERA Attending Clinician Unavailable Jewel Santamaria MD Admitting Clinician JEWEL SANTAMARIA Admitting Clinician Unavailable ALEC RIVERA Admitting Clinician Unavailable Payers Payer Name Policy Type Policy Number Effective Date Expiration Date Courtney JONES [id number] 2019 00:00:00 [place] [facility] [id number] 2017 HEALTH 00:00:00 [place] [id number] 2022 00:00:00 CIGNA O [id number] 2022 00:00:00 Problems Condition Condition Condition Status Onset Resolution Last Treating Co mments Source Name Details Category Date Date Treatment Clinician Date Dehydratio Dehydratio Disease Active U nivers n n 9-12 ity of 00:00: [place] [facility] Weakness Weakness Disease Active Unive [...] rs active active ity of problems problems [facility] Allergies, Adverse Reactions, Alerts Allergy Allergy Status Severity Reaction(s) Onset Inactive Treating Comm ents Source Name Type Date Date Clinician [place] [facility] Active Hives Univers And ty to [...] ity of 00:00: [place] 00 Medical Branch NO KNOWN Drug Active Univers ALLERGIE Class ity of S [facility] Social History Social Habit Start Date Stop Date Quantity Comments Source History of Passive smoker University of tobacco use [facility] Exposure to 2022-05-17 2022-05-27 Not sure [facility] SARS-CoV-2 00:00:00 10:57:00 [facility] (event) [place] Tobacco use and 2020-12-02 2020-12-02 Smokeless tobacco Un iversity of exposure 00:00:00 00:00:00 non-user [facility] Sex Assigned At [birth year] Universit y of 00:00:00 00:00:00 [facility] Smoking Status Start Date Stop Date Source Never smoked tobacco [facility] Medications Ordered Filled Start Stop Current Ordering Indication Dosage Frequency Signature Comments Components Source Medication Medication Date Date Medication? Clinician (SIG) Name Name NaCl 0.9% 2022- No 500mL at 999 [facility] ers (NS) bolus 08-28 mL/hr, 500 it y of infusion 23:08: 01:40 mL, IV [place] 500 mL 00 :00 Piggyback, Medical ONCE, 1 Branch dose, On [place] 08/28/22 at 1815, STAT ketamine 2022- No 200mg 200 mg, Univ ers (KETALAR) 08-28 Intramuscu ity of injection 23:03: 22:57 lar, ONCE, [place] 200 mg 00 :00 1 dose, On Medical [place] 08/28/22 Branch at 1815, Routine diphenhydrA 2022- No 50mg 50 mg, Uni vers MINE 08-28 Intramuscu ity of (BENADRYL) 23:01: 22:55 lar, ONCE, [place] injection 00 :00 1 dose, On Medi lilibeth 50 mg [facility] 08/28/22 Branch at 1815, STAT haloperidol 2022- No 2.5mg 2.5 mg, U nivers lactate 08-28 Intramuscu ity o f (HALDOL) 22:59: 22:55 lar, ONCE [place] as injection 00 :00 NOW, 1 Medical 2.5 mg dose, On Branch [place] 08/28/22 at 1815, STAT levETIRAcet 2022- No 1500mg 1,500 mg, Univers am (KEPPRA) 08-28-08 IV ity of in NACL 19:15: 19:43 Piggyback, [place] as (ISO-OS) 00 :00 ONCE, 1 Medical 1,500 dose, On Branch mg/100 mL [place] 08/28/22 RTU at 1415, Administer over 15 Minutes, 100 mL levETIRAcet 2022-2022- No [id number] 500mg Take 1 Univers am (KEPPRA) 08-28 [id number] tablet by it y of 500 mg 00:00: 04:59 mouth in [place] tablet 00 :00 the Medical morning Branch and 1 tablet in the evening. Do all this for 30 days. ibuprofen 2022-2022- No 600mg 600 mg, Uni vers (IBU) 03-28- Oral, ity of tablet 600 11:45: 11:53 ONCE, 1 [place] mg 00 :00 dose, On Medical 03/28/22 Branch at 0545, CHEN ibuprofen 2022-0 Yes [id number] 600mg Take 1 Univers 600 mg 1-06 tablet by ity of tablet 00:00: mouth [place] 00 every 8 Medical (eight) Branch hours as needed for Pain (scale 4-6). ibuprofen 2022-0 Yes [id number] 600mg Take 1 Univers 600 mg 1-06 tablet by ity of tablet 00:00: mouth [place] 00 every 8 Medical (eight) Branch hours as needed for Pain (scale 4-6). ibuprofen 2022-0 Yes [id number] 600mg Take 1 Univers 600 mg 1-06 tablet by ity of tablet 00:00: mouth [place] 00 every 8 Medical (eight) Branch hours as needed for Pain (scale 4-6). ibuprofen 2022-0 Yes [id number] 600mg Take 1 Univers 600 mg 1-06 tablet by ity of tablet 00:00: mouth [place] 00 every 8 Medical (eight) Branch hours as needed for Pain (scale 4-6). amoxicillin 2022-0 2022- No [id number] 500mg Take 1 Univers 500 mg 03-28 capsule by ity of capsule 00:00: 05:59 mouth in [place] 00 :00 the Medical morning Branch and 1 capsule at noon and 1 capsule in the evening. Do all this for 10 days. amoxicillin 2022- No [id number] 500mg Take 1 Univers 500 mg 03-28 capsule by ity of capsule 00:00: 05:59 mouth in [place] 00 :00 the Medical morning Branch and 1 capsule at noon and 1 capsule in the evening. Do all this for 10 days. Potassium 0 Yes 40meq 40 mEq, [facility] ers Bicarb-Citr 9-14 Oral, ity of ic Acid 14:00: DAILY, [place] (EFFER-K) 00 First dose Medi lilibeth effervescen on [facility] t tablet 40 12/04/20 at mEq 0900, Until Discontinu ed, Routine Potassium Yes 40meq 40 mEq, Univ ers Bicarb-Citr 9-14 Oral, ity of ic Acid 14:00: DAILY, [place] (EFFER-K) 00 First dose Medi lilibeth effervescen on [facility] t tablet 40 12/04/20 at mEq 0900, Until Discontinu ed, Routine prazosin Yes 1mg 1 mg, Univers (MINIPRES) 9-14 Oral, QHS, ity of capsule 1 02:00: First dose [place] mg 00 on [facility] 12/03/20 at [place] 2100, Until Discontinu ed, Routine prazosin Yes 1mg 1 mg, Univers (MINIPRES) 9-14 Oral, QHS, ity of capsule 1 02:00: First dose [place] mg 00 on [facility] 12/03/20 at [place] 2100, Until Discontinu ed, Routine vitamin 2020- No [id number] 1000ug Take 1 U nivers B-12 1,000 9-14 10-15 tablet by ity of mcg tablet 00:00: 04:59 mouth [place] 00 :00 daily for Medical 30 days. [place] vitamin 2020- No [id number] 1000ug Take 1 U nivers B-12 1,000 9-14 10-15 tablet by ity of mcg tablet 00:00: 04:59 mouth [place] 00 :00 daily for Medical 30 days. [place] gadoteridol 2020- No [id number] .2mL/kg 11.8 mL Univers (PROHANCE-1 12-03 (0.2 mL/kg i ty of 5 mL) 17:00: 17:00 ?59 kg), [place] injection 00 :00 Intravenou Medi lilibeth 11.8 mL s, ONCE, 1 Branch dose, On Thu12/03/20 at 1200, Routine gadoteridol 2020-2020- No [id number] .2mL/kg 11.8 mL Univers (PROHANCE-1 12-03 (0.2 mL/kg i ty of 5 mL) 17:00: 17:00 ?59 kg), [place] injection 00 :00 Intravenou Medi lilibeth 11.8 mL s, ONCE, 1 Branch dose, On Thu12/03/20 at 1200, Routine vitamin 2020-0 Yes 1000ug 1,000 mcg, Un spring B-12 12-03 Oral, ity of (CYANOCOBAL 14:00: DAILY, [place] RAM) 00 First dose Medical tablet on Thu Branch 1,000 mcg 12/03/20 at 0900, Until [...] RAM) 00 First dose Medical tablet on Thu Branch 1,000 mcg 12/03/20 at 0900, Until [...] doses, Medical mEq/100 mL First dose Bra nch RTU IVPB 20 on Thu mEq 12/03/20 at 0800, Last dose on Thu12/03/20 at 1000, 100 mL potassium 20202020- No 20meq 20 mEq, IV Univers chloride 20 12-03 Piggyback, i ty of mEq/100 mL 13:00: 16:59 Q2H, 2 [place] (KCL) 20 00 :00 doses, Medical mEq/100 mL First dose Bra [facility] RTU IVPB 20 on Mon mEq 12/03/20 at 0800, Last dose on 12/03/20 at 1000, 100 mL ciprofloxac 2020- No [id number] 500mg Take 1 Univers in HCl 500 12-03 tablet by ity of mg tablet 00:00: 04:59 mouth [place] 00 :00 every 12 Medical (twelve) Branch hours for 7 days. ciprofloxac 2020- No [id number] 500mg Take 1 Univers in HCl 500 [...] Until Discontinu ed, Routine gadoteridol 2020- No [id number] .2mL/kg 11.8 mL Univers (PROHANCE-1 12-02 (0.2 mL/kg i ty of 5 mL) 17:45: 17:45 ?59 kg), [place] injection 00 :00 Intravenou Medi lilibeth 11.8 mL s, ONCE, 1 Branch dose, On [place] 12/02/20 at 1245, Routine gadoteridol 2020- No [id number] .2mL/kg 11.8 mL Univers (PROHANCE-1 12-02 (0.2 mL/kg i ty of 5 mL) 17:45: 17:45 ?59 kg), [place] injection 00 :00 Intravenou Medi lilibeth 11.8 mL s, ONCE, 1 Branch dose, On [place] 12/02/20 at 1245, Routine cefTRIAXone Yes 1000mg 1,000 mg, Univers (ROCEPHIN) 9-12 IV ity of 1,000 mg in 16:30: Piggyback, [place] NaCl 0.9% 00 Q24H ABX, Medic al (NS) 50 mL First dose Bra nch MINI-BAG on [place] 12/02/20 at 1130, Until Discontinu ed, Administer over 30 Minutes, 50 mL
Reas on for Anti-Infec tive: Documented Infection< br>Documen carole Infection Site: Urine
D uration of Therapy: 7 days cefTRIAXone Yes 1000mg 1,000 mg, Univers (ROCEPHIN) 9-12 IV ity of 1,000 mg in 16:30: Piggyback, [place] NaCl 0.9% 00 Q24H ABX, Medic al (NS) 50 mL First dose Bra nch MINI-BAG on [place] 12/02/20 at 1130, Until Discontinu ed, Administer over 30 Minutes, 50 mL
Reas on for Anti-Infec tive: Documented Infection< br>Documen carole Infection Site: Urine
D uration of Therapy: 7 days NaCl 0.9% 0 Yes 1000mL at 50 Unive rs (NS) IV 9-12 mL/hr, IV ity of infusion 15:30: Infusion, [place] 1,000 mL 00 CONTINUOUS Medic al , Starting Branch on 12/02/20 at 1030, Until Discontinu ed, Routine NaCl 0.9% 0 Yes 1000mL at 50 Unive rs (NS) IV 9-12 mL/hr, IV ity of infusion 15:30: Infusion, [place] 1,000 mL 00 CONTINUOUS Medic al , Starting Branch on 12/02/20 at 1030, Until Discontinu ed, Routine acetaminoph Yes 650mg 650 mg, Un spring en 9-12 Oral, ity of (TYLENOL) 15:19: Q6HPRN, [place] tablet 650 42 Starting Medic al mg on [place] Branch 12/02/20 at 1019, Until Discontinu ed, Routine, Pain (scale 4-6) docusate 0 Yes 100mg 100 mg, Unive rs (COLACE) 12-02 Oral, ity of capsule 100 15:19: QDAILYPRN, [place] mg 42 Starting Medical on [facility] 12/02/20 at 1019, Until Discontinu ed, Routine, Constipati on acetaminoph 0 Yes 650mg 650 mg, Un spring en 12-02 Oral, ity of (TYLENOL) 15:19: Q6HPRN, [place] tablet 650 42 Starting Medic al mg [...] 1 [place] mg 00 :00 dose, Count Includes [facility] 12/02/20 at Branch 0615, STAT midazolam 2020-0 2020- No 1mg 1 mg, IV Uni vers (VERSED) 12-02 Push, ity of injection 1 11:15: 10:15 ONCE, 1 [place] mg 00 :00 dose, Count Includes [facility] 12/02/20 at Branch 0615, STAT midazolam 2020-0 2020- No 1mg 1 mg, IV Uni vers (VERSED) 12-02 Push, ity of injection 1 10:45: 09:30 ONCE, 1 [place] mg 00 :00 dose, Count Includes [facility] 12/02/20 at Branch 0545, STAT midazolam 2020-0 202- No 1mg 1 mg, IV Uni vers (VERSED) 12-02 Push, ity of injection 1 10:45: 09:30 ONCE, 1 [place] mg 00 :00 dose, Count Includes [facility] 12/02/20 at Branch 0545, STAT NaCl 0.9% 2020- Yes 1000mL at 125 Univ ers (NS) IV 9-12 mL/hr, IV ity of infusion 10:00: Infusion, [place] 1,000 mL 00 CONTINUOUS Medic al , Starting Branch [place] 12/02/20 at 0500, Until Discontinu ed, Routine NaCl 0.9% 2020-0 Yes 1000mL at 125 Univ ers (NS) IV 9-12 mL/hr, IV ity of infusion 10:00: Infusion, [place] 1,000 mL 00 CONTINUOUS Medic al , Starting [facility] 12/02/20 at 0500, Until Discontinu ed, Routine ondansetron 1-0 Yes 4mg 4 mg, Slow Univers (ZOFRAN 9-12 IV Push, ity of (PF)) 09:52: Q6HPRN, [place] injection 4 57 Starting Medi lilibeth mg [facility] 12/02/20 at 0452, Until Discontinu ed, Routine, Nausea and Vomiting (N/V) ondansetron 1-0 Yes 4mg 4 mg, Slow Univers (ZOFRAN 9-12 IV Push, ity of (PF)) 09:52: Q6HPRN, [place] injection 4 57 Starting Medi lilibeth mg [facility] 12/02/20 at 0452, Until Discontinu ed, Routine, Nausea and Vomiting (N/V) acetaminoph 2020-0 Yes 650mg 650 mg, Un spring en 12 Oral, ity of (TYLENOL) 09:52: Q6HPRN, [place] tablet 650 44 Starting Medic al mg [facility] 12/02/20 at 0452, Until Discontinu ed, Routine, Pain (scale 1-3), Temp > 38.5 C acetaminoph 1-0 Yes 650mg 650 mg, Un spring en 12 Oral, ity of (TYLENOL) 09:52: Q6HPRN, [place] tablet 650 44 Starting Medic al mg [facility] 12/02/20 at 0452, Until Discontinu ed, Routine, Pain (scale 1-3), Temp > 38.5 C NaCl 0.9% 2020-0 202- No 1000mL at 999 Uni vers (NS) bolus 12-0212 mL/hr, ity of infusion 09:00: 10:23 1,000 mL, [place] 1,000 mL 00 :00 IV Medical Piggyback, Branch ONCE, 1 dose, [place] 12/02/20 at 0400, STAT NaCl 0.9% 2020- No 1000mL at 999 [facility] vers (NS) bolus 12-02 mL/hr, ity of infusion 09:00: 10:23 1,000 mL, [place] 1,000 mL 00 :00 IV Medical [facility] ONCE, 1 dose, [place] 12/02/20 at 0400, STAT cefTRIAXone 2020-2020- No 1000mg 1,000 mg, Univers (ROCEPHIN) 12-02 IV ity of 1,000 mg in 08:45: 08:24 [place], [place] NaCl 0.9% 00 :00 ONCE, 1 Medical (NS) 50 mL dose, [place] Bran ch MINI-BAG 12/02/20 at 0345, Administer over 30 Minutes, 50 mL
R fabio for Anti-Infec tive: Documented Infection< br>Documen carole Infection Site: Urine
D uration of Therapy: 7 days cefTRIAXone 2020- No 1000mg 1,000 mg, Univers (ROCEPHIN) 12-02 IV ity of 1,000 mg in 08:45: 08:24 [place], [place] NaCl 0.9% 00 :00 ONCE, 1 Medical (NS) 50 mL dose, [facility] ch MINI-BAG 12/02/20 at 0345, Administer over 30 Minutes, 50 mL
R fabio for Anti-Infec tive: Documented Infection< br>Documen carole Infection Site: Urine
D uration of Therapy: 7 days midazolam 2020-0 2020- No 1mg 1 mg, IV Uni vers (VERSED) 12-02 Push, ity of injection 1 07:15: 06:42 ONCE, 1 [place] mg 00 :00 dose, Count Includes [facility] 12/02/20 at Branch 0215, STAT midazolam 2020-0 2020- No 1mg 1 mg, IV Uni vers (VERSED) 12-02 Push, ity of injection 1 07:15: 06:42 ONCE, 1 [place] mg 00 :00 dose, Count Includes [facility] 12/02/20 at Branch 0215, STAT NaCl 0.9% 0 2020- No 500mL at 999 [facility] ers (NS) bolus 12-02 09-12 mL/hr, 500 it y of infusion 07:00: 07:12 mL, IV [place] 500 mL 00 :00 Piggyback, Medical ONCE, 1 Branch dose, [place] 12/02/20 at 0200, STAT NaCl 0.9% 2020- No 500mL at 999 [facility] ers (NS) bolus 12-02 09-12 mL/hr, 500 it y of infusion 07:00: 07:12 mL, IV [place] 500 mL 00 :00 Piggyback, Medical ONCE, 1 Branch dose, [place] 12/02/20 at 0200, STAT cefTRIAXone 2020- No 1000mg 1,000 mg, Univers (ROCEPHIN) 11-30 IV ity of 1,000 mg in 07:30: 07:03 [facility] [place], [place] NaCl 0.9% 00 :00 ONCE, 1 Medical (NS) 50 mL dose, Fri Bran ch MINI-BAG 11/30/20 at 0230, Administer over 30 Minutes, 50 mL
R fabio for Anti-Infec tive: Documented Infection< br>Documen carole Infection Site: Urine
D uration of Therapy: Other (see Comments) cefTRIAXone 2020- No 1000mg 1,000 mg, Univers (ROCEPHIN) 11-30 IV ity of 1,000 mg in 07:30: 07:03 [facility] [place], [place] NaCl 0.9% 00 :00 ONCE, 1 Medical (NS) 50 mL dose, Fri Bran ch MINI-BAG 11/30/20 at 0230, Administer over 30 Minutes, 50 mL
R fabio for Anti-Infec tive: Documented Infection< br>Documen carole Infection Site: Urine
D uration of Therapy: Other (see Comments) Nitrofurant 2020- Yes [id number] 100mg Take 1 Univers oin&Nit. 9-10 capsule by ity o f [place] 00:00: mouth 2 [place] (MACROBID) 00 (two) Medical 100 mg times Branch capsule daily. Nitrofurant Yes [id number] 100mg Take 1 Univers oin&Nit. 9-10 capsule by ity o f [place] 00:00: mouth 2 [place] (MACROBID) 00 (two) Medical 100 mg times Branch capsule daily. Nitrofurant 2020-0 Yes [id number] 100mg Take 1 Univers oin&Nit. 9-10 capsule by ity o f [place] 00:00: mouth 2 [place] (MACROBID) 00 (two) Medical 100 mg times Branch capsule daily. Nitrofurant 2020-0 Yes [id number] 100mg Take 1 Univers oin&Nit. 9-10 capsule by ity o f [place] 00:00: mouth 2 [place] (MACROBID) 00 (two) Medical 100 mg times Branch capsule daily. Nitrofurant 2020-0 Yes [id number] 100mg Take 1 Univers oin&Nit. 9-10 capsule by ity o f [place] 00:00: mouth 2 [place] (MACROBID) 00 (two) Medical 100 mg times Branch capsule daily. Nitrofurant 2020-0 Yes [id number] 100mg Take 1 Univers oin&Nit. 9-10 capsule by ity o f [place] 00:00: mouth 2 [place] (MACROBID) 00 (two) Medical 100 mg times Branch capsule daily. Nitrofurant 2020-0 Yes [id number] 100mg Take 1 Univers oin&Nit. 9-10 capsule by ity o f [place] 00:00: mouth 2 [place] (MACROBID) 00 (two) Medical 100 mg times Branch capsule daily. Nitrofurant 2020-0 Yes [id number] 100mg Take 1 Univers oin&Nit. 9-10 capsule by ity o f [place] 00:00: mouth 2 [place] (MACROBID) 00 (two) Medical 100 mg times Branch capsule daily. Nitrofurant 2020-0 Yes [id number] 100mg Take 1 Univers oin&Nit. 9-10 capsule by ity o f [place] 00:00: mouth 2 [place] (MACROBID) 00 (two) Medical 100 mg times Branch capsule daily. Nitrofurant 2020-0 Yes [id number] 100mg Take 1 Univers oin&Nit. 9-10 capsule by ity o f [place] 00:00: mouth 2 [place] (MACROBID) 00 (two) Medical 100 mg times Branch capsule daily. Nitrofurant 2021-0 Yes [id number] 100mg Take 1 Univers oin&Nit. 9-10 capsule by ity o f [place] 00:00: mouth 2 [place] (MACROBID) 00 (two) Medical 100 mg times Branch capsule daily. HYDROcodone 2019- No 1{tbl} 1 tablet, Univers -acetaminop 3-08 03-08 Oral, ity of hen (NORCO 06:45: 05:37 ONCE, 1 [place] 5) 5-325 mg 00 :00 dose, [place] Med ical tablet 1 05/29/19 at Branch tablet 0045, CHEN hydrocortis 2015- Yes Apply to Un spring one 1 % 3-11 affected ity of cream 00:00: area(s) [place] 00 daily. Medical Branch hydrocortis 2016-0 Yes Apply to Un spring one 1 % 3-11 affected ity of cream 00:00: area(s) [place] 00 daily. Medical Branch hydrocortis 2016-0 Yes Apply to Un spring one 1 % 3-11 affected ity of cream 00:00: area(s) [place] 00 daily. Medical Branch hydrocortis 2016- Yes Apply to Un spring one 1 % 3-11 affected ity of cream 00:00: area(s) [place] 00 daily. Medical Branch hydrocortis 2016-0 Yes Apply to Un spring one 1 % 3-11 affected ity of cream 00:00: area(s) [place] 00 daily. Medical Branch hydrocortis 2016-0 Yes Apply to Un spring one 1 % 3-11 affected ity of cream 00:00: area(s) [place] 00 daily. Medical Branch hydrocortis 2016-0 Yes Apply to Un spring one 1 % 3-11 affected ity of cream 00:00: area(s) [place] 00 daily. Medical Branch hydrocortis 2016-0 Yes Apply to Un spring one 1 % 3-11 affected ity of cream 00:00: area(s) [place] 00 daily. Medical Branch hydrocortis 2016-0 Yes Apply to Un spring one 1 % 3-11 affected ity of cream 00:00: area(s) [place] 00 daily. Medical Branch hydrocortis 2016-0 Yes Apply to Un spring one 1 % 3-11 affected ity of cream 00:00: area(s) [place] 00 daily. Medical Branch hydrocortis 2016-0 Yes Apply to Un spring one 1 % 3-11 affected ity of cream 00:00: area(s) [place] 00 daily. Medical Branch hydrocortis 2016-0 Yes Apply to Un spring one 1 % 3-11 affected ity of cream 00:00: area(s) [place] 00 daily. Medical Branch hydrocortis 2016-0 Yes Apply to Un spring one 1 % 3-11 affected ity of cream 00:00: area(s) [place] 00 daily. Medical Branch hydrocortis 2016-0 Yes Apply to Un spring one 1 % 3-11 affected ity of cream 00:00: area(s) [place] 00 daily. Medical Branch crotamiton 2015- Yes [id number] After warm Univers (EURAX) 10 3-08 bath apply ity of % lotion 00:00: lotion to [place] 00 entire Medical body Branch excluding face and scalp. Repeat in 24 hours. cetirizine Yes [id number] 10mg Take 1 Tab Univers (ZYRTEC) 10 3-08 by mouth ity of mg tablet 00:00: at bedtime [place] 00 as needed Medical for Other Branch (itching). crotamiton Yes [id number] After warm Univers (EURAX) 10 3-08 bath apply ity of % lotion 00:00: lotion to [place] 00 entire Medical body Branch excluding face and scalp. Repeat in 24 hours. cetirizine 2015- Yes [id number] 10mg Take 1 Tab Univers (ZYRTEC) 10 3-08 by mouth ity of mg tablet 00:00: at bedtime [place] 00 as needed Medical for Other Branch (itching). crotamiton Yes [id number] After warm Univers (EURAX) 10 3-08 bath apply ity of % lotion 00:00: lotion to [place] 00 entire Medical body Branch excluding face and scalp. Repeat in 24 hours. cetirizine 2015-0 Yes [id number] 10mg Take 1 Tab Univers (ZYRTEC) 10 3-08 by mouth ity of mg tablet 00:00: at bedtime [place] 00 as needed Medical for Other Branch (itching). crotamiton 2015-0 Yes [id number] After warm Univers (EURAX) 10 3-08 bath apply ity of % lotion 00:00: lotion to [place] 00 entire Medical body Branch excluding face and scalp. Repeat in 24 hours. cetirizine 2015-0 Yes [id number] 10mg Take 1 Tab Univers (ZYRTEC) 10 3-08 by mouth ity of mg tablet 00:00: at bedtime [place] 00 as needed Medical for Other Branch (itching). crotamiton 2015- Yes [id number] After warm Univers (EURAX) 10 3-08 bath apply ity of % lotion 00:00: lotion to [place] 00 entire Medical body Branch excluding face and scalp. Repeat in 24 hours. cetirizine Yes [id number] 10mg Take 1 Tab Univers (ZYRTEC) 10 3-08 by mouth ity of mg tablet 00:00: at bedtime [place] 00 as needed Medical for Other Branch (itching). crotamiton Yes [id number] After warm Univers (EURAX) 10 3-08 bath apply ity of % lotion 00:00: lotion to [place] 00 entire Medical body Branch excluding face and scalp. Repeat in 24 hours. cetirizine 2015- Yes [id number] 10mg Take 1 Tab Univers (ZYRTEC) 10 3-08 by mouth ity of mg tablet 00:00: at bedtime [place] 00 as needed Medical for Other Branch (itching). crotamiton 2015-0 Yes [id number] After warm Univers (EURAX) 10 3-08 bath apply ity of % lotion 00:00: lotion to [place] 00 entire Medical body Branch excluding face and scalp. Repeat in 24 hours. cetirizine 2015-0 Yes [id number] 10mg Take 1 Tab Univers (ZYRTEC) 10 3-08 by mouth ity of mg tablet 00:00: at bedtime [place] 00 as needed Medical for Other Branch (itching). crotamiton Yes [id number] After warm Univers (EURAX) 10 3-08 bath apply ity of % lotion 00:00: lotion to [place] 00 entire Medical body Branch excluding face and scalp. Repeat in 24 hours. cetirizine Yes [id number] 10mg Take 1 Tab Univers (ZYRTEC) 10 3-08 by mouth ity of mg tablet 00:00: at bedtime [place] 00 as needed Medical for Other Branch (itching). crotamiton Yes [id number] After warm Univers (EURAX) 10 3-08 bath apply ity of % lotion 00:00: lotion to [place] 00 entire Medical body Branch excluding face and scalp. Repeat in 24 hours. cetirizine Yes [id number] 10mg Take 1 Tab Univers (ZYRTEC) 10 3-08 by mouth ity of mg tablet 00:00: at bedtime [place] 00 as needed Medical for Other Branch (itching). crotamiton Yes [id number] After warm Univers (EURAX) 10 3-08 bath apply ity of % lotion 00:00: lotion to [place] 00 entire Medical body Branch excluding face and scalp. Repeat in 24 hours. cetirizine Yes [id number] 10mg Take 1 Tab Univers (ZYRTEC) 10 3-08 by mouth ity of mg tablet 00:00: at bedtime [place] 00 as needed Medical for Other Branch (itching). crotamiton Yes [id number] After warm Univers (EURAX) 10 3-08 bath apply ity of % lotion 00:00: lotion to [place] 00 entire Medical body Branch excluding face and scalp. Repeat in 24 hours. cetirizine Yes [id number] 10mg Take 1 Tab Univers (ZYRTEC) 10 3-08 by mouth ity of mg tablet 00:00: at bedtime [place] 00 as needed Medical for Other Branch (itching). crotamiton Yes [id number] After warm Univers (EURAX) 10 3-08 bath apply ity of % lotion 00:00: lotion to [place] 00 entire Medical body Branch excluding face and scalp. Repeat in 24 hours. cetirizine Yes [id number] 10mg Take 1 Tab Univers (ZYRTEC) 10 3-08 by mouth ity of mg tablet 00:00: at bedtime [place] 00 as needed Medical for Other Branch (itching). crotamiton Yes [id number] After warm Univers (EURAX) 10 3-08 bath apply ity of % lotion 00:00: lotion to [place] 00 entire Medical body Branch excluding face and scalp. Repeat in 24 hours. cetirizine Yes [id number] 10mg Take 1 Tab Univers (ZYRTEC) 10 3-08 by mouth ity of mg tablet 00:00: [place]time [place] 00 [place] needed Medical for Other Branch (itching). crotamiton Yes [id number] After warm Univers (EURAX) 10 3-08 bath apply ity of % lotion 00:00[place] 00 entire Medical body Branch excluding face and scalp. Repeat in 24 hours. cetirizine Yes [id number] 10mg Take 1 Tab [facility] (ZYRTEC) 10 [...] for Wheezing or Shortness of Breath. albuterol 2015-0 Yes 1{puff} Inhale 1-2 Univers (PROAIR 7-17 [...] needed for Wheezing or Shortness of Breath. Vital Signs Vital Name Observation Time Observation Value Comments Source Systolic blood 2022-08-29 00:00:00 133 mm[Hg] Univer sity [facility] Diastolic blood 2022-08-29 00:00:00 84 mm[Hg] [facility] 2022-08-29 00:00:00 94 /min [facility] Respiratory rate 2022-08-29 00:00:00 17 /min [facility] Oxygen saturation in 2022-08-29 00:00:00 95 /min [facility] Arterial blood by [facility] Pulse oximetry [place] Body temperature 2022-08-28 18:45:00 36.33 Latoya [facility] Body height 2022-08-28 18:45:00 157.5 cm [facility] Body weight 2022-08-28 18:45:00 53.524 kg [facility] BMI 2022-08-28 18:45:00 21.58 kg/m2 [facility] Systolic blood 2022-05-27 17:00:00 140 mm[Hg] Univer sity [facility] Diastolic blood 2022-05-27 17:00:00 122 mm[Hg] [facility] Heart rate 2022-05-27 17:00:00 79 /min [facility] Body temperature 2022-05-27 17:00:00 36 Latoya [facility] Respiratory rate 2022-05-27 17:00:00 20 /min [facility] Body weight 2022-05-27 17:00:00 53.524 kg [facility] Oxygen saturation in 2022-05-27 17:00:00 99 /min [facility] of Arterial blood by [facility] Pulse oximetry Branch Systolic blood 2022-03-30 04:21:00 112 mm[Hg] Univer sity of pressure [facility] Diastolic blood 2022-03-30 04:21:00 72 mm[Hg] Unive rsity of pressure [facility] Heart rate 2022-03-30 04:21:00 91 /min [facility] Body temperature 2022-03-30 04:21:00 37.11 Latoya [facility] Respiratory rate 2022-03-30 04:21:00 18 /min [facility] Body height 2022-03-30 04:21:00 162.6 cm [facility] Body weight 2022-03-30 04:21:00 53.524 kg [facility] [place] [facility] BMI 2022-03-30 04:21:00 20.25 kg/m2 [facility] [place] [facility] Oxygen saturation in 2022-03-30 04:21:00 99 /min [facility] of Arterial blood by [facility] Pulse oximetry Branch Systolic blood 2022-03-28 10:49:00 100 mm[Hg] Univer sity of [facility] Diastolic blood 2022-03-28 10:49:00 65 mm[Hg] Unive rsity of [facility] Heart rate 2022-03-28 10:49:00 90 /min [facility] [place] [facility] Body temperature 2022-03-28 10:49:00 36.89 Latoya [facility] Respiratory rate 2022-03-28 10:49:00 14 /min [facility] Body height 2022-03-28 10:49:00 167.6 cm [facility] [place] [facility] Body weight 2022-03-28 10:49:00 53.797 kg [facility] [place] [facility] BMI 2022-03-28 10:49:00 19.14 kg/m2 [facility] Oxygen saturation in 2022-03-28 10:49:00 100 /min University of Arterial blood by [facility] Pulse oximetry Branch Systolic blood 2020-12-04 12:43:00 118 mm[Hg] Univer sity of pressure [facility] Diastolic blood 2020-12-04 12:43:00 65 mm[Hg] Unive rsity of pressure [facility] Heart rate 2020-12-04 12:43:00 69 /min Universi ty of [facility] Body temperature 2020-12-04 12:43:00 36.5 Latoya Univ ersity of [facility] Branch Respiratory rate 2020-12-04 12:43:00 15 /min Univ ersity of [facility] Branch Oxygen saturation in 2020-12-04 12:43:00 97 /min University of Arterial blood by [facility] Pulse oximetry Branch Body height 2020-12-02 23:01:00 162.6 cm [facility] [place] [facility] [place] Body weight 2020-12-02 23:01:00 58.968 kg [facility] [place] [facility] [place] BMI 2020-12-02 23:01:00 22.31 kg/m2 Universi ty of [facility] Body mass index 2020-12-02 23:01:00 58.99 % Unive rsity of (BMI) [Percentile] [facility] [place] ica Per age and sex Branch Systolic blood 2020-12-02 11:00:00 104 mm[Hg] Univer sity of pressure [facility] Diastolic blood 2020-12-02 11:00:00 71 mm[Hg] Unive rsity of pressure [facility] Heart rate 2020-12-02 11:00:00 74 /min Universi ty of [facility] Respiratory rate 2020-12-02 11:00:00 18 /min Univ ersity of [facility] Branch Oxygen saturation in 2020-12-02 11:00:00 98 /min University of Arterial blood by [facility] Pulse oximetry Branch Body temperature 2020-12-02 05:55:00 36.44 Latoya Univ ersity of [facility] Body height 2020-12-02 05:55:00 162.6 cm [facility] [place] [facility] [place] Body weight 2020-12-02 05:55:00 58.968 kg Universi ty of [facility] Branch BMI 2020-12-02 05:55:00 22.31 kg/m2 [facility] Systolic blood 2020-11-30 08:00:00 100 mm[Hg] Univer [facility]ity [facility] Diastolic blood 2020-11-30 08:00:00 66 mm[Hg] Unive rsity [facility] Heart rate 2020-11-30 08:00:00 55 /min [facility] Respiratory rate 2020-11-30 08:00:00 14 /min [facility] Oxygen saturation in 2020-11-30 08:00:00 100 /min University of Arterial blood by [employer] lilibeth Pulse oximetry Branch Body height 2020-11-30 05:22:00 162.6 cm [facility] [place] [facility] [place] Body weight 2020-11-30 05:22:00 58.968 kg [facility] BMI 2020-11-30 05:22:00 22.31 kg/m2 [facility] [place] [facility] [place] Body temperature 2020-11-30 05:10:00 36.44 Latoya [facility] Body temperature 2019-05-29 05:43:00 36.61 Latoya [facility] Systolic blood 2019-05-29 04:50:00 118 mm[Hg] Univer [facility]ity [facility] Diastolic blood 2019-05-29 04:50:00 86 mm[Hg] Unive rsity [facility] Heart rate 2019-05-29 04:50:00 61 /min [facility] Respiratory rate 2019-05-29 04:50:00 18 /min [facility] Oxygen saturation in 2019-05-29 04:50:00 99 /min University of Arterial blood by [employer] illibeth Pulse oximetry Branch Body weight 2019-05-29 02:56:37 70.308 kg [facility] Body temperature 2019-05-29 05:43:00 36.61 Latoya [facility] Systolic blood 2019-05-29 04:50:00 118 mm[Hg] Univer [facility]ity [facility] Diastolic blood 2019-05-29 04:50:00 86 mm[Hg] Unive rsity of [facility] Heart rate 2019-05-29 04:50:00 61 /min [facility] Respiratory rate 2019-05-29 04:50:00 18 /min [facility] Oxygen saturation in 2019-05-29 04:50:00 99 /min [facility] Arterial blood by [facility] Pulse oximetry [place] Body weight 2019-05-29 02:56:37 70.308 kg [facility] Procedures Procedure Date / Time Performing Source Performed Clinician URINE DRUG (IMMUNOASSAY) - 2022-08-[address] [facility] COMPREHENSIVE DRUG SCREEN W/O 23:12:00 Nm dical [place] REFLEX URINALYSIS 2022-08-[facility] COMP. METABOLIC PANEL (90414) 2022-08-28 Singer [facility] 19:12:00 [facility] SALICYLATE 2022-08-28 [facility] [place] 19:12:00 [facility] ETHANOL 2022-08-28 [facility] [place] 19:12:00 [facility] CBC WITH DIFF 2022-08-28 [facility] [place] 19:12:00 [facility] NOTICE OF PRIVACY PRACTICES 2022-03-30 Doctor Unassigned, [facility] 04:17:54 [place] [facility] [place] CONSENT/REFUSAL FOR DIAGNOSIS 2022-03-30 Doctor Unassigned, [facility] AND TREATMENT 04:16:07 [place] [facility] RAPID STREP SCREEN FOR GROUP 2022-03-28 Jamir Lepe [facility] A 10:55:00 [facility] RAPID INFLUENZA A/B 2022-03-28 Jamir Lepe [facility] 10:55:00 [facility] COVID-19 (ID NOW RAPID 2022-03-28 Jamir Lepe [facility] TESTING) 10:55:00 [facility] CONSENT/REFUSAL FOR DIAGNOSIS 2022-03-28 Doctor Unassigned, [facility] AND TREATMENT 10:40:13 [place] [facility] [place] MR BRAIN W WO CONTRAST 2020-12-03 Marquez Philippe [facility] 16:44:59 [facility] GALV ONLY - SYPHILIS IGG/IGM 2020-12-03 Marquez Philippe [facility] 09:57:00 Medical Branch ELECTROENCEPHALOGRAM 2020-12-03 Jose Martin [facility] 00:00:00 Medical Branch MR LUMBAR SPINE W WO CONTRAST 2020-12-02 Marquez [facility] [place] 17:43[facility] LUMBAR SPINE WO CONTRAST 2020-12-02 Jose Martin [facility] 16:47:15 Medical Branch PHOSPHORUS 2020-12-02 Jose Martin [facility] x[place] 16:10:00 Medical Branch CREATINE KINASE 2020-12-02 [facility] [place] 16:10:00 [facility] MAGNESIUM 2020-12-02 [facility] 16:10:00 [facility] VITAMIN B12, LEVEL 2020-12-02 Jose Martin [facility] 16:10:00 [facility] FOLATE 2020-12-02 [facility] 16:10:00 Medical Branch BASIC METABOLIC PANEL (NA, K, 2020-12-02 Marquez Philippe [facility] CL, CO2, GLUCOSE, BUN, 16:10:00 Medical B ranch CREATININE, CA) CBC WITH DIFF 2020-12-02 [facility] 16:10:00 [facility] HIV 1/2 AG-AB WITH REFLEX 2020-12-02 [facility] ABDOMEN PELVIS WO CONTRAST 2020-12-02 Jermain Gustafson [facility] 08:43:26 [facility] CREATINE KINASE [facility] 07:13[facility] Branch COMP. METABOLIC PANEL (90904) 2020-12-02 [facility] 07:13[facility]00 [facility] THYROID STIMULATING HORMONE 2020-[facility]-02 [facility] 07:13[facility]00 [facility] POCT TEST 2020-12-02 Jermain Gustafson [facility] 06:36:00 [facility] COVID-19 (ID NOW RAPID 2020-12-02 [facility] 06:35:00 [facility] URINE DRUG (IMMUNOASSAY) - 2020-12-[address] [facility] COMPREHENSIVE DRUG SCREEN W/O 06:32:00 Me dical Branch REFLEX URINALYSIS 2020-12-02 Jermain Gustafson [facility] [place] 06:31:00 [facility] CBC WITH DIFF 2020-12-02 Barrychristian [facility] [place] 06:15:00 [facility] LACTIC ACID WHOLE BLOOD 2020-12-02 Sj [facility] 06:14:00 [facility] NOTICE OF PRIVACY PRACTICES 2020-12-02 Doctor Unassigned, [facility] 05:51:23 [place] [facility] CONSENT/REFUSAL FOR DIAGNOSIS 2020-12-02 Doctor Unassigned, [facility] AND TREATMENT 05:51:04 [place] [facility] CT HEAD WO CONTRAST 2020-11-30 Chauncey Smith [facility] 06:48:07 [facility] POCT GLUCOSE(AGE >30DAYS) 2020-11-[address] [facility] 05:31:00 [facility] AC PANEL 20 + LACTIC ACID 2020-11-[address] [facility] 05:31:00 [facility] POCT GLUCOSE (AUTOMATED) 2020-11-30 Chauncey Smith [facility] 05:30:00 [facility] POCT TEST 2020-11-30 Chauncey Smith [facility] 05:26:00 [facility] URINE DRUG (IMMUNOASSAY) - 2020-11-30 Chauncey Smith [facility] COMPREHENSIVE DRUG SCREEN 05:25:00 Medica l Branch URINALYSIS 2020-11-30 Chauncey Smith [facility] 05:25:00 [facility] COVID-19 (ID NOW RAPID 2020-11-30 Chauncey Smith [facility] TESTING) 05:25:00 [facility] MAGNESIUM 2020-11-30 Chauncey Smith [facility] 05:16:00 [facility] COMP. METABOLIC PANEL (86363) 2020-11-30 Chauncey Smith [facility] 05:16:00 [facility] CBC WITH DIFF 2020-11-30 Chauncey Smith [facility] 05:16:00 Medical Branch CREATINE KINASE 2020-11-30 Chauncey Smith [facility] ex 05:15:00 Medical Branch NOTICE OF PRIVACY PRACTICES 2020-11-30 Doctor Unassigned, [facility] 05:01:00 [place] [facility] CT HEAD WO CONTRAST 2019-05-29 Alec Rivera [facility] 04:16:04 Medical Branch XR CERVICAL SPINE 3 VW 2019-05-29 Alec Rivera [facility] 04:15:52 Medical Branch NOTICE OF PRIVACY PRACTICES 2019-05-29 Doctor Unassigned, [facility] 03:47:53 [place] [facility] CONSENT/REFUSAL FOR DIAGNOSIS 2019-05-29 Doctor Unassigned, [facility] AND TREATMENT 03:47:41 [place] [facility] Encounters Start End Encounter Admission Attending Care Care Encounter Source Date/Time Date/Time Type Type Clinicians Facility Department ID 2021-06-26 Outpatient [facility] [id number] [place] 19:37:59 [id number] Health 2021-01-21 Emergency X [facility] SNS [id number] Univers 22:04:01 ity [facility] 2021-01-21 Emergency [facility] [id number] Univers 22:03:07 ity [facility] 2021-01-21 Emergency [facility] [id number] [facility]:40[facility] 2022-08-28 2022-08-28 Emergency [facility] [id number] Univers 13:43:00 20:52:00 NADIA omalley [facility] 2022-08-28 2022-08-[address] [facility] [id number] Univers 13:43:00 20:52:00 Nadia MORRIS [id number] i ty STEPHENIE [id number] [facility] [id number] [facility] 084 Branch 2022-06-18 2022-06-18 Outpatient R YOUNG, [facility] [id number] Univers 13:30:00 13:30:00 KYA omalley o f [facility] 2022-05-27 2022-05-27 Emergency X SINGER [facility] ERT [id number] Univers 10:57:00 13:04:00 NADIA omalley [facility] 2022-05-27 2022-05-27 Emergency [facility] [id number] Univers 10:57:00 13:04:00 Nadia MORRIS [id number] i ty [facility] [id number] [facility] [id number] [address] 2022-03-29 2022-03-29 Emergency [facility] [id number] Univers 22:27:00 22:35:[address] [facility] 2022-03-29 2022-03-29 Emergency [facility] [id number] Univers 22:27:00 22:35:00 Alainara Von MORRIS [id number] ity of [place] [id number] [facility] [id number] [address] 2022-03-28 2022-03-28 Emergency X VASVENUS, [facility] ERT [id number] Univers 04:57:00 06:07:[address] [facility] 2022-03-28 2022-03-28 Emergency [facility] [id number] Univers 04:57:00 06:07:00 Jamir MORRIS [id number] i ty of [facility] [id number] [facility] [id number] [address] 2021-11-27 2021-11-27 Outpatient Brooke RECIO [facility] [id number] Univers 09:30:00 09:30:00 ALLISON omalley [facility] 2020 2020 Outpatient BRADY GOTTLIEB [facility] [id number] Univers 15:00:00 15:00:00 BRADY SMITH [facility] 2020-12-02 2020-12-04 Emergency Little Santamaria [id number] Univers 09:18:00 10:50:00 Jewel Mckeon 350.1.13.10 i ty of [facility] 4.2.7.2.686 Tramaine as [id number] [facility] 092 Branch 2020-12-02 2020-12-02 Emergency Janine Alvarez [facility] [id number] .[id number] Univers 00:47:00 09:12:00 Sj Jermain Morris [id number] ity of [place] 4.2.7.2.686 [facility] [id number] Medical 084 Branch 2020-12-02 2020-12-02 Outpatient X SJ, [facility] SAPPHIRE [id number] Univers 00:47:00 09:12:00 JERMAIN ity of [facility] 2020-11-30 2020-11-30 [facility] [id number] Univers 00:08:00 04:02:00 Chauncey Morris [id number] ity of [place] 4.2.7.2.686 [facility] [id number] [facility] 084 Branch 2020-11-30 2020-11-30 Orders Doctor ILDEFONSO [id number] Univers 00:00:00 00:00:00 Only Unassigned, JOSE [id number] ity of [place] [facility] 4.2.7.2.686 Tramaine as [id number] [facility] 009 Branch 2019-06-15 2019-06-15 Outpatient R [facility] [id number] Univers 10:00:00 10:00:00 ity of [facility] 2019-06-15 2019-06-15 Outpatient R [facility] [id number] Univers 10:00:00 10:00:00 ity of [facility] 2019-06-15 2019-06-15 Telephone de [facility] Darrell [id number] Univers 00:00:00 00:00:00 Marcos Lerma [id number] ity of [facility] 4.2.7.2.686 [place] [facility] [facility] [id number] [facility] 225 Branch 2019-06-15 2019-06-15 Telephone de [facility] Darrell [id number] 00:00:00 00:00:00 Marcos Lerma 350.1.13.10 [facility] [id number] [facility] [id number] 2019-06-14 2019-06-14 Outpatient R [facility] [id number] Univers 14:40:00 14:40:00 ity [facility] 2019-05-28 2019-05-28 Emergency [facility] [id number] Univers 20:59:13 23:56:00 Alec Morris 350.1.13.10 i ty [facility] 4.2.7.2.686 [facility] [id number] [address] 2019-05-28 2019-05-28 Emergency [facility] [id number] Univers 20:59:13 23:56:00 [facility] 2019-05-28 2019-05-28 Emergency [facility] [id number] 20:59:13 23:56:00 Alec Morris 350.1.13.10 [place] 4.2.7.2.686 [place] [id number] [facility] 2019-05-28 2019-05-28 Orders Doctor FREGOSO [id number] Univers 00:00:00 00:00:00 Only Unassigned, JOSE 350.1.13.10 ity of [place] [facility] 4.2.7.2.686 [facility] [id number] [facility] 009 [place] 2019-05-28 2019-05-28 Orders Doctor ILDEFONSO [id number] [id number] 00:00:00 00:00:00 Only Unassigned, JOSE 350.1.13.10 [place] [facility] 4.2.7.2.686 [id number] 2019-05-17 2019-05-17 Outpatient MHIE MHIE [id number] Memoria 13:16:00 13:16:00 01 karsten Alcantara 2019-05-17 2019-05-17 Outpatient MHIE MHIE [id number] Memoria 13:16:00 13:16:00 01 karsten Alcantara 2018-06-04 2018-06-04 Outpatient NEHEMIAH CERNA [id number] Memoria 10:32:00 10:32:00 00 karsten Alcantara 2018-06-04 2018-06-04 Outpatient NEHEMIAH CERNA [id number] Memoria 10:32:00 10:32:00 00 karsten Alcantara Results Test Test Test Results Result Source Description Time Comments Comments SALICYLATE 2022-08- SALICYLATE<10mg/L08/29/19 7:[address] [facility] 00:02:54 [facility] LABORATORYTherapeutic Range: ? Analgesic and Antipyretic Use ? 20-100 mg/L ? ? Anti-Inflammatory Use ? 100-250 mg/L Toxic Range: ? Greater than 300 mg/L ACETAMINOPHEN 2022-08-29 00:02:49 Test Item Value Reference Range Interpretation Comme nts ACETAMINOP (test code = 3043711041) 10.0-30.0 L VIRIDIANA (test code = VIRIDIANA) Toxic: Greater than 200 ug/mL @ 4 hour post ingestion or greater than 50 ug/mL @ 12 hour post ingestion Lab Interpretation (test code = Abnormal 61731-6) [facility] 00[facility]02:44 ALCOHOL<10mg/dL08/28/2022 7:02 PM [facility]<10 Nixzedjm10-753 Toxic>100 Depression of BREAD ICER>400 [facility]. METABOLIC PANEL (14373) 2022-08-28 20:03:16 Test Item Value Reference Range Interpretation Comments NA (test code = 140 mmol/L 135-145 4203726494) K (test code = 3.5 mmol/L 3.5-5.0 2164248955) CL (test code = 107 mmol/L 98-108 0994976557) CO2 TOTAL (test code 24 mmol/L 23-31 = 2701727360) AGAP (test code = 9 2-16 2272256638) BUN (test code = 9 mg/dL 7-23 4697959060) GLUCOSE (test code = 82 mg/dL 70-110 2478577596) CREATININE (test code 0.63 mg/dL 0.50-1.04 = 4440951513) TOTAL BILI (test code 0.7 mg/dL 0.1-1.1 = 1632234857) CALCIUM (test code = 8.8 mg/dL 8.6-10.6 1846739801) T PROTEIN (test code 6.6 g/dL 6.3-8.2 = 5242510294) ALBUMIN (test code = 4.0 g/dL 3.5-5.0 2611333415) ALK PHOS (test code = 63 U/L 34-122 4452591675) ALTv (test code = 13 U/L 5-35 2-6) AST(SGOT) (test code 19 U/L 13-40 = 2792548990) eGFR (test code = 120.5 mL/min/1.73m2 9779715979) VIRIDIANA (test code = VIRIDIANA) Association of Glomerular Filtration Rate (GFR) and Staging of Kidney Disease* + + +- +| GFR (mL/min/1.73 m2) ?| With Kidney Damage ?| ?Without Kidney Damage+ ------+ ----+ ------+| ?>90 ?| ?Stage one ?| ? Normal ?+ -+ + -+| ?60-89 ?| ?Stage two ?| ? Decreased GFR ? + + +- +| ?30-59 ?| ?Stage three ?| ? Stage three ? + + +- +| ?15-29 ?| ?Stage four ? | ? Stage four ?+ -+ + -+| ?<15 (or dialysis) ? ?| ?Stage five ? | ? Stage five ?+ -+ + -+ *Each stage assumes the associated GFR level [...] or urine or abnormalities in imaging tests). [facility] WITH [id number] 19:40:53 Test Item Value Reference Range Interpretation Comments WBC (test code = 7.33 See_Comment [Automated 6690-2) message] The sy stem which generated this result transmitted reference range : 4.30 - 11.10 10*3/?L. The reference range was not used to interpret this result as normal/abnormal . RBC (test code = 4.27 See_Comment [Automated 789-8) message] The sy stem which generated this result transmitted reference range : 3.93 - 5.25 10*6/?L. The reference range was not used to interpret this result as normal/abnormal . HGB (test code = 12.5 g/dL 11.6-15.0 718-7) HCT (test code = 35.7 % 35.7-45.2 4544-3) MCV (test code = 83.6 fL 80.6-95.5 787-2) MCH (test code = 29.3 pg 25.9-32.8 785-6) MCHC (test code = 35.0 g/dL 31.6-35.1 786-4) RDW-SD (test code = 38.5 fL 39.0-49.9 L 62356-6) RDW-CV (test code = 12.8 % 12.0-15.5 788-0) PLT (test code = 150 See_Comment L [Automated 777-3) message] The sy stem which generated this result transmitted reference range : 166 - 358 10*3/ ?L. The reference r lorene was not used to interpret this result as normal/abnormal . MPV (test code = 12.5 fL 9.5-12.9 63475-6) NRBC/100 WBC (test 0.0 See_Comment [Automat ed code = 6803531424) message] The system which generated this result transmitted reference range : 0.0 - 10.0 /100 WBCs. The refer ence range was not u sed to interpret th is result as normal/abnormal . NRBC x10^3 (test code See_Comment [Auto mated = 9422099533) message] The s [employer] which generated this result transmitted reference range : 10*3/?L. The reference range was not used to interpret this result as normal/abnormal . GRAN MAT (NEUT) % 75.0 % (test code = 770-8) IMM GRAN % (test code 0.30 % = 5712583028) LYMPH % (test code = 14.7 % 736-9) MONO % (test code = 7.5 % 5905-5) EOS % (test code = 2.2 % 713-8) BASO % (test code = 0.3 % 706-2) GRAN MAT x10^3(ANC) 5.50 10*3/uL 1.88-7.09 (test code = 8580982944) IMM GRAN x10^3 (test 0.00-0.06 code = 6517635601) LYMPH x10^3 (test code 1.08 10*3/uL 1.32-3.29 L = 731-0) MONO x10^3 (test code 0.55 10*3/uL 0.33-0.92 = 742-7) EOS x10^3 (test code = 0.16 10*3/uL 0.03-0.39 711-2) BASO x10^3 (test code 0.01-0.07 = 704-7) Lab Interpretation Abnormal (test code = 23243-1) [facility] ONLY - SYPHILIS [id number] 15:29:02 Test Item Value Reference Range Interpretation Comments Syphilis IgG/IgM (test Non-reactive Non-reactive code = 06577-0) VIRIDIANA (test code = VIRIDIANA) Non-reactive - No serologic evidence of T. pallidum infection. Cannot exclude incubating or early syphilis. Submit a second specimen in 2-4 weeks if syphilis is clinically suspected. Equivocal - Further testing to follow. Reactive - Further testing to follow. Lab Interpretation (test Normal code = 07856-7) [facility] ONLY - SYPHILIS [id number] 15:29:02 Test Item Value Reference Range Interpretation Comments Syphilis IgG/IgM (test Non-reactive Non-reactive code = 03344-2) VIRIDIANA (test code = VIRIDIANA) Non-reactive - No serologic evidence of T. pallidum infection. Cannot exclude incubating or early syphilis. Submit a second specimen in 2-4 weeks if syphilis is clinically suspected. Equivocal - Further testing to follow. Reactive - Further testing to follow. Lab Interpretation (test Normal code = 19633-6) [facility] [id number] 23:31:33 Test Item Value Reference Range Interpretation Comments VIT B12 (test code = 367 pg/mL 240-930 6455288615) VIRIDIANA (test code = VIRIDIANA) Biotin has been reported to cause a positive bias, interpret results relative to patient's use of biotin. Lab Interpretation (test Normal code = 05470-6) [facility], [id number] 23:31:33 Test Item Value Reference Range Interpretation Comments VIT B12 (test code = 367 pg/mL 240-930 4240525670) VIRIDIANA (test code = VIRIDIANA) Biotin has been reported to cause a positive bias, interpret results relative to patient's use of biotin. Lab Interpretation (test Normal code = 12118-4) [facility] AG-AB WITH [id number] 22:52:15 Test Item Value Reference Range Interpretation Comments HIV Negative Negative Semi-quantitative (test code = 41853-5) VIRIDIANA (test code = Non-reactive for HIV-1 VIRIDIANA) antigen and HIV-1/HIV-2 antibodies. ?No laboratory evidence of HIV infection. ?Repeat in 2-4 weeks if acute HIV infection is suspected. [facility] 1/2 AG-AB WITH [id number] 22:52:15 Test Item Value Reference Range Interpretation Comments HIV Negative Negative Semi-quantitative (test code = 08676-1) VIRIDIANA (test code = Non-reactive for HIV-1 VIRIDIANA) antigen and HIV-1/HIV-2 antibodies. ?No laboratory evidence of HIV infection. ?Repeat in 2-4 weeks if acute HIV infection is suspected. [facility] 21:55:01 Test Item Value Reference Range Interpretation Comments FOLATE SER (test code = 10.1 ng/mL 3.0-20.0 3354498177) Lab Interpretation (test code = Normal 04220-1) [facility] 21:55:01 Test Item Value Reference Range Interpretation Comments FOLATE SER (test code = 10.1 ng/mL 3.0-20.0 2222172519) Lab Interpretation (test code = Normal 33660-1) [id number] 20:12:25 Test Item Value Reference Range Interpretation Comments MAGNESIUM (test code = 5991459359) 1.6 mg/dL 1.7-2.4 L Lab Interpretation (test code = Abnormal 49600-1) [facility] [id number] 20:12:25 Test Item Value Reference Range Interpretation Comments MAGNESIUM (test code = 8756660892) 1.6 mg/dL 1.7-2.4 L Lab Interpretation (test code = Abnormal 96243-4) [facility] Metabolic Panel (Na, K, Cl, CO2, Glucose, BUN, Creatinine, Ca)2020-12-02 20:12:19 Test Item Value Reference Range Interpretation Comments NA (test code = 144 mmol/L 135-145 3584613931) K (test code = 3.3 mmol/L 3.5-5.0 L 7100694542) CL (test code = 114 mmol/L 98-108 H 6657377129) CO2 TOTAL (test code = 21 mmol/L 23-31 L 3711030942) AGAP (test code = 2-16 8831918760) BUN (test code = 4 mg/dL 7-23 L 1267700106) GLUCOSE (test code = 71 mg/dL 70-110 9829918149) CREATININE (test code = 0.57 mg/dL 0.50-1.04 0575002841) CALCIUM (test code = 7.8 mg/dL 8.6-10.6 L 1282473428) eGFR (test code = mL/min/1.73m2 3779739688) VIRIDIANA (test code = VIRIDIANA) Association of [...] tests). Lab Interpretation Abnormal (test code = 56536-9) [facility] (Na, K, Cl, CO2, Glucose, BUN, Creatinine, Ca)2020-12-02 20:12:19 Test Item Value Reference Range Interpretation Comments NA (test code = 144 mmol/L 135-145 3011099868) K (test code = 3.3 mmol/L 3.5-5.0 L 5149588389) CL (test code = 114 mmol/L 98-108 H 7962474480) CO2 TOTAL (test code = 21 mmol/L 23-31 L 1468051104) AGAP (test code = 2-16 2277604789) BUN (test code = 4 mg/dL 7-23 L 0746763126) GLUCOSE (test code = 71 mg/dL 70-110 5657087417) CREATININE (test code = 0.57 mg/dL 0.50-1.04 6181774331) CALCIUM (test code = 7.8 mg/dL 8.6-10.6 L 2100939165) eGFR (test code = mL/min/1.73m2 9971057221) VIRIDIANA (test code = VIRIDIANA) Association of [...] tests). Lab Interpretation Abnormal (test code = 22139-1) [facility] [id number] 20:10:53 Test Item Value Reference Range Interpretation Comments PHOSPHORUS (test code = 7028540258) 3.7 mg/dL 2.5-5.0 Lab Interpretation (test code = Normal 25257-4) [facility] [id number] 20:10:53 Test Item Value Reference Range Interpretation Comments PHOSPHORUS (test code = 6705201180) 3.7 mg/dL 2.5-5.0 Lab Interpretation (test code = Normal 96600-1) [facility] Kinase (CK)2020-12-02 20:10:47 Test Item Value Reference Range Interpretation Comments CK (test code = 7852725574) 59 U/L 33-194 Lab Interpretation (test code = Normal 59421-5) [facility] (CK)2020-12-02 20:10:47 Test Item Value Reference Range Interpretation Comments CK (test code = 7913860442) 59 U/L 33-194 Lab Interpretation (test code = Normal 81166-7) [facility] with [id number] 20:10:42 Test Item Value Reference Range Interpretation [...] RDW-SD (test code = 41.4 fL 38.5-49.0 35006-6) RDW-CV (test code = 13.2 % 11.5-14.0 788-0) PLT (test code = See_Comment L [Automated 777-3) message] The sy stem which generated this result transmitted reference range : 135 - 361 10*3/ ?L. The reference r lorene was not used to interpret this result as normal/abnormal . MPV (test code = 13.3 fL 9.4-13.3 29805-0) NRBC/100 WBC (test See_Comment [Automat ed code = 4049579972) message] The system which generated this result transmitted reference range : 0.0 - 10.0 /100 WBCs. The refer ence range was not u sed to interpret th is result as normal/abnormal . NRBC x10^3 (test code <0.01 See_Comment [Auto mated = 6557944225) message] The s ystem which generated this result transmitted reference range : 10*3/?L. The reference range was not used to interpret this result as normal/abnormal . GRAN MAT (NEUT) % 48.7 % (test code = 770-8) IMM GRAN % (test code 0.40 % = 8926585504) LYMPH % (test code = 39.4 % 736-9) MONO % (test code = 8.9 % 5905-5) EOS % (test code = 2.2 % 713-8) BASO % (test code = 0.4 % 706-2) GRAN MAT x10^3(ANC) 2.67 10*3/uL 1.50-10.30 (test code = 1065503352) IMM GRAN x10^3 (test <0.03 0.00-0.06 code = 7942480026) LYMPH x10^3 (test code 2.16 10*3/uL 0.70-7.40 = 731-0) MONO x10^3 (test code 0.49 10*3/uL 0.00-0.50 = 742-7) EOS x10^3 (test code = 0.12 10*3/uL 0.00-0.40 711-2) BASO x10^3 (test code <0.03 0.00-0.10 = 704-7) Lab Interpretation Abnormal (test code = 16645-2) [facility] with [id number] 20:10:42 Test Item Value Reference Range Interpretation Comments WBC (test code = See_Comment [Automated 7690-2) message] The sy stem which generated this result transmitted reference range : 4.50 - 13.50 10*3/?L. The reference range was not used to interpret this result as normal/abnormal . RBC (test code = See_Comment [Automated 109-8) message] The sy stem which generated this [...] RDW-SD (test code = 41.4 fL 38.5-49.0 78803-7) RDW-CV (test code = 13.2 % 11.5-14.0 788-0) PLT (test code = See_Comment L [Automated 777-3) message] The sy stem which generated this result transmitted reference range : 135 - 361 10*3/ ?L. The reference r lorene was not used to interpret this result as normal/abnormal . MPV (test code = 13.3 fL 9.4-13.3 79913-3) NRBC/100 WBC (test See_Comment [Automat ed code = 5593832882) message] The system which generated this result transmitted reference range : 0.0 - 10.0 /100 WBCs. The refer ence range was not u sed to interpret th is result as normal/abnormal . NRBC x10^3 (test code <0.01 See_Comment [Auto mated = 8322109407) message] The s ystem which generated this result transmitted reference range : 10*3/?L. The reference range was not used to interpret this result as normal/abnormal . GRAN MAT (NEUT) % 48.7 % (test code = 770-8) IMM GRAN % (test code 0.40 % = 2196835819) LYMPH % (test code = 39.4 % 736-9) MONO % (test code = 8.9 % 5905-5) EOS % (test code = 2.2 % 713-8) BASO % (test code = 0.4 % 706-2) GRAN MAT x10^3(ANC) 2.67 10*3/uL 1.50-10.30 (test code = 7484465380) IMM GRAN x10^3 (test <0.03 0.00-0.06 code = 9090887690) LYMPH x10^3 (test code 2.16 10*3/uL 0.70-7.40 = 731-0) MONO x10^3 (test code 0.49 10*3/uL 0.00-0.50 = 742-7) EOS x10^3 (test code = 0.12 10*3/uL 0.00-0.40 711-2) BASO x10^3 (test code <0.03 0.00-0.10 = 704-7) Lab Interpretation Abnormal (test code = 58063-1) [facility] [id number] 16:37:32 Test Item Value Reference Range Interpretation Comments TSH (test code = See_Comment Biotin has been 1744639677) reported to cau se a negative bias, interpret resul ts relative to pat ient's use of biotin. [Automated mess age] The system [employer] generated this result transmitted ref erence range: 0.45 - 4 .70 mIU/L. The refe rence range was not u sed to interpret this result as normal/abnor mal. Lab Interpretation (test Normal code = 90228-3) [facility] [id number] 16:37:32 Test Item Value Reference Range Interpretation Comments TSH (test code = See_Comment Biotin has been 9577022736) reported to cau se a negative bias, interpret resul ts relative to pat ient's use of biotin. [Automated mess age] The system [employer] generated this result transmitted ref erence range: 0.45 - 4 .70 mIU/L. The refe rence range was not u sed to interpret this result as normal/abnor mal. Lab Interpretation (test Normal code = 29404-7) [facility] (IMMUNOASSAY) - COMPREHENSIVE DRUG SCREEN W/O [id number] 07:41:34 Test Item Value Reference Range Interpretation Comments AMPHET (test code = Negative Negative 6311722889) FABIO U (test code = Negative Negative 9674097937) BENZO U (test code = Negative Negative 2883253550) Cocaine Metabolite (test Negative Negative code = 1856497383) METHADONE (test code = Negative Negative 3290375430) OPIATES (test code = Negative Negative 4989379261) PCP (test code = Negative Negative 2661388466) THC (test code = Presumptive Positive Negative A 9674811165) VIRIDIANA (test code = VIRIDIANA) Urine Drug [...] testing). Lab Interpretation (test Abnormal code = 70649-5) [facility] (IMMUNOASSAY) - COMPREHENSIVE DRUG SCREEN W/O [id number] 07:41:34 Test Item Value Reference Range Interpretation Comments AMPHET (test code = Negative Negative 3467377357) FABIO U (test code = Negative Negative 6706762125) BENZO U (test code = Negative Negative 1233246997) Cocaine Metabolite (test Negative Negative code = 9410095183) METHADONE (test code = Negative Negative 5783639307) OPIATES (test code = Negative Negative 6366992407) PCP (test code = Negative Negative 1686832877) THC (test code = Presumptive Positive Negative A 7723190300) VIRIDIANA (test code = VIRIDIANA) Urine Drug [...] testing). Lab Interpretation (test Abnormal code = 62257-7) [facility]COMP. METABOLIC PANEL (14721)2020-12-02 07:38:37 Test Item Value Reference Range Interpretation Comments NA (test code = 138 mmol/L 135-145 8374236157) K (test code = 3.8 mmol/L 3.5-5.0 8376193521) CL (test code = 108 mmol/L 98-108 8018261829) CO2 TOTAL (test code = 23 mmol/L 23-31 4231640751) AGAP (test code = 2-16 5253386507) BUN (test code = 5 mg/dL 7-23 L 5709994099) GLUCOSE (test code = 93 mg/dL 70-110 6242958219) CREATININE (test code = 0.61 mg/dL 0.50-1.04 8883666349) TOTAL BILI (test code = 0.7 mg/dL 0.1-1.7 8851474411) CALCIUM (test code = 8.6 mg/dL 8.6-10.6 2374422232) T PROTEIN (test code = 6.5 g/dL 6.3-8.2 1604557251) ALBUMIN (test code = 3.9 g/dL 3.5-5.0 9505286199) ALK PHOS (test code = 56 U/L 34-122 9372227917) ALTv (test code = 15 U/L 5-35 1742-6) AST(SGOT) (test code = 28 U/L 13-40 9378098433) eGFR (test code = mL/min/1.73m2 2781582850) VIRIDIANA (test code = VIRIDIANA) Association of [...] tests). Lab Interpretation Abnormal (test code = 41701-1) [facility]. METABOLIC PANEL (35048)2020-12-02 07:38:37 Test Item Value Reference Range Interpretation Comments NA (test code = 138 mmol/L 135-145 8171128023) K (test code = 3.8 mmol/L 3.5-5.0 4794447176) CL (test code = 108 mmol/L 98-108 0807354705) CO2 TOTAL (test code = 23 mmol/L 23-31 8618215205) AGAP (test code = 2-16 6865325356) BUN (test code = 5 mg/dL 7-23 L 3155349462) GLUCOSE (test code = 93 mg/dL 70-110 8497434390) CREATININE (test code = 0.61 mg/dL 0.50-1.04 5670006009) TOTAL BILI (test code = 0.7 mg/dL 0.1-1.7 3124762281) CALCIUM (test code = 8.6 mg/dL 8.6-10.6 6807330304) T PROTEIN (test code = 6.5 g/dL 6.3-8.2 3034849671) ALBUMIN (test code = 3.9 g/dL 3.5-5.0 9069848251) ALK PHOS (test code = 56 U/L 34-122 2503987374) ALTv (test code = 15 U/L 5-35 1742-6) AST(SGOT) (test code = 28 U/L 13-40 6930057467) eGFR (test code = mL/min/1.73m2 3489478549) VIRIDIANA (test code = VIRIDIANA) Association of [...] tests). Lab Interpretation Abnormal (test code = 23299-1) [facility]AT[facility] [id number] 07:38:17 Test Item Value Reference Range Interpretation Comments CK (test code = 3262109973) 62 U/L 33-194 Lab Interpretation (test code = Normal 19365-9) [facility]CREAT[facility] [id number] 07:38:17 Test Item Value Reference Range Interpretation Comments CK (test code = 8267361523) 62 U/L 33-194 Lab Interpretation (test code = Normal 26560-3) [facility]2021-09-12 07:07:10 Test Item Value Reference Range Interpretation Comments APPEARANCE (test code = Cloudy Clear A 0662418805) COLOR (test code = Yellow Yellow 0406375800) PH (test code = 4.8-8.0 9194207764) SP GRAVITY (test code = 1.003-1.030 1771616494) GLU U QUAL (test code = Normal Normal 5863519983) BLOOD (test code = Negative Negative 9364334153) KETONES (test code = 5 mg/dL Negative A 1026837255) PROTEIN (test code = 100 mg/dL Negative A 2887-8) UROBILIN (test code = 2.0 mg/dL Normal A 3675066063) BILIRUBIN (test code = Negative Negative 0227800960) NITRITE (test code = Negative Negative 7346416078) LEUK DENNIS (test code = 500/uL Negative A 5714187607) RBC/HPF (test code = See_Comment [Autom ated message] 6075709676) The system [employer] generated this result transmit carole reference range : 0 - 3 HPF. The refe rence range was not u sed to interpret th is result as normal/abnormal . WBC/HPF (test code = See_Comment H [Autom ated message] 9537748041) The system [employer] generated this result transmit carole reference range : 0 - 5 HPF. The refe rence range was not u sed to interpret th is result as normal/abnormal . BACTERIA (test code = Many Negative A 8043222655) MUCOUS (test code = Moderate Negative LPF A 4830937063) SQ EPITH (test code = HPF 3466423322) CA OXALATE (test code = See_Comment [Au tomated message] 3182338540) The system [employer] generated this result transmit carole reference range : <=1 HPF. The refere nce range was not u sed to interpret th is result as normal/abnormal . HYAL CAST (test code = See_Comment H [Aut omated message] 2711164335) The system [employer] generated this result transmit carole reference range : <=2 LPF. The refere nce range was not u sed to interpret th is result as normal/abnormal . Lab Interpretation (test Abnormal code = 96290-8) [facility] 07:07:10 Test Item Value Reference Range Interpretation Comments APPEARANCE (test code = Cloudy Clear A 7245388771) COLOR (test code = Yellow Yellow 3538403662) PH (test code = 4.8-8.0 0905834816) SP GRAVITY (test code = 1.003-1.030 9562676752) GLU U QUAL (test code = Normal Normal 4141876860) BLOOD (test code = Negative Negative 3612409284) KETONES (test code = 5 mg/dL Negative A 3651649416) PROTEIN (test code = 100 mg/dL Negative A 2887-8) UROBILIN (test code = 2.0 mg/dL Normal A 1332810144) BILIRUBIN (test code = Negative Negative 4244294339) NITRITE (test code = Negative Negative 9961363715) LEUK DENNIS (test code = 500/uL Negative A 8735629447) RBC/HPF (test code = See_Comment [Autom ated message] 7151964583) The system [employer] generated this result transmit carole reference range : 0 - 3 HPF. The refe rence range was not u sed to interpret th is result as normal/abnormal . WBC/HPF (test code = See_Comment H [Autom ated message] 2299884659) The system [employer] generated this result transmit carole reference range : 0 - 5 HPF. The refe rence range was not u sed to interpret th is result as normal/abnormal . BACTERIA (test code = Many Negative A 9297696769) MUCOUS (test code = Moderate Negative LPF A 9489038775) SQ EPITH (test code = HPF 3261262766) CA OXALATE (test code = See_Comment [Au tomated message] 6939200872) The system [employer] generated this result transmit carole reference range : <=1 HPF. The refere nce range was not u sed to interpret th is result as normal/abnormal . HYAL CAST (test code = See_Comment H [Aut omated message] 5131109218) The system [employer] generated this result transmit carole reference range : <=2 LPF. The refere nce range was not u sed to interpret th is result as normal/abnormal . Lab Interpretation (test Abnormal code = 57005-9) [facility] (ID NOW RAPID TESTING)2020-12-02 06:56:19 Test Item Value Reference Range Interpretation Comments SARS-CoV-2 Rapid ID NOW Not Detected Not Detected (test code = 64616-7) VIRIDIANA (test code = VIRIDIANA) ID NOW COVID-19 Assay is an isothermal nucleic acid amplification test intended for the qualitative detection of nucleic acid from SARS-CoV-2 viral RNA in nasopharyngeal ([employer] E[employer]PER[employer]) specimens. It is used under Emergency Use [...] indicated. Lab Interpretation Normal (test code = 99492-7) [facility] (ID NOW RAPID TESTING)2020-12-02 06:56:19 Test Item Value Reference Range Interpretation Comments SARS-CoV-2 Rapid ID NOW Not Detected Not Detected (test code = 12623-2) VIRIDIANA (test code = VIRIDIANA) ID NOW COVID-19 Assay is an isothermal nucleic acid amplification test intended for the qualitative detection of nucleic acid from SARS-CoV-2 viral RNA in nasopharyngeal ([employer] EQUIPMENT SUPERVISOR) specimens. It is used under Emergency Use [...] indicated. Lab Interpretation Normal (test code = 85473-5) [facility] WITH [id number] 06:42:15 Test Item Value Reference Range Interpretation Comments WBC (test code = See_Comment [Automated message] 6690-2) The system [employer] generated this result transmitted ref erence range: 4.50 - 1 3.50 10*3/?L. The re ference range was not u sed to interpret this result as normal/abnor mal. RBC (test code = See_Comment [Automated message] 789-8) The system [employer] generated this result transmitted ref erence range: [...] RDW-SD (test code 40.5 fL 38.5-49.0 = 02772-8) RDW-CV (test code 13.1 % 11.5-14.0 = 788-0) PLT (test code = See_Comment [Automated message] 777-3) The system [employer] generated this result transmitted ref erence range: 135 - 36 1 10*3/?L. The re ference range was not u sed to interpret this result as normal/abnor mal. MPV (test code = 12.9 fL 9.4-13.3 61911-1) NRBC/100 WBC (test See_Comment [Automat ed message] code = 7826679801) The syste m which generated this result transmitted ref erence range: 0.0 - 10 .0 /100 WBCs. The refer ence range was not u sed to interpret this result as normal/abnor mal. NRBC x10^3 (test <0.01 See_Comment [Automated message] code = 2973779319) The syste m which generated this result transmitted ref erence range: 10*3/?L. The reference range was not used to interpr et this result as normal/abnormal . GRAN MAT (NEUT) % 63.7 % (test code = 770-8) IMM GRAN % (test 0.40 % code = 5152260477) LYMPH % (test code 27.4 % = 736-9) MONO % (test code 7.2 % = 5905-5) EOS % (test code = 1.0 % 713-8) BASO % (test code 0.3 % = 706-2) GRAN MAT 4.40 10*3/uL 1.50-10.30 x10^3(ANC) (test code = 2438981781) IMM GRAN x10^3 0.03 10*3/uL 0.00-0.06 (test code = 5879416178) LYMPH x10^3 (test 1.89 10*3/uL 0.70-7.40 code = 731-0) MONO x10^3 (test 0.50 10*3/uL 0.00-0.50 code = 742-7) EOS x10^3 (test 0.07 10*3/uL 0.00-0.40 code = 711-2) BASO x10^3 (test <0.03 0.00-0.10 code = 704-7) [facility] WITH [id number] 06:42:15 Test Item Value Reference Range Interpretation Comments WBC (test code = See_Comment [Automated message] 3739-2) The system [employer] generated this result transmitted ref erence range: 4.50 - 1 3.50 10*3/?L. The re ference range was not u sed to interpret this result as normal/abnor mal. RBC (test code = See_Comment [Automated message] 919-8) The system [employer] generated this result transmitted ref erence range: [...] RDW-SD (test code 40.5 fL 38.5-49.0 = 71280-6) RDW-CV (test code 13.1 % 11.5-14.0 = 788-0) PLT (test code = See_Comment [Automated message] 777-3) The system whic h generated this result transmitted ref erence range: 135 - 36 1 10*3/?L. The re ference range was not u sed to interpret this result as normal/abnor mal. MPV (test code = 12.9 fL 9.4-13.3 86066-8) NRBC/100 WBC (test See_Comment [Automat ed message] code = 5185759947) The syste m which generated this result transmitted ref erence range: 0.0 - 10 .0 /100 WBCs. The refer ence range was not u sed to interpret this result as normal/abnor mal. NRBC x10^3 (test <0.01 See_Comment [Automated message] code = 2683381438) The syste m which generated this result transmitted ref erence range: 10*3/?L. The reference range was not used to interpr et this result as normal/abnormal . GRAN MAT (NEUT) % 63.7 % (test code = 770-8) IMM GRAN % (test 0.40 % code = 2995726208) LYMPH % (test code 27.4 % = 736-9) MONO % (test code 7.2 % = 5905-5) EOS % (test code = 1.0 % 713-8) BASO % (test code 0.3 % = 706-2) GRAN MAT 4.40 10*3/uL 1.50-10.30 x10^3(ANC) (test code = 5270853065) IMM GRAN x10^3 0.03 10*3/uL 0.00-0.06 (test code = 9102653404) LYMPH x10^3 (test 1.89 10*3/uL 0.70-7.40 code = 731-0) MONO x10^3 (test 0.50 10*3/uL 0.00-0.50 code = 742-7) EOS x10^3 (test 0.07 10*3/uL 0.00-0.40 code = 711-2) BASO x10^3 (test <0.03 0.00-0.10 code = 704-7) [facility] [id number] 06:36:00 Test Item Value Reference Range Interpretation Comments POCT PREG (test code = 1605) neg On board controls acceptable with yes C Line (test code = 3574) POCT PREG LOT # (test code = [id number]) POCT PREG TEST DATE (test code = 3576) Lab Interpretation (test code = Normal 72022-1) [facility] [id number] 06:36:00 Test Item Value Reference Range Interpretation Comments POCT PREG (test code = 1605) neg On board controls acceptable with yes C Line (test code = 3574) POCT PREG LOT # (test code = [id number]) POCT PREG TEST DATE (test code = 3576) Lab Interpretation (test code = Normal 01279-8) [facility] PearlandLactic Acid Whole [id number] 06:31:07 Test Item Value Reference Range Interpretation Comments LACTIC ACID (test code = 2.66 mmol/L 0.50-2.20 H [id number]) Lab Interpretation (test code = Abnormal 37414-8) [facility] [id number] 06:31:07 Test Item Value Reference Range Interpretation Comments LACTIC ACID (test code = 2.66 mmol/L 0.50-2.20 H [id number]) Lab Interpretation (test code = Abnormal 38885-8) [facility] [id number] 08:22:54 Test Item Value Reference Range Interpretation Comments CK (test code = 2367233849) 101 U/L 33-194 Lab Interpretation (test code = Normal 10611-0) [facility] [id number] 08:22:54 Test Item Value Reference Range Interpretation Comments CK (test code = 6028099909) 101 U/L 33-194 Lab Interpretation (test code = Normal 75665-4) [facility] HEAD WO [id number] 07:07:23 Impression: No CT evidence for acute intracranial abnormality. RL: 460 AFC: [id number] Ordering physician: CHAUNCEY SMITH Indication:Altered level of awareness Comparison: None Technique: Axial images of the head were performed without administrationof intravenous contrast material. CT scan was performed according to ALARA(as low asreasonably achievable) principles. Findings: No acute intracranial abnormality is appreciated. Specifically,there is no acute intracranial hemorrhage, mass, mass effect, extra-axialfluid collection or h ydrocephalus. The visualized paranasal sinuses areclear. No middle ear or mastoid effusion is appreciated. There is nocalvarial fracture. [facility], Radiant Results Inft User - 11/30/2020 2:08 AM CDT Ordering physician: CHAUNCEY SMITHIndication: A ltered level of awarenessComparison: NoneTechnique: Axial images of [...] nocalvarial fracture.IMPRESSIONImpression:No CT evidence for acute intracranial abnormalit y.RL: 460AFC: [id number] signed by Pooja Rowland MD, PhD at 11/30/2020 2:07 AMUnAd[facility] TexasCT HEAD WO [id number] 07:07:23Impression: No CT evidence for acute intracranial abnormality. RL: 460 AFC: [id number] Ordering physician: CHAUNCEY SMITH Indication:Altered level of awareness Comparison: None Technique: Axial images of the head were performed without administrationof intravenous contrast material. CT scan was performed according to ALARA(as low asreasonably achievable) principles. Findings: No acute intracranial abnormality is appreciated. Specifically,there is no acute intracranial hemorrhage, mass, mass effect, extra-axialfluid collection or h ydrocephalus. The visualized paranasal sinuses areclear. No middle ear or mastoid effusion is appreciated. There is nocalvarial fracture. [facility], Radiant Results Inft User - 11/30/2020 2:08 AM CDT Ordering physician: CHAUNCEY SMITHIndication: A ltered level of awarenessComparison: NoneTechnique: Axial images of [...] nocalvarial fracture.IMPRESSIONImpression:No CT evidence for acute intracranial abnormalit y.RL: 460AF: [id number] signed by Pooja Rowland MD, PhD at 11/30/2020 2:07 AMUnAdvent[facility] TexasDRUG SCREEN PANEL 2 URINE 2020-11-30 05:54:09 Test Item Value Reference Range Interpretation Comments AMPHET (test code = Negative Negative 5343688258) FABIO U (test code = Negative Negative 6442166614) BENZO U (test code = Presumptive Positive Negative A 3076650560) Cocaine Metabolite (test Negative Negative code = 1729627138) METHADONE (test code = Negative Negative 5247812705) OPIATES (test code = Negative Negative 7662614795) PCP (test code = Negative Negative 5353950986) THC (test code = Presumptive Positive Negative A 0404802557) VIRIDIANA (test code = VIRIDIANA) Urine Drug [...] testing). Lab Interpretation (test Abnormal code = 49996-1) [facility] 2 [id number] 05:54:09 Test Item Value Reference Range Interpretation Comments AMPHET (test code = Negative Negative 2332321884) FABIO U (test code = Negative Negative 4249773147) BENZO U (test code = Presumptive Positive Negative A 9344144334) Cocaine Metabolite (test Negative Negative code = 9703789201) METHADONE (test code = Negative Negative 6382818134) OPIATES (test code = Negative Negative 3775820270) PCP (test code = Negative Negative 3363638652) THC (test code = Presumptive Positive Negative A 1851650284) VIRIDIANA (test code = VIRIDIANA) Urine Drug [...] testing). Lab Interpretation (test Abnormal code = 44812-7) [facility]COVID-19 (ID NOW RAPID TESTING)2020-11-30 05:49:31 Test Item Value Reference Range Interpretation Comments SARS-CoV-2 Rapid ID NOW Not Detected Not Detected (test code = 15358-9) VIRIDIANA (test code = VIRIDIANA) ID NOW COVID-19 Assay is an isothermal nucleic acid amplification test intended for the qualitative detection of nucleic acid from SARS-CoV-2 viral RNA in nasopharyngeal ([employer]) specimens. It is used under Emergency Use [...] indicated. Lab Interpretation Normal (test code = 16980-8) [facility] (ID NOW RAPID TESTING)2020-11-30 05:49:31 Test Item Value Reference Range Interpretation Comments SARS-CoV-2 Rapid ID NOW Not Detected Not Detected (test code = 44317-4) VIRIDIANA (test code = VIRIDIANA) ID NOW COVID-19 Assay is an isothermal nucleic acid amplification test intended for the qualitative detection of nucleic acid from SARS-CoV-2 viral RNA in nasopharyngeal ([employer] EQUIPMENT SUPERVISOR) specimens. It is used under Emergency Use [...] indicated. Lab Interpretation Normal (test code = 12667-5) [facility]IS2021-09-10 05:49:21 Test Item Value Reference Range Interpretation Comments APPEARANCE (test code = Hazy Clear A 1800920674) COLOR (test code = Lazara Yellow A 8109648576) PH (test code = 4.8-8.0 7899522648) SP GRAVITY (test code = 1.003-1.030 8198351031) GLU U QUAL (test code = Normal Normal 1827494059) BLOOD (test code = Negative Negative Interfere nce from 0815399494) ascorbic acid m ay cause false neg ative results. KETONES (test code = 20 mg/dL Negative A 3564558797) PROTEIN (test code = 30 mg/dL Negative A 2887-8) UROBILIN (test code = 4.0 mg/dL Normal A 3486581144) BILIRUBIN (test code = Negative Negative 5255496936) NITRITE (test code = Negative Negative 3103217025) LEUK DENNIS (test code = 500/uL Negative A 4211908398) RBC/HPF (test code = See_Comment H [Autom ated message] 3805861614) The system [employer] generated this result transmitted ref erence range: 0 - 3 HP F. The reference range was not used to int erpret this result as normal/abnormal . WBC/HPF (test code = See_Comment H [Autom ated message] 6187825116) The system [employer] generated this result transmitted ref erence range: 0 - 5 HP F. The reference range was not used to int erpret this result as normal/abnormal . BACTERIA (test code = Few Negative A 6358875847) MUCOUS (test code = Slight Negative LPF A 0225262323) SQ EPITH (test code = HPF 7714667494) Lab Interpretation Abnormal (test code = 96988-9) [facility]2021-09-10 05:49:21 Test Item Value Reference Range Interpretation Comments APPEARANCE (test code = Hazy Clear A 5931830655) COLOR (test code = Lazara Yellow A 5322057681) PH (test code = 4.8-8.0 3860615887) SP GRAVITY (test code = 1.003-1.030 6900348451) GLU U QUAL (test code = Normal Normal 8797031602) BLOOD (test code = Negative Negative Interfere nce from 2973866246) ascorbic acid m ay cause false neg ative results. KETONES (test code = 20 mg/dL Negative A 9278651930) PROTEIN (test code = 30 mg/dL Negative A 2887-8) UROBILIN (test code = 4.0 mg/dL Normal A 3128309157) BILIRUBIN (test code = Negative Negative 5521171466) NITRITE (test code = Negative Negative 1196224443) LEUK DENNIS (test code = 500/uL Negative A 6295696067) RBC/HPF (test code = See_Comment H [Autom ated message] 4240776313) The system [employer] generated this result transmitted ref erence range: 0 - 3 HP F. The reference range was not used to int erpret this result as normal/abnormal . WBC/HPF (test code = See_Comment H [Autom ated message] 6495670059) The system [employer] generated this result transmitted ref erence range: 0 - 5 HP F. The reference range was not used to int erpret this result as normal/abnormal . BACTERIA (test code = Few Negative A 8962724740) MUCOUS (test code = Slight Negative LPF A 9286504354) SQ EPITH (test code = HPF 2241682650) Lab Interpretation Abnormal (test code = 76395-1) [facility] Test Item Value Reference Range Interpretation Comments MAGNESIUM (test code = 1354842751) 2.1 mg/dL 1.7-2.4 Lab Interpretation (test code = Normal 42877-4) [facility] 05[facility]47:51 Test Item Value Reference Range Interpretation Comments MAGNESIUM (test code = 2306300833) 2.1 mg/dL 1.7-2.4 Lab Interpretation (test code = Normal 09271-4) [facility]. METABOLIC PANEL (77708)2020-11-30 05:47:35 Test Item Value Reference Range Interpretation Comments NA (test code = 139 mmol/L 135-145 3693606246) K (test code = 3.4 mmol/L 3.5-5.0 L 4565859306) CL (test code = 105 mmol/L 98-108 6793019287) CO2 TOTAL (test code = 24 mmol/L 23-31 3598615111) AGAP (test code = 2-16 2426386655) BUN (test code = 8 mg/dL 7-23 2098347240) GLUCOSE (test code = 84 mg/dL 70-110 1265124148) CREATININE (test code = 0.70 mg/dL 0.50-1.04 3621022739) TOTAL BILI (test code = 0.6 mg/dL 0.1-1.0 9058757646) CALCIUM (test code = 9.3 mg/dL 8.6-10.6 0735577669) T PROTEIN (test code = 7.7 g/dL 6.3-8.2 1754794075) ALBUMIN (test code = 4.6 g/dL 3.5-5.0 7393312365) ALK PHOS (test code = 76 U/L 34-122 0001134775) ALTv (test code = 19 U/L 5-35 1742-6) AST(SGOT) (test code = 25 U/L 13-40 4639538414) eGFR (test code = mL/min/1.73m2 2921234487) VIRIDIANA (test code = VIRIDIANA) Association of [...] tests). Lab Interpretation Abnormal (test code = 27575-4) [facility]. METABOLIC PANEL (71858)2020-11-30 05:47:35 Test Item Value Reference Range Interpretation Comments NA (test code = 139 mmol/L 135-145 3312988295) K (test code = 3.4 mmol/L 3.5-5.0 L 0894933454) CL (test code = 105 mmol/L 98-108 6946004186) CO2 TOTAL (test code = 24 mmol/L 23-31 2228288987) AGAP (test code = 2-16 1712707840) BUN (test code = 8 mg/dL 7-23 1206069300) GLUCOSE (test code = 84 mg/dL 70-110 7896144370) CREATININE (test code = 0.70 mg/dL 0.50-1.04 4591795872) TOTAL BILI (test code = 0.6 mg/dL 0.1-1.6 2845651690) CALCIUM (test code = 9.3 mg/dL 8.6-10.6 3676283856) T PROTEIN (test code = 7.7 g/dL 6.3-8.2 1025616074) ALBUMIN (test code = 4.6 g/dL 3.5-5.0 0044538043) ALK PHOS (test code = 76 U/L 34-122 0620723631) ALTv (test code = 19 U/L 5-35 2-6) AST(SGOT) (test code = 25 U/L 13-40 6448582959) eGFR (test code = mL/min/1.73m2 8987870816) VIRIDIANA (test code = VIRIDIANA) Association of [...] tests). Lab Interpretation Abnormal (test code = 05243-4) [facility] GLUCOSE (AUTOMATED)2020-11-30 05:45:23 Test Item Value Reference Range Interpretation Comments POCT GLU (test code = 3543136805) 83 mg/dL 70-110 Lab Interpretation (test code = Normal 79267-5) [facility] GLUCOSE (AUTOMATED)2020-11-30 05:45:23 Test Item Value Reference Range Interpretation Comments POCT GLU (test code = 9128399113) 83 mg/dL 70-110 Lab Interpretation (test code = Normal 39383-7) [facility] + LACTIC [id number] 05:35:20 Test Item Value Reference Range Interpretation Comments PH (test code = 2) 7.35-7.45 PCO2 (test code = See_Comment [Automate d 2160962356) message] The sy stem which generated this result transmitted reference range : 35 - 45 mmHg. The reference range was not used to interpret this result as normal/abnormal . PO2 (test code = See_Comment H [Automated 5365517527) message] The sy stem which generated this result transmitted reference range : 80 - 100 mmHg. The reference range was not used to interpret this result as normal/abnormal . HCO3 (test code = See_Comment [Automate d 8802954937) message] The sy stem which generated this result transmitted reference range : 22 - 26 mEq/L. The reference range was not used to interpret this result as normal/abnormal . BE (test code = See_Comment [Automated 3820147279) message] The sy stem which generated this result transmitted reference range : -3.0 - 3.0 mEq/ L. The reference r lorene was not used to interpret this result as normal/abnormal . THB (test code = 13.4 g/dL 12.0-16.0 6901503792) %O2HB (test code = 98.5 % 94.0-99.0 7049370280) %COHB ART (test code = 0.0 % 0.0-1.5 2759788763) %METHB ART (test code = 0.3 % 0.4-1.5 L 9738110435) VOL%O2 ART (test code = 18.8 % 15.0-23.0 4316277168) NA (test code = 137 mmol/L 135-145 2081032129) K+ (test code = 3.5 mmol/L 3.5-5.0 3862798526) AC CA IONZ (test code = 4.60 mg/dL 4.50-5.30 9645324293) GLUCOSE (test code = 81 mg/dL 70-110 4180990175) LACTIC ACID (test code 0.87 mmol/L 0.50-2.20 = 9163745024) Lab Interpretation Abnormal (test code = 34844-6) [facility] + LACTIC [id number] 05:35:20 Test Item Value Reference Range Interpretation Comments PH (test code = 2) 7.35-7.45 PCO2 (test code = See_Comment [Automate d 5703442923) message] The sy stem which generated this result transmitted reference range : 35 - 45 mmHg. The reference range was not used to interpret this result as normal/abnormal . PO2 (test code = See_Comment H [Automated 4291671169) message] The sy stem which generated this result transmitted reference range : 80 - 100 mmHg. The reference range was not used to interpret this result as normal/abnormal . HCO3 (test code = See_Comment [Automate d 4619753420) message] The sy stem which generated this result transmitted reference range : 22 - 26 mEq/L. The reference range was not used to interpret this result as normal/abnormal . BE (test code = See_Comment [Automated 4648768699) message] The sy stem which generated this result transmitted reference range : -3.0 - 3.0 mEq/ L. The reference r lorene was not used to interpret this result as normal/abnormal . THB (test code = 13.4 g/dL 12.0-16.0 9109647025) %O2HB (test code = 98.5 % 94.0-99.0 3643505127) %COHB ART (test code = 0.0 % 0.0-1.5 1399396667) %METHB ART (test code = 0.3 % 0.4-1.5 L 7578483568) VOL%O2 ART (test code = 18.8 % 15.0-23.0 9076593133) NA (test code = 137 mmol/L 135-145 5221012780) K+ (test code = 3.5 mmol/L 3.5-5.0 8300925064) AC CA IONZ (test code = 4.60 mg/dL 4.50-5.30 8292659026) GLUCOSE (test code = 81 mg/dL 70-110 8469069211) LACTIC ACID (test code 0.87 mmol/L 0.50-2.20 = 8013521842) Lab Interpretation Abnormal (test code = 41126-4) [facility] WITH [id number] 05:33:34 Test Item Value Reference Range Interpretation Comments WBC (test code = See_Comment [Automated 1290-2) message] The sy stem which generated this result transmitted reference range : 4.50 - 13.50 10*3/?L. The reference range was not used to interpret this result as normal/abnormal . RBC (test code = See_Comment [Automated 909-8) message] The sy stem which generated this [...] RDW-SD (test code = 41.1 fL 38.5-49.0 67845-8) RDW-CV (test code = 13.2 % 11.5-14.0 788-0) PLT (test code = See_Comment [Automated 777-3) message] The sy stem which generated this result transmitted reference range : 135 - 361 10*3/ ?L. The reference r lorene was not used to interpret this result as normal/abnormal . MPV (test code = 12.5 fL 9.4-13.3 07915-9) NRBC/100 WBC (test See_Comment [Automat ed code = 1994246766) message] The system which generated this result transmitted reference range : 0.0 - 10.0 /100 WBCs. The refer ence range was not u sed to interpret th is result as normal/abnormal . NRBC x10^3 (test code <0.01 See_Comment [Auto mated = 6359052123) message] The s ystem which generated this result transmitted reference range : 10*3/?L. The reference range was not used to interpret this result as normal/abnormal . GRAN MAT (NEUT) % 59.1 % (test code = 770-8) IMM GRAN % (test code 0.40 % = 7068253644) LYMPH % (test code = 31.7 % 736-9) MONO % (test code = 7.0 % 5905-5) EOS % (test code = 1.3 % 713-8) BASO % (test code = 0.5 % 706-2) GRAN MAT x10^3(ANC) 4.58 10*3/uL 1.50-10.30 (test code = 3873415999) IMM GRAN x10^3 (test 0.03 10*3/uL 0.00-0.06 code = 9435043654) LYMPH x10^3 (test code 2.45 10*3/uL 0.70-7.40 = 731-0) MONO x10^3 (test code 0.54 10*3/uL 0.00-0.50 H = 742-7) EOS x10^3 (test code = 0.10 10*3/uL 0.00-0.40 711-2) BASO x10^3 (test code 0.04 10*3/uL 0.00-0.10 = 704-7) Lab Interpretation Abnormal (test code = 02088-6) [facility] WITH [id number] 05:33:34 Test Item Value Reference Range Interpretation [...] RDW-SD (test code = 41.1 fL 38.5-49.0 87922-9) RDW-CV (test code = 13.2 % 11.5-14.0 788-0) PLT (test code = See_Comment [Automated 777-3) message] The sy stem which generated this result transmitted reference range : 135 - 361 10*3/ ?L. The reference r lorene was not used to interpret this result as normal/abnormal . MPV (test code = 12.5 fL 9.4-13.3 01959-2) NRBC/100 WBC (test See_Comment [Automat ed code = 9213322722) message] The system which generated this result transmitted reference range : 0.0 - 10.0 /100 WBCs. The refer ence range was not u sed to interpret th is result as normal/abnormal . NRBC x10^3 (test code <0.01 See_Comment [Auto mated = 6889929061) message] The s ystem which generated this result transmitted reference range : 10*3/?L. The reference range was not used to interpret this result as normal/abnormal . GRAN MAT (NEUT) % 59.1 % (test code = 770-8) IMM GRAN % (test code 0.40 % = 0912514460) LYMPH % (test code = 31.7 % 736-9) MONO % (test code = 7.0 % 5905-5) EOS % (test code = 1.3 % 713-8) BASO % (test code = 0.5 % 706-2) GRAN MAT x10^3(ANC) 4.58 10*3/uL 1.50-10.30 (test code = 8847469776) IMM GRAN x10^3 (test 0.03 10*3/uL 0.00-0.06 code = 1432111134) LYMPH x10^3 (test code 2.45 10*3/uL 0.70-7.40 = 731-0) MONO x10^3 (test code 0.54 10*3/uL 0.00-0.50 H = 742-7) EOS x10^3 (test code = 0.10 10*3/uL 0.00-0.40 711-2) BASO x10^3 (test code 0.04 10*3/uL 0.00-0.10 = 704-7) Lab Interpretation Abnormal (test code = 94798-7) [facility] GLUCOSE(AGE >30DAYS)2020-11-30 05:31:00 Test Item Value Reference Range Interpretation Comments POCT Glu (age>30days) (test code = 83 mg/dL 70-110 3342) Lab Interpretation (test code = Normal 14213-6) [facility] GLUCOSE(AGE >30DAYS)2020-11-30 05:31:00 Test Item Value Reference Range Interpretation Comments POCT Glu (age>30days) (test code = 83 mg/dL 70-110 3342) Lab Interpretation (test code = Normal 00241-5) [facility] [id number] 05:26:00 Test Item Value Reference Range Interpretation Comments POCT PREG (test code = 1605) NEGATIVE On board controls acceptable with POSITIVE C Line (test code = 3574) POCT PREG LOT # (test code = 3575) [id number] POCT PREG TEST DATE (test 03/22/2022 code = 3576) Lab Interpretation (test code = Normal 97254-3) [facility] [id number] 05:26:00 Test Item Value Reference Range Interpretation Comments POCT PREG (test code = 1605) NEGATIVE On board controls acceptable with POSITIVE C Line (test code = 3574) POCT PREG LOT # (test code = 3575) [id number] POCT PREG TEST DATE (test 03/22/2022 code = 3576) Lab Interpretation (test code = Normal 88192-0) [facility] [id number] 04:38:43 1. No intracranial abnormalities.2. Left parietal scalp hematoma with no skull fracture RL: 6190 End of report ORDERING CLINICIAN: ALEC RIVERA TECHNIQUE: Axial scanning of the brain was performed without IV contrast. CT scan was performed according to the ALARA (as low as reasonablyachievable) principal. INDICATION: Head injury COMPARISON: None DISCUSSION:There is no intracranial hemorrhage, extra-axial fluid collections, midlineshift orhydrocephalus. There is no loss of the pineda- white matterdifferentiation. No mass lesion is identified. There is a left parietal scalp hematoma. There is no skull fracture. The parenchymal volume is within normal limits for the patient's age. [facility], Radiant Results Inft User - 05/28/2019 10:39 PM CSTORDERING CLINICIAN: ALEC TRIANAIQUE: Axial scanning of the brain was performed without IV contrast.CT scan was performed according to the ALARA (as low as reasonablyachievable) principal.INDICATION: Head injuryCOMPARISON: NoneDISCUSSION:There is no intracranial hemorrhage, extra-axial fluid collections, midlineshift or hydrocephalus. There is no loss of the pineda-white matterdifferentiation. No mass lesion is identified.There is a left parietal scalp hematoma. There is no skull fracture.The parenchymal volume is within normal limits for the patient's age.IMPRESSION1. No intracranial abnormalities.2. Left parietal scalp hematoma with no skull fractureRL: 6190End of report [facility] C[facility] 3 [id number] 04:36:57Unremarkable cervical spine radiographs RL: 6190 End of report ORDERING PHYSICIAN: ?ALEC RIVERA TECHNIQUE: Cervical spine 3 views HISTORY: Fall, neck injury COMPARISON: None FINDINGS:The alignment of the cervical spine is normal. There are no displaced fractures. The prevertebral soft tissues are normal. [facility], Radiant Results Inft User - 10:38 PM CSTORDERING PHYSICIAN: ALEC BURGESS: Cervical spine 3 viewsHISTORY: Fall, neck injuryCOMPARISON: NoneFINDINGS:The alignment of the cervical spine is normal.There are no displaced fractures.The prevertebral soft tissues are normal.IMPRESSIONUnremarkable cervical spine radiographsRL: 6190End of report [facility]"
[2023-02-02] MEDS ORDERED: NA CHLORIDE 0.9% 1,000 ML ONE (16:41)
[2023-02-02 16:45] LABS: Specific Gravity 1.008 (1.005-1.030); Urine Bilirubin NEGATIVE (Negative); Urine Blood Negative (Negative); Urine Clarity Clear (Clear); Urine Color Colorless (Yellow); Urine Glucose 3+ (Negative); Urine Protein NEGATIVE (Negative); Urine Urobilinogen Normal (Normal)
[2023-02-02 16:48] LABS: Protime INR 1.08
[2023-02-02 16:49] LABS: Absolute Lymphocytes (CBC) 1.7 K/uL (0.7-4.9); Hematocrit 37.9 % (36.0-45.0); Platelets 155 thou/uL (152-406); RBC Red Blood Cell Count 4.31 M/uL (3.86-4.86)
[2023-02-02 16:53] LABS: Barbiturates NEGATIVE (NEGATIVE); Benzodiazepines POSITIVE (NEGATIVE); Cocaine POSITIVE (NEGATIVE); METHAMPHETAM NEGATIVE (NEGATIVE); Methadone NEGATIVE (NEGATIVE); Opiates NEGATIVE (NEGATIVE); Phencyclidine NEGATIVE (NEGATIVE); THC Cannibis POSITIVE (NEGATIVE)
[2023-02-02 17:09] LABS: ALT/SGPT 16 U/L (13-56); AST/SGOT 12 U/L (15-37); Albumin 3.7 g/dL (3.4-5.0); Alkaline Phosphatase 54 U/L (45-117); BUN Blood Urea Nitrogen 8 mg/dL (7-18); Bicarbonate 24 mEq/L (21-32); Bilirubin Direct 0.1 mg/dL (0-0.2); Bilirubin Indirect, Calculated 0.2 mg/dL (0.2-0.8); Bilirubin Total 0.3 mg/dL (0.2-1.0); Glomerular Filtration Rate 106 ml/min (=/>90); Glucose Level 130 mg/dL (74-106); Potassium 3.5 mEq/L (3.5-5.1); Protein, Total 6.5 g/dL (6.4-8.2); Sodium Level 139 mEq/L (136-145)
[2023-02-02 17:10] LABS: Valproic Acid (Depakene) Level < 3.0 mcg/mL (50.0-100.0)
[2023-02-02] MEDS ORDERED: DIVALPROEX DR 250 MG TAB PO ONE (17:34)
--- NOTE | 2023-02-02 20:33 | ER ---
Nurse's Notes [facility] Name: Sofie Jensen Age: 22 yrs Sex: Female : 2000 Arrival Date: 02/02/2023 Time: 16:10 Bed 6 Private MD: Diagnosis: Other seizures;Hypoglycemia, unspecified;Cocaine use, unspecified with cocaine-induced mood disorder Presentation: 02/02 16:19 Chief complaint: EMS states: "toned out for having seizure like convulsions while in [facility]. On scene, BGL was 62. Administer D10 via 20 g to right AC. Pt currently post itical". Coronavirus screen: At this time, the client does not indicate any symptoms associated with coronavirus-19. Ebola Screen: No symptoms or risks identified at this time. Initial Sepsis Screen: Does the patient meet any 2 criteria? No. Patient's initial sepsis screen is negative. Does the patient have a suspected source of infection? No. Patient's initial sepsis screen is negative. Risk Assessment: Do you want to hurt yourself or someone else? Patient reports no desire to harm self or others. Onset of symptoms was February 02, 2023. 16:19 Method Of Arrival: EMS: [facility] 16:19 Acuity: EN 3 mb9 Historical: - Allergies: 16:21 [place] [employer] Derivatives; mb9 - PMHx: 16:21 Asthma; Seizure; mb9 - Immunization history:: Adult Immunizations unknown. - Social history:: Smoking status: unknown. - Family history:: not pertinent. - Hospitalizations: : No recent hospitalization is reported. Screenin:33 [facility] ED Fall Risk Assessment (Adult) History of falling in the last 3 months, 9 including since admission No falls in past 3 months (0 pts) Confusion or Disorientation Yes (5 pts) Intoxicated or Sedated No (0 pts) Impaired Gait Yes (1 pt) Mobility Assist Device Used No (0 pt) Altered Elimination No (0 pt) Score/Fall Risk Level 0 - 2 = Low Risk Oriented to surroundings, Maintained a safe environment, Educated pt \\T\\ family on fall prevention, incl call for assistance when getting out of bed. Abuse screen: Denies threats or abuse. Nutritional screening: No deficits noted. Tuberculosis screening: No symptoms or risk factors identified. Assessment: 16:32 General: Appears uncomfortable, Behavior is drowsy. Pain: Denies pain. Neuro: Level of mb9 Consciousness is confused, lethargic, Oriented to person. Cardiovascular: Heart tones S1 S2 present Patient's skin is warm and dry. Respiratory: Airway is patent Respiratory effort is even, unlabored, Respiratory pattern is regular, symmetrical. GI: Abdomen is flat, non-distended, Bowel sounds present X 4 quads. : Urine is clear. EENT: No signs and/or symptoms were reported regarding the EENT system. Derm: Skin is pink, warm \\T\\ dry. Musculoskeletal: Range of motion: intact in all extremities. 16:33 Reassessment: seizure precautions in place. mb9 17:25 Reassessment: pt climbing out of bed and attempting to pull IV out. Educated pt about mb9 importance of staying in bed and keeping IV in place. Pt currently laying in bed and crying. 18:22 Reassessment: No changes from previously documented assessment. Patient and/or family mb9 updated on plan of care and expected duration. Pain level reassessed. pt friend at bedside. 19:05 Reassessment: Pt is resting in bed with her friend at the bedside. Denies any needs, jb4 questions, or concerns at this time. Respirations are even and unlabored. 19:32 General: Appears in no apparent distress. Behavior is drowsy, flat. Pain: Denies pain. lg3 Neuro: Level of Consciousness is confused, lethargic, Oriented to person, place. Cardiovascular: No deficits noted. Denies chest pain. Respiratory: No deficits noted. Airway is patent Respiratory effort is even, unlabored, Respiratory pattern is regular, symmetrical. GI: No deficits noted. No signs and/or symptoms were reported involving the gastrointestinal system. Abdomen is flat, non-distended. : No deficits noted. No signs and/or symptoms were reported regarding the genitourinary system. EENT: No deficits noted. No signs and/or symptoms were reported regarding the EENT system. Derm: No deficits noted. No signs and/or symptoms reported regarding the dermatologic system. Skin is intact, is healthy with good turgor, Skin is dry, Skin is normal, Skin temperature is warm. Musculoskeletal: Circulation, motion, and sensation intact. Range of motion: intact in all extremities. 20:43 Neuro: Level of Consciousness is awake, alert, obeys commands, Oriented to person, kl place, time, situation. Vital Signs: 16:19 BP 114 / 76; Pulse 79; Resp 14; Temp 98.1; Pulse Ox 100% ; mb9 18:22 BP 110 / 72; Pulse 72; Resp 15; Pulse Ox 100% ; mb9 19:29 BP 106 / 58; Pulse 66; Resp 15; Pulse Ox 100% on R/A; lg3 20:44 BP 125 / 79; kl ED Course: 16:11 Patient arrived in ED. rn 16:11 Eduardo Bill MD is Attending Physician. rn 16:19 Nevaeh Newton RN is Primary Nurse. mb9 16:19 Arm band placed on. mb9 16:21 Triage completed. mb9 16:32 EKG done, by ED staff, reviewed by Eduardo Bill MD. Inserted saline lock: 20 gauge in mb9 right antecubital area, using aseptic technique. Blood collected. 16:33 Placed in gown. Bed in low position. Call light in reach. Side rails up X 1. Client mb9 placed on continuous cardiac and pulse oximetry monitoring. NIBP monitoring applied. athletic monitor on. 16:33 Depakote Sent. mb9 16:33 Acetaminophen Sent. mb9 16:33 Basic Metabolic Panel Sent. mb9 16:33 CBC with Diff Sent. mb9 16:33 ETOH Level Sent. mb9 16:33 Hepatic Function Sent. mb9 16:33 PT-INR Sent. mb9 16:33 Test, Urine Sent. mb9 16:33 Ptt, Activated Sent. mb9 16:33 Salicylate Sent. mb9 16:33 Urinalysis w/ reflexes Sent. mb9 16:33 Urine Drug Screen Sent. mb9 16:33 No provider procedures requiring assistance completed. mb9 19:03 Report given to Palmer. mb9 19:32 Patient maintains SpO2 saturation greater than 95% on room air. lg3 20:32 Ricky Ugalde MD is Referral Physician. rn 20:43 IV discontinued, intact, bleeding controlled, No redness/swelling at site. Pressure kl dressing applied. Administered Medications: 16:30 Drug: NS 0.9% IV 1000 ml IV at 1000 ml once Route: IV; Rate: 1000 ml; Site: right ld1 antecubital; 18:29 Follow up: Response: No adverse reaction; IV Status: Completed infusion mb9 16:30 Drug: D10 in Water IVP 250 ml IVP once Route: IVP; Site: right antecubital; ld1 18:29 Follow up: Response: No adverse reaction mb9 17:25 Drug: Valproic Acid PO 500 mg PO once Route: PO; mb9 18:29 Follow up: Response: No adverse reaction mb9 Medication: 16:33 VIS not applicable for this client. mb9 Outcome: 20:32 Discharge ordered by . rn 20:44 Patient left the ED. kl Signatures: Luz Aceves RN RN Eduardo Beavers MD MD rn Bryson, James, RN RN jb4 Beata Rivero RN RN lg3 Enriqueta Augustine RN RN ld1 Nevaeh Newton RN RN mb9
--- NOTE | 2023-02-02 20:33 | EDPHYS ---
Physician Documentation [facility] Name: Sofie Jensen Age: 22 yrs Sex: Female : 2000 Arrival Date: 02/02/2023 Time: 16:10 Bed 6 Private MD: ED Physician Eduardo Bill HPI: 02/02 16:16 This 22 yrs old Female presents to ER via Unassigned with complaints of rn seizure, low blood sugar. 16:16 The patient presents after having a possible seizure episode. Seizure onset: just prior rn to arrival. Associated injury: The patient did not suffer any apparent associated injury. Current symptoms: confusion. EMS called to shelter for possible seizure, no seizure activity noted by EMS but was told saw seizure-like activity or convulsions on the camera. Patient had been there for about 2 hours. Admits to smoking marijuana and taking a white pill earlier today. Does not know what that pill was. No trauma noted. Glucose was in the 60s and given D10 with improvement.. Historical: - Allergies: 16:21 [place] [employer] Derivatives; mb9 - PMHx: 16:21 Asthma; Seizure; mb9 - Immunization history:: Adult Immunizations unknown. - Social history:: Smoking status: unknown. - Family history:: not pertinent. - Hospitalizations: : No recent hospitalization is reported. ROS: 16:16 Constitutional: Negative for fever, chills, and weight loss, Neck: Negative for injury, rn pain, and swelling, Cardiovascular: Negative for chest pain, palpitations, and edema, Respiratory: Negative for shortness of breath, cough, wheezing, and pleuritic chest pain, Abdomen/GI: Negative for abdominal pain, nausea, vomiting, diarrhea, and constipation, MS/Extremity: Negative for injury and deformity, Skin: Negative for injury, rash, and discoloration, Neuro: Positive for seizure Exam: 16:16 Constitutional: This is a well developed, well nourished patient who is awake, but rn somnolent, answering questions, slurred speech Head/Face: Normocephalic, atraumatic. Eyes: Pupils equal round and reactive to light, extra-ocular motions intact. ENT: No oral trauma noted Neck: Trachea midline, no masses palpated, and no cervical lymphadenopathy. Supple, full range of motion without nuchal rigidity, or vertebral point tenderness. No Meningismus. Cardiovascular: Regular rate and rhythm. No pulse deficits. Respiratory: No increased work of breathing, no retractions or nasal flaring. Abdomen/GI: Soft, non-tender MS/ Extremity: Pulses equal, no cyanosis. Neurovascular intact. Full, normal range of motion. Equal circumference. Neuro: Somnolent but awake, slurred speech, answers questions, moves all 4 extremities equally, sensation intact 16:30 ECG was reviewed by the Attending Physician. rn Vital Signs: 16:19 BP 114 / 76; Pulse 79; Resp 14; Temp 98.1; Pulse Ox 100% ; mb9 18:22 BP 110 / 72; Pulse 72; Resp 15; Pulse Ox 100% ; mb9 19:29 BP 106 / 58; Pulse 66; Resp 15; Pulse Ox 100% on R/A; lg3 20:44 BP 125 / 79; kl MDM: 16:11 Patient medically screened. rn 17:59 ED course: Patient now more alert. Able to get out of bed. Still speaking slowly but rn has a more legible conversation. Patient states used to take Depakote and did not react well to Keppra, had increased anger. Drug screen positive for cocaine, benzos, THC. Anticipate observation in ER and as she continues to improve anticipate discharge home.. 20:20 Differential diagnosis: drug overdose, seizure. Data reviewed: vital signs, nurses rn notes, lab test result(s), EKG, and as a result, I will discharge patient. Counseling: I had a detailed discussion with the patient and/or guardian regarding the historical points, exam findings, and any diagnostic results supporting the discharge/admit diagnosis, lab results, the need for outpatient follow up, to return to the emergency department if symptoms worsen or persist or if there are any questions or concerns that arise at home. 20:31 ED course: Patient more alert, now eating, glucose remains above 100. Not on any rn diabetic medication. Will recheck glucose and discharged home in care of friend. Advised to stay away from drugs. Refill Depakote and explained to patient the importance of taking her medication as Depakote level was basically 0.. 02/02 16:12 Order name: Acetaminophen; Complete Time: 17:14 rn 02/02 16:12 Order name: Basic Metabolic Panel; Complete Time: 17:14 rn 02/02 16:12 Order name: CBC with Diff; Complete Time: 17:09 rn 02/02 16:12 Order name: ETOH Level; Complete Time: 17:09 rn 02/02 16:12 Order name: Hepatic Function; Complete Time: 17:14 rn 02/02 16:12 Order name: PT-INR; Complete Time: 17:09 rn 02/02 16:12 Order name: Test, Urine; Complete Time: 16:48 rn 02/02 16:12 Order name: Ptt, Activated; Complete Time: 17:09 rn 02/02 16:12 Order name: Salicylate; Complete Time: 17:23 rn 02/02 16:12 Order name: Urinalysis w/ reflexes; Complete Time: 16:48 rn 02/02 16:12 Order name: Urine Drug Screen; Complete Time: 17:09 rn 02/02 16:12 Order name: Depakote; Complete Time: 17:14 rn 02/02 17:31 Order name: Glucose, Ancillary Testing; Complete Time: 17:31 EDMS 02/02 19:48 Order name: Glucose, Ancillary Testing; Complete Time: 19:56 EDMS 02/02 16:12 Order name: EKG; Complete Time: 16:13 rn 02/02 16:12 Order name: EKG - Nurse/Tech; Complete Time: 16:21 rn 02/02 16:12 Order name: IV Saline Lock; Complete Time: 16:21 rn 02/02 16:12 Order name: Labs collected and sent; Complete Time: 16:21 02/02 16:12 Order name: Suicide Screening ([place]); Complete Time: 18:29 rn EC:30 Rate is 72 beats/min. Rhythm is regular. QRS [place] is Normal. [place] interval is normal. QRS rn interval is normal. QT interval is normal. No Q waves. T waves are Normal. No ST changes noted. Clinical impression: Normal ECG. Interpreted by me. Reviewed by me. Administered Medications: 16:30 Drug: NS 0.9% IV 1000 ml IV at 1000 ml once Route: IV; Rate: 1000 ml; Site: right ld1 antecubital; 18:29 Follow up: Response: No adverse reaction; IV Status: Completed infusion mb9 16:30 Drug: D10 in Water IVP 250 ml IVP once Route: IVP; Site: right antecubital; ld1 18:29 Follow up: Response: No adverse reaction mb9 17:25 Drug: Valproic Acid PO 500 mg PO once Route: PO; mb9 18:29 Follow up: Response: No adverse reaction mb9 Disposition Summary: 02/02/23 20:32 Discharge Ordered Notes: Location: Home rn Problem: new rn Symptoms: have improved rn Condition: Stable rn Diagnosis - Other seizures rn - Hypoglycemia, unspecified rn - Cocaine use, unspecified with cocaine-induced mood disorder rn Followup: rn - With: Ricky Ugalde MD - When: As needed - Reason: Recheck today's complaints, Re-evaluation by your physician Discharge Instructions: - Discharge Summary Sheet rn - Hypoglycemia rn - Seizure, Adult rn Forms: - Medication Reconciliation Form rn - Thank You Letter rn - Antibiotic workers compensation defense attorney - Prescription Opioid Use rn - Patient Portal Instructions rn - Leadership Thank You Letter rn Prescriptions: - Depakote 500 mg Oral Tablet - take 1 tablet ORAL route every 12 hours; 60 tablet; Refills: 0, Product rn Selection Permitted Signatures: Dispatcher [employer] Eduardo Mitchell MD MD rn Sims, Lauren, RN RN ld1 Nevaeh Newton RN RN mb9
[2023-02-02 21:21] VITALS: TEMP 98.1; O2SAT 100
[2023-02-02 21:26] VITALS: BP 125/79
--- NOTE | 2023-02-04 17:28 | EKG ---
Test Date: 2023-02-02 Test Time: 16:25:01 [employer] Supervisor: SEKOU MEASUREMENT RESULTS: Intervals: Rate: 72 [place]: 190 QRSD: 86 QT: 352 QTc: 385 [place]: P: 76 [place]: 190 QRS: 76 T: 68 INTERPRETIVE STATEMENTS: Normal sinus rhythm with sinus arrhythmia Normal ECG Compared to ECG 12/08/2022 19:48:42 No significant changes Electronically Signed On 02-04-23 17:22:58 MERCHANDISE DISPLAYER by Hayden Frank
== END 2023-02-02 20:44 | disposition home or self-care (01) ==
LOC: ER 16:10
DX: R56.9 Unspecified convulsions (principal); E16.2 Hypoglycemia, unspecified; F14.94 Cocaine use, unspecified with cocaine-induced mood disorder
CPT/HCPCS: 96361; 93005; 85025; 80048; 36415; 81025; 85610; 82947 ×2; 80076; 80164; 85730; 81003; 80307; 96360; 99285; 80143; 80179; 82077; J7030

== ENCOUNTER 2023-06-18 11:26 | Emergency (ER) | payer OTHER ==
[2023-06-18] MEDS ORDERED: LEVETIRACETAM 500 MG/5 ML VIAL IV ONE (12:25)
[2023-06-18] MEDS ORDERED: NA CHLORIDE 0.9% 1,000 ML ONE (12:25)
[2023-06-18] MEDS ORDERED: NA CHLORIDE 0.9% 100 ML ONE (12:25)
[2023-06-18] MEDS ORDERED: LORazepam 2 MG/ML VIAL ONE (12:25)
[2023-06-18 12:28] LABS: Absolute Eosinophils 0.1 K/uL (0-0.5); Absolute Lymphocytes (CBC) 1.4 K/uL (0.7-4.9); Absolute Monocytes 0.7 K/uL (0.1-1.3); Absolute Neutrophil 4.1 K/uL (1.8-8.0); Basophils % 0.6 % (0-1.3); Eosinophils % 2.2 % (0-4.4); Hematocrit 40.8 % (36.0-45.0); Hemoglobin 13.4 g/dL (12.0-15.0); MCH 29.1 pg (27.0-35.0); MCHC 32.9 g/dL (32.0-36.0); MCV 88.5 fL (80-100); MPV 10.5 fL (7.6-11.3); Monocytes % 10.6 % (3.3-12.3); Neutrophils % 64.6 % (41.7-73.7); Platelets 171 thou/uL (152-406); RBC Red Blood Cell Count 4.61 M/uL (3.86-4.86); Red Cell Distribution Width 13.9 % (12.1-15.2)
[2023-06-18 12:34] LABS: Specific Gravity 1.009 (1.005-1.030); Sqamous Epithelial 20-50 /HPF (None Seen); Urine Bacteria <20 /HPF (<20); Urine Bilirubin NEGATIVE (Negative); Urine Blood 3+ (OVER) (Negative); Urine Clarity Extremely Turbid (Clear); Urine Color Brown (Yellow); Urine Culture Reflex Order NOT NEEDED; Urine Glucose NEGATIVE (Negative); Urine Ketones NEGATIVE (Negative); Urine Microscopic Reflex YN ORDER UMIC; Urine Nitrite NEGATIVE (Negative); Urine Protein 1+ (Negative); Urine RBC >50 /HPF (None Seen); Urine Urobilinogen Normal (Normal); Urine pH 6.5 (5.0-7.0)
[2023-06-18 12:37] LABS: Barbiturates NEGATIVE (NEGATIVE); Benzodiazepines NEGATIVE (NEGATIVE); Cocaine NEGATIVE (NEGATIVE); METHAMPHETAM NEGATIVE (NEGATIVE); Methadone NEGATIVE (NEGATIVE); Opiates NEGATIVE (NEGATIVE); Phencyclidine NEGATIVE (NEGATIVE); THC Cannibis POSITIVE (NEGATIVE)
[2023-06-18 12:42] LABS: Albumin 3.9 g/dL (3.4-5.0); Albumin/Globulin Ratio 1.3 (1.1-1.8); Anion Gap 7.6 mEq/L (5.0-15.0); Bilirubin Total 0.4 mg/dL (0.2-1.0); Globulin 3.1 g/dL (2.3-3.5); Potassium 3.6 mEq/L (3.5-5.1)
[2023-06-18] MEDS ORDERED: CEFTRIAXONE 1000 MG/VIAL ONE (13:38)
--- NOTE | 2023-06-18 13:55 | EDPHYS ---
Physician Documentation [facility] Name: Sofie Jensen Age: 22 yrs Sex: Female : 2000 Arrival Date: 06/18/2023 Time: 11:26 Bed 8 Private MD: ED Physician Evan Ochoa HPI: 06/17 13:47 This 22 yrs old Female presents to ER via EMS with complaints of Seizure. gina 13:47 The patient presents after having a single isolated seizure, that lasted 30 second(s). gina Character of seizure(s): Loss of consciousness: the patient did not lose consciousness, Motor activity: generalized, shaking all over, Incontinence: none, Apnea: the patient did not experience apnea, Circulation: the patient did not experience evidence of pulse disturbance. Seizure onset: just prior to arrival. Context: the seizure(s) was witnessed, by family, mother, occurred at home. Seizure Hx: Cause: unknown, Last seizure: The patient's last seizure "not sure", Seizure medications: none. Associated injury: The patient did not suffer any apparent associated injury. Current symptoms: Currently, the patient is not experiencing any symptoms. The patient has experienced similar episodes in the past, multiple times. 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 - Social history:: Smoking status: Patient denies any tobacco usage or history of. - Family history:: not pertinent. ROS: 13:47 Constitutional: Negative for fever, chills, and weight loss, Eyes: Negative for injury, gina pain, redness, and discharge, ENT: Negative for injury, pain, and discharge, Neck: Negative for injury, pain, and swelling, Cardiovascular: Negative for chest pain, palpitations, and edema, Respiratory: Negative for shortness of breath, cough, wheezing, and pleuritic chest pain, Abdomen/GI: Negative for abdominal pain, nausea, vomiting, diarrhea, and constipation, Back: Negative for injury and pain, : Negative for injury, bleeding, discharge, and swelling, MS/Extremity: Negative for injury and deformity, Skin: Negative for injury, rash, and discoloration, Psych: Negative for depression, anxiety, suicide ideation, homicidal ideation, and hallucinations, Allergy/Immunology: Negative for hives, rash, and allergies, Endocrine: Negative for neck swelling, polydipsia, polyuria, polyphagia, and marked weight changes, Hematologic/Lymphatic: Negative for swollen nodes, abnormal bleeding, and unusual bruising, 13:47 Neuro: Positive for seizure activity, Exam: 13:47 Constitutional: This is a well developed, well nourished patient who is awake, alert, gina and in no acute distress. Head/Face: Normocephalic, atraumatic. Eyes: Pupils equal round and reactive to light, extra-ocular motions intact. Lids and lashes normal. Conjunctiva and sclera are non-icteric and not injected. Cornea within normal limits. Periorbital areas with no swelling, redness, or edema. ENT: Nares patent. No nasal discharge, no septal abnormalities noted. Tympanic membranes are normal and external auditory canals are clear. Oropharynx with no redness, swelling, or masses, exudates, or evidence of obstruction, uvula midline. Mucous membranes moist. Neck: Trachea midline, no thyromegaly or masses palpated, and no cervical lymphadenopathy. Supple, full range of motion without nuchal rigidity, or vertebral point tenderness. No Meningismus. Chest/axilla: Normal chest wall appearance and motion. Nontender with no deformity. No lesions are appreciated. Cardiovascular: Regular rate and rhythm with a normal S1 and S2. No gallops, murmurs, or rubs. Normal PMI, no JVD. No pulse deficits. Respiratory: Lungs have equal breath sounds bilaterally, clear to auscultation and percussion. No rales, rhonchi or wheezes noted. No increased work of breathing, no retractions or nasal flaring. Abdomen/GI: Soft, non-tender, with normal bowel sounds. No distension or tympany. No guarding or rebound. No evidence of tenderness throughout. Back: No spinal tenderness. No costovertebral tenderness. Full range of motion. Skin: Warm, dry with normal turgor. Normal color with no rashes, no lesions, and no evidence of cellulitis. MS/ Extremity: Pulses equal, no cyanosis. Neurovascular intact. Full, normal range of motion. Neuro: Awake and alert, GCS 15, oriented to person, place, time, and situation. Cranial nerves II-XII grossly intact. Motor strength 5/5 in all extremities. Sensory grossly intact. Cerebellar exam normal. Normal gait. Psych: Awake, alert, with orientation to person, place and time. Behavior, mood, and affect are within normal limits. 14:08 ECG was reviewed by the Attending Physician. gina 14:19 ECG was reviewed by the Attending Physician. [facility] Vital Signs: 11:29 BP 118 / 82; Pulse 67; Resp 18; Temp 98.2; Pulse Ox 98% ; Weight 53.98 kg; Height 5 ft. cp4 5 in. ; Pain 0/10; 12:30 BP 121 / 74; Pulse 83; Resp 18; Pulse Ox 100% ; cp4 13:30 BP 130 / 87; Pulse 90; Resp 18; Pulse Ox 100% ; cp4 14:30 BP 105 / 64; Pulse 79; Resp 18; Pulse Ox 100% ; cp4 11:29 Body Mass Index 19.80 (53.98 kg, 165.1 cm) cp4 11:29 Pain Scale: Adult cp4 Savannah Coma Score: 11:34 Eye Response: spontaneous(4). Motor Response: obeys commands(6). Verbal Response: cp4 oriented(5). Total: 15. MDM: 11:31 Patient medically screened. [facility] 13:52 Differential diagnosis: cerebral vascular accident, drug overdose, cardiac arrhythmia, gina seizure, TIA. Data reviewed: vital signs, nurses notes, lab test result(s), EKG. Consideration of Admission/Observation Escalation of care including admission/observation considered. I considered the following discharge prescriptions or medication management in the emergency department Medications were administered in the Emergency Department. See MAR. Independent interpretation of the following test(s) in the Emergency Department EKG: See my EKG interpretation above. Historians other than the Patient: Family Member: MOM WELL INFORMED. Care significantly affected by the following chronic conditions: ASTHMA , SEIZURE. 06/17 11:41 Order name: CBC with Diff; Complete Time: 13:34 [facility] 06/17 11:41 Order name: Comprehensive Metabolic Panel; Complete Time: 13:34 [facility] 06/17 11:41 Order name: Urinalysis w/ reflexes; Complete Time: 13:34 [facility] 06/17 11:41 Order name: PREGU; Complete Time: 13:34 [facility] 06/17 11:41 Order name: UDS; Complete Time: 13:34 [facility] 06/17 13:35 Order name: Urine Culture [facility] 06/17 13:52 Order name: EKG; Complete Time: 13:52 [facility] 06/17 11:41 Order name: Seizure Precautions; Complete Time: 11:47 [facility] 06/17 13:52 Order name: EKG - Nurse/Tech; Complete Time: 14:20 [facility] EC:19 Rate is 87 beats/min. Rhythm is regular. QRS Baldwin is Normal. GA interval is normal. QRS gina interval is normal. QT interval is normal. No Q waves. T waves are Normal. No ST changes noted. Clinical impression: NSR w/ Non-specific ST/T Changes and No evidence of ischemia. Interpreted by me. Reviewed by me. Administered Medications: 12:32 Drug: Keppra IV 1000 mg IV at per protocol once Route: IV; Rate: per protocol; Site: [facility] right antecubital; 12:37 Follow up: Response: No adverse reaction; IV Status: Completed infusion cp4 12:33 Drug: NS 0.9% IV 1000 ml IV at 1 bolus Per protocol; 1000 mL bolus Route: IV; Rate: 1 cp4 bolus; Site: right antecubital; 14:36 Follow up: Response: No adverse reaction; IV Status: Completed infusion cp4 12:33 Drug: Ativan IVP 1 mg IVP once Route: IVP; Site: right antecubital; cp4 12:40 Follow up: Response: No adverse reaction cp4 13:49 Drug: Rocephin IV 1 grams IV at per protocol once; Given slow IV push per pharmacy cp4 instructions Route: IV; Rate: per protocol; Site: right antecubital; 14:36 Follow up: Response: No adverse reaction; IV Status: Completed infusion cp4 14:20 Drug: Valproic Acid PO 500 mg PO once Route: PO; cp4 14:35 Follow up: Response: No adverse reaction cp4 Disposition Summary: 06/18/23 13:55 Discharge Ordered Notes: Location: Home gina Problem: new gina Symptoms: have improved gina Condition: Stable gina Diagnosis - UTI/ Urinary tract infection, site not specified gina - Epileptic seizures related to external causes gina Followup: gina - With: Private Physician - When: 2 - 3 days - Reason: Recheck today's complaints, Continuance of care, Re-evaluation by your physician Discharge Instructions: - Discharge Summary Sheet gina - Dysuria gina - Non-Epileptic Seizures, Adult gina - Seizure, Adult gina - Urinary Tract Infection, Adult gina - Urinary Tract Infection, Pediatric gina - Urinary Tract Infection, Adult, [id number] gina - Seizure, Adult, [id number] gina Forms: - Medication Reconciliation Form [facility] - Thank You Letter gina - Antibiotic Education gina - Prescription Opioid Use gina - Patient Portal Instructions [facility] - Leadership Thank You Letter [facility] Prescriptions: - Cipro 250 mg Oral tablet - take 1 tablet ORAL route every 12 hours; 14 tablet; Refills: 0, Product gina Selection Permitted - Depakote 500 mg Oral tablet, delayed release (enteric coated) - take 1 tablet ORAL route every 12 hours; 30 tablet; Refills: 0, Product gina Selection Permitted Signatures: Dispatcher [employer] EDMS Evan Ochoa MD MD cha Potter, Christina cp4 Corrections: (The following items were deleted from the chart) 14:20 14:08 Rate is 74 beats/min. Rhythm is regular. QRS Baldwin is Normal. GA interval is gina normal. QRS interval is normal. QT interval is normal. No Q waves. T waves are Normal. No ST changes noted. Clinical impression: Normal ECG and No evidence of ischemia. Interpreted by me. Reviewed by me. gina
--- NOTE | 2023-06-18 13:55 | ER ---
Nurse's Notes [facility] Name: Sofie Jensen Age: 22 yrs Sex: Female : 2000 Arrival Date: 06/18/2023 Time: 11:26 Bed 8 Private MD: Diagnosis: UTI/ Urinary tract infection, site not specified;Epileptic seizures related to external causes Presentation: 06/17 11:29 Chief complaint: EMS states: of seizure that lasted approximately 3 minutes. Patient is cp4 supposed to take Keppra but has been out since March. Coronavirus screen: Client denies travel out of the [place] in the last 14 days. At this time, the client does not indicate any symptoms associated with coronavirus-19. Ebola Screen: Patient negative for fever greater than or equal to 101.5 degrees Fahrenheit, and additional compatible Ebola Virus Disease symptoms Patient denies exposure to infectious person. Patient denies travel to an Ebola-affected area in the 21 days before illness onset. No symptoms or risks identified at this time. Initial Sepsis Screen: Does the patient meet any 2 criteria? No. Patient's initial sepsis screen is negative. Does the patient have a suspected source of infection? No. Patient's initial sepsis screen is negative. Risk Assessment: Do you want to hurt yourself or someone else? Patient reports no desire to harm self or others. Onset of symptoms was June 18, 2023. Care prior to arrival:. 11:29 Method Of Arrival: EMS: [facility] cp4 11:29 Acuity: EN 3 cp4 Triage Assessment: 11:34 General: Appears in no apparent distress. Behavior is calm, cooperative, appropriate cp4 for age. Pain: Denies pain. Neuro: No deficits noted. 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 - Social history:: Smoking status: Patient denies any tobacco usage or history of. - Family history:: not pertinent. Screenin:35 [facility] ED Fall Risk Assessment (Adult) History of falling in the last 3 months, cp4 including since admission No falls in past 3 months (0 pts) Confusion or Disorientation No (0 pts) Intoxicated or Sedated No (0 pts) Impaired Gait No (0 pts) Mobility Assist Device Used No (0 pt) Altered Elimination No (0 pt) Score/Fall Risk Level 0 - 2 = Low Risk Oriented to surroundings, Maintained a safe environment, Assessed \T\ reinforced patient's understanding of fall precautions, Hourly rounding (assess needs \T\ fall precautionary measures) done. Abuse screen: Denies threats or abuse. Nutritional screening: No deficits noted. Tuberculosis screening: No symptoms or risk factors identified. Assessment: 11:35 Reassessment: No changes from previously documented assessment. cp4 Vital Signs: 11:29 BP 118 / 82; Pulse 67; Resp 18; Temp 98.2; Pulse Ox 98% ; Weight 53.98 kg; Height 5 ft. cp4 5 in. ; Pain 0/10; 12:30 BP 121 / 74; Pulse 83; Resp 18; Pulse Ox 100% ; cp4 13:30 BP 130 / 87; Pulse 90; Resp 18; Pulse Ox 100% ; cp4 14:30 BP 105 / 64; Pulse 79; Resp 18; Pulse Ox 100% ; cp4 11:29 Body Mass Index 19.80 (53.98 kg, 165.1 cm) cp4 11:29 Pain Scale: Adult cp4 Savannah Coma Score: 11:34 Eye Response: spontaneous(4). Motor Response: obeys commands(6). Verbal Response: cp4 oriented(5). Total: 15. ED Course: 11:29 Patient arrived in ED. cp4 11:29 Ginna Monroy is Primary Nurse. cp4 11:31 Evan Ochoa MD is Attending Physician. gina 11:34 Triage completed. cp4 11:34 Arm band placed on right wrist. Patient placed in an exam room, on a stretcher. cp4 11:35 Bed in low position. Call light in reach. Side rails up X2. Seizure precautions cp4 initiated. Provided Education on: seizure. 11:35 Warm blanket given. cp4 11:35 No provider procedures requiring assistance completed. Maintain EMS IV. Dressing cp4 intact. Good blood return noted. Site clean \T\ dry. Gauge \T\ site: 20G RAC. 12:21 Client placed on continuous cardiac and pulse oximetry monitoring. NIBP monitoring cp4 applied. autopsy assistant on. 12:21 UDS Sent. cp4 12:21 PREGU Sent. cp4 12:21 Urinalysis w/ reflexes Sent. cp4 12:21 Comprehensive Metabolic Panel Sent. cp4 12:21 CBC with Diff Sent. cp4 12:21 Initial lab(s) drawn, by me, sent to lab. Urine collected: clean catch specimen, blood cp4 tinged. 14:41 intact, bleeding controlled, No redness/swelling at site. Pressure dressing applied. cp4 Administered Medications: 12:32 Drug: Keppra IV 1000 mg IV at per protocol once Route: IV; Rate: per protocol; Site: cp4 right antecubital; 12:37 Follow up: Response: No adverse reaction; IV Status: Completed infusion cp4 12:33 Drug: NS 0.9% IV 1000 ml IV at 1 bolus Per protocol; 1000 mL bolus Route: IV; Rate: 1 cp4 bolus; Site: right antecubital; 14:36 Follow up: Response: No adverse reaction; IV Status: Completed infusion cp4 12:33 Drug: Ativan IVP 1 mg IVP once Route: IVP; Site: right antecubital; cp4 12:40 Follow up: Response: No adverse reaction cp4 13:49 Drug: Rocephin IV 1 grams IV at per protocol once; Given slow IV push per pharmacy cp4 instructions Route: IV; Rate: per protocol; Site: right antecubital; 14:36 Follow up: Response: No adverse reaction; IV Status: Completed infusion cp4 14:20 Drug: Valproic Acid PO 500 mg PO once Route: PO; cp4 14:35 Follow up: Response: No adverse reaction cp4 Medication: 11:35 VIS not applicable for this client. cp4 Outcome: 13:55 Discharge ordered by MD. fuentes 14:41 Discharged to home ambulatory, cp4 14:41 Condition: stable 14:41 Discharge instructions given to patient, Instructed on discharge instructions, follow up and referral plans. medication usage, Demonstrated understanding of instructions, follow-up care, medications, Prescriptions given X 2, 14:43 Patient left the ED. cp4 Signatures: Evan Ochoa MD MD cha Potter, Christina cp4
[2023-06-18] MEDS ORDERED: DIVALPROEX DR 250 MG TAB PO ONE (14:12)
[2023-06-18 14:49] VITALS: TEMP 98.2; O2SAT 100
[2023-06-18 15:13] VITALS: BP 105/64
--- NOTE | 2023-06-19 11:53 | EKG ---
Test Date: 2023-06-18 Test Time: 14:05:32 Chemical Lab Supervisor: ADEOLA MEASUREMENT RESULTS: Intervals: Rate: 87 AZ: 180 QRSD: 92 QT: 380 QTc: 457 Reddick: P: 66 AZ: 180 QRS: 79 T: 47 INTERPRETIVE STATEMENTS: Sinus rhythm with marked sinus arrhythmia Cannot rule out Anterior infarct, age undetermined Abnormal ECG Compared to ECG 02/02/2023 16:25:01 Myocardial infarct finding now present Electronically Signed On 06-19-23 11:49:24 CDT by Hayden Frank
== END 2023-06-18 14:43 | disposition home or self-care (01) ==
LOC: ER 11:26
DX: G40.509 Epileptic seizures related to external causes, not intractable, without status epilepticus (principal); N39.0 Urinary tract infection, site not specified; Z91.018 Allergy to other foods
CPT/HCPCS: 96365; 96361; 93005; 87088; 85025; 81001; 87086; 36415; 81025; 80053; 80307; 96375; 99285; J1953; J7030; J0696

== ENCOUNTER 2024-02-12 10:10 | Emergency (ER) | payer OTHER, BC ==
[2024-02-12] MEDS ORDERED: CEFTRIAXONE 500 MG/VIAL ONE (10:50)
[2024-02-12] MEDS ORDERED: WATER FOR INJ,STERILE 10 ML ONE (10:50)
[2024-02-12 11:20] LABS: Transitional Epithelial <5 /HPF (None Seen); Urine Bacteria 20-50 /HPF (<20); Urine Bilirubin NEGATIVE (Negative); Urine Blood 2+ (Negative); Urine Clarity Extremely Turbid (Clear); Urine Color Yellow (Yellow); Urine Culture Reflex Order NOT NEEDED; Urine Glucose NEGATIVE (Negative); Urine Ketones NEGATIVE (Negative); Urine Micro Reflex YN NO BILL MICROSCOPIC; Urine Mucus 2+ /HPF (None Seen); Urine Nitrite NEGATIVE (Negative); Urine Protein NEGATIVE (Negative); Urine RBC <5 /HPF (None Seen); Urine Urobilinogen Normal (Normal); Urine pH 5.5 (5.0-7.0)
--- NOTE | 2024-02-12 11:38 | ER ---
Nurse's Notes [facility] Name: Sofie Jensen Age: 23 yrs Sex: Female : 2000 Arrival Date: 02/12/2024 Time: 10:10 Bed 7 Private MD: Diagnosis: Concern for STD Exposure;UTI/ Urinary tract infection, site not specified Presentation: 02/11 10:44 Chief complaint: Patient states: I need to be tested for gonorrhea. My partner was with jb4 other people and I am having white and yellow discharge with sharp pains. Coronavirus screen: At this time, the client does not indicate any symptoms associated with coronavirus-19. Ebola Screen: No symptoms or risks identified at this time. Initial Sepsis Screen: Does the patient meet any 2 criteria? No. Patient's initial sepsis screen is negative. Does the patient have a suspected source of infection? No. Patient's initial sepsis screen is negative. Risk Assessment: Do you want to hurt yourself or someone else? Patient reports no desire to harm self or others. Onset of symptoms was February 12, 2024. Transition of care: patient was not received from another setting of care. 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 - Infectious Disease History:: Denies. - Social history:: Smoking status: Patient denies any tobacco usage or history of. Patient uses street drugs, marijuana. Screenin:46 [facility] ED Fall Risk Assessment (Adult) History of falling in the last 3 months, jb4 including since admission No falls in past 3 months (0 pts) Confusion or Disorientation No (0 pts) Intoxicated or Sedated No (0 pts) Impaired Gait No (0 pts) Mobility Assist Device Used Yes (1 pt) Altered Elimination No (0 pt) Score/Fall Risk Level 0 - 2 = Low Risk Oriented to surroundings, Maintained a safe environment. Abuse screen: Denies threats or abuse. Nutritional screening: No deficits noted. Tuberculosis screening: No symptoms or risk factors identified. Assessment: 10:46 General: Appears in no apparent distress. comfortable, Behavior is calm, cooperative, jb4 appropriate for age. Pain: Denies pain. Neuro: Level of Consciousness is awake, alert, obeys commands, Oriented to person, place, time, situation. Cardiovascular: Patient's skin is warm and dry. Respiratory: Airway is patent Respiratory effort is even, unlabored, Respiratory pattern is regular, symmetrical. : Reports discharge, from vagina that is white, yellow. Derm: Skin is intact, Skin is pink, warm \\T\\ dry. Musculoskeletal: Circulation, motion, and sensation intact. Range of motion: intact in all extremities. Vital Signs: 10:44 BP 105 / 81; Pulse 74; Resp 16; Temp 98.5(O); Pulse Ox 100% ; Weight 48.53 kg (R); jb4 Height 5 ft. 6 in. (R); Pain 0/10; 10:44 Body Mass Index 17.27 (48.53 kg, 167.64 cm) jb4 10:44 Pain Scale: Adult jb4 ED Course: 10:13 Patient arrived in ED. mg5 10:13 Mahesh Patel MD is Attending Physician. ec2 10:45 Triage completed. jb4 10:45 Arm band placed on right wrist. jb4 10:46 Patient has correct armband on for positive identification. Bed in low position. Call jb4 light in reach. Side rails up X 1. Provided Education on: plan of care. 10:46 No provider procedures requiring assistance completed. Patient did not have IV access jb4 during this emergency room visit. 11:18 Zechariah Robertson, RN is Primary Nurse. jb4 Administered Medications: 11:04 Drug: Rocephin (cefTRIAXone) IM 500 mg IM once Route: IM; Site: right gluteus; jb4 11:46 Follow up: Response: No adverse reaction jb4 Medication: 10:46 VIS not applicable for this client. jb4 Outcome: 11:36 Discharge ordered by . ec2 11:46 Discharged to home ambulatory, with family, jb4 11:46 Condition: stable 11:46 Discharge instructions given to patient, Instructed on discharge instructions, follow up and referral plans. no drinking with medication, medication usage, safe sex practices, Demonstrated understanding of instructions, follow-up care, medications, Prescriptions given X 2, 11:46 Patient left the ED. jb4 Signatures: Zechariah Robertson RN RN jb4 Kimmy Howell mg5 Mahesh Patel MD MD ec2
--- NOTE | 2024-02-12 11:38 | EDPHYS ---
Physician Documentation [facility] [address] Name: Sofie Jensen Age: 23 yrs Sex: Female : 2000 Arrival Date: 02/12/2024 Time: 10:10 Bed 7 Private MD: ED Physician Mahesh Patel HPI: 02/11 10:39 This 23 yrs old Female presents to ER via Unassigned with complaints of STD ec2 TEST. 10:39 Patient arrives today due to concern for STD. Patient reports that she is having some ec2 vaginal discharge, occasionally colored. Patient reports a foul malodorous smell to it. Patient reports otherwise no fevers or chills, no nausea or vomiting, no abdominal pain.. [employer]: 10:45 unknown, " I am currently on my cycle" jb4 Historical: - Allergies: 10:45 [place] And Derivatives; jb4 - PMHx: 10:45 Asthma; Seizure; jb4 - Immunization history:: Adult Immunizations up to date. - Infectious Disease History:: Denies. - Social history:: Smoking status: Patient denies any tobacco usage or history of. Patient uses street drugs, marijuana. ROS: 10:39 Constitutional: as per hpi ec2 Exam: 10:39 Constitutional: GEN: NAD Head: atraumatic Eyes: EOMI Ears: External ears are ec2 normal. CV: regular rate LUNGS: no respiratory distress ABD: non-distended SKIN: no evidence of rashes MSK: no evidence of trauma Vital Signs: 10:44 BP 105 / 81; Pulse 74; Resp 16; Temp 98.5(O); Pulse Ox 100% ; Weight 48.53 kg (R); jb4 Height 5 ft. 6 in. (R); Pain 0/10; 10:44 Body Mass Index 17.27 (48.53 kg, 167.64 cm) jb4 10:44 Pain Scale: Adult jb4 MDM: 10:14 Medical Screening Exam initiated ec2 10:40 Data reviewed: vital signs, nurses notes. ED course: Patient arrives today due to ec2 concern for STD. Examination is unrevealing. Will obtain GC/chlamydia as well as wet prep and empirically treat per patient request.. 11:36 ED course: Patient with leuk esterase as well as bacteria present in the urine. Will ec2 start the patient on antibiotics for urinary tract infection. Will discharge home with GC/chlamydia treatment as well. Patient discharged home. Return precautions given.. 02/11 10:39 Order name: Wet Prep; Complete Time: 11:36 ec2 02/11 10:39 Order name: UAM; Complete Time: 11:24 ec2 02/11 10:39 Order name: Test, Urine; Complete Time: 11:17 ec2 02/11 11:14 Order name: GC (Karel/Chl) Probe URINE EDMS 02/11 10:40 Order name: Misc. Order: self swab for wet-prep; Complete Time: 10:55 ec2 Administered Medications: 11:04 Drug: Rocephin (cefTRIAXone) IM 500 mg IM once Route: IM; Site: right gluteus; jb4 11:46 Follow up: Response: No adverse reaction jb4 Disposition Summary: 02/12/24 11:36 Discharge Ordered Notes: Location: Home ec2 Condition: Stable ec2 Diagnosis - Concern for STD Exposure ec2 - UTI/ Urinary tract infection, site not specified ec2 Followup: ec2 - With: Private Physician - When: - Reason: Re-evaluation by your physician Discharge Instructions: - Discharge Summary Sheet ec2 - Preventing Sexually Transmitted Infections, Adult ec2 Forms: - Medication Reconciliation Form ec2 - Antibiotic Education ec2 - Prescription Opioid Use ec2 - Patient Portal Instructions ec2 - Leadership Thank You Letter ec2 Prescriptions: - Cephalexin 500 mg Oral capsule - take 1 capsule ORAL route every 8 hours for 5 days; 15 capsule; Refills: 0, ec2 Product Selection Permitted - Doxycycline Monohydrate 100 mg Oral tablet - take 1 tablet ORAL route every 12 hours for 7 days; 14 tablet; Refills: 0, ec2 Product Selection Permitted Signatures: Dispatcher [employer] Zechariah Santoyo RN RN jb4 Mahesh Patel MD MD ec2 Corrections: (The following items were deleted from the chart) 10:40 10:40 Wet Prep+BA.LAB.BRZ ordered. EDMS EDMS 10:40 10:40 Urinalysis W/Microscopic+U.LAB.BRZ ordered. EDMS EDMS 10:40 10:40 Test, Urine+UC.LAB.BRZ ordered. EDMS EDMS 11:14 10:40 GC (Karel/Chl) Probe CX/URE+R.LAB.BRZ (Do not order if pt is under 13, order EDMS Culture instead) ordered. EDMS
[2024-02-12 14:00] VITALS: BP 105/81; TEMP 98.5; O2SAT 100
[2024-02-16 00:06] LABS: C.trachomatis RNA,TMA Not Detected (Not Detected); N.gonorrhoeae RNA,TMA Not Detected (Not Detected)
== END 2024-02-12 11:46 | disposition home or self-care (01) ==
LOC: ER 10:10
DX: Z20.2 Contact with and (suspected) exposure to infections with a predominantly sexual mode of transmission (principal); N39.0 Urinary tract infection, site not specified
CPT/HCPCS: 81001; 81025; 87210; 87490; 87590; 96372; 99284